=== PATIENT | female | born 1955 | race Caucasian/White ===

== ENCOUNTER 2023-02-28 11:50 | Outpatient (OUT) | payer BC, SELFPAY ==
--- NOTE | 2023-02-28 12:42 | MM_ITS ---
Patient Name: RADHA ERNANDEZ MR#: [id number] : 1955 Exam Date: 02/28/2023 Ordering Doctor: DR Jignesh Serna . RADIOLOGY REPORT PROCEDURE: MM TOMOSYNTHESIS SCREENING BI COMPARISON: MG MAMM SCREEN DANIELLE W CAD, 07/10/2017. MG MAMM SCREEN DANIELLE W CAD, 05/02/2015. INDICATIONS: screening Calculator Name NCI Breast Cancer Risk Assessment Tool 5 Year Breast Cancer Risk 1.70% Lifetime Breast Cancer Risk 5.60% Personal Breast Cancer No Personal Ovarian Cancer No Treatments None Family Cancers Father with prostate cancer at age 73. LOCATION: [facility] BREAST COMPOSITION: Scattered areas fibroglandular density. FINDINGS: DIAGNOSTIC CATEGORY 1--NEGATIVE. RIGHT BREAST: No significant suspicious finding. No significant change has occurred. LEFT BREAST: No significant suspicious finding. No significant change has occurred. RECOMMENDATIONS: ROUTINE MAMMOGRAM AND CLINICAL EVALUATION IN 12 MONTHS. PLEASE NOTE: A NORMAL MAMMOGRAM DOES NOT EXCLUDE THE POSSIBILITY OF BREAST CANCER. A CLINICALLY SUSPICIOUS PALPABLE LUMP SHOULD BE BIOPSIED. Dictated by: Javier Boyd M.D. on 02/28/2023 at 14:03 Approved by: Javier Boyd M.D. on 02/28/2023 at 14:06
== END 2023-02-28 11:51 | disposition home or self-care (01) ==
LOC: MAMMO 11:53
PROVIDERS: PCP Family Medicine; Visit Provider Family Medicine
DX: Z12.31 Encounter for screening mammogram for malignant neoplasm of breast (principal); Z80.42 Family history of malignant neoplasm of prostate
CPT/HCPCS: 77063; 77067

== ENCOUNTER 2023-11-14 18:36 | Emergency (ER) | payer OTHER, BC, SELFPAY ==
[2023-11-14 18:52] VITALS: BP 141/86; PULSE 86; TEMP 36.8; O2SAT 96; BMI 26.6
--- NOTE | 2023-11-14 18:56 | XR_ITS ---
The [address] [address] Patient Name: RADHA ERNANDEZ MRN: [id number] date: 1955 Sex: F Assigned Patient Location: ER Current Patient Location: ED.MAIN Accession/Order Number: [id number] Exam Date: 11/14/2023 19:08 Report Date: 11/14/2023 19:36 At the request of: FOUZIA CINTRON Procedure: XR wrist LT min 3V EXAM: XR wrist LT min 3V, XR forearm LT 2V HISTORY: The patient is a 68-year-old female, fall COMPARISON FINDINGS: There is a transverse fracture of the distal radial metaphysis. The lateral view demonstrates 12 degrees of dorsal angulation of the distal radial fracture fragment. The fracture is otherwise nondisplaced. There is also a minimally displaced fracture of the base of the ulnar styloid. No fractures or dislocations are seen of any of the carpal bones. No other fractures or cortical discontinuities are seen throughout the more proximal lengths of the radius and ulna. XR/XR wrist LT min 3V IMPRESSION: Dorsally angulated Colles' fracture. Electronically authenticated by: CATALINA LUCAS Date: 11/14/2023 19:36
--- NOTE | 2023-11-14 18:57 | XR_ITS ---
The [address] [address] Patient Name: RADHA ERNANDEZ MRN: [id number] date: 1955 Sex: F Assigned Patient Location: ER Current Patient Location: ED.MAIN Accession/Order Number: [id number] Exam Date: 11/14/2023 19:08 Report Date: 11/14/2023 19:36 At the request of: FOUZIA CINTRON Procedure: XR forearm LT 2V EXAM: XR wrist LT min 3V, XR forearm LT 2V HISTORY: The patient is a 68-year-old female, fall COMPARISON FINDINGS: There is a transverse fracture of the distal radial metaphysis. The lateral view demonstrates 12 degrees of dorsal angulation of the distal radial fracture fragment. The fracture is otherwise nondisplaced. There is also a minimally displaced fracture of the base of the ulnar styloid. No fractures or dislocations are seen of any of the carpal bones. No other fractures or cortical discontinuities are seen throughout the more proximal lengths of the radius and ulna. XR/XR forearm LT 2V IMPRESSION: Dorsally angulated Colles' fracture. Electronically authenticated by: CATALINA LUCAS Date: 11/14/2023 19:36
--- OUTSIDE RECORDS SUMMARY | 2023-11-14 19:09 | XMS_ITS | CCD ---
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 Engineer Name Role Phone PHYSICIAN, DEFAULT Unavailable Unavailable PHYSICIAN, DEFAULT Unavailable Unavailable PROVIDER, UNKNOWN Attending Unavailable PROVIDER, UNKNOWN Admitting Unavailable Rivka Reyez Unavailable DR JIGNESH SAEZ Primary Care Unavailable SAMSA ., TYRON Admitting Unavailable SAMSA ., TYRON Attending Unavailable NADJA, DR JIGNESH Zhou Consulting Unavailable NADJA, DR JIGNESH Zhou Attending Unavailable NADJA, DR JIGNESH Zhou Admitting Unavailable NADJA, DR JIGNESH Zhuo Primary Care Unavailable Jignesh Saez MD Primary Care Provider [phone] JIGNESH SAEZ Attending Unavailable NADJA, JIGNESH Attending Unavailable NADJA, JIGNESH Attending Unavailable NADJA, JIGNESH Attending Unavailable Jignehs Saez Primary Care Provider BRIEN WESTBROOK Referring Unavailab le JIGNESH SAEZ Primary Care Unavailable GIDEON RUELAS Attending Unavailable Medications Current Medications Medication Drug Class(es) Dates Sig (Normalized) Sig (Original) [id number] 200 actuat albuterol 0.09 mg/actuat metered dose inhaler (8 sources) beta2-Adrenergic Agonist Start: 02-18-2023 take 2 puff(s) by inhalation every four hours as needed albuterol HFA (PROVENTIL HFA, VENTOLIN HFA) 90 mcg/actuation inhaler Inhale 2 Puffs as instructed every 4 hours as needed. 0 02/18/2023 Active Start: 02-18-2023 take 2 puff(s) by in halation every four hours as needed albuterol HFA 90 mcg/act inhaler Indications: Chronic obstructive pulmonary disease with (acute) exacerbation (CMS/HCC) , Obstructive chronic bronchitis with exacerbation (CMS/HCC) INHALE 2 PUFFS EVERY 4 HOURS NEEDED 18 g 2 02/18/2023 Active albuterol (2.5 M G/3ML) 0.083% nebulizer solution Take 2.5 mg by nebulization every 4 (four) hours if needed for wheezing 0 Active Albuterol Sulfat e (2.5 MG/ 3 ML) Active amLODIPine (5 sources) Dihydropyridine Calcium Channel Bree amlodipine besylate (AMLODIPINE ORAL) Take by mouth. 0 Active take 1 tablet by mouth in the mo rning amLODIPine (Norvasc) 10 MG tablet Take 10 mg by mouth in the morning. 0 Active amLODIPine Besyl ate Active Arnuity Ellipta (1 source) Arnuity Ellipta Active cholecalciferol 0.05 mg oral tablet (4 sources) Vitamin D Start: 021 take 1 tablet by mouth once daily cholecalciferol (Vitamin D-3) 50 MCG (1999) tablet Indications: Vitamin D deficiency, unspecified , Vitamin D deficiency TAKE 1 TABLET BY MOUTH EVERY DAY 30 tablet 5 02/11/2023 Active doxycycline monohydrate 100 mg oral capsule (1 source) Tetracycline-class Drug Start: 023 take 1 capsule by mouth every twelve hours Doxycycline Monohydrate 100 MG 1 capsule Orally every 12 hrs for 7 days May, Active fluticasone/umeclidin/ vilanter (TRELEGY ELLIPTA INHALATION) (1 source) fluticasone/umec lidin /vilanter (TRELEGY ELLIPTA INHALATION) Inhale as instructed. 0 Active mupirocin 0.02 mg/mg topical ointment (1 source) RNA Synthetase Inhibitor Antibacterial Start: 023 Mupirocin 2 % 1 application to affected area Externally 2 times a day for 7 days May, Active omeprazole 40 mg delayed release oral capsule (4 sources) Proton Pump Inhibitor take 1 capsule by mouth before mealtime omeprazole (PriLOSEC) [address] capsule Take 40 mg by mouth in the morning. Take before meals. Do not crush or chew.. 0 Active Omeprazole Activ e phentermine hydrochloride 37.5 mg oral tablet (2 sources) Sympathomimetic Amine Anorectic Start: 04-11-2023 End: 05-11-2023 take 1 tablet by mouth before mealtime phentermine (Adipex-P) 37.5 MG tablet Indications: Obesity (BMI 30-39.9) Take 1 tablet (37.5 mg) by mouth in the morning. Take before meals. 30 tablet 0 04/11/2023 05/11/2023 Active Trelegy Ellipta 200-62.5-25 MCG/ACT aerosol powder (3 sources) Start: 02-19-2023 take 1 puff(s) by inhalation in the morning Trelegy Ellipta 200-62.5-25 MCG/ACT aerosol powder Inhale 1 puff in the morning. 0 02/19/2023 Active varenicline 1 mg oral tablet (8 sources) Partial Cholinergic Nicotinic Agonist Start: 04-11-2023 take 1 tablet by mouth in the morning varenicline (Chantix) 1 MG tablet Indications: Tobacco user Take 1 tablet (1 mg) by mouth in the morning and 1 tablet (1 mg) before bedtime. Take with full glass of water.. 60 tablet 1 04/11/2023 Active Start: 04-11-2023 take 1 tablet by angela th in the morning varenicline (Chantix) 1 MG tablet Indications: Tobacco user Take 1 tablet (1 mg) by mouth in the morning and 1 tablet (1 mg) before bedtime. Take with full glass of water.. 60 tablet 1 04/11/2023 Active Start: 02-19-2023 End: 04-11-2023 Varenicline Tartrate, Alonzo chicas, (Chantix Starting Month ) 0.5 MG X 11 & 1 MG X 42 tablet therapy pack Indications: Tobacco user Take 1 Dose by mouth See administration instructions 1 each 0 02/19/2023 04/11/2023 Discontinued vitamin B12 (1 source) Vitamin B12 Vitamin B 12 Act karine Completed/Discontinued Medications Medication Drug Class(es) Dates Sig (Normalized) Sig (Original) albuterol 0.833 mg/ml / ipratropium bromide 0.167 mg/ml inhalation solution (1 source) Anticholinergic, beta2-Adrenergic Agonist Start: 03-31-2017 take 3 mL by inhalation every six hours Ipratropium-Alb uterol 0.5-2.5 (3) MG/3ML 3 ml Inhalation every 6 hrs Mar, Not-Taking cefuroxime 500 mg oral tablet (1 source) Cephalosporin Antibacterial Start: 10-03-2016 take 1 tablet by mouth every twelve hours Cefuroxime Axetil 500 MG 1 tablet Orally Twice a day for 10 day(s) Oct, Not-Taking clarithromycin 500 mg oral tablet (1 source) Macrolide Antimicrobial Start: 02-22-2017 take 2 tablets by mouth once daily at mealtime Biaxin XL 500 MG 2 tablets with food Orally Once a day for 7 day(s) Feb, Not-Taking dexamethasone 1 mg/ml / neomycin 3.5 mg/ml / polymyxin b 11975 unt/ml ophthalmic suspension (1 source) Aminoglycoside Antibacterial, Polymyxin-class Antibacterial, Corticosteroid Start: 10-03-2016 take 2 drop(s) into the eye(s) three times daily Maxitrol 3.5-09222-4.1 2 drops into affected eye Ophthalmic Three times a day for 7 days Oct, Not-Taking methylPREDNISolone (1 source) Corticosteroid Start: 03-31-2017 Depo-Medrol 80 mg Mar, 80 mg predniSONE 20 mg oral tablet (1 source) Start: 02-22-2017 take 1 tablet by mouth once daily, then take 1 tablet by mouth once daily at mealtime predniSONE 20 MG 60 mg daily for 3 days then 40mg daily for 3 days then 1 tablet daily for 3 days then 20mg daily fo Orally take with food for 9 days Feb, Not-Taking ProAir HFA 108 (90 Base) MCG/ACT (1 source) Start: 02-22-2017 take 2 puff(s) by inhalation every four to six hours as needed ProAir HFA 108 (90 Base) MCG/ACT 2 puffs as needed Inhalation every 4-6 hrs Feb, Not-Taking Problems Problem Classification Problem Date Documented Date Episodic/Chronic Chronic obstructive pulmonary disease and bronchiectasis (6 sources) Acute exacerbation of chronic obstructive airways disease; Translations: [Chronic obstructive pulmonary disease with (acute) exacerbation] Onset: 02-19-2023 02-19-2023 Chronic Diabetes mellitus without complication (4 sources) Prediabetes; Translations: [Prediabetes] Onset: 04-27-2022 02-19-2023 Episodic Diseases of white blood cells (3 sources) 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; Translations: [Other eosinophilia] Onset: 02-19-2023 02-19-2023 Chronic Disorders of lipid metabolism (4 sources) Hyperlipidemia, unspecified; Translations: [Dyslipidemia] Onset: 04-27-2022 02-19-2023 Chronic E Codes: Natural/environment (1 source) Bitten or stung by nonvenomous insect and other nonvenomous arthropods, initial encounter Episodic Esophageal disorders (3 sources) Gastroesophageal reflux disease; Translations: [Gastro-esophageal reflux disease without esophagitis] Onset: 02-19-2023 02-19-2023 Chronic Essential hypertension (6 sources) Essential (primary) hypertension; Translations: [Benign essential hypertension] Onset: 04-27-2022 02-19-2023 Chronic Nutritional deficiencies (7 sources) Vitamin D deficiency, unspecified; Translations: [Vitamin D deficiency] Onset: 04-24-2022 Chronic Other aftercare (1 source) Other residential (current) drug therapy; Translations: [OTH .NET DEVELOPER CURRENT DRUG THERAPY] Onset: 04-27-2022 Episodic Other eye disorders (1 source) Ptosis of eyelid; Translations: [Unspecified ptosis of bilateral eyelids] 10-09-2023 Episodic Other nutritional; endocrine; and metabolic disorders (1 source) Obesity, unspecified; Translations: [OBESITY UNSPECIFIED] Onset: 04-27-2022 Chronic Other nutritional; endocrine; and metabolic disorders (1 source) Body mass index (BMI) 30.0-30.9, adult; Translations: [BODY MASS INDEX BMI 30.0-30.9 ADULT] Onset: 04-27-2022 Chronic Other nutritional; endocrine; and metabolic disorders (4 sources) Body mass index 30+ - obesity; Translations: [Obesity, unspecified] Onset: 04-11-2023 04-11-2023 Chronic Residual codes; unclassified (3 sources) Hypersomnia; Translations: [Hypersomnia, unspecified] Onset: 02-19-2023 02-19-2023 Chronic Residual codes; unclassified (5 sources) Edema of lower extremity; Translations: [Localized edema] Onset: 02-19-2023 02-19-2023 Episodic Residual codes; unclassified (5 sources) Tobacco user; Translations: [Tobacco use] Onset: 02-19-2023 02-19-2023 Episodic Results Test Name Value Interpretation Reference Range Facility EXTERNAL PHOTOS OU (BOTH EYE S)on 10-09-2023 [facility] Radiology Study observation (narrative) [facility] PTOSIS VISUAL FIELD OU (BOTH EYES)on 10-09-2023 [facility] Radiology Study observation (narrative) [facility] CBC AUTO DIFFon 04-24-2022 BASO # 0.1 103/ul Normal 0.0-0.1 [facility] Comment on above: Performed By: #### C BC #### [facility] [address] [address] [address] Brigette Peñaloza Basophils/100 WBC (Bld) 0.7 % Normal 0.2-2.0 [facility] Comment on above: Performed By: #### C BC #### [facility] [address] [address] [address] Brigette Peñaloza EO # 0.3 103/ul Normal 0.0-0.7 [facility] Comment on above: Performed By: #### C BC #### [facility] [address] [place] [address] Dr. Brigette Peñaloza Eosinophils/100 WBC (Bld) 4.9 % Normal 0.9-7.0 [facility] Comment on above: Performed By: #### C BC #### [facility] [address] [place] [address] Dr. Brigette Peñaloza Erythrocyte distribution width (RBC) [Ratio] 12.7 % Normal 11.0-15.0 [facility] Comment on above: Performed By: #### C BC #### [facility] [address] [place] [address] Dr. Brigette Peñaloza Hematocrit (Bld) [Volume fraction] 48.0 % Normal 36.0-48.0 [facility] Comment on above: Performed By: #### C BC #### [facility] [address] [place] [address] Dr. Brigette Peñaloza Hemoglobin (Bld) [Mass/Vol] 16.1 g/dL Critically high 12.0-16.0 [facility] Comment on above: Performed By: #### C BC #### [facility] [address] [place] [address] Dr. Brigette Peñaloza IG # 0.02 10e3/ul Normal 0.00-0.03 [facility] Comment on above: Performed By: #### C BC #### [facility] [address] [address] [address] Brigette Peñaloza IG % 0.3 % Normal 0.0-0.5 [facility] Comment on above: Performed By: #### C BC #### [facility] [address] [place] [address] Dr. Brigette Peñaloza LYMPH # 2.7 103/ul Normal 1.2-3.8 [facility] Comment on above: Performed By: #### C BC #### [facility] [address] [place] [address] Dr. Brigette Peñaloza Lymphocytes/100 WBC (Bld) 39.2 % Normal 20.5-60.0 [facility] Comment on above: Performed By: #### C BC #### [facility] [address] [place] [address] Dr. Brigette Peñaloza MANUAL DIFF REQ NO Normal [facility] Comment on above: Performed By: #### C BC #### [facility] [address] [place] [address] Dr. Brigette Peñaloza MCH (RBC) [Entitic mass] 30.3 pg Normal 26.7-34.0 [facility] Comment on above: Performed By: #### C BC #### [facility] [address] [place] [address] Dr. Brigette Peñaloza MCHC (RBC) [Mass/Vol] 33.5 g/dL Normal 29.9-35.2 [facility] Comment on above: Performed By: #### C BC #### [facility] [address] [place] [address] Dr. Brigette Peñaloza MCV (RBC) [Entitic vol] 90.4 fL Normal 81.0-99.0 [facility] Comment on above: Performed By: #### C BC #### [facility] [address] [place] [address] Dr. Brigette Peñaloza MONO # 0.7 103/ul Normal 0.3-0.8 [facility] Comment on above: Performed By: #### C BC #### [facility] [address] [place] [address] Dr. Brigette Peñaloza Monocytes/100 WBC (Bld) 9.9 % Normal 1.7-12.0 [facility] Comment on above: Performed By: #### C BC #### [facility] [address] [place] [address] Dr. Brigette Peñaloza NEUT # 3.1 103/ul Normal 1.4-6.5 [facility] Comment on above: Performed By: #### C BC #### [facility] [address] [place] [address] Dr. Brigette Peñaloza Neutrophils/100 WBC (Bld) 45.0 % Normal 43.0-75.0 [facility] Comment on above: Performed By: #### C BC #### [facility] [address] [place] [address] Dr. Brigette Peñaloza Platelet mean volume (Bld) [Entitic vol] 10.2 fL Normal 9.5-13.5 [facility] Comment on above: Performed By: #### C BC #### [facility] [address] [place] [address] Dr. Brigette Peñaloza PLT 283 103/ul Normal 150-450 [facility] Comment on above: Performed By: #### C BC #### [facility] [address] [place] [address] Dr. Brigette Peñaloza RBC 5.31 106/ul Normal 4.20-5.40 [facility] Comment on above: Performed By: #### C BC #### [facility] [address] [place] [address] Dr. Brigette Peñaloza WBC 7.0 103/ul Normal 4.0-11.0 [facility] Comment on above: Performed By: #### C BC #### [facility] [address] [place] [address] Dr. Brigette Peñaloza GLYCOHEMOGLOBIN A1Con 2022 ADA RECOMMENDATION SEE BELOW Normal [facility] Comment on above: Result Comment: ADA RECOMMENDED LIMIT 4.0 - 6.0 ADA THERAPEUTIC TARGET < 7.0 ACTION SUGGESTED > 7.0 Performed By: #### A 1C #### [facility] [address] [address] [address] Brigette Peñaloza Glucose [Mass/Vol] 117 mg/dL Normal [facility] Comment on above: Performed By: #### A 1C #### [facility] [address] [address] [address] Brigette Peñaloza HbA1c (Bld) [Mass fraction] 5.7 % Normal 4.5-6.2 [facility] Comment on above: Performed By: #### A 1C #### [facility] [address] [address] [address] Brigette Peñaloza LIPID PROFILEon 04-24-2022 CHOL-HDL RATIO NORM SEE BELOW Normal [facility] Comment on above: Result Comment: 3.3 - 4.4 LOW RISK 4.4 - 7.1 AVERAGE RISK 7.1 - 11.0 MODERATE RISK >11.0 HIGH RISK Performed By: #### L IPID, TSH, LIVER, BMP #### [facility] [address] [address] [address] Brigette Peñaloza Cholesterol [Mass/Vol] 187 mg/dL Normal <=200 [facility] Comment on above: Performed By: #### L IPID, TSH, LIVER, BMP #### [facility] [address] [address] [address] Brigette Peñaloza Cholesterol in HDL [Mass/Vol] 54 mg/dL Normal 40-60 [facility] Comment on above: Performed By: #### L IPID, TSH, LIVER, BMP #### [facility] [address] [address] [address] Brigette Peñaloza Cholesterol in LDL [Mass/Vol] 105.6 mg/dL Normal [facility] Comment on above: Performed By: #### L IPID, TSH, LIVER, BMP #### [facility] [address] [address] [address] Brigette Peñaloza Cholesterol.total/Cho lesterol in HDL [Mass ratio] 3.5 {ratio} Normal [facility] Comment on above: Performed By: #### L IPID, TSH, LIVER, BMP #### [facility] [address] [address] [address] Brigette Peñaloza HDL NORMAL > or = 60 mg/dl - LOW CARDIOVASCULAR RISK <40 mg/dl - HIGH CARDIOVASCULAR RISK Normal [facility] Comment on above: Performed By: #### L IPID, TSH, LIVER, BMP #### [facility] [address] [address] [address] Brigette Peñaloza LDL CALC NORMAL SEE BELOW Normal [facility] Comment on above: Result Comment: <100 mg/dl OPTIMAL 100 - 129 mg/dl NEAR OR ABOVE OPTIMAL 130 - 159 mg/dl BORDERLINE HIGH 160 - 189 mg/dl HIGH >190 mg/dl VERY HIGH Performed By: #### L IPID, TSH, LIVER, BMP #### [facility] [address] [place] [address] Dr. Brigette Peñaloza Triglyceride [Mass/Vol] 137 mg/dL Normal <=150 [facility] Comment on above: Performed By: #### L IPID, TSH, LIVER, BMP #### [facility] [address] [address] [address] Brigette Peñaloza VLDL CALC 27.4 mg/dL Normal [facility] Comment on above: Performed By: #### L IPID, TSH, LIVER, BMP #### [facility] [address] [place] [address] Dr. Brigette Peñaloza LIVER PROFILEon 04-24-2022 Albumin [Mass/Vol] 3.6 g/dL Normal 3.4-5.0 [facility] Comment on above: Performed By: #### L IPID, TSH, LIVER, BMP #### [facility] [address] [place] [address] Dr. Brigette Peñaloza Albumin/Globulin [Mass ratio] 1.0 {ratio} Normal [facility] Comment on above: Performed By: #### L IPID, TSH, LIVER, BMP #### [facility] [address] [place] [address] Dr. Brigette Peñaloza ALP [Catalytic activity/Vol] 97 U/L Normal 46-116 [facility] Comment on above: Performed By: #### L IPID, TSH, LIVER, BMP #### [facility] [address] [address] [address] Brigette Peñaloza ALT [Catalytic activity/Vol] 41 U/L Normal 14-59 [facility] Comment on above: Performed By: #### L IPID, TSH, LIVER, BMP #### [facility] [address] [address] [address] Brigette Peñaloza AST [Catalytic activity/Vol] 24 U/L Normal 15-37 [facility] Comment on above: Performed By: #### L IPID, TSH, LIVER, BMP #### [facility] [address] [address] [address] Brigette Peñaloza BILI, CONJUGATED 0.1 mg/dL Normal 0.0-0.2 [facility] Comment on above: Performed By: #### L IPID, TSH, LIVER, BMP #### [facility] [address] [place] [address] Dr. Brigette Peñaloza Bilirubin [Mass/Vol] 0.3 mg/dL Normal 0.2-1.0 [facility] Comment on above: Performed By: #### L IPID, TSH, LIVER, BMP #### [facility] [address] [address] [address] Brigette Peñaloza Globulin (S) [Mass/Vol] 3.5 g/dL Normal [facility] Comment on above: Performed By: #### L IPID, TSH, LIVER, BMP #### [facility] [address] [place] [address] Dr. Brigette Peñaloza Protein [Mass/Vol] 7.1 g/dL Normal 6.4-8.2 [facility] Comment on above: Performed By: #### L IPID, TSH, LIVER, BMP #### [facility] [address] [address] [address] Brigette Peñaloza PROF CHEM 8 (BAS METB)on Anion gap [Moles/Vol] 8.7 mmol/L Normal [facility] Comment on above: Performed By: #### L IPID, TSH, LIVER, BMP #### [facility] [address] [place] [address] Dr. Brigette Peñaloza Calcium [Mass/Vol] 9.1 mg/dL Normal 8.5-10.1 [facility] Comment on above: Performed By: #### L IPID, TSH, LIVER, BMP #### [facility] [address] [address] [address] Brigette Peñaloza Chloride [Moles/Vol] 106 mmol/L Normal 98-107 [facility] Comment on above: Performed By: #### L IPID, TSH, LIVER, BMP #### [facility] [address] [address] [address] Brigette Peñaloza CO2 [Moles/Vol] 29.7 mmol/L Normal 21.0-32.0 [facility] Comment on above: Performed By: #### L IPID, TSH, LIVER, BMP #### [facility] [address] [place] [address] Dr. Brigette Peñaloza Creatinine [Mass/Vol] 0.81 mg/dL Normal 0.55-1.02 [facility] Comment on above: Performed By: #### L IPID, TSH, LIVER, BMP #### [facility] [address] [place] [address] Dr. Brigette Pñealoza EGFR-AF SAMOAN >60 Normal >=60 [facility] Comment on above: Performed By: #### L IPID, TSH, LIVER, BMP #### [facility] [address] [place] [address] Dr. Brigette Peñaloza EGFR-NON AF SAMOAN >60 Normal >=60 [facility] Comment on above: Performed By: #### L IPID, TSH, LIVER, BMP #### [facility] [address] [address] [address] Brigette Peñaloza Glucose [Mass/Vol] 114 mg/dL Critically high 74-106 [facility] Comment on above: Performed By: #### L IPID, TSH, LIVER, BMP #### [facility] [address] [address] [address] Brigette Peñaloza Potassium [Moles/Vol] 4.4 mmol/L Normal 3.5-5.1 [facility] Comment on above: Performed By: #### L IPID, TSH, LIVER, BMP #### [facility] [address] [place] [address] Dr. Brigette Peñaloza Sodium [Moles/Vol] 140 mmol/L Normal 136-145 [facility] Comment on above: Performed By: #### L IPID, TSH, LIVER, BMP #### [facility] [address] [place] [address] Dr. Brigette Peñaloza Urea nitrogen [Mass/Vol] 9.0 mg/dL Normal 7.0-18.0 [facility] Comment on above: Performed By: #### L IPID, TSH, LIVER, BMP #### [facility] [address] [place] [address] Dr. Brigette Peñaloza Urea nitrogen/Creatinine [Mass ratio] 11.1 mg/mg Normal [facility] Comment on above: Performed By: #### L IPID, TSH, LIVER, BMP #### [facility] [address] [place] [address] Dr. Brigette Peñaloza TSHon 04-24-2022 TSH 1.598 uIU/mL Normal 0.358-3.740 [facility] Comment on above: Performed By: #### L IPID, TSH, LIVER, BMP #### [facility] [address] [place] [address] Dr. Brigette Peñaloza VITAMIN D 25 OHon 04-24-2022 VIT D 25-OH 50.4 ng/mL Normal [facility] Comment on above: Performed By: #### V ITAD #### [facility] [address] [place] [address] Dr. Brigette Peñaloza VIT D RANGES SEE BELOW Normal [facility] Comment on above: Result Comment: <20 ng/mL Vit D deficient 20 - <30 ng/mL Vit D insufficient 30 - 100 ng/mL Vit D sufficient >100 ng/mL Potential Toxicity Performed By: #### V ITAD #### [facility] [address] [place] [address] Dr. Brigette Peñaloza Vital Signs Date Time Vital Sign Value Performing Clinician Facility 04-11-2023 13:13-0500 Body height 167.6 cm Jignesh Saez MD Work Phone: [facility] 04-11-2023 13:13-0500 Body mass index (BMI) [Ratio] 29.7 kg/m2 Jignesh Saez MD Work Phone: [facility] 04-11-2023 13:13-0500 Body temperature 97.3 [degF] Jignesh Saez MD Work Phone: [facility] 04-11-2023 13:13-0500 Body weight 83.46 kg Jignesh Saez MD Work Phone: [facility] 04-11-2023 13:13-0500 Diastolic blood pressure 70 mm[Hg] Jignesh Saez MD Work Phone: [facility] 04-11-2023 13:13-0500 Heart rate 80 /min Jignesh Saez MD Work Phone: [facility] 04-11-2023 13:13-0500 SaO2% (BldA) [Mass fraction] 95 % Jignesh Saez MD Work Phone: [facility] 04-11-2023 13:13-0500 Systolic blood pressure 130 mm[Hg] Jignesh Saez MD Work Phone: [facility] 05-13-2022 15:30-0400 Body height 165.74 cm Rivka Reyez Other [employer] Other 05-13-2022 15:30-0400 Body mass index (BMI) [Ratio] 30.45 kg/m2 Rivka Reyez Other [employer] Other 05-13-2022 15:30-0400 Body temperature 98.9 [degF] Rivka Reyez Other [employer] Other 05-13-2022 15:30-0400 Body weight 83.64 kg Rivka Reyez Other [employer] Other 05-13-2022 15:30-0400 Diastolic blood pressure 69 mm[Hg] Rivka Reyez Other [employer] Other 05-13-2022 15:30-0400 SaO2% (BldA) [Mass fraction] 93 % Rivka Reyez Other [employer] Other 05-13-2022 15:30-0400 Systolic blood pressure 116 mm[Hg] Rivka Reyez Other [employer] Other Encounters Encounter Date Encounter Type Care Provider Facility Start: 10-09-2023 End: 10-09-2023 ambulatory BRIEN WESTBROOK Facility:[facility] Start: 10-09-2023 End: 10-09-2023 Office outpatient new 45 minutes Gideon Ruelas MD Work Phone: Ophthalmology Comment on above: Ptosis of both eyeli ds (Primary Dx) Start: 07-11-2023 End: 07-11-2023 ambulatory JIGNESH SAEZ Not Available Start: 05-07-2023 End: 05-07-2023 ambulatory JIGNESH SAEZ Not Available Start: 04-11-2023 End: 04-11-2023 ambulatory JIGNESH SAEZ Not Available Start: 04-11-2023 Bamboo flowsheet Jignesh Saez MD Work Phone: [facility] Start: 04-11-2023 Bamboo flowsheet Jignesh Saez MD Work Phone: [facility] Start: 04-11-2023 End: 04-11-2023 Office outpatient visit 25 minutes Jignesh Saez MD Work Phone: [facility] Comment on above: Essential hypertensi on, benign (CMS/HCC) (Primary Dx); Chronic obstructive pulmonary disease, unspecified COPD type (CMS/HCC); Tobacco user; Obesity (BMI 30-39.9); Lower extremity edema Start: 02-19-2023 End: 02-19-2023 ambulatory JIGNESH SAEZ Not Available Start: 05-13-2022 End: 05-13-2022 ambulatory Rivka Dereje Other [employer] Other Start: 05-13-2022 Office outpatient ne w 20 minutes Rikva Reyez [facility] Start: 04-24-2022 End: 04-25-[address] JIGNESH SAEZ Facility:[facility] Start: 09-27-2021 End: 09-27-[address] JIGNESH SAEZ Facility:[facility] Start: 07-17-2020 End: 07-18-2020 ambulatory UNKNOWN PROVIDER Facility:[facility] Start: 04-19-2017 End: 04-20-2017 Ambulatory DEFAULT PHYSICIAN Facility:[facility] Procedures Date Procedure Procedure Detail Performing Clinician Start: 10-09-2023 End: 10-09-2023 Xtrnl ocular photog w/i&r docmt medical progre Gideon Ruelas MD Work Phone: Start: 02-28-2023 Mammography Jignesh nowak MD Work Phone: Start: 10-09-2018 Colonoscopy Jignesh nowak MD Work Phone: Plan of Treatment Date Care Activity Detail Author Start: 10-09-2028 Screening for malign ant neoplasm of colon [facility] Start: 02-29-2024 Screening for malign ant neoplasm of breast Mammogram [facility] Start: 11-03-2023 Influenza vaccination Influenza Vacc ine (#1) [facility] Start: 05-07-2023 End: 05-07-2023 Patient encounter procedure 05/07/2023 9:15 AM EST Office Visit [facility] [address] [place] [id number] Jignesh Saez MD [address] [place] [id number] [facility] Start: 03-04-2023 Advance Directive Discussion Advance Directive Discussion [facility] Start: 11-02-2022 Covid-19 Vaccine ( season) Covid-19 Vaccine ( season) [facility] Start: 11-02-2022 Influenza vaccination Influenza Vacc ine (#1) [facility] Start: 05-05-2019 Pneumococcal Vaccine : 65+ (1 of 1 - PCV) Pneumococcal Vaccine: 65+ (1 of 1 - PCV) [facility] Start: 05-05-2019 Screening for osteoporosis Bone Density Screening [facility] Start: 2014 RSV Vaccine (1 - 1-d ose 60+ series) RSV Vaccine (1 - 1-dose 60+ series) [facility] Start: 2004 Shingrix Vaccine (1 of 2) Shingrix V accine (1 of 2) [facility] Start: 05-05-1999 Diabetes Screening Diabetes Screenin g [facility] Start: 05-05-1999 Lipid panel Lipid Screening [facility] Start: 05-05-1999 Screening for malign ant neoplasm of colon [facility] Start: 1994 Screening for malign ant neoplasm of breast Mammogram Screening [facility] Start: 1973 Urine microalbumin profile DTaP,Tdap,Td Vaccine (1 - Tdap) [facility] Start: 1972 Anxiety Screening Anxiety Screening [facility] Start: 1972 Depression Screening Depression Scre ening [facility] Start: 1972 Hepatitis C screening Hepatitis C Sc miladisning [facility] Start: 1960 Pneumococcal Vaccine : 65+ Years (1 - PCV) Pneumococcal Vaccine: 65+ Years (1 - PCV) [facility] Start: 1954 Screening for malign ant neoplasm of colon [facility] Payers Date Payer Category Payer Medicare [id number] 2019 Unknown 1959 [facility] [id number] 1960 Medicare [id number] 1954 Unknown 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 Other Start: 02-19-2023 End: 10-09-2023 Tobacco smoking status [facility] Ex-smoker [facility] End: 06-09-2017 History of tobacco use Current smoker [facility] End: 06-09-2017 History of tobacco use Cigarette Smoker [facility] Start: 02-19-2023 End: 10-09-2023 Cigarettes smoked current (pack per day) - Reported 0.3 [facility] Start: 02-19-2023 End: 10-09-2023 Tobacco use and exposure Smokeless tobacco non-user [facility] Start: 1955 Sex Assigned At Not on file [facility] Start: 10-09-2023 Alcohol intake Current drinke r of alcohol (finding) [facility] National Score (1-100), lower number is lower risk 80 [facility] Start: 10-09-2023 Alcohol Comment occasional [facility] Clinical Note 10-09-2023 Note Date & Type Note Facility 10-09-2023 Note Date of Procedure 10/09/2023. Notes Bilateral upper eyelid ptosis with brow ptosis, dermatochalasis, skin on lashes temporally. [facility] Clinical Note 10-09-2023 Note Date & Type Note Facility 10-09-2023 Note Date of Procedure 10/09/2023. 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 Left Eye Difference between Bishop visual field results of lids tapped and untaped 15. Interpretation Right Eye Decreased superior visual field. Left Eye Decreased superior visual field. [facility] Instructions 10-09-2023 Patient Instructions Note Date & Type Note Facility 10-09-2023 Instructions Gideon Ruelas MD - 10/09/2023 11:44 AM EDT Blepharoptosis, bilateral upper eyelids -Levator dehiscence and dermatochalasis in setting of mild brow ptosis Patient has brow ptosis lower than orbital rims, especially laterally -Without brow lift there will be suboptimal improvement of heavy upper lids. Consider bilateral upper lid blepharoplasty, will still have some heaviness 2/2 brow ptosis, but hopefully improved. Need certain amt of skin to close eyes. Discussed ptosis surgery. Usually ptosis surgery is done either via an anterior or posterior approach. The anterior approach is more powerful but less predictable and the posterior approach is more predictable but less powerful. Contact lens will be placed in eye(s) to protect eye from stitch, risk of corneal abrasion discussed Ptosis surgery sometimes is unpredictable; may need multiple surgeries Risk yoel of dryness of eye/asymmetry Xavier's phenomenon can also occur (other side drops because less drive to raise eyelids as well as brows drop from less forehead use to raise eyelids) *bloody tears after surgery expected, maybe bleeding episode, if occurs hold pressure 10-15 min documented in this encounter [facility] Progress note 10-09-2023 Note Date & Type Note Facility 10-09-2023 Note HNO ID: [id number] Author: GIDEON RUELAS MD Service: ? Author Type: Fellow Type: Progress Notes Filed: 11/06/2023 15:39 Note Text: History: Pepper Lacy is a 68 year old woman with history of droopy eyelids, now bothersome for the past year. She was referred by her customer service engineer Dr. Westbrook for dermatochalasis. She is most bothered when she looks to the right. Otherwise she also has some trouble looking to the left. Also notes tearing and dryness. No problems with eyelids in the past. No diplopia. No trouble breathing or holding her head up. No recent changes to her medications. Notes previously took drops for dryness, stopped taking them because they did not help. Visual field review: Right: 15 degree improvement with taping, within 20 degrees of fixation nasally Left: 15 degree improvement with taping, within 20 degrees of fixation nasally Photos obtained. Exam: Mild brow ptosis bilateral Deep superior sulcus Skin on lashes laterally MRD1: 1.0/1.5 Post-Joe MRD1: 3.0/3.5 AL: LF: EOMs full both eyes Blepharoptosis, bilateral upper eyelids -Levator dehiscence in setting of mild brow ptosis Patient has brow ptosis lower than orbital rims, especially laterally -Without brow lift there will be suboptimal improvement of heavy upper lids. Consider bilateral upper lid blepharoplasty, will still have some heaviness 2/2 brow ptosis, but hopefully improved. Need certain amt of skin to close eyes. Discussed ptosis surgery. Usually ptosis surgery is done either via an anterior or posterior approach. The anterior approach is more powerful but less predictable and the posterior approach is more predictable but less powerful. Contact lens will be placed in eye(s) to protect eye from stitch, risk of corneal abrasion discussed Ptosis surgery sometimes is unpredictable; may need multiple surgeries Risk yoel of dryness of eye/asymmetry Xavier's phenomenon can also occur (other side drops because less drive to raise eyelids as well as brows drop from less forehead use to raise eyelids) *bloody tears after surgery expected, maybe bleeding episode, if occurs hold pressure 10-15 min Patient elects to observe. States she just wanted to make sure there was nothing that absolutely needed correction. Will return in 1 year prn. I have confirmed and edited as necessary the relevant ophthalmic history, ROS, and the neuro exam findings as obtained by others. I have seen and examined Pepper Lacy. I also have reviewed and agree with the assessment and plan as stated above and agree with all of its relevant components. I, Gideon Ruelas MD, personally performed the services described in this documentation. I have reviewed the chart and discharge instructions (if applicable) and agree that the record reflects my personal performance and is accurate and complete. If clarification is needed regarding any of the above, please contact me directly at [phone]. Gideon Ruelas MD [facility] History of Present illness Narrative 10-09-2023 Gideon Ruelas MD - 10/09/2023 11:17 AM EDT Note Date & Type Note Facility 10-09-2023 History of Presen t illness Narrative History: Pepper Lacy is a 68 year old woman with history of droopy eyelids, now bothersome for the past year. She was referred by her customer service engineer Dr. Westbrook for dermatochalasis. She is most bothered when she looks to the right. Otherwise she also has some trouble looking to the left. Also notes tearing and dryness. No problems with eyelids in the past. No diplopia. No trouble breathing or holding her head up. No recent changes to her medications. Notes previously took drops for dryness, stopped taking them because they did not help. Visual field review: Right: 15 degree improvement with taping, within 20 degrees of fixation nasally Left: 15 degree improvement with taping, within 20 degrees of fixation nasally Photos obtained. Exam: Mild brow ptosis bilateral Deep superior sulcus Skin on lashes laterally MRD1: 1.0/1.5 Post-Joe MRD1: 3.0/3.5 AL: LF: EOMs full both eyes Blepharoptosis, bilateral upper eyelids -Levator dehiscence in setting of mild brow ptosis Patient has brow ptosis lower than orbital rims, especially laterally -Without brow lift there will be suboptimal improvement of heavy upper lids. Consider bilateral upper lid blepharoplasty, will still have some heaviness 2/2 brow ptosis, but hopefully improved. Need certain amt of skin to close eyes. Discussed ptosis surgery. Usually ptosis surgery is done either via an anterior or posterior approach. The anterior approach is more powerful but less predictable and the posterior approach is more predictable but less powerful. Contact lens will be placed in eye(s) to protect eye from stitch, risk of corneal abrasion discussed Ptosis surgery sometimes is unpredictable; may need multiple surgeries Risk yoel of dryness of eye/asymmetry Xavier's phenomenon can also occur (other side drops because less drive to raise eyelids as well as brows drop from less forehead use to raise eyelids) *bloody tears after surgery expected, maybe bleeding episode, if occurs hold pressure 10-15 min Patient elects to observe. States she just wanted to make sure there was nothing that absolutely needed correction. Will return in 1 year prn. documented in this encounter [facility] History of Present illness Narrative 04-11-2023 Jignesh Saez MD - 04/11/2023 1:27 PM Araceli Saez MD - 04/11/2023 1:27 PM Araceli Saez MD - 04/11/2023 1:27 PM Araceli Saez MD - 04/11/2023 1:27 PM EST Note Date & Type Note Facility 04-11-2023 History of Presen t illness Narrative Associated Problem(s): Obesity (BMI 30-39.9) Patient overweight and difficult time losing weight. Discussed proper diet and regular aerobic exercise. Recommend Weight Watchers and need to limit calories and smaller portions. Need to increase activity and regular aerobic exercise several days a week for 30 minutes at a time. Interested in adipex and warned of potential cardiac side effects. Script written for first month and will need to recheck weight in 1 month. OARRS reviewed. Continue medications as prescribed. Associated Problem(s): Lower extremity edema No edema and elevate legs PRN. Associated Problem(s): Tobacco user Doing well with chantix and stopped smoking. Continue medication for additional 8 weeks. Associated Problem(s): Essential hypertension, benign (CMS/HCC) BP controlled and monitor PRN. Associated Problem(s): COPD (chronic obstructive pulmonary disease) ([facility]) Breathing improved after stopping smoking and continue trelegy. Use albuterol PRN. Subjective Patient ID: Pepper Lacy is a 67 y.o. female who presents for Follow-up (1 m). Follow up HTN, COPD, smoking, and edema. Patient doing well today. Checking BP PRN and typically controlled. BP normal today. Taking medication daily and tolerating without side effects. Stopped smoking and doing well with chantix. Still occasional cravings and will continue medication. COPD improved. Mild SOB with exertion. No cough or sputum. Using trelegy PRN but not needed as often. Using albuterol PRN and helps when needed. Edema controlled with medication. Mild swelling at end of day and if on feet a lot. Edema improved in am and with elevation. Wants adipex for weight loss. Gained 2 pounds since last visit. Plan on increasing activity and walking more. Plan on watching diet and eating healthier. Review of Systems Respiratory: Negative for cough, shortness of breath and wheezing. Cardiovascular: Negative for chest pain and palpitations. Gastrointestinal: Negative for abdominal pain, diarrhea, nausea and vomiting. Genitourinary: Negative for dysuria. Objective Physical Exam Constitutional: General: She is not in acute distress. Appearance: Normal appearance. HENT: Head: Normocephalic. Right Ear: Tympanic membrane normal. Left Ear: Tympanic membrane normal. Eyes: Extraocular Movements: Extraocular movements intact. Pupils: Pupils are equal, round, and reactive to light. Cardiovascular: Rate and Rhythm: Normal rate and regular rhythm. Heart sounds: No murmur heard. No friction rub. No gallop. Pulmonary: Effort: Pulmonary effort is normal. Breath sounds: Normal breath sounds. No wheezing, rhonchi or rales. Abdominal: General: Bowel sounds are normal. There is no distension. Palpations: Abdomen is soft. Tenderness: There is no abdominal tenderness. There is no guarding or rebound. Musculoskeletal: Cervical back: Neck supple. Right lower leg: No edema. Left lower leg: No edema. Neurological: Mental Status: She is alert. Assessment/Plan Problem List Items Addressed This Visit Essential hypertension, benign (CMS/HCC) - Primary BP controlled and monitor PRN. Lower extremity edema No edema and elevate legs PRN. COPD (chronic obstructive pulmonary disease) (CMS/HCC) Breathing improved after stopping smoking and continue trelegy. Use albuterol PRN. Tobacco user Doing well with chantix and stopped smoking. Continue medication for additional 8 weeks. Relevant Medications varenicline (Chantix) 1 MG tablet Obesity (BMI 30-39.9) Patient overweight and difficult time losing weight. Discussed proper diet and regular aerobic exercise. Recommend Weight Watchers and need to limit calories and smaller portions. Need to increase activity and regular aerobic exercise several days a week for 30 minutes at a time. Interested in adipex and warned of potential cardiac side effects. Script written for first month and will need to recheck weight in 1 month. OARRS reviewed. Continue medications as prescribed. Relevant Medications phentermine (Adipex-P) 37.5 MG tablet documented in this encounter [facility] Evaluation note 05-13-2022 Note Date & Type Note Facility 05-13-2022 Evaluation note Encounter Date Diagnosis Assessment Notes May, Bug bite, initial encounter (ICD-10 - W57.XXXA) Take medications as directed. Complete all doses. Unable to determine what type of insect cause bites. . Follow up with primary care provider if no improvement of symptoms with treatment plan [employer] Other Evaluation note Note Date & Type Note Facility Evaluation note Diagnosis Essential hypertension, benign (CMS/HCC)- Primary Essential hypertension, benign Chronic obstructive pulmonary disease, unspecified COPD type ([facility]) Tobacco user Tobacco use disorder Obesity (BMI 30-39.9) Lower extremity edema Edema documented in this encounter [facility] Evaluation note Note Date & Type Note Facility Evaluation note Diagnosis Ptosis of both eyelids- Primary Unspecified ptosis of eyelid documented in this encounter [facility] History general Narrative - Reported Note Date & Type Note Facility History general Narrative - Reported Type Medical History Esophageal reflux Medical History Hypertension Medical History Chronic bronchitis Surgical History tubal Surgical History appendectomy Hospitalization History see above Hospitalization History sob, low 02 levels 06/21 18 07/2017 [employer] Other Summary Purpose Family History No Family History Records FoundNo Family History Records FoundNo Family History Records FoundNo Family History Records FoundNo Family History Records Found Advance Directives No Advanced Directives Records FoundNo Advanced Directives Records FoundNo Advanced Directives Records FoundNo Advanced Directives Records FoundNo Advanced Directives Records Found Reason for Referral Specialty Diagnoses / Procedures Referred By Contac t Referred To Contact Diagnoses Obesity (BMI 30-39.9) Jignesh Saez MD [address] [place] [address] Referral ID Status Reason Start Date Expiration Date V isits Requested Visits Authorized [id number] Pending Review 1 1 Additional Source Comments INFORMATION SOURCE (unrecogn ized section and content) DATE CREATED AUTHOR 08/23/2017 [facility] DATE CREATED AUTHOR AUTHOR'S ORGANIZ ATION 07/18/2020 [facility] DATE CREATED AUTHOR AUTHOR'S ORGANIZ ATION 07/11/2022 [facility] pital DATE CREATED AUTHOR AUTHOR'S ORGANIZ ATION 07/13/2023 [facility] EPIC DATE CREATED AUTHOR AUTHOR'S ORGANIZ ATION 11/08/2023 [facility] REASON FOR VISIT (unrecogniz ed section and content) Reason Comments Follow-up 1 m Reason Comments Dermatochalasis Evaluation Care Teams (unrecognized sec tion and content) Barge Engineer Relationship Specialty Start Date End Date Jignesh Saez MD [address] [place] [phone] PCP - General Family Medicine 04/11/23 Barge Engineer Relationship Specialty Start Date End Date Jignesh Saez MD [address] [place] [phone] PCP - General Family Medicine 04/11/23 Barge Engineer Relationship Specialty Start Date End Date Jignesh Saez [address] [place] [phone] PCP - General Family Medicine 09/26/23 Source Comments (unrecognize d section and content) In the event this informatio n is protected by the Federal Confidentiality of Alcohol and Drug Abuse Patient Records regulations: The Federal rules restrict any use of the information to criminally investigate or prosecute any alcohol or drug abuse patient.[facility] FOR RECORDS PERTAINING TO PATIENTS WHO ARE OR HAVE BEEN ENROLLED IN A CHEMICAL DEPENDENCY/SUBSTANCEABUSE PROGRAM, SOME INFORMATION MAY BE OMITTED. This clinical summary was aggregated from multiple sources. Caution should be exercised in using it in the provision of clinical care. This summary normalizes information from multiple sources, and as a consequence, information in this document may materially change the coding, format and clinical context of patient data. In addition, data may be omitted in some cases. CLINICAL DECISIONS SHOULD BE BASED ON THE PRIMARY CLINICAL RECORDS. [employer] provides no warranty or guarantee of the accuracy or completeness of information in this document.
--- NOTE | 2023-11-14 19:33 | ED.UPPEXIN1 ---
HPI HPI - Extremity Injury (Upper) General Chief Complaint: Extremity Injury, Upper Stated Complaint: UE INJURY Time Seen by Provider: 11/14/23 18:52 Source: patient and family Mode of arrival: walk-in History of Present Illness HPI narrative: 68-year-old female presents for chief complaint of left wrist injury. Patient states she thought she was on the bottom step while carrying laundry down in her basement missed a step and landed on her left wrist. Obvious deformity is noted. Extremities neurovascularly intact. The injury occurred just prior to arrival. She denies any head or neck injury. Related Data Allergies Allergy/AdvReac Type Severity Reaction Status Date / Time No Known Drug Allergies Allergy Verified 11/14/23 18:56 Opioid HPI Opioid Management Most Recent Pain and Opioid Data: Last Pain Scale 5 11/14/23 19:58 Review of Systems ROS Narrative All Systems are negative except as noted/marked.All systems reviewed and otherwise negative Exam Narrative Exam Narrative: Nurses note and vital signs reviewed and patient is not hypoxic. General: The patient appears well and in no apparent distress. Patient is resting comfortably on cart. Skin: Warm, dry, no pallor noted. There is no rash noted. Head: Normocephalic, atraumatic Eye: Normal conjunctiva, no drainage, EOMI. PERRL Ears, Nose, Mouth, and Throat: oral mucosa is moist. Nares patent. Mouth without vesicles. Ear canals patent. Tm's without Erythema Musculoskeletal: Swelling left wrist, neurovascularly intact, good capillary fill distally, decreased range of motion due to left wrist,remainder of extremities are within normal limits Neurological: A&O x4, normal speech Psychiatric: Cooperative Constitutional Vital Signs, click to edit/add: Last Vital Signs Temp 98.3 F 11/14/23 18:52 Pulse 78 11/14/23 20:05 Resp 14 11/14/23 20:05 BP 141/86 11/14/23 18:52 Pulse Ox 95 11/14/23 20:05 O2 Del Method Room Air 11/14/23 20:05 Course Vital Signs Vital signs: Vital Signs Temperature 98.3 F 11/14/23 18:52 Pulse Rate 86 11/14/23 18:52 Respiratory Rate 18 11/14/23 18:52 Blood Pressure 141/86 11/14/23 18:52 Pulse Oximetry 96 11/14/23 18:52 Oxygen Delivery Method Room Air 11/14/23 18:52 Temperature 98.3 F 11/14/23 18:52 Pulse Rate 78 11/14/23 20:05 Respiratory Rate 14 11/14/23 20:05 Blood Pressure 141/86 11/14/23 18:52 Pulse Oximetry 95 11/14/23 20:05 Oxygen Delivery Method Room Air 11/14/23 20:05 MDM - Extremity Injury (Upper) MDM Narrative Medical decision making narrative: 68-year-old female presents for chief complaint of left wrist injury. Patient states she thought she was on the bottom step while carrying laundry down in her basement missed a step and landed on her left wrist. Obvious deformity is noted. Extremities neurovascularly intact. The injury occurred just prior to arrival. She denies any head or neck injury. Differential Diagnosis Differential diagnosis: Likely fracture of wrist Medical Records Attestation: I reviewed the patient's medical records. Medical records narrative: 68-year-old female presents for chief complaint of left wrist injury. Patient states she thought she was on the bottom step while carrying laundry down in her basement missed a step and landed on her left wrist. Obvious deformity is noted. Extremities neurovascularly intact. The injury occurred just prior to arrival. She denies any head or neck injury. X-ray shows a distal fracture of the wrist on the left. Volar splint was applied by myself. Extremities neurovascular intact before and after application. I did find the patient use rest ice elevation discharged home with 2 Percocet medicated here with Percocet. Sling was also provided by nursing staff. Patient will follow-up with Dr. Muller's office she will call in the morning for an appointment. Imaging Data wrist: Attestation: I have reviewed the pertinent imaging results. My impression: distal radius and ulnar fracture Radiologist's impression: ITS Impressions Wrist X-Ray 11/14/23 18:56 IMPRESSION: Dorsally angulated Colles' fracture. Electronically authenticated by: CATALINA LUCAS Date: 11/14/2023 19:36 Forearm X-Ray 11/14/23 18:57 IMPRESSION: Dorsally angulated Colles' fracture. Electronically authenticated by: CATALINA LUCAS Date: 11/14/2023 19:36 Discharge Plan Discharge Chief Complaint: Extremity Injury, Upper Clinical Impression: Fracture of wrist Patient Disposition: Home, Self-Care Time of Disposition Decision: 19:37 Condition: Good Print Language: Mongolian Instructions: Wrist Fracture in Adults (ED), P.R.I.C.E. Treatment (ED) Referrals: Jignesh Serna MD [Primary Care Provider] - 1 week Discharge Date/Time: 11/14/23 20:06
[2023-11-14] MEDS: OXYCODONE HCL/ACETAMINOPHEN 5MG/325MG 1 TAB PO (19:58)
[2023-11-14] MEDS: OXYCODONE HCL/ACETAMINOPHEN 5MG/325MG 2 TAB PO (20:00)
[2023-11-14 20:05] VITALS: PULSE 78; O2SAT 95
== END 2023-11-14 20:06 | disposition home or self-care (01) ==
PROVIDERS: Emergency Provider Internal Medicine; PCP Family Medicine
DX: S52.532A Colles' fracture of left radius, initial encounter for closed fracture (principal); W10.9XXA Fall (on) (from) unspecified stairs and steps, initial encounter
CPT/HCPCS: 29125; 73090; 73110; 99284

== ENCOUNTER 2023-11-20 13:23 | Outpatient (OUT) | payer OTHER, BC, SELFPAY ==
--- NOTE | 2023-11-20 13:28 | ECG_ITS ---
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
--- NOTE | 2023-11-20 14:03 | PM.PRESUREVA ---
History of Present Illness History of Present Illness Chief complaint: left distal radius fracture Narrative: Patient presents for preadmission testing. The patient states she sustained an arm injury on November 13 when she fell after missing a step into her basement and landed on her left wrist. She was evaluated in the emergency department and splinted for a radius fracture. The patient states she has much less pain now that she is splinted and she is taking Percocet to help with any additional discomfort. She denies numbness, tingling, or any other complaints. Review of Systems ROS Narrative REVIEW OF SYSTEMS: Negative except as stated in HPI, ten or more systems reviewed. Constitutional: No fever, chills, weakness ENT: No sore throat or epistaxis Cardiovascular: No edema, chest pain, palpitations, or activity intolerance Respiratory: Chronic dyspnea on exertion Gastrointestinal: No abdominal pain, constipation, diarrhea, or vomiting Genitourinary: No dysuria or hematuria Neurological: No numbness, tingling, weakness, or headache Psychiatric: No mood changes PFSH PFS Medical History (Updated 11/20/23 @ 13:47 by Gifty Uribe NP) Closed left radial fracture ?S52.92XA - Unspecified fracture of left forearm, initial encounter for closed fracture (ICD-10) Asthma ?J45.909 - Unspecified asthma, uncomplicated (ICD-10) GERD (gastroesophageal reflux disease) ?K21.9 - Gastro-esophageal reflux disease without esophagitis (ICD-10) Hypertension ?I10 - Essential (primary) hypertension (ICD-10) Retinal detachment ?H33.20 - Serous retinal detachment, unspecified eye (ICD-10) Surgical History (Updated 11/20/23 @ 13:47 by Gifty Uribe NP) S/P cataract extraction and insertion of intraocular lens ?Z98.49 - Cataract extraction status, unspecified eye (ICD-10) ?Z96.1 - Presence of intraocular lens (ICD-10) H/O eye surgery ?Z98.890 - Other specified postprocedural states (ICD-10) History of colonoscopy ?Z98.890 - Other specified postprocedural states (ICD-10) H/O unilateral salpingectomy ?Z90.79 - Acquired absence of other genital organ(s) (ICD-10) Family History (Updated 11/20/23 @ 13:43 by Gifty Uribe NP) Other Cancer Family history of diabetes mellitus Social History (Updated 11/20/23 @ 13:41 by Gifty Uribe NP) Within the past year, how often did you have a drink containing alcohol: 2-3 times a week Smoking status: Former smoker Non-prescribed substance use: denies use Highest level of school completed/degree received: high school graduate Meds Home Medications and Allergies Home Medications ?Medication ?Instructions ?Recorded ?Confirmed ?Type albuterol sulfate 90 mcg/actuation 2 inh inhalation Q6H PRN shortness 11/20/23 11/20/23 History aerosol inhaler of breath or wheezing amlodipine 10 mg tablet 10 mg PO DAILY 11/20/23 11/20/23 History cholecalciferol (vitamin D3) 50 50 mcg PO DAILY 11/20/23 11/20/23 History mcg (2,000 unit) tablet (Vitamin D3) fluticasone fur. 200 mcg-umeclid 1 inh inhalation Q24H 11/20/23 11/20/23 History 62.5 mcg-vilant 25 mcg inhalat.powder (Trelegy Ellipta) omeprazole 40 mg capsule,delayed 40 mg PO DAILY 11/20/23 11/20/23 History release oxycodone-acetaminophen 5 mg-325 1 tab PO Q6H PRN pain 11/20/23 11/20/23 History mg tablet Allergies Allergy/AdvReac Type Severity Reaction Status Date / Time No Known Drug Allergies Allergy Verified 11/20/23 13:37 Exam Narrative Exam Narrative: Constitutional: Awake, alert, comfortable, well-appearing, nontoxic, interactive, vital signs as charted Head: Normocephalic, atraumatic Neck: Supple, normal appearance, normal range of motion, no meningeal signs, no lymphadenopathy Respiratory: No respiratory distress, breath sounds clear Cardiovascular: Regular rate and rhythm, strong and regular heart tones Musculoskeletal: Splint intact to left forearm, good capillary refill, sensation intact, patient able to wiggle fingers Skin: No rashes or induration, no lesions, only visible skin inspected Neuro: No neurological deficits, normal sensation Psychiatric: Oriented ?3, normal affect Assessment and Plan Assessment and Plan (1) Closed left radial fracture: Plan ORIF left distal radius scheduled with Dr. Callaway November 25, 2023.
[2023-11-20 14:16] LABS: Basophils Percent Auto 0.5 % (0.2-2.0); Eosinophils Absolute Auto 0.3 10^3/uL (0.0-0.7); Eosinophils Percent Auto 3.5 % (0.9-7.0); Hematocrit 41.9 % (36.0-48.0); Immature Granulocytes Abs Auto 0.02 10^3/uL (0.00-0.03); Immature Granulocytes Pct Auto 0.2 % (0.0-0.5); Lymphocytes Percent Auto 36.2 % (20.5-60.0); Mean Corpuscular HGB Conc 33.4 g/dL (29.9-35.2); Mean Corpuscular Hemoglobin 31.8 pg (26.7-34.0); Mean Corpuscular Volume 95.2 fL (81.0-99.0); Mean Platelet Volume 10.2 fL (9.5-13.5); Monocytes Absolute Auto 0.7 10^3/uL (0.3-0.8); Monocytes Percent Auto 8.7 % (1.7-12.0); Neutrophils Absolute Auto 4.2 10^3/uL (1.4-6.5); Neutrophils Percent Auto 50.9 % (43.0-75.0); Platelet Count 311 10^3/uL (150-450); Red Cell Distribution Width 12.1 % (11.0-15.0); White Blood Count 8.2 10^3/uL (4.0-11.0)
[2023-11-20 14:22] LABS: Anion Gap 11.6; BUN Creatinine Ratio 20.8; Calcium 8.7 mg/dL (8.5-10.1); Carbon Dioxide 27.6 mmol/L (21.0-32.0); Chloride 108 mmol/L (98-107); Estimated GFR (African America >60 (>=60); Estimated GFR (Non-African Ame >60 (>=60); Glucose 114 mg/dL (74-106); Potassium 4.2 mmol/L (3.5-5.1); Sodium 143 mmol/L (136-145)
== END 2023-11-20 13:24 | disposition home or self-care (01) ==
LOC: PST 13:23
PROVIDERS: PCP Family Medicine; Visit Provider Orthopaedic Surgery
DX: Z01.810 Encounter for preprocedural cardiovascular examination (principal); Z01.812 Encounter for preprocedural laboratory examination; S52.532A Colles' fracture of left radius, initial encounter for closed fracture
CPT/HCPCS: 80048; 85025; 93005; G0463

== ENCOUNTER 2023-11-25 13:14 | Day surgery (SDC) | payer OTHER, BC, SELFPAY ==
[2023-11-20 13:59] VITALS: BP 121/78; PULSE 67; TEMP 36.4; O2SAT 96; BMI 29.0
[2023-11-25] VITALS (9 sets, daily range): BP systolic 123–161; BP diastolic 84–97; PULSE 57–78; TEMP 36.1–36.2; O2SAT 92–97; BMI 28.3
--- NOTE | 2023-11-25 | FL_ITS ---
[address] [address] Patient Name: RADHA ERNANDEZ MRN: [id number] date: 1955 Sex: F Assigned Patient Location: [facility] Current Patient Location: Accession/Order Number: [id number] Exam Date: 11/25/2023 14:45 Report Date: 11/27/2023 10:12 At the request of: ANUM BARRIENTOS Procedure: FL fluoroscopy <1hr NON-READ EXAM: FL fluoroscopy <1hr NON-READ HISTORY: TECHNIQUE: FINDINGS: Please see Operative Report. Electronically authenticated by: RADIOLOGIST NO Date: 11/27/2023 10:12
[2023-11-25] MEDS: LACTATED RINGER'S SOLUTION 1,000 ML 50 ML IV (13:51)
[2023-11-25 13:53] LABS: Basophils Percent Auto 0.3 % (0.2-2.0); Eosinophils Absolute Auto 0.3 10^3/uL (0.0-0.7); Eosinophils Percent Auto 3.2 % (0.9-7.0); Hematocrit 47.2 % (36.0-48.0); Hemoglobin 16.1 g/dL (12.0-16.0); Immature Granulocytes Abs Auto 0.02 10^3/uL (0.00-0.03); Immature Granulocytes Pct Auto 0.2 % (0.0-0.5); Lymphocytes Absolute Auto 3.9 10^3/uL (1.2-3.8); Lymphocytes Percent Auto 39.7 % (20.5-60.0); Mean Corpuscular HGB Conc 34.1 g/dL (29.9-35.2); Mean Corpuscular Hemoglobin 32.1 pg (26.7-34.0); Mean Corpuscular Volume 94.2 fL (81.0-99.0); Mean Platelet Volume 10.4 fL (9.5-13.5); Monocytes Absolute Auto 0.8 10^3/uL (0.3-0.8); Monocytes Percent Auto 8.2 % (1.7-12.0); Neutrophils Absolute Auto 4.7 10^3/uL (1.4-6.5); Neutrophils Percent Auto 48.4 % (43.0-75.0); Platelet Count 310 10^3/uL (150-450); Red Blood Count 5.01 10^6/uL (4.20-5.40); Red Cell Distribution Width 12.6 % (11.0-15.0); White Blood Count 9.7 10^3/uL (4.0-11.0)
[2023-11-25] MEDS: CEFAZOLIN SODIUM 2 GM/50 ML D5W PREMIX IV (14:17)
--- NOTE | 2023-11-25 14:27 | P.ORPRC_ITS ---
Procedure Note Date of procedure: 11/25/23 Pre-op diagnosis: Left distal radius fracture Post-op diagnosis: same as pre-op Procedure: Procedure: Open reduction internal fixation left distal radius fracture, 3 part extra- articular Consent: The risks, benefits, potential complications and outcomes of the proposed treatment(s) were discussed at length with the patient and family members present. They understood and have had all of their questions answered to their satisfaction and have elected to proceed. Findings: Reduced distal radius fracture with appropriate implant placement and lengths Detailed Description of Procedure: After informed consent was obtained the patient brought to the operating room where general anesthetic was administered. Preoperatively regional block was placed. A well-padded proximal arm tourniquet was placed on the right arm was prepped and draped in usual sterile fashion. The arm was elevated, exsanguinated, and the tourniquet was inflated to 250 mmHg. A 6 cm incision made overlying the flexor carpi radialis tendon overlying the distal radius. Blunt dissection was carried down through soft tissue. The flexor carpi radialis tendon was retracted ulnarly along with the flexor pollicis longus muscle and tendon. Pronator quadratus was incised in an L- shaped fashion off of the bone. Distal radius fracture was identified at this point and found to be extra-articular and comminuted. Using a combination of tr action and manipulation and reduction was performed and appropriate reduction was confirmed under x-ray. A Synthes by column distal radius plate was then placed and provisionally held into place with K wires. This was adjusted until the appropriate position was achieved under multiple fluoroscopy views. The plate was then first fixed with a 2.7 bicortical nonlocking screw in the oblong hole in the shaft. Holding the distal fragments reduced a total of 5 unicortical 2.4 mm locking screws were placed at the distal fragments followed by an additional 2 screws placed in the shaft in a bicortical locking fashion. Final x-rays in multiple planes revealed a reduced distal radius fracture with appropriate implant placement and lengths. Wound was irrigated. Pronator quadratus was repaired with an 0 Vicryl suture. Skin was closed with observable suture in layers. Well-padded dressing was placed followed by a fiberglass volar splint. Turning was deflated. Patient was awakened and brought to the recovery room in stable condition. There are no intraoperative or immediate postoperative complications. Anesthesia: regional and General-LMA Surgeon: Javier Callaway Estimated blood loss (mL): 5 Pathology: none sent Condition: stable Disposition: PACU
--- NOTE | 2023-11-25 15:48 | PC.NURSE ---
1401 Time out was performed after patient was consented for nerve block. Patient positioned and monitors and O2 applied. Bedside ultrasound used to locate nerves. Patient medicated per Sridhar MONTAÑO. Block started 1407 and ended at 1410. Patient tolerated well and remained on monitor and O2 until taken to OR.
== END 2023-11-25 16:44 | disposition home or self-care (01) ==
PROVIDERS: Anesthesiology; PCP Family Medicine; Visit Provider Orthopaedic Surgery
PROC: (CPT 1830; principal; 2023-11-25 14:40)
DX: S52.532A Colles' fracture of left radius, initial encounter for closed fracture (principal); W10.8XXA Fall (on) (from) other stairs and steps, initial encounter; Z87.891 Personal history of nicotine dependence; I10 Essential (primary) hypertension; K21.9 Gastro-esophageal reflux disease without esophagitis
CPT/HCPCS: 25607; 36415; 64417; 76000; 85025; C1713; J0690; J1885; J2250; J2405; J2704; J3010

== ENCOUNTER 2023-12-09 07:59 | Outpatient (OUT) | payer OTHER, BC, SELFPAY ==
--- NOTE | 2023-12-09 | XR_ITS ---
The [address] [address] Patient Name: RADHA ERNANDEZ MRN: [id number] date: 1955 Sex: F Assigned Patient Location: Current Patient Location: OT Accession/Order Number: [id number] Exam Date: 12/09/2023 08:14 Report Date: 12/09/2023 14:27 At the request of: ANUM BARRIENTOS Procedure: XR wrist LT min 3V PROCEDURE: XR wrist LT min 3V COMPARISON: 11/14/2023 HISTORY: LEFT WRIST PAIN FINDINGS: BONES:Interval open reduction internal fixation of the distal radius fracture utilizing a plate and screws. Stable ulnar styloid process fracture with partial bony bridging. SOFT TISSUES:Negative. No visible soft tissue swelling. EFFUSION:None visible. OTHER: Negative. XR/XR wrist LT min 3V IMPRESSION: Healing distal radius and ulna fractures with internal fixation of the radius Electronically authenticated by: AZAR STUART Date: 12/09/2023 14:27
--- OUTSIDE RECORDS SUMMARY | 2023-12-09 08:05 | XMS_ITS | CCD ---
Author Organization [facility] Care Team Providers Care Drafter Chief Design Name Role Phone PHYSICIAN, DEFAULT Unavailable Unavailable PHYSICIAN, DEFAULT Unavailable Unavailable PROVIDER, UNKNOWN Attending Unavailable PROVIDER, UNKNOWN Admitting Unavailable Rivka Reyez Unavailable DR JIGNESH SAEZ Primary Care Unavailable SAMSA ., TYRON Admitting Unavailable SAMSA ., TYRON Attending Unavailable NADJA, DR JIGNESH Zhou Consulting Unavailable NADJA, DR JIGNESH Zhou Attending Unavailable NADJA, DR JIGNESH Zhou Admitting Unavailable NADJA, DR JIGNESH Zhou Primary Care Unavailable Jignesh Saez MD Primary Care Provider JIGNESH SAEZ Attending Unavailable NADJA, JIGNESH Attending Unavailable NADJA, JIGNESH Attending Unavailable NADJA, JIGNESH Attending Unavailable Jignesh Saez Primary Care Provider [phone] BRIEN WESTBROOK Referring Unavailab le JIGNESH SAEZ Primary Care Unavailable GIDEON RUELAS Attending Unavailable Medications Current Medications Medication Drug Class(es) Dates Sig (Normalized) Sig (Original) [id number] 200 actuat albuterol 0.09 mg/actuat metered dose [...] / neomycin 3.5 mg/ml / polymyxin b [id number] unt/ml ophthalmic suspension (1 source) Aminoglycoside Antibacterial, Polymyxin-class Antibacterial, Corticosteroid Start: 10-03-2016 take 2 drop(s) into the eye(s) three times daily Maxitrol [id number] 2 drops into affected eye Ophthalmic Three [...] 04-24-2022 Chronic Other aftercare (1 source) Other usp (current) drug therapy; Translations: [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 Brigette Peñaloza Basophils/100 WBC (Bld) 0.7 % Normal 0.2-2.0 [facility] Comment on above: Performed By: #### C BC #### [facility] [address] [address] [address] Brigette Peñaloza EO # 0.3 103/ul Normal 0.0-0.7 [facility] Comment on above: Performed By: #### C BC #### [facility] [address] [place] [address] Dr. Brigette Peñaloza Eosinophils/100 WBC (Bld) 4.9 % Normal 0.9-7.0 [facility] Comment on above: Performed By: #### C BC #### [facility] [address] [place] [address] Dr. Brigette ePñaloza Erythrocyte distribution width (RBC) [Ratio] 12.7 % Normal 11.0-15.0 [facility] Comment on above: Performed By: #### C BC #### [facility] [address] [place] [address] Dr. Brigette Peñaloza Hematocrit (Bld) [Volume fraction] 48.0 % Normal 36.0-48.0 [facility] Comment on above: Performed By: #### C BC #### [facility] [address] [place] [address] Dr. Brigette Peñaloza Hemoglobin (Bld) [Mass/Vol] 16.1 g/dL Critically high 12.0-16.0 [facility] Comment on above: Performed By: #### C BC #### [facility] [address] [place] [address] Dr. Brigette Peñaloza IG # 0.02 10e3/ul Normal 0.00-0.03 [facility] Comment on above: Performed By: #### C BC #### [facility] [address] [address] [address] Brigette Peñaloza IG % 0.3 % Normal 0.0-0.5 [facility] Comment on above: Performed By: #### C BC #### [facility] [address] [place] [address] Dr. Brigette Peñaloza LYMPH # 2.7 103/ul Normal 1.2-3.8 [facility] Comment on above: Performed By: #### C BC #### [facility] [address] [place] [address] Dr. Brigette Peñaloza Lymphocytes/100 WBC (Bld) 39.2 % Normal 20.5-60.0 [facility] Comment on above: Performed By: #### C BC #### [facility] [address] [place] [address] Dr. Brigette Peñaloza MANUAL DIFF REQ NO Normal [facility] Comment on above: Performed By: #### C BC #### [facility] [address] [place] [address] Dr. Brigette Peñaloza MCH (RBC) [Entitic mass] 30.3 pg Normal 26.7-34.0 [facility] Comment on above: Performed By: #### C BC #### [facility] [address] [place] [address] Dr. Brigette Peñaloza MCHC (RBC) [Mass/Vol] 33.5 g/dL Normal 29.9-35.2 [facility] Comment on above: Performed By: #### C BC #### [facility] [address] [place] [address] Dr. Brigette Peñaloza MCV (RBC) [Entitic vol] 90.4 fL Normal 81.0-99.0 [facility] Comment on above: Performed By: #### C BC #### [facility] [address] [place] [address] Dr. Brigette Peñaloza MONO # 0.7 103/ul Normal 0.3-0.8 [facility] Comment on above: Performed By: #### C BC #### [facility] [address] [place] [address] Dr. Brigette Peñaloza Monocytes/100 WBC (Bld) 9.9 % Normal 1.7-12.0 [facility] Comment on above: Performed By: #### C BC #### [facility] [address] [place] [address] Dr. Brigette Peñaloza NEUT # 3.1 103/ul Normal 1.4-6.5 [facility] Comment on above: Performed By: #### C BC #### [facility] [address] [place] [address] Dr. Brigette Peñaloza Neutrophils/100 WBC (Bld) 45.0 % Normal 43.0-75.0 [facility] Comment on above: Performed By: #### C BC #### [facility] [address] [place] [address] Dr. Brigette Peñaloza Platelet mean volume (Bld) [Entitic vol] 10.2 fL Normal 9.5-13.5 [facility] Comment on above: Performed By: #### C BC #### [facility] [address] [place] [address] Dr. Brigette Peñaloza PLT 283 103/ul Normal 150-450 [facility] Comment on above: Performed By: #### C BC #### [facility] [address] [place] [address] Dr. Brigette Peñaloza RBC 5.31 106/ul Normal 4.20-5.40 [facility] Comment on above: Performed By: #### C BC #### [facility] [address] [place] [address] Dr. Brigette Peñaloza WBC 7.0 103/ul Normal 4.0-11.0 [facility] Comment on above: Performed By: #### C BC #### [facility] [address] [place] [address] Dr. Brigette Peñaloza GLYCOHEMOGLOBIN A1Con 2022 ADA RECOMMENDATION SEE BELOW Normal [facility] Comment on above: Result Comment: ADA RECOMMENDED LIMIT 4.0 - 6.0 ADA THERAPEUTIC TARGET < 7.0 ACTION SUGGESTED > 7.0 Performed By: #### A 1C #### [facility] [address] [address] [address] Brigette Peñaloza Glucose [Mass/Vol] 117 mg/dL Normal [facility] Comment on above: Performed By: #### A 1C #### [facility] [address] [address] [address] Brigette Peñaloza HbA1c (Bld) [Mass fraction] 5.7 % Normal 4.5-6.2 [facility] Comment on above: Performed By: #### A 1C #### [facility] [address] [address] [address] Brigette Peñaloza LIPID PROFILEon 04-24-2022 CHOL-HDL RATIO NORM SEE BELOW Normal [facility] Comment on above: Result Comment: 3.3 - 4.4 LOW RISK 4.4 - 7.1 AVERAGE RISK 7.1 - 11.0 MODERATE RISK >11.0 HIGH RISK Performed By: #### L IPID, TSH, LIVER, BMP #### [facility] [address] [address] [address] Brigette Peñaloza Cholesterol [Mass/Vol] 187 mg/dL Normal <=200 [facility] Comment on above: Performed By: #### L IPID, TSH, LIVER, BMP #### [facility] [address] [address] [address] Brigette Peñaloza Cholesterol in HDL [Mass/Vol] 54 mg/dL Normal 40-60 [facility] Comment on above: Performed By: #### L IPID, TSH, LIVER, BMP #### [facility] [address] [address] [address] Brigette Peñaloza Cholesterol in LDL [Mass/Vol] 105.6 mg/dL Normal [facility] Comment on above: Performed By: #### L IPID, TSH, LIVER, BMP #### [facility] [address] [address] [address] Brigette Peñaloza Cholesterol.total/Cho lesterol in HDL [Mass ratio] 3.5 {ratio} Normal [facility] Comment on above: Performed By: #### L IPID, TSH, LIVER, BMP #### [facility] [address] [address] [address] Brigette Peñaloza HDL NORMAL > or = 60 mg/dl - LOW CARDIOVASCULAR RISK <40 mg/dl - HIGH CARDIOVASCULAR RISK Normal [facility] Comment on above: Performed By: #### L IPID, TSH, LIVER, BMP #### [facility] [address] [address] [address] Brigette Peñaloza LDL CALC NORMAL SEE BELOW Normal [facility] Comment on above: Result Comment: <100 mg/dl OPTIMAL 100 - 129 mg/dl NEAR OR ABOVE OPTIMAL 130 - 159 mg/dl BORDERLINE HIGH 160 - 189 mg/dl HIGH >190 mg/dl VERY HIGH Performed By: #### L IPID, TSH, LIVER, BMP #### [facility] [address] [place] [address] Dr. Brigette Peñaloza Triglyceride [Mass/Vol] 137 mg/dL Normal <=150 [facility] Comment on above: Performed By: #### L IPID, TSH, LIVER, BMP #### [facility] [address] [address] [address] Brigette Peñaloza VLDL CALC 27.4 mg/dL Normal [facility] Comment on above: Performed By: #### L IPID, TSH, LIVER, BMP #### [facility] [address] [place] [address] Dr. Brigette Peñaloza LIVER PROFILEon 04-24-2022 Albumin [Mass/Vol] 3.6 g/dL Normal 3.4-5.0 [facility] Comment on above: Performed By: #### L IPID, TSH, LIVER, BMP #### [facility] [address] [place] [address] Dr. Brigette Peñaloza Albumin/Globulin [Mass ratio] 1.0 {ratio} Normal [facility] Comment on above: Performed By: #### L IPID, TSH, LIVER, BMP #### [facility] [address] [place] [address] Dr. Brigette Peñaloza ALP [Catalytic activity/Vol] 97 U/L Normal 46-116 [facility] Comment on above: Performed By: #### L IPID, TSH, LIVER, BMP #### [facility] [address] [address] [address] Brigette Peñaloza ALT [Catalytic activity/Vol] 41 U/L Normal 14-59 [facility] Comment on above: Performed By: #### L IPID, TSH, LIVER, BMP #### [facility] [address] [address] [address] Brigette Peñaloza AST [Catalytic activity/Vol] 24 U/L Normal 15-37 [facility] Comment on above: Performed By: #### L IPID, TSH, LIVER, BMP #### [facility] [address] [address] [address] Brigette Peñaloza BILI, CONJUGATED 0.1 mg/dL Normal 0.0-0.2 [facility] Comment on above: Performed By: #### L IPID, TSH, LIVER, BMP #### [facility] [address] [place] [address] Dr. Brigette Peñaloza Bilirubin [Mass/Vol] 0.3 mg/dL Normal 0.2-1.0 [facility] Comment on above: Performed By: #### L IPID, TSH, LIVER, BMP #### [facility] [address] [address] [address] Brigette Peñaloza Globulin (S) [Mass/Vol] 3.5 g/dL Normal [facility] Comment on above: Performed By: #### L IPID, TSH, LIVER, BMP #### [facility] [address] [place] [address] Dr. Brigette Peñaloza Protein [Mass/Vol] 7.1 g/dL Normal 6.4-8.2 [facility] Comment on above: Performed By: #### L IPID, TSH, LIVER, BMP #### [facility] [address] [address] [address] Brigette Peñaloza PROF CHEM 8 (BAS METB)on Anion gap [Moles/Vol] 8.7 mmol/L Normal [facility] Comment on above: Performed By: #### L IPID, TSH, LIVER, BMP #### [facility] [address] [place] [address] Dr. Brigette Peñaloza Calcium [Mass/Vol] 9.1 mg/dL Normal 8.5-10.1 [facility] Comment on above: Performed By: #### L IPID, TSH, LIVER, BMP #### [facility] [address] [address] [address] Brigette Peñaloza Chloride [Moles/Vol] 106 mmol/L Normal 98-107 [facility] Comment on above: Performed By: #### L IPID, TSH, LIVER, BMP #### [facility] [address] [address] [address] Brigette Peñaloza CO2 [Moles/Vol] 29.7 mmol/L Normal 21.0-32.0 [facility] Comment on above: Performed By: #### L IPID, TSH, LIVER, BMP #### [facility] [address] [place] [address] Dr. Brigette Peñaloza Creatinine [Mass/Vol] 0.81 mg/dL Normal 0.55-1.02 [facility] Comment on above: Performed By: #### L IPID, TSH, LIVER, BMP #### [facility] [address] [place] [address] Dr. Brigette Peñaloza EGFR-AF MONEGASQUE >60 Normal >=60 [facility] Comment on above: Performed By: #### L IPID, TSH, LIVER, BMP #### [facility] [address] [place] [address] Dr. Brigette Peñaloza EGFR-NON AF MONEGASQUE >60 Normal >=60 [facility] Comment on above: Performed By: #### L IPID, TSH, LIVER, BMP #### [facility] [address] [address] [address] Brigette Peñaloza Glucose [Mass/Vol] 114 mg/dL Critically high 74-106 [facility] Comment on above: Performed By: #### L IPID, TSH, LIVER, BMP #### [facility] [address] [address] [address] Brigette Peñaloza Potassium [Moles/Vol] 4.4 mmol/L Normal 3.5-5.1 [facility] Comment on above: Performed By: #### L IPID, TSH, LIVER, BMP #### [facility] [address] [place] [address] Dr. Brigette Peñaloza Sodium [Moles/Vol] 140 mmol/L Normal 136-145 [facility] Comment on above: Performed By: #### L IPID, TSH, LIVER, BMP #### [facility] [address] [place] [address] Dr. Brigette Peñaloza Urea nitrogen [Mass/Vol] 9.0 mg/dL Normal 7.0-18.0 [facility] Comment on above: Performed By: #### L IPID, TSH, LIVER, BMP #### [facility] [address] [place] [address] Dr. Brigette Peñaloza Urea nitrogen/Creatinine [Mass ratio] 11.1 mg/mg Normal [facility] Comment on above: Performed By: #### L IPID, TSH, LIVER, BMP #### [facility] [address] [place] [address] Dr. Brigette Peñaloza TSHon 04-24-2022 TSH 1.598 uIU/mL Normal 0.358-3.740 [facility] Comment on above: Performed By: #### L IPID, TSH, LIVER, BMP #### [facility] [address] [place] [address] Dr. Brigette Peñaloza VITAMIN D 25 OHon 04-24-2022 VIT D 25-OH 50.4 ng/mL Normal [facility] Comment on above: Performed By: #### V ITAD #### [facility] [address] [place] [address] Dr. Brigette Peñaloza VIT D RANGES SEE BELOW Normal [facility] Comment on above: Result Comment: <20 ng/mL Vit D deficient 20 - <30 ng/mL Vit D insufficient 30 - 100 ng/mL Vit D sufficient >100 ng/mL Potential Toxicity Performed By: #### V ITAD #### [facility] [address] [place] [address] Dr. Brigette Peñaloza Vital Signs Date Time Vital Sign Value Performing Clinician Facility 04-11-2023 13:13-0500 Body height 167.6 cm Jignesh Saez MD Work Phone: [facility] 04-11-2023 13:13-0500 Body mass index (BMI) [Ratio] 29.7 kg/m2 Jignesh Saez MD Work Phone: [facility] 04-11-2023 13:13-0500 Body temperature 97.3 [degF] Jignesh Saez MD Work Phone: [facility] 04-11-2023 13:13-0500 Body weight 83.46 kg Jignesh Saez MD Work Phone: [facility] 04-11-2023 13:13-0500 Diastolic blood pressure 70 mm[Hg] Jignesh Saez MD Work Phone: [facility] 04-11-2023 13:13-0500 Heart rate 80 /min Jignesh Saez MD Work Phone: [facility] 04-11-2023 13:13-0500 SaO2% (BldA) [Mass fraction] 95 % Jignesh Saez MD Work Phone: [facility] 04-11-2023 13:13-0500 Systolic blood pressure 130 mm[Hg] Jignesh Saez MD Work Phone: [facility] 05-13-2022 15:30-0400 Body height 165.74 cm Rivka Reyez Other [employer] Other 05-13-2022 15:30-0400 Body mass index (BMI) [Ratio] 30.45 kg/m2 Rivka Reyez Other [employer] Other 05-13-2022 15:30-0400 Body temperature 98.9 [degF] Rivka Reyez Other [employer] Other 05-13-2022 15:30-0400 Body weight 83.64 kg Rivka Reyez Other [employer] Other 05-13-2022 15:30-0400 Diastolic blood pressure 69 mm[Hg] Rivka Reyez Other [employer] Other 05-13-2022 15:30-0400 SaO2% (BldA) [Mass fraction] 93 % Rivka Reyez Other [employer] Other 05-13-2022 15:30-0400 Systolic blood pressure 116 mm[Hg] Rivka Reyez Other [employer] Other Encounters Encounter Date Encounter Type Care Provider Facility Start: 10-09-2023 End: 10-09-2023 ambulatory BRIEN WESTBROOK Facility:[facility] Start: 10-09-2023 End: 10-09-2023 Office outpatient [...] 05-13-2022 End: 05-13-2022 ambulatory Rivka Dereje Other [employer] Other Start: 05-13-2022 Office outpatient ne w 20 minutes Rivka Reyez [facility] Start: 04-24-2022 End: 04-25-[address] JIGNESH SAEZ Facility:[facility] Start: 09-27-2021 End: 09-27-[address] JIGNESH SAEZ Facility:[facility] Start: 07-17-2020 End: 07-18-2020 ambulatory UNKNOWN PROVIDER Facility:[facility] Start: 04-19-2017 End: 04-20-2017 Ambulatory DEFAULT PHYSICIAN Facility:[facility] Procedures Date Procedure Procedure Detail Performing Clinician Start: 10-09-2023 End: 10-09-2023 Xtrnl ocular photog w/i&r docmt medical progre Gideon Ruelas MD Work Phone: Start: 02-28-2023 Mammography Jignesh nowak MD Work Phone: Start: 10-09-2018 Colonoscopy Jignesh nowak MD Work Phone: Plan of Treatment Date Care Activity Detail Author Start: 10-09-2028 Screening for malign ant neoplasm of colon [facility] Start: 02-29-2024 Screening for malign ant neoplasm of breast Mammogram [facility] Start: 11-03-2023 Influenza vaccination Influenza Vacc ine (#1) [facility] Start: 05-07-2023 End: 05-07-2023 Patient encounter procedure 05/07/2023 9:15 AM EST Office Visit [facility] [address] [place] [id number] Jignesh Saez MD [address] [place] [id number] [facility] Start: 03-04-2023 Advance Directive Discussion Advance Directive Discussion [facility] Start: 11-02-2022 Covid-19 Vaccine ( season) Covid-19 Vaccine ( season) [facility] Start: 11-02-2022 Influenza vaccination Influenza Vacc ine (#1) [facility] Start: 05-05-2019 Pneumococcal Vaccine : 65+ (1 of 1 - PCV) Pneumococcal Vaccine: 65+ (1 of 1 - PCV) [facility] Start: 05-05-2019 Screening for osteoporosis Bone Density Screening [facility] Start: 2014 RSV Vaccine (1 - 1-d ose 60+ series) RSV Vaccine (1 - 1-dose 60+ series) [facility] Start: 2004 Shingrix Vaccine (1 of 2) Shingrix V accine (1 of 2) [facility] Start: 05-05-1999 Diabetes Screening Diabetes Screenin g [facility] Start: 05-05-1999 Lipid panel Lipid Screening [facility] Start: 05-05-1999 Screening for malign ant neoplasm of colon [facility] Start: 1994 Screening for malign ant neoplasm of breast Mammogram Screening [facility] Start: 1973 Urine microalbumin profile DTaP,Tdap,Td Vaccine (1 - Tdap) [facility] Start: 1972 Anxiety Screening Anxiety Screening [facility] Start: 1972 Depression Screening Depression Scre ening [facility] Start: 1972 Hepatitis C screening Hepatitis C Sc miladisning [facility] Start: 1960 Pneumococcal Vaccine : 65+ Years (1 - PCV) Pneumococcal Vaccine: 65+ Years (1 - PCV) [facility] Start: 1954 Screening for malign ant neoplasm of colon [facility] Payers Date Payer Category Payer Medicare [id number] 2019 Unknown 1959 [facility] [id number] 1960 Medicare [id number] 1955 Unknown [id number] 1954 Unknown [id number] 2.16.84 [id number] 1954 Unknown [id number] 2.16.84 [id number] 1954 Unknown [id number] [id number] [id number] 1954 Unknown [id number] 2.16.84 [id number] 1954 Unknown [id number] 2.16.84 [id number] 1954 Unknown [id number] Social History Date Type Detail Facility Unknown if ever smoked [employer] Other Start: 02-19-2023 End: 10-09-2023 Sex Assigned At [employer] Other Start: 02-19-2023 End: 10-09-2023 Tobacco smoking status [facility] Ex-smoker [facility] End: 06-09-2017 History of tobacco use Current smoker [facility] End: 06-09-2017 History of tobacco use Cigarette Smoker [facility] Start: 02-19-2023 End: 10-09-2023 Cigarettes smoked current (pack per day) - Reported 0.3 [facility] Start: 02-19-2023 End: 10-09-2023 Tobacco use and exposure Smokeless tobacco non-user [facility] Start: 1955 Sex Assigned At Not on file [facility] Start: 10-09-2023 Alcohol intake Current drinke r of alcohol (finding) [facility] National Score (1-100), lower number is lower risk 80 [facility] Start: 10-09-2023 Alcohol Comment occasional [facility] Clinical Note 10-09-2023 Note Date & Type Note Facility 10-09-2023 Note Date of Procedure 10/09/2023. Notes Bilateral upper eyelid ptosis with brow ptosis, dermatochalasis, skin on lashes temporally. [facility] Clinical Note 10-09-2023 Note Date & Type Note Facility 10-09-2023 Note Date of Procedure 10/09/2023. [employer] Right Eye Difference between Bishop visual [...] pressure 10-15 min documented in this encounter [facility] Progress note 10-09-2023 Note Date & Type Note Facility 10-09-2023 Note HNO ID: [id number] Author: GIDEON RUELAS MD Service: ? Author Type: Fellow Type: Progress Notes Filed: 11/06/2023 15:39 Note Text: History: Pepper Lacy is a 68 year old woman with history of droopy eyelids, now bothersome for the past year. She was referred by her senior quality methods specialist Dr. Westbrook for dermatochalasis. She is most [...] the above, please contact me directly at [phone]. Gideon Ruelas MD [facility] History of Present illness Narrative 10-09-2023 Gideon Ruelas MD - 10/09/2023 11:17 AM EDT Note Date & Type Note Facility 10-09-2023 History of Presen t illness Narrative History: Pepper Lacy is a 68 year old woman with history of droopy eyelids, now bothersome for the past year. She was referred by her senior quality methods specialist Dr. Westbrook for dermatochalasis. She is most [...] is unpredictable; may need multiple surgeries Risk oyel of dryness of eye/asymmetry Xavier's phenomenon can [...] 1 year prn. documented in this encounter [facility] History of Present illness Narrative 04-11-2023 Jignesh [...] Associated Problem(s): COPD (chronic obstructive pulmonary disease) ([facility]) Breathing improved after stopping smoking and continue [...] 37.5 MG tablet documented in this encounter [facility] Evaluation note 05-13-2022 Note Date & Type Note Facility 05-13-2022 Evaluation note Encounter Date Diagnosis Assessment Notes May, Bug bite, initial encounter (ICD-10 - W57.XXXA) Take medications as directed. Complete all doses. Unable to determine what type of insect cause bites. . Follow up with primary care provider if no improvement of symptoms with treatment plan [employer] Other Evaluation note Note Date & Type Note Facility Evaluation note Diagnosis Essential hypertension, benign (CMS/HCC)- Primary Essential hypertension, benign Chronic obstructive pulmonary disease, unspecified COPD type (CMS/[facility]) Tobacco user Tobacco use disorder Obesity (BMI 30-39.9) Lower extremity edema Edema documented in this encounter [facility] Evaluation note Note Date [...] sob, low 02 levels 06/21 18 07/2017 [employer] Other Summary Purpose Family History No Family [...] 30-39.9) Jignesh Saez MD [address] [place] [address] Referral ID Status Reason Start Date Expiration Date V isits Requested Visits Authorized [id number] Pending Review 1 1 Additional Source Comments INFORMATION SOURCE (unrecogn ized section and content) DATE CREATED AUTHOR 08/23/2017 [facility] DATE CREATED AUTHOR AUTHOR'S ORGANIZ ATION 07/18/2020 [email or web address] [facility] DATE CREATED AUTHOR AUTHOR'S ORGANIZ ATION 07/11/2022 [facility] DATE CREATED AUTHOR AUTHOR'S ORGANIZ ATION 07/13/[address] [facility] EPIC DATE CREATED AUTHOR AUTHOR'S ORGANIZ ATION 11/08/2023 [facility] REASON FOR VISIT (unrecogniz ed section and content) Reason Comments Follow-up 1 m Reason Comments Dermatochalasis Evaluation Care Teams (unrecognized sec tion and content) Drafter Chief Design Relationship Specialty Start Date End Date Jignesh Saez MD [address] [place] [address] PCP - General Family Medicine 04/11/23 Dra[employer] Chief [employer] Relationship Specialty Start Date End Date Jignesh Saez MD [address] [place] [address] PCP - General Family Medicine 04/11/23 Drafter Chief Design Relationship Specialty Start Date End Date Jignesh Saez [address] [place] [address] PCP - General Family Medicine 09/26/23 Source Comments (unrecognize d section and content) In the event this informatio n is protected by the Federal Confidentiality of Alcohol and Drug Abuse Patient Records regulations: The Federal rules restrict any use of the information to criminally investigate or prosecute any alcohol or drug abuse patient.[facility] FOR RECORDS PERTAINING TO PATIENTS WHO ARE [...] BE BASED ON THE PRIMARY CLINICAL RECORDS. [employer] provides no warranty or guarantee of the accuracy or completeness of information in this document.
== END 2023-12-09 08:00 | disposition home or self-care (01) ==
LOC: EC 07:59
PROVIDERS: PCP Family Medicine; Visit Provider Orthopaedic Surgery
DX: S52.532D Colles' fracture of left radius, subsequent encounter for closed fracture with routine healing (principal); S52.572D Other intraarticular fracture of lower end of left radius, subsequent encounter for closed fracture with routine healing
CPT/HCPCS: 73110

== ENCOUNTER 2023-12-16 07:58 | Outpatient (RCR) | payer OTHER, BC, SELFPAY | END 2023-12-17 16:53 | disposition home or self-care (01) | LOC: OT 07:58 | PROVIDERS: PCP Family Medicine; Visit Provider Orthopaedic Surgery | DX: S52.532D Colles' fracture of left radius, subsequent encounter for closed fracture with routine healing (principal); S52.572D Other intraarticular fracture of lower end of left radius, subsequent encounter for closed fracture with routine healing | CPT/HCPCS: 97110; 97165 ==

== ENCOUNTER 2024-01-06 07:52 | Outpatient (OUT) | payer OTHER, BC, SELFPAY ==
--- NOTE | 2024-01-06 07:55 | XR_ITS ---
The [address] [address] Patient Name: RADHA ERNANDEZ MRN: [id number] date: 1955 Sex: F Assigned Patient Location: [facility] Current Patient Location: Accession/Order Number: [id number] Exam Date: 01/06/2024 08:05 Report Date: 01/07/2024 11:11 At the request of: MANUELITO SAEZ Procedure: XR DEXA axial skeleton EXAMINATION: XR DEXA axial skeleton, 01/06/2024 8:05 AM EST HISTORY: Post menopausal COMPARISON: None. TECHNIQUE: Dual-energy X-ray absorptiometry (DEXA) bone density study performed for the axial skeleton. FINDINGS: Bone mineral density AP spine L1-L4 measures 0.884 g/sq cm for T score -2.5. Osteoporosis. Bone mineral density of the femurs measures 0.879 g/sq cm. T score -1.0. Normal XR/XR DEXA axial skeleton IMPRESSION: Osteoporosis, high fracture risk 10 year fracture is not reported because T score at or below -2.5 Pharmacologic treatment recommendations * No uniform recommendation applies to all patients. Management plans must be individualized. * Consider initiating pharmacologic treatment in postmenopausal women and men >= 50 years of age who have the following: Primary fracture prevention: * T-score <= - 2.5 at the femoral neck, total hip, lumbar spine, 33% radius (some uncertainty with existing data) by DXA. * Low bone mass (osteopenia: T-score between - 1.0 and - 2.5) at the femoral neck or total hip by DXA with a 10-year hip fracture risk >= 3% or a 10-year major osteoporosis-related fracture risk >= 20% (i.e., clinical vertebral, hip, forearm, or proximal humerus) based on the [place]-adapted FRAXregistered model. Secondary fracture prevention: * Fracture of the hip or vertebra regardless of BMD [4, 5]. * Fracture of proximal humerus, pelvis, or distal forearm in persons with low bone mass (osteopenia: T-score between - 1.0 and - 2.5). The decision to treat should be individualized in persons with a fracture of the proximal humerus, pelvis, or distal forearm who do not have osteopenia or low BMD [12, 13]. Kady MS, Mckenna SL, Jean Marie KL, Deshawn EM, Alisa KG, Taylor AJ, Zoran ES. The clinician's guide to prevention and treatment of osteoporosis. Osteoporos Int. 2021;33(10):3572-2051. doi: 10.1007/n03670-364-64576-r. Epub 2021Jun 29. Erratum in: Osteoporos Int. 2021Sep 28;: PMID: [id number]; PMCID: [id number]. Electronically authenticated by: AZAR STUART Date: 01/07/2024 11:11
--- OUTSIDE RECORDS SUMMARY | 2024-01-06 07:56 | XMS_ITS | CCD ---
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 Name Role Phone PHYSICIAN, DEFAULT Unavailable Unavailable PHYSICIAN, DEFAULT Unavailable Unavailable PROVIDER, UNKNOWN Attending Unavailable PROVIDER, UNKNOWN Admitting Unavailable Rivka Reyez Unavailable NADJA, DR JIGNESH Zhou Primary Care Unavailable SAMSA ., TYRON Admitting Unavailable SAMSA ., TYRON Attending Unavailable NADJA, DR JIGNESH Zhou Consulting Unavailable NADJA, DR JIGNESH Zhou Attending Unavailable NADJA, DR JIGNESH Zhou Admitting Unavailable NADJA, DR JIGNESH Zhou Primary Care Unavailable Jignesh Saez MD Primary Care Provider [phone] Jignesh Saez Primary Care Provider BRIEN WESTBROOK Referring Unavailab le NADJA, JIGNESH Zhou Primary Care Unavailable GIDEON RUELAS Attending Unavailable NADEREKai, JIGNESH Attending Unavailable NADERER, JIGNESH Attending Unavailable NADEREKai, JIGNESH Attending Unavailable NADEREKai, JIGNESH Attending Unavailable NADEREKai, JIGNESH Attending Unavailable Medications Current Medications Medication Drug Class(es) Dates Sig (Normalized) Sig (Original) [id number] 200 actuat albuterol 0.09 mg/actuat metered dose inhaler (14 sources) beta2-Adrenergic Agonist Start: 02-18-2023 take 2 puff(s) by inhalation every four hours as needed albuterol HFA 90 mcg/act inhaler Indications: Chronic obstructive pulmonary disease with (acute) exacerbation (CMS/HCC) , Obstructive chronic bronchitis with exacerbation (CMS/HCC) INHALE 2 PUFFS EVERY 4 HOURS NEEDED 18 g 2 02/18/2023 Active Start: 02-18-2023 take 2 puff(s) by in halation every four hours as needed albuterol HFA (PROVENTIL HFA, VENTOLIN HFA) 90 mcg/actuation inhaler Inhale 2 Puffs as instructed every 4 hours as needed. 0 02/18/2023 Active albuterol (2.5 M G/3ML) 0.083% nebulizer solution Take 2.5 mg by nebulization every 4 (four) hours if needed for wheezing Active Albuterol Sulfat e (2.5 MG/ 3 ML) Active amLODIPine 10 mg oral tablet (8 sources) Dihydropyridine Calcium Channel Bree Start: 10-07-2023 take 1 tablet by mouth once daily amLODIPine (Norvasc) 10 MG tablet Indications: Essential (primary) hypertension (CMS/HCC) , Benign essential hypertension (CMS/HCC) TAKE 1 TABLET BY MOUTH EVERY DAY 90 tablet 3 10/07/2023 Active amlodipine besyl ate (AMLODIPINE ORAL) Take by mouth. 0 Active take 1 tablet by mouth in the mo rning amLODIPine (Norvasc) 10 MG tablet Take 10 mg by mouth in the morning. 0 Active amLODIPine Besyl ate Active Arnuity Ellipta (1 source) Arnuity Ellipta Active cholecalciferol 0.05 mg oral tablet (7 sources) Vitamin D Start: 021 take 1 tablet by mouth once daily cholecalciferol (Vitamin D-3) 50 MCG (1999) tablet Indications: Vitamin D deficiency, unspecified , Vitamin D deficiency TAKE 1 TABLET BY MOUTH EVERY DAY 30 tablet 5 09/12/2023 Active doxycycline monohydrate 100 mg oral capsule (1 source) Tetracycline-class Drug Start: 023 take 1 capsule by mouth every twelve hours Doxycycline Monohydrate 100 MG 1 capsule Orally every 12 hrs for 7 days May, Active fluticasone/umeclidin/ vilanter (TRELEGY ELLIPTA INHALATION) (1 source) fluticasone/umec lidin/ vilanter (TRELEGY ELLIPTA INHALATION) Inhale as instructed. 0 Active mupirocin 0.02 mg/mg topical ointment (1 source) RNA Synthetase Inhibitor Antibacterial Start: 023 Mupirocin 2 % 1 application to affected area Externally 2 times a day for 7 days May, Active omeprazole 40 mg delayed release oral capsule (7 sources) Proton Pump Inhibitor Start: 024 take 1 capsule by mouth once daily omeprazole (PriLOSEC) [address] capsule Indications: Gastro-esophageal reflux disease without esophagitis , Esophageal reflux TAKE 1 CAPSULE BY MOUTH EVERY DAY 90 capsule 3 11/25/2023 Active take 1 capsule by mouth before m ealtime omeprazole (PriLOSEC) [address] capsule Take [...] Active Trelegy Ellipta 200-62.5-25 MCG/ACT aerosol powder (6 sources) Start: 02-19-2023 take 1 puff(s) by inhalation in the morning Trelegy Ellipta 200-62.5-25 MCG/ACT aerosol powder Inhale 1 puff in the morning. 02/19/2023 Active Start: 02-19-2023 take 1 puff(s) by in halation in the morning Trelegy Ellipta 200-62.5-25 MCG/ACT aerosol powder Inhale 1 puff in the morning. 0 02/19/2023 Active varenicline 1 mg oral tablet (11 sources) Partial Cholinergic Nicotinic Agonist Start: 10-22-2023 take 1 tablet by mouth in the morning varenicline (Chantix) 1 MG tablet Indications: Tobacco user Take 1 tablet (1 mg) by mouth in the morning and 1 tablet (1 mg) before bedtime. Take with full glass of water.. 60 tablet 1 10/22/2023 Active Start: 04-11-2023 take 1 tablet by [...] Active Start: 02-19-2023 End: 04-11-2023 Varenicline Tartrate, Osbaldoe r, (Chantix Starting Month ) 0.5 MG X [...] / neomycin 3.5 mg/ml / polymyxin b [id number] unt/ml ophthalmic suspension (1 source) Aminoglycoside Antibacterial, Polymyxin-class Antibacterial, Corticosteroid Start: 10-03-2016 take 2 drop(s) into the eye(s) three times daily Maxitrol 3.5-84476-9.1 2 drops into affected eye Ophthalmic Three [...] Inhalation every 4-6 hrs Feb, Not-Taking Problems Active Problems Problem Classification Problem Date Documented Date Episodic/Chronic Chronic obstructive pulmonary disease and bronchiectasis (9 sources) Acute exacerbation of chronic obstructive airways disease; Translations: [Chronic obstructive pulmonary disease with (acute) exacerbation] Onset: 02-19-2023 02-19-2023 Chronic Diseases of white blood cells (6 sources) 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; Translations: [Other eosinophilia] Onset: 02-19-2023 02-19-2023 Chronic Disorders of lipid metabolism (7 sources) Hyperlipidemia, unspecified; Translations: [Dyslipidemia] Onset: 04-27-2022 02-19-2023 Chronic E Codes: Natural/environment (1 source) Bitten or stung by nonvenomous insect and other nonvenomous arthropods, initial encounter Episodic Esophageal disorders (6 sources) Gastroesophageal reflux disease; Translations: [Gastro-esophageal reflux disease without esophagitis] Onset: 02-19-2023 02-19-2023 Chronic Essential hypertension (11 sources) Essential (primary) hypertension; Translations: [Benign essential hypertension] Onset: 04-27-2022 02-19-2023 Chronic Fracture of upper limb (4 sources) Closed Colles' fracture; Translations: [Colles' fracture of left radius, subsequent encounter for closed fracture with routine healing] Onset: 12-10-2023 12-10-2023 Episodic Nutritional deficiencies (10 sources) Vitamin D deficiency, unspecified; Translations: [Vitamin D deficiency] Onset: 04-24-2022 Chronic Other aftercare (1 source) 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; Translations: [OTH MANAGER PATIENT CURRENT DRUG THERAPY] Onset: 04-27-2022 Episodic Other [...] Onset: 04-11-2023 04-11-2023 Chronic Residual codes; unclassified (6 sources) Hypersomnia; Translations: [Hypersomnia, unspecified] Onset: 02-19-2023 02-19-2023 Chronic Residual codes; unclassified (4 sources) Postmenopausal state; Translations: [Asymptomatic menopausal state] Onset: 12-10-2023 12-10-2023 Episodic Past or Other Problems Problem Classification Problem Date Documented Da te Episodic/Chronic Diabetes mellitus without complication (7 sources) Prediabetes; Translations: [Prediabetes] Onset: 04-27-2022 02-19-2023 Episodic Other nutritional; endocrine; and metabolic disorders (3 sources) Body mass index 25-29 - overweight; Translations: [Overweight] Onset: 04-11-2023 07-11-2023 Episodic Residual codes; unclassified (8 sources) Edema of lower extremity; Translations: [Localized edema] Onset: 02-19-2023 02-19-2023 Episodic Residual codes; unclassified (8 sources) Tobacco user; Translations: [Tobacco use] Onset: 02-19-2023 02-19-2023 Episodic Results Test Name Value Interpretation Reference Range Facility EXTERNAL PHOTOS OU (BOTH EYE S)on 10-09-2023 [facility] Radiology Study observation (narrative) [facility] PTOSIS VISUAL FIELD OU (BOTH EYES)on 10-09-2023 [facility] Radiology Study observation (narrative) [facility] CBC AUTO DIFFon 04-24-2022 BASO # 0.1 103/ul Normal 0.0-0.1 [facility] Comment on above: Performed By: #### C BC #### [facility] Laboratory [address] [place] [address] Dr. Brigette Peñaloza Basophils/100 WBC (Bld) 0.7 % Normal 0.2-2.0 [facility] Comment on above: Performed By: #### C BC #### [facility] Laboratory [address] [place] [address] Dr. Brigette Peñaloza EO # 0.3 103/ul Normal 0.0-0.7 [facility] Comment on above: Performed By: #### C BC #### [facility] Laboratory [address] [place] [address] Dr. Brigette Peñaloza Eosinophils/100 WBC (Bld) 4.9 % Normal 0.9-7.0 [facility] Comment on above: Performed By: #### C BC #### [facility] Laboratory [address] [place] [address] Dr. Brigette Peñaloza Erythrocyte distribution width (RBC) [Ratio] 12.7 % Normal 11.0-15.0 [facility] Comment on above: Performed By: #### C BC #### [facility] Laboratory [address] [place] [address] Dr. Brigette Peñaloza Hematocrit (Bld) [Volume fraction] 48.0 % Normal 36.0-48.0 [facility] Comment on above: Performed By: #### C BC #### [facility] [address] [place] [address] Dr. Brigette Peñaloza Hemoglobin (Bld) [Mass/Vol] 16.1 g/dL Critically high 12.0-16.0 [facility] Comment on above: Performed By: #### C BC #### [facility] [address] [place] [address] Dr. Brigette Peñaloza IG # 0.02 10e3/ul Normal 0.00-0.03 [facility] Comment on above: Performed By: #### C BC #### [facility] Laboratory [address] [place] [address] Dr. Brigette Peñaloza IG % 0.3 % Normal 0.0-0.5 [facility] Comment on above: Performed By: #### C BC #### [facility] [address] [place] [address] Dr. Brigette Peñaloza LYMPH # 2.7 103/ul Normal 1.2-3.8 [facility] Comment on above: Performed By: #### C BC #### [facility] [address] [place] [address] Dr. Brigette Peñaloza Lymphocytes/100 WBC (Bld) 39.2 % Normal 20.5-60.0 [facility] Comment on above: Performed By: #### C BC #### [facility] [address] [place] [address] Dr. Brigette Peñaloza MANUAL DIFF REQ NO Normal [facility] Comment on above: Performed By: #### C BC #### [facility] [address] [place] [address] Dr. Brigette Peñaloza MCH (RBC) [Entitic mass] 30.3 pg Normal 26.7-34.0 [facility] Comment on above: Performed By: #### C BC #### [facility] [address] [place] [address] Dr. Brigette Peñaloza MCHC (RBC) [Mass/Vol] 33.5 g/dL Normal 29.9-35.2 [facility] Comment on above: Performed By: #### C BC #### [facility] [address] [place] [address] Dr. Brigette Peñaloza MCV (RBC) [Entitic vol] 90.4 fL Normal 81.0-99.0 [facility] Comment on above: Performed By: #### C BC #### [facility] [address] [place] [address] Dr. Brigette Peñaloza MONO # 0.7 103/ul Normal 0.3-0.8 [facility] Comment on above: Performed By: #### C BC #### [facility] Laboratory [address] [place] [address] Dr. Brigette Peñaloza Monocytes/100 WBC (Bld) 9.9 % Normal 1.7-12.0 [facility] Comment on above: Performed By: #### C BC #### [facility] [address] [place] [address] Dr. Brigette Peñaloza NEUT # 3.1 103/ul Normal 1.4-6.5 [facility] Comment on above: Performed By: #### C BC #### [facility] [address] [place] [address] Dr. Brigette Peñaloza Neutrophils/100 WBC (Bld) 45.0 % Normal 43.0-75.0 [facility] Comment on above: Performed By: #### C BC #### [facility] [address] [place] [address] Dr. Brigette Peñaloza Platelet mean volume (Bld) [Entitic vol] 10.2 fL Normal 9.5-13.5 [facility] Comment on above: Performed By: #### C BC #### [facility] [address] [place] [address] Dr. Brigette Peñaloza PLT 283 103/ul Normal 150-450 [facility] Comment on above: Performed By: #### C BC #### [facility] [address] [place] [address] Dr. Brigette Peñaloza RBC 5.31 106/ul Normal 4.20-5.40 [facility] Comment on above: Performed By: #### C BC #### [facility] [address] [place] [address] Dr. Brigette Peñaloza WBC 7.0 103/ul Normal 4.0-11.0 [facility] Comment on above: Performed By: #### C BC #### [facility] [address] [place] [address] Dr. Brigette Peñaloza GLYCOHEMOGLOBIN A1Con 2022 ADA RECOMMENDATION SEE BELOW Normal [facility] Comment on above: Result Comment: ADA RECOMMENDED LIMIT 4.0 - 6.0 ADA THERAPEUTIC TARGET < 7.0 ACTION SUGGESTED > 7.0 Performed By: #### A 1C #### [facility] [address] [place] [address] Dr. Brigette Peñaloza Glucose [Mass/Vol] 117 mg/dL Normal [facility] Comment on above: Performed By: #### A 1C #### [facility] [address] [place] [address] Dr. Brigette Peñaloza HbA1c (Bld) [Mass fraction] 5.7 % Normal 4.5-6.2 [facility] Comment on above: Performed By: #### A 1C #### [facility] [address] [address] [address] Brigette Peñaloza LIPID PROFILEon 04-24-2022 CHOL-HDL RATIO NORM SEE BELOW Normal [facility] Comment on above: Result Comment: 3.3 - 4.4 LOW RISK 4.4 - 7.1 AVERAGE RISK 7.1 - 11.0 MODERATE RISK >11.0 HIGH RISK Performed By: #### L IPID, TSH, LIVER, BMP #### [facility] [address] [address] [address] Brigette Peñaloza Cholesterol [Mass/Vol] 187 mg/dL Normal <=200 [facility] Comment on above: Performed By: #### L IPID, TSH, LIVER, BMP #### [facility] [address] [address] [address] Brigette Peñaloza Cholesterol in HDL [Mass/Vol] 54 mg/dL Normal 40-60 [facility] Comment on above: Performed By: #### L IPID, TSH, LIVER, BMP #### [facility] [address] [address] [address] Brigette Peñaloza Cholesterol in LDL [Mass/Vol] 105.6 mg/dL Normal [facility] Comment on above: Performed By: #### L IPID, TSH, LIVER, BMP #### [facility] [address] [address] [address] Brigette Peñaloza Cholesterol.total/Cho lesterol in HDL [Mass ratio] 3.5 {ratio} Normal [facility] Comment on above: Performed By: #### L IPID, TSH, LIVER, BMP #### [facility] [address] [address] [address] Brigette Peñaloza HDL NORMAL > or = 60 mg/dl - LOW CARDIOVASCULAR RISK <40 mg/dl - HIGH CARDIOVASCULAR RISK Normal [facility] Comment on above: Performed By: #### L IPID, TSH, LIVER, BMP #### [facility] [address] [address] [address] Brigette Peñaloza LDL CALC NORMAL SEE BELOW Normal [facility] Comment on above: Result Comment: <100 mg/dl OPTIMAL 100 - 129 mg/dl NEAR OR ABOVE OPTIMAL 130 - 159 mg/dl BORDERLINE HIGH 160 - 189 mg/dl HIGH >190 mg/dl VERY HIGH Performed By: #### L IPID, TSH, LIVER, BMP #### [facility] [address] [address] [address] Brigette Peñaloza Triglyceride [Mass/Vol] 137 mg/dL Normal <=150 [facility] Comment on above: Performed By: #### L IPID, TSH, LIVER, BMP #### [facility] [address] [address] [address] Brigette Peñaloza VLDL CALC 27.4 mg/dL Normal [facility] Comment on above: Performed By: #### L IPID, TSH, LIVER, BMP #### [facility] [address] [place] [address] Dr. Brigette Peñaloza LIVER PROFILEon 04-24-2022 Albumin [Mass/Vol] 3.6 g/dL Normal 3.4-5.0 [facility] Comment on above: Performed By: #### L IPID, TSH, LIVER, BMP #### [facility] [address] [address] [address] Brigette Peñaloza Albumin/Globulin [Mass ratio] 1.0 {ratio} Normal [facility] Comment on above: Performed By: #### L IPID, TSH, LIVER, BMP #### [facility] [address] [address] [address] Brigette Peñaloza ALP [Catalytic activity/Vol] 97 U/L Normal 46-116 [facility] Comment on above: Performed By: #### L IPID, TSH, LIVER, BMP #### [facility] [address] [address] [address] Brigette Peñaloza ALT [Catalytic activity/Vol] 41 U/L Normal 14-59 [facility] Comment on above: Performed By: #### L IPID, TSH, LIVER, BMP #### [facility] [address] [address] [address] Brigette Peñaloza AST [Catalytic activity/Vol] 24 U/L Normal 15-37 [facility] Comment on above: Performed By: #### L IPID, TSH, LIVER, BMP #### [facility] [address] [place] [address] Dr. Brigette Peñaloza BILI, CONJUGATED 0.1 mg/dL Normal 0.0-0.2 [facility] Comment on above: Performed By: #### L IPID, TSH, LIVER, BMP #### [facility] [address] [place] [address] Dr. Brigette Peñaloza Bilirubin [Mass/Vol] 0.3 mg/dL Normal 0.2-1.0 [facility] Comment on above: Performed By: #### L IPID, TSH, LIVER, BMP #### [facility] [address] [place] [address] Dr. Brigette Peñaloza Globulin (S) [Mass/Vol] 3.5 g/dL Normal [facility] Comment on above: Performed By: #### L IPID, TSH, LIVER, BMP #### [facility] [address] [place] [address] Dr. Brigette Peañloza Protein [Mass/Vol] 7.1 g/dL Normal 6.4-8.2 [facility] Comment on above: Performed By: #### L IPID, TSH, LIVER, BMP #### [facility] [address] [place] [address] Dr. Brigette Peñaloza PROF CHEM 8 (BAS METB)on Anion gap [Moles/Vol] 8.7 mmol/L Normal [facility] Comment on above: Performed By: #### L IPID, TSH, LIVER, BMP #### [facility] [address] [place] [address] Dr. Brigette Peñaloza Calcium [Mass/Vol] 9.1 mg/dL Normal 8.5-10.1 [facility] Comment on above: Performed By: #### L IPID, TSH, LIVER, BMP #### [facility] [address] [place] [address] Dr. Brigette Peñaloza Chloride [Moles/Vol] 106 mmol/L Normal 98-107 [facility] Comment on above: Performed By: #### L IPID, TSH, LIVER, BMP #### [facility] [address] [address] [address] Brigette Peñaloza CO2 [Moles/Vol] 29.7 mmol/L Normal 21.0-32.0 [facility] Comment on above: Performed By: #### L IPID, TSH, LIVER, BMP #### [facility] [address] [address] [address] Brigette Peñaloza Creatinine [Mass/Vol] 0.81 mg/dL Normal 0.55-1.02 [facility] Comment on above: Performed By: #### L IPID, TSH, LIVER, BMP #### [facility] [address] [address] [address] Brigette Peñaloza EGFR-AF ARGENTINE >60 Normal >=60 [facility] Comment on above: Performed By: #### L IPID, TSH, LIVER, BMP #### [facility] [address] [address] [address] Brigette Peñaloza EGFR-NON AF ARGENTINE >60 Normal >=60 [facility] Comment on above: Performed By: #### L IPID, TSH, LIVER, BMP #### [facility] [address] [address] [address] Brigette Peñaloza Glucose [Mass/Vol] 114 mg/dL Critically high 74-106 [facility] Comment on above: Performed By: #### L IPID, TSH, LIVER, BMP #### [facility] [address] [address] [address] Brigette Peñaloza Potassium [Moles/Vol] 4.4 mmol/L Normal 3.5-5.1 [facility] Comment on above: Performed By: #### L IPID, TSH, LIVER, BMP #### [facility] [address] [address] [address] Brigette Peñaloza Sodium [Moles/Vol] 140 mmol/L Normal 136-145 [facility] Comment on above: Performed By: #### L IPID, TSH, LIVER, BMP #### [facility] [address] [address] [address] Brigette Peñaloza Urea nitrogen [Mass/Vol] 9.0 mg/dL Normal 7.0-18.0 [facility] Comment on above: Performed By: #### L IPID, TSH, LIVER, BMP #### [facility] [address] [place] [address] Dr. Brigette Peñaloza Urea nitrogen/Creatinine [Mass ratio] 11.1 mg/mg Normal [facility] Comment on above: Performed By: #### L IPID, TSH, LIVER, BMP #### [facility] [address] [place] [address] Dr. Brigette Peñaloza TSHon 04-24-2022 TSH 1.598 uIU/mL Normal 0.358-3.740 [facility] Comment on above: Performed By: #### L IPID, TSH, LIVER, BMP #### [facility] [facility] [address] [place] [address] Dr. Brigette Peñaloza VITAMIN D 25 OHon 04-24-2022 VIT D 25-OH 50.4 ng/mL Normal [facility] Comment on above: Performed By: #### V ITAD #### [facility] [address] [place] [address] Dr. Brigette Peñaloza VIT D RANGES SEE BELOW Normal [facility] Comment on above: Result Comment: <20 ng/mL Vit D deficient 20 - <30 ng/mL Vit D insufficient 30 - 100 ng/mL Vit D sufficient >100 ng/mL Potential Toxicity Performed By: #### V ITAD #### [facility] [address] [place] [address] Dr. Brigette Peñaloza Vital Signs Date Time Vital Sign Value Performing Clinician Facility 12-10-2023 14:040 Body height 167.6 cm Jignesh Saez MD Work Phone: [facility] 12-10-2023 14:06-0400 Body mass index (BMI) [Ratio] 28.08 kg/m2 Jignesh Saez MD Work Phone: [facility] 12-10-2023 14:06040 Body temperature 95.7 [degF] Jignesh Saez MD Work Phone: [facility] 12-10-2023 14:06-0400 Body weight 78.93 kg Jignesh Saez MD Work Phone: [facility] 12-10-2023 14:06-0400 Diastolic blood pressure 66 mm[Hg] Jignesh Saez MD Work Phone: [facility] 12-10-2023 14:06-0400 Heart rate 31 /min Jignesh Saez MD Work Phone: [facility] 12-10-2023 14:06-0400 Respiratory rate 22 /min Jignesh Saez MD Work Phone: [facility] 12-10-2023 14:06-0400 SaO2% (BldA) [Mass fraction] 93 % Jignesh Saez MD Work Phone: [facility] 12-10-2023 14:06-0400 Systolic blood pressure 110 mm[Hg] Jignesh Saez MD Work Phone: [facility] 04-11-2023 13:13-0500 Body height 167.6 cm Jignesh Saez MD Work Phone: [facility] 04-11-2023 13:13-0500 Body mass index (BMI) [Ratio] 29.7 kg/m2 Jignesh Saez MD Work Phone: [facility] 04-11-2023 13:13-0500 Body temperature 97.3 [degF] Jignesh Saez MD Work Phone: [facility] 04-11-2023 13:13-0500 Body weight 83.46 kg Jignesh Saez MD Work Phone: [facility] 04-11-2023 13:13-0500 Diastolic blood pressure 70 mm[Hg] Jignesh Saez MD Work Phone: [facility] 04-11-2023 13:13-0500 Heart rate 80 /min Jignesh Saez MD Work Phone: [facility] 04-11-2023 13:13-0500 SaO2% (BldA) [Mass fraction] 95 % Jignesh Saez MD Work Phone: [facility] 04-11-2023 13:13-0500 Systolic blood pressure 130 mm[Hg] Jignesh Saez MD Work Phone: [facility] 05-13-2022 15:30-0400 Body height 165.74 cm Rivka Reyez Other [employer] Other 05-13-2022 15:30-0400 Body mass index (BMI) [Ratio] 30.45 kg/m2 Rivka Reyez Other [employer] Other 05-13-2022 15:30-0400 Body temperature 98.9 [degF] Rivka Reyez Other [employer] Other 05-13-2022 15:30-0400 Body weight 83.64 kg Rivka Reyez Other [employer] Other 05-13-2022 15:30-0400 Diastolic blood pressure 69 mm[Hg] Rivka Reyez Other [employer] Other 05-13-2022 15:30-0400 SaO2% (BldA) [Mass fraction] 93 % Rivka Reyez Other [employer] Other 05-13-2022 15:30-0400 Systolic blood pressure 116 mm[Hg] Rivka Reyez Other [employer] Other Encounters Encounter Date Encounter Type Care Provider Facility Start: 12-10-2023 End: 12-10-2023 Bamboo flowsheet Jignesh Saez MD Work Phone: [facility] Start: 12-10-2023 End: 12-10-2023 Bamboo flowsheet Jignesh Saez MD Work Phone: [facility] Start: 12-10-2023 End: 12-10-2023 Office outpatient visit 15 minutes Jignesh Saez MD Work Phone: [facility] Comment on above: Closed 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); Essential hypertension, benign (CMS/HCC); Postmenopausal Start: 12-10-2023 End: 12-10-2023 ambulatory JIGNESH SAEZ Not Available Start: 10-09-2023 End: 10-09-2023 ambulatory BRIEN WESTBROOK Facility:[facility] Start: 10-09-2023 End: 10-09-2023 Office outpatient new 45 minutes Gideon Ruelas MD Work Phone: Ophthalmology Comment on above: Ptosis of both eyeli ds (Primary Dx) Start: 07-11-2023 End: 07-11-2023 ambulatory JIGNESH AMOSR Not Available Start: 05-07-2023 End: 05-07-2023 ambulatory JIGNESH ARCEOERER Not Available Start: 04-11-2023 Bamboo flowsheet Jignesh Saez MD Work Phone: [facility] Start: 04-11-2023 Bamboo flowsheet Jignesh Saez MD Work Phone: [facility] Start: 04-11-2023 End: 04-11-2023 ambulatory JIGNESH SAEZ Not Available Start: 04-11-2023 End: 04-11-2023 Office outpatient visit 25 minutes Jignesh Saez MD Work Phone: [facility] Comment on above: Essential hypertensi on, benign (CMS/HCC) (Primary Dx); Chronic obstructive pulmonary disease, unspecified COPD type (CMS/HCC); Tobacco user; Obesity (BMI 30-39.9); Lower extremity edema Start: 02-19-2023 End: 02-19-2023 ambulatory JIGNESH SAEZ Not Available Start: 05-13-2022 End: 05-13-2022 ambulatory Rivka Reyez Other [employer] Other Start: 05-13-2022 Office outpatient ne w 20 minutes Rivka Reyez [facility] Start: 04-24-2022 End: 04-25-[address] JIGNESH SAEZ Facility:[facility] Start: 09-27-2021 End: 09-27-[address] JIGNESH SAEZ Facility:[facility] Start: 07-17-2020 End: 07-18-2020 ambulatory UNKNOWN PROVIDER Facility:[facility] Start: 04-19-2017 End: 04-20-2017 Ambulatory DEFAULT PHYSICIAN Facility:[facility] Procedures Date Procedure Procedure Detail Performing Clinician Start: 10-09-2023 End: 10-09-2023 Xtrnl ocular photog w/i&r docmt medical progre Gideon Ruelas MD Work Phone: Start: 02-28-2023 Mammography Jignesh nowak MD Work Phone: Start: 10-09-2018 Colonoscopy Jignesh nowak MD Work Phone: Plan of Treatment Date Care Activity Detail Author Start: 10-09-2028 Screening for malign ant neoplasm of colon [facility] Start: 02-29-2024 Screening for malign ant neoplasm of breast Mammogram [facility] Start: 01-08-2024 End: 01-08-2024 Patient encounter procedure [facility] Start: 12-10-2023 End: 12-09-2024 DXA Skeletal system Views for bone density DEXA bone density Imaging Routine Postmenopausal Expected: 12/10/2023, Expires: 12/09/2024 [facility] Work Phone: Comment on above: Expected: 12/10/2023 , Expires: 12/09/2024 Start: 12-10-2023 End: 12-10-2023 Patient encounter procedure 12/10/2023 2:00 PM EDT Office Visit [facility] [address] [place] [phone] Jignesh Saez MD [address] [place] [phone] Arrived [facility] Comment on above: Arrived Start: 11-03-2023 Influenza vaccination Influenza Vacc ine (#1) [facility] Start: 05-07-2023 End: 05-07-2023 Patient encounter procedure 05/07/2023 9:15 AM EST Office Visit [facility] [address] [place] [phone] Jignesh Saez MD [address] [place] [phone] [facility] Start: 03-04-2023 Advance Directive Discussion Advance Directive Discussion [facility] Start: 11-02-2022 Covid-19 Vaccine ( season) Covid-19 Vaccine ( season) [facility] Start: 11-02-2022 Influenza vaccination Influenza Vacc ine (#1) [facility] Start: 05-05-2019 Pneumococcal Vaccine : 65+ (1 of 1 - PCV) Pneumococcal Vaccine: 65+ (1 of 1 - PCV) [facility] Start: 05-05-2019 Screening for osteoporosis Bone Density Screening [facility] Start: 2014 RSV Vaccine (1 - 1-d ose 60+ series) RSV Vaccine (1 - 1-dose 60+ series) [facility] Start: 2004 Shingrix Vaccine (1 of 2) Shingrix Vaccine (1 of 2) [facility] Start: 05-05-1999 Diabetes Screening Diabetes Screenin g [facility] Start: 05-05-1999 Lipid panel Lipid Screening [facility] Start: 05-05-1999 Screening for malign ant neoplasm of colon [facility] Start: 1994 Screening for malign ant neoplasm of breast Mammogram Screening [facility] Start: 1973 Urine microalbumin profile DTaP,Tdap,Td Vaccine (1 - Tdap) [facility] Start: 1972 Anxiety Screening Anxiety Screening [facility] Start: 1972 Depression Screening Depression Scre ening [facility] Start: 1972 Hepatitis C screening Hepatitis C Sc reening [facility] Start: 1960 Pneumococcal Vaccine : 65+ Years (1 - PCV) Pneumococcal Vaccine: 65+ Years (1 - PCV) [facility] Start: 1960 Pneumococcal Vaccine : 65+ Years (1 of 2 - PCV) Pneumococcal Vaccine: 65+ Years (1 of 2 - PCV) [facility] Start: 1954 Medicare Annual Wellness (AWV) Medicare Annual Wellness (AWV) [facility] Start: 1954 Screening for malign ant neoplasm of colon [facility] Payers Date Payer Category Payer Medicare [employer] MEDIC[employer] E WELL[employer] BY JO [id number] 2023-Present [address] [place] [address] [id number] 2023 Medicare [id number] 2019 Unknown 1959 [facility] [id number] 1959 Medicare [id number] 1954 Unknown [id number] 1954 Unknown [id number] 1954 Unknown [id number] 1954 Unknown [id number] 1259 1954 Unknown [id number] 1259 1954 Unknown [id number] 1259 1954 Unknown [id number] 1259 1954 Unknown [id number] [id number] Social History Date Type Detail Facility Unknown if ever smoked [employer] Other Start: 02-19-2023 End: 07-11-2023 Sex Assigned At [employer] [facility] [employer] Other Start: 02-19-2023 End: 10-09-2023 Tobacco smoking status NHIS Ex-smoker [facility] End: 06-09-2017 History of tobacco use Current smoker [facility] End: 06-09-2017 History of tobacco use Cigarette Smoker [facility] Start: 02-19-2023 End: 07-11-2023 Cigarettes smoked current (pack per day) - Reported 0.3 [facility] Start: 02-19-2023 End: 10-09-2023 Tobacco use and exposure Smokeless tobacco non-user [facility] Start: 1955 Sex Assigned At Not on file N [facility] Start: 10-09-2023 Alcohol intake Current drinke r of alcohol (finding) [facility] National Score (1-100), lower number is lower risk 80 [facility] Start: 10-09-2023 Alcohol Comment occasional [facility] Clinical Notes 05-13-2022 to 12-10-2023 Jignesh Saez MD - 12/10/2023 2:25 PM EDElina Saez MD - 12/10/2023 2:24 PM EDElina Saez MD - 12/10/2023 2:24 PM Lyndsey Saez MD - 12/10/2023 2:00 PM EDTPatient Instructions Note Date & Type Note Facility 12-10-2023 History of Present illness Narrative Associated Problem(s): Closed Colles' fracture of left radius with routine healing Doing well after surgery and follow with ortho. Associated Problem(s): Essential hypertension, benign (CMS/HCC) BP controlled and monitor PRN. Associated Problem(s): Postmenopausal Check dexa. Images from the original note were not included. Subjective Patient ID: Pepper Ernandez is a 68 y.o. female who presents for Follow-up (Broken wrist). ER follow up from 11/13 for left wrist fracture. Carrying basket down steps and missed last step. Fell to ground and caught self with left wrist. Severe pain in wrist and difficult to move. To ER and noted deformity. X-ray showed distal radial fracture and splinted. Followed with ortho and to OR for ORIF 11/24. Doing well after surgery. Mild pain and using tylenol. Seen yesterday and out of splint. Wearing brace and mild pain. Moving fingers and swelling improved. Never had DEXA scan. Checking BP PRN and typically controlled. BP normal today. Taking medication daily and tolerating without side effects. Review of Systems Respiratory: Negative for cough, [...] Addressed This Visit Essential hypertension, benign (CMS/HCC) BP controlled and monitor PRN. Closed Colles' fracture of left radius with routine healing - Primary Doing well after surgery and follow with ortho. Postmenopausal Check dexa. Relevant Orders DEXA bone density documented in this encounter [facility] 10-09-2023 Note Date of Procedure 10/09/2023. Notes Bilateral upper eyelid ptosis with brow ptosis, dermatochalasis, skin on lashes temporally. [facility] 10-09-2023 Note Date of Procedure 10/09/2023. Black Studies Professor Information Right Eye Difference between Bishop visual field results of lids tapped and untaped 15. Left Eye Difference between Bishop visual field results of lids tapped and untaped 15. Interpretation Right Eye Decreased superior visual field. Left Eye Decreased superior visual field. [facility] 10-09-2023 Instructions Gideon Ruelas MD - 10/09/2023 [...] pressure 10-15 min documented in this encounter [facility] 10-09-2023 Note HNO ID: [id number] Author: GIDEON RUELAS MD Service: ? Author Type: Fellow Type: Progress Notes Filed: 11/06/2023 15:39 Note Text: History: Pepper Ernandez is a 68 year old woman with history of droopy eyelids, now bothersome for the past year. She was referred by her skidder runner Dr. Westbrook for dermatochalasis. She is most [...] others. I have seen and examined Pepper Ernandez. I also have reviewed and agree with [...] the above, please contact me directly at [phone]. Gideon Ruelas MD [facility] 10-09-2023 History of Present illness Narrative History: Pepper Ernandez is a 68 year old woman with history of droopy eyelids, now bothersome for the past year. She was referred by her skidder runner Dr. Westbrook for dermatochalasis. She is most [...] 1 year prn. documented in this encounter [facility] 04-11-2023 History of Present illness Narrative Associated Problem(s): Obesity (BMI 30-39.9) [...] Associated Problem(s): COPD (chronic obstructive pulmonary disease) (CMS/HCC) Breathing improved after stopping smoking and continue trelegy. Use albuterol PRN. Subjective Patient ID: Pepper Ernandez is a 67 y.o. female who presents [...] 37.5 MG tablet documented in this encounter [facility] 05-13-2022 Evaluation note Encounter Date Diagnosis Assessment Notes May, Bug bite, initial encounter (ICD-10 - W57.XXXA) Take medications as directed. Complete all doses. Unable to determine what type of insect cause bites. . Follow up with primary care provider if no improvement of symptoms with treatment plan [facility] Other Evaluation note* Diagnosis Essential hypertension, benign (CMS/HCC)- Primary Essential hypertension, benign Chronic obstructive pulmonary disease, unspecified COPD type (CMS/HCC) Tobacco user Tobacco use disorder Obesity (BMI 30-39.9) Lower extremity edema Edema [facility] Ptosis of both eyelids- Primary Unspecified ptosis of eyelid [facility] Diagnosis Closed Colles' fracture of left radius with routine healing- Primary Essential hypertension, benign (CMS/HCC) Essential hypertension, benign Postmenopausal Asymptomatic postmenopausal status (age-related) (natural) [facility] - [facility]orted* Type Description Date Medical History Esophageal reflux Medical History Hypertension Medical History Chronic bronchitis Surgical History tubal Surgical History appendectomy Hospitalization History see above Hospitalization History sob, low 02 levels 06/21 18 07/2017 [facility] Other Summary Purpose Family History No Family History Records FoundNo Family History Records FoundNo Family History Records FoundNo Family History Records FoundNo Family History Records Found Advance Directives No Advanced Directives Records FoundNo Advanced Directives Records FoundNo Advanced Directives Records FoundNo Advanced Directives Records FoundNo Advanced Directives Records Found Reason for Referral Specialty Diagnoses / Procedures Referred By Renetta hackett Referred To Contact Diagnoses Obesity (BMI 30-39.9) Jignesh Saez MD [address] [place] [address] Referral ID Status Reason Start Date Expiration Date V isits Requested Visits Authorized [id number] Pending Review 1 1 Additional Source Comments INFORMATION SOURCE (unrecogn ized section and content) DATE CREATED AUTHOR 08/23/2017 [facility] DATE CREATED AUTHOR AUTHOR'S ORGANIZ ATION 07/18/2020 [employer] DATE CREATED AUTHOR AUTHOR'S ORGANIZ ATION 07/11/[address] [facility] DATE CREATED AUTHOR AUTHOR'S ORGANIZ ATION 11/08/2023 [facility] DATE CREATED AUTHOR AUTHOR'S ORGANIZ ATION 12/12/2023 [facility] EPIC REASON FOR VISIT (unrecogniz ed section and content) Reason Comments Follow-up 1 m Reason Comments Dermatochalasis Evaluation Reason Comments Follow-up Broken wrist Care Teams (unrecognized sec tion and content) Theatrical Dresser Relationship Specialty Start Date End Date Jignesh Saez MD [address] [place] [phone] PCP - General Family Medicine 04/11/23 Theatrical Dresser Relationship Specialty Start Date End Date Jignesh Saez MD [address] [place] [address] PCP - General Family Medicine 04/11/23 Theatrical Dresser Relationship Specialty Start Date End Date Jignesh Saez [address] [place] [phone] PCP - General Family Medicine 09/26/23 Theatrical Dresser Relationship Specialty Start Date End Date Jignesh Saez MD [address] [place] [address] PCP - General Family Medicine 04/11/23 Theatrical Dresser Relationship Specialty Start Date End Date Jignesh Saez MD [address] [place] [phone] PCP - General Family Medicine 04/11/23 Source Comments (unrecognize d section and content) In the event this informatio n is protected by the Federal Confidentiality of Alcohol and Drug Abuse Patient Records regulations: The Federal rules restrict any use of the information to criminally investigate or prosecute any alcohol or drug abuse patient.[facility] FOR RECORDS PERTAINING TO PATIENTS WHO ARE [...] BE BASED ON THE PRIMARY CLINICAL RECORDS. [facility]. provides no warranty or guarantee of the accuracy or completeness of information in this document.
== END 2024-01-06 07:53 | disposition home or self-care (01) ==
LOC: RAD 07:52
PROVIDERS: PCP Family Medicine; Visit Provider Family Medicine
DX: Z78.0 Asymptomatic menopausal state (principal); M81.0 Age-related osteoporosis without current pathological fracture
CPT/HCPCS: 77080

== ENCOUNTER 2024-01-06 08:25 | Outpatient (OUT) | payer OTHER, BC, SELFPAY ==
--- NOTE | 2024-01-06 | XR_ITS ---
The [address] [address] Patient Name: RADHA ERNANDEZ MRN: [id number] date: 1955 Sex: F Assigned Patient Location: Current Patient Location: Accession/Order Number: [id number] Exam Date: 01/06/2024 08:26 Report Date: 01/07/2024 10:18 At the request of: ANUM BARRIENTOS Procedure: XR wrist LT min 3V PROCEDURE: XR wrist LT min 3V COMPARISON: 12/09/2023 HISTORY: LEFT WRIST PAIN FINDINGS: BONES:Stable healing distal radius and ulna fractures with internal fixation of the radius. No new fracture or dislocation SOFT TISSUES:Negative. No visible soft tissue swelling. EFFUSION:None visible. OTHER: Negative. XR/XR wrist LT min 3V IMPRESSION: Stable healing distal radius and ulna fractures with internal fixation of the radius Electronically authenticated by: AZAR STUART Date: 01/07/2024 10:18
--- OUTSIDE RECORDS SUMMARY | 2024-01-06 08:44 | XMS_ITS | CCD ---
Author Organization [facility] Care Team Providers Care Alterations Expert Name Role Phone PHYSICIAN, DEFAULT Unavailable Unavailable [...] Unavailable Jignesh Saez MD Primary Care Provider Jignesh Saez Primary Care Provider BRIEN WESTBROOK Referring Unavailab le NADJA, JIGNESH Zhou Primary Care Unavailable GIDEON RUELAS Attending Unavailable NADEREKai, JIGNESH Attending Unavailable NADERER, JIGNESH Attending Unavailable NADEREKai, JIGNESH Attending Unavailable NADEREKai, JIGNESH Attending Unavailable NADEREKai, JIGNESH Attending Unavailable Medications Current Medications Medication Drug Class(es) Dates Sig (Normalized) Sig (Original) [id number] 200 actuat albuterol 0.09 mg/actuat metered dose [...] / neomycin 3.5 mg/ml / polymyxin b [id number] unt/ml ophthalmic suspension (1 source) Aminoglycoside Antibacterial, Polymyxin-class Antibacterial, Corticosteroid Start: 10-03-2016 take 2 drop(s) into the eye(s) three times daily Maxitrol [id number] 2 drops into affected eye Ophthalmic Three [...] 04-24-2022 Chronic Other aftercare (1 source) Other long term care administrator (current) drug therapy; Translations: [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 Brigette Peñaloza Basophils/100 WBC (Bld) 0.7 % Normal 0.2-2.0 [facility] Comment on above: Performed By: #### C BC #### [facility] [address] [place] [address] Dr. Brigette Peñaloza EO # 0.3 103/ul Normal 0.0-0.7 [facility] Comment on above: Performed By: #### C BC #### [facility] [address] [place] [address] Dr. Brigette Peñaloza Eosinophils/100 WBC (Bld) 4.9 % Normal 0.9-7.0 [facility] Comment on above: Performed By: #### C BC #### [facility] [address] [place] [address] Dr. Brigette Peñaloza Erythrocyte distribution width (RBC) [Ratio] 12.7 % Normal 11.0-15.0 [facility] Comment on above: Performed By: #### C BC #### [facility] [address] [place] [address] Dr. Brigette Peñaloza Hematocrit (Bld) [Volume fraction] 48.0 % Normal 36.0-48.0 [facility] Comment on above: Performed By: #### C BC #### [facility] [address] [place] [address] Dr. Brigette Peñaloza Hemoglobin (Bld) [Mass/Vol] 16.1 g/dL Critically high 12.0-16.0 [facility] Comment on above: Performed By: #### C BC #### [facility] [address] [place] [address] Dr. Brigette Peñaloza IG # 0.02 10e3/ul Normal 0.00-0.03 [facility] Comment on above: Performed By: #### C BC #### [facility] [address] [place] [address] Dr. Brigette Peñaloza IG % 0.3 % Normal 0.0-0.5 [facility] Comment on above: Performed By: #### C BC #### [facility] [address] [place] [address] Dr. Brigette Peñaloza LYMPH # 2.7 103/ul Normal 1.2-3.8 [facility] Comment on above: Performed By: #### C BC #### [facility] [address] [place] [address] Dr. Brigette Peñaloza Lymphocytes/100 WBC (Bld) 39.2 % Normal 20.5-60.0 [facility] Comment on above: Performed By: #### C BC #### [facility] [address] [place] [address] Dr. Brigette Peñaloza MANUAL DIFF REQ NO Normal [facility] Comment on above: Performed By: #### C BC #### [facility] [address] [place] [address] Dr. Brigette Peñaloza MCH (RBC) [Entitic mass] 30.3 pg Normal 26.7-34.0 [facility] Comment on above: Performed By: #### C BC #### [facility] [address] [place] [address] Dr. Brigette Peñaloza MCHC (RBC) [Mass/Vol] 33.5 g/dL Normal 29.9-35.2 [facility] Comment on above: Performed By: #### C BC #### [facility] [address] [place] [address] Dr. Brigette Peñaloza MCV (RBC) [Entitic vol] 90.4 fL Normal 81.0-99.0 [facility] Comment on above: Performed By: #### C BC #### [facility] [address] [place] [address] Dr. Brigette Peñaloza MONO # 0.7 103/ul Normal 0.3-0.8 [facility] Comment on above: Performed By: #### C BC #### [facility] [address] [place] [address] Dr. Brigette Peñaloza Monocytes/100 WBC (Bld) 9.9 % Normal 1.7-12.0 [facility] Comment on above: Performed By: #### C BC #### [facility] [address] [place] [address] Dr. Brigette Peñaloza NEUT # 3.1 103/ul Normal 1.4-6.5 [facility] Comment on above: Performed By: #### C BC #### [facility] [address] [place] [address] Dr. Brigette Peñaloza Neutrophils/100 WBC (Bld) 45.0 % Normal 43.0-75.0 [facility] Comment on above: Performed By: #### C BC #### [facility] [address] [place] [address] Dr. Brigette Peñaloza Platelet mean volume (Bld) [Entitic vol] 10.2 fL Normal 9.5-13.5 [facility] Comment on above: Performed By: #### C BC #### [facility] [address] [place] [address] Dr. Brigette Peñaloza PLT 283 103/ul Normal 150-450 [facility] Comment on above: Performed By: #### C BC #### [facility] [address] [place] [address] Dr. Brigette Peñaloza RBC 5.31 106/ul Normal 4.20-5.40 [facility] Comment on above: Performed By: #### C BC #### [facility] [address] [place] [address] Dr. Brigette Peñaloza WBC 7.0 103/ul Normal 4.0-11.0 [facility] Comment on above: Performed By: #### C BC #### [facility] [address] [place] [address] Dr. Brigette Peñaloza GLYCOHEMOGLOBIN A1Con 2022 ADA RECOMMENDATION SEE BELOW Normal [facility] Comment on above: Result Comment: ADA RECOMMENDED LIMIT 4.0 - 6.0 ADA THERAPEUTIC TARGET < 7.0 ACTION SUGGESTED > 7.0 Performed By: #### A 1C #### [facility] [address] [place] [address] Dr. Brigette Peñaloza Glucose [Mass/Vol] 117 mg/dL Normal [facility] Comment on above: Performed By: #### A 1C #### [facility] [address] [place] [address] Dr. Brigette Peñaloza HbA1c (Bld) [Mass fraction] 5.7 % Normal 4.5-6.2 [facility] Comment on above: Performed By: #### A 1C #### [facility] [address] [address] [address] Brigette Peñaloza LIPID PROFILEon 04-24-2022 CHOL-HDL RATIO NORM SEE BELOW Normal [facility] Comment on above: Result Comment: 3.3 - 4.4 LOW RISK 4.4 - 7.1 AVERAGE RISK 7.1 - 11.0 MODERATE RISK >11.0 HIGH RISK Performed By: #### L IPID, TSH, LIVER, BMP #### [facility] [address] [address] [address] Brigette Peñaloza Cholesterol [Mass/Vol] 187 mg/dL Normal <=200 [facility] Comment on above: Performed By: #### L IPID, TSH, LIVER, BMP #### [facility] [address] [address] [address] Brigette Peñaloza Cholesterol in HDL [Mass/Vol] 54 mg/dL Normal 40-60 [facility] Comment on above: Performed By: #### L IPID, TSH, LIVER, BMP #### [facility] [address] [address] [address] Brigette Peñaloza Cholesterol in LDL [Mass/Vol] 105.6 mg/dL Normal [facility] Comment on above: Performed By: #### L IPID, TSH, LIVER, BMP #### [facility] [address] [address] [address] Brigette ePñaloza Cholesterol.total/Cho lesterol in HDL [Mass ratio] 3.5 {ratio} Normal [facility] Comment on above: Performed By: #### L IPID, TSH, LIVER, BMP #### [facility] [address] [address] [address] Brigette Peñaloza HDL NORMAL > or = 60 mg/dl - LOW CARDIOVASCULAR RISK <40 mg/dl - HIGH CARDIOVASCULAR RISK Normal [facility] Comment on above: Performed By: #### L IPID, TSH, LIVER, BMP #### [facility] [address] [address] [address] Brigette Peñaloza LDL CALC NORMAL SEE BELOW Normal [facility] Comment on above: Result Comment: <100 mg/dl OPTIMAL 100 - 129 mg/dl NEAR OR ABOVE OPTIMAL 130 - 159 mg/dl BORDERLINE HIGH 160 - 189 mg/dl HIGH >190 mg/dl VERY HIGH Performed By: #### L IPID, TSH, LIVER, BMP #### [facility] [address] [address] [address] Brigette Peñaloza Triglyceride [Mass/Vol] 137 mg/dL Normal <=150 [facility] Comment on above: Performed By: #### L IPID, TSH, LIVER, BMP #### [facility] [address] [address] [address] Brigette Peñaloza VLDL CALC 27.4 mg/dL Normal [facility] Comment on above: Performed By: #### L IPID, TSH, LIVER, BMP #### [facility] [address] [place] [address] Dr. Brigette Peñaloza LIVER PROFILEon 04-24-2022 Albumin [Mass/Vol] 3.6 g/dL Normal 3.4-5.0 [facility] Comment on above: Performed By: #### L IPID, TSH, LIVER, BMP #### [facility] [address] [address] [address] Brigette Peñaloza Albumin/Globulin [Mass ratio] 1.0 {ratio} Normal [facility] Comment on above: Performed By: #### L IPID, TSH, LIVER, BMP #### [facility] [address] [address] [address] Brigette Peñaloza ALP [Catalytic activity/Vol] 97 U/L Normal 46-116 [facility] Comment on above: Performed By: #### L IPID, TSH, LIVER, BMP #### [facility] [address] [address] [address] Brigette Peñaloza ALT [Catalytic activity/Vol] 41 U/L Normal 14-59 [facility] Comment on above: Performed By: #### L IPID, TSH, LIVER, BMP #### [facility] [address] [address] [address] Brigette Peñaloza AST [Catalytic activity/Vol] 24 U/L Normal 15-37 [facility] Comment on above: Performed By: #### L IPID, TSH, LIVER, BMP #### [facility] [address] [place] [address] Dr. Brigette Peñaloza BILI, CONJUGATED 0.1 mg/dL Normal 0.0-0.2 [facility] Comment on above: Performed By: #### L IPID, TSH, LIVER, BMP #### [facility] [address] [place] [address] Dr. Brigette Peñaloza Bilirubin [Mass/Vol] 0.3 mg/dL Normal 0.2-1.0 [facility] Comment on above: Performed By: #### L IPID, TSH, LIVER, BMP #### [facility] [address] [place] [address] Dr. Brigette Peñaloza Globulin (S) [Mass/Vol] 3.5 g/dL Normal [facility] Comment on above: Performed By: #### L IPID, TSH, LIVER, BMP #### [facility] [address] [place] [address] Dr. Brigette Peñaloza Protein [Mass/Vol] 7.1 g/dL Normal 6.4-8.2 [facility] Comment on above: Performed By: #### L IPID, TSH, LIVER, BMP #### [facility] [address] [place] [address] Dr. Brigette Peñaloza PROF CHEM 8 (BAS METB)on Anion gap [Moles/Vol] 8.7 mmol/L Normal [facility] Comment on above: Performed By: #### L IPID, TSH, LIVER, BMP #### [facility] [address] [place] [address] Dr. Brigette Peñaloza Calcium [Mass/Vol] 9.1 mg/dL Normal 8.5-10.1 [facility] Comment on above: Performed By: #### L IPID, TSH, LIVER, BMP #### [facility] [address] [place] [address] Dr. Brigette Peñaloza Chloride [Moles/Vol] 106 mmol/L Normal 98-107 [facility] Comment on above: Performed By: #### L IPID, TSH, LIVER, BMP #### [facility] [address] [address] [address] Brigette Peñaloza CO2 [Moles/Vol] 29.7 mmol/L Normal 21.0-32.0 [facility] Comment on above: Performed By: #### L IPID, TSH, LIVER, BMP #### [facility] [address] [address] [address] Brigette Peñaloza Creatinine [Mass/Vol] 0.81 mg/dL Normal 0.55-1.02 [facility] Comment on above: Performed By: #### L IPID, TSH, LIVER, BMP #### [facility] [address] [address] [address] Brigette Peñaloza EGFR-AF COMORAN >60 Normal >=60 [facility] Comment on above: Performed By: #### L IPID, TSH, LIVER, BMP #### [facility] [address] [address] [address] Brigette Peñaloza EGFR-NON AF COMORAN >60 Normal >=60 [facility] Comment on above: Performed By: #### L IPID, TSH, LIVER, BMP #### [facility] [address] [address] [address] Brigette Peñaloza Glucose [Mass/Vol] 114 mg/dL Critically high 74-106 [facility] Comment on above: Performed By: #### L IPID, TSH, LIVER, BMP #### [facility] [address] [address] [address] Brigette Peñaloza Potassium [Moles/Vol] 4.4 mmol/L Normal 3.5-5.1 [facility] Comment on above: Performed By: #### L IPID, TSH, LIVER, BMP #### [facility] [address] [address] [address] Brigette Peñaloza Sodium [Moles/Vol] 140 mmol/L Normal 136-145 [facility] Comment on above: Performed By: #### L IPID, TSH, LIVER, BMP #### [facility] [address] [address] [address] Brigette Peñaloza Urea nitrogen [Mass/Vol] 9.0 mg/dL Normal 7.0-18.0 [facility] Comment on above: Performed By: #### L IPID, TSH, LIVER, BMP #### [facility] [address] [place] [address] Dr. Brigette Peñaloza Urea nitrogen/Creatinine [Mass ratio] 11.1 mg/mg Normal [facility] Comment on above: Performed By: #### L IPID, TSH, LIVER, BMP #### [facility] [address] [place] [address] Dr. Brigette Peñaloza TSHon 04-24-2022 TSH 1.598 uIU/mL Normal 0.358-3.740 [facility] Comment on above: Performed By: #### L IPID, TSH, LIVER, BMP #### [facility] [address] [place] [address] Dr. Brigette Peñaloza VITAMIN D 25 OHon 04-24-2022 VIT D 25-OH 50.4 ng/mL Normal [facility] Comment on above: Performed By: #### V ITAD #### [facility] [address] [place] [address] Dr. Brigette Peñaloza VIT D RANGES SEE BELOW Normal [facility] Comment on above: Result Comment: <20 ng/mL Vit D deficient 20 - <30 ng/mL Vit D insufficient 30 - 100 ng/mL Vit D sufficient >100 ng/mL Potential Toxicity Performed By: #### V ITAD #### [facility] [address] [place] [address] Dr. Brigette Peñaloza Vital Signs Date Time Vital Sign Value Performing Clinician Facility 12-10-2023 14:040 Body height 167.6 cm Jignesh Saez MD Work Phone: [facility] 12-10-2023 14:06-0400 Body mass index (BMI) [Ratio] 28.08 kg/m2 Jignesh Saez MD Work Phone: [facility] 12-10-2023 14:06040 Body temperature 95.7 [degF] Jignesh Saez MD Work Phone: [facility] 12-10-2023 14:06-0400 Body weight 78.93 kg Jignesh Saez MD Work Phone: [facility] 12-10-2023 14:06-0400 Diastolic blood pressure 66 mm[Hg] Jignesh Saez MD Work Phone: [facility] 12-10-2023 14:06-0400 Heart rate 31 /min Jignesh Saez MD Work Phone: [facility] 12-10-2023 14:06-0400 Respiratory rate 22 /min Jignesh Saez MD Work Phone: [facility] 12-10-2023 14:06-0400 SaO2% (BldA) [Mass fraction] 93 % Jignesh Saez MD Work Phone: [facility] 12-10-2023 14:06-0400 Systolic blood pressure 110 mm[Hg] Jignesh Saez MD Work Phone: [facility] 04-11-2023 13:13-0500 Body height 167.6 cm Jignesh Saez MD Work Phone: [facility] 04-11-2023 13:13-0500 Body mass index (BMI) [Ratio] 29.7 kg/m2 Jignesh Saez MD Work Phone: [facility] 04-11-2023 13:13-0500 Body temperature 97.3 [degF] Jignesh Saez MD Work Phone: [facility] 04-11-2023 13:13-0500 Body weight 83.46 kg Jignesh Saez MD Work Phone: [facility] 04-11-2023 13:13-0500 Diastolic blood pressure 70 mm[Hg] Jignesh Saez MD Work Phone: [facility] 04-11-2023 13:13-0500 Heart rate 80 /min Jignesh Saez MD Work Phone: [facility] 04-11-2023 13:13-0500 SaO2% (BldA) [Mass fraction] 95 % Jignesh Saez MD Work Phone: [facility] 04-11-2023 13:13-0500 Systolic blood pressure 130 mm[Hg] Jignesh Saez MD Work Phone: [facility] 05-13-2022 15:30-0400 Body height 165.74 cm Rivka Reyez Other [employer] Other 05-13-2022 15:30-0400 Body mass index (BMI) [Ratio] 30.45 kg/m2 Rivka eRyez Other [employer] Other 05-13-2022 15:30-0400 Body temperature 98.9 [degF] Rivka Reyez Other [employer] Other 05-13-2022 15:30-0400 Body weight 83.64 kg Rivka Reyez Other [employer] Other 05-13-2022 15:30-0400 Diastolic blood pressure 69 mm[Hg] Rivka Reyez Other [employer] Other 05-13-2022 15:30-0400 SaO2% (BldA) [Mass fraction] 93 % Rivka Reyez Other [employer] Other 05-13-2022 15:30-0400 Systolic blood pressure 116 mm[Hg] Rivka Reyez Other [employer] Other Encounters Encounter Date Encounter Type Care Provider Facility Start: 12-10-2023 End: 12-10-2023 Bamboo flowsheet Jignesh Saez MD Work Phone: [facility] Start: 12-10-2023 End: 12-10-2023 Bamboo flowsheet [...] Start: 10-09-2023 End: 10-09-2023 ambulatory BRIEN WESTBROOK Facility:[facility] Start: 10-09-2023 End: 10-09-2023 Office outpatient new [...] 05-13-2022 End: 05-13-2022 ambulatory Rivka Reyez Other [employer] Other Start: 05-13-2022 Office outpatient ne w 20 minutes Rivka Reyez [facility] [place] Start: 04-24-2022 End: 04-25-[address] JIGNESH SAEZ Facility:[facility] Start: 09-27-2021 End: 09-27-[address] JIGNESH SAEZ Facility:[facility] Start: 07-17-2020 End: 07-18-2020 ambulatory UNKNOWN PROVIDER Facility:[facility] Start: 04-19-2017 End: 04-20-2017 Ambulatory DEFAULT PHYSICIAN Facility:[facility] Procedures Date Procedure Procedure Detail Performing Clinician Start: 10-09-2023 End: 10-09-2023 Xtrnl ocular photog w/i&r docmt medical progre Gdieon Ruelas MD Work Phone: Start: 02-28-2023 Mammography Jignesh nowak MD Work Phone: Start: 10-09-2018 Colonoscopy Jignesh nowak MD Work Phone: Plan of Treatment Date Care Activity Detail Author Start: 10-09-2028 Screening for malign ant neoplasm of colon [facility] Start: 02-29-2024 Screening for malign ant neoplasm of breast Mammogram [facility] Start: 01-08-2024 End: 01-08-2024 Patient encounter [...] [facility] [address] [place] [phone] Jignesh Saez MD [address] [place] [id number] Arrived [facility] Comment on above: Arrived Start: 11-03-2023 Influenza vaccination Influenza Vacc ine (#1) [facility] Start: 05-07-2023 End: 05-07-2023 Patient encounter procedure 05/07/2023 9:15 AM EST Office Visit [facility] [address] [place] [phone] Jignesh Saez MD [address] [place] [id number] [facility] Start: 03-04-2023 Advance Directive Discussion Advance Directive Discussion [facility] Start: 11-02-2022 Covid-19 Vaccine ( season) Covid-19 Vaccine ( season) [facility] Start: 11-02-2022 Influenza vaccination Influenza Vacc ine (#1) [facility] Start: 05-05-2019 Pneumococcal Vaccine : 65+ (1 of 1 - PCV) Pneumococcal Vaccine: 65+ (1 of 1 - PCV) [facility] Start: 05-05-2019 Screening for osteoporosis Bone Density Screening [facility] Start: 2014 RSV Vaccine (1 - 1-d ose 60+ series) RSV Vaccine (1 - 1-dose 60+ series) [facility] Start: 2004 Shingrix Vaccine (1 of 2) Shingrix Vaccine (1 of 2) [facility] Start: 05-05-1999 Diabetes Screening Diabetes Screenin g [facility] Start: 05-05-1999 Lipid panel Lipid Screening [facility] Start: 05-05-1999 Screening for malign ant neoplasm of colon [facility] Start: 1994 Screening for malign ant neoplasm of breast Mammogram Screening [facility] Start: 1973 Urine microalbumin profile DTaP,Tdap,Td Vaccine (1 - Tdap) [facility] Start: 1972 Anxiety Screening Anxiety Screening [facility] Start: 1972 Depression Screening Depression Scre ening [facility] Start: 1972 Hepatitis C screening Hepatitis C Sc reening [facility] Start: 1960 Pneumococcal Vaccine : 65+ Years (1 - PCV) Pneumococcal Vaccine: 65+ Years (1 - PCV) [facility] Start: 1960 Pneumococcal Vaccine : 65+ Years (1 of 2 - PCV) Pneumococcal Vaccine: 65+ Years (1 of 2 - PCV) [facility] Start: 1954 Medicare Annual Wellness (AWV) Medicare Annual Wellness (AWV) [facility] Start: 1954 Screening for malign ant neoplasm of colon [facility] Payers Date Payer Category Payer Medicare [employer] MEDIC[employer] E [employer] BY JO [id number] 2023-Present [address] [place] [address] [id number] 2023 Medicare [id number] [address] [facility] [id number] 1959 Medicare [id number] 1954 Unknown [id number] 1954 Unknown [id number] 1954 Unknown [id number] 1954 Unknown [id number] 1259 1954 Unknown [id number] 1259 1954 Unknown [id number] 1259 1954 Unknown [id number] 1259 1954 Unknown [id number] [id number] Social History Date Type Detail Facility Unknown if ever smoked [employer] Other Start: 02-19-2023 End: 07-11-2023 Sex Assigned At [employer] Other Start: 02-19-2023 End: 10-09-2023 Tobacco smoking status NHIS Ex-smoker [facility] End: 06-09-2017 History of tobacco use Current smoker [facility] End: 06-09-2017 History of tobacco use Cigarette Smoker [facility] Start: 02-19-2023 End: 07-11-2023 Cigarettes smoked current (pack per day) - Reported 0.3 [facility] Start: 02-19-2023 End: 10-09-2023 Tobacco use and exposure Smokeless tobacco non-user [facility] Start: 1955 Sex Assigned At Not on file N [facility] Start: 10-09-2023 Alcohol intake Current drinke r of alcohol (finding) [facility] National Score (1-100), lower number is lower risk 80 [facility] Start: 10-09-2023 Alcohol Comment occasional [facility] Clinical Notes 05-13-2022 to 12-10-2023 [...] DEXA bone density documented in this encounter [facility] 10-09-2023 Note Date of Procedure 10/09/2023. Notes Bilateral upper eyelid ptosis with brow ptosis, dermatochalasis, skin on lashes temporally. ZEISS 10-09-2023 Note Date of Procedure 10/09/2023. Labor Representative Information Right Eye Difference between Bishop visual field results of lids tapped and untaped 15. Left Eye Difference between Bishop visual field results of lids tapped and untaped 15. Interpretation Right Eye Decreased superior visual field. Left Eye Decreased superior visual field. [facility] 10-09-2023 Instructions Gideon Ruelas MD - 10/09/2023 [...] pressure 10-15 min documented in this encounter [facility] 10-09-2023 Note HNO ID: [id number] Author: GIDEON RUELAS MD Service: ? Author Type: Fellow Type: Progress Notes Filed: 11/06/2023 15:39 Note Text: History: Pepper Ernandez is a 68 year old woman with history of droopy eyelids, now bothersome for the past year. She was referred by her umbrella supervisor Dr. Westbrook for dermatochalasis. She is most [...] the above, please contact me directly at [phone]. Gideon Ruelas MD [facility] 10-09-2023 History of Present illness Narrative History: Pepper Ernandez is a 68 year old woman with history of droopy eyelids, now bothersome for the past year. She was referred by her umbrella supervisor Dr. Westbrook for dermatochalasis. She is most [...] 1 year prn. documented in this encounter [facility] 04-11-2023 History of Present illness Narrative Associated [...] 37.5 MG tablet documented in this encounter [facility] 05-13-2022 Evaluation note Encounter Date Diagnosis Assessment Notes May, Bug bite, initial encounter (ICD-10 - W57.XXXA) Take medications as directed. Complete all doses. Unable to determine what type of insect cause bites. . Follow up with primary care provider if no improvement of symptoms with treatment plan [employer] Other Evaluation note* Diagnosis Essential hypertension, benign (CMS/HCC)- Primary Essential hypertension, benign Chronic obstructive pulmonary disease, unspecified COPD type (CMS/HCC) Tobacco user Tobacco use disorder Obesity (BMI 30-39.9) Lower extremity edema Edema [facility] Ptosis of both eyelids- Primary Unspecified ptosis of eyelid [facility] Diagnosis Closed Colles' fracture of left radius with routine healing- Primary Essential hypertension, benign (CMS/HCC) Essential hypertension, benign Postmenopausal Asymptomatic postmenopausal status (age-related) (natural) [facility] - Reported* Type Description Date Medical History Esophageal reflux Medical History Hypertension Medical History Chronic bronchitis Surgical History tubal Surgical History appendectomy Hospitalization History see above Hospitalization History sob, low 02 levels 06/21 18 07/2017 [employer] Other Summary Purpose Family History No Family [...] 30-39.9) Jignesh Saez MD [address] [place] [address] Referral ID Status Reason Start Date Expiration Date V isits Requested Visits Authorized [id number] Pending Review 1 1 Additional Source Comments INFORMATION SOURCE (unrecogn ized section and content) DATE CREATED AUTHOR 08/23/2017 [facility] DATE CREATED AUTHOR AUTHOR'S ORGANIZ ATION 07/18/2020 [facility] [facility] DATE CREATED AUTHOR AUTHOR'S ORGANIZ ATION 07/11/2022 [facility] DATE CREATED AUTHOR AUTHOR'S ORGANIZ ATION 11/08/[address] [facility] DATE CREATED AUTHOR AUTHOR'S ORGANIZ ATION 12/12/2023 [facility] EPIC REASON FOR VISIT (unrecogniz ed section and content) Reason Comments Follow-up 1 m Reason Comments Dermatochalasis Evaluation Reason Comments Follow-up Broken wrist Care Teams (unrecognized sec tion and content) Alterations Expert Relationship Specialty Start Date End Date Jignesh Saez MD [address] [place] [phone] PCP - General Family Medicine 04/11/23 Alterations Expert Relationship Specialty Start Date End Date Jignesh Saez MD [address] [place] [address] PCP - General Family Medicine 04/11/23 Alterations Expert Relationship Specialty Start Date End Date Jignesh Saez [address] [place] [phone] PCP - General Family Medicine 09/26/23 Alterations Expert Relationship Specialty Start Date End Date Jignesh Saez MD [address] [place] [address] PCP - General Family Medicine 04/11/23 Alterations Expert Relationship Specialty Start Date End Date Jignesh Saez MD [address] [place] [place] [phone] PCP - General Family Medicine 04/11/23 Source Comments (unrecognize d section and content) In the event this informatio n is protected by the Federal Confidentiality of Alcohol and Drug Abuse Patient Records regulations: The Federal rules restrict any use of the information to criminally investigate or prosecute any alcohol or drug abuse patient.[facility] FOR RECORDS PERTAINING TO PATIENTS WHO ARE [...] BE BASED ON THE PRIMARY CLINICAL RECORDS. [facility]. provides no warranty or guarantee of the accuracy or completeness of information in this document.
== END 2024-01-06 08:26 | disposition home or self-care (01) ==
LOC: EC 08:25
PROVIDERS: PCP Family Medicine; Visit Provider Orthopaedic Surgery
DX: Z78.0 Asymptomatic menopausal state (principal); M81.0 Age-related osteoporosis without current pathological fracture; S52.612A Displaced fracture of left ulna styloid process, initial encounter for closed fracture; S52.572A Other intraarticular fracture of lower end of left radius, initial encounter for closed fracture
CPT/HCPCS: 73110; 77080

== ENCOUNTER 2024-02-03 08:22 | Outpatient (OUT) | payer OTHER, BC, SELFPAY ==
--- NOTE | 2024-02-03 | XR_ITS ---
The [address] [address] Patient Name: RADHA ERNANDEZ MRN: [id number] date: 1955 Sex: F Assigned Patient Location: Current Patient Location: Accession/Order Number: [id number] Exam Date: 02/03/2024 08:24 Report Date: 02/04/2024 06:26 At the request of: ANUM BARRIENTOS Procedure: XR wrist LT min 3V PROCEDURE: XR wrist LT min 3V HISTORY: LEFT WRIST PAIN COMPARISON: XR wrist left 01/06/2024 FINDINGS: BONES:Prior mechanical repair of distal radius via anterior plate and screws; no appreciable hardware fracture or loosening. No visible residual fracture line of the radius. Remote ulnar styloid process fracture with partial fusion. SOFT TISSUES:Soft tissue swelling surrounding the wrist. EFFUSION:None visible. OTHER: Negative. XR/XR wrist LT min 3V IMPRESSION: 1. Stable surgical changes without evidence of hardware failure or change in alignment. 2. Ongoing bone healing. Electronically authenticated by: ANUM NAGEL Date: 02/04/2024 06:26
--- OUTSIDE RECORDS SUMMARY | 2024-02-03 08:44 | XMS_ITS | CCD ---
Author Organization [facility] Care Team Providers Care Orchard Pruner Name Role Phone PHYSICIAN, DEFAULT Unavailable Unavailable PHYSICIAN, DEFAULT Unavailable Unavailable PROVIDER, UNKNOWN Attending Unavailable PROVIDER, UNKNOWN Admitting Unavailable Rivka Reyez Unavailable NADJA, DR JIGNESH Zhou Primary Care Unavailable SAMSA ., TYRON Admitting Unavailable SAMSA ., TYRON Attending Unavailable NADERER, DR JIGNESH Zhou Consulting Unavailable MARIELOSERER, DR JIGNESH Zhou Attending Unavailable NADJA, DR JIGNESH Zhou Admitting Unavailable NADJA, DR JIGNESH Zhou Primary Care Unavailable Jignesh Saez MD Primary Care Provider Jignesh Saez Primary Care Provider BRIEN WESTBROOK Referring Unavailab le JIGNESH SAEZ Primary Care Unavailable GIDEON RUELAS Attending Unavailable NADERER, JIGNESH Attending Unavailable NADERER, JIGNESH Attending Unavailable NADERER, JIGNESH Attending Unavailable NADERER, JIGNESH Attending Unavailable NADERER, JIGNESH Attending Unavailable NADEREKai, JIGNESH Attending Unavailable Medications Current Medications Medication Drug Class(es) Dates Sig (Normalized) Sig (Original) [id number] 200 actuat albuterol 0.09 mg/actuat metered dose inhaler (20 sources) beta2-Adrenergic Agonist Start: 02-18-2023 take 2 [...] Sulfat e (2.5 MG/ 3 ML) Active alendronic acid 70 mg oral tablet (4 sources) Bisphosphonate Start: 01-07-2024 take 1 tablet by mouth in the morning alendronate (Fosamax) 70 MG tablet Indications: Age-related osteoporosis without current pathological fracture (CMS/HCC) Take 1 tablet (70 mg) by mouth every 7 (seven) days Take in the morning with a full glass of water, on an empty stomach, and do not take anything else by mouth or lie down for the next 30 min. 12 tablet 3 01/07/2024 Active amLODIPine 10 mg oral tablet (12 sources) Dihydropyridine Calcium Channel Bree Start: 10-07-2023 [...] Ellipta Active cholecalciferol 0.05 mg oral tablet (11 sources) Vitamin D Start: 021 take 1 [...] omeprazole 40 mg delayed release oral capsule (11 sources) Proton Pump Inhibitor Start: 024 take [...] Active Trelegy Ellipta 200-62.5-25 MCG/ACT aerosol powder (10 sources) Start: 02-19-2023 take 1 puff(s) by inhalation in the morning Trelegy Ellipta 200-62.5-25 MCG/ACT aerosol powder Inhale 1 puff in the morning. 02/19/2023 Active Start: 02-19-2023 take 1 puff(s) by in halation in the morning Trelegy Ellipta 200-62.5-25 MCG/ACT aerosol powder Inhale 1 puff in the morning. 0 02/19/2023 Active varenicline 1 mg oral tablet (15 sources) Partial Cholinergic Nicotinic Agonist Start: 10-22-2023 End: 01-08-2024 take 1 tablet by mouth in the morning varenicline (Chantix) 1 MG tablet Indications: Tobacco user Take 1 tablet (1 mg) by mouth in the morning and 1 tablet (1 mg) before bedtime. Take with full glass of water.. 60 tablet 1 10/22/2023 01/08/2024 Discontinued Start: 04-11-2023 take 1 tablet by angela [...] Active Start: 02-19-2023 End: 04-11-2023 Varenicline Tartrate, Starte r, (Chantix Starting Month ) 0.5 MG [...] / neomycin 3.5 mg/ml / polymyxin b [id number] unt/ml ophthalmic suspension (1 source) Aminoglycoside Antibacterial, Polymyxin-class Antibacterial, Corticosteroid Start: 10-03-2016 take 2 drop(s) into the eye(s) three times daily Maxitrol [id number] 2 drops into affected eye Ophthalmic Three [...] Episodic/Chronic Chronic obstructive pulmonary disease and bronchiectasis (15 sources) Acute exacerbation of chronic obstructive airways disease; Translations: [Chronic obstructive pulmonary disease with (acute) exacerbation] Onset: 02-19-2023 02-19-2023 Chronic Diabetes mellitus without complication (13 sources) Prediabetes; Translations: [Prediabetes] Onset: 04-27-2022 02-19-2023 Episodic Diseases of white blood cells (10 sources) 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; Translations: [Other eosinophilia] Onset: 02-19-2023 02-19-2023 Chronic Disorders of lipid metabolism (13 sources) Hyperlipidemia, unspecified; Translations: [Dyslipidemia] Onset: 04-27-2022 02-19-2023 Chronic E Codes: Natural/environment (1 source) Bitten or stung by nonvenomous insect and other nonvenomous arthropods, initial encounter Episodic Esophageal disorders (10 sources) Gastroesophageal reflux disease; Translations: [Gastro-esophageal reflux disease without esophagitis] Onset: 02-19-2023 02-19-2023 Chronic Essential hypertension (17 sources) Essential (primary) hypertension; Translations: [Benign essential hypertension] Onset: 04-27-2022 02-19-2023 Chronic Fracture of upper limb (8 sources) Closed Colles' fracture; Translations: [Colles' fracture of left radius, subsequent encounter for closed fracture with routine healing] Onset: 12-10-2023 Resolved: 01-08-2024 12-10-2023 Episodic Nutritional deficiencies (14 sources) Vitamin D deficiency, unspecified; Translations: [Vitamin D deficiency] Onset: 04-24-2022 Chronic Osteoporosis (5 sources) Senile osteoporosis; Translations: [Age-related osteoporosis without current pathological fracture] Onset: 12-10-2023 01-07-2024 Chronic Other aftercare (1 source) Other detention (current) drug therapy; Translations: [OTH ON SITE MANAGER CURRENT DRUG THERAPY] Onset: 04-27-2022 Episodic Other aftercare (4 sources) Long-term current use of drug therapy; Translations: [Other detention (current) drug therapy] Onset: 01-08-2024 01-08-2024 Episodic Other eye disorders (1 source) Ptosis [...] Translations: [Obesity, unspecified] Onset: 04-11-2023 04-11-2023 Chronic Other nutritional; endocrine; and metabolic disorders (9 sources) Body mass index 25-29 - overweight; Translations: [Overweight] Onset: 04-11-2023 07-11-2023 Episodic Residual codes; unclassified (10 sources) Hypersomnia; Translations: [Hypersomnia, unspecified] Onset: 02-19-2023 02-19-2023 Chronic Residual codes; unclassified (4 sources) Postmenopausal state; Translations: [Asymptomatic menopausal state] Onset: 10-08-2024 10-08-2024 Episodic Past or Other Problems Problem Classification Problem Date Documented Da te Episodic/Chronic Mood disorders (2 sources) Mood disorders Onset: 01-08-2024 01-08-2024 Residual codes; unclassified (12 sources) Edema of lower extremity; Translations: [Localized edema] Onset: 02-19-2023 02-19-2023 Episodic Residual codes; unclassified (12 sources) Tobacco user; Translations: [Tobacco use] Onset: 02-19-2023 02-19-2023 Episodic Results Test Name Value Interpretation Reference Range Facility EXTERNAL PHOTOS OU (BOTH EYE S)on 10-09-2023 [facility] Radiology Study observation (narrative) [facility] PTOSIS VISUAL FIELD OU (BOTH EYES)on 10-09-2023 [facility] Radiology Study observation (narrative) [facility] CBC AUTO DIFFon 04-24-2022 BASO # 0.1 103/ul Normal 0.0-0.1 [facility] Comment on above: Performed By: #### C BC #### [facility] [address] [place] [address] Dr. Brigette Peñaloza Basophils/100 WBC (Bld) 0.7 % Normal 0.2-2.0 [facility] Comment on above: Performed By: #### C BC #### [facility] [address] [place] [address] Dr. Brigette Peñaloza EO # 0.3 103/ul Normal 0.0-0.7 [facility] Comment on above: Performed By: #### C BC #### [facility] [address] [place] [address] Dr. Brigette Peñaloza Eosinophils/100 WBC (Bld) 4.9 % Normal 0.9-7.0 [facility] Comment on above: Performed By: #### C BC #### [facility] [address] [place] [address] Dr. Brigette Peñaloza Erythrocyte distribution width (RBC) [Ratio] 12.7 % Normal 11.0-15.0 [facility] Comment on above: Performed By: #### C BC #### [facility] [address] [place] [address] Dr. Brigette Peñaloza Hematocrit (Bld) [Volume fraction] 48.0 % Normal 36.0-48.0 [facility] Comment on above: Performed By: #### C BC #### [facility] [address] [place] [address] Dr. Brigette Peñaloza Hemoglobin (Bld) [Mass/Vol] 16.1 g/dL Critically high 12.0-16.0 [facility] Comment on above: Performed By: #### C BC #### [facility] [address] [place] [address] Dr. Brigette Peñaloza IG # 0.02 10e3/ul Normal 0.00-0.03 [facility] Comment on above: Performed By: #### C BC #### [facility] [address] [place] [address] Dr. Brigette Peñaloza IG % 0.3 % Normal 0.0-0.5 [facility] Comment on above: Performed By: #### C BC #### [facility] [address] [place] [address] Dr. Brigette Peñaloza LYMPH # 2.7 103/ul Normal 1.2-3.8 [facility] Comment on above: Performed By: #### C BC #### [facility] [address] [place] [address] Dr. Brigette Peñaloza Lymphocytes/100 WBC (Bld) 39.2 % Normal 20.5-60.0 [facility] Comment on above: Performed By: #### C BC #### [facility] [address] [place] [address] Dr. Brigette Peñaloza MANUAL DIFF REQ NO Normal [facility] Comment on above: Performed By: #### C BC #### [facility] [address] [place] [address] Dr. Brigette Peñaloza MCH (RBC) [Entitic mass] 30.3 pg Normal 26.7-34.0 [facility] Comment on above: Performed By: #### C BC #### [facility] [address] [place] [address] Dr. Brigette Peñaloza MCHC (RBC) [Mass/Vol] 33.5 g/dL Normal 29.9-35.2 [facility] Comment on above: Performed By: #### C BC #### [facility] [address] [address] [address] Brigette Peñaloza MCV (RBC) [Entitic vol] 90.4 fL Normal 81.0-99.0 [facility] Comment on above: Performed By: #### C BC #### [facility] [address] [address] [address] Brigette Peñaloza MONO # 0.7 103/ul Normal 0.3-0.8 [facility] Comment on above: Performed By: #### C BC #### [facility] [address] [place] [address] Dr. Brigette Peñaloza Monocytes/100 WBC (Bld) 9.9 % Normal 1.7-12.0 [facility] Comment on above: Performed By: #### C BC #### [facility] [address] [place] [address] Dr. Brigette Peñaloza NEUT # 3.1 103/ul Normal 1.4-6.5 [facility] Comment on above: Performed By: #### C BC #### [facility] [address] [place] [address] Dr. Brigette Peñaloaz Neutrophils/100 WBC (Bld) 45.0 % Normal 43.0-75.0 [facility] Comment on above: Performed By: #### C BC #### [facility] [address] [place] [address] Dr. Brigette Peñaloza Platelet mean volume (Bld) [Entitic vol] 10.2 fL Normal 9.5-13.5 [facility] Comment on above: Performed By: #### C BC #### [facility] [address] [place] [address] Dr. Brigette Peñaloza PLT 283 103/ul Normal 150-450 [facility] Comment on above: Performed By: #### C BC #### [facility] [address] [place] [address] Dr. Brigette Peñaloza RBC 5.31 106/ul Normal 4.20-5.40 [facility] Comment on above: Performed By: #### C BC #### [facility] [address] [address] [address] Brigette Peñaloza WBC 7.0 103/ul Normal 4.0-11.0 [facility] Comment on above: Performed By: #### C BC #### [facility] [address] [address] [address] Brigette Peñaloza GLYCOHEMOGLOBIN A1Con 2022 ADA RECOMMENDATION SEE BELOW Normal [facility] Comment on above: Result Comment: ADA RECOMMENDED LIMIT 4.0 - 6.0 ADA THERAPEUTIC TARGET < 7.0 ACTION SUGGESTED > 7.0 Performed By: #### A 1C #### [facility] [address] [address] [address] Brigette Peñaloza Glucose [Mass/Vol] 117 mg/dL Normal [facility] Comment on above: Performed By: #### A 1C #### [facility] [address] [address] [address] Brigette Peñaloza HbA1c (Bld) [Mass fraction] 5.7 % Normal 4.5-6.2 [facility] Comment on above: Performed By: #### A 1C #### [facility] [address] [address] [address] Brigette Peñaloza LIPID PROFILEon 04-24-2022 CHOL-HDL RATIO NORM SEE BELOW Normal [facility] Comment on above: Result Comment: 3.3 - 4.4 LOW RISK 4.4 - 7.1 AVERAGE RISK 7.1 - 11.0 MODERATE RISK >11.0 HIGH RISK Performed By: #### L IPID, TSH, LIVER, BMP #### [facility] [address] [address] [address] Brigette Peñaloza Cholesterol [Mass/Vol] 187 mg/dL Normal <=200 [facility] Comment on above: Performed By: #### L IPID, TSH, LIVER, BMP #### [facility] [address] [address] [address] Brigette Peñaloaz Cholesterol in HDL [Mass/Vol] 54 mg/dL Normal 40-60 [facility] Comment on above: Performed By: #### L IPID, TSH, LIVER, BMP #### [facility] [address] [address] [address] Brigette Peñaloza Cholesterol in LDL [Mass/Vol] 105.6 mg/dL Normal [facility] Comment on above: Performed By: #### L IPID, TSH, LIVER, BMP #### [facility] [address] [address] [address] Brigette Peñaloza Cholesterol.total/Cho lesterol in HDL [Mass ratio] 3.5 {ratio} Normal [facility] Comment on above: Performed By: #### L IPID, TSH, LIVER, BMP #### [facility] [address] [address] [address] Brigette Peñaloza HDL NORMAL > or = 60 mg/dl - LOW CARDIOVASCULAR RISK <40 mg/dl - HIGH CARDIOVASCULAR RISK Normal [facility] Comment on above: Performed By: #### L IPID, TSH, LIVER, BMP #### [facility] [address] [address] [address] Brigette Peñaloza LDL CALC NORMAL SEE BELOW Normal [facility] Comment on above: Result Comment: <100 mg/dl OPTIMAL 100 - 129 mg/dl NEAR OR ABOVE OPTIMAL 130 - 159 mg/dl BORDERLINE HIGH 160 - 189 mg/dl HIGH >190 mg/dl VERY HIGH Performed By: #### L IPID, TSH, LIVER, BMP #### [facility] [address] [address] [address] Brigette Peñaloza Triglyceride [Mass/Vol] 137 mg/dL Normal <=150 [facility] Comment on above: Performed By: #### L IPID, TSH, LIVER, BMP #### [facility] [address] [address] [address] Brigette Peñaloza VLDL CALC 27.4 mg/dL Normal [facility] Comment on above: Performed By: #### L IPID, TSH, LIVER, BMP #### [facility] [address] [address] [address] Brigette Peñaloza LIVER PROFILEon 04-24-2022 Albumin [Mass/Vol] 3.6 g/dL Normal 3.4-5.0 [facility] Comment on above: Performed By: #### L IPID, TSH, LIVER, BMP #### [facility] [address] [address] [address] Brigette Peñaloza Albumin/Globulin [Mass ratio] 1.0 {ratio} Normal [facility] Comment on above: Performed By: #### L IPID, TSH, LIVER, BMP #### [facility] [address] [address] [address] rBigette Peñaloza ALP [Catalytic activity/Vol] 97 U/L Normal 46-116 [facility] Comment on above: Performed By: #### L IPID, TSH, LIVER, BMP #### [facility] [address] [address] [address] Brigette Peñaloza ALT [Catalytic activity/Vol] 41 U/L Normal 14-59 [facility] Comment on above: Performed By: #### L IPID, TSH, LIVER, BMP #### [facility] [address] [place] [address] Dr. Brigette Peñaloza AST [Catalytic activity/Vol] 24 U/L Normal 15-37 [facility] Comment on above: Performed By: #### L IPID, TSH, LIVER, BMP #### [facility] [address] [address] [address] Brigette Peñaloza BILI, CONJUGATED 0.1 mg/dL Normal 0.0-0.2 [facility] Comment on above: Performed By: #### L IPID, TSH, LIVER, BMP #### [facility] [address] [address] [address] Brigette Peñaloza Bilirubin [Mass/Vol] 0.3 mg/dL Normal 0.2-1.0 [facility] Comment on above: Performed By: #### L IPID, TSH, LIVER, BMP #### [facility] [address] [address] [address] Brigette Peñaloza Globulin (S) [Mass/Vol] 3.5 g/dL Normal [facility] Comment on above: Performed By: #### L IPID, TSH, LIVER, BMP #### [facility] [address] [address] [address] Brigette Peñaloza Protein [Mass/Vol] 7.1 g/dL Normal 6.4-8.2 [facility] Comment on above: Performed By: #### L IPID, TSH, LIVER, BMP #### [facility] [address] [place] [address] Dr. Brigette Peñaloza PROF CHEM 8 (BAS METB)on Anion gap [Moles/Vol] 8.7 mmol/L Normal [facility] Comment on above: Performed By: #### L IPID, TSH, LIVER, BMP #### [facility] [address] [place] [address] Dr. Brigette Peñaloza Calcium [Mass/Vol] 9.1 mg/dL Normal 8.5-10.1 [facility] Comment on above: Performed By: #### L IPID, TSH, LIVER, BMP #### [facility] [address] [place] [address] Dr. Brigette Peñaloza Chloride [Moles/Vol] 106 mmol/L Normal 98-107 [facility] Comment on above: Performed By: #### L IPID, TSH, LIVER, BMP #### [facility] [address] [place] [address] Dr. Brigette Peñaloza CO2 [Moles/Vol] 29.7 mmol/L Normal 21.0-32.0 [facility] Comment on above: Performed By: #### L IPID, TSH, LIVER, BMP #### [facility] [address] [place] [address] Dr. Brigette Peñaloza Creatinine [Mass/Vol] 0.81 mg/dL Normal 0.55-1.02 [facility] Comment on above: Performed By: #### L IPID, TSH, LIVER, BMP #### [facility] [address] [address] [address] Brigette Peñaloza EGFR-AF CITIZEN [place] >60 Normal >=60 [facility] Comment on above: Performed By: #### L IPID, TSH, LIVER, BMP #### [facility] [address] [place] [address] Dr. Brigette Peñaloza EGFR-NON AF CITIZEN OF [place] >60 Normal >=60 [facility] Comment on above: Performed By: #### L IPID, TSH, LIVER, BMP #### [facility] [address] [address] [address] Brigette Peñaloza Glucose [Mass/Vol] 114 mg/dL Critically high 74-106 [facility] Comment on above: Performed By: #### L IPID, TSH, LIVER, BMP #### [facility] [address] [address] [address] Brigette Peñaloza Potassium [Moles/Vol] 4.4 mmol/L Normal 3.5-5.1 [facility] Comment on above: Performed By: #### L IPID, TSH, LIVER, BMP #### [facility] [address] [place] [address] Dr. Brigette Peñaloza Sodium [Moles/Vol] 140 mmol/L Normal 136-145 [facility] Comment on above: Performed By: #### L IPID, TSH, LIVER, BMP #### [facility] [address] [place] [address] Dr. Brigette Peñaloza Urea nitrogen [Mass/Vol] 9.0 mg/dL Normal 7.0-18.0 [facility] Comment on above: Performed By: #### L IPID, TSH, LIVER, BMP #### [facility] [address] [place] [address] Dr. Brigette Peñaloza Urea nitrogen/Creatinine [Mass ratio] 11.1 mg/mg Normal [facility] Comment on above: Performed By: #### L IPID, TSH, LIVER, BMP #### [facility] [address] [place] [address] Dr. Brigette Peñaloza TSHon 04-24-2022 TSH 1.598 uIU/mL Normal 0.358-3.740 [facility] Comment on above: Performed By: #### L IPID, TSH, LIVER, BMP #### [facility] [address] [place] [address] Dr. Brigette Peñaloza VITAMIN D 25 OHon 04-24-2022 VIT D 25-OH 50.4 ng/mL Normal [facility] Comment on above: Performed By: #### V ITAD #### [facility] [address] [address] [address] Brigette Peñaloza VIT D RANGES SEE BELOW Normal [facility] Comment on above: Result Comment: <20 ng/mL Vit D deficient 20 - <30 ng/mL Vit D insufficient 30 - 100 ng/mL Vit D sufficient >100 ng/mL Potential Toxicity Performed By: #### V ITAD #### [facility] [address] [address] [address] Brigette Peñaloza Vital Signs Date Time Vital Sign Value Performing Clinician Facility 01-08-2024 11:05-0500 Body height 167.6 cm Jignesh Saez MD Work Phone: [facility] 01-08-2024 11:05-0500 Body mass index (BMI) [Ratio] 29.05 kg/m2 Jignesh Saez MD Work Phone: [facility] 01-08-2024 11:05-0500 Body temperature 96.01 [degF] Jignesh Saez MD Work Phone: [facility] 01-08-2024 11:05-0500 Body weight 81.65 kg Jignesh Saez MD Work Phone: [facility] 01-08-2024 11:05-0500 Diastolic blood pressure 74 mm[Hg] Jignesh Saez MD Work Phone: [facility] 01-08-2024 11:05-0500 Heart rate 82 /min Jignesh Saez MD Work Phone: [facility] 01-08-2024 11:05-0500 Respiratory rate 22 /min Jignesh Saez MD Work Phone: [facility] 01-08-2024 11:05-0500 SaO2% (BldA) [Mass fraction] 92 % Jignesh Saez MD Work Phone: [facility] 01-08-2024 11:05-0500 Systolic blood pressure 126 mm[Hg] Jignesh Saez MD Work Phone: [facility] 12-10-2023 14:06-0400 Body height 167.6 cm Jignesh Saez MD Work Phone: [facility] 12-10-2023 14:06-0400 Body mass index (BMI) [Ratio] 28.08 kg/m2 Jignesh Saez MD Work Phone: [facility] 12-10-2023 14:06-0400 Body temperature 95.7 [degF] Jignesh Saez MD Work Phone: [facility] 12-10-2023 14:06-0400 Body weight 78.93 kg Jignesh Saez MD Work Phone: [facility] 12-10-2023 14:06-0400 Diastolic blood pressure 66 mm[Hg] Jignesh Saez MD Work Phone: [facility] 12-10-2023 14:06-0400 Heart rate 31 /min Jignesh Saez MD Work Phone: [facility] 12-10-2023 14:06-0400 Respiratory rate 22 /min Jignesh Saez MD Work Phone: [facility] 12-10-2023 14:06-0400 SaO2% (BldA) [Mass fraction] 93 % Jignesh Saez MD Work Phone: [facility] 12-10-2023 14:06-0400 Systolic blood pressure 110 mm[Hg] Jignesh Saez MD Work Phone: [facility] 04-11-2023 13:13-0500 Body height 167.6 cm Jignesh Saez MD Work Phone: [facility] 04-11-2023 13:13-0500 Body mass index (BMI) [Ratio] 29.7 kg/m2 Jignesh Saez MD Work Phone: [facility] 04-11-2023 13:13-0500 Body temperature 97.3 [degF] Jignesh Saez MD Work Phone: [facility] 04-11-2023 13:13-0500 Body weight 83.46 kg Jignesh Saez MD Work Phone: [facility] 04-11-2023 13:13-0500 Diastolic blood pressure 70 mm[Hg] Jignesh Saez MD Work Phone: [facility] 04-11-2023 13:13-0500 Heart rate 80 /min Jignesh Saez MD Work Phone: [facility] 04-11-2023 13:13-0500 SaO2% (BldA) [Mass fraction] 95 % Jignesh Saez MD Work Phone: [facility] 04-11-2023 13:13-0500 Systolic blood pressure 130 mm[Hg] Jignesh Saez MD Work Phone: [facility] 05-13-2022 15:30-0400 Body height 165.74 cm Rivka Murilloault Other [employer] Other 05-13-2022 15:30-0400 Body mass index (BMI) [Ratio] 30.45 kg/m2 Rivka Murilloault Other [employer] Other 05-13-2022 15:30-0400 Body temperature 98.9 [degF] Rivka Murilloault Other [employer] Other 05-13-2022 15:30-0400 Body weight 83.64 kg Rivka Dereje Other [employer] Other 05-13-2022 15:30-0400 Diastolic blood pressure 69 mm[Hg] Rivka Dereje Other [employer] Other 05-13-2022 15:30-0400 SaO2% (BldA) [Mass fraction] 93 % Rivka Dereje Other [employer] Other 05-13-2022 15:30-0400 Systolic blood pressure 116 mm[Hg] Rivka Reyez Other [employer] Other Encounters Encounter Date Encounter Type Care Provider Facility Start: 01-08-2024 End: 01-08-2024 Bamboo flowsheet Jignesh Saez MD Work Phone: [facility] Start: 01-08-2024 End: 01-08-2024 Bamboo flowsheet Jignesh Saez MD Work Phone: [facility] Start: 01-08-2024 End: 01-08-2024 Patient encounter procedure Jignesh Saez MD Work Phone: [facility] Work Phone: Start: 01-08-2024 End: 01-08-2024 Postop follow up visit related to original px Jignesh Saez MD Work Phone: [facility] Comment on above: Medicare annual well ness visit, subsequent (Primary Dx); Essential hypertension, benign (CMS/HCC); Chronic obstructive pulmonary disease, unspecified COPD type (CMS/HCC); Dyslipidemia (CMS/HCC); Encounter for long-term (current) use of medications; Prediabetes; Overweight (BMI 25.0-29.9) Start: 01-08-2024 End: 01-08-2024 ambulatory JIGNSEH SAEZ Not Available Start: 01-07-2024 End: 01-07-2024 Orders Only Jignesh Saez MD Work Phone: [facility] Comment on above: Age-related osteopor osis without current pathological fracture (CMS/HCC) (Primary Dx) Start: 12-10-2023 End: 12-10-2023 Bamboo flowsheet Jignesh Saez MD Work Phone: [facility] Start: 12-10-2023 End: 12-10-2023 Bamboo flowsheet Jignesh [...] Start: 10-09-2023 End: 10-09-2023 ambulatory BRIEN WESTBROOK Facility:[facility] Start: 10-09-2023 End: 10-09-2023 Office outpatient new [...] 05-13-2022 End: 05-13-2022 ambulatory Rivka Reyez Other [employer] Other Start: 05-13-2022 Office outpatient ne w 20 minutes Rivka Reyez [facility] [place] Start: 04-24-2022 End: 04-25-[address] JIGNESH SAEZ Facility:[facility] Start: 09-27-2021 End: 09-27-[address] JIGNESH SAEZ Facility:[facility] Start: 07-17-2020 End: 07-18-2020 ambulatory UNKNOWN PROVIDER Facility:[facility] Start: 04-19-2017 End: 04-20-2017 Ambulatory DEFAULT PHYSICIAN [...] malign ant neoplasm of colon [facility] Start: 02-29-2024 Screening for malign ant neoplasm of breast Mammogram [facility] Start: 02-20-2024 End: 02-20-2024 Patient encounter procedure 02/20/2024 10:00 AM EST Office Visit [facility] [address] [place] [phone] Jignesh Saez MD [address] [place] [phone] [facility] Start: 01-08-2024 End: 01-07-2025 Basic metabolic 1998 panel - Serum or Plasma Basic metabolic panel Lab Routine Essential hypertension, benign (CMS/HCC) Expected: 01/08/2024 (Approximate), Expires: 01/07/2025 [facility] Comment on above: Expected: 01/08/2024 (Approximate), Expires: 01/07/2025 Start: 01-08-2024 End: 01-07-2025 CBC W Auto Differential panel - Blood CBC and differential Lab Routine Encounter for long-term (current) use of medications Expected: 01/08/2024 (Approximate), Expires: 01/07/2025 [facility] Comment on above: Expected: 01/08/2024 (Approximate), Expires: 01/07/2025 Start: 01-08-2024 End: 01-07-2025 Hemoglobin A1c/Hemoglobin.total in Blood Hemoglobin A1c Lab Routine Prediabetes Expected: 01/08/2024 (Approximate), Expires: 01/07/2025 [facility] Work Phone: Comment on above: Expected: 01/08/2024 (Approximate), Expires: 01/07/2025 Start: 01-08-2024 End: 01-07-2025 Hepatic function 2000 panel - Serum or Plasma Hepatic function panel Lab Routine Encounter for long-term (current) use of medications Expected: 01/08/2024 (Approximate), Expires: 01/07/2025 [facility] Comment on above: Expected: 01/08/2024 (Approximate), Expires: 01/07/2025 Start: 01-08-2024 End: 01-07-2025 Lipid 1996 panel - Serum or Plasma Lipid panel Lab Routine Dyslipidemia (CMS/HCC) Expected: 01/08/2024 (Approximate), Expires: 01/07/2025 [facility] Comment on above: Expected: 01/08/2024 (Approximate), Expires: 01/07/2025 Start: 01-08-2024 End: 01-07-2025 Thyrotropin [Units/volume] in Serum or Plasma TSH Lab Routine Prediabetes Overweight (BMI 25.0-29.9) Expected: 01/08/2024 (Approximate), Expires: 01/07/2025 [facility] Comment on above: Expected: 01/08/2024 (Approximate), Expires: 01/07/2025 Start: 01-08-2024 End: 01-08-2024 Patient encounter procedure [facility] Comment on above: Arrived Start: 12-10-2023 End: 12-09-2024 DXA Skeletal system Views for bone density DEXA bone density Imaging Routine Postmenopausal Expected: 12/10/2023, Expires: 12/09/2024 [facility] Work Phone: Comment on above: Expected: 12/10/2023 , Expires: 12/09/2024 Start: 12-10-2023 End: 12-10-2023 Patient encounter procedure 12/10/2023 2:00 PM EDT Office Visit [facility] [address] [place] [phone] Jignesh Saez MD [address] [place] [phone] Arrived [facility] Comment on above: Arrived Start: 11-03-2023 Influenza vaccination Influenza Vacc ine (#1) [facility] Start: 05-07-2023 End: 05-07-2023 Patient encounter procedure 05/07/2023 9:15 AM EST [facility] [address] [place] [phone] Jignesh Saez MD [address] [place] [address] [facility] Start: 03-04-2023 Advance Directive Discussion Advance Directive Discussion [facility] Start: 11-02-2022 Covid-19 Vaccine ( season) Covid-19 Vaccine ( season) [facility] Start: 11-02-2022 Influenza vaccination Influenza Vacc ine (#1) [facility] Start: 05-05-2019 Pneumococcal Vaccine : 65+ (1 of 1 - PCV) Pneumococcal Vaccine: 65+ (1 of 1 - PCV) [facility] Start: 05-05-2019 Screening for osteoporosis Bone Density Screening [facility] Start: 2014 RSV Vaccine (1 - 1-d ose 60+ series) RSV Vaccine (1 - 1-dose 60+ series) [facility] Start: 2004 Shingrix Vaccine (1 of 2) Shingrix Vaccine (1 of 2) [facility] Start: 05-05-1999 Diabetes Screening Diabetes Screenin g [facility] Start: 05-05-1999 Lipid panel Lipid Screening [facility] Start: 05-05-1999 Screening for malign ant neoplasm of colon [facility] Start: 1994 Screening for malign ant neoplasm of breast Mammogram Screening [facility] Start: 1973 Urine microalbumin profile DTaP,Tdap,Td Vaccine (1 - Tdap) [facility] Start: 1972 Anxiety Screening Anxiety Screening [facility] Start: 1972 Depression Screening Depression Scre ening [facility] Start: 1972 Hepatitis C screening Hepatitis C Sc francy [facility] Start: 1960 Pneumococcal Vaccine : 65+ Years (1 - PCV) Pneumococcal Vaccine: 65+ Years (1 - PCV) [facility] Start: 1960 Pneumococcal Vaccine : 65+ Years (1 of 2 - PCV) Pneumococcal Vaccine: 65+ Years (1 of 2 - PCV) [facility] Start: 1954 Medicare Annual Wellness (AWV) Medicare Annual Wellness (AWV) [facility] Start: 1954 Screening for malign ant neoplasm of colon [facility] Payers Date Payer Category Payer Medicare [employer] MEDICAR E WELLCARE BY JO [id number] 2023-Present [address] [place] [id number] 2023 Medicare (Managed Care) [employer] MEDICARE [id number] 2023 Medicare [id number] 2019 [facility] er [id number] 2019 Unknown 1959 Blue Cross Blue Shield [id number] 1959 Medicare [id number] 1954 Unknown [id number] 1954 Unknown [id number] [id number] 1954 Unknown [id number] [id number] 1954 Unknown [id number] [id number] 1954 Unknown [id number] [id number] 1954 Unknown [id number] [id number] 1954 Unknown [id number] 2.1259 1954 Unknown [id number] 2.1259 1954 Unknown [id number] [id number] Social History Date Type Detail Facility Unknown if ever smoked [employer] Other Start: 02-19-2023 End: 01-08-2024 Sex Assigned At [employer] Other Start: 02-19-2023 End: 10-09-2023 Tobacco smoking status NHIS Ex-smoker [facility] End: 06-09-2017 History of tobacco use Current smoker [facility] End: 06-09-2017 History of tobacco use Cigarette Smoker [facility] Start: 02-19-2023 End: 01-08-2024 Cigarettes smoked current (pack per day) - Reported 0.3 [facility] Start: 02-19-2023 End: 10-09-2023 Tobacco use and exposure Smokeless tobacco non-user [facility] Start: 1955 Sex Assigned At Not on file N [facility] Start: 10-09-2023 Alcohol intake Current drinke r of alcohol (finding) [facility] National Score (1-100), lower number is lower risk 80 [facility] Start: 10-09-2023 Alcohol Comment occasional [facility] Clinical Notes 05-13-2022 to 01-08-2024 Jignesh Saez MD - 01/08/2024 11:42 AM Araceli Saez MD - 01/08/2024 11:42 AM Araceli Saez MD - 01/08/2024 11:00 AM Araceli Saez MD - 12/10/2023 2:25 PM EDTPatient Instructions Note Date & Type Note Facility 01-08-2024 History of Present illness Narrative Associated Problem(s): Medicare annual wellness visit, subsequent Due for labs. Discussed proper diet and regular aerobic exercise. Need aerobic exercise 5-6 days a week for 30 minutes at a time. Smaller portions and limit total calories. Colonoscopy every 10 years. Tetanus every 10 years. Advised not to smoke. Discussed daily Aspirin therapy. Associated Problem(s): COPD (chronic obstructive pulmonary disease) ([facility]) Breathing stable and continue trelegy. Use albuterol PRN. Images from the original note were not included. Subjective Patient ID: Pepper Lacy is a 68 y.o. female who presents for Medicare Annual Wellness Visit Subsequent (Wellness/). Presents for medicare annual wellness visit. Patient feels well today. Weight unchanged over the past year. Trying to increase activity and walk more. Tries to watch diet and eat healthy. Increased fruits and vegetables. Smaller portions and limits snacking. Tries to limit total daily calories. Due for labs. Requests medication for weight loss. COPD stable and mild SOB with exertion. Review of Systems Respiratory: Negative for cough, [...] There is no guarding or rebound. Musculoskeletal: General: No swelling or tenderness. Cervical back: Neck supple. Right lower leg: No edema. Left lower leg: No edema. Skin: Findings: No erythema or rash. Neurological: General: No focal deficit present. Mental Status: She is alert and oriented to person, place, and time. Cranial Nerves: No cranial nerve deficit. Motor: No weakness. Gait: Gait normal. Assessment/Plan Problem List Items Addressed This Visit Essential hypertension, benign (CMS/HCC) Relevant Orders Basic metabolic panel COPD (chronic obstructive pulmonary disease) (CMS/HCC) Breathing stable and continue trelegy. Use albuterol PRN. Dyslipidemia (CMS/HCC) Relevant Orders Lipid panel Prediabetes Relevant Orders Hemoglobin A1c TSH Overweight (BMI 25.0-29.9) Relevant Orders TSH Medicare annual wellness visit, subsequent - Primary Due for labs. Discussed proper diet and regular aerobic exercise. Need aerobic exercise 5-6 days a week for 30 minutes at a time. Smaller portions and limit total calories. Colonoscopy every 10 years. Tetanus every 10 years. Advised not to smoke. Discussed daily Aspirin therapy. Encounter for long-term (current) use of medications Relevant Orders CBC and differential Hepatic function panel documented in this encounter [facility] 12-10-2023 History of Present illness Narrative Associated Problem(s): Closed Colles' fracture of left radius with routine healing Doing well after surgery and follow with ortho. Associated Problem(s): Essential hypertension, benign (CMS/HCC) BP controlled and monitor PRN. Associated Problem(s): Postmenopausal Check dexa. Images from the original note were not included. Subjective Patient ID: Pepper Lacy is a 68 y.o. female who presents [...] bone density documented in this encounter [facility] 10-09-2023 Note Date of Procedure 10/09/2023. Notes Bilateral upper eyelid ptosis with brow ptosis, dermatochalasis, skin on lashes temporally. [facility] 10-09-2023 Note Date of Procedure 10/09/2023. City Solicitor Information Right Eye Difference between Bishop visual field results of lids tapped and untaped 15. Left Eye Difference between Bishop visual field results of lids tapped and untaped 15. Interpretation Right Eye Decreased superior visual field. Left Eye Decreased superior visual field. [facility] 10-09-2023 Instructions Gideon Ruelas MD - [...] pressure 10-15 min documented in this encounter [facility] 10-09-2023 Note HNO ID: [id number] Author: GIDEON RUELAS MD Service: ? Author Type: Fellow Type: Progress Notes Filed: 11/06/2023 15:39 Note Text: History: Pepper Lacy is a 68 year old woman with history of droopy eyelids, now bothersome for the past year. She was referred by her clothes drier repairer Dr. Westbrook for dermatochalasis. She is most [...] the above, please contact me directly at [phone]. Gideon Ruelas MD [facility] 10-09-2023 History of Present illness Narrative History: Pepper Lacy is a 68 year old woman with history of droopy eyelids, now bothersome for the past year. She was referred by her clothes drier repairer Dr. Westbrook for dermatochalasis. She is most [...] 1 year prn. documented in this encounter [facility] 04-11-2023 History of Present illness Narrative Associated [...] MG tablet documented in this encounter [facility] 05-13-2022 Evaluation note Encounter Date Diagnosis Assessment Notes May, Bug bite, initial encounter (ICD-10 - W57.XXXA) Take medications as directed. Complete all doses. Unable to determine what type of insect cause bites. . Follow up with primary care provider if no improvement of symptoms with treatment plan [employer] Other Evaluation note* Diagnosis Essential hypertension, benign (CMS/HCC)- Primary Essential hypertension, benign Chronic obstructive pulmonary disease, unspecified COPD type (CMS/HCC) Tobacco user Tobacco use disorder Obesity (BMI 30-39.9) Lower extremity edema Edema documented in this encounter [facility]* Diagnosis Ptosis of both eyelids- Primary Unspecified ptosis of eyelid [facility] Diagnosis Closed Colles' fracture of left radius with routine healing- Primary Essential hypertension, benign (CMS/HCC) Essential hypertension, benign Postmenopausal Asymptomatic postmenopausal status (age-related) (natural) documented in this encounter [facility]* Diagnosis Essential hypertension, benign (CMS/HCC)- Primary Essential hypertension, benign Chronic obstructive pulmonary disease, unspecified COPD type (CMS/HCC) Tobacco user Tobacco use disorder Lower extremity edema Edema Gastroesophageal reflux disease without esophagitis Esophageal reflux Screening mammogram for breast cancer Essential hypertension, benign (CMS/HCC)- Primary Essential hypertension, benign Chronic obstructive pulmonary disease, unspecified COPD type (CMS/HCC) Tobacco user Tobacco use disorder Obesity (BMI 30-39.9) Lower extremity edema Edema Essential hypertension, benign (CMS/HCC)- Primary Essential hypertension, benign Chronic obstructive pulmonary disease, unspecified COPD type (CMS/HCC) Obesity (BMI 30-39.9) Lower extremity edema Edema Essential hypertension, benign (CMS/HCC)- Primary Essential hypertension, benign Chronic obstructive pulmonary disease, unspecified COPD type (CMS/HCC) Lower extremity edema Edema Gastroesophageal reflux disease without esophagitis Esophageal reflux Overweight (BMI 25.0-29.9) Overweight Closed Colles' fracture of left radius with routine healing- Primary Essential hypertension, benign (CMS/HCC) Essential hypertension, benign Postmenopausal Asymptomatic postmenopausal status (age-related) (natural) Age-related osteoporosis without current pathological fracture (CMS/HCC)- Primary documented in this encounter [facility]* Diagnosis Essential hypertension, benign (CMS/HCC)- Primary Essential hypertension, benign Chronic obstructive pulmonary disease, unspecified COPD type (CMS/HCC) Tobacco user Tobacco use disorder Lower extremity edema Edema Gastroesophageal reflux disease without esophagitis Esophageal reflux Screening mammogram for breast cancer Essential hypertension, benign (CMS/HCC)- Primary Essential hypertension, benign Chronic obstructive pulmonary disease, unspecified COPD type (CMS/HCC) Tobacco user Tobacco use disorder Obesity (BMI 30-39.9) Lower extremity edema Edema Essential hypertension, benign (CMS/HCC)- Primary Essential hypertension, benign Chronic obstructive pulmonary disease, unspecified COPD type (CMS/HCC) Obesity (BMI 30-39.9) Lower extremity edema Edema Essential hypertension, benign (CMS/HCC)- Primary Essential hypertension, benign Chronic obstructive pulmonary disease, unspecified COPD type (CMS/HCC) Lower extremity edema Edema Gastroesophageal reflux disease without esophagitis Esophageal reflux Overweight (BMI 25.0-29.9) Overweight Closed Colles' fracture of left radius with routine healing- Primary Essential hypertension, benign (CMS/HCC) Essential hypertension, benign Postmenopausal Asymptomatic postmenopausal status (age-related) (natural) Medicare annual wellness visit, subsequent- Primary Essential hypertension, benign (CMS/HCC) Essential hypertension, benign Chronic obstructive pulmonary disease, unspecified COPD type (CMS/HCC) Dyslipidemia (CMS/HCC) Other and unspecified hyperlipidemia Encounter for long-term (current) use of medications Encounter for long-term (current) use of other medications Prediabetes Other abnormal glucose Overweight (BMI 25.0-29.9) Overweight documented in this [facility] N[facility]ative - Reported* Type Description Date Medical History Esophageal reflux Medical History Hypertension Medical History Chronic bronchitis Surgical History tubal Surgical History appendectomy Hospitalization History see above Hospitalization History sob, low 02 levels 06/21 18 07/2017 [employer] Other Summary Purpose Family History No Family [...] (BMI 30-39.9) Jignesh Saez MD [address] [place] [address] Referral ID Status Reason Start Date Expiration Date V isits Requested Visits Authorized [id number] Pending Review 1 1 Additional Source Comments INFORMATION SOURCE (unrecogn ized section and content) DATE CREATED AUTHOR 08/23/2017 [facility] DATE CREATED AUTHOR AUTHOR'S ORGANIZ ATION 07/18/2020 [facility] DATE CREATED AUTHOR AUTHOR'S ORGANIZ ATION 07/11/2022 [facility] DATE CREATED AUTHOR AUTHOR'S ORGANIZ ATION 11/08/2023 [facility] DATE CREATED AUTHOR AUTHOR'S ORGANIZ ATION 01/10/2024 [facility] Specialists EPIC REASON FOR VISIT (unrecogniz ed section and content) Reason Comments Follow-up 1 m Reason Comments Dermatochalasis Evaluation Reason Comments Follow-up Broken wrist Reason Comments Medicare Annual Wellness Visit Subsequen t Wellness Care Teams (unrecognized sec tion and content) [employer] Relationship Specialty Start Date End Date Jignesh Saez MD [address] [place] [phone] PCP - General Family Medicine 04/11/23 [employer] Specialty Start Date End Date Jignesh Saez MD [address] [place] [phone] PCP - General Family Medicine 04/11/23 [employer] Relationship Specialty Start Date End Date Jignesh Saez [address] [place] [phone] PCP - General Family Medicine 09/26/23 [employer] Relationship Specialty Start Date End Date Jignesh Saez MD [address] [place] [phone] PCP - General Family Medicine 04/11/23 [employer] Relationship Specialty Start Date End Date Jignesh Saez MD [address] [place] [phone] PCP - General Family Medicine 04/11/23 [employer] Relationship Specialty Start Date End Date Jignesh Saez MD [address] [place] [phone] PCP - General Family Medicine 04/11/23 [employer] Relationship Specialty Start Date End Date Jignesh Saez MD [address] [place] [phone] PCP - General Family Medicine 04/11/23 [employer] Relationship Specialty Start Date End Date Jignesh Saez MD [address] [place] [phone] PCP - General Family Medicine 04/11/23 Source Comments (unrecognize d section and content) In the event this informatio n is protected by the Federal Confidentiality of Alcohol and Drug Abuse Patient Records regulations: The Federal rules restrict any use of the information to criminally investigate or prosecute any alcohol or drug abuse patient.[facility] FOR RECORDS PERTAINING TO PATIENTS [...] BE BASED ON THE PRIMARY CLINICAL RECORDS. [employer] [facility]. provides no warranty or guarantee of the accuracy or completeness of information in this document.
== END 2024-02-03 08:23 | disposition home or self-care (01) ==
LOC: EC 08:23
PROVIDERS: PCP Family Medicine; Visit Provider Orthopaedic Surgery
DX: S52.612D Displaced fracture of left ulna styloid process, subsequent encounter for closed fracture with routine healing (principal); S52.572D Other intraarticular fracture of lower end of left radius, subsequent encounter for closed fracture with routine healing
CPT/HCPCS: 73110

== ENCOUNTER 2024-03-16 08:25 | Outpatient (OUT) | payer OTHER, BC, SELFPAY ==
--- NOTE | 2024-03-16 | XR_ITS ---
The [address] [address] Patient Name: RADHA ERNANDEZ MRN: [id number] date: 1955 Sex: F Assigned Patient Location: Current Patient Location: Accession/Order Number: [id number] Exam Date: 03/16/2024 08:26 Report Date: 03/16/2024 08:47 At the request of: ANUM BARRIENTOS Procedure: XR wrist LT min 3V PROCEDURE: XR wrist LT min 3V COMPARISON: 02/03/2024 HISTORY: LEFT WRIST PAIN FINDINGS: BONES:No acute fracture or dislocation. Remote healed distal radius fracture with internal fixation utilizing a plate plate and screws. Moderate degenerative changes with joint space narrowing SOFT TISSUES:Negative. No visible soft tissue swelling. EFFUSION:None visible. OTHER: Negative. XR/XR wrist LT min 3V IMPRESSION: Stable degenerative and postsurgical change Electronically authenticated by: AZAR STUART Date: 03/16/2024 08:47
--- OUTSIDE RECORDS SUMMARY | 2024-03-16 08:40 | XMS_ITS | CCD ---
Author Organization [facility] Providers Care Zinc Miner Name Role Phone PHYSICIAN, DEFAULT Unavailable Unavailable [...] Unavailable Jignesh Saez MD Primary Care Provider [phone] Jignesh Saez Primary Care Provider BRIEN WESTBROOK Referring Unavailab le JIGNESH SAEZ Primary Care Unavailable GIDEON RUELAS Attending Unavailable NADERER, JIGNESH Attending Unavailable NADERER, JIGNESH Attending Unavailable NADERER, JIGNESH Attending Unavailable NADERER, JIGNESH Attending Unavailable NADERER, JIGNESH Attending Unavailable NADEREKai, JIGNESH Attending Unavailable Medications Current Medications Medication Drug Class(es) Dates Sig (Normalized) Sig (Original) [id number] 200 actuat albuterol 0.09 mg/actuat metered dose [...] 01/07/2024 Active amLODIPine 10 mg oral tablet (14 sources) Dihydropyridine Calcium Channel Bree Start: 10-07-2023 [...] Ellipta Active cholecalciferol 0.05 mg oral tablet (13 sources) Vitamin D Start: 021 take 1 [...] omeprazole 40 mg delayed release oral capsule (13 sources) Proton Pump Inhibitor Start: 024 take [...] before meals. Do not crush or chew.. Active Omeprazole Activ e phentermine hydrochloride 37.5 mg oral tablet (2 sources) Sympathomimetic Amine Anorectic Start: 04-11-2023 End: 05-11-2023 take 1 tablet by mouth before mealtime phentermine (Adipex-P) 37.5 MG tablet Indications: Obesity (BMI 30-39.9) Take 1 tablet (37.5 mg) by mouth in the morning. Take before meals. 30 tablet 0 04/11/2023 05/11/2023 Active Trelegy Ellipta 200-62.5-25 MCG/ACT aerosol powder (12 sources) Start: 02-19-2023 take 1 puff(s) by inhalation in the morning Trelegy Ellipta 200-62.5-25 MCG/ACT aerosol powder Inhale 1 puff in the morning. 02/19/2023 Active Start: 02-19-2023 take 1 puff(s) by in halation in the morning Trelegy Ellipta 200-62.5-25 MCG/ACT aerosol powder Inhale 1 puff in the morning. 0 02/19/2023 Active varenicline 1 mg oral tablet (17 sources) Partial Cholinergic Nicotinic Agonist Start: 10-22-2023 [...] / neomycin 3.5 mg/ml / polymyxin b [id number] unt/ml ophthalmic suspension (1 source) Aminoglycoside Antibacterial, Polymyxin-class Antibacterial, Corticosteroid Start: 10-03-2016 take 2 drop(s) into the eye(s) three times daily Maxitrol [id number] 2 drops into affected eye Ophthalmic Three [...] Episodic/Chronic Chronic obstructive pulmonary disease and bronchiectasis (17 sources) Acute exacerbation of chronic obstructive airways disease; Translations: [Chronic obstructive pulmonary disease with (acute) exacerbation] Onset: 02-19-2023 02-19-2023 Chronic Diabetes mellitus without complication (15 sources) Prediabetes; Translations: [Prediabetes] Onset: 04-27-2022 02-19-2023 Episodic Diseases of white blood cells (12 sources) 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; Translations: [Other eosinophilia] Onset: 02-19-2023 02-19-2023 Chronic Disorders of lipid metabolism (15 sources) Hyperlipidemia, unspecified; Translations: [Dyslipidemia] Onset: 04-27-2022 02-19-2023 Chronic E Codes: Natural/environment (1 source) Bitten or stung by nonvenomous insect and other nonvenomous arthropods, initial encounter Episodic Esophageal disorders (12 sources) Gastroesophageal reflux disease; Translations: [Gastro-esophageal reflux disease without esophagitis] Onset: 02-19-2023 02-19-2023 Chronic Essential hypertension (19 sources) Essential (primary) hypertension; Translations: [Benign essential hypertension] Onset: 04-27-2022 02-19-2023 Chronic Fracture of upper limb (8 sources) Closed Colles' fracture; Translations: [Colles' fracture of left radius, subsequent encounter for closed fracture with routine healing] Onset: 12-10-2023 Resolved: 01-08-2024 12-10-2023 Episodic Nutritional deficiencies (16 sources) Vitamin D deficiency, unspecified; Translations: [Vitamin D deficiency] Onset: 04-24-2022 Chronic Osteoporosis (5 sources) Senile osteoporosis; Translations: [Age-related osteoporosis without current pathological fracture] Onset: 12-10-2023 01-07-2024 Chronic Other aftercare (1 source) Other parts counterman (current) drug therapy; Translations: [OTH FDC CURRENT DRUG THERAPY] Onset: 04-27-2022 Episodic Other aftercare (4 sources) Long-term current use of drug therapy; Translations: [Other parts counterman (current) drug therapy] Onset: 01-08-2024 01-08-2024 Episodic [...] Chronic Other nutritional; endocrine; and metabolic disorders (11 sources) Body mass index 25-29 - overweight; Translations: [Overweight] Onset: 04-11-2023 07-11-2023 Episodic Residual codes; unclassified (12 sources) Hypersomnia; Translations: [Hypersomnia, unspecified] Onset: 02-19-2023 02-19-2023 Chronic Residual codes; unclassified (4 sources) Postmenopausal state; Translations: [Asymptomatic menopausal state] Onset: 12-10-2023 12-10-2023 Episodic Past or Other Problems Problem Classification Problem Date Documented Da te Episodic/Chronic Mood disorders (2 sources) Mood disorders Onset: 01-08-2024 01-08-2024 Residual codes; unclassified (14 sources) Edema of lower extremity; Translations: [Localized edema] Onset: 02-19-2023 02-19-2023 Episodic Residual codes; unclassified (14 sources) Tobacco user; Translations: [Tobacco use] Onset: 02-19-2023 02-19-2023 Episodic Results Test Name Value Interpretation Reference Range Facility ALL CBC WITH AUTO DIFFon BASOPHILS ABSOLUTE AUTO 0.0 [facility] Basophils/100 WBC (Bld) 0.3 % 0.2 - 2.0 % [facility] Eosinophils/100 WBC (Bld) 3.2 % 0.9 - 7.0 % [facility] Erythrocyte distribution width (RBC) [Ratio] 12.6 % 11.0 - 15.0 % [facility] Hematocrit (Bld) [Volume fraction] 47.2 % 36.0 - 48.0 % [facility] Hem[facility] (Bld) [Mass/Vol] 16.1 g/dL High 12.0 - 16.0 g/dL [facility] IMMATURE GRANULOCYTES ABS AUTO 0.02 [facility] Immature granulocytes/100 WBC (Bld) 0.2 % 0.0 - 0.5 % [facility] Interpretation and review of laboratory results Abnormal [facility] LYMPHOCYTES ABSOLUTE AUTO 3.9 High [facility] Lymphocytes/100 WBC (Bld) 39.7 % 20.5 - 60.0 % [facility] MCH (RBC) [Entitic mass] 32.1 pg 26.7 - 34.0 pg [facility] MCHC (RBC) [Mass/Vol] 34.1 g/dL 29.9 - 35.2 g/dL [facility] MCV (RBC) [Entitic vol] 94.2 fL 81.0 - 99.0 fL [facility] MONOCYTES ABSOLUTE AUTO 0.8 [facility] Monocytes/100 WBC (Bld) 8.2 % 1.7 - 12.0 % [facility] NEUTROPHILS ABSOLUTE AUTO 4.7 [facility] Neutrophils/100 WBC (Bld) 48.4 % 43.0 - 75.0 % [facility] Platelet mean volume (Bld) [Entitic vol] 10.4 fL 9.5 - 13.5 fL [facility] are [facility] EO # 0.3 [facility] RBC 5.01 [facility] WBC 9.7 [facility] e ALL BASIC METABOLIC PANELon 11-20-2023 Anion gap [Moles/Vol] 11.6 mmol/L NO [facility] Calcium [Mass/Vol] 8.7 mg/dL 8.5 - 10. 1 mg/dL [facility] Chloride [Moles/Vol] 108 mmol/L High 98 - 10 7 mmol/L [facility] CO2 [Moles/Vol] 27.6 mmol/L 21.0 - 32.0 mmol/L [facility] Creatinine [Mass/Vol] 0.72 mg/dL 0.55 - 1.02 mg/dL [facility] GFR/1.73 sq M.predicted CKD-EPI (S/P/Bld) [Vol rate/Area] >60 60 - PINF [facility] Glucose [Mass/Vol] 114 mg/dL High 74 - 106 mg/dL NO [facility] Interpretation and review of laboratory results Abnormal [facility] Potassium [Moles/Vol] 4.2 mmol/L 3.5 - 5.1 mmol/L [facility] Sodium [Moles/Vol] 143 mmol/L 136 - 145 mmol/L [facility] EGFR-NON AF MALDIVIAN >60 60 - PINF [facility] Urea nitrogen [Mass/Vol] 15.0 mg/dL 7.0 - 18.0 mg/dL [facility] Urea nitrogen/Creatinine [Mass ratio] 20.8 mg/mg [facility] e ALL CBC WITH AUTO DIFFon BASOPHILS ABSOLUTE AUTO 0.0 [facility] Basophils/100 WBC (Bld) 0.5 % 0.2 - 2.0 % [facility] Eosinophils/100 WBC (Bld) 3.5 % 0.9 - 7.0 % [facility] Erythrocyte distribution width (RBC) [Ratio] 12.1 % 11.0 - 15.0 % [facility] Hematocrit (Bld) [Volume fraction] 41.9 % 36.0 - 48.0 % [facility] e Hemoglobin (Bld) [Mass/Vol] 14.0 g/dL 12.0 - 16.0 g/dL [facility] IMMATURE GRANULOCYTES ABS AUTO 0.02 [facility] Immature granulocytes/100 WBC (Bld) 0.2 % 0.0 - 0.5 % [facility] LYMPHOCYTES ABSOLUTE AUTO 3.0 [facility] Lymphocytes/100 WBC (Bld) 36.2 % 20.5 - 60.0 % [facility] MCH (RBC) [Entitic mass] 31.8 pg 26.7 - 34.0 pg [facility] MCHC (RBC) [Mass/Vol] 33.4 g/dL 29.9 - 35.2 g/dL [facility] MCV (RBC) [Entitic vol] 95.2 fL 81.0 - 99.0 fL [facility] MONOCYTES ABSOLUTE AUTO 0.7 [facility] Monocytes/100 WBC (Bld) 8.7 % 1.7 - 12.0 % [facility] NEUTROPHILS ABSOLUTE AUTO 4.2 [facility] Neutrophils/100 WBC (Bld) 50.9 % 43.0 - 75.0 % [facility] Platelet mean volume (Bld) [Entitic vol] 10.2 fL 9.5 - 13.5 fL [facility] are [facility] EO # 0.3 [facility] PLT 311 [facility] RBC 4.40 [facility] WBC 8.2 [facility] EXTERNAL PHOTOS OU (BOTH EYE S)on 10-09-2023 [facility] Radiology Study observation (narrative) [facility] PTOSIS VISUAL FIELD OU (BOTH EYES)on 10-09-2023 [facility] Radiology Study observation (narrative) [facility] CBC AUTO DIFFon 04-24-2022 BASO # 0.1 103/ul Normal 0.0-0.1 [facility] Comment on above: Performed By: #### C BC #### [facility] [address] [place], [place] [address] Dr. Brigette Peñaloza Basophils/100 WBC (Bld) 0.7 % Normal 0.2-2.0 [facility] Comment on above: Performed By: #### C BC #### [facility] [address] [place], [place] [address] Dr. Brigette Peñaloza EO # 0.3 103/ul Normal 0.0-0.7 [facility] Comment on above: Performed By: #### C BC #### [facility] [address] [place] [address] Dr. Brigette Peñaloza Eosinophils/100 WBC (Bld) 4.9 % Normal 0.9-7.0 [facility] Comment on above: Performed By: #### C BC #### [facility] [address] [place] [address] Dr. Brigette Peñaloza Erythrocyte distribution width (RBC) [Ratio] 12.7 % Normal 11.0-15.0 [facility] Comment on above: Performed By: #### C BC #### [facility] [address] [place] [address] Dr. Brigette Peñaloza Hematocrit (Bld) [Volume fraction] 48.0 % Normal 36.0-48.0 [facility] Comment on above: Performed By: #### C BC #### [facility] [address] [place] [address] Dr. Brigette Peñaloza Hemoglobin (Bld) [Mass/Vol] 16.1 g/dL Critically high 12.0-16.0 [facility] Comment on above: Performed By: #### C BC #### [facility] [address] [place] [address] Dr. Brigette Peñaloza IG # 0.02 10e3/ul Normal 0.00-0.03 [facility] Comment on above: Performed By: #### C BC #### [facility] [address] [place] [address] Dr. Birgette Peñaloza IG % 0.3 % Normal 0.0-0.5 [facility] Comment on above: Performed By: #### C BC #### [facility] [address] [place] [address] Dr. Brigette Peñaloza LYMPH # 2.7 103/ul Normal 1.2-3.8 [facility] Comment on above: Performed By: #### C BC #### [facility] [address] [place] [address] Dr. Brigette Peñaloza Lymphocytes/100 WBC (Bld) 39.2 % Normal 20.5-60.0 [facility] Comment on above: Performed By: #### C BC #### [facility] [address] [place] [address] Dr. Brigette Peñaloza MANUAL DIFF REQ NO Normal [facility] Comment on above: Performed By: #### C BC #### [facility] [address] [place] [address] Dr. Brigette Peñaloza MCH (RBC) [Entitic mass] 30.3 pg Normal 26.7-34.0 [facility] Comment on above: Performed By: #### C BC #### [facility] [address] [place] [address] Dr. Brigette Peñaloza MCHC (RBC) [Mass/Vol] 33.5 g/dL Normal 29.9-35.2 [facility] Comment on above: Performed By: #### C BC #### [facility] [address] [place] [address] Dr. Brigette Peñaloza MCV (RBC) [Entitic vol] 90.4 fL Normal 81.0-99.0 [facility] Comment on above: Performed By: #### C BC #### [facility] [address] [place] [address] Dr. Brigetet Peñaloza MONO # 0.7 103/ul Normal 0.3-0.8 [facility] Comment on above: Performed By: #### C BC #### [facility] [address] [place] [address] Dr. Brigette Peñaloza Monocytes/100 WBC (Bld) 9.9 % Normal 1.7-12.0 [facility] Comment on above: Performed By: #### C BC #### [facility] [address] [place] [address] Dr. Brigette Peñaloza NEUT # 3.1 103/ul Normal 1.4-6.5 [facility] Comment on above: Performed By: #### C BC #### [facility] [address] [place] [address] Dr. Brigette Peñaloza Neutrophils/100 WBC (Bld) 45.0 % Normal 43.0-75.0 [facility] Comment on above: Performed By: #### C BC #### [facility] [address] [place] [address] [address] Brigette Peñaloza Platelet mean volume (Bld) [Entitic vol] 10.2 fL Normal 9.5-13.5 [facility] Comment on above: Performed By: #### C BC #### [facility] [address] [place] [address] Dr. Brigette Peñaloza PLT 283 103/ul Normal 150-450 [facility] Comment on above: Performed By: #### C BC #### [facility] [address] [place] [address] [address] Brigette Peñaloza RBC 5.31 106/ul Normal 4.20-5.40 [facility] Comment on above: Performed By: #### C BC #### [facility] [address] [place] [address] Dr. Brigette Peñaloza WBC 7.0 103/ul Normal 4.0-11.0 [facility] Comment on above: Performed By: #### C BC #### [facility] [address] [place] [address] Dr. Brigette Peñaloza GLYCOHEMOGLOBIN A1Con 2022 ADA RECOMMENDATION SEE BELOW Normal [facility] Comment on above: Result Comment: ADA RECOMMENDED LIMIT 4.0 - 6.0 ADA THERAPEUTIC TARGET < 7.0 ACTION SUGGESTED > 7.0 Performed By: #### A 1C #### [facility] [address] [place] [address] Dr. Brigette Peñaloza Glucose [Mass/Vol] 117 mg/dL Normal [facility] Comment on above: Performed By: #### A 1C #### [facility] [address] [place] [address] Dr. Brigette Peñaloza HbA1c (Bld) [Mass fraction] 5.7 % Normal 4.5-6.2 [facility] Comment on above: Performed By: #### A 1C #### [facility] [address] [place] [address] Dr. Brigette Peñaloza LIPID PROFILEon 04-24-2022 CHOL-HDL RATIO NORM SEE BELOW Normal [facility] Comment on above: Result Comment: 3.3 - 4.4 LOW RISK 4.4 - 7.1 AVERAGE RISK 7.1 - 11.0 MODERATE RISK >11.0 HIGH RISK Performed By: #### L IPID, TSH, LIVER, BMP #### [facility] [address] [place] [address] [address] Brigette Peñaloza Cholesterol [Mass/Vol] 187 mg/dL Normal <=200 [facility] Comment on above: Performed By: #### L IPID, TSH, LIVER, BMP #### [facility] [address] [place] [address] [address] Brigette Peñaloza Cholesterol in HDL [Mass/Vol] 54 mg/dL Normal 40-60 [facility] Comment on above: Performed By: #### L IPID, TSH, LIVER, BMP #### [facility] [address] [place] [address] Dr. Brigette Peñaloza Cholesterol in LDL [Mass/Vol] 105.6 mg/dL Normal [facility] Comment on above: Performed By: #### L IPID, TSH, LIVER, BMP #### [facility] [address] [place] [address] Dr. Brigette Peñaloza Cholesterol.total/Cho lesterol in HDL [Mass ratio] 3.5 {ratio} Normal [facility] Comment on above: Performed By: #### L IPID, TSH, LIVER, BMP #### [facility] [address] [place] [address] Dr. Brigette Peñaloza HDL NORMAL > or = 60 mg/dl - LOW CARDIOVASCULAR RISK <40 mg/dl - HIGH CARDIOVASCULAR RISK Normal [facility] Comment on above: Performed By: #### L IPID, TSH, LIVER, BMP #### [facility] [address] [place] [address] Dr. Brigette Peñaloza LDL CALC NORMAL SEE BELOW Normal [facility] Comment on above: Result Comment: <100 mg/dl OPTIMAL 100 - 129 mg/dl NEAR OR ABOVE OPTIMAL 130 - 159 mg/dl BORDERLINE HIGH 160 - 189 mg/dl HIGH >190 mg/dl VERY HIGH Performed By: #### L IPID, TSH, LIVER, BMP #### [facility] [address] [place] [address] Dr. Brigette Peñaloza Triglyceride [Mass/Vol] 137 mg/dL Normal <=150 [facility] Comment on above: Performed By: #### L IPID, TSH, LIVER, BMP #### [facility] [address] [place] [address] [address] Brigette Peñaloza VLDL CALC 27.4 mg/dL Normal [facility] Comment on above: Performed By: #### L IPID, TSH, LIVER, BMP #### [facility] [address] [place] [address] [address] Brigette Peñaloza LIVER PROFILEon 04-24-2022 Albumin [Mass/Vol] 3.6 g/dL Normal 3.4-5.0 [facility] Comment on above: Performed By: #### L IPID, TSH, LIVER, BMP #### [facility] [address] [place] [address] [address] Brigette Peñaloza Albumin/Globulin [Mass ratio] 1.0 {ratio} Normal [facility] Comment on above: Performed By: #### L IPID, TSH, LIVER, BMP #### [facility] [address] [place] [address] [address] Brigette Peñaloza ALP [Catalytic activity/Vol] 97 U/L Normal 46-116 [facility] Comment on above: Performed By: #### L IPID, TSH, LIVER, BMP #### [facility] [address] [place] [address] Dr. Brigette Peñaloza ALT [Catalytic activity/Vol] 41 U/L Normal 14-59 [facility] Comment on above: Performed By: #### L IPID, TSH, LIVER, BMP #### [facility] [address] [place] [address] [address] Brigette Peñaloza AST [Catalytic activity/Vol] 24 U/L Normal 15-37 [facility] Comment on above: Performed By: #### L IPID, TSH, LIVER, BMP #### [facility] [address] [place] [address] [address] Brigette Peñaloza BILI, CONJUGATED 0.1 mg/dL Normal 0.0-0.2 [facility] Comment on above: Performed By: #### L IPID, TSH, LIVER, BMP #### [facility] [address] [place] [address] Dr. Brigette Peñaloza Bilirubin [Mass/Vol] 0.3 mg/dL Normal 0.2-1.0 [facility] Comment on above: Performed By: #### L IPID, TSH, LIVER, BMP #### [facility] [address] [place] [address] Dr. Brigette Peñaloza Globulin (S) [Mass/Vol] 3.5 g/dL Normal [facility] Comment on above: Performed By: #### L IPID, TSH, LIVER, BMP #### [facility] [address] [place] [address] Dr. Brigette Peñaloaz Protein [Mass/Vol] 7.1 g/dL Normal 6.4-8.2 [facility] Comment on above: Performed By: #### L IPID, TSH, LIVER, BMP #### [facility] [address] [place] [address] Dr. Brigette Peñaloza PROF CHEM 8 (BAS METB)on Anion gap [Moles/Vol] 8.7 mmol/L Normal [facility] Comment on above: Performed By: #### L IPID, TSH, LIVER, BMP #### [facility] [address] [place] [address] Dr. Brigette Peñaloza Calcium [Mass/Vol] 9.1 mg/dL Normal 8.5-10.1 [facility] Comment on above: Performed By: #### L IPID, TSH, LIVER, BMP #### [facility] [address] [place] [address] Dr. Brigette Peñaloza Chloride [Moles/Vol] 106 mmol/L Normal 98-107 [facility] Comment on above: Performed By: #### L IPID, TSH, LIVER, BMP #### [facility] [address] [place] [address] Dr. Brigette Peñaloza CO2 [Moles/Vol] 29.7 mmol/L Normal 21.0-32.0 [facility] Comment on above: Performed By: #### L IPID, TSH, LIVER, BMP #### [facility] [address] [place] [address] [address] Brigette Peñaloza Creatinine [Mass/Vol] 0.81 mg/dL Normal 0.55-1.02 [facility] Comment on above: Performed By: #### L IPID, TSH, LIVER, BMP #### [facility] [address] [place] [address] [address] Brigette Peñaloza EGFR-AF MALDIVIAN >60 Normal >=60 [facility] Comment on above: Performed By: #### L IPID, TSH, LIVER, BMP #### [facility] [address] [place] [address] [address] Brigette Peñaloza EGFR-NON AF MALDIVIAN >60 Normal >=60 [facility] Comment on above: Performed By: #### L IPID, TSH, LIVER, BMP #### [facility] [address] [place] [address] [address] Brigette Peñaloza Glucose [Mass/Vol] 114 mg/dL Critically high 74-106 [facility] Comment on above: Performed By: #### L IPID, TSH, LIVER, BMP #### [facility] [address] [place] [address] [address] Brigette Peñaloza Potassium [Moles/Vol] 4.4 mmol/L Normal 3.5-5.1 [facility] Comment on above: Performed By: #### L IPID, TSH, LIVER, BMP #### [facility] [address] [address] [address] Brigette Peñaloza Sodium [Moles/Vol] 140 mmol/L Normal 136-145 [facility] Comment on above: Performed By: #### L IPID, TSH, LIVER, BMP #### [facility] [address] [place] [address] [address] Brigette Peñaloza Urea nitrogen [Mass/Vol] 9.0 mg/dL Normal 7.0-18.0 [facility] Comment on above: Performed By: #### L IPID, TSH, LIVER, BMP #### [facility] [address] [place] [address] [address] Brigette Peñaloza Urea nitrogen/Creatinine [Mass ratio] 11.1 mg/mg Normal [facility] Comment on above: Performed By: #### L IPID, TSH, LIVER, BMP #### [facility] [address] [place] [address] Dr. Brigette Peñaloza TSHon 04-24-2022 TSH 1.598 uIU/mL Normal 0.358-3.740 [facility] Comment on above: Performed By: #### L IPID, TSH, LIVER, BMP #### [facility] [address] [place] [address] Dr. Brigette Peñaloza VITAMIN D 25 OHon 04-24-2022 VIT D 25-OH 50.4 ng/mL Normal [facility] Comment on above: Performed By: #### V ITAD #### [facility] [address] [place] [address] Dr. Brigette Peñaloza VIT D RANGES SEE BELOW Normal [facility] Comment on above: Result Comment: <20 ng/mL Vit D deficient 20 - <30 ng/mL Vit D insufficient 30 - 100 ng/mL Vit D sufficient >100 ng/mL Potential Toxicity Performed By: #### V ITAD #### [facility] [address] [place] [address] Dr. Brigette Peñaloza Vital Signs Date Time Vital Sign Value Performing Clinician Facility 01-08-2024 11:05-0500 Body height 167.6 cm Jignesh Saez MD Work Phone: [facility] 01-08-2024 11:05-0500 Body mass index (BMI) [Ratio] 29.05 kg/m2 Jignesh Saez MD Work Phone: [facility] 01-08-2024 11:05-0500 Body temperature 96.01 [degF] Jignesh Saez MD Work Phone: [facility] 01-08-2024 11:05-0500 Body weight 81.65 kg Jignesh Saez MD Work Phone: [facility] 01-08-2024 11:05-0500 Diastolic blood pressure 74 mm[Hg] Jignesh Saez MD Work Phone: [facility] 01-08-2024 11:05-0500 Heart rate 82 /min Jignesh Saez MD Work Phone: [facility] 01-08-2024 11:05-0500 Respiratory rate 22 /min Jignesh Saez MD Work Phone: [facility] 01-08-2024 11:05-0500 SaO2% (BldA) [Mass fraction] 92 % Jignesh Saez MD Work Phone: [facility] 01-08-2024 11:05-0500 Systolic blood pressure 126 mm[Hg] Jignesh Saez MD Work Phone: [facility] 12-10-2023 14:06-0400 Body height 167.6 cm Jignesh Saez MD Work Phone: [facility] 12-10-2023 14:06-0400 Body mass index (BMI) [Ratio] 28.08 kg/m2 Jignesh Saez MD Work Phone: [facility] 12-10-2023 14:06-0400 Body temperature 95.7 [degF] Jignesh Saez MD Work Phone: [facility] 12-10-2023 14:06-0400 Body weight 78.93 kg Jignesh Saez MD Work Phone: [facility] 12-10-2023 14:06-0400 Diastolic blood pressure 66 mm[Hg] Jignesh Saez MD Work Phone: [facility] 12-10-2023 14:06-0400 Heart rate 31 /min Jignesh Saez MD Work Phone: [facility] 12-10-2023 14:06-0400 Respiratory rate 22 /min Jignesh Saez MD Work Phone: [facility] 12-10-2023 14:06-0400 SaO2% (BldA) [Mass fraction] 93 % Jignesh Saez MD Work Phone: [facility] 12-10-2023 14:06-0400 Systolic blood pressure 110 mm[Hg] Jignesh Saez MD Work Phone: [facility] 04-11-2023 13:13-0500 Body height 167.6 cm Jignesh Saez MD Work Phone: [facility] 04-11-2023 13:13-0500 Body mass index (BMI) [Ratio] 29.7 kg/m2 Jignesh Saez MD Work Phone: [facility] 04-11-2023 13:13-0500 Body temperature 97.3 [degF] Jignesh Saez MD Work Phone: [facility] 04-11-2023 13:13-0500 Body weight 83.46 kg Jignesh Saez MD Work Phone: [facility] 04-11-2023 13:13-0500 Diastolic blood pressure 70 mm[Hg] Jignesh Saez MD Work Phone: [facility] 04-11-2023 13:13-0500 Heart rate 80 /min Jignesh Saez MD Work Phone: [facility] 04-11-2023 13:13-0500 SaO2% (BldA) [Mass fraction] 95 % Jignesh Saez MD Work Phone: [facility] 04-11-2023 13:13-0500 Systolic blood pressure 130 mm[Hg] Jignesh Saez MD Work Phone: [facility] 05-13-2022 15:30-0400 Body height 165.74 cm Rivka Reyez Other [employer] Other 05-13-2022 15:30-0400 Body mass index (BMI) [Ratio] 30.45 kg/m2 Rivka Reyez Other [employer] Other 05-13-2022 15:30-0400 Body temperature 98.9 [degF] Rivka Reyez Other [employer] Other 05-13-2022 15:30-0400 Body weight 83.64 kg Rivka Reyez Other [employer] Other 05-13-2022 15:30-0400 Diastolic blood pressure 69 mm[Hg] Rivka Reyez Other [employer] Other 05-13-2022 15:30-0400 SaO2% (BldA) [Mass fraction] 93 % Rivka Reyez Other [employer] Other 05-13-2022 15:30-0400 Systolic blood pressure 116 mm[Hg] Rivka Reyez Other [employer] Other Encounters Encounter Date Encounter Type Care Provider Facility Start: 01-08-2024 End: 01-08-2024 [facility] Jignesh Saez MD Work Phone: [facility] Start: 01-08-2024 End: 01-08-2024 [facility] Saez MD Work Phone: [facility] Start: 01-08-2024 End: 01-08-2024 Patient encounter procedure Jignesh Saez MD Work Phone: [facility] Work Phone: Start: 01-08-2024 End: 01-08-2024 [...] (BMI 25.0-29.9) Start: 01-08-2024 End: 01-08-2024 ambulatory JIGNESH ASEZ Not Available Start: 01-07-2024 End: 01-07-2024 Orders [...] End: 12-10-2023 Office outpatient visit 15 minutes Jigensh Saez MD Work Phone: [facility] Comment on above: Closed 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); Essential hypertension, benign (CMS/HCC); Postmenopausal Start: 12-10-2023 End: 12-10-2023 ambulatory JIGNESH SAEZ Not Available Start: 11-25-2023 End: 11-25-2023 Clinisync Result Encounter Generic External Data Provider [facility] External Department Unsolicited Start: 11-25-2023 End: 11-25-2023 Clinisync Result Encounter Generic External Data Provider [facility] External Department Unsolicited Start: 11-20-2023 End: 11-20-2023 Clinisync Result Encounter Generic External Data Provider [facility] External Department Unsolicited Start: 11-20-2023 End: 11-20-2023 Clinisync Result Encounter Generic External Data Provider [facility] External Department Unsolicited Start: 10-09-2023 End: 10-09-2023 ambulatory BRIEN WESTBROOK Facility:[facility] Start: 10-09-2023 End: 10-09-2023 Office outpatient new 45 minutes Gideon Ruelas MD Work Phone: Ophthalmology Comment on above: Ptosis of both eyeli ds (Primary Dx) Start: 07-11-2023 End: 07-11-2023 ambulatory JIGNESH SAEZ Not Available Start: 05-07-2023 End: 05-07-2023 ambulatory JIGNESH SAEZ Not Available Start: 04-11-2023 [employer]sheet Jignesh Saez MD Work Phone: [facility] Start: 04-11-2023 [employer]ulk[employer] flowsheet Jignesh Saez MD Work Phone: [facility] [...] 05-13-2022 End: 05-13-2022 ambulatory Rivka Reyez Other [employer] Other Start: 05-13-2022 Office outpatient ne w 20 minutes Rivka Reyez [facility] Start: 04-24-2022 End: 04-25-[address] JIGNESH SAEZ Facility:[facility] Start: 09-27-2021 End: 09-27-[address] JIGNESH SAEZ Facility:[facility] Start: 07-17-2020 End: 07-18-2020 ambulatory UNKNOWN PROVIDER Facility:[facility] Start: 04-19-2017 End: 04-20-2017 Ambulatory DEFAULT PHYSICIAN Facility:[facility] Procedures Date Procedure Procedure Detail Performing Clinician Start: 11-25-2023 ALL CBC WITH AUTO DIFF Generic External Data Provider Start: 11-20-2023 ALL BASIC METABOLIC PANEL Generic External Data Provider Start: 11-20-2023 ALL CBC WITH AUTO DIFF Generic External Data Provider Start: 10-09-2023 End: 10-09-2023 Xtrnl ocular photog w/i&r docmt medical progre Gideon Ruelas MD Work Phone: Start: 02-28-2023 Mammography Jignesh nowak MD Work Phone: Start: 10-09-2018 Colonoscopy Jignesh nowak MD Work Phone: Plan of Treatment Date Care Activity Detail Author Start: 10-09-2028 Screening for malign ant neoplasm of colon [facility] Start: 02-29-2024 Screening for malign ant neoplasm of breast Mammogram [facility] Start: 02-20-2024 End: 02-20-2024 Patient encounter procedure 02/20/2024 10:00 AM EST Office Visit [facility] [address] [place] [address] Jignesh Saez MD [address] [place] [phone] [facility] Start: 01-08-2024 End: 01-07-2025 Basic metabolic 1998 panel - Serum or Plasma Basic metabolic panel Lab Routine Essential hypertension, benign (CMS/HCC) Expected: 01/08/2024 (Approximate), Expires: 01/07/2025 [facility] Comment on above: Expected: 01/08/2024 (Approximate), Expires: 01/07/2025 Start: 01-08-2024 End: 01-07-2025 CBC W Auto Differential panel - Blood CBC and differential Lab Routine Encounter for long-term (current) use of medications Expected: 01/08/2024 (Approximate), Expires: 01/07/2025 [facility] Comment on above: Expected: 01/08/2024 (Approximate), Expires: 01/07/2025 Start: 01-08-2024 End: 01-07-2025 Hemoglobin A1c/Hemoglobin.total in Blood Hemoglobin A1c Lab Routine Prediabetes Expected: 01/08/2024 (Approximate), Expires: 01/07/2025 [facility] Work Phone: Comment on above: Expected: 01/08/2024 (Approximate), Expires: 01/07/2025 Start: 01-08-2024 End: 01-07-2025 Hepatic function 2000 panel - Serum or Plasma Hepatic function panel Lab Routine Encounter for long-term (current) use of medications Expected: 01/08/2024 (Approximate), Expires: 01/07/2025 [facility] Comment on above: Expected: 01/08/2024 (Approximate), Expires: 01/07/2025 Start: 01-08-2024 End: 01-07-2025 Lipid 1996 panel - Serum or Plasma Lipid panel Lab Routine Dyslipidemia (CMS/HCC) Expected: 01/08/2024 (Approximate), Expires: 01/07/2025 [facility] Comment on above: Expected: 01/08/2024 (Approximate), Expires: 01/07/2025 Start: 01-08-2024 End: 01-07-2025 Thyrotropin [Units/volume] in Serum or Plasma TSH Lab Routine Prediabetes Overweight (BMI 25.0-29.9) Expected: 01/08/2024 (Approximate), Expires: 01/07/2025 [facility] Comment on above: Expected: 01/08/2024 (Approximate), Expires: 01/07/2025 Start: 01-08-2024 End: 01-08-2024 Patient encounter procedure [facility] Comment on above: Arrived Start: 12-10-2023 End: 12-09-2024 DXA Skeletal system Views for bone density DEXA bone density Imaging Routine Postmenopausal Expected: 12/10/2023, Expires: 12/09/2024 [facility] Work Phone: Comment on above: Expected: 12/10/2023 , Expires: 12/09/2024 Start: 12-10-2023 End: 12-10-2023 Patient encounter procedure [facility] Comment on above: Arrived Start: 11-03-2023 Influenza vaccination Influenza Vacc ine (#1) [facility] Start: 05-07-2023 End: 05-07-2023 Patient encounter procedure 05/07/2023 9:15 AM EST Office Visit [facility] [address] [place] [id number] Jignesh Saez MD [address] [place] [phone] [facility] Start: 03-04-2023 Advance Directive Discussion Advance Directive Discussion [facility] Start: 11-02-2022 Covid-19 Vaccine ( season) Covid-19 Vaccine ( season) [facility] Start: 11-02-2022 Influenza vaccination Influenza Vacc ine (#1) [facility] Start: 05-05-2019 Pneumococcal Vaccine : 65+ (1 of 1 - PCV) Pneumococcal Vaccine: 65+ (1 of 1 - PCV) [facility] Start: 05-05-2019 Screening for osteoporosis Bone Density Screening [facility] Start: 2014 RSV Vaccine (1 - 1-d ose 60+ series) RSV Vaccine (1 - 1-dose 60+ series) [facility] Start: 2004 Shingrix Vaccine (1 of 2) Shingrix Vaccine (1 of 2) [facility] Start: 05-05-1999 Diabetes Screening Diabetes Screenin g [facility] Start: 05-05-1999 Lipid panel Lipid Screening [facility] Start: 05-05-1999 Screening for malign ant neoplasm of colon [facility] Start: 1994 Screening for malign ant neoplasm of breast Mammogram Screening [facility] Start: 1973 Urine microalbumin profile DTaP,Tdap,Td Vaccine (1 - Tdap) [facility] Start: 1972 Anxiety Screening Anxiety Screening [facility] Start: 1972 Depression Screening Depression Scre ening [facility] Start: 1972 Hepatitis C screening Hepatitis C Sc francy [facility] Start: 1960 Pneumococcal Vaccine : 65+ Years (1 - PCV) Pneumococcal Vaccine: 65+ Years (1 - PCV) [facility] Start: 1960 Pneumococcal Vaccine : 65+ Years (1 of 2 - PCV) Pneumococcal Vaccine: 65+ Years (1 of 2 - PCV) [facility] Start: 1954 Medicare Annual Wellness (AWV) Medicare Annual Wellness (AWV) [facility] Start: 1954 Screening for malign ant neoplasm of colon [facility] Payers Date Payer Category Payer Medicare [employer] MEDIC[employer] E [employer] BY JO [id number] 2023-Present [address] [place] [address] [id number] 2023 Medicare (Managed Care) [facility] MEDICARE [id number] 2023 Medicare [id number] 2019 [facility] Blue [facility] BCBS [id number] 2019 Unknown 1959 [employer] [place] [employer] [id number] 1959 Medicare [id number] 1954 Unknown [id number] [id number] 1954 Unknown [id number] [id number] 1954 Unknown [id number] [id number] 1954 Unknown [id number] [id number] 1954 Unknown [id number] 2.9 1954 Unknown [id number]. 2.9 1954 Unknown [id number] [id number]. 2.9 1954 Unknown [id number]. 2.9 1954 Unknown [id number] Social History Date Type Detail Facility Unknown if ever smoked [employer] Other Start: 02-19-2023 End: 07-11-2023 Sex Assigned At [employer] Other Start: 02-19-2023 End: 10-09-2023 Tobacco smoking status [facility] Ex-smoker [facility] End: 06-09-2017 History of tobacco use Current smoker [facility] End: 06-09-2017 History of tobacco use Cigarette Smoker [facility] Start: 02-19-2023 End: 07-11-2023 Cigarettes smoked current (pack per day) - Reported 0.3 [facility] Start: 02-19-2023 End: 10-09-2023 Tobacco use and exposure Smokeless tobacco non-user [facility] Start: 1955 Sex Assigned At Not on file N [facility] Start: 10-09-2023 Alcohol intake Current drinke r of alcohol (finding) [facility] National Score (1-100), lower number is lower risk 80 [facility] Start: 10-09-2023 Alcohol Comment occasional [facility] Clinical Notes 05-13-2022 to 01-08-2024 Jignesh Saez [...] Associated Problem(s): COPD (chronic obstructive pulmonary disease) ([facility]) Breathing stable and continue trelegy. Use albuterol [...] Hepatic function panel documented in this encounter [facility] 12-10-2023 History of Present illness Narrative [...] DEXA bone density documented in this encounter [facility] 10-09-2023 Note Date of Procedure 10/09/2023. Notes Bilateral upper eyelid ptosis with brow ptosis, dermatochalasis, skin on lashes temporally. [facility] 10-09-2023 Note Date of Procedure 10/09/2023. [employer] Information Right Eye Difference between Bishop visual field results of lids tapped and untaped 15. Left Eye Difference between Bishop visual field results of lids tapped and untaped 15. Interpretation Right Eye Decreased superior visual field. Left Eye Decreased superior visual field. [facility] 10-09-2023 Instructions Gideon Ruelas MD - 10/09/2023 [...] pressure 10-15 min documented in this encounter [facility] 10-09-2023 Note HNO ID: [id number] Author: GIDEON RUELAS MD Service: ? Author Type: Fellow Type: Progress Notes Filed: 11/06/2023 15:39 Note Text: History: Pepper Lacy is a 68 year old woman with history of droopy eyelids, now bothersome for the past year. She was referred by her flooring machine feeder Dr. Westbrook for dermatochalasis. She is most [...] others. I have seen and examined Pepper Regino. I also have reviewed and agree with [...] the above, please contact me directly at [phone]. Gideon Ruelas MD [facility] 10-09-2023 History of Present illness Narrative History: Pepper Lacy is a 68 year old woman with history of droopy eyelids, now bothersome for the past year. She was referred by her flooring machine feeder Dr. Westbrook for dermatochalasis. She is most [...] 1 year prn. documented in this encounter [facility] 04-11-2023 History of Present illness Narrative Associated [...] 37.5 MG tablet documented in this encounter [facility] 05-13-2022 Evaluation note Encounter Date Diagnosis Assessment Notes May, Bug bite, initial encounter (ICD-10 - W57.XXXA) Take medications as directed. Complete all doses. Unable to determine what type of insect cause bites. . Follow up with primary care provider if no improvement of symptoms with treatment plan [employer] Other Evaluation note* Diagnosis Essential hypertension, benign (CMS/HCC)- Primary Essential hypertension, benign Chronic obstructive pulmonary disease, unspecified COPD type (CMS/HCC) Tobacco user Tobacco use disorder Obesity (BMI 30-39.9) Lower extremity edema Edema [facility] Diagnosis Ptosis of both eyelids- Primary Unspecified ptosis of eyelid [facility] Closed Colles' fracture of left radius with routine healing- Primary Essential hypertension, benign (CMS/HCC) Essential hypertension, benign Postmenopausal Asymptomatic postmenopausal status (age-related) (natural) [facility] Diagnosis Essential hypertension, benign (CMS/HCC)- Primary [...] fracture (CMS/HCC)- Primary documented in this encounter [facility]* Diagnosis Essential hypertension, benign (CMS/HCC)- [...] (BMI 25.0-29.9) Overweight documented in this encounter [facility] HealthcareHistory general Narrative - Reported* Type Description Date Medical History Esophageal reflux Medical History Hypertension Medical History Chronic bronchitis Surgical History tubal Surgical History appendectomy Hospitalization History see above Hospitalization History sob, low 02 levels 06/21 18 07/2017 [employer] Other Summary Purpose Family History No Family [...] 30-39.9) Jignesh Saez MD [address] [place] [address] Referral ID Status Reason Start Date Expiration Date V isits Requested Visits Authorized [id number] Pending Review 1 1 Additional Source Comments INFORMATION SOURCE (unrecogn ized section and content) DATE CREATED AUTHOR 08/23/2017 [facility] DATE CREATED AUTHOR AUTHOR'S ORGANIZ ATION 07/18/2020 [facility] [employer] DATE CREATED AUTHOR AUTHOR'S ORGANIZ ATION 07/11/2022 [facility]ital DATE CREATED AUTHOR AUTHOR'S ORGANIZ ATION 11/08/2023 [facility] DATE CREATED AUTHOR AUTHOR'S ORGANIZ ATION 01/10/2024 [facility] dical Specialists EPIC REASON FOR VISIT (unrecogniz ed section and content) Reason Comments Follow-up 1 m Reason Comments Dermatochalasis Evaluation Reason Comments Follow-up Broken wrist Reason Comments Medicare Annual Wellness Visit Subsequen t Wellness Care Teams (unrecognized sec tion and content) [employer] Relationship Specialty Start Date End Date Jignesh Saez MD [address] [place] [address] PCP - General Family Medicine 04/11/23 [employer] Relationship Specialty Start Date End Date Jignesh Saez MD [address] [place] [address] PCP - General Family Medicine 04/11/23 [employer] Relationship Specialty Start Date End Date Jignesh Saez [address] [place] [phone] PCP - General Family Medicine 09/26/23 [employer] Relationship Specialty Start Date End Date Jignesh Saez MD [address] [place] [phone] PCP - General Family Medicine 04/11/23 [employer]er Relationship Specialty Start Date End Date Jignesh Saez MD [address] [place] [phone] PCP - General Family Medicine 04/11/23 [employer] Relationship Specialty Start Date End Date Jignesh Saez MD [address] [place] [phone] PCP - General Family Medicine 04/11/23 [employer] Relationship Specialty Start Date End Date Jignesh Saez MD [address] [place] [phone] PCP - General Family Medicine 04/11/23 [employer]er Relationship Specialty Start Date End Date Jignesh Saez MD [address] [place] [phone] PCP - General Family Medicine 04/11/23 [employer]er Relationship Specialty Start Date End Date Jignesh Saez MD [address] [place] [phone] PCP - General Family Medicine 04/11/23 Source Comments (unrecognize d section and content) In the event this informatio n is protected by the Federal Confidentiality of Alcohol and Drug Abuse Patient Records regulations: The Federal rules restrict any use of the information to criminally investigate or prosecute any alcohol or drug abuse patient.[facility] FOR RECORDS PERTAINING TO PATIENTS WHO [...] BE BASED ON THE PRIMARY CLINICAL RECORDS. [facility] [employer] [facility]. provides no warranty or guarantee of the accuracy or completeness of information in this document.
== END 2024-03-16 08:26 | disposition home or self-care (01) ==
LOC: EC 08:26
PROVIDERS: PCP Family Medicine; Visit Provider Orthopaedic Surgery
DX: S52.572D Other intraarticular fracture of lower end of left radius, subsequent encounter for closed fracture with routine healing (principal); S52.612D Displaced fracture of left ulna styloid process, subsequent encounter for closed fracture with routine healing
CPT/HCPCS: 73110

== ENCOUNTER 2024-07-28 08:37 | Outpatient (OUT) | payer OTHER, BC, SELFPAY ==
--- OUTSIDE RECORDS SUMMARY | 2024-07-15 10:49 | XMS_ITS ---
Author Name Auto Generated Organization [facility] Care Team Providers Care Geotechnicial Properties Technician Name Role Phone Genie Man Admitting Unavailable Jose Raul Barbosa Attending Unavailable Jignesh Saez Primary Care Unavailable GIDEON RUELAS Attending Unavailable BRIEN WESTBROOK Referring Unavailab JIGNESH Schaffer Primary Care Unavailable JIGNESH SAEZ Attending Unavailable JIGNESH SAEZ Attending Unavailable JIGNESH SAEZ Attending Unavailable JIGNESH SAEZ Attending Unavailable PROBLEMS DATE TYPE CONDITION / CODE ATTENDING STATUS [facility] 07/05/2024 Unknown Chronic obstruct karine pulmonary disease with (acute) exacerbation / J44.1(ICD-10) [facility] 07/05/2024 Unknown Essential (prima ry) hypertension / I10(ICD-10) [facility] 07/05/2024 Unknown Gastro-esophagea l reflux disease without esophagitis / K21.9(ICD-10) [facility] PROCEDURES No Procedure Records Found RESULTS COMPLETE BLOOD COUNT AUTO DIFF Collected: 07/08/2024 6:38 AM Status: F Source: [facility] TYPE CODE TESTS RESULT OUT OF RANGE REFERENCE UNITS LAB WBC White Blood Count 13.8 High 3.8-11.6 10*3/uL LAB UNWBC Uncorrected WBC 13.8 High 3.8-11.6 10*3/uL LAB RBC Red Blood Count 4.56 Normal 3.60-5.00 10*6/u L LAB HGB Hemoglobin 14.6 Normal 11.8-15.4 g/dL LAB HCT Hematocrit 44.1 Normal 34.0-46.4 % LAB MCV Mean Corpuscular Volume 96.7 Normal 80-100 fL LAB MCH Mean Corpuscular Hemoglobin 31.9 Normal 24.7-34.3 pg LAB MCHC Mean Corpuscular HGB Conc 33.0 Normal 32.0-35.0 g/dL LAB RDW Red Cell Distribution Width 13.0 Normal 11.9-15.3 % LAB PLT Platelet Count 249 Normal 150-450 10*3/uL LAB MPV Mean Platelet Volume 8.6 Normal 6.3-10.7 fL LAB NE% Neutrophils % (Auto) 61.3 . % LAB LY% Lymphocytes % (Auto) 28.2 . % LAB MO% Monocytes % (Auto) 9.6 . % LAB EO% Eosinophils % (Auto) 0.2 . % LAB BA% Basophils % (Auto) 0.7 . % LAB NRBC% NRBC% 0.1 Normal 0-0.5 /100{WBC} LAB NE# Neutrophils # (Auto) 8.4 High 1.8-7.7 10*3/uL LAB LY# Lymphocytes # (Auto) 3.9 Normal 1.00-4.8 10*3/uL LAB MO# Monocytes # (Auto) 1.3 High 0.0-0.8 10*3/uL LAB EO# Eosinophils # (Auto) 0.0 Normal 0.0-0.45 10*3/uL LAB BA# Basophils # (Auto) 0.1 Normal 0.0-0.2 10*3/uL Result Comment: PERFORMED BY : [place] [address] PATHOLOGIST AN/SYQ 13 NAV/C2 OPERATOR ELLA CLAY M.D. Performed By: #### BMP, CBC #### [address] BASIC METABOLIC PANEL Collected: 07/08/2024 6:38 AM Status: F Source: [facility] TYPE CODE TESTS RESULT OUT OF RANGE REFERENCE UNITS LAB GLU Glucose 102 High 70-100 mg/dL Result Comment: Random Gluco se Reference Range is dependent on time and content of last meal. Glucose of more than 200 mg/dL in a nonstressed, ambulatory subject supports the diagnosis of Diabetes Mellitus. ADA recommended reference range LAB BUN Blood Urea Nitrogen 16 Normal 7-25 mg/dL LAB CREATT Creatinine 0.59 Low 0.60-1.20 mg/dL LAB GFReNR Estimated GFR >60.0 mL/Min LAB NA Sodium 140 Normal 136-145 mmol/L LAB K Potassium 4.3 Normal 3.5-5.1 mmol/L Result Comment: Hemolysis is present at a level that could interfere with the result. Contact lab if redraw is required LAB CL Chloride 104 Normal 98-107 mmol/L LAB CO2 Carbon Dioxide 29.9 Normal 21.0-31.0 mmol/L LAB GAP Anion Gap 10.4 Normal 6.0-15.0 meq/L LAB CA Calcium 8.3 Low 8.6-10.3 mg/dL LAB CRCLPHA Creatinine Clr Calc Pharmacy 73.90 Result Comment: PERFORMED BY : [place] [address] PATHOLOGIST AN/SYQ 13 NAV/C2 OPERATOR ELLA CLAY M.D. Performed By: #### BMP, CBC #### [address] RESPIRATORY (UPPER) PANEL, PCR Observed: 07/07/2024 3:40 PM Status: F Source: [facility] Adenovirus Not detected Bordetella parapertussis Not detected Chlamydia pneumoniae Not detected Coronavirus 229E Not detected Coronavirus HKU1 Not detected Coronavirus NL63 Not detected Coronavirus OC43 Not detected Influenza A Not detected Influenza B Not detected Human Metapneumovirus Not detected Mycoplasma pneumoniae Not detected Parainfluenza Virus 1 Not detected Parainfluenza Virus 2 Not detected Parainfluenza Virus 3 Not detected Parainfluenza Virus 4 Not detected Bordetella pertussis-ptxP Not detected Human Rhino/Enterovirus Detected Resp. Syncytial Virus Not detected COVID-19 Detected/Not Detected Not detected Blank Space FLUA TEST INCLUDES Influenza A tests for the following clinically FLUA TEST INCLUDES significant subtypes: FLUA TEST INCLUDES - Influenza A FLUA TEST INCLUDES - Influenza A H1 FLUA TEST INCLUDES - Influenza A H1 2009 FLUA TEST INCLUDES - Influenza A H3 Blank Space PERFORMED BY: [place] [address] PATHOLOGIST AN/SYQ 13 NAV/C2 OPERATOR ELLA CLAY M.D. Performed By: #### BIOFIRECO VNOTDE, RESP PANEL UPP. #### [place] [id number] [facility] BIOFIRE NOT DETECTED Collected: 07/07/2024 3:40 PM S tatus: F Source: [facility] TYPE CODE TESTS RESULT OUT OF RANGE REFERENCE UNITS LAB BIOFIRECOVNOTDE BioFire Not Detected Not Detected Not Detecte Result Comment: This is a du plicate RP2.1 COVID (PCR) result to be used for statistical tracking purpose only. PERFORMED BY: [place] [address] PATHOLOGIST AN/SYQ 13 NAV/C2 OPERATOR ELLA CLAY M.D. Performed By: #### BIOFIRECO VNOTDE, RESP PANEL UPP. #### [place] [id number] [facility] COMPLETE BLOOD COUNT AUTO DIFF Collected: 07/06/2024 5:23 AM Status: F Source: [facility] TYPE CODE TESTS RESULT OUT OF RANGE REFERENCE UNITS LAB WBC White Blood Count 13.8 High 3.8-11.6 10*3/uL LAB UNWBC Uncorrected WBC 13.8 High 3.8-11.6 10*3/uL LAB RBC Red Blood Count 4.90 Normal 3.60-5.00 10*6/u L LAB HGB Hemoglobin 15.6 High 11.8-15.4 g/dL LAB HCT Hematocrit 46.9 High 34.0-46.4 % LAB MCV Mean Corpuscular Volume 95.9 Normal 80-100 fL LAB MCH Mean Corpuscular Hemoglobin 31.8 Normal 24.7-34.3 pg LAB MCHC Mean Corpuscular HGB Conc 33.2 Normal 32.0-35.0 g/dL LAB RDW Red Cell Distribution Width 13.0 Normal 11.9-15.3 % LAB PLT Platelet Count 270 Normal 150-450 10*3/uL LAB MPV Mean Platelet Volume 8.8 Normal 6.3-10.7 fL LAB NE% Neutrophils % (Auto) 83.4 . % LAB LY% Lymphocytes % (Auto) 12.1 . % LAB MO% Monocytes % (Auto) 4.0 . % LAB EO% Eosinophils % (Auto) 0.0 . % LAB BA% Basophils % (Auto) 0.5 . % LAB NRBC% NRBC% 0.0 Normal 0-0.5 /100{WBC} LAB NE# Neutrophils # (Auto) 11.5 High 1.8-7.7 10*3/uL LAB LY# Lymphocytes # (Auto) 1.7 Normal 1.00-4.8 10*3/uL LAB MO# Monocytes # (Auto) 0.5 Normal 0.0-0.8 10*3/uL LAB EO# Eosinophils # (Auto) 0.0 Normal 0.0-0.45 10*3/uL LAB BA# Basophils # (Auto) 0.1 Normal 0.0-0.2 10*3/uL Result Comment: PERFORMED BY : [place] [address] PATHOLOGIST AN/SYQ 13 NAV/C2 OPERATOR ELLA CLAY M.D. Performed By: #### CBC, BMP #### [address] BASIC METABOLIC PANEL Collected: 07/06/2024 5:23 AM Status: F Source: [facility] TYPE CODE TESTS RESULT OUT OF RANGE REFERENCE UNITS LAB GLU Glucose 155 High 70-100 mg/dL Result Comment: Random Gluco se Reference Range is dependent on time and content of last meal. Glucose of more than 200 mg/dL in a nonstressed, ambulatory subject supports the diagnosis of Diabetes Mellitus. ADA recommended reference range LAB BUN Blood Urea Nitrogen 13 Normal 7-25 mg/dL LAB CREATT Creatinine 0.62 Normal 0.60-1.20 mg/dL LAB GFReNR Estimated GFR >60.0 mL/Min LAB NA Sodium 140 Normal 136-145 mmol/L LAB K Potassium 4.3 Normal 3.5-5.1 mmol/L LAB CL Chloride 105 Normal 98-107 mmol/L LAB CO2 Carbon Dioxide 28.0 Normal 21.0-31.0 mmol/L LAB GAP Anion Gap 11.3 Normal 6.0-15.0 meq/L LAB CA Calcium 8.7 Normal 8.6-10.3 mg/dL LAB CRCLPHA Creatinine Clr Calc Pharmacy 72.00 Result Comment: PERFORMED BY : [place] [address] PATHOLOGIST AN/SYQ 13 NAV/C2 OPERATOR ELLA CLAY M.D. Performed By: #### CBC, BMP #### [facility] [address] [place] [address] [place] GRAM STAIN Observed: 07/05/2024 11:25 AM Status: F Source: [facility] Gram Stain Result 4+ Gram Positive Cocci 3+ Gram Positive Bacilli 2+ White Blood Cells 2+ Epithelial Cells PERFORMED BY: [address] [address] PATHOLOGIST AN/SYQ 13 NAV/C2 OPERATOR ELLA CLAY M.D. Performed By: #### GS, AERC #### [facility] [address] [place] [address] [facility] AEROBIC CULTURE Observed: 07/05/2024 11:25 AM Status: F Source: [facility] Result Tab Codes Moderate Normal Respiratory Lilia 2 Days Gram Stain Result 4+ Gram Positive Cocci 3+ Gram Positive Bacilli 2+ White Blood Cells 2+ Epithelial Cells PERFORMED BY: [address] [address] PATHOLOGIST AN/SYQ 13 NAV/C2 OPERATOR ELLA CLAY M.D. Performed By: #### GS, AERC #### [facility] [address] [place] [address] [facility] XR CHEST 1V PORTABLE Observed: 10:41 AM Status: COMPLETED Source: [facility] Main [place] [address] [place] [id number] XRay Report Signed Patient: Pepper Ernandez MR#: [id number] 0 : 1955 Acct:[id number] Age/Sex: 69 / F ADM Date: 07/05/24 Loc: 3T Room: [address] [place] [address] Type: ADM IN Attending Dr: Eliu Schmitz MD Copies to: MD Trevin Jeronimo Jr, MD Ordering Provider: Trevin Sepulveda Jr, MD Date of Service: 07/05/24 XR/XR chest 1V portable: Shortness of Breath/Dyspnea SINGLE VIEW CHEST CLINICAL HISTORY: Shortness breath, recent URI COMPARISON: 03/31/2017 FINDINGS: Large cardiomediastinal silhouette. Retrocardiac hiatal hernia. Hilar prominence may be related to slight patient rotation. Otherwise no focal airspace opacity effusion. XR/XR chest 1V portable IMPRESSION: RETROCARDIAC HIATAL HERNIA. RIGHT HILAR PROMINENCE COULD BE RELATED TO POSITIONING. NEGATIVE ACUTE PLEURAL-PARENCHYMAL DISEASE Impression dictated by: Phillip West M.D. 07/05/2024 10:42 AM Dictation Location: [place] [address] Transcribed By: [facility] 07/05/24 1042 Dictated By: Phillip West MD 07/05/24 1041 Signed By: <Electronically signed by Phillip West MD in OV> 07/05/[address] CHEST W CON Observed: 07/05/2024 9:14 AM Status: COMPLETED Source: [place] [id number] CT Scan Report Signed Patient: Pepper Ernandez MR#: [id number] 0 : 1955 Acct:[id number] Age/Sex: 69 / F ADM Date: 07/05/24 Loc: 3T Room: [address] [place] [address] Type: ADM IN Attending Dr: Eliu Schmitz MD Copies to: MD Trevin Jeronimo Jr, MD Ordering Provider: Trevin Sepulveda Jr, MD Date of Service: 07/05/24 CT/CT chest w con: wheezing, hypoxic, R hilar density/mass on CXR CT CHEST WITH INTRAVENOUS CONTRAST: CLINICAL HISTORY: Shortness breath, hypoxia, wheezing abnormal chest x-ray COMPARISON: Chest x-ray 07/05/2024 TECHNIQUE: Spiral images were obtained through the chest following intravenous administration of IV contrast. This CT exam was performed using one or more following dose reduction techniques: Automated exposure control, adjustment of the mA and/or kV according to patient size, or use of iterative reconstruction technique. FINDINGS: Mediastinum:Moderate to large paraesophageal hernia. Heart is borderline size with coronary artery calculations involving RCA. There are no pericardial effusion. No suspicious adenopathy. Lungs:Minimal bibasilar atelectasis and or scarring related to the hiatal hernia. Otherwise no focal opacity, effusion or pneumothorax. Abd:Bilateral adenomatous changes involving the left. Hypoattenuation of the liver suggestive of fatty infiltration... Soft tissues/Bones: No suspicious osseous lesion. CT/CT chest w con IMPRESSION: Moderate to large paraesophageal hiatal hernia Minimal bibasilar atelectasis or scarring adjacent the hernia Negative acute pleural-parenchymal disease. Impression dictated by: Phillip West M.D. 07/05/2024 9:18 AM Dictation Location: [place] [address] Transcribed By: [facility] 07/05/24917 Dictated By: Phillip West MD 07/05/24913 Signed By: <Electronically signed by Phillip West MD in OV> 07/05/249[address] COMPLETE BLOOD COUNT AUTO DIFF Collected: 07/05/2024 6:58 AM Status: F Source: F [facility] TYPE CODE TESTS RESULT OUT OF RANGE REFERENCE UNITS LAB WBC White Blood Count 9.2 Normal 3.8-11.6 10*3/uL LAB UNWBC Uncorrected WBC 9.2 Normal 3.8-11.6 10*3/uL LAB RBC Red Blood Count 4.94 Normal 3.60-5.00 10*6/u L LAB HGB Hemoglobin 15.8 High 11.8-15.4 g/dL LAB HCT Hematocrit 46.6 High 34.0-46.4 % LAB MCV Mean Corpuscular Volume 94.3 Normal 80-100 fL LAB MCH Mean Corpuscular Hemoglobin 32.1 Normal 24.7-34.3 pg LAB MCHC Mean Corpuscular HGB Conc 34.0 Normal 32.0-35.0 g/dL LAB RDW Red Cell Distribution Width 13.1 Normal 11.9-15.3 % LAB PLT Platelet Count 268 Normal 150-450 10*3/uL LAB MPV Mean Platelet Volume 8.4 Normal 6.3-10.7 fL LAB MDW Monocyte Distribution Width 19.66 Normal 0.00-20.00 % LAB NE% Neutrophils % (Auto) 82.6 . % LAB LY% Lymphocytes % (Auto) 15.4 . % LAB MO% Monocytes % (Auto) 1.4 . % LAB EO% Eosinophils % (Auto) 0.1 . % LAB BA% Basophils % (Auto) 0.5 . % LAB NRBC% NRBC% 0.0 Normal 0-0.5 /100{WBC } LAB NE# Neutrophils # (Auto) 7.6 Normal 1.8-7.7 10*3/uL LAB LY# Lymphocytes # (Auto) 1.4 Normal 1.00-4.8 10*3/uL LAB MO# Monocytes # (Auto) 0.1 Normal 0.0-0.8 10*3/uL LAB EO# Eosinophils # (Auto) 0.0 Normal 0.0-0.45 10*3/uL LAB BA# Basophils # (Auto) 0.0 Normal 0.0-0.2 10*3/uL Result Comment: PERFORMED BY : [place] [address] PATHOLOGIST AN/SYQ 13 NAV/C2 OPERATOR ELLA CLAY M.D. Performed By: #### CBC, CMP, HS TROP #### [address] TROPONIN I HIGH SENSITIVITY Collected: 07/05/2024 6:5 8 AM Status: F Source: [facility] TYPE CODE TESTS RESULT OUT OF RANGE REFERENCE UNITS LAB HS TROP Troponin I High Sensitivity 18 High 0-15 Result Comment: The Troponin units of report have been changed to meet the Chest Pain Accreditation requirement, element EC5.M1l2. Troponin units are changed from pg/ml to ng/L. Also, the decimal is removed and results are in whole numbers. PERFORMED BY: [place] [address] PATHOLOGIST AN/SYQ 13 NAV/C2 OPERATOR ELLA CLAY M.D. Performed By: #### CBC, CMP, HS TROP #### [address] [address] [facility] COMPREHENSIVE METABOLIC PANEL Collected: 07/05/2024 6 :58 AM Status: F Source: [facility] TYPE CODE TESTS RESULT OUT OF RANGE REFERENCE UNITS LAB GLU Glucose 171 High 70-100 mg/dL Result Comment: Random Gluco se Reference Range is dependent on time and content of last meal. Glucose of more than 200 mg/dL in a nonstressed, ambulatory subject supports the diagnosis of Diabetes Mellitus. ADA recommended reference range LAB BUN Blood Urea Nitrogen 13 Normal 7-25 mg/d L LAB CREATT Creatinine 0.66 Normal 0.60-1.20 mg/dL LAB GFReNR Estimated GFR >60.0 mL/Min LAB NA Sodium 138 Normal 136-145 mmol/L LAB K Potassium 4.6 Normal 3.5-5.1 mmol/L LAB CL Chloride 105 Normal 98-107 mmol/L LAB CO2 Carbon Dioxide 26.1 Normal 21.0-31.0 mmol/L LAB GAP Anion Gap 11.5 Normal 6.0-15.0 meq/L LAB CA Calcium 8.7 Normal 8.6-10.3 mg/dL LAB TP Total Protein 6.3 Low 6.4-8.9 g/dL LAB ALB Albumin Level 3.8 Normal 3.5-5.7 g/dL LAB GLOB Globulin 2.5 g/dL LAB AGRATIO Albumin/Globulin Ratio 1.5 LAB BILIT Bilirubin,Total 0.3 Normal 0.3-1.0 mg/dL LAB AST Aspartate Amino Transferase 27 Normal 13-39 U/L LAB ALT Alanine Aminotransferase 40 Normal 7-52 U/L LAB ALP Alkaline Phosphatase 61 Normal 34-104 U/L LAB CRCLPHA Creatinine Clr C alc Pharmacy 72.12 Result Comment: PERFORMED BY : [place] [address] PATHOLOGIST AN/SYQ 13 NAV/C2 OPERATOR ELLA CLAY M.D. Performed By: #### CBC, CMP, HS TROP #### [address] [address] [facility] COMPLETE BLOOD COUNT AUTO DIFF Collected: 07/05/2024 12:00 AM Status: F Source: [facility] TYPE CODE TESTS RESULT OUT OF RANGE REFERENCE UNITS LAB WBC White Blood Count 11.4 Normal 3.8-11.6 10*3/uL LAB UNWBC Uncorrected WBC 11.4 Normal 3.8-11.6 10*3/uL LAB RBC Red Blood Count 5.13 High 3.60-5.00 10*6/u L LAB HGB Hemoglobin 16.3 High 11.8-15.4 g/dL LAB HCT Hematocrit 48.6 High 34.0-46.4 % LAB MCV Mean Corpuscular Volume 94.6 Normal 80-100 fL LAB MCH Mean Corpuscular Hemoglobin 31.8 Normal 24.7-34.3 pg LAB MCHC Mean Corpuscular HGB Conc 33.7 Normal 32.0-35.0 g/dL LAB RDW Red Cell Distribution Width 12.9 Normal 11.9-15.3 % LAB PLT Platelet Count 281 Normal 150-450 10*3/uL LAB MPV Mean Platelet Volume 8.5 Normal 6.3-10.7 fL LAB MDW Monocyte Distribution Width 18.77 Normal 0.00-20.00 % LAB NE% Neutrophils % (Auto) 59.1 . % LAB LY% Lymphocytes % (Auto) 29.7 . % LAB MO% Monocytes % (Auto) 9.0 . % LAB EO% Eosinophils % (Auto) 1.5 . % LAB BA% Basophils % (Auto) 0.7 . % LAB NRBC% NRBC% 0.1 Normal 0-0.5 /100{WBC } LAB NE# Neutrophils # (Auto) 6.7 Normal 1.8-7.7 10*3/uL LAB LY# Lymphocytes # (Auto) 3.4 Normal 1.00-4.8 10*3/uL LAB MO# Monocytes # (Auto) 1.0 High 0.0-0.8 10*3/uL LAB EO# Eosinophils # (Auto) 0.2 Normal 0.0-0.45 10*3/uL LAB BA# Basophils # (Auto) 0.1 Normal 0.0-0.2 10*3/uL Result Comment: PERFORMED BY : [facility] [place] [address] PATHOLOGIST AN/SYQ 13 NAV/C2 OPERATOR ELLA CLAY M.D. Performed By: #### BNP, HS T ROP, CBC, CK, CMP #### [address] COMPREHENSIVE METABOLIC PANEL Collected: 07/05/2024 1 2:00 AM Status: F Source: [facility] TYPE CODE TESTS RESULT OUT OF RANGE REFERENCE UNITS LAB GLU Glucose 117 High 70-100 mg/dL Result Comment: Random Gluco se Reference Range is dependent on time and content of last meal. Glucose of more than 200 mg/dL in a nonstressed, ambulatory subject supports the diagnosis of Diabetes Mellitus. ADA recommended reference range LAB BUN Blood Urea Nitrogen 16 Normal 7-25 mg/d L LAB CREATT Creatinine 0.87 Normal 0.60-1.20 mg/dL LAB GFReNR Estimated GFR >60.0 mL/Min LAB NA Sodium 139 Normal 136-145 mmol/L LAB K Potassium 4.1 Normal 3.5-5.1 mmol/L Result Comment: Hemolysis is present at a level that could interfere with the result. Contact lab if redraw is required LAB CL Chloride 103 Normal 98-107 mmol/L LAB CO2 Carbon Dioxide 28.2 Normal 21.0-31.0 mmol/L LAB GAP Anion Gap 11.9 Normal 6.0-15.0 meq/L LAB CA Calcium 9.2 Normal 8.6-10.3 mg/dL LAB TP Total Protein 6.8 Normal 6.4-8.9 g/dL LAB ALB Albumin Level 4.1 Normal 3.5-5.7 g/dL LAB GLOB Globulin 2.7 g/dL LAB AGRATIO Albumin/Globulin Ratio 1.5 LAB BILIT Bilirubin,Total 0.2 Low 0.3-1.0 mg/dL LAB AST Aspartate Amino Transferase 57 High 13-39 U/L LAB ALT Alanine Aminotransferase 50 Normal 7-52 U/L LAB ALP Alkaline Phosphatase 70 Normal 34-104 U/L LAB CRCLPHA Creatinine Clr C alc Pharmacy 65.71 Result Comment: PERFORMED BY : [place] [address] PATHOLOGIST AN/SYQ 13 NAV/C2 OPERATOR ELLA CLAY M.D. Performed By: #### BNP, HS T ROP, CBC, CK, CMP #### [place] [id number] [facility] B-TYPE NATRIURETIC PEPTIDE Collected: 07/05/2024 12:0 0 AM Status: F Source: [facility] TYPE CODE TESTS RESULT OUT OF RANGE REFERENCE UNITS LAB BNP B-Type Natriuretic Peptide 42.0 Normal 5-100 pg/mL Result Comment: PERFORMED BY : [place] [id number] PATHOLOGIST AN/SYQ 13 NAV/C2 OPERATOR ELLA CLAY M.D. Performed By: #### BNP, HS T ROP, CBC, CK, CMP #### [place] [id number] [facility] CREATINE KINASE Collected: 12:00 AM Status: F Source: [facility] TYPE CODE TESTS RESULT OUT OF RANGE REFERENCE UNITS LAB CK Creatine Kinase 113 Normal 30-223 U/L Performed By: #### BNP, HS T ROP, CBC, CK, CMP #### [place] [id number] [facility] TROPONIN I HIGH SENSITIVITY Collected: 07/05/2024 12:00 AM Status: F Source: [facility] TYPE CODE TESTS RESULT OUT OF RANGE REFERENCE UNITS LAB HS TROP Troponin I High Sensitivity 27 High 0-15 Result Comment: The Troponin units of report have been changed to meet the Chest Pain Accreditation requirement, element EC5.M1l2. Troponin units are changed from pg/ml to ng/L. Also, the decimal is removed and results are in whole numbers. PERFORMED BY: [place] [address] PATHOLOGIST AN/SYQ 13 NAV/C2 OPERATOR ELLA CLAY M.D. Performed By: #### BNP, HS T ROP, CBC, CK, CMP #### [place] [id number] [facility] ECG 12 LEAD ECG Observed: 07/04/2024 10:15 PM Status: COMPLETED Source: [facility] Main [place] [id number] Electrocardiograph Report Signed Patient: Pepper Ernandez MR#: [id number] 0 : 1955 Acct:[id number] Age/Sex: 69 / F ADM Date: 07/05/24 Loc: Room: [address] [place] [address] Type: ADM IN Attending Dr: Eliu Schmitz MD Ordering Provider: Tervin Sepulveda Jr, MD Date of Service: 07/04/2405/26/2210 ECG/ECG 12 lead ECG: Shortness of Breath/Dyspnea Copies to: Test Reason : Blood Pressure : 131/84 mmHG Vent. Rate : 85 BPM Atrial Rate : 85 BPM P-R Int : 148 ms QRS Dur : 88 ms QT Int : 366 ms P-R-T Axes : 79 70 64 degrees QTcB Int : 435 ms Normal sinus rhythm Normal ECG No previous ECGs available Confirmed by TREVIN SEPULVEDA MD ([id number]) on 07/05/2024 10:03:37 PM Referred By: Electronically Signed By: TREVIN SEPULVEDA MD Transcribed By: MUS Signed By Trevin Sepulveda Jr, MD 2202 COVID-19 / FLU A/B / RSV PCR Observed: 0 07/04/2024 12:00 AM Status: F Source: [facility] COVID-19 Cepheid Result Negative for SARS-CoV-2 RNA by RT-PCR Flu A Cepheid Result Negative for Flu A RNA by RT-PCR Flu B Cepheid Result Negative for Flu B RNA by RT-PCR RSV Cepheid Result Negative for RSV RNA by RT-PCR COVID19 Blank Space Reference: Negative COVID19 Blank Space Cepheid Disclaimer The Cepheid Xpert Xpress CoV-2/Flu/RSV Plus has Cepheid Disclaimer not been FDA cleared or approved; this test has Cepheid Disclaimer been authorized by FDA under an EUA for use by Cepheid Disclaimer authorized laboratories; this test has been Cepheid Disclaimer authorized only for the simultaneous qualitative Cepheid Disclaimer detection and differentiation of nucleic acids from Cepheid Disclaimer SARS-CoV-2, influenza A, influenza B, and Cepheid Disclaimer respiratory syncytial virus (RSV), and not for any Cepheid Disclaimer other viruses or pathogens; and this test is only Cepheid Disclaimer authorized for the duration of the declaration that Cepheid Disclaimer circumstances exist justifying the authorization of Cepheid Disclaimer emergency use of in vitro diagnostic tests for Cepheid Disclaimer detection and/or diagnosis of COVID-19 under Cepheid Disclaimer Section 564(b)(1) of the Act, 21 U.S.C. 360bbb- Cepheid Disclaimer 3(b)(1), unless the authorization is terminated or Cepheid Disclaimer revoked sooner. PERFORMED BY: [address] [address] PATHOLOGIST AN/SYQ 13 NAV/C2 OPERATOR ELLA CLAY M.D. Performed By: #### CEPHEID N EG, COVID19 FLU RSV #### [address] [address] [facility] CEPHEID COVID PCR NEGATIVE Collected: 0 07/04/2024 12:00 AM Status: F Source: [facility] TYPE CODE TESTS RESULT OUT OF RANGE REFERENCE UNITS LAB CEPHEID NEG Cepheid COVID PCR Negative Negative Negative Result Comment: This is a du plicate Cepheid Xpert Xpress CoV-2/Flu/RSV Plus RNA by RT-PCR result to be used for statistical tracking purpose only. PERFORMED BY: [address] [address] PATHOLOGIST AN/SYQ 13 NAV/C2 OPERATOR ELLA CLAY M.D. Performed By: #### CEPHEID N EG, COVID19 FLU RSV #### [address] [address] [facility] PROGRESS Observed: 10/09/2023 11:17 AM Status: COMPLETED Source: [facility] HNO ID: [id number] Author: GIDEON REULAS MD Service: ? Author Type: Fellow Type: Progress Notes Filed: 11/06/2023 15:39 Note Text: History: Pepper Ernandez is a 68 year old woman with history of droopy eyelids, now bothersome for the past year. She was referred by her powerbuilder Dr. Westbrook for dermatochalasis. She is most [...] the above, please contact me directly at [phone]. Gideon Ruelas MD ALLERGIES DATE TYPE / CODE NAME / CODE REACTION SEVERITY SOURCE 07/04/2024 Drug Allergy/[id number] (SNOMED CT) No Known Allergies/[id number](RXNORM) Unknown [facility] ENCOUNTERS ADMIT/DISCHARGE ACCOUNT NUMBER ADMITTING ENCOUNTER CLASS LOCATION SOURCE 07/15/2024/07/16/19 [id number] Ambulatory Building:[facility] 07/05/2024/07/09/19 [id number] [facility] Inpatient [facility] n[facility]oom: [id number]: 2 [facility] 06/29/2024/06/30/19 [id number] Ambulatory Building:[facility] 01/08/2024/01/08/20 24 [id number] Ambulatory Building:[facility] 12/10/2023/12/10/19 24 [id number] Ambulatory Building:[facility] 10/09/2023/10/09/19 24 [id number] [facility] PAYERS ENCOUNTER GUARANTOR PAYER SUBSCRIBER SOURCE 07/15/2024 PEPPER BOOTH: [place], [place] [address]Qfv: () Primary Insurance:BCBSPolicy Number: [id number] ve Date:2019-05-03 PEPPER GANNONB: [id number] [place] [address] [facility] 07/15/2024 Secondary Insurance:[facility] MEDICAREPolicy Number: [id number] Date:2023-07-11 PEPPER GANNONB: [id number] [place] [address] [facility] Medical [facility] 07/05/2024 [place] [address]Qfr: (HP) Primary Insurance:Bhakti Ware MCRPolicy Number: [id number] Date:[id number] [address]NM: Pepper GannonB: [id number] [place] [address]Tak: (HP) [facility] 07/05/2024 Secondary Insurance:Charu CHAN/BSPolicy Number: [id number] Date:2024-07-04 Pepper Booth: [id number] [place] [address]Zpx: (HP) [facility] 07/05/2024 Tertiary Insurance:MedicarePoli cy Number: [id number] Date:2024-07-04 Pepper Booth: [id number] [place] [address]Irn: () [facility] 07/05/2024 Tertiary Insurance:Self PayPolicy Number: Effective Date:2024-07-04 [facility] PEPPER BOOTH: [place], [place] [address]Joj: (HP) Primary Insurance:BCBSPolicy Number: [id number] Date:2019-05-03 PEPPER GANNONB: [id number] [place] [address] [facility] 06/29/2024 Secondary Insurance:[employer] MEDICAREPolicy Number: [id number] Date:2023-07-11 PEPPER BOOTH: [id number] [place] [address] [facility] 01/08/2024 PEPPER BOOTH: [place], [place] [address]Qxv: (HP) Primary Insurance:[facility] MEDICAREPolicy Number: [id number] Date:2023-07-11 PEPPER BOOTH: [id number] [place] [address] [facility] 12/10/2023 PEPPER BOOTH: [place], [place] [address]Obc: (HP) Primary Insurance:BCBSPolicy Number: [id number] ve Date:2019-05-03 PEPPER BOOTH: [id number] [place] [address] [facility] 12/10/2023 Secondary Insurance:[facility] MEDICAREPolicy Number: [id number] Date:2023-07-11 PEPPER BOOTH: [id number] [place] [address] [facility] 10/09/2023 Primary Insuranc e:BLUE CARD TRADITIONAL OOSPolicy Number: [id number] Date:[id number] Name:Nick BOOTH: [id number] [place] [address] [facility]
--- OUTSIDE RECORDS SUMMARY | 2024-07-15 11:00 | XMS_ITS | Encounter Summary ---
Author Organization [facility] Address [address] [place] [address] Care Team Providers Care Netbackup Admin Name Role Phone Jignesh Serna MD Primary Care Provider [phone] Reason for Visit * Reason Comments Follow-up [facility] f /up copd Encounter Details Date Type Department Care Team (Late st Contact Info) Description 07/15/2024 11:00 AM EDT Office Visit [facility] [address] [place] [address] Jignesh Serna MD [address] [place] [address] Chronic obstructive pulmonary disease, unspecified COPD type (CMS/HCC) (Primary Dx); Acute hypoxic respiratory failure (CMS/HCC) Social History Tobacco Use Types Packs/Day Years Used Date Smoking Tobacco: Former Cigarettes Q uit: 06/09/2017 Smokeless Tobacco: Never PHQ-2 Answer Date Recorded Patient Health Questionnaire-2 Score 0 01/08/2024 Comments Unknown Sex and Gender Information Value Date Recorded Sex Assigned at Not on file Legal Sex Female 11:20 PM EDT Gender Identity Not on file Sexual Orientation Not on file documented as of this encounter Last Filed Vital Signs Vital Sign Reading Time Taken Comments Blood Pressure 124/82 07/15/2024 11:00 AM EDT Pulse 81 07/15/2024 11:00 AM EDT Temperature 36.3 C (97.3 F) 07/15/2024 11:00 AM EDT Respiratory Rate 22 07/15/2024 11:00 AM EDT Oxygen Saturation 93% 07/15/2024 11:00 AM EDT Inhaled Oxygen Concentration - - Weight 86.2 kg (190 lb) 07/15/2024 11:00 AM EDT Height 167.6 cm (5' 6 ) 07/15/2024 11:00 AM EDT Body Mass Index 30.67 07/15/2024 11:00 AM EDT documented in this encounter Progress Notes * Jignesh Serna MD - 07/15/2024 11:19 AM EDTAssociated Problem(s): Acute hypoxic respiratory failure (CMS/HCC) Recent hypoxia and on oxygen but able to wean to room air. Monitor SpO2. * Jignesh Serna MD - 07/15/2024 11:19 AM EDTAssociated Problem(s): COPD (chronic obstructive pulmonary disease) (CMS/HCC) Recent exacerbation and hypoxia but improved. Continue advair and use albuterol PRN. * Jignesh Serna MD - 07/15/2024 11:00 AM EDT Images from the original note were not included. Subjective Patient ID: Pepper Lacy is a 69 y.o. female who presents for Follow-up ([facility] f/up copd). Hospital follow up from 07/05-07/08 for COPD exacerbation. Seen in office 06/29 and given levaquin and prednisone. Symptoms worsened and severe SOB. To ER and found hypoxia but chest x-ray normal. Admitted and started antibiotics, steroids, and breathing treatments. Improved in hospital and discharged with prednisone and zithromax. Given advair but not using. Discharged with oxygen but has been able to wean off. Able to ambulate without hypoxia and currently 93% on room air. Overall improved and less SOB. Chest not as tight. No wheezing. Using albuterol PRN and helps. Review of Systems Respiratory: Negative for cough, [...] Assessment/Plan Problem List Items Addressed This Visit COPD (chronic obstructive pulmonary disease) (CMS/HCC) - Primary Recent exacerbation and hypoxia but improved. Continue advair and use albuterol PRN. Acute hypoxic respiratory failure (CMS/HCC) Recent hypoxia and on oxygen but able to wean to room air. Monitor SpO2. documented in this encounter Plan of Treatment Upcoming Encounters Date Type Department Care Team (Late st Contact Info) Description 09/29/2024 1:30 PM EDT [facility] [address] [place] [address] Jignesh Serna MD [address] [place] [address] documented as of this encounter Visit Diagnoses Diagnosis Chronic obstructive pulmonary disease, unspecified COPD type (CMS/HCC)- Primary Acute hypoxic respiratory failure (CMS/HCC) documented in this encounter Additional Health Concerns Assessment Noted Time PHQ-9 Depression Total Score: 0 01/08/20 24 11:00 AM EST documented as of this encounter Care Teams Netbackup Admin Relationship Specialty Start Date End Date Jignesh Serna MD [address] [place] [address] PCP - General Family Medicine 04/11/23 documented as of this encounter
--- OUTSIDE RECORDS SUMMARY | 2024-07-28 08:41 | XMS_ITS | Encounter Summary ---
Author Organization [facility] Address [address] [place] [address] Care Team Providers Care Litigation Support Analyst Name Role Phone Jignesh Serna MD Primary Care Provider [phone] Encounter Details Date Type Department Care Team (Late st Contact Info) Description 11/20/2023 Clinisync Result Encounter [facility] External Department Unsolicited Provider, Generic External Data Social History Tobacco Use Types Packs/Day Years Used Date Smoking Tobacco: Former Cigarettes Q uit: 06/09/2017 Smokeless Tobacco: Never Comments Unknown Sex and Gender Information Value Date Recorded Sex Assigned at Not on file Legal Sex Female 11:20 PM EDT Gender Identity Not on file Sexual Orientation Not on file documented as of this encounter Plan of Treatment Upcoming Encounters Date Type Department Care Team (Late Contact Info) Description 09/29/2024 1:30 PM EDT [facility] [address] [place] [address] Jignesh Serna MD [address] [place] [address] documented as of this encounter Procedures Procedure Name Priority Date/Time Associated Diagnosis Comments ECG 12-LEAD 11/20/2023 1:57 PM EDT documented in this encounter Results * ECG 12-LEAD (11/20/2023 1:57 PM EDT) Anatomical Region Laterality Modality Other 11/20/2023 1:57 PM EDT Narrative 11/20/2023 11:13 PM EDT The [address] [address] Electrocardiograph Report Signed Patient: PEPPER LACY MR#: [id number] : 1955 Acct:[id number] Age/Sex: 68 / F ADM Date: 11/20/23 Loc: PST Attending Dr: Javier Callaway M.D. Ordering Physician: Javier Callaway M.D. Date of Service: 11/20/23 Procedure(s): ECG 12 lead Accession Number(s): [id number] cc: [facility] Test Date: 2023-11-20 Pat Name: PEPPER LACY Department: Room: - Gender: Female Straightedge Man: : 1955 Requested By: Javier Callaway Order Number: [id number] Reading MD: CHARLES MCELROY Measurements Intervals [place] Rate: 57 P: 61 [place]: 175 QRS: 20 QRSD: 94 T: 44 QT: 407 QTc: 398 Interpretive Statements SINUS BRADYCARDIA Compared to ECG 09/01/2020 13:10:26 Sinus rhythm no longer present Ventricular premature complex(es) no longer present Electronically Signed On 11-20-2023 23:12:41 EDT by CHARLES MCELROY Dictated By: Charles Mcelroy D.O. Signed By: 11/20/23 2313 DD/ 1357 TD/TT: Photo Mask Inspector: Procedure Note Radiology, Radiologist, MD - 11/21/2023 The [place] [id number] Electrocardiograph Report Signed Patient: PEPPER LACY DMR#: [id number] : 5Acct:[id number] Age/Sex: 68 / FADM Date: 11/20/23 Loc: PST Attending Dr: Javier Callaway M.D. Ordering Physician: Javier Callaway M.D. Date of Service: 11/20/23 Procedure(s): ECG 12 lead Accession Number(s): [id number] cc: [facility] Test Date: 2023-11-20 Pat Name: PEPPER LACY Department: Room: - Gender: Female Straightedge Man: : 1955 Requested By: Javier Callaway Order Number: [id number] Reading MD: CHARLES MCELROY Measurements Intervals [place] Rate: 57 P: 61 [place]: 175 QRS: 20 QRSD: 94 T: 44 QT: 407 QTc: 398 Interpretive Statements SINUS BRADYCARDIA Compared to ECG 09/01/2020 13:10:26 Sinus rhythm no longer present Ventricular premature complex(es) no longer present Electronically Signed On 11-20-2023 23:12:41 EDT by CHARLES MCELROY Dictated By: Charles Mcelroy D.O. Signed By:11/20/23 1824 DD/ 1357 TD/TT: Photo Mask Inspector: us Generic External Data Provider [facility] Final Result documented in this encounter Visit Diagnoses Not on filedocumented in this encounter Care Teams Litigation Support Analyst Relationship Specialty Start Date End Date Jignesh Serna MD [address] [place] [address] PCP - General Family Medicine 04/11/23 documented as of this encounter
--- OUTSIDE RECORDS SUMMARY | 2024-07-28 08:41 | XMS_ITS | Encounter Summary ---
Author Organization [facility] Address [address] [place] [address] Care Team Providers Care Record Searcher Name Role Phone Jignesh Serna MD Primary Care Provider [phone] Encounter Details Date Type Department Care Team (Late Contact Info) Description 12/09/2023 Clinisync Result Encounter [facility] External Department Unsolicited [...] 09/29/2024 1:30 PM EDT [facility] [address] [place] [address] Jignesh Serna MD [address] [place] [address] documented as of this encounter Procedures Procedure Name Priority Date/Time Associated Diagnosis Comments XR WRIST LT MIN 3 V 12/09/2023 2 :27 PM EDT documented in this encounter Results * XR WRIST LT MIN 3 V (12/09/2023 2:27 PM EDT) Anatomical Region Laterality Modality Radiographic Jada ging 12/09/2023 2:27 PM EDT Narrative 12/09/2023 2:30 PM EDT The [place] [id number] XRay Report Signed Patient: PEPPER LACY MR#: [id number] : 1955 Acct:[id number] Age/Sex: 68 / F ADM Date: 12/09/23 Loc: EC Attending Dr: Anum Barrientos M.D. Ordering Physician: Anum Barrientos M.D. Date of Service: 12/09/23 Procedure(s): XR wrist LT min 3V Accession Number(s): [id number] cc: Anum Barrientos M.D.; Jignesh Serna M.D. The [place] [id number] Patient Name: PEPPER LACY MRN: [id number] date: 1955 Sex: F Assigned Patient Location: Current Patient Location: OT Accession/Order Number: [id number] Exam Date: 12/09/2023 08:14 Report Date: 12/09/2023 14:27 At the request of: ANUM BARRIENTOS Procedure: XR wrist LT min 3V PROCEDURE: XR wrist LT min 3V COMPARISON: 11/14/2023 HISTORY: LEFT WRIST PAIN FINDINGS: BONES:Interval open reduction internal fixation of the distal radius fracture utilizing a plate and screws. Stable ulnar styloid process fracture with partial bony bridging. SOFT TISSUES:Negative. No visible soft tissue swelling. EFFUSION:None visible. OTHER: Negative. XR/XR wrist LT min 3V IMPRESSION: Healing distal radius and ulna fractures with internal fixation of the radius Electronically authenticated by: AZAR STUART Date: 12/09/2023 14:27 Dictated By: Azar Stuart M.D. Signed By: 12/09/23 1430 DD/ 1427 TD/TT: Sales Office Coordinator: Procedure Note Radiology, Radiologist, MD - 12/09/2023 The [place] [id number] XRay Report Signed Patient: PEPPER LACY DMR#: [id number] : 5Acct:[id number] Age/Sex: 68 / FADM Date: 12/09/23 Loc: EC Attending Dr: Anum Barrientos M.D. Ordering Physician: Anum Barrientos M.D. Date of Service: 12/09/23 Procedure(s): XR wrist LT min 3V Accession Number(s): [id number] cc: Anum Barrientos M.D.; Jignesh Serna M.D. [place] [address] Patient Name: PEPPER LACY MRN: [id number] date: 1955 Sex: F Assigned Patient Location: EC Current Patient Location: OT Accession/Order Number: [id number] Exam Date: 12/09/2023 08:14 Report Date: 12/09/2023 14:27 At the request of: ANUM BARRIENTOS Procedure: XR wrist LT min 3V PROCEDURE: XR wrist LT min 3V COMPARISON: 11/14/2023 HISTORY: LEFT WRIST PAIN FINDINGS: BONES:Interval open reduction internal fixation of the distal radiusfracture utilizing a plate and screws. Stable ulnar styloid process fracture with partial bony bridging. SOFT TISSUES:Negative. No visible soft tissue swelling. EFFUSION:None visible. OTHER: Negative. XR/XR wrist LT min 3V IMPRESSION: Healing distal radius and ulna fractures with internal fixation of theradius Electronically authenticated by: AZAR STUART Date: 12/09/2023 14:27 Dictated By: Azar Stuart M.D. Signed By:12/09/23 1430 DD/ 1427 TD/TT: Sales Office Coordinator: us Generic External Data Provider IMG XR PROCEDURES Final Result documented in this encounter Visit Diagnoses Not on filedocumented in this encounter Care Teams Record Searcher Relationship Specialty Start Date End Date Jignesh Serna MD [address] [place] [address] PCP - General Family Medicine 04/11/23 documented as of this encounter
--- OUTSIDE RECORDS SUMMARY | 2024-07-28 08:41 | XMS_ITS | Encounter Summary ---
Author Organization [facility] Address [address] [place] [address] Care Team Providers Care Janitor Name Role Phone Jignesh Serna MD Primary Care Provider [phone] Encounter Details Date Type Department Care Team (Late st Contact Info) Description 11/27/2023 Clinisync Result Encounter [facility] External Department Unsolicited [...] 09/29/2024 1:30 PM EDT [facility] [address] [place] [address] Jignesh Serna MD [address] [place] [address] documented as of this encounter Procedures Procedure Name Priority Date/Time Associated Diagnosis Comments FLUOROSCOPY UP TO 1 HOUR 11/27/2023 10:12 AM EDT documented in this encounter Results * FLUOROSCOPY UP TO 1 HOUR (11/27/2023 10:12 AM EDT) Anatomical Region Laterality Modality Radiographic Jada ging 11/27/2023 10:1 2 AM EDT Narrative 11/27/2023 10:14 AM EDT [place] [id number] Fluoroscopy Report Signed Patient: PEPPER LACY MR#: [id number] : 1955 Acct:[id number] Age/Sex: 68 / F ADM Date: 11/25/23 Loc: SURGOUT Attending Dr: Anum Barrientos M.D. Ordering Physician: Anum Barrientos M.D. Date of Service: 11/25/23 Procedure(s): FL fluoroscopy <1hr NON-READ Accession Number(s): [id number] cc: Anum Barrientos M.D.; Jignesh Serna M.D. The [place] [id number] Patient Name: PEPPER LACY MRN: [id number] date: 1955 Sex: F Assigned Patient Location: [facility] Current Patient Location: Accession/Order Number: [id number] Exam Date: 11/25/2023 14:45 Report Date: 11/27/2023 10:12 At the request of: ANUM BARRIENTOS Procedure: FL fluoroscopy <1hr NON-READ EXAM: FL fluoroscopy <1hr NON-READ HISTORY: TECHNIQUE: FINDINGS: Please see Operative Report. Electronically authenticated by: LOBO TRAVIS Date: 11/27/2023 10:12 Dictated By: Lobo Travis Signed By: 11/27/23 1014 DD/ 1012 TD/TT: Blow Pit Operator: Procedure Note Radiology, Radiologist, MD - 11/27/2023 The [place] [id number] Fluoroscopy Report Signed Patient: PEPPER LACY DMR#: [id number] : 5Acct:[id number] Age/Sex: 68 / FADM Date: 11/25/23 Loc: SURGOUT Attending Dr: Anum Barrientos M.D. Ordering Physician: Anum Barrientos M.D. Date of Service: 11/25/23 Procedure(s): FL fluoroscopy <1hr NON-READ Accession Number(s): [id number] cc: Anum Barrientos M.D.; Jignesh Serna M.D. The [place] [id number] Patient Name: PEPPER LACY MRN: [id number] date: 1955 Sex: F Assigned Patient Location: SURGOUT Current Patient Location: Accession/Order Number: [id number] Exam Date: 11/25/2023 14:45 Report Date: 11/27/2023 10:12 At the request of: ANUM BARRIENTOS Procedure: FL fluoroscopy <1hr NON-READ EXAM: FL fluoroscopy <1hr NON-READ HISTORY: TECHNIQUE: FINDINGS: Please see Operative Report. Electronically authenticated by: LOBO TRAVIS Date: 11/27/2023 10:12 Dictated By: AngyRadiologist Signed By:11/27/23 1014 DD/ 1012 TD/TT: Blow Pit Operator: Generic External Data Provider IMG XR PROCEDURES Final Result documented in this encounter Visit Diagnoses Not on filedocumented in this encounter Care Teams Janitor Relationship Specialty Start Date End Date Jignesh Serna MD [address] [place] [address] PCP - General Family Medicine 04/11/23 documented as of this encounter
--- OUTSIDE RECORDS SUMMARY | 2024-07-28 08:41 | XMS_ITS | Encounter Summary ---
Author Organization [facility] Address [address] [facility] [place] [address] Care Team Providers Care Diazo Technician Name Role Phone Jignesh Serna MD Primary Care Provider [phone] Encounter Details Date Type Department Care Team (Late Contact Info) Description 11/15/2023 Orders Only [facility] [address] [place] [address] Lewis Osei MD [address] [place] [address] Social History Tobacco Use Types Packs/Day Years [...] 09/29/2024 1:30 PM EDT Office Visit [facility] [address] [place] [address] Jignesh Serna MD [address] [place] [address] documented as of this encounter Procedures Procedure Name Priority Date/Time Associated Diagnosis Comments XR WRIST LT MIN 3V Routine 11/14/2023 8:57 AM EDT documented in this encounter Results * XR WRIST LT MIN 3V (11/14/2023 8:57 AM EDT) Anatomical Region Laterality Modality Radiographic Jada ging us Lewis Osei MD IMG XR PROCEDURES Final Resul t documented in this encounter Visit Diagnoses Not on filedocumented in this encounter Care Teams Diazo Technician Relationship Specialty Start Date End Date Jignesh Serna MD [address] [place] [address] PCP - General Family Medicine 04/11/23 documented as of this encounter
--- OUTSIDE RECORDS SUMMARY | 2024-07-28 08:41 | XMS_ITS | Encounter Summary ---
Author Organization [facility] Address [address] [place] [address] Care Team Providers Care Commercial Loan Analyst Name Role Phone Jignesh Serna MD Primary Care Provider [phone] Jignesh Serna MD Primary Care Provider [phone] Encounter Details Date Type Department Care Team (Late st Contact Info) Description 02/28/2023 Clinisync Result Encounter [facility] External Department Unsolicited Jignesh Serna MD [address] [place] [address] Social History Tobacco Use Types Packs/Day Years [...] 09/29/2024 1:30 PM EDT [facility] [address] [place] [address] Jignesh Serna MD [address] [place] [address] documented as of this encounter Procedures Procedure Name Priority Date/Time Associated Diagnosis Comments MM TOMOSYNTHESIS SCREENING BI 02/28/2023 2:06 PM EST documented in this encounter Results * MM TOMOSYNTHESIS SCREENING BI (02/28/2023 2:06 PM EST) Anatomical Region Laterality Modality Other 02/28/2023 2:06 PM EST Narrative 02/28/2023 2:07 [place] [address] Mammography Report Signed Patient: PEPPER LACY MR#: [id number] : 1955 Acct:[id number] Age/Sex: 67 / F ADM Date: 02/28/23 Loc: MAMMO Attending Dr: Jignesh Serna M.D. Ordering Physician: Jignesh Serna M.D. Results: Date of Service: 02/28/23 Follow Up: Procedure(s): MM tomosynthesis screening BI Accession Number(s): [id number] cc: Jignesh Serna M.D. Patient Name: PEPPER LACY MR#: [id number] : 1955 Exam Date: 02/28/2023 Ordering Doctor: DR Jignesh Serna . RADIOLOGY REPORT PROCEDURE: MM TOMOSYNTHESIS SCREENING BI COMPARISON: MG MAMM SCREEN DANIELLE W CAD, 07/10/2017. MG MAMM SCREEN DANIELLE W CAD, 05/02/2015. INDICATIONS: screening Calculator Name NCI Breast Cancer Risk Assessment Tool 5 Year Breast Cancer Risk 1.70% Lifetime Breast Cancer Risk 5.60% Personal Breast Cancer No Personal Ovarian Cancer No Treatments None Family Cancers Father with prostate cancer at age 73. LOCATION: The [facility] BREAST COMPOSITION: Scattered areas fibroglandular density. FINDINGS: DIAGNOSTIC CATEGORY 1--NEGATIVE. RIGHT BREAST: No significant suspicious finding. No significant change has occurred. LEFT BREAST: No significant suspicious finding. No significant change has occurred. RECOMMENDATIONS: ROUTINE MAMMOGRAM AND CLINICAL EVALUATION IN 12 MONTHS. PLEASE NOTE: A NORMAL MAMMOGRAM DOES NOT EXCLUDE THE POSSIBILITY OF BREAST CANCER. A CLINICALLY SUSPICIOUS PALPABLE LUMP SHOULD BE BIOPSIED. Dictated by: Javier Boyd M.D. on 02/28/2023 at 14:03 Approved by: Javier Boyd M.D. on 02/28/2023 at 14:06 Dictated By: Javier Boyd M.D. Signed By: 02/28/23 1407 DD/ 1406 TD/TT: Fire Control Officer: Procedure Note Radiology, Radiologist, MD - 02/28/2023 [place] [address] Mammography Report Signed Patient: PEPPER LACY DMR#: [id number] : 5Acct:[id number] Age/Sex: 67 / FADM Date: 02/28/23 Loc: MAMMO Attending Dr: Jignesh Serna M.D. Ordering Physician: Jignesh Serna M.D.Results: Date of Service: 02/28/23Follow Up: Procedure(s): MM tomosynthesis screening BI Accession Number(s): [id number] cc: Jignesh Serna M.D. Patient Name: PEPPER LACY MR#: [id number] : 1955 Exam Date: 02/28/2023 Ordering Doctor: DR Jignesh Srena . RADIOLOGY REPORT PROCEDURE: MM TOMOSYNTHESIS SCREENING BI COMPARISON: MG MAMM SCREEN DANIELLE W CAD, 07/10/2017. MG MAMM SCREEN DANIELLE W CAD, 05/02/2015. INDICATIONS: screening Calculator Name NCI Breast Cancer Risk Assessment Tool 5 Year Breast Cancer Risk 1.70% Lifetime Breast Cancer Risk 5.60% Personal Breast Cancer No Personal Ovarian Cancer No Treatments None Family Cancers Father with prostate cancer at age 73. LOCATION: The [facility] BREAST COMPOSITION: Scattered areas fibroglandular density. FINDINGS: DIAGNOSTIC CATEGORY 1--NEGATIVE. RIGHT BREAST: No significant suspicious finding. No significant changehas occurred. LEFT BREAST: No significant suspicious finding. No significant changehas occurred. RECOMMENDATIONS: ROUTINE MAMMOGRAM AND CLINICAL EVALUATION IN 12 MONTHS. PLEASE NOTE: A NORMAL MAMMOGRAM DOES NOT EXCLUDE THE POSSIBILITY OFBREAST CANCER. A CLINICALLY SUSPICIOUS PALPABLE LUMP SHOULD BE BIOPSIED. Dictated by: Javier Boyd M.D. on 02/28/2023 at 14:03 Approved by: Javier Boyd M.D. on 02/28/2023 at 14:06 Dictated By: Javier Boyd M.D. Signed By:02/28/23 1407 DD/ 1406 TD/TT: Fire Control Officer: Jignesh Serna MD [facility] Final Result documented in this encounter Visit Diagnoses Not on filedocumented in this encounter Care Teams Commercial Loan Analyst Relationship Specialty Start Date End Date Jignesh Serna MD PCP - General Family Medicine 02/19/23 04/10/23 Jignesh Serna MD [address] [place] [address] PCP - General Family Medicine 04/11/23 documented as of this encounter
--- OUTSIDE RECORDS SUMMARY | 2024-07-28 08:42 | XMS_ITS | Encounter Summary ---
Author Organization [facility] Address [address] [place] [address] Care Team Providers Care Commis Chef Name Role Phone Jignesh Serna MD Primary Care Provider [phone] Encounter Details Date Type Department Care Team (Late Contact Info) Description 02/04/2024 Clinisync Result Encounter [facility] External Department Unsolicited [...] 09/29/2024 1:30 PM EDT [facility] [address] [place] [address] Jignesh Serna MD [address] [place] [address] documented as of this encounter Procedures Procedure Name Priority Date/Time Associated Diagnosis Comments XR WRIST LT MIN 3 V 02/04/2024 6 :26 AM EST documented in this encounter Results * XR WRIST LT MIN 3 V (02/04/2024 6:26 AM EST) Anatomical Region Laterality Modality Radiographic Jada ging 02/04/2024 6:26 AM EST Narrative 02/04/2024 6:29 [place] [address] XRay Report Signed Patient: PEPPER LACY MR#: [id number] : 1955 Acct:[id number] Age/Sex: 68 / F ADM Date: 02/03/24 Loc: EC Attending Dr: Anum Barrientos M.D. Ordering Physician: Anum Barrientos M.D. Date of Service: 02/03/24 Procedure(s): XR wrist LT min 3V Accession Number(s): [id number] cc: Anum Barrientos M.D.; Jignesh Serna M.D. [place] [id number] Patient Name: PEPPER LACY MRN: [id number] date: 1955 Sex: F Assigned Patient Location: Current Patient Location: Accession/Order Number: [id number] Exam Date: 02/03/2024 08:24 Report Date: 02/04/2024 06:26 At the request of: ANUM BARRIENTOS Procedure: XR wrist LT min 3V PROCEDURE: XR wrist LT min 3V HISTORY: LEFT WRIST PAIN COMPARISON: XR wrist left 01/06/2024 FINDINGS: BONES:Prior mechanical repair of distal radius via anterior plate and screws; no appreciable hardware fracture or loosening. No visible residual fracture line of the radius. Remote ulnar styloid process fracture with partial fusion. SOFT TISSUES:Soft tissue swelling surrounding the wrist. EFFUSION:None visible. OTHER: Negative. XR/XR wrist LT min 3V IMPRESSION: 1. Stable surgical changes without evidence of hardware failure or change in alignment. 2. Ongoing bone healing. Electronically authenticated by: ANUM BOYD Date: 02/04/2024 06:26 Dictated By: Anum Boyd M.D. Signed By: 02/04/24628 DD/ 5 TD/TT: Foreign Diplomat: Procedure Note Radiology, Radiologist, MD - 02/04/2024 The [place] [id number] XRay Report Signed Patient: PEPPER LACY DMR#: [id number] : 5Acct:[id number] Age/Sex: 68 / FADM Date: 02/03/24 Loc: EC Attending Dr: Anum Barrientos M.D. Ordering Physician: Anum Barrientos M.D. Date of Service: 02/03/24 Procedure(s): XR wrist LT min 3V Accession Number(s): [id number] cc: Anum Barrientos M.D.; Jignesh Serna M.D. The [place] [address] Patient Name: PEPPER LACY MRN: [id number] date: 1955 Sex: F Assigned Patient Location: Current Patient Location: Accession/Order Number: [id number] Exam Date: 02/03/2024 08:24 Report Date: 02/04/2024 06:26 At the request of: ANUM BARRIENTOS Procedure: XR wrist LT min 3V PROCEDURE: XR wrist LT min 3V HISTORY: LEFT WRIST PAIN COMPARISON: XR wrist left 01/06/2024 FINDINGS: BONES:Prior mechanical repair of distal radius via anterior plate andscrews; no appreciable hardware fracture or loosening. No visible residualfracture line of the radius. Remote ulnar styloid process fracture with partialfusion. SOFT TISSUES:Soft tissue swelling surrounding the wrist. EFFUSION:None visible. OTHER: Negative. XR/XR wrist LT min 3V IMPRESSION: 1. Stable surgical changes without evidence of hardware failure or changein alignment. 2. Ongoing bone healing. Electronically authenticated by: ANUM BOYD Date: 02/04/2024 06:26 Dictated By: Anum Boyd M.D. Signed By:02/04/24628 DD/ 5 TD/TT: Foreign Diplomat: us Generic External Data Provider IMG XR PROCEDURES Final Result documented in this encounter Visit Diagnoses Not on filedocumented in this encounter Additional Health Concerns Assessment Noted Time PHQ-9 Depression Total Score: 0 01/08/20 11:00 AM EST documented as of this encounter Care Teams Commis Chef Relationship Specialty Start Date End Date Jignesh Serna MD [address] [place] [address] PCP - General Family Medicine 04/11/23 documented as of this encounter
--- OUTSIDE RECORDS SUMMARY | 2024-07-28 08:42 | XMS_ITS | Encounter Summary ---
Author Organization [facility] Address [address] [place] [address] Care Team Providers Care Professional Shopper Name Role Phone Jignesh Serna MD Primary Care Provider [phone] Encounter Details Date Type Department Care Team (Late Contact Info) Description 03/16/2024 Clinisync Result Encounter [facility] External Department Unsolicited [...] 09/29/2024 1:30 PM EDT [facility] [address] [place] [address] Jignesh Serna MD [address] [place] [address] documented as of this encounter Procedures Procedure Name Priority Date/Time Associated Diagnosis Comments XR WRIST LT MIN 3 V 03/16/2024 8 :47 AM EST documented in this encounter Results * XR WRIST LT MIN 3 V (03/16/2024 8:47 AM EST) Anatomical Region Laterality Modality Radiographic Jada ging 03/16/2024 8:47 AM EST Narrative 03/16/2024 8:50 AM EST The [place] [id number] XRay Report Signed Patient: PEPPER LACY MR#: [id number] : 1955 Acct:[id number] Age/Sex: 68 / F ADM Date: 03/16/24 Loc: EC Attending Dr: Anum Barrientos M.D. Ordering Physician: Anum Barrientos M.D. Date of Service: 03/16/24 Procedure(s): XR wrist LT min 3V Accession Number(s): [id number] cc: Anum Barrientos M.D.; Jignesh Serna M.D. The [address] [address] Patient Name: PEPPER LACY MRN: [id number] date: 1955 Sex: F Assigned Patient Location: Current Patient Location: Accession/Order Number: [id number] Exam Date: 03/16/2024 08:26 Report Date: 03/16/2024 08:47 At the request of: ANUM BARRIENTOS Procedure: XR wrist LT min 3V PROCEDURE: XR wrist LT min 3V COMPARISON: 02/03/2024 HISTORY: LEFT WRIST PAIN FINDINGS: BONES:No acute fracture or dislocation. Remote healed distal radius fracture with internal fixation utilizing a plate plate and screws. Moderate degenerative changes with joint space narrowing SOFT TISSUES:Negative. No visible soft tissue swelling. EFFUSION:None visible. OTHER: Negative. XR/XR wrist LT min 3V IMPRESSION: Stable degenerative and postsurgical change Electronically authenticated by: AZAR STUART Date: 03/16/2024 08:47 Dictated By: Azar Stuart M.D. Signed By: 03/16/24 0850 DD/ 0847 TD/TT: Potato Picker: Procedure Note Radiology, Radiologist, MD - 03/16/2024 The [place] [id number] XRay Report Signed Patient: PEPPER LACY DMR#: [id number] : 5Acct:[id number] Age/Sex: 68 / FADM Date: 03/16/24 Loc: EC Attending Dr: Anum Barrientos M.D. Ordering Physician: Anum Barrientos M.D. Date of Service: 03/16/24 Procedure(s): XR wrist LT min 3V Accession Number(s): [id number] cc: Anum Barrientos M.D.; Jignesh Serna M.D. [place] [address] Patient Name: PEPPER LACY MRN: [id number] date: 1955 Sex: F Assigned Patient Location: Current Patient Location: Accession/Order Number: [id number] Exam Date: 03/16/2024 08:26 Report Date: 03/16/2024 08:47 At the request of: ANUM BARRIENTOS Procedure: XR wrist LT min 3V PROCEDURE: XR wrist LT min 3V COMPARISON: 02/03/2024 HISTORY: LEFT WRIST PAIN FINDINGS: BONES:No acute fracture or dislocation. Remote healed distal radiusfracture with internal fixation utilizing a plate plate and screws. Moderate degenerative changes with joint space narrowing SOFT TISSUES:Negative. No visible soft tissue swelling. EFFUSION:None visible. OTHER: Negative. XR/XR wrist LT min 3V IMPRESSION: Stable degenerative and postsurgical change Electronically authenticated by: AZAR STAURT Date: 03/16/2024 08:47 Dictated By: Azar Stuart M.D. Signed By:03/16/24 0850 DD/ 0847 TD/TT: Potato Picker: us Generic External Data Provider IMG XR PROCEDURES Final Result documented in this encounter Visit Diagnoses Not on filedocumented in this encounter Additional Health Concerns Assessment Noted Time PHQ-9 Depression Total Score: 0 01/08/20 24 11:00 AM EST documented as of this encounter Care Teams Professional Shopper Relationship Specialty Start Date End Date Jignesh Serna MD [address] [place] [address] PCP - General Family Medicine 04/11/23 documented as of this encounter
--- OUTSIDE RECORDS SUMMARY | 2024-07-28 08:42 | XMS_ITS | Encounter Summary ---
Author Organization [facility] Address [address] [place] [address] Care Team Providers Care Rotary Peel Oven Tender Name Role Phone Jignesh Saez MD Primary Care Provider [phone] Encounter Details Date Type Department Care Team (Late st Contact Info) Description 01/07/2024 Clinisync Result Encounter [facility] External Department Unsolicited Jignesh Saez MD [address] [place] [address] Social History Tobacco Use Types Packs/Day Years [...] on file documented as of this encounter Functional Status * Over the past 2 weeks, how often have you been bothered by any of the following problems? Question Answer Date of Assessment Author Little interest or pleasure in doing things Not at all 01/08/2024 11:00 AM [place] Feeling down, depressed, or hopeless Not at all 08/2023 11:00 AM [place] Patient Health Questionnaire-2 Score 0 08/2023 11:00 AM [place] * Question Answer Date of Assessment Author Trouble falling or staying a sleep, or sleeping too much Not at all 01/08/2024 11:00 AM [place] Feeling tired or having ifeanyi le energy Not at all 01/08/2024 11:00 AM [place] Poor appetite or overeating Not at all 01/08/2024 11 :00 AM [place] Feeling bad about yourself - or that you are a failure or have let yourself or your family down Not at all 01/08/2024 11:00 AM [place] Trouble concentrating on thi ngs, such as reading the newspaper or watching television Not at all 01/08/2024 11:00 AM [place] Moving or speaking so slowly that other people could have noticed? Or the opposite - being so fidgety or restless that you have been moving around a lot more than usual. Not at all 01/08/2024 11:00 AM [place] Thoughts that you would be b carmelo off or hurting yourself in some way Not at all 01/08/2024 11:00 AM [place] Patient Health Questionnaire-9 Score 0 08/2023 11:00 AM [place] documented as of this encounter Plan of Treatment Upcoming Encounters Date Type Department Care Team (Late st Contact Info) Description 09/29/2024 1:30 PM EDT Office Visit [facility] [address] [place] [address] Jignesh Saez MD [address] [place] [address] documented as of this encounter Procedures Procedure Name Priority Date/Time Associated Diagnosis Comments XR DEXA AXIAL SKELETON 01/07/2024 11:11 AM EST documented in this encounter Results * XR DEXA AXIAL SKELETON (01/07/2024 11:11 AM EST) Anatomical Region Laterality Modality Other 01/07/2024 11:1 1 AM EST Narrative 01/07/2024 11:13 AM EST The [address] [address] XRay Report Signed Patient: PEPPER LACY MR#: [id number] : 1955 Acct:[id number] Age/Sex: 68 / F ADM Date: 01/06/24 Loc: [facility] Attending Dr: Jignesh Saez M.D. Ordering Physician: Jignesh Saez M.D. Date of Service: 01/06/24 Procedure(s): XR DEXA axial skeleton Accession Number(s): [id number] cc: Jignesh Saez M.D. [place] [address] Patient Name: PEPPER LACY MRN: [id number] date: 1955 Sex: F Assigned Patient Location: [facility] Current Patient Location: Accession/Order Number: [id number] Exam Date: 01/06/2024 08:05 Report Date: 01/07/2024 11:11 At the request of: JIGNESH SAEZ Procedure: XR DEXA axial skeleton EXAMINATION: XR DEXA axial skeleton, 01/06/2024 8:05 AM EST HISTORY: Post menopausal COMPARISON: None. TECHNIQUE: Dual-energy X-ray absorptiometry (DEXA) bone density study performed for the axial skeleton. FINDINGS: Bone mineral density AP spine L1-L4 measures 0.884 g/sq cm for T score -2.5. Osteoporosis. Bone mineral density of the femurs measures 0.879 g/sq cm. T score -1.0. Normal XR/XR DEXA axial skeleton IMPRESSION: Osteoporosis, high fracture risk 10 year fracture is not reported because T score at or below -2.5 Pharmacologic treatment recommendations * No uniform recommendation applies to all patients. Management plans must be individualized. * Consider initiating pharmacologic treatment in postmenopausal women and men >= 50 years of age who have the following: Primary fracture prevention: * T-score <= - 2.5 at the femoral neck, total hip, lumbar spine, 33% radius (some uncertainty with existing data) by DXA. * Low bone mass (osteopenia: T-score between - 1.0 and - 2.5) at the femoral neck or total hip by DXA with a 10-year hip fracture risk >= 3% or a 10-year major osteoporosis-related fracture risk >= 20% (i.e., clinical vertebral, hip, forearm, or proximal humerus) based on the US-adapted FRAXregistered model. Secondary fracture prevention: * Fracture of the hip or vertebra regardless of BMD [4, 5]. * Fracture of proximal humerus, pelvis, or distal forearm in persons with low bone mass (osteopenia: T-score between - 1.0 and - 2.5). The decision to treat should be individualized in persons with a fracture of the proximal humerus, pelvis, or distal forearm who do not have osteopenia or low BMD [12, 13]. Kady MS, Mckenna SL, Jean Marie KL, Deshawn EM, Alisa KG, AJ, Zoran ES. The clinician's guide to prevention and treatment of osteoporosis. Osteoporos Int. 2021;3310):2684-0849. doi: 10.1007/c56344-614-03121-i. Epub 2021Jun 29. Erratum in: Osteoporos Int. 2021Sep 28;: PMID: 11932577; PMCID: [id number]. Electronically authenticated by: AZAR STUART Date: 01/07/2024 11:11 Dictated By: Azar Stuart M.D. Signed By: 01/07/24 1113 DD/ 1111 TD/TT: Manager Civil: Procedure Note Radiology, Radiologist, - 01/07/[address] [address] XRay Report Signed Patient: PEPPER LACY [facility]#: [id number] : 5Acct:[id number] Age/Sex: 68 / FADM Date: 01/06/24 Loc: RAD Attending Dr: Jignesh Saez M.D. Ordering Physician: Jignesh Saez M.D. Date of Service: 01/06/24 Procedure(s): XR DEXA axial skeleton Accession Number(s): [id number] cc: Jignesh Saez M.D. The [address] [address] Patient Name: PEPPER LACY MRN: [facility]:[id number] date: 1955 Sex: F Assigned Patient Location: [facility] Current Patient Location: Accession/Order Number: [id number] Exam Date: 01/06/2024 08:05 Report Date: 01/07/2024 11:11 At the request of: JIGNESH SAEZ Procedure: XR DEXA axial skeleton EXAMINATION: XR DEXA axial skeleton, 01/06/2024 8:05 AM EST HISTORY: Post menopausal COMPARISON: None. TECHNIQUE: Dual-energy X-ray absorptiometry (DEXA) bone density study performed for the axial skeleton. FINDINGS: Bone mineral density AP spine L1-L4 measures 0.884 g/sq cm for T score-2.5. Osteoporosis. Bone mineral density of the femurs measures 0.879 g/sq cm. T score -1.0. Normal XR/XR DEXA axial skeleton IMPRESSION: Osteoporosis, high fracture risk 10 year fracture is not reported because T score at or below -2.5 Pharmacologic treatment recommendations * No uniform recommendation applies to all patients. Management plans mustbe individualized. * Consider initiating pharmacologic treatment in postmenopausal women andmen >= 50 years of age who have the following: Primary fracture prevention: * T-score <= - 2.5 at the femoral neck, total hip, lumbar spine, 33%radius (some uncertainty with existing data) by DXA. * Low bone mass (osteopenia: T-score between - 1.0 and - 2.5) at thefemoral neck or total hip by DXA with a 10-year hip fracture risk >= 3% or l36-layl major osteoporosis-related fracture risk >= 20% (i.e., clinical vertebral, hip, forearm, or proximal humerus) based on the US-adapted FRAXregisteredmodel. Secondary fracture prevention: * Fracture of the hip or vertebra regardless of BMD [4, 5]. * Fracture of proximal humerus, pelvis, or distal forearm in persons withlow bone mass (osteopenia: T-score between - 1.0 and - 2.5). The decision totreat should be individualized in persons with a fracture of the proximalhumerus, pelvis, or distal forearm who do not have osteopenia or low BMD [12, 13]. Kady MS, Mckenna SL, Jean Marie KL, Deshawn EM, Alisa KG, AJ,Zoran ES. The clinician's guide to prevention and treatment of osteoporosis.Osteoporos Int. 2021;33(10):3319-7800. doi: 10.1007/x69390-345-87590-g. Epub . Erratum in: Osteoporos Int. 2021Sep 28;: PMID: 97480763; PMCID: [id number]. Electronically authenticated by: AZAR STUART Date: 01/07/2024 11:11 Dictated By: Azar Stuart M.D. Signed By:01/07/24 1113 DD/ 1111 TD/TT: Manager Civil: Jignesh Saez MD [facility] Final Result documented in this encounter Visit Diagnoses Not on filedocumented in this encounter Care Teams Rotary Peel Oven Tender Relationship Specialty Start Date End Date Jignesh Saez MD [address] [place] [address] PCP - General Family Medicine 04/11/23 documented as of this encounter
--- OUTSIDE RECORDS SUMMARY | 2024-07-28 08:42 | XMS_ITS | Clinical Summary ---
Author Organization [facility] Healthcare Address [address] [place] [address] Care Team Providers Care Bisque Brusher Name Role Phone Jignesh eSrna MD Primary Care Provider [phone] Allergies No known active allergies Medications albuterol HFA 90 mcg/act inhalerIndicati ons:Chronic obstructive pulmonary disease with (acute) exacerbation (CMS/HCC),Obstr uctive chronic bronchitis with exacerbation (CMS/HCC) INHALE 2 PUFFS EVERY 4 HOURS NEEDED 18 g 2 023 Active cholecalciferol (Vitamin D-3) 50 MCG (1999 UT) tabletIndicatio ns:Vitamin D deficiency, unspecified,Vit lynn D deficiency TAKE 1 TABLET BY MOUTH EVERY DAY 30 tablet 5 024 Active amLODIPine (Norvasc) 10 MG tabletIndicatio ns:Essential (primary) hypertension (CMS/HCC),Benig n essential hypertension (CMS/HCC) TAKE 1 TABLET BY MOUTH EVERY DAY 90 tablet 3 024 Active omeprazole (PriLOSEC) [address] capsuleIndicati ons:Gastro-esop hageal reflux disease without esophagitis,Eso phageal reflux TAKE 1 CAPSULE BY MOUTH EVERY DAY 90 capsule 3 024 Active alendronate (Fosamax) 70 MG tabletIndicatio ns:Age-related osteoporosis without current pathological fracture (CMS/HCC) Take 1 tablet (70 mg) by mouth every 7 (seven) days Take in the morning with a full glass of water, on an empty stomach, and do not take anything else by mouth or lie down for the next 30 min. 12 tablet 3 024 Active predniSONE (Deltasone) 10 MG tabletIndicatio ns:Chronic obstructive pulmonary disease with acute exacerbation (CMS/HCC) 6 PO daily x 3 days, 4 PO daily x 3 days, 2 PO daily x 3 days, 1 PO daily x 3 days 39 tablet 025 Active albuterol (2.5 MG/3ML) 0.083% nebulizer solutionIndicat ions:Chronic obstructive pulmonary disease with acute exacerbation (CMS/HCC) Take 3 mL (2.5 mg) by nebulization every 4 (four) hours if needed for wheezing or shortness of breath 150 mL 2 025 Active Fluticasone-Alejo meterol 250-50 MCG/ACT aerosol powder Inhale 1 Inhalation Daily 025 Active albuterol (2.5 MG/3ML) 0.083% nebulizer solution Take 2.5 mg by nebulization every 4 (four) hours if needed for wheezing 2024 Discontinued(R eorder) Trelegy Ellipta 200-62.5-25 MCG/ACT aerosol powder Inhale 1 puff in the morning. 023 2024 Discontinued phentermine (Adipex-P) 37.5 MG tabletIndicatio ns:Overweight (BMI 25.0-29.9) Take 1 tablet (37.5 mg) by mouth in the morning. Take before meals. 30 tablet 024 2024 Discontinued azithromycin (Zithromax) 250 MG tabletIndicatio ns:Upper respiratory tract infection, unspecified type 2 PO once a day on day #1, then 1 PO daily on days 2-5 6 tablet 025 2024 Discontinued cefdinir (Omnicef) 300 MG capsuleIndicati ons:Upper respiratory tract infection, unspecified type Take 1 capsule (300 mg) by mouth in the morning and 1 capsule (300 mg) before bedtime. Do all this for 10 days. 20 capsule 025 2024 Discontinued levoFLOXacin (Levaquin) 750 MG tabletIndicatio ns:Chronic obstructive pulmonary disease with acute exacerbation (CMS/HCC) Take 1 tablet (750 mg) by mouth Daily for 7 days 7 tablet 025 2024 azithromycin (Zithromax) 500 MG tablet Take 500 mg by mouth Daily 025 2024 benzonatate (Tessalon) 100 MG capsule Take 100 mg by mouth 3 (three) times a day as needed for cough 025 2024 Active Problems Problem Noted Date Diagnosed Date Acute hypoxic respiratory failure 07/15/2024 Assessment & Plan (07/15/2024 11:19 AM EDT): Recent hypoxia and on oxygen but able to wean to room air. Monitor SpO2. Medicare annual wellness visit, subsequent 01/07 Assessment & Plan (01/08/2024 11:42 AM EST): Due for labs. Discussed proper diet and regular aerobic exercise. Need aerobic exercise 5-6 days a week for 30 minutes at a time. Smaller portions and limit total calories. Colonoscopy every 10 years. Tetanus every 10 years. Advised not to smoke. Discussed daily Aspirin therapy. Encounter for long-term (current) use of medicat ions 01/08/2024 Osteoporosis 12/10/2023 Assessment & Plan (12/10/2023 2:24 PM EDT): Check dexa. Overweight (BMI 25.0-29.9) 04/11/2023 Assessment & Plan (01/08/2024 11:43 AM EST): Patient overweight and difficult time losing weight. [...] month. OARRS reviewed. Continue medications as prescribed. Assessment & Plan (07/11/2023 9:28 AM EDT): Weight down 5 pounds since last visit. Discussed proper diet and regular aerobic exercise. Recommend Weight Watchers and need to limit calories and smaller portions. Need to increase activity and regular aerobic exercise several days a week for 30 minutes at a time. Assessment & Plan (05/07/2023 9:48 AM EST): Patient doing well with adipex and lost 8 pounds in first month. Tolerating well with only mild dry mouth. Continue with dietary changes and less calories. Need to limit snacking and smaller portions. Continue healthier choices. Need regular aerobic exercise 30 minutes at a time 5-6 days a week. Refill for second month. OARRS reviewed. Continue meds as prescribed. If develop new or worsening symptoms contact office. Assessment & Plan (04/11/2023 1:27 PM EST): Patient overweight and difficult time losing weight. [...] month. OARRS reviewed. Continue medications as prescribed. Essential hypertension, benign 02/19/2023 Assessment & Plan (12/10/2023 2:24 PM EDT): BP controlled and monitor PRN. Assessment & Plan (07/11/2023 9:27 AM EDT): BP controlled and monitor PRN. Assessment & Plan (05/07/2023 9:48 AM EST): BP controlled and monitor PRN. Assessment & Plan (04/11/2023 1:27 PM EST): BP controlled and monitor PRN. Assessment & Plan (02/19/2023 2:56 PM EST): BP controlled and monitor PRN. Lower extremity edema 02/19/2023 Assessment & Plan (07/11/2023 9:27 AM EDT): No edema and elevate legs PRN. Assessment & Plan (05/07/2023 9:48 AM EST): No edema and elevate legs PRN. Assessment & Plan (04/11/2023 1:27 PM EST): No edema and elevate legs PRN. Assessment & Plan (02/19/2023 2:57 PM EST): No edema and elevate legs PRN. COPD (chronic obstructive pulmonary disease) Assessment & Plan (07/15/2024 11:19 AM EDT): Recent exacerbation and hypoxia but improved. Continue advair and use albuterol PRN. Assessment & Plan (06/29/2024 3:15 PM EDT): Currently having an exacerbation of COPD. Treat with prednisone and add levaquin. Use albuterol PRN. Assessment & Plan (01/08/2024 11:42 AM EST): Breathing stable and continue trelegy. Use albuterol PRN. Assessment & Plan (07/11/2023 9:27 AM EDT): Breathing stable and continue trelegy. Use albuterol PRN. Assessment & Plan (05/07/2023 9:47 AM EST): Breathing improved after stopping smoking and continue trelegy. Use albuterol PRN. Assessment & Plan (04/11/2023 1:27 PM EST): Breathing improved after stopping smoking and continue trelegy. Use albuterol PRN. Assessment & Plan (02/19/2023 2:56 PM EST): SOB stable and continue trelegy. Use albuterol PRN. 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 Assessment & Plan (02/19/2023 2:57 PM EST): Symptoms controlled with omeprazole and continue. Hypersomnolence 02/19/2023 Prediabetes 02/19/2023 Vitamin D deficiency 02/19/2023 Tobacco user 02/19/2023 Assessment & Plan (04/11/2023 1:27 PM EST): Doing well with chantix and stopped smoking. Continue medication for additional 8 weeks. Assessment & Plan (02/19/2023 2:57 PM EST): Interested in smoking cessation and start chantix. Resolved Problems Problem Noted Date Diagnosed Date Resolved Date Closed Colles' fracture of l eft radius with routine healing 12/10/2023 01/08/2024 Assessment & Plan (12/10/2023 2:25 PM EDT): Doing well after surgery and follow with ortho. Encounters Date Type Department Care Team Description 07/20/2024 Patient Outreach [facility] [address] [place] [address] Danae Hardy MA 07/15/2024 11:00 AM EDT Office Visit [facility] [address] [place] [address] Jignesh Serna MD Chronic obstructive pulmonary disease, unspecified COPD type (CMS/HCC) (Primary Dx); Acute hypoxic respiratory failure (CMS/HCC) 07/15/2024 Bamboo flowsheet [facility] [address] [place] [address] Jignesh Serna MD 07/10/2024 [facility] [address] [place] [address] Sammi Giles LPN 06/29/2024 2:15 PM EDT Office Visit [facility] [address] [place] [address] Jignesh Serna MD Chronic obstructive pulmonary disease with acute exacerbation (CMS/HCC) (Primary Dx) 06/29/2024 Bamboo flowsheet [facility] [address] [place] [phone] Jignesh Serna MD 06/24/2024 Telephone [facility] [address] [place] [address] Jignesh Serna MD from Last 3 Months Family History Medical History Relation Name Comments Diabetes Brother Kidney failure Brother Cancer Father Prostate cancer Father No Known Problems Mother Relation Name Status Comments Brother Father Mother Social History Tobacco Use Types Packs/Day Years Used Date Smoking Tobacco: Former Cigarettes Q uit: 06/09/2017 Smokeless Tobacco: Never PHQ-2 Answer Date Recorded Patient Health Questionnaire-2 Score 0 01/08/2024 Comments Unknown Sex and Gender Information Value Date Recorded Sex Assigned at Not on file Legal Sex Female 11:20 PM EDT Gender Identity Not on file Sexual Orientation Not on file Last Filed Vital Signs Vital Sign Reading [...] Mass Index 30.67 07/15/2024 11:00 AM EDT Plan of Treatment Upcoming Encounters Date Type Department Care Team (Late st Contact Info) Description 09/29/2024 1:30 PM EDT Office Visit [facility] [address] [place] [address] Jignesh Serna MD [address] [place] [address] Health Maintenance Due Date Last Done Comments CT Colonography 1955 FIT-DNA 1955 FIT 1955 FOBT 1955 Sigmoidoscopy 1955 Pneumococcal Vaccine: 65+ Ye ars (1 of 2 - PCV) 1973 Mammogram 02/29/2024 02/28/2023, 02/28/2023 Influenza Vaccine (Season Ended) 2024 Medicare Annual Wellness (AWV) 01/07/2025 01/08/2024 Colonoscopy 10/09/2028 10/09/2018, 10/09/2018 Colorectal Cancer Screening 10/09/2028 Procedures Procedure Name Priority Date/Time Associated Diagnosis Comments MM TOMOSYNTHESIS SCREENING BI 02/28/2023 2:06 PM EST from Last 3 Months or Most Recently Relevant to Health Maintenance Results * MM TOMOSYNTHESIS SCREENING BI (02/28/2023 2:06 PM EST) Anatomical Region Laterality Modality Other 02/28/2023 2:06 PM EST Narrative 02/28/2023 2:07 [place] [address] Mammography Report Signed Patient: PEPPER LACY MR#: [id number] : 1955 Acct:[id number] Age/Sex: 67 / F ADM Date: 02/28/23 Loc: MAMMO Attending Dr: Jignesh Serna M.D. Ordering Physician: Jignesh Serna M.D. Results: Date of Service: 02/28/23 Follow Up: Procedure(s): MM tomosynthesis screening BI Accession Number(s): [id number] cc: Jignesh Serna M.D. Patient Name: PEPPER LACY MR#: [id number] : 1955 Exam Date: 02/28/2023 Ordering Doctor: [...] prostate cancer at age 72. LOCATION: [facility] BREAST COMPOSITION: Scattered areas fibroglandular density. FINDINGS: [...] Signed By: 02/28/23 1407 DD/ 1406 TD/TT: Program Advocate: Procedure Note Radiology, Radiologist, MD - 02/28/2023 [place] [address] Mammography Report Signed Patient: PEPPER LACY DMR#: [id number] : 1955ct:[id number] Age/Sex: 67 / FADM Date: 02/28/23 Loc: MAMMO Attending Dr: Jignesh Serna M.D. Ordering Physician: Jignesh Serna M.D.Results: Date of Service: 02/28/23Follow Up: Procedure(s): MM tomosynthesis screening BI Accession Number(s): [id number] cc: Jignesh Serna M.D. Patient Name: PEPPER LACY MR#: [id number] : 1955 Exam Date: 02/28/2023 Ordering Doctor: [...] prostate cancer at age 72. LOCATION: [facility] BREAST COMPOSITION: Scattered areas fibroglandular density. FINDINGS: [...] M.D. Signed By:02/28/23 1407 DD/ 1406 TD/TT: Program Advocate: Jignesh Serna MD [facility] Final Result from Last 3 Months or Most Recently Relevant to Health Maintenance Insurance [employer] Care Teams Bisque Brusher Relationship Specialty Start Date End Date Jignesh Serna MD [address] [place] [phone] PCP - General Family Medicine 04/11/23
--- OUTSIDE RECORDS SUMMARY | 2024-07-28 08:42 | XMS_ITS ---
Author Organization [facility] Healthcare Address [address] [place] [address] Care Team Providers Care Tagman Name Role Phone Jignesh Serna MD Primary Care Provider [phone] 30 Day Monitoring Program Status:Closed (Closed) Start date:07/10/2024 Enrollment date:07/10/2024 Enrollment reason:Identified using hospital discharge data End date:07/20/2024 Close reason:Unable to reach patient Continued Care and Services Coordination
--- OUTSIDE RECORDS SUMMARY | 2024-07-28 08:42 | XMS_ITS | Encounter Summary ---
Author Organization [facility] Address [address] [place] [address] Care Team Providers Care Shellfish Dredge Operator Name Role Phone Jignesh Serna MD Primary Care Provider [phone] Encounter Details Date Type Department Care Team (Late Contact Info) Description 07/20/2024 Patient Outreach [facility] [address] [place] [phone] Danae Hardy MA Social History Tobacco Use Types Packs/Day Years [...] on file documented as of this encounter Progress Notes * Danae Hardy MA - 07/20/2024 1:08 PM EDT Unable to contact pt and have not received a call back.will close Monitor at this time. documented in this encounter Plan of Treatment Upcoming Encounters Date Type Department Care Team (Late st Contact Info) Description 09/29/2024 1:30 PM EDT Office Visit [facility] [address] [place] [address] Jignesh Serna MD [address] [place] [address] documented as of this encounter Visit Diagnoses Diagnosis Acute hypoxic respiratory failure ([facility]/HCC)- Primary COPD exacerbation ([facility]) Obstructive chronic bronchitis with exacerbation documented in this encounter Additional Health Concerns Assessment Noted Time PHQ-9 Depression Total Score: 0 01/08/20 24 11:00 AM EST documented as of this encounter Care Teams Shellfish Dredge Operator Relationship Specialty Start Date End Date Jignesh Serna MD [address] [place] [address] PCP - General Family Medicine 04/11/23 documented as of this encounter
--- OUTSIDE RECORDS SUMMARY | 2024-07-28 08:42 | XMS_ITS | Encounter Summary ---
Author Organization [facility] Address [address] [place] [address] Care Team Providers Care Shipping/Receiving Manager Name Role Phone Jignesh Serna MD Primary Care Provider [phone] Encounter Details Date Type Department Care Team [...] 1:30 PM EDT Office Visit [facility] [address] [place] [address] Jignesh Serna MD [address] [place] [address] documented as of this encounter Procedures Procedure Name Priority Date/Time Associated Diagnosis Comments XR WRIST LT MIN 3 V 01/07/2024 1 0:18 AM EST documented in this encounter Results * XR WRIST LT MIN 3 V (01/07/2024 10:18 AM EST) Anatomical Region Laterality Modality Radiographic Jada ging 01/07/2024 10:1 8 AM EST Narrative 01/07/2024 10:21 AM EST [address] [address] XRay Report Signed Patient: PEPPER LACY MR#: [id number] : 1955 Acct:[id number] Age/Sex: 68 / F ADM Date: 01/06/24 Loc: EC Attending Dr: Anum Barrientos M.D. Ordering Physician: Anum Barrientos M.D. Date of Service: 01/06/24 Procedure(s): XR wrist LT min 3V Accession Number(s): [id number] cc: Anum Barrientos M.D.; Jignesh Serna M.D. [facility] [place] [address] Patient Name: PEPPER LACY MRN: [facility]:[id number] date: 1955 Sex: F Assigned Patient Location: Current Patient Location: Accession/Order Number: [id number] Exam Date: 01/06/2024 08:26 Report Date: 01/07/2024 10:18 At the request of: ANUM BARRIENTOS Procedure: XR wrist LT min 3V PROCEDURE: XR wrist LT min 3V COMPARISON: 12/09/2023 HISTORY: LEFT WRIST PAIN FINDINGS: BONES:Stable healing distal radius and ulna fractures with internal fixation of the radius. No new fracture or dislocation SOFT TISSUES:Negative. No visible soft tissue swelling. EFFUSION:None visible. OTHER: Negative. XR/XR wrist LT min 3V IMPRESSION: Stable healing distal radius and ulna fractures with internal fixation of the radius Electronically authenticated by: AZAR STUART Date: 01/07/2024 10:18 Dictated By: Azar Stuart M.D. Signed By: 01/07/24 1021 DD/ 1018 TD/TT: Posting Specialist: Procedure Note Radiology, Radiologist, MD - 01/07/2024 [place] [address] XRay Report Signed Patient: PEPPER LACY DMR#: [id number] : 5Acct:[id number] Age/Sex: 68 / FADM Date: 01/06/24 Loc: EC Attending Dr: Anum Barrientos M.D. Ordering Physician: Anum Barrientos M.D. Date of Service: 01/06/24 Procedure(s): XR wrist LT min 3V Accession Number(s): [id number] cc: Anum Barrientos M.D.; Jignesh Serna M.D. [facility] [place] [address] Patient Name: PEPPER LACY MRN: [id number] date: 1955 Sex: F Assigned Patient Location: Current Patient Location: Accession/Order Number: [id number] Exam Date: 01/06/2024 08:26 Report Date: 01/07/2024 10:18 At the request of: ANUM BARRIENTOS Procedure: XR wrist LT min 3V PROCEDURE: XR wrist LT min 3V COMPARISON: 12/09/2023 HISTORY: LEFT WRIST PAIN FINDINGS: BONES:Stable healing distal radius and ulna fractures with internalfixation of the radius. No new fracture or dislocation SOFT TISSUES:Negative. No visible soft tissue swelling. EFFUSION:None visible. OTHER: Negative. XR/XR wrist LT min 3V IMPRESSION: Stable healing distal radius and ulna fractures with internal fixation ofthe radius Electronically authenticated by: AZAR STUART Date: 01/07/2024 10:18 Dictated By: Azar Stuart M.D. Signed By:01/07/24 1021 DD/ 1018 TD/TT: Posting Specialist: us Generic External Data Provider IMG XR PROCEDURES Final Result documented in this encounter Visit Diagnoses Not on filedocumented in this encounter Care Teams Shipping/Receiving Manager Relationship Specialty Start Date End Date Jignesh Serna MD [address] [place] [address] PCP - General Family Medicine 04/11/23 documented as of this encounter
--- OUTSIDE RECORDS SUMMARY | 2024-07-28 08:42 | XMS_ITS | Encounter Summary ---
Author Organization [facility] Address [address] [place] [address] Care Team Providers Care Coroner Name Role Phone Jignesh Serna MD Primary Care Provider [phone] Encounter Details Date Type Department Care Team (Late Contact Info) Description 07/15/2024 Bamboo flowsheet [facility] [address] [place] [address] Jignesh Serna MD [address] [place] [address] Social History Tobacco Use Types Packs/Day Years [...] Office Visit [facility] [address] [place] [address] Jignesh Serna MD [address] [place] [address] documented as of this encounter Visit Diagnoses Not on filedocumented in this encounter Additional Health Concerns Assessment Noted Time PHQ-9 Depression Total Score: 0 01/08/20 24 11:00 AM EST documented as of this encounter Care Teams Coroner Relationship Specialty Start Date End Date Jignesh Serna MD [address] [place] [address] PCP - General Family Medicine 04/11/23 documented as of this encounter
--- OUTSIDE RECORDS SUMMARY | 2024-07-28 08:42 | XMS_ITS | Encounter Summary ---
Author Organization [facility] Address [address] [place] [place] [address] Care Team Providers Care Yard Spotter Name Role Phone Jignesh Serna MD Primary Care Provider [phone] Encounter Details Date Type Department Care Team ([facility] Contact Info) Description 02/04/2024 Orders Only [facility] [address] [place] [address] Javier Callaway MD [address] [place] [address] [place] [address] Social History Tobacco Use Types Packs/Day Years [...] Upcoming Encounters Date Type Department Care Team ([facility] Contact Info) Description 09/29/2024 1:30 PM EDT Office Visit [facility] [address] [place] [address] Jignesh Serna MD [address] [place] [address] documented as of this encounter Procedures Procedure Name Priority Date/Time Associated Diagnosis Comments XR WRIST LT MIN 3V Routine 02/03/2024 8:36 AM EST documented in this encounter Results * XR WRIST LT MIN 3V (02/03/2024 8:36 AM EST) Anatomical Region Laterality Modality Radiographic Jada ging us Javier Callaway MD IMG XR PROCEDURES Final Res ult documented in this encounter Visit Diagnoses Not on filedocumented in this encounter Additional Health Concerns Assessment Noted Time PHQ-9 Depression Total Score: 0 01/08/20 24 11:00 AM EST documented as of this encounter Care Teams Yard Spotter Relationship Specialty Start Date End Date Jignesh Serna MD [address] [place] [address] PCP - General Family Medicine 04/11/23 documented as of this encounter
--- OUTSIDE RECORDS SUMMARY | 2024-07-28 08:42 | XMS_ITS | Encounter Summary ---
Author Organization [facility] Address [address] [place] [address] Care Team Providers Care Cork Insulation Setter Name Role Phone Jignesh Serna MD Primary Care Provider [phone] Encounter Details Date Type Department Care Team ([facility] Contact Info) Description 01/09/2024 Orders Only [facility] [address] [place] [address] Jignesh Serna MD [address] [place] [address] Social History Tobacco Use Types Packs/Day Years [...] 09/29/2024 1:30 PM EDT Office Visit [facility] [address] [place] [address] Jignesh Serna MD [address] [place] [address] documented as of this encounter Procedures Procedure Name Priority Date/Time Associated Diagnosis Comments DEXA BONE DENSITY Routine 01/09/2024 10:02 AM EST documented in this encounter Results * DEXA bone density (01/09/2024 10:02 AM EST) Anatomical Region Laterality Modality Body Radiographic Jada ging Jignesh Serna MD IMG DXA PROCEDURES Final Result documented in this encounter Visit Diagnoses Not on filedocumented in this encounter Additional Health Concerns Assessment Noted Time PHQ-9 Depression Total Score: 0 01/08/20 24 11:00 AM EST documented as of this encounter Care Teams Cork Insulation Setter Relationship Specialty Start Date End Date Jignesh Serna MD [address] [place] [address] PCP - General Family Medicine 04/11/23 documented as of this encounter
[2024-07-28 08:50] LABS: Basophils Percent Auto 0.3 % (0.2-2.0); Eosinophils Absolute Auto 0.3 10^3/uL (0.0-0.7); Eosinophils Percent Auto 5.6 % (0.9-7.0); Hematocrit 45.2 % (36.0-48.0); Hemoglobin 15.3 g/dL (12.0-16.0); Immature Granulocytes Abs Auto 0.02 10^3/uL (0.00-0.03); Immature Granulocytes Pct Auto 0.3 % (0.0-0.5); Lymphocytes Absolute Auto 2.6 10^3/uL (1.2-3.8); Lymphocytes Percent Auto 42.9 % (20.5-60.0); Mean Corpuscular HGB Conc 33.8 g/dL (29.9-35.2); Mean Corpuscular Hemoglobin 32.4 pg (26.7-34.0); Mean Corpuscular Volume 95.8 fL (81.0-99.0); Mean Platelet Volume 9.9 fL (9.5-13.5); Monocytes Absolute Auto 0.5 10^3/uL (0.3-0.8); Monocytes Percent Auto 8.6 % (1.7-12.0); Neutrophils Absolute Auto 2.5 10^3/uL (1.4-6.5); Neutrophils Percent Auto 42.3 % (43.0-75.0); Platelet Count 243 10^3/uL (150-450); Red Blood Count 4.72 10^6/uL (4.20-5.40); White Blood Count 5.9 10^3/uL (4.0-11.0)
[2024-07-28 09:19] LABS: Alanine Aminotransferase 37 U/L (14-59); Albumin Globulin Ratio 0.9; Albumin Level 3.2 g/dL (3.4-5.0); Alkaline Phosphatase 62 U/L (46-116); Anion Gap 12.5; Aspartate Amino Transferase 21 U/L (15-37); BUN Creatinine Ratio 16.2; Bilirubin Direct 0.1 mg/dL (0.0-0.2); Bilirubin Total 0.5 mg/dL (0.2-1.0); Calcium 8.8 mg/dL (8.5-10.1); Carbon Dioxide 31.9 mmol/L (21.0-32.0); Chloride 106 mmol/L (98-107); Chol HDL Ratio 3.3; Cholesterol 218 mg/dL (<=200); Estimated GFR (African America >60 (>=60 mL/min/1.73m^2); Estimated GFR (Non-African Ame >60 (>=60 mL/min/1.73m^2); Globulin 3.4 g/dL; Glucose 122 mg/dL (74-106); HDL Cholesterol 67 mg/dL (40-60); Potassium 4.4 mmol/L (3.5-5.1); Sodium 146 mmol/L (136-145); Total Protein 6.6 g/dL (6.4-8.2); Triglycerides 207 mg/dL (<=150); VLDL CHOLESTEROL 41.4 mg/dL
[2024-07-28 11:20] LABS: Estimated Average Glucose 131 mg/dL; Glycohemoglobin A1C 6.2 % (4.5-6.2)
== END 2024-07-28 08:38 | disposition home or self-care (01) ==
LOC: LAB 08:37
PROVIDERS: PCP Family Medicine; Visit Provider Family Medicine
DX: E78.5 Hyperlipidemia, unspecified (principal); R73.03 Prediabetes; I10 Essential (primary) hypertension; Z79.899 Other long term (current) drug therapy; E66.3 Overweight
CPT/HCPCS: 36415; 80048; 80061; 80076; 83036; 84443; 85025

== ENCOUNTER 2024-09-21 10:19 | Outpatient (OUT) | payer OTHER, BC, SELFPAY ==
--- OUTSIDE RECORDS SUMMARY | 2024-09-10 11:45 | XMS_ITS | Encounter Summary ---
Author Organization [facility] Address [address] [place] [address] Care Team Providers Care Clinical Ob Name Role Phone Jignesh Serna MD Primary Care Provider [phone] Reason for Referral * Imaging (Routine) - Authorized Specialty Diagnoses / Procedures Referred By Contac t Referred To Contact Cardiology Diagnoses Lower extremity edema SOB (shortness of breath) Procedures Echocardiogram 2D complete Jignesh Serna MD [address] [place] [address] Phone: tel: fax: [facility] Schedule fax: Referral ID Status Reason Start Date Expiration Date Visits Requested Visits Authorized [id number] Authorized Perform Procedure 09/10/2024 03/09/2025 1 1 Reason for Visit * Reason Comments Follow-up Pain/swelling in leg s, feet and stomach Encounter Details Date Type Department Care Team (Late st Contact Info) Description 09/10/2024 11:45 AM EDT [facility] [address] [place] [address] Jignesh Serna MD [address] [place] [address] Lower extremity edema (Primary Dx); SOB (shortness of breath); Abdominal pain, generalized; Essential hypertension, benign ; Encounter for long-term (current) use of medications Social History Tobacco Use Types Packs/Day Years [...] Sign Reading Time Taken Comments Blood Pressure 114/66 09/10/2024 11:47 AM EDT Pulse 82 09/10/2024 11:47 AM EDT Temperature 35.9 C (96.6 F) 09/10/2024 11:47 AM EDT Respiratory Rate 22 09/10/2024 11:47 AM EDT Oxygen Saturation 98% 09/10/2024 11:47 AM EDT Inhaled Oxygen Concentration - - Weight 86.6 kg (191 lb) 09/10/2024 11:47 AM EDT Height 167.6 cm (5' 6 ) 09/10/2024 11:47 AM EDT Body Mass Index 30.83 09/10/2024 11:47 AM EDT documented in this encounter Progress Notes * Jignesh Serna MD - 09/10/2024 12:12 PM EDTAssociated Problem(s): Lower extremity edema Worsening edema and likely related to venous insufficiency. Add aldactone and continue lasix. Checkecho and US RUQ. Check labs. If no improvement may need venous reflux studies and possible vascular. * Jignesh Serna MD - 09/10/2024 12:11 PM EDTAssociated Problem(s): Essential hypertension, benign BP controlled and monitor PRN. * Jignesh Serna MD - 09/10/2024 12:11 PM EDTAssociated Problem(s): Abdominal pain, generalized Check US RUQ * Jignesh Serna MD - 09/10/2024 11:45 AM EDT Images from the original note were not included. Subjective Patient ID: Pepper Lacy is a 69 y.o. female who presents for Follow-up (Pain/swelling in legs, feet and stomach). C/o increased swelling in both legs and feet for several months. Swelling from top foot to mid calf. Edema worse at end of day and if sit with feet down. Swelling improved with elevation and in am. C/o abdomen feels tight and distended. C/o pain in upper abdomen and feet when swollen. Denies worsening SOB or cough. No worse if lay flat. Minimal swelling when first wake up and develops as day progresses. Review of Systems Respiratory: Negative for cough, [...] Items Addressed This Visit Essential hypertension, benign BP controlled and monitor PRN. Relevant Orders Basic metabolic panel Lower extremity edema - Primary Worsening edema and likely related to venous insufficiency. Add aldactone and continue lasix. Checkecho and US RUQ. Check labs. If no improvement may need venous reflux studies and possible vascular. Relevant Medications spironolactone (Aldactone) 25 MG tablet Other Relevant Orders Echocardiogram 2D complete Encounter for long-term (current) use of medications Relevant Orders CBC and differential Hepatic function panel SOB (shortness of breath) Relevant Orders Echocardiogram 2D complete Abdominal pain, generalized Check US RUQ Relevant Orders US RUQ documented in this encounter Plan of Treatment Upcoming Encounters Date Type Department Care Team (Late st Contact Info) Description 01/12/2025 10:00 AM EST Office Visit [facility] [address] [place] [address] Jignesh Serna MD [address] [place] [place] [address] Scheduled Orders Name Type Priority Associated Diagnoses Orde r Schedule Echocardiogram 2D complete Echocardiography Routine Lower extremity edema SOB (shortness of breath) Expected: 09/10/2024 (Approximate), Expires: 09/10/2026 US RUQ Imaging Routine Abdominal pain, generalized Expected: 09/10/2024, Expires: 09/10/2025 Basic metabolic panel Lab Routine Essential hypertension, benign Expected: 09/10/2024 (Approximate), Expires: 09/10/2025 CBC and differential Lab Routine Encounter for long-term (current) use of medications Expected: 09/10/2024 (Approximate), Expires: 09/10/2025 Hepatic function panel Lab Routine Encounter for long-term (current) use of medications Expected: 09/10/2024 (Approximate), Expires: 09/10/2025 documented as of this encounter Visit Diagnoses Diagnosis Lower extremity edema- Primary Edema SOB (shortness of breath) Shortness of breath Abdominal pain, generalized Essential hypertension, benign Essential hypertension, benign Encounter for long-term (current) use of medications Encounter for long-term (current) use of other medications documented in this encounter Additional Health Concerns Assessment Noted Time PHQ-9 Depression Total Score: 0 01/08/20 24 11:00 AM EST documented as of this encounter Care Teams Clinical Ob Relationship Specialty Start Date End Date Jignesh Serna MD [address] [place] [address] PCP - General Family Medicine 04/11/23 documented as of this encounter
--- OUTSIDE RECORDS SUMMARY | 2024-09-21 10:22 | XMS_ITS | Encounter Summary ---
Author Organization [facility] Address [address] [place] [address] Care Team Providers Care Wet Char Conveyor Tender Name Role Phone Jignesh Serna MD Primary Care Provider [phone] Encounter Details Date Type Department Care Team (Late st Contact Info) Description 09/08/2024 Telephone [facility] [address] [place] [address] Jignesh Serna MD [address] [place] [address] Social History Tobacco Use Types Packs/Day Years [...] on file documented as of this encounter Miscellaneous Notes * Telephone Encounter - [place] [facility] - 09/08/2024 2:48 PM EDT Hi, this is Pepper Lacy. I was just wondering if there is any way I can get in to see Dr. Rodriguez this week. I have an appointment at the end of the month, but I really do not want to wait that long. Corbin not doing that great. I am just retaining water, not feeling good, just give me a call if you need any information and let me know. Thank you so much. Bydejuan. documented in this encounter Plan of Treatment Upcoming Encounters Date Type Department Care Team (Late st Contact Info) Description 01/12/2025 10:00 AM EST Office Visit [facility] [address] [place] [address] Jignesh Serna MD [address] [place] [address] documented as of this encounter Visit Diagnoses Not on filedocumented in this encounter Additional Health Concerns Assessment Noted Time PHQ-9 Depression Total Score: 0 01/08/20 11:00 AM EST documented as of this encounter Care Teams Wet Char Conveyor Tender Relationship Specialty Start Date End Date Jignesh Serna MD [address] [place] [address] PCP - General Family Medicine 04/11/23 documented as of this encounter
--- OUTSIDE RECORDS SUMMARY | 2024-09-21 10:22 | XMS_ITS | Encounter Summary ---
Author Organization [facility] Address [address] [place] [address] Care Team Providers Care Hand Bander Name Role Phone Jignesh Saez MD Primary Care Provider [phone] Encounter Details Date Type Department Care Team (Late st Contact Info) Description 01/07/2024 Clinisync Result Encounter [facility] External Department Unsolicited Jignesh Saez MD [address] [place] [address] Social History Tobacco Use Types Packs/Day Years [...] energy Not at all 01/08/2024 11:00 AM EST [place] [facility] Poor appetite or overeating Not at all [...] EST Office Visit [facility] [address] [place] [address] Jignesh Saez MD [address] [place] [address] documented as of this encounter Procedures Procedure Name Priority Date/Time Associated Diagnosis Comments XR DEXA AXIAL SKELETON 01/07/2024 11:11 AM EST documented in this encounter Results * XR DEXA AXIAL SKELETON (01/07/2024 11:11 AM EST) Anatomical Region Laterality Modality Other 01/07/2024 11:1 1 AM EST Narrative 01/07/2024 11:13 AM EST The [address] [address] XRay Report Signed Patient: PEPPER LACY MR#: [id number] : 1955 Acct:[id number] Age/Sex: 68 / F ADM Date: 01/06/24 Loc: DORI Attending Dr: Jignesh Saez M.D. Ordering Physician: Jignesh Saez M.D. Date of Service: 01/06/24 Procedure(s): XR DEXA axial skeleton Accession Number(s): [id number] cc: Jignesh Saez M.D. [place] [address] Patient Name: PEPPER LACY MRN: [id number] date: 1955 Sex: F Assigned Patient Location: [facility] Current Patient Location: Accession/Order Number: [id number] Exam Date: 01/06/2024 08:05 Report Date: 01/07/2024 [...] prevention and treatment of osteoporosis. Osteoporos Int. 2021;3310):5989-4577. doi: 10.1007/l58183-656-02691-f. Epub 2021Jun 29. Erratum in: Osteoporos Int. 2021Sep 28;: PMID: 15750188; PMCID: [id number]. Electronically authenticated by: AZAR STUART Date: 01/07/2024 11:11 Dictated By: Azar Stuart M.D. Signed By: 01/07/24 1113 DD/ 1111 TD/TT: Recording Studio Set Up Worker: Procedure Note Radiology, Radiologist, - 01/07/2024 [place] [address] XRay Report Signed Patient: PEPPER LACY [facility]#: [id number] : 5Acct:[id number] Age/Sex: 68 / FADM Date: 01/06/24 Loc: RAD Attending Dr: Jignesh Saez M.D. Ordering Physician: Jignesh Saez M.D. Date of Service: 01/06/24 Procedure(s): XR DEXA axial skeleton Accession Number(s): [id number] cc: Jignesh Saez M.D. The [address] [address] Patient Name: PEPPER LACY MRN: [id number]:[id number] date: 1955 Sex: F Assigned Patient Location: [facility] Current Patient Location: Accession/Order Number: [id number] Exam Date: 01/06/2024 08:05 Report Date: 01/07/2024 [...] 10-year hip fracture risk >= 3% or [id number] major osteoporosis-related fracture risk >= 20% (i.e., [...] to prevention and treatment of osteoporosis.Osteoporos Int. 2021;33(10):3525-7811. doi: 10.1007/t72281-877-07436-u. Epub . Erratum in: Osteoporos Int. 2021Sep 28;: PMID: 77110464; PMCID: [id number]. Electronically authenticated by: AZAR STUART Date: 01/07/2024 11:11 Dictated By: Azar Stuart M.D. Signed By:01/07/24 1113 DD/ 1111 TD/TT: Recording Studio Set Up Worker: Jignesh Saez MD [facility] Final Result documented in this encounter Visit Diagnoses Not on filedocumented in this encounter Care Teams Hand Bander Relationship Specialty Start Date End Date Jignesh Saez MD [address] [place] [address] PCP - General Family Medicine 04/11/23 documented as of this encounter
--- OUTSIDE RECORDS SUMMARY | 2024-09-21 10:22 | XMS_ITS | Encounter Summary ---
Author Organization [facility] Address [address] [place] [address] Care Team Providers Care Ethnographic Materials Conservator Name Role Phone Jignesh Serna MD Primary Care Provider [phone] Encounter Details Date Type Department Care Team (Late Contact Info) Description 11/20/2023 Clinisync Result Encounter [...] Department Care Team (Late Contact Info) Description 01/12/2025 10:00 AM EST [facility] [address] [place] [address] Jignesh Serna MD [address] [place] [address] documented as of this encounter Procedures Procedure Name Priority Date/Time Associated Diagnosis Comments ECG 12-LEAD 11/20/2023 1:57 PM EDT documented in this encounter Results * ECG 12-LEAD (11/20/2023 1:57 PM EDT) Anatomical Region Laterality Modality Other 11/20/2023 1:57 PM EDT Narrative 11/20/2023 11:13 PM EDT The [address] [address] Electrocardiograph Report Signed Patient: PEPPER LACY MR#: [id number] : 1955 Acct:[id number] Age/Sex: 68 / F ADM Date: 11/20/23 Loc: PST Attending Dr: Javier Callaway M.D. Ordering Physician: Javier Callaway M.D. Date of Service: 11/20/23 Procedure(s): ECG 12 lead Accession Number(s): [id number] cc: The [facility] Test Date: 2023-11-20 Pat Name: PEPPER LACY Department: Room: - Gender: Female Shade Classifier: : 1955 Requested By: Javier Callaway Order Number: [id number] Reading MD: CHARLES MCELROY Measurements Intervals Howe Rate: 57 P: 61 ND: 175 QRS: 20 QRSD: 94 T: 44 QT: 407 QTc: 398 Interpretive Statements SINUS BRADYCARDIA Compared to ECG 09/01/2020 13:10:26 Sinus rhythm no longer present Ventricular premature complex(es) no longer present Electronically Signed On 11-20-2023 23:12:41 EDT by CHARLES MCELROY Dictated By: Charles Mcelroy D.O. Signed By: 11/20/23 2313 DD/ 1357 TD/TT: Warp Splitter: Procedure Note Radiology, Radiologist, MD - 11/21/2023 The [place] [id number] Electrocardiograph Report Signed Patient: PEPPER LACY DMR#: [id number] : 5Acct:[id number] Age/Sex: 68 / FADM Date: 11/20/23 Loc: PST Attending Dr: Javier Callaway M.D. Ordering Physician: Javier Callaway M.D. Date of Service: 11/20/23 Procedure(s): ECG 12 lead Accession Number(s): [id number] cc: The [facility] Test Date: 2023-11-20 Pat Name: PEPPER LACY Department: Room: - Gender: Female Shade Classifier: : 1955 Requested By: Javier Callaway Order Number: [id number] Reading MD: CHARLES MCELROY Measurements Intervals Howe Rate: 57 P: 61 ND: 175 QRS: 20 QRSD: 94 T: 44 QT: 407 QTc: 398 Interpretive Statements SINUS BRADYCARDIA Compared to ECG 09/01/2020 13:10:26 Sinus rhythm no longer present Ventricular premature complex(es) no longer present Electronically Signed On 11-20-2023 23:12:41 EDT by CHARLES MCELROY Dictated By: Charles McelroyODora Signed By:11/20/23 8913 DD/ 1357 TD/TT: Warp Splitter: Generic External Data Provider [facility] Final Result documented in this encounter Visit Diagnoses Not on filedocumented in this encounter Care Teams Ethnographic Materials Conservator Relationship Specialty Start Date End Date Jignesh Serna MD [address] [place] [address] PCP - General Family Medicine 04/11/23 documented as of this encounter
--- OUTSIDE RECORDS SUMMARY | 2024-09-21 10:22 | XMS_ITS | Encounter Summary ---
Author Organization [facility] Address [address] [place] [address] Care Team Providers Care Parquetry Floor Layer Name Role Phone Jignesh Serna MD Primary Care Provider Encounter Details Date Type Department Care Team ([facility] Contact Info) Description 01/09/2024 Orders Only [facility] [address] [place] [address] Jignesh Serna MD [address] [place] [address] Social History Tobacco Use Types Packs/Day Years [...] 01/12/2025 10:00 AM EST Office Visit [facility] [address] [place] [address] Jignesh Serna MD [address] [place] [address] documented as of this encounter Procedures Procedure [...] documented as of this encounter Care Teams Parquetry Floor Layer Relationship Specialty Start Date End Date Jignesh Serna MD [address] [place] [address] PCP - General Family Medicine 04/11/23 documented as of this encounter
--- OUTSIDE RECORDS SUMMARY | 2024-09-21 10:22 | XMS_ITS | Encounter Summary ---
Author Organization [facility] Address [address] [place] [address] Care Team Providers Care Planer Stone Name Role Phone Jignesh Serna MD Primary [...] 01/12/2025 10:00 AM EST [facility] [address] [place] [address] Jignesh Serna MD [address] [place] [address] documented as of this encounter Procedures Procedure Name Priority Date/Time Associated Diagnosis Comments XR WRIST LT MIN 3 V 12/09/2023 2 :27 PM EDT documented in this encounter Results * XR WRIST LT MIN 3 V (12/09/2023 2:27 PM EDT) Anatomical Region Laterality Modality Radiographic Jada ging 12/09/2023 2:27 PM EDT Narrative 12/09/2023 2:30 PM EDT The [place] [id number] XRay Report Signed Patient: PEPPER LACY MR#: [id number] : 1955 Acct:[id number] Age/Sex: 68 / F ADM Date: 12/09/23 Loc: EC Attending Dr: Anum Barrientos M.D. Ordering Physician: Anum Barrientos M.D. Date of Service: 12/09/23 Procedure(s): XR wrist LT min 3V Accession Number(s): [id number] cc: Anum Barrientos M.D.; Jignesh Serna M.D. The [place] [id number] Patient Name: PEPPER LACY MRN: [id number] date: 1955 Sex: F Assigned Patient Location: Current Patient Location: OT Accession/Order Number: [id number] Exam Date: 12/09/2023 08:14 Report Date: 12/09/2023 [...] By: 12/09/23 1430 DD/ 1427 TD/TT: Sales Professional Bilingual: Procedure Note Radiology, Radiologist, MD - 12/09/2023 The [place] [id number] XRay Report Signed Patient: PEPPER LACY DMR#: [id number] : 5Acct:[id number] Age/Sex: 68 / FADM Date: 12/09/23 Loc: EC Attending Dr: Anum Barrientos M.D. Ordering Physician: Anum Barrientos M.D. Date of Service: 12/09/23 Procedure(s): XR wrist LT min 3V Accession Number(s): [id number] cc: Anum Barrientos M.D.; Jignesh Serna M.D. [place] [address] Patient Name: PEPPER LACY MRN: [id number] date: 1955 Sex: F Assigned Patient Location: EC Current Patient Location: OT Accession/Order Number: [id number] Exam Date: 12/09/2023 08:14 Report Date: 12/09/2023 [...] Signed By:12/09/23 1430 DD/ 1427 TD/TT: Sales Professional Bilingual: us Generic External Data Provider IMG XR PROCEDURES Final Result documented in this encounter Visit Diagnoses Not on filedocumented in this encounter Care Teams Planer Stone Relationship Specialty Start Date End Date Jignesh Serna MD [address] [place] [address] PCP - General Family Medicine 04/11/23 documented as of this encounter
--- OUTSIDE RECORDS SUMMARY | 2024-09-21 10:22 | XMS_ITS | Clinical Summary ---
Author Organization [facility] Address [address] [place], [place] [address] Care Team Providers Care Grades 7 And 8 Teacher Name Role Phone Jignesh Serna MD Primary Care Provider [phone] Allergies No known active allergies Medications albuterol HFA (PROVENTIL HFA, VENTOLIN HFA) 90 mcg/actuation inhaler Inhale 2 Puffs as instructed every 4 hours as needed. 3 Active cholecalciferol (VITAMIN D3) 50 mcg (2,000 unit) tablet Take 1 tablet by mouth once daily. 1 Active fluticasone/ume clidin/vilanter (TRELEGY ELLIPTA INHALATION) Inhale as instructed. Active amlodipine besylate (AMLODIPINE ORAL) Take by mouth. Activ e Family History Medical History Relation Comments Diabetes Brother Cancer Father Relation Status Comments Brother Father Social History Tobacco Use Types Packs/Day Years Used Date Smoking Tobacco: Former Cigarettes Smokeless Tobacco: Never Tobacco Cessation:Counseling Given: Not Answered Alcohol Use Standard Drinks/Week Comments Yes 0 (1 standard drink = 0.6 oz pur e alcohol) occasional Area Deprivation Index Answer Date Ranjan rded National Score (1-100), lower number is lower ri sk 80 10/09/2023 State Score (1-10), lower number is lower risk 7 10/09/2023 Data from: https://www.neighborhoodatlas.medicine.[facility].edu/. Last address used for calculation [address] [place] [address] 10/09/2023 Comments Unknown Sex and Gender Information Value Date Recorded Sex Assigned at Not on file Legal Sex Female 1:35 PM EDT Gender Identity Not on file Sexual Orientation Not on file Plan of Treatment Health Maintenance Due Date Last Done Comments Anxiety Screening 1972 Depression Screening 1972 Hepatitis C Screening 1972 DTaP,Tdap,Td Vaccine (1 - Tdap) [address] Colonography 05/05/1999 Cologuard (FIT-DNA) 05/05/1999 Colonoscopy 05/05/1999 Colorectal Cancer Screening 05/05/1999 Diabetes Screening 05/05/1999 Fecal Occult Blood 05/05/1999 Lipid Screening 05/05/1999 Sigmoidoscopy 05/05/1999 Pneumococcal Vaccine: 50+ (1 of 1 - PCV) 2004 Shingrix Vaccine (1 of 2) 2004 Bone Density Screening 05/05/2019 Covid-19 Vaccine ( season) 2023, 07/07/2020 Advance Directive Discussion 03/04/2024 Influenza Vaccine (#1) 2024 RSV Vaccine (1 - 1-dose 75+ series) [address] [place] [address] [facility] Care Teams Grades 7 And 8 Teacher Relationship Specialty Start Date End Date Jignesh Serna MD PCP - General Family Medicine 09/26/23
--- OUTSIDE RECORDS SUMMARY | 2024-09-21 10:22 | XMS_ITS | Encounter Summary ---
Author Organization [facility] Address [address] [place] [address] Care Team Providers Care Maintenance Assistant Name Role Phone Jignesh Serna MD Primary Care Provider [phone] Encounter Details Date Type Department Care Team ([facility] Contact Info) Description 02/04/2024 Orders Only [facility] [address] [place] [address] Javier Callaway MD [address] [place] [address] [place] [address] Social History Tobacco Use Types Packs/Day Years [...] Office Visit [facility] [address] [place] [address] Jignesh Serna MD [address] [place] [address] documented as of this encounter Procedures Procedure [...] documented as of this encounter Care Teams Maintenance Assistant Relationship Specialty Start Date End Date Jignesh Serna MD [address] [place] [address] PCP - General Family Medicine 04/11/23 documented as of this encounter
--- OUTSIDE RECORDS SUMMARY | 2024-09-21 10:22 | XMS_ITS | Clinical Summary ---
Author Organization [facility] Healthcare Address [address] [address] Care Team Providers Care Shaping Machine Operator Name Role Phone Jignesh Serna MD Primary Care Provider [phone] Allergies No known active allergies Medications albuterol HFA 90 mcg/act inhalerIndicatio ns:Chronic obstructive pulmonary disease with (acute) exacerbation (HCC),Obstructiv e chronic bronchitis with exacerbation (HCC) INHALE 2 PUFFS EVERY 4 HOURS NEEDED 18 g 2 3 Active amLODIPine (Norvasc) 10 MG tabletIndication s:Essential (primary) hypertension,Priyank ign essential hypertension TAKE 1 TABLET BY MOUTH EVERY DAY 90 tablet 3 4 Active omeprazole (PriLOSEC) [address] capsuleIndicatio ns:Gastro-esopha geal reflux disease without esophagitis,Esop hageal reflux TAKE 1 CAPSULE BY MOUTH EVERY DAY 90 capsule 3 4 Active alendronate (Fosamax) 70 MG tabletIndication s:Age-related osteoporosis without current pathological fracture Take 1 tablet (70 mg) by mouth every 7 (seven) days Take in the morning with a full glass of water, on an empty stomach, and do not take anything else by mouth or lie down for the next 30 min. 12 tablet 3 4 Active predniSONE (Deltasone) 10 MG tabletIndication s:Chronic obstructive pulmonary disease with acute exacerbation (HCC) 6 PO daily x 3 days, 4 PO daily x 3 days, 2 PO daily x 3 days, 1 PO daily x 3 days 39 tablet 5 Active albuterol (2.5 MG/3ML) 0.083% nebulizer solutionIndicati ons:Chronic obstructive pulmonary disease with acute exacerbation (HCC) Take 3 mL (2.5 mg) by nebulization every 4 (four) hours if needed for wheezing or shortness of breath 150 mL 2 5 Active Fluticasone-Salm eterol 250-50 MCG/ACT aerosol powder Inhale 1 Inhalation Daily 5 Active cholecalciferol (Vitamin D-3) 50 MCG (2000 UT) tabletIndication s:Vitamin D deficiency, unspecified,Karla min D deficiency TAKE 1 TABLET BY MOUTH EVERY DAY 30 tablet 5 5 Active furosemide (Lasix) 40 MG tabletIndication s:Lower extremity edema Take 1 tablet (40 mg) by mouth Daily as needed (Edema) 30 tablet 2 5 Active spironolactone (Aldactone) 25 MG tabletIndication s:Lower extremity edema Take 1 tablet (25 mg) by mouth Daily 30 tablet 5 5 Active Active Problems Problem Noted Date Diagnosed Date SOB (shortness of breath) 09/10/2024 Abdominal pain, generalized 09/10/2024 Assessment & Plan (09/10/2024 12:11 PM EDT): Check US RUQ Acute hypoxic respiratory failure 07/15/2024 Assessment & [...] Essential hypertension, benign 02/19/2023 Assessment & Plan (09/10/2024 12:11 PM EDT): BP controlled and monitor PRN. Assessment & Plan (12/10/2023 2:24 PM EDT): [...] Lower extremity edema 02/19/2023 Assessment & Plan (09/10/2024 12:12 PM EDT): Worsening edema and likely related to venous insufficiency. Add aldactone and continue lasix. Check echo and US RUQ. Check labs. If no improvement may need venous reflux studies and possible vascular. Assessment & Plan (07/11/2023 9:27 AM EDT): [...] Encounters Date Type Department Care Team Description 09/10/2024 11:45 AM EDT Office Visit [facility] [address] [place] [address] Jignesh Serna MD Lower extremity edema (Primary Dx); SOB (shortness of breath); Abdominal pain, generalized; Essential hypertension, benign ; Encounter for long-term (current) use of medications 09/10/2024 Bamboo flowsheet [facility] [address] [place] [phone] Jignesh Serna MD 09/08/2024 Telephone [facility] [address] [place] [address] Jignesh Serna MD 08/19/2024 Telephone [facility] [address] [place] [address] Jignesh Serna MD 08/08/2024 Refill [facility] [address] [place] [address] Jignesh Serna MD Vitamin D deficiency, unspecified; Vitamin D deficiency 07/28/2024 Results Follow-Up [facility] [address] [place] [address] Jignesh Serna MD 07/28/2024 Clinisync Result Encounter [facility] External Department Unsolicited Jignesh Serna MD 07/20/2024 Patient Outreach [facility] [address] [place] [address] Danae Hardy MA 07/15/2024 11:00 AM EDT Office Visit [facility] [address] [place] [address] Jignesh Serna MD Chronic obstructive pulmonary disease, unspecified COPD type (HCC) (Primary Dx); Acute hypoxic respiratory failure (HCC) 07/15/2024 Bamboo flowsheet [facility] [address] [place] [address] Jignesh Serna MD 07/10/2024 Patient Outreach [facility] [place] [address] Sammi GilesJOHN PAUL 06/29/2024 2:15 PM EDT Office Visit [facility] [address] [place] [address] Jignesh Serna MD Chronic obstructive pulmonary disease with acute exacerbation (HCC) (Primary Dx) 06/29/2024 Bamboo flowsheet [facility] [address] [place] [address] Jignesh Serna MD 06/24/2024 Telephone [facility] [address] [place] [address] Jignesh Serna MD from Last 3 Months [...] Mass Index 30.83 09/10/2024 11:47 AM EDT Plan of Treatment Upcoming Encounters Date Type Department Care Team (Late st Contact Info) Description 01/12/2025 10:00 AM EST Office Visit [facility] [address] [place] [address] Jignesh Serna MD [address] [place] [address] Health Maintenance Due Date Last Done Comments CT Colonography 1955 FIT-DNA 1955 FIT 1955 FOBT 1955 Sigmoidoscopy 1955 Pneumococcal Vaccine: 65+ Ye ars (1 of 2 - PCV) 1973 Mammogram 02/29/2024 02/28/2023, 02/28/2023 Influenza Vaccine (#1) 2024 Medicare Annual Wellness (AWV) 01/07/2025 01/08/2024 Colonoscopy 10/09/2028 10/09/2018, 10/09/2018 Colorectal Cancer Screening 10/09/2028 Procedures Procedure Name Priority Date/Time Associated Diagnosis Comments MLR HEMOGLOBIN A1C Routine 07/28/2024 8: 42 AM EDT ALL THYROID STIM HORMONE Routine 07/28/2024 8:42 AM EDT ALL LIPID PROFILE (FASTING) Routine 07/28/2024 8:42 AM EDT ALL BASIC METABOLIC PANEL Routine 07/28/2024 8:42 AM EDT HP LIVER PANEL Routine 07/28/2024 8:42 AM EDT ALL CBC WITH AUTO DIFF Routine 8:42 AM EDT MM TOMOSYNTHESIS SCREENING BI 02/28/2023 2:06 PM EST from Last 3 Months or Most Recently Relevant to Health Maintenance Results * MLR HEMOGLOBIN A1C (07/28/2024 8:42 AM EDT) GLYCOHEMOGLOBIN A1C 6.2 4.5 - 6.2 % [facility] Comment: ADA RECOMMENDED LIMIT 4.0 - 6.0 ADA THERAPEUTIC TARGET < 7.0 ACTION SUGGESTED > 7.0 ESTIMATED AVERAGE GLUCOSE 131 mg/dL TB 07/28/2024 8:42 AM EDT 07/28/2024 8:44 AM EDT Narrative CLINISYNC - 07/28/2024 11:23 AM EDT Jignesh WINTERS Final Result Performing Organization Address [facility] Co de Phone Number [facility] * (ABNORMAL) [facility] LIVER PANEL (07/28/2024 8:42 AM EDT) BILIRUBIN TOTAL 0.5 0.2 - 1.0 mg/dL TB BILIRUBIN DIRECT 0.1 0.0 - 0.2 mg/dL TB ASPARTATE AMINO TRANSFERASE 21 15 - 37 U/L TBH ALANINE AMINOTRANSFERASE 37 14 - 59 U/L TBH ALKALINE PHOSPHATASE 62 46 - 116 U/L TB TOTAL PROTEIN 6.6 6.4 - 8.2 g/dL TBH ALBUMIN LEVEL 3.2(L) 3.4 - 5.0 g/dL TBH GLOBULIN 3.4 g/dL TBH ALBUMIN GLOBULIN RATIO 0.9 TB 07/28/2024 8:42 AM EDT 07/28/2024 8:44 AM EDT Narrative CLINISYNC - 07/28/2024 9:19 AM EDT Jignesh WINTERS Final Result Performing Organization Address [facility] Co de Phone Number [facility] * ALL THYROID STIM HORMONE (07/28/2024 8:42 AM EDT) THYROID STIMULATING HORMONE 1.990 0.358 - 3.740 uIU/mL TB 07/28/2024 8:42 AM EDT 07/28/2024 8:44 AM EDT Narrative CLINISYNC - 07/28/2024 9:19 AM EDT Jignesh WINTERS Final Result Performing Organization Address [facility] de Phone Number [facility] * (ABNORMAL) ALL LIPID PROFILE (FASTING) (07/28/2024 8:42 AM EDT) TRIGLYCERIDES 207(H) <=150 mg/dL TBH CHOLESTEROL 218(H) <=200 mg/dL TB HDL CHOLESTEROL 67(H) 40 - 60 mg/dL TB Comment: > or =60 mg/dl - LOW CARDIOVASCULAR RISK <40 mg/dl - HIGH CARDIOVASCULAR RISK LDL CHOLESTEROL CALCULATED 110.0 mg/dL TB Comment: <100 mg/dl OPTIMAL 100-129 mg/dl NEAR OR ABOVE OPTIMAL 130-159 mg/dl BORDERLINE HIGH 160-189 mg/dl HIGH >190 mg/dl VERY HIGH VLDL CHOLESTEROL 41.4 mg/dL TB CHOL HDL RATIO 3.3 TB Comment: 3.3 - 4.4 LOW RISK 4.4 - 7.1 AVERAGE RISK 7.1 - 11.0 MODERATE RISK >11.0 HIGH RISK 07/28/2024 8:42 AM EDT 07/28/2024 8:44 AM EDT Narrative CLINISYNC - 07/28/2024 9:19 AM EDT Jignesh WINTERS Final Result Performing Organization Address [facility] Phone Number [facility] * (ABNORMAL) ALL CBC WITH AUTO DIFF (07/28/2024 8:42 AM EDT) TBH WBC 5.9 4.0 - 11.0 10 3/uL TBH TBH RBC 4.72 4.20 - 5.40 10 6/uL TBH TBH HGB 15.3 12.0 - 16.0 g/dL TBH TBH HCT 45.2 36.0 - 48.0 % TBH TBH MCV 95.8 81.0 - 99.0 fL TBH TBH MCH 32.4 26.7 - 34.0 pg TBH TBH MCHC 33.8 29.9 - 35.2 g/dL TBH TBH RDW 12.0 11.0 - 15.0 % TBH TBH PLT 243 150 - 450 10 3/uL TBH TBH MPV 9.9 9.5 - 13.5 fL TBH NEUTROPHILS PERCENT AUTO 42.3(L) 43.0 - 75.0 % TBH LYMPHOCYTES PERCENT AUTO 42.9 20.5 - 60.0 % TBH MONOCYTES PERCENT AUTO 8.6 1.7 - 12.0 % TBH TBH EO % 5.6 0.9 - 7.0 % TBH BASOPHILS PERCENT AUTO 0.3 0.2 - 2.0 % TBH IMMATURE GRANULOCYTES PCT AUTO 0.3 0.0 - 0.5 % TBH NEUTROPHILS ABSOLUTE AUTO 2.5 1.4 - 6.5 10 3/uL TBH LYMPHOCYTES ABSOLUTE AUTO 2.6 1.2 - 3.8 10 3/uL TBH MONOCYTES ABSOLUTE AUTO 0.5 0.3 - 0.8 10 3/uL TBH TBH EO # 0.3 0.0 - 0.7 10 3/uL TBH BASOPHILS ABSOLUTE AUTO 0.0 0.0 - 0.1 10 3/uL TBH IMMATURE GRANULOCYTES ABS AUTO 0.02 0.00 - 0.03 10 3/uL TBH 07/28/2024 8:42 AM EDT 07/28/2024 8:44 AM EDT Narrative CLINISYNC - 07/28/2024 8:56 AM EDT Jignesh Serna MD CLINISYNC Final Result [facility] * (ABNORMAL) ALL BASIC METABOLIC PANEL (07/28/2024 8:42 AM EDT) SODIUM 146(H) 136 - 145 mmol/L TBH POTASSIUM 4.4 3.5 - 5.1 mmol/L TBH CHLORIDE 106 98 - 107 mmol/L TBH CARBON DIOXIDE 31.9 21.0 - 32.0 mmol/L TBH ANION GAP 12.5 TBH GLUCOSE 122(H) 74 - 106 mg/dL TBH BLOOD UREA NITROGEN 11.0 7.0 - 18.0 mg/dL TBH CREATININE 0.68 0.55 - 1.02 mg/dL TBH TBH EGFR-AF CROATIAN >60 >=60 mL/min/1.7 3m 2 TBH TBH EGFR-NON AF CROATIAN >60 >=60 mL/min/1.7 3m 2 TBH BUN CREATININE RATIO 16.2 TBH CALCIUM 8.8 8.5 - 10.1 mg/dL TBH 07/28/2024 8:42 AM EDT 07/28/2024 8:44 AM EDT Narrative CLINISYNC - 07/28/2024 9:19 AM EDT Jignesh Serna MD CLINISYNC Final Result Performing Organization Address City/State/[facility] Co de Phone Number [facility] * MM TOMOSYNTHESIS SCREENING BI (02/28/2023 2:06 PM EST) Anatomical Region Laterality Modality Other 02/28/2023 2:06 PM EST Narrative 02/28/2023 2:07 [place] [address] Mammography Report Signed Patient: PEPPER LACY MR#: [id number] : 1955 Acct:[id number] Age/Sex: 67 / F ADM Date: 02/28/23 Loc: MAMMO Attending Dr: Jignesh Serna M.D. Ordering Physician: Jignesh Serna M.D. Results: Date of Service: 02/28/23 Follow Up: Procedure(s): MM tomosynthesis screening BI Accession Number(s): [id number] cc: Jignesh Serna M.D. Patient Name: PEPPER LACY MR#: [id number] : 1955 Exam Date: 02/28/2023 Ordering Doctor: DR Jignesh John RADIOLOGY REPORT PROCEDURE: MM TOMOSYNTHESIS SCREENING BI [...] prostate cancer at age 72. LOCATION: [facility] BREAST COMPOSITION: Scattered areas fibroglandular density. [...] Signed By: 02/28/23 1407 DD/ 1406 TD/TT: Film And Video Graphics Designer: Procedure Note Radiology, Radiologist, MD - 02/28/2023 [place] [address] Mammography Report Signed Patient: PEPPER LACY DMR#: [id number] : 1955ct:[id number] Age/Sex: 67 / FADM Date: 02/28/23 Loc: MAMMO Attending Dr: Jignesh Serna M.D. Ordering Physician: Jignesh Serna M.D.Results: Date of Service: 02/28/23Follow Up: Procedure(s): MM tomosynthesis screening BI Accession Number(s): [id number] cc: Jignesh Serna M.D. Patient Name: PEPPER LACY MR#: [id number] : 1955 Exam Date: 02/28/2023 Ordering Doctor: [...] prostate cancer at age 72. LOCATION: [facility] BREAST COMPOSITION: Scattered areas fibroglandular density. [...] M.D. Signed By:02/28/23 1407 DD/ 1406 TD/TT: Film And Video Graphics Designer: Jignesh Serna MD [facility] Final Result from Last 3 Months or Most Recently Relevant to Health Maintenance Insurance [employer] Care Teams Shaping Machine Operator Relationship Specialty Start Date End Date Jignesh Serna MD [address] [place] [address] PCP - General Family Medicine 04/11/23
--- OUTSIDE RECORDS SUMMARY | 2024-09-21 10:22 | XMS_ITS | Encounter Summary ---
Author Organization [facility] Address [address] [place] [address] Care Team Providers Care Supervisor Cell Efficiency Name Role Phone Jignesh Serna MD Primary Care Provider [phone] Encounter Details Date Type Department Care Team (Late Contact Info) Description 09/10/2024 Bamboo flowsheet [facility] [address] [place] [address] Jignesh Serna MD [address] [place] [address] Social History Tobacco Use Types Packs/Day Years [...] Office Visit [facility] [address] [place] [address] Jignesh Serna MD [address] [place] [address] documented as of this encounter Visit Diagnoses Not on filedocumented in this encounter Additional Health Concerns Assessment Noted Time PHQ-9 Depression Total Score: 0 11/06/20 24 11:00 AM EST documented as of this encounter Care Teams Supervisor Cell Efficiency Relationship Specialty Start Date End Date Jignesh Serna MD [address] [place] [address] PCP - General Family Medicine 04/11/23 documented as of this encounter
--- OUTSIDE RECORDS SUMMARY | 2024-09-21 10:22 | XMS_ITS | Encounter Summary ---
Author Organization [facility] Address [address] [place] [address] Care Team Providers Care Supervisor Microbiology Technologists Name Role Phone Jignesh Serna MD Primary Care Provider [phone] Encounter Details Date Type Department Care Team [...] Office Visit [facility] [address] [place] [address] Jignesh Serna MD [address] [place] [address] documented as of this encounter Procedures Procedure Name Priority Date/Time Associated Diagnosis Comments XR WRIST LT MIN 3 V 01/07/2024 1 0:18 AM EST documented in this encounter Results * XR WRIST LT MIN 3 V (01/07/2024 10:18 AM EST) Anatomical Region Laterality Modality Radiographic Jada ging 01/07/2024 10:1 8 AM EST Narrative 01/07/2024 10:21 AM EST [address] [address] XRay Report Signed Patient: PEPPER LACY MR#: [id number] : 1955 Acct:[id number] Age/Sex: 68 / F ADM Date: 01/06/24 Loc: EC Attending Dr: Anum Barrientos M.D. Ordering Physician: Anum Barrientos M.D. Date of Service: 01/06/24 Procedure(s): XR wrist LT min 3V Accession Number(s): [id number] cc: Anum Barrientos M.D.; Jignesh Serna M.D. The [address] [address] Patient Name: PEPPER LACY MRN: [facility]:[id number] date: 1955 Sex: F Assigned Patient Location: Current Patient Location: Accession/Order Number: [id number] Exam Date: 01/06/2024 08:26 Report Date: 01/07/2024 [...] Signed By: 01/07/24 1021 DD/ 1018 TD/TT: Department Coordinator: Procedure Note Radiology, Radiologist, MD - 01/07/2024 [place] [address] XRay Report Signed Patient: PEPPER LACY DMR#: [id number] : 5Acct:[id number] Age/Sex: 68 / FADM Date: 01/06/24 Loc: EC Attending Dr: Anum Barrientos M.D. Ordering Physician: Anum Barrientos M.D. Date of Service: 01/06/24 Procedure(s): XR wrist LT min 3V Accession Number(s): [id number] cc: Anum Barrientos M.D.; Jignesh Serna M.D. The [place] [address] Patient Name: PEPPER LACY MRN: [id number] date: 1955 Sex: F Assigned Patient Location: Current Patient Location: Accession/Order Number: [id number] Exam Date: 01/06/2024 08:26 Report Date: 01/07/2024 [...] AZAR STUART Date: 01/07/2024 10:18 Dictated By: zAar Stuart M.D. Signed By:01/07/24 1021 DD/ 1018 TD/TT: Department Coordinator: Generic External Data Provider IMG XR PROCEDURES Final Result documented in this encounter Visit Diagnoses Not on filedocumented in this encounter Care Teams Supervisor Microbiology Technologists Relationship Specialty Start Date End Date Jignesh Serna MD [address] [place] [address] PCP - General Family Medicine 04/11/23 documented as of this encounter
--- OUTSIDE RECORDS SUMMARY | 2024-09-21 10:22 | XMS_ITS | Encounter Summary ---
Author Organization [facility] Address [address] [place] [address] Care Team Providers Care Customer Solutions Teammate Name Role Phone Jignesh Serna MD Primary Care Provider Encounter Details Date Type Department Care Team (Late Contact Info) Description 07/28/2024 Results Follow-Up [facility] [address] [place] [address] Jignesh Serna MD [address] [place] [place] [address] Social History Tobacco Use Types Packs/Day Years [...] 01/12/2025 10:00 AM EST Office Visit [facility] [address] [place] [address] Jignesh Serna MD [address] [place] [address] documented as of this encounter Visit Diagnoses Not on filedocumented in this encounter Additional Health Concerns Assessment Noted Time PHQ-9 Depression Total Score: 0 01/08/20 24 11:00 AM EST documented as of this encounter Care Teams Customer Solutions Teammate Relationship Specialty Start Date End Date Jignesh Serna MD [address] [place] [address] PCP - General Family Medicine 04/11/23 documented as of this encounter
--- OUTSIDE RECORDS SUMMARY | 2024-09-21 10:22 | XMS_ITS | Encounter Summary ---
Author Organization [facility] Address [address] [place] [address] Care Team Providers Care Grocery Clerk Checking Name Role Phone Jignesh Serna MD Primary Care Provider [phone] Encounter Details Date Type Department Care Team [...] 01/12/2025 10:00 AM EST [facility] [address] [place] [address] Jingesh Serna MD [address] [place] [address] documented as of this encounter Procedures Procedure Name Priority Date/Time Associated Diagnosis Comments XR WRIST LT MIN 3 V 03/16/2024 8 :47 AM EST documented in this encounter Results * XR WRIST LT MIN 3 V (03/16/2024 8:47 AM EST) Anatomical Region Laterality Modality Radiographic Jada ging 03/16/2024 8:47 AM EST Narrative 03/16/2024 8:50 AM EST The [place] [id number] XRay Report Signed Patient: EPPPER LACY MR#: [id number] : 1955 Acct:[id number] Age/Sex: 68 / F ADM Date: 03/16/24 Loc: EC Attending Dr: Anum Barrientos M.D. Ordering Physician: Anum Barrientos M.D. Date of Service: 03/16/24 Procedure(s): XR wrist LT min 3V Accession Number(s): [id number] cc: Anum Barrientos M.D.; Jignesh Serna M.D. The [address] [address] Patient Name: PEPPER LACY MRN: [id number] date: 1955 Sex: F Assigned Patient Location: Current Patient Location: Accession/Order Number: [id number] Exam Date: 03/16/2024 08:26 Report Date: 03/16/2024 [...] Signed By: 03/16/24 0850 DD/ 0847 TD/TT: Studio Musician: Procedure Note Radiology, Radiologist, MD - 03/16/2024 The [place] [id number] XRay Report Signed Patient: PEPPER LACY DMR#: [id number] : 5Acct:[id number] Age/Sex: 68 / FADM Date: 03/16/24 Loc: EC Attending Dr: Anum Barrientos M.D. Ordering Physician: Anum Barrientos M.D. Date of Service: 03/16/24 Procedure(s): XR wrist LT min 3V Accession Number(s): [id number] cc: Anum Barrientos M.D.; Jignesh Serna M.D. [place] [address] Patient Name: PEPPER LACY MRN: [id number] date: 1955 Sex: F Assigned Patient Location: Current Patient Location: Accession/Order Number: [id number] Exam Date: 03/16/2024 08:26 Report Date: 03/16/2024 [...] M.D. Signed By:03/16/24 0850 DD/ 0847 TD/TT: Studio Musician: us Generic External Data Provider IMG XR PROCEDURES Final Result documented in this encounter Visit Diagnoses Not on filedocumented in this encounter Additional Health Concerns Assessment Noted Time PHQ-9 Depression Total Score: 0 01/08/20 24 11:00 AM EST documented as of this encounter Care Teams Grocery Clerk Checking Relationship Specialty Start Date End Date Jignesh Serna MD [address] [place] [address] PCP - General Family Medicine 04/11/23 documented as of this encounter
--- OUTSIDE RECORDS SUMMARY | 2024-09-21 10:22 | XMS_ITS | Encounter Summary ---
Author Organization [facility] Address [address] [place] [address] Care Team Providers Care Continuing Education Specialist Name Role Phone Jignesh Serna MD Primary Care Provider [phone] Encounter Details Date Type Department Care Team (Late Contact Info) Description 11/27/2023 Clinisync Result Encounter [...] 01/12/2025 10:00 AM EST [facility] [address] [place] [address] Jignesh Serna MD [address] [place] [address] documented as of this encounter Procedures Procedure Name Priority Date/Time Associated Diagnosis Comments FLUOROSCOPY UP TO 1 HOUR 11/27/2023 10:12 AM EDT documented in this encounter Results * FLUOROSCOPY UP TO 1 HOUR (11/27/2023 10:12 AM EDT) Anatomical Region Laterality Modality Radiographic Jada ging 11/27/2023 10:1 2 AM EDT Narrative 11/27/2023 10:14 AM EDT [place] [id number] Fluoroscopy Report Signed Patient: PEPPER LACY MR#: [id number] : 1955 Acct:[id number] Age/Sex: 68 / F ADM Date: 11/25/23 Loc: SURGOUT Attending Dr: Anum Barrientos M.D. Ordering Physician: Anum Barrientos M.D. Date of Service: 11/25/23 Procedure(s): FL fluoroscopy <1hr NON-READ Accession Number(s): [id number] cc: Anum Barrientos M.D.; Jignesh Serna M.D. The [place] [id number] Patient Name: PEPPER LACY MRN: [id number] date: 1955 Sex: F Assigned Patient Location: [facility] Current Patient Location: Accession/Order Number: [id number] Exam Date: 11/25/2023 14:45 Report Date: 11/27/2023 10:12 At the request of: ANUM BARRIENTOS Procedure: FL fluoroscopy <1hr NON-READ EXAM: FL fluoroscopy <1hr NON-READ HISTORY: TECHNIQUE: FINDINGS: Please see Operative Report. Electronically authenticated by: LOBO TRAVIS Date: 11/27/2023 10:12 Dictated By: Lobo Travis Signed By: 11/27/23 1014 DD/ 1012 TD/TT: Circulation Director: Procedure Note Radiology, Radiologist, MD - 11/27/2023 The [place] [id number] Fluoroscopy Report Signed Patient: PEPPER LACY DMR#: [id number] : 5Acct:[id number] Age/Sex: 68 / FADM Date: 11/25/23 Loc: SURGOUT Attending Dr: Anum Barrientos M.D. Ordering Physician: Anum Barrientos M.D. Date of Service: 11/25/23 Procedure(s): FL fluoroscopy <1hr NON-READ Accession Number(s): [id number] cc: Anum Barrientos M.D.; Jignesh Serna M.D. The [place] [id number] Patient Name: PEPPER LACY MRN: [id number] date: 1955 Sex: F Assigned Patient Location: SURGOUT Current Patient Location: Accession/Order Number: [id number] Exam Date: 11/25/2023 14:45 Report Date: 11/27/2023 10:12 At the request of: ANUM BARRIENTOS Procedure: FL fluoroscopy <1hr NON-READ EXAM: FL fluoroscopy <1hr NON-READ HISTORY: TECHNIQUE: FINDINGS: Please see Operative Report. Electronically authenticated by: LOBO TRAVIS Date: 11/27/2023 10:12 Dictated By: AngyRadiologist Signed By:11/27/23 1014 DD/ 1012 TD/TT: Circulation Director: Generic External Data Provider IMG XR PROCEDURES Final Result documented in this encounter Visit Diagnoses Not on filedocumented in this encounter Care Teams Continuing Education Specialist Relationship Specialty Start Date End Date Jignesh Serna MD [address] [place] [address] PCP - General Family Medicine 04/11/23 documented as of this encounter
--- OUTSIDE RECORDS SUMMARY | 2024-09-21 10:22 | XMS_ITS | Encounter Summary ---
Author Organization [facility] Address [address] [place] [address] Care Team Providers Care Imagery Intelligence Name Role Phone Jignesh Serna MD Primary Care Provider [phone] Encounter Details Date Type Department Care Team [...] 01/12/2025 10:00 AM EST [facility] [address] [place] [address] Jignesh Serna MD [address] [place] [address] documented as of this encounter Procedures Procedure Name Priority Date/Time Associated Diagnosis Comments XR WRIST LT MIN 3 V 02/04/2024 6 :26 AM EST documented in this encounter Results * XR WRIST LT MIN 3 V (02/04/2024 6:26 AM EST) Anatomical Region Laterality Modality Radiographic Jada ging 02/04/2024 6:26 AM EST Narrative 02/04/2024 6:29 AM EST [place] [id number] XRay Report Signed Patient: PEPPER LACY MR#: [id number] : 1955 Acct:[id number] Age/Sex: 68 / F ADM Date: 02/03/24 Loc: EC Attending Dr: Anum Barrientos M.D. Ordering Physician: Anum Barrientos M.D. Date of Service: 02/03/24 Procedure(s): XR wrist LT min 3V Accession Number(s): [id number] cc: Anum Barrientos M.D.; Jignesh Serna M.D. [place] [id number] Patient Name: PEPPER LACY MRN: [id number] date: 1955 Sex: F Assigned Patient Location: Current Patient Location: Accession/Order Number: [id number] Exam Date: 02/03/2024 08:24 Report Date: 02/04/2024 [...] M.D. Signed By: 02/04/24628 DD/ 5 TD/TT: Program Director/Air Personality: Procedure Note Radiology, Radiologist, MD - 02/04/[address] [address] XRay Report Signed Patient: PEPPER LACY DMR#: [id number] : 1955ct:[id number] Age/Sex: 68 / FADM Date: 02/03/24 Loc: EC Attending Dr: Anum Barrientos M.D. Ordering Physician: Anum Barrientos M.D. Date of Service: 02/03/24 Procedure(s): XR wrist LT min 3V Accession Number(s): [id number] cc: Anum Barrientos M.D.; Jignesh Serna M.D. The [place] [address] Patient Name: PEPPER LACY MRN: [id number] date: 1955 Sex: F Assigned Patient Location: Current Patient Location: Accession/Order Number: [id number] Exam Date: 02/03/2024 08:24 Report Date: 02/04/2024 [...] Boyd M.D. Signed By:02/04/24628 DD/ 5 TD/TT: Program Director/Air Personality: us Generic External Data Provider IMG XR PROCEDURES Final Result documented in this encounter Visit Diagnoses Not on filedocumented in this encounter Additional Health Concerns Assessment Noted Time PHQ-9 Depression Total Score: 0 01/08/20 24 11:00 AM EST documented as of this encounter Care Teams Imagery Intelligence Relationship Specialty Start Date End Date Jignesh Serna MD [address] [place] [address] PCP - General Family Medicine 04/11/23 documented as of this encounter
--- OUTSIDE RECORDS SUMMARY | 2024-09-21 10:22 | XMS_ITS | Encounter Summary ---
Author Organization [facility] Address [address] [place] [address] Care Team Providers Care Bathroom Tiling Professional Name Role Phone Jignesh Serna MD Primary Care Provider [phone] Jignesh Serna MD Primary Care Provider [phone] Encounter Details Date Type Department Care Team (Late st Contact Info) Description 02/28/2023 Clinisync Result Encounter [facility] External Department Unsolicited Jignesh Serna MD [address] [place] [address] Social History Tobacco Use Types Packs/Day Years [...] 01/12/2025 10:00 AM EST [facility] [address] [place] [address] Jignesh Serna MD [address] [place] [address] documented as of this encounter Procedures Procedure Name Priority Date/Time Associated Diagnosis Comments MM TOMOSYNTHESIS SCREENING BI 02/28/2023 2:06 PM EST documented in this encounter Results * MM TOMOSYNTHESIS SCREENING BI (02/28/2023 2:06 PM EST) Anatomical Region Laterality Modality Other 02/28/2023 2:06 PM EST Narrative 02/28/2023 2:07 [place] [address] Mammography Report Signed Patient: PEPPER LACY MR#: [id number] : 1955 Acct:[id number] Age/Sex: 67 / F ADM Date: 02/28/23 Loc: MAMMO Attending Dr: Jignesh Serna M.D. Ordering Physician: Jignesh Serna M.D. Results: Date of Service: 02/28/23 Follow Up: Procedure(s): MM tomosynthesis screening BI Accession Number(s): [id number] cc: Jignesh Serna M.D. Patient Name: PEPPER LACY MR#: [id number] : 1955 Exam Date: 02/28/2023 Ordering Doctor: [...] prostate cancer at age 72. LOCATION: The [facility] BREAST COMPOSITION: Scattered areas fibroglandular density. FINDINGS: [...] Boyd M.D. Signed By: 02/28/23 1407 DD/ 140 TD/TT: Supervisor Reactor Fueling: Procedure Note Radiology, Radiologist, MD - 02/28/2023 [place] [address] Mammography Report Signed Patient: PEPPER LACY DMR#: [id number] : 5Acct:[id number] Age/Sex: 67 / FADM Date: 02/28/23 Loc: MAMMO Attending Dr: Jignesh Serna M.D. Ordering Physician: Jignesh Serna M.D.Results: Date of Service: 02/28/23Follow Up: Procedure(s): MM tomosynthesis screening BI Accession Number(s): [id number] cc: Jignesh Serna M.D. Patient Name: PEPPER LACY MR#: [id number] : 1955 Exam Date: 02/28/2023 Ordering Doctor: [...] prostate cancer at age 72. LOCATION: The [facility] BREAST COMPOSITION: Scattered areas fibroglandular density. FINDINGS: [...] M.D. Signed By:02/28/23 1407 DD/ 1406 TD/TT: Supervisor Reactor Fueling: Jignesh Serna MD [facility] Final Result documented in this encounter Visit Diagnoses Not on filedocumented in this encounter Care Teams Bathroom Tiling Professional Relationship Specialty Start Date End Date Jignesh Serna MD PCP - General Family Medicine 02/19/23 04/10/23 Jignesh Serna MD [address] [place] [address] PCP - General Family Medicine 04/11/23 documented as of this encounter
--- OUTSIDE RECORDS SUMMARY | 2024-09-21 10:22 | XMS_ITS | Encounter Summary ---
Author Organization [facility] Address [address] [facility] [place] [address] Care Team Providers Care Sas Programmer Analyst Name Role Phone Jignesh Serna MD Primary Care Provider [phone] Encounter Details Date Type Department Care Team (Late Contact Info) Description 11/15/2023 Orders Only [facility] [address] [place] [address] Lewis Osei MD [address] [place] [address] Social History Tobacco Use Types Packs/Day Years [...] 10:00 AM EST Office Visit [facility] [address] [place] [address] Jignesh Serna MD [address] [place] [address] documented as of this encounter Procedures Procedure [...] on filedocumented in this encounter Care Teams Sas Programmer Analyst Relationship Specialty Start Date End Date Jignesh Serna MD [address] [place] [address] PCP - General Family Medicine 04/11/23 documented as of this encounter
--- OUTSIDE RECORDS SUMMARY | 2024-09-21 10:22 | XMS_ITS | Patient Health Record ---
Author Organization [facility] Address [address] [place] [address] Care Team Providers Care Aircraft Body Repairer Name Role Phone Jignesh Serna Primary Care Provider Javier Cheung Unavailable [phone] Marcia Maryellen Unavailable [phone] Allergies No Known Allergies Results Component Value Reference Range Notes SCC- WRIST 3 VIEW LEFT 80056 Reviewed date:03/17/2024 03:44:51 PM Interpretation: Performing Lab: Notes/Report: SCC- WRIST 3 VIEW LEFT 41490 Reviewed date:03/10/2024 04:05:14 PM Interpretation: Performing Lab: Notes/Report: SCC- WRIST 3 VIEW LEFT 89220 Reviewed date:01/16/2024 10:59:08 AM Interpretation: Performing Lab: Notes/Report: Surgery Scheduling Reviewed date:12/26/2023 08:44:42 AM Interpretation: Performing Lab: Notes/Report: Social Sec number: [id number] Primary Insurance Company: MEDICARE Surgeon/Assist: BARRIENTOS Surgery Location: [facility] Surgery Date & Time: 11/25/23 Surgery End Time: ONE HOUR Procedure: LEFT DISTAL RADIUS O PEN REDUCTION INTERNAL FIXATION, [address] Special Equipment: SYNTHES C-Arm: YES Diagnosis: S52.532A Admission Type: OUTPATIENT Anesthesia Type/CPNB: GENERAL Post-op Appointment Date: 2 WEEKS Latex Allergy NO Lab Location: [facility] Bow Machine Operator: [facility] Reason For Referral Reason MELISSA................. PLEASE OBTAIN AUTHORIZATION FOR LEFT DISTAL RADIUS OPEN REDUCTION INTERNAL FIXATION [place] 11/18/2023 01:21:38 PM >Cpt code 96618 Diagnosis 1 Closed Colles' fract ure of left radius, initial encounter (S52.532A) Referral Organization [facility] Referring Provider First Name Javier Referring Provider Last Name Cesia Referring Provider Speciality Orthopedic Surgery Referred Organization [facility] Outpatient Referred Address [address] [facility] [place],[address],[place] General Notes Sarah Raygoza 024 12:09:55 PM >NEED SX CODE VIANNEY Idalia Sweeneyd 11/18/2023 01:21:38 PM >Cpt code 12239, Sarah Raygoza 11/18/2023 01:36:07 PM >PER CODE BRUISE TRIMMER NO AUTH REQUIRED MA NOTIFIED REF FAXED TO [facility] Referral Priority Urgent Social History Tobacco Use: Social History Observation Description Date Details (start date - stop date) Never Smoker NA - NA AUDIT-C (Standard) Question Answer Notes Did you have a drink contain ing alcohol in the past year? Yes How often did you have six o r more drinks on one occasion in the past year? Never (0 point) How many drinks did you have on a typical day when you were drinking in the past year? 1 or 2 drinks (0 point) How often did you have a dri nk containing alcohol in the past year? 2 to 4 times a month (2 points) Points 2 Interpretation Negative Tobacco Control (Standard) Question Answer Notes Tobacco use: Nonsmoker Problems Problem Type SNOMED Code ICD Code Onset Dates Problem Status W/U Status Risk Notes Problem 00238222 Other intraarticular fracture of lower end of left radius, initial encounter for closed fracture (S52.572A) Active confirmed Problem 63417318 Other intraarticular fracture of lower end of left radius, subsequent encounter for closed fracture with routine healing (S52.572D) Active confirmed Problem 37403634 Displaced fractu re of left ulna styloid process, subsequent encounter for closed fracture with routine healing (S52.612D) Active confirmed Problem 91900937 Closed displaced fracture of styloid process of left ulna, initial encounter (S52.612A) Active confirmed Vital Signs Height 5'6 in 02/03/2024 Weight 160 lbs 02/03/2024 BMI 25.82 02/03/2024 Encounters Encounter Location Date Provider Diagnosis [facility] Office [address] [place] [address] [place] [address] 11/18/2023 Javier Barrientos Other intraarticular fracture of lower end of left radius, initial encounter for closed fracture S52.572A and Closed displaced fracture of styloid process of left ulna, initial encounter S52.612A [facility] [address] [facility] [place] [place] [address] 11/25/2023 Javier Barrientos Other intraarticular fracture of lower end of left radius, initial encounter for closed fracture S52.572A [address] [place] [address] [place] [address] 12/09/[address] [facility] Closed Colles' fracture of left radius, initial encounter S52.532A and Other intraarticular fracture of lower end of left radius, initial encounter for closed fracture S52.572A [address] [place] [address] [place] [address] 01/06/2024 Javier Barrientos Displaced fracture o f left ulna styloid process, subsequent encounter for closed fracture with routine healing S52.612D and Other intraarticular fracture of lower end of left radius, subsequent encounter for closed fracture with routine healing S52.572D [address] [place] [address] [place] [address] 02/03/2024 Javier Barrientos Displaced fracture o f left ulna styloid process, subsequent encounter for closed fracture with routine healing S52.612D and Other intraarticular fracture of lower end of left radius, subsequent encounter for closed fracture with routine healing S52.572D [address] [place] [address] 03/16/[address] [facility] Other intraarticular fracture of lower end of left radius, subsequent encounter for closed fracture with routine healing S52.572D and Displaced fracture of left ulna styloid process, subsequent encounter for closed fracture with routine healing S52.612D Assessments Encounter Date Diagnosis (ICD Code) Assessment Notes Treatment Notes Treatment Clinical Notes Section Notes 11/18/2023 Other intraarticular fracture of lower end of left radius, initial encounter for closed fracture (ICD-10 - S52.572A) 11/18/2023 Closed displaced fracture of styloid process of left ulna, initial encounter (ICD-10 - S52.612A) 11/25/2023 Other intraarticular fracture of lower end of left radius, initial encounter for closed fracture (ICD-10 - S52.572A) 12/09/2023 Other intraarticular fracture of lower end of left radius, initial encounter for closed fracture (ICD-10 - S52.572A) 12/09/2023 Closed Colles' fracture of left radius, initial encounter (ICD-10 - S52.532A) 01/06/2024 Other intraarticular fracture of lower end of left radius, subsequent encounter for closed fracture with routine healing (ICD-10 - S52.572D) 01/06/2024 Displaced fracture of left ulna styloid process, subsequent encounter for closed fracture with routine healing (ICD-10 - S52.612D) 02/03/2024 Other intraarticular fracture of lower end of left radius, subsequent encounter for closed fracture with routine healing (ICD-10 - S52.572D) 02/03/2024 Displaced fracture of left ulna styloid process, subsequent encounter for closed fracture with routine healing (ICD-10 - S52.612D) 03/16/2024 Other intraarticular fracture of lower end of left radius, subsequent encounter for closed fracture with routine healing (ICD-10 - S52.572D) 03/16/2024 Displaced fracture of left ulna styloid process, subsequent encounter for closed fracture with routine healing (ICD-10 - S52.612D) 11/18/2023 Other For her left distal radius fracture I have discussed both surgical and nonsurgical treatment options. She reports her mother had a distal radius fracture treated nonoperatively and she did not do well with nonoperative treatment. Her preference is surgical intervention invention which is also my recommendation. I discussed risks of surgery including but not limited to risk of infection, loss of motion and persistent postoperative pain. We have gone through additional risks and the informed consent process which she understands and has elected to proceed with. This will serve as the H & P. Import medication 12/09/2023 Other Patient doing w ell overall postoperatively from her left wrist ORIF of distal radius fracture. I have reapplied Steri-Strips to her incision as there is a small area of dehiscence that is superficial. Patient educated on wound care. I have ordered a cock up wrist brace for her to wear and I have also ordered physical therapy that she can start. We will see her back in 4 weeks for x-rays out of the splint. 01/06/2024 Other Patient is doing well after distal radius ORIF. She will continue with therapy. She will avoid any lifting more than 10 to 15 pounds. She will follow-up in 4 weeks to repeat x-rays and reassess her progress. Import medication 02/03/2024 Other Patient is doing well after distal radius ORIF. She will continue to progress activities as tolerated. She will follow-up in 6 weeks to repeat x-rays and reassess her progress. Import medication 03/16/2024 Other Patient is doin g well after a left distal radius ORIF in November. She is now almost 4 months out from surgery with return of full ROM. We will see her back on an as-needed basis. Plan Of Treatment Pending Test Test Name Order Date CBC with diff, BMP, EKG 11/18/2023 SCC- PT/OT EVAL AND TREAT 3X/WEEK FOR 4 WEEKS 12/09/2023 SCC- WRIST 3 VIEW LEFT [address] 12/09/2023 Insurance Providers Payer Name Payer Address Payer Phone Subscriber Number Group Number Insured Name Patient Relationship to Insured Coverage Start Date Coverage End Date Medicare [facility] Jeanie [employer] [address] [place] [address] [id number] RADHA ERNANDEZ Self - patient is the insured Medical (General) History Medical History History ICD Code Asthma/COPD: yes Respiratory problems: Surgical History Surgery Date(Month/Year) ORIF of a left distal radius fracture
--- NOTE | 2024-09-21 10:24 | US_ITS ---
[address] [address] Patient Name: RADHA ERNANDEZ MRN: [id number] date: 1955 Sex: F Assigned Patient Location: US Current Patient Location: US Accession/Order Number: [id number] Exam Date: 09/21/2024 11:01 Report Date: 09/21/2024 11:03 At the request of: MANUELITO SAEZ MD Procedure: US right upper quadrant LIMITED ABDOMINAL ULTRASOUND: CLINICAL HISTORY: Abdominal Distention, Generalized Abdominal Pain COMPARISON: None TECHNIQUE: Grayscale and color Doppler images of the right upper quadrant organs were obtained. FINDINGS: Pancreas: Visualized portions appear unremarkable. Liver: Fatty infiltration. No focal mass or intrahepatic bile duct dilatation. Hepatopedal flow seen within the portal vein. Gallbladder: Cholelithiasis. No wall thickening. Negative Hooper sign. CBD: 9 mm RT KIDNEY: No Hydronephrosis US/US right upper quadrant IMPRESSION: FATTY INFILTRATION OF THE LIVER WITH CHOLELITHIASIS. MILD DILATATION OF THE CBD. IF CHOLEDOCHOLITHIASIS IS OF CLINICAL CONCERN, MRCP IS SUGGESTED.. Impression dictated by: Quetnin Foley Jr., D.O. 09/21/2024 11:03 AM Dictation Location: [place] [address] Electronically authenticated by: [id number] Y Date: 09/21/2024 11:03
[2024-09-21 11:06] LABS: Hematocrit 47.4 % (36.0-48.0); Hemoglobin 16.2 g/dL (12.0-16.0); Immature Granulocytes Abs Auto 0.01 10^3/uL (0.00-0.03); Immature Granulocytes Pct Auto 0.1 % (0.0-0.5); Lymphocytes Absolute Auto 2.5 10^3/uL (1.2-3.8); Mean Corpuscular HGB Conc 34.2 g/dL (29.9-35.2); Mean Corpuscular Hemoglobin 31.9 pg (26.7-34.0); Mean Corpuscular Volume 93.3 fL (81.0-99.0); Platelet Count 282 10^3/uL (150-450); Red Blood Count 5.08 10^6/uL (4.20-5.40); White Blood Count 6.7 10^3/uL (4.0-11.0)
[2024-09-21 11:48] LABS: Alanine Aminotransferase 48 U/L (14-59); Albumin Globulin Ratio 1.0; Albumin Level 3.5 g/dL (3.4-5.0); Alkaline Phosphatase 77 U/L (46-116); Anion Gap 12.9; Aspartate Amino Transferase 28 U/L (15-37); Blood Urea Nitrogen 12.0 mg/dL (7.0-18.0); Calcium 8.8 mg/dL (8.5-10.1); Carbon Dioxide 30.5 mmol/L (21.0-32.0); Chloride 107 mmol/L (98-107); Estimated GFR (African America >60 (>=60 mL/min/1.73m^2); Estimated GFR (Non-African Ame >60 (>=60 mL/min/1.73m^2); Globulin 3.4 g/dL; Glucose 122 mg/dL (74-106); Potassium 4.4 mmol/L (3.5-5.1); Sodium 146 mmol/L (136-145); Total Protein 6.9 g/dL (6.4-8.2)
== END 2024-09-21 10:20 | disposition home or self-care (01) ==
LOC: US 10:20
PROVIDERS: PCP Family Medicine; Visit Provider Family Medicine
DX: R10.84 Generalized abdominal pain (principal); I10 Essential (primary) hypertension; Z79.899 Other long term (current) drug therapy; K76.0 Fatty (change of) liver, not elsewhere classified; K80.20 Calculus of gallbladder without cholecystitis without obstruction
CPT/HCPCS: 36415; 76705; 80048; 80076; 85025

== ENCOUNTER 2024-10-22 07:48 | Outpatient (OUT) | payer OTHER, BC, SELFPAY ==
--- OUTSIDE RECORDS SUMMARY | 2024-10-13 10:00 | XMS_ITS | Encounter Summary ---
Author Organization [facility] Address [address] [place] [address] Care Team Providers Care Animal Cop Name Role Phone Jignesh Serna MD Primary Care Provider [phone] Reason for Referral * Consultation (Routine) - Closed Specialty Diagnoses / Procedures Referred By Contac t Referred To Contact General Surgery Diagnoses Calculus of gallbladder without cholecystitis without obstruction Abdominal pain, generalized Procedures MT OFFICE/OUTPATIENT NEW HIGH MDM 60 MINUTES Jignesh Serna MD [address] [place] [address] Phone: tel: fax: Jose Raul Beatty DO [address] [place] [address] Phone: tel: fax: Referral ID Status Reason Start Date Expiration Date V isits Requested Visits Authorized [id number] Closed Specialty Services Required 10/13/2024 04/11/2025 1 1 * (Routine) - Authorized Specialty Diagnoses / Procedures Referred By Contac t Referred To Contact Radiology Diagnoses Lower extremity edema Procedures Vascular US lower extremity venous insufficiency left Jignesh Serna MD [address] [place] [address] Phone: tel: fax: Referral ID Status Reason Start Date Expiration Date V isits Requested Visits Authorized [id number] Authorized 10/13/2024 04/11/2025 1 1 Reason for Visit * Reason Comments Follow-up Discuss test results Encounter Details Date Type Department Care Team (Late st Contact Info) Description 10/13/2024 10:00 AM EDT Office Visit [facility] [address] [place] [address] Jignesh Serna MD [address] [place] [address] Lower extremity edema (Primary Dx); Calculus of gallbladder without cholecystitis without obstruction; Abdominal pain, generalized; Essential hypertension, benign ; Nonalcoholic fatty liver Social History Tobacco Use Types Packs/Day Years [...] Sign Reading Time Taken Comments Blood Pressure 138/78 10/13/2024 10:09 AM EDT Pulse 71 10/13/2024 10:09 AM EDT Temperature 35.8 C (96.4 F) 10/13/2024 10:09 AM EDT Respiratory Rate 22 10/13/2024 10:09 AM EDT Oxygen Saturation 94% 10/13/2024 10:09 AM EDT Inhaled Oxygen Concentration - - Weight 85.7 kg (189 lb) 10/13/2024 10:09 AM EDT Height 167.6 cm (5' 6 ) 10/13/2024 10:09 AM EDT Body Mass Index 30.51 10/13/2024 10:09 AM EDT documented in this encounter Progress Notes * Jignesh Serna MD - 10/13/2024 10:45 AM EDTAssociated Problem(s): Nonalcoholic fatty liver Need to limit alcohol intake. Need to control cholesterol and BS. * Jignesh Serna MD - 10/13/2024 10:45 AM EDTAssociated Problem(s): Lower extremity edema Edema slightly improved with aldactone but remains and stop norvasc. Check US leg. * Jignesh Serna MD - 10/13/2024 10:45 AM EDTAssociated Problem(s): Essential hypertension, benign BP controlled but potential edema due to norvasc and stop. Monitor BP PRN. Discussed DASH diet. * Jignesh Serna MD - 10/13/2024 10:44 AM EDTAssociated Problem(s): Calculus of gallbladder without cholecystitis without obstruction Occasional pain and stones in gallbladder. Refer to surgeon for evaluation. * Jignesh Serna MD - 10/13/2024 10:44 AM EDTAssociated Problem(s): Abdominal pain, generalized Occasional pain and stones in gallbladder. Refer to surgeon for evaluation. * Jignesh Serna MD - 10/13/2024 10:00 AM EDT Images from the original note were not included. Subjective Patient ID: Pepper Lacy is a 69 y.o. female who presents for Follow-up (Discuss test results). Follow up abdominal pain and edema. Last visit had labs and US RUQ due to pain. US showed fatty liver and gallstones. Continues to have abdominal discomfort. Pain and bloating in upper abdomen and worse after eating. Often pain in right scapula. Edema unchanged. Continued swelling in left calf and lower leg. Skin tight and tender with palpation. Added aldactone and normal. Labs normal. Echo scheduled 10/15. Taking norvasc for HTN and BP normal. Review of Systems Respiratory: Negative for cough, [...] This Visit Essential hypertension, benign BP controlled but potential edema due to norvasc and stop. Monitor BP PRN. Discussed DASH diet. Lower extremity edema - Primary Edema slightly improved with aldactone but remains and stop norvasc. Check US leg. Relevant Orders Vascular US lower extremity venous duplex left Vascular US lower extremity venous insufficiency left Abdominal pain, generalized Occasional pain and stones in gallbladder. Refer to surgeon for evaluation. Relevant Orders Ambulatory referral to General Surgery Calculus of gallbladder without cholecystitis without obstruction Occasional pain and stones in gallbladder. Refer to surgeon for evaluation. Relevant Orders Ambulatory referral to General Surgery Nonalcoholic fatty liver Need to limit alcohol intake. Need to control cholesterol and BS. documented in this encounter Plan of Treatment Upcoming Encounters Date Type Department Care Team (Late st Contact Info) Description 01/12/2025 10:00 AM EST Office Visit [facility] [address] [place] [address] Jignesh Serna MD [address] [place] [address] Scheduled Orders Name Type Priority Associated Diagnoses Orde r Schedule Vascular US lower extremity venous duplex left Imaging Routine Lower extremity edema Expected: 10/13/2024, Expires: 10/13/2025 Vascular US lower extremity venous insufficiency left Imaging Routine Lower extremity edema Expected: 10/13/2024, Expires: 10/13/2025 Scheduled Referrals Name Type Priority Associated Diagnoses Orde r Schedule Ambulatory referral to General Surgery Outpatient Referral Routine Calculus of gallbladder without cholecystitis without obstruction Abdominal pain, generalized Expected: 10/13/2024 (Approximate), Expires: 04/15/2025 documented as of this encounter Visit Diagnoses Diagnosis Lower extremity edema- Primary Edema Calculus of gallbladder without cholecystitis without obstruction Abdominal pain, generalized Essential hypertension, benign Essential hypertension, benign Nonalcoholic fatty liver documented in this encounter Additional Health Concerns Assessment Noted Time PHQ-9 Depression Total Score: 0 01/08/20 24 11:00 AM EST documented as of this encounter Care Teams Animal Cop Relationship Specialty Start Date End Date Jignesh Serna MD [address] [place] [address] PCP - General Family Medicine 04/11/23 documented as of this encounter
--- OUTSIDE RECORDS SUMMARY | 2024-10-21 10:00 | XMS_ITS | Encounter Summary ---
Author Organization [employer] tem Address [id number] [address] [place] [address] Care Team Providers Care Natural Foods Clerk Name Role Phone Jignesh Serna MD Primary Care Provider [phone] Reason for Referral * Diagnostic Imaging (Routine) - Pending Review Specialty Diagnoses / Procedures Referred By Contac t Referred To Contact Radiology Diagnoses Asymptomatic cholelithiasis Procedures NM hepatobiliary system imaging with pharmacologic agent Jose Raul Beatty DO [address] [place] [address] Phone: tel: fax: Referral ID Status Reason Start Date Expiration Date V isits Requested Visits Authorized [id number] Pending Review 10/21/2024 10/21/2025 5 5 * Diagnostic Imaging (Routine) - Pending Review Specialty Diagnoses / Procedures Referred By Contac t Referred To Contact Radiology Diagnoses Bilateral upper abdominal pain Left lower quadrant abdominal pain Procedures CT abdomen and pelvis with contrast Jose Raul Beatty DO [address] [place] [address] Phone: tel: fax: Referral ID Status Reason Start Date Expiration Date V isits Requested Visits Authorized [id number] Pending Review 10/21/2024 10/21/2025 1 1 * Diagnostic Imaging (Routine) - Pending Review Specialty Diagnoses / Procedures Referred By Contac t Referred To Contact Radiology Diagnoses Chest pain, unspecified type Procedures CT chest with contrast Jose Raul Beatty DO [address] [place] [address] Phone: tel: fax: Referral ID Status Reason Start Date Expiration Date V isits Requested Visits Authorized [id number] Pending Review 10/21/2024 10/21/2025 1 1 Reason for Visit * Reason Comments Cholelithiasis Calculus of gallblad jordon, abdominal pain, referred by Dr. Serna * Consultation (Routine) - Closed Specialty Diagnoses / Procedures Referred By Contac t Referred To Contact General Surgery Diagnoses Calculus of gallbladder without cholecystitis without obstruction Generalized abdominal pain Procedures DC OFFICE OUTPATIENT VISIT 60-74 MINS HIGH MDM [id number] (SNOMED CT) - AMB REFERRAL TO GENERAL SURGERY Jignesh Serna MD [address] [place] [address] Phone: tel: fax: Jose Raul Beatty DO [address] [place] [address] Phone: tel: fax: Referral ID Status Reason Start Date Expiration Date Visits Re quested Visits Authorized [id number] Closed 10/13/2024 04/11/2025 1 1 Encounter Details Date Type Department Care Team (Latest Contact Info) Description 10/21/2024 10:00 AM EDT Office Visit [facility] [address] [place] [phone] [place] [address] [place], [place] [id number] Chest pain, unspecified type (Primary Dx); Bilateral upper abdominal pain; Left lower quadrant abdominal pain; Asymptomatic cholelithiasis Social History Tobacco Use Types Packs/Day Years Used Date Smoking Tobacco: Former Cigarettes Q uit: 06/05/2017 Smokeless Tobacco: Never Tobacco Cessation:Counseling Given: Not Answered Alcohol Use Standard Drinks/Week Comments Yes 0 (1 standard drink = 0.6 oz pur e alcohol) socailly Childcare Answer Date Recorded Childcare Unknown 08/13/2018 Employment Answer Date Recorded Employment Unknown 08/13/2018 Hunger Screening Answer Date Recorded Within the past 12 months we worried whether our food would run out before we got money to buy more. Never True 10/21/2024 Within the past 12 months th e food we bought just didn't last and we didn't have money to get more. Never True 10/21/2024 Purpose - Life Answer Date Recorded Purpose and direction in life Unknown Comments No Sex and Gender Information Value Date Recorded Sex Assigned at Not on file Legal Sex Female 11:50 AM EDT Gender Identity Not on file Sexual Orientation Not on file documented as of this encounter Last Filed Vital Signs Vital Sign Reading Time Taken Comments Blood Pressure 132/85 10/21/2024 10:05 AM EDT Pulse 70 10/21/2024 10:05 AM EDT Temperature - - Respiratory Rate - - Oxygen Saturation - - Inhaled Oxygen Concentration - - Weight 85.1 kg (187 lb 9.6 oz) 10/21/2024 10:05 AM EDT Height 167.6 cm (5' 6 ) 10/21/2024 10:05 AM EDT Body Mass Index 30.28 10/21/2024 10:05 AM EDT documented in this encounter Progress Notes * Jose Raul Beatty, DO - 10/21/2024 10:00 AM EDT Images from the original note were not included. [facility] [address] [facility] [id number] CONSULT NOTE CHIEF COMPLAINT Chief Complaint Patient presents with Cholelithiasis Calculus of gallbladder, abdominal pain, referred by Dr. Kareem Pabon Yeimy Lacy is a 69 y.o. female accompanied by her mother with complaints of bilateral upper abdominal/lower chest pain which feels like ???grabbing?? for the last few months. She states that she has been coughing a lot lately iand her lungs fill up with fluid and when coughing it feels likeshe could throw up at times but most of the time it is phlegm. She stated that her primary care physician was to prescribe medication but she has not heard from them. I recommended that she follow upwith her PCP. She describes the pain as sharp 7-10 at times. Denies any fevers alex-colored stools or jaundice. She had an ultrasound of the gallbladder performed at the [facility] on September 21, 2024 which showed fatty infiltration of the liver with cholelithiasis with mild dilatation of the common bile duct and no wall thickening of the gallbladder and negative Hooper sign. She can not remember when she last had a colonoscopy but it was done at [facility]. She has a historyof polyps in the past but the most recent colonoscopy which he can not remember the date of did [facility] any polyps. She denies any mouth melena or hematochezia. She quit smoking earlier this year but has a 50 pack-year history of tobacco use. She admits to shortness of breath at times. She is retired. She has a history of having had right tubal many years ago for which he has a lower midline incision. MEDICATION Current Outpatient Medications: albuterol (PROVENTIL HFA;VENTOLIN HFA) 90 mcg/actuation inhaler, Inhale 2 puffs every 6 (six) hoursas needed for wheezing., Disp: , Rfl: albuterol (PROVENTIL,VENTOLIN) 2.5 mg /3 mL (0.083 %) nebulizer solution, , Disp: , Rfl: amLODIPine (NORVASC) 5 mg tablet, Take 1 tablet (5 mg total) by mouth in the morning., Disp: , Rfl: cholecalciferol, vitamin D3, 2,000 units capsule, Take by mouth in the morning., Disp: , Rfl: omeprazole (PriLOSEC) 40 mg capsule, Take 1 capsule (40 mg total) by mouth in the morning., Disp: ,Rfl: spironolactone (ALDACTONE) 25 mg tablet, Take 1 tablet (25 mg total) by mouth in the morning., Disp: , Rfl: BREO ELLIPTA 200-25 mcg/dose blister with device, INHALE 1 PUFF BY MOUTH EVERY DAY (Patient not taking: Reported on 10/21/2024), Disp: , Rfl: 11 cholecalciferol, vitamin D3, 2,000 units tablet, Take 1 tablet by mouth daily. (Patient not taking:Reported on 10/21/2024), Disp: , Rfl: ALLERGY No Known Allergies MEDICAL HISTORY Past Medical History: Diagnosis Date Asthma COPD (chronic obstructive pulmonary disease) ([facility]) GERD (gastroesophageal reflux disease) Hypertension SURGICAL HISTORY Past Surgical History: Procedure Laterality Date COLONOSCOPY COLONOSCOPY N/A 10/09/2018 Performed by Jose Raul Beatty DO at [facility] LOCAL EXCISION SKIN TAG Right 10/09/2018 Performed by Jose Raul Beatty DO at [facility] TUBAL LIGATION WRIST FRACTURE SURGERY Left 02/2024 SOCIAL HISTORY Social History Socioeconomic History Marital status: Spouse name: Not on file Number of children: Not on file Years of education: Not on file Highest education level: Not on file Occupational History Not on file Tobacco Use Smoking status: Former Current packs/day: 0.00 Types: Cigarettes Quit date: 06/05/2017 Years since quittin.3 Smokeless tobacco: Never Vaping Use Vaping status: Never Used Substance and Sexual Activity Alcohol use: Yes Comment: socailly Drug use: No Sexual activity: Defer Other Topics Concern Not on file Social History Narrative Not on file Social Drivers of Health Financial Resource Strain: Not on file Food Insecurity: No Food Insecurity (10/21/2024) Hunger Screening Food Insecurity - Worry: Never True Food Insecurity - Inability: Never True Transportation Needs: Not on file Physical Activity: Not on file Stress: Not on file Social Connections: Not on file Interpersonal Safety: Not on file Housing Instability: Not on file FAMILY HISTORY Family History Problem Relation Age of Onset Cancer Father REVIEW OF SYSTEMS: Constitutional: Denies fevers, denies recent illnesses. Eyes: Denies any vision changes. ENT: Denies any throat pain. Neck: Denies any neck pain. Cardiovascular : Positive lower chest pain; Denies palpitations. Respiratory: Positive shortness of breath, positive cough, positive COPD Gastrointestinal: Negativefor abdominal pain, nausea, melena, hematochezia, weight loss, change in bowel habits or weight loss or emesis. Genitourinary negative for dysuria hematuria urinary frequency or urgency. Musculoskeletal: Negative for extremity pains or joint discomfort. Neurologic: No change in sensation or paresthesias or history of seizure disorder skin: No rashes. Hematologic: No anemia. No purpura. No petechiae and no prolonged or excessive bleeding Allergic and immunologic: No pruritus. No swelling. Endocrine: No unexplained weight loss. No polydipsia. No polyuria. No polyphagia. PHYSICAL EXAM Constitutional: She is oriented to person, place, and time. Vital signs are normal. She appears well-developed and well-nourished. HEENT: Head: Normocephalic and atraumatic. Eyes: Conjunctivae, EOM and lids are normal. Neck: Trachea normal. Neck supple. No thyroid mass present. Cardiovascular: Normal rate and regular rhythm. Pulmonary/Chest: Effort normal and breath sounds normal. Positive end-expiratory wheezing throughout upper le Abdominal: Soft. Obese with a healed lower midline scar no hernia noted. Tenderness in the left lower quadrant with palpation and fullness present Musculoskeletal: Normal range of motion. Lymphadenopathy: She has no cervical adenopathy. Neurological: She is alert and oriented to person, place, and time. Skin: Skin is warm, dry and intact. Psychiatric: She has a normal mood and affect. Her speech is normal and behavior is normal. Cognition and memory are normal. IMPRESSION 1. Cholelithiasis asymptomatic rule out cholecystitis 2. Bilateral lower chest pain 3. Bilateral upper abdominal pain 4. Left lower quadrant pain rule out abdominal mass or diverticulitis 5. History of COPD ASSESSMENT & PLAN 1. [facility] HIDA scan to assess gallbladder function 2. CT chest due to tobacco use and lower chest pain to rule out cancer or other etiology 3. CT abdomen and pelvis 4. Return to the office afterwards for further recommendations. I believe her last colonoscopy by me was in 2019 Evaluation included: Preparing to see the patient (e.g., review of tests) Obtaining and/or reviewing separately obtained history Performing a medically appropriate examination and/or evaluation Counseling and educating the patient/family/caregiver Referring and communicating with other health attending ambulatory care - Jose Raul Beatty DO 10/21/24 10:15 AM This note was created with the assistance of a speech recognition program. While intending to generate a timely document that accurately reflects the content of the visit, no guarantee can be provided that every grammatical or spelling mistake has been or will be identified or corrected. Thank you for your understanding. documented in this encounter Plan of Treatment Scheduled Orders Name Type Priority Associated Diagnoses Orde r Schedule CT chest with contrast Imaging Routine Chest pain, unspecified type Expected: 10/21/2024, Expires: 10/21/2025 CT abdomen and pelvis with contrast Imaging Routine Bilateral upper abdominal pain Left lower quadrant abdominal pain Expected: 10/21/2024, Expires: 10/21/2025 NM hepatobiliary system imaging with pharmacologic agent Imaging Routine Asymptomatic cholelithiasis Expected: 10/21/2024, Expires: 10/21/2025 Creatinine includes GFR, serum Lab Routine Chest pain, unspecified type Bilateral upper abdominal pain Left lower quadrant abdominal pain 1 Occurrences starting 10/21/2024 until 10/21/2025 documented as of this encounter Visit Diagnoses Diagnosis Chest pain, unspecified type- Primary Bilateral upper abdominal pain Left lower quadrant abdominal pain Asymptomatic cholelithiasis documented in this encounter Care Teams Natural Foods Clerk Relationship Specialty Start Date End Date Jignesh Serna MD PCP - General Family Medicine 10/01/18 documented as of this encounter
--- OUTSIDE RECORDS SUMMARY | 2024-10-22 07:50 | XMS_ITS | Patient Health Record ---
Author Organization [facility] Address [address] [place] [address] Care Team Providers Care Dean Of Student Services Name Role Phone Jignesh Serna Primary Care Provider Javier Cheung Unavailable [phone] Marcia Maryellen Unavailable Allergies No Known Allergies Results Component Value Reference Range Notes SCC- WRIST 3 VIEW LEFT 05266 Reviewed date:01/16/2024 10:59:08 AM Interpretation: Performing Lab: Notes/Report: Surgery Scheduling Reviewed date:12/26/2023 08:44:42 AM Interpretation: Performing Lab: Notes/Report: Social Sec number: [id number] Primary Insurance Company: MEDICARE Surgeon/Assist: ILIANA Surgery Location: [facility] Surgery Date & Time: 11/25/23 Surgery End Time: ONE HOUR Procedure: LEFT DISTAL RADIUS O PEN REDUCTION INTERNAL FIXATION, 63156 Special Equipment: SYNTHES C-Arm: YES Diagnosis: S52.532A Admission Type: OUTPATIENT Anesthesia Type/CPNB: GENERAL Post-op Appointment Date: 2 WEEKS Latex Allergy NO Lab Location: [facility] Office Assistance: [facility]ACC SCC- WRIST 3 VIEW LEFT 44218 Reviewed date:03/17/2024 03:44:51 PM Interpretation: Performing Lab: Notes/Report: SCC- WRIST 3 VIEW LEFT 20715 Reviewed date:03/10/2024 04:05:14 PM Interpretation: Performing Lab: Notes/Report: Reason For Referral Reason MELISSA................. PLEASE OBTAIN AUTHORIZATION FOR LEFT DISTAL RADIUS OPEN REDUCTION INTERNAL FIXATION [place] 11/18/2023 01:21:38 PM >Cpt code 32687 Diagnosis 1 Closed Colles' fract ure of left radius, initial encounter (S52.532A) Referral Organization [facility] Referring Provider First Name Javier Referring Provider Last Name Iliana Referring Provider Speciality Orthopedic Surgery Referred Organization [facility] Referred Address [address] [place],[address],[place] General Notes Sarah Raygoza 024 12:09:55 PM >NEED SX CODE VIANNEY Idalia Sweeneyd 11/18/2023 01:21:38 PM >Cpt code 83569, Sarah Raygoza 11/18/2023 01:36:07 PM >PER CODE GENERAL INTERNIST NO AUTH REQUIRED MA NOTIFIED REF FAXED TO [facility] Referral Priority Urgent Social History Tobacco Use: [...] Problem Status W/U Status Risk Notes Problem 27755155 Other intraarticular fracture of lower end of left radius, initial encounter for closed fracture (S52.572A) Active confirmed Problem 60647589 Other intraarticular fracture of lower end of left radius, subsequent encounter for closed fracture with routine healing (S52.572D) Active confirmed Problem 43695158 Displaced fractu re of left ulna styloid process, subsequent encounter for closed fracture with routine healing (S52.612D) Active confirmed Problem 41566576 Closed displaced fracture of styloid process of left ulna, initial encounter (S52.612A) Active confirmed Vital Signs Height 5'6 in 02/03/2024 Weight 160 lbs 02/03/2024 BMI 25.82 02/03/2024 Encounters Encounter Location Date Provider Diagnosis [facility] [address] [place] [address] [place] [address] 11/18/2023 Javier Callaway Other intraarticular fracture of lower end of left radius, initial encounter for closed fracture S52.572A and Closed displaced fracture of styloid process of left ulna, initial encounter S52.612A [facility] [address] [place] [address] 11/25/2023 Javier Callaway Other intraarticular fracture of lower end of left radius, initial encounter for closed fracture S52.572A [address] [place] [address] 12/09/2023 [facility] [place] Closed Colles' fracture of left radius, initial encounter S52.532A and Other intraarticular fracture of lower end of left radius, initial encounter for closed fracture S52.572A [address] [place] [address] 01/06/2024 Javier Callaway Displaced fracture o f left ulna styloid process, subsequent encounter for closed fracture with routine healing S52.612D and Other intraarticular fracture of lower end of left radius, subsequent encounter for closed fracture with routine healing S52.572D [address] [place] [address] 02/03/2024 Javier Callaway Displaced fracture o f left ulna styloid process, subsequent encounter for closed fracture with routine healing S52.612D and Other intraarticular fracture of lower end of left radius, subsequent encounter for closed fracture with routine healing S52.572D [address] [place] [address] 03/16/2024 [facility] [place] Other intraarticular fracture of lower end of [...] WEEKS 12/09/2023 SCC- WRIST 3 VIEW LEFT [address] 12/09/2023 Insurance Providers Payer Name Payer Address Payer Phone Subscriber Number Group Number Insured Name Patient Relationship to Insured Coverage Start Date Coverage End Date Medicare [facility] Jeanie PARRA [address] [place] [address] [id number] RADHA ERNANDEZ Self - patient is the insured Medical (General) History Medical History History ICD Code Asthma/COPD: yes Respiratory problems: Surgical History Surgery Date(Month/Year) ORIF of a left distal radius fracture
--- OUTSIDE RECORDS SUMMARY | 2024-10-22 07:50 | XMS_ITS | Encounter Summary ---
Author Organization [facility] Address [address] [facility] [place] [address] Care Team Providers Care Butt Sawyer Name Role Phone Jignesh Serna MD Primary Care Provider [phone] Encounter Details Date Type Department Care Team (Late Contact Info) Description 11/15/2023 Orders Only [facility] [address] [place] [id number] Lewis Osei MD [address] [place] [address] Social History Tobacco Use Types Packs/Day Years [...] Visit [facility] [address] [place] [address] Jignesh Serna MD [address] [place] [address] documented as of this encounter Procedures Procedure [...] on filedocumented in this encounter Care Teams Butt Sawyer Relationship Specialty Start Date End Date Jignesh Serna MD [address] [place] [address] PCP - General Family Medicine 04/11/23 documented as of this encounter
--- OUTSIDE RECORDS SUMMARY | 2024-10-22 07:50 | XMS_ITS | Encounter Summary ---
Author Organization [facility] Address [address] [place] [address] Care Team Providers Care Chicle Grinder Feeder Name Role Phone Jignesh Serna MD Primary Care Provider [phone] Encounter Details Date Type Department Care Team (Special Care Hospital Contact Info) Description 09/21/2024 Results Follow-Up [facility] [address] [place] [address] Jignesh Serna MD [address] [place] [address] ALL CBC WITH AUTO DIFF, [facility] LIVER PANEL, ALL BASIC METABOLIC PANEL, US RIGHT UPPER QUADRANT Social History Tobacco Use Types Packs/Day Years [...] 01/12/2025 10:00 AM EST Office Visit [facility] [address] [place] [address] Jignesh Serna MD [address] [place] [address] documented as of this encounter Visit Diagnoses Not on filedocumented in this encounter Additional Health Concerns Assessment Noted Time PHQ-9 Depression Total Score: 0 01/08/20 24 11:00 AM EST documented as of this encounter Care Teams Chicle Grinder Feeder Relationship Specialty Start Date End Date Jignesh Serna MD [address] [place] [address] PCP - General Family Medicine 04/11/23 documented as of this encounter
--- OUTSIDE RECORDS SUMMARY | 2024-10-22 07:50 | XMS_ITS | Encounter Summary ---
Author Organization [facility] Address [address] [place] [address] Care Team Providers Care Recreation Technician Name Role Phone Jignesh Serna MD Primary Care Provider [phone] Encounter Details Date Type Department Care Team [...] 01/12/2025 10:00 AM EST [facility] [address] [place] [address] Jignesh Serna MD [address] [place] [address] documented as of this encounter Procedures Procedure Name Priority Date/Time Associated Diagnosis Comments XR WRIST LT MIN 3 V 03/16/2024 8 :47 AM EST documented in this encounter Results * XR WRIST LT MIN 3 V (03/16/2024 8:47 AM EST) Anatomical Region Laterality Modality Radiographic Jada ging 03/16/2024 8:47 AM EST Narrative 03/16/2024 8:50 AM EST [facility] [place] [id number] XRay Report Signed Patient: PEPPER LACY MR#: [id number] : 1955 Acct:[id number] Age/Sex: 68 / F ADM Date: 03/16/24 Loc: [facility] Attending Dr: Anum Barrientos M.D. Ordering Physician: Anum Barrientos M.D. Date of Service: 03/16/24 Procedure(s): XR wrist LT min 3V Accession Number(s): [id number] cc: Anum Barrientos M.D.; Jignesh Serna M.D. The [address] [address] Patient Name: PEPPER LACY MRN: [id number] date: 1955 Sex: F Assigned Patient Location: Current Patient Location: Accession/Order Number: [id number] Exam Date: 03/16/2024 08:26 Report Date: 03/16/2024 [...] Signed By: 03/16/24 0850 DD/ 0847 TD/TT: Visual Basic .Net Developer: Procedure Note Radiology, Radiologist, MD - 03/16/2024 [facility] [place] [id number] XRay Report Signed Patient: PEPPER LACY DMR#: [id number] : 5Acct:[id number] Age/Sex: 68 / FADM Date: 03/16/24 Loc: EC Attending Dr: Anum Barrientos M.D. Ordering Physician: Anum Barrientos M.D. Date of Service: 03/16/24 Procedure(s): XR wrist LT min 3V Accession Number(s): [id number] cc: Anum Barrientos M.D.; Jignesh Serna M.D. [place] [address] Patient Name: PEPPER LACY MRN: [id number] date: 1955 Sex: F Assigned Patient Location: Current Patient Location: Accession/Order Number: [id number] Exam Date: 03/16/2024 08:26 Report Date: 03/16/2024 [...] M.D. Signed By:03/16/24 0850 DD/ 0847 TD/TT: Visual Basic .Net Developer: us Generic External Data Provider IMG XR PROCEDURES Final Result documented in this encounter Visit Diagnoses Not on filedocumented in this encounter Additional Health Concerns Assessment Noted Time PHQ-9 Depression Total Score: 0 01/08/20 24 11:00 AM EST documented as of this encounter Care Teams Recreation Technician Relationship Specialty Start Date End Date Jignesh Serna MD [address] [place] [address] PCP - General Family Medicine 04/11/23 documented as of this encounter
--- OUTSIDE RECORDS SUMMARY | 2024-10-22 07:50 | XMS_ITS | Clinical Summary ---
Author Organization [facility] Healthcare Address [address] [place] [address] Care Team Providers Care Quality Assurance Nurse Name Role Phone Jignesh Saez MD Primary Care Provider [phone] Allergies No known active allergies Medications albuterol HFA 90 mcg/act inhalerIndicati ons:Chronic obstructive pulmonary disease with (acute) exacerbation (HCC),Obstructi ve chronic bronchitis with exacerbation (HCC) INHALE 2 PUFFS EVERY 4 HOURS NEEDED 18 g 2 023 Active omeprazole (PriLOSEC) [address] capsuleIndicati ons:Gastro-esop hageal reflux disease without esophagitis,Eso phageal reflux TAKE 1 CAPSULE BY MOUTH EVERY DAY 90 capsule 3 024 Active alendronate (Fosamax) 70 MG tabletIndicatio ns:Age-related osteoporosis without current pathological fracture Take 1 tablet (70 mg) by mouth every 7 (seven) days Take in the morning with a full glass of water, on an empty stomach, and do not take anything else by mouth or lie down for the next 30 min. 12 tablet 3 024 Active Fluticasone-Alejo meterol 250-50 MCG/ACT aerosol powder Inhale 1 Inhalation Daily 025 Active cholecalciferol (Vitamin D-3) 50 MCG (1999 UT) tabletIndicatio ns:Vitamin D deficiency, unspecified,Vit lynn D deficiency TAKE 1 TABLET BY MOUTH EVERY DAY 30 tablet 5 025 Active spironolactone (Aldactone) 25 MG tabletIndicatio ns:Lower extremity edema Take 1 tablet (25 mg) by mouth Daily 30 tablet 5 025 Active albuterol (2.5 MG/3ML) 0.083% nebulizer solutionIndicat ions:Chronic obstructive pulmonary disease with acute exacerbation (HCC) Take 3 mL (2.5 mg) by nebulization every 4 (four) hours if needed for wheezing or shortness of breath 150 mL 2 025 Active amLODIPine (Norvasc) 10 MG tabletIndicatio ns:Essential (primary) hypertension,Be nign essential hypertension TAKE 1 TABLET BY MOUTH EVERY DAY 90 tablet 3 024 2024 Discontinued predniSONE (Deltasone) 10 MG tabletIndicatio ns:Chronic obstructive pulmonary disease with acute exacerbation (HCC) 6 PO daily x 3 days, 4 PO daily x 3 days, 2 PO daily x 3 days, 1 PO daily x 3 days 39 tablet 025 2024 Discontinued albuterol (2.5 MG/3ML) 0.083% nebulizer solutionIndicat ions:Chronic obstructive pulmonary disease with acute exacerbation (HCC) Take 3 mL (2.5 mg) by nebulization every 4 (four) hours if needed for wheezing or shortness of breath 150 mL 2 025 2024 Discontinued(R eorder) furosemide (Lasix) 40 MG tabletIndicatio ns:Lower extremity edema Take 1 tablet (40 mg) by mouth Daily as needed (Edema) 30 tablet 2 025 2024 Discontinued Active Problems Problem Noted Date Diagnosed Date Calculus of gallbladder with out cholecystitis without obstruction 10/13/2024 Assessment & Plan (10/13/2024 10:44 AM EDT): Occasional pain and stones in gallbladder. Refer to surgeon for evaluation. Nonalcoholic fatty liver 10/13/2024 Assessment & Plan (10/13/2024 10:45 AM EDT): Need to limit alcohol intake. Need to control cholesterol and BS. SOB (shortness of breath) 09/10/2024 Abdominal pain, generalized 09/10/2024 Assessment & Plan (10/13/2024 10:44 AM EDT): Occasional pain and stones in gallbladder. Refer to surgeon for evaluation. Assessment & Plan (09/10/2024 12:11 PM EDT): [...] Essential hypertension, benign 02/19/2023 Assessment & Plan (10/13/2024 10:45 AM EDT): BP controlled but potential edema due to norvasc and stop. Monitor BP PRN. Discussed DASH diet. Assessment & Plan (09/10/2024 12:11 PM EDT): [...] Lower extremity edema 02/19/2023 Assessment & Plan (10/13/2024 10:45 AM EDT): Edema slightly improved with aldactone but remains and stop norvasc. Check US leg. Assessment & Plan (09/10/2024 12:12 PM EDT): [...] Encounters Date Type Department Care Team Description 10/21/2024 Telephone [facility] [place] [address] [place] [phone] Jignesh Saez MD 10/21/2024 Telephone [facility] [address] [place] [phone] Jignesh Saez MD 10/13/2024 10:00 AM EDT Office Visit [facility] [address] [place] [address] Jignesh Saez MD Lower extremity edema (Primary Dx); Calculus of gallbladder without cholecystitis without obstruction; Abdominal pain, generalized; Essential hypertension, benign ; Nonalcoholic fatty liver 10/13/2024 Bamboo flowsheet [facility] [address] [place] [address] Jignesh Saez MD 09/21/2024 Results Follow-Up [facility] [address] [place] [address] Jignesh Saez MD ALL CBC WITH AUTO DIFF, HP LIVER PANEL, ALL BASIC METABOLIC PANEL, US RIGHT UPPER QUADRANT 09/21/2024 Clinisync Result Encounter [facility] External Department Unsolicited Jignesh Saez MD 09/10/2024 11:45 AM EDT Office Visit [facility] [address] [place] [address] Jignesh Saez MD Lower extremity edema (Primary Dx); SOB (shortness of breath); Abdominal pain, generalized; Essential hypertension, benign ; Encounter for long-term (current) use of medications 09/10/2024 Bamboo flowsheet [facility] [address] [place] [phone] Jignesh Saez MD 09/08/2024 Telephone [facility] [address] [place] [address] Jignesh Saez MD 08/19/2024 Telephone [facility] [address] [place] [address] Jignesh Saez MD 08/08/2024 Refill [facility] [address] [place] [address] Jignesh Saez MD Vitamin D deficiency, unspecified; Vitamin D deficiency 07/28/2024 Results Follow-Up [facility] [address] [place] [address] Jignesh Saez MD ALL CBC WITH AUTO DIFF, HMHP LIVER PANEL, ALL BASIC METABOLIC PANEL, Additional followed-up results: 3 07/28/2024 Clinisync Result Encounter [facility] External Department Unsolicited Jignesh Saez MD from Last 3 Months Family History [...] Mass Index 30.51 10/13/2024 10:09 AM EDT Plan of Treatment Upcoming Encounters Date Type Department Care Team (Late st Contact Info) Description 01/12/2025 10:00 AM EST Office Visit [facility] [address] [place] [phone] Jignesh Saez MD [address] [place] [address] Health Maintenance Due Date Last Done Comments CT Colonography 1955 FIT-DNA 1955 FIT 1955 FOBT 1955 Sigmoidoscopy 1955 Pneumococcal Vaccine: 65+ Ye ars (1 of 2 - PCV) 1973 Mammogram 02/29/2024 02/28/2023, 02/28/2023 Influenza Vaccine (#1) 2024 Medicare Annual Wellness (AWV) 01/07/2025 01/08/2024 Colonoscopy 10/09/2028 10/09/2018, 10/09/2018 Colorectal Cancer Screening 10/09/2028 Procedures Procedure Name Priority Date/Time Associated Diagnosis Comments US RIGHT UPPER QUADRANT 09/21/2024 11:03 AM EDT ALL BASIC METABOLIC PANEL Routine 09/21/2024 10:51 AM EDT HMHP LIVER PANEL Routine 09/21/2024 10:5 1 AM EDT ALL CBC WITH AUTO DIFF Routine 10:51 AM EDT MLR HEMOGLOBIN A1C Routine 07/28/2024 8: 42 AM EDT ALL THYROID STIM HORMONE Routine 07/28/2024 8:42 AM EDT ALL LIPID PROFILE (FASTING) Routine 07/28/2024 8:42 AM EDT ALL BASIC METABOLIC PANEL Routine 07/28/2024 8:42 AM EDT HMHP LIVER PANEL Routine 07/28/2024 8:42 AM EDT ALL CBC WITH AUTO DIFF Routine 8:42 AM EDT MM TOMOSYNTHESIS SCREENING BI 02/28/2023 2:06 PM EST from Last 3 Months or Most Recently Relevant to Health Maintenance Results * US RIGHT UPPER QUADRANT (09/21/2024 11:03 AM EDT) Anatomical Region Laterality Modality Other 09/21/2024 11:0 3 AM EDT Narrative 09/21/2024 11:06 AM EDT [address] [address] Ultrasound Report Signed Patient: PEPPER LACY MR#: [id number] : 1955 Acct:[id number] Age/Sex: 69 / F ADM Date: 09/21/24 Loc: US Attending Dr: Jignesh Saez M.D. Ordering Physician: Jignesh Saez M.D. Date of Service: 09/21/24 Procedure(s): US right upper quadrant Accession Number(s): [id number] cc: Jignesh Saez M.D. [place] [id number] Patient Name: PEPPER LACY MRN: [id number] date: 1955 Sex: F Assigned Patient Location: US Current Patient Location: US Accession/Order Number: [id number] Exam Date: 09/21/2024 11:01 Report Date: 09/21/2024 11:03 At the request of: JIGNESH SAEZ MD Procedure: US right upper quadrant LIMITED ABDOMINAL ULTRASOUND: CLINICAL HISTORY: Abdominal Distention, Generalized Abdominal Pain COMPARISON: None TECHNIQUE: Grayscale and color Doppler images of the right upper quadrant organs were obtained. FINDINGS: Pancreas: Visualized portions appear unremarkable. Liver: Fatty infiltration. No focal mass or intrahepatic bile duct dilatation. Hepatopedal flow seen within the portal vein. Gallbladder: Cholelithiasis. No wall thickening. Negative Hooper sign. CBD: 9 mm RT KIDNEY: No Hydronephrosis US/US right upper quadrant IMPRESSION: FATTY INFILTRATION OF THE LIVER WITH CHOLELITHIASIS. MILD DILATATION OF THE CBD. IF CHOLEDOCHOLITHIASIS IS OF CLINICAL CONCERN, MRCP IS SUGGESTED.. Impression dictated by: Sandra Stokes Jr.ODora 09/21/2024 11:03 AM Dictation Location: [place] [address] Electronically authenticated by: [id number] Y Date: 09/21/2024 11:03 Dictated By: Quentin Foley M.D. Signed By: 09/21/24 1106 DD/ 1103 TD/TT: Manager Cancer: Procedure Note Radiology, Radiologist, MD - 09/21/2024 [place] [address] Ultrasound Report Signed Patient: PEPPER LACY DMR#: [id number] : 5Acct:[id number] Age/Sex: 69 / FADM Date: 09/21/24 Loc: US Attending Dr: Jignesh Saez M.D. Ordering Physician: Jignesh Saez M.D. Date of Service: 09/21/24 Procedure(s): US right upper quadrant Accession Number(s): [id number] cc: Jignesh Saez M.D. The [place] [address] Patient Name: PEPPER LACY MRN: [id number] date: 1955 Sex: F Assigned Patient Location: US Current Patient Location: US Accession/Order Number: [id number] Exam Date: 09/21/2024 11:01 Report Date: 09/21/2024 11:03 At the request of: JIGNESH SAEZ MD Procedure: US right upper quadrant LIMITED ABDOMINAL ULTRASOUND: CLINICAL HISTORY: Abdominal Distention, Generalized Abdominal Pain COMPARISON: None TECHNIQUE: Grayscale and color Doppler images of the right upper quadrant organs were obtained. FINDINGS: Pancreas: Visualized portions appear unremarkable. Liver: Fatty infiltration. No focal mass or intrahepatic bile duct dilatation. Hepatopedal flow seen within the portal vein. Gallbladder: Cholelithiasis. No wall thickening. Negative Hooper sign. CBD: 9 mm RT KIDNEY: No Hydronephrosis US/US right upper quadrant IMPRESSION: FATTY INFILTRATION OF THE LIVER WITH CHOLELITHIASIS. MILD DILATATION OF THE CBD. IF CHOLEDOCHOLITHIASIS IS OF CLINICALCONCERN, MRCP IS SUGGESTED.. Impression dictated by: Quentin Foley Jr., D.ODora 09/21/2024 11:03 AM Dictation Location: [place] [address] Electronically authenticated by: [id number] Y Date: 1:03 Dictated By: Quentin Foley M.D. Signed By:09/21/24 1106 DD/ 1103 TD/TT: Manager Cancer: Jignesh Saez MD [facility] Final Result * [facility] LIVER PANEL (09/21/2024 10:51 AM EDT) Only the most recent of2 resultswithin the time period is included. BILIRUBIN TOTAL 0.4 0.2 - 1.0 mg/dL TB BILIRUBIN DIRECT 0.1 0.0 - 0.2 mg/dL TBH ASPARTATE AMINO TRANSFERASE 28 15 - 37 U/L TBH ALANINE AMINOTRANSFERASE 48 14 - 59 U/L TBH ALKALINE PHOSPHATASE 77 46 - 116 U/L TB TOTAL PROTEIN 6.9 6.4 - 8.2 g/dL TBH ALBUMIN LEVEL 3.5 3.4 - 5.0 g/dL TBH GLOBULIN 3.4 g/dL TBH ALBUMIN GLOBULIN RATIO 1.0 TBH 09/21/2024 10:5 1 AM EDT 09/21/2024 10:52 AM EDT Narrative [facility] - 09/21/2024 11:50 AM EDT Jignesh Saez MD [facility] Final Result [facility] * (ABNORMAL) ALL CBC WITH AUTO DIFF (09/21/2024 10:51 AM EDT) Only the most recent of2 resultswithin the time period is included. TBH WBC 6.7 4.0 - 11.0 10 3/uL TBH TBH RBC 5.08 4.20 - 5.40 10 6/uL TBH TBH HGB 16.2(H) 12.0 - 16.0 g/dL TBH TBH HCT 47.4 36.0 - 48.0 % TBH TBH MCV 93.3 81.0 - 99.0 fL TBH TBH MCH 31.9 26.7 - 34.0 pg TBH TBH MCHC 34.2 29.9 - 35.2 g/dL TBH TBH RDW 12.5 11.0 - 15.0 % TBH TBH PLT 282 150 - 450 10 3/uL TBH TBH MPV 10.4 9.5 - 13.5 fL TBH NEUTROPHILS PERCENT AUTO 48.6 43.0 - 75.0 % TBH LYMPHOCYTES PERCENT AUTO 37.7 20.5 - 60.0 % TBH MONOCYTES PERCENT AUTO 8.7 1.7 - 12.0 % TBH TBH EO % 4.3 0.9 - 7.0 % TBH BASOPHILS PERCENT AUTO 0.6 0.2 - 2.0 % TBH IMMATURE GRANULOCYTES PCT AUTO 0.1 0.0 - 0.5 % TBH NEUTROPHILS ABSOLUTE AUTO 3.3 1.4 - 6.5 10 3/uL TBH LYMPHOCYTES ABSOLUTE AUTO 2.5 1.2 - 3.8 10 3/uL TBH MONOCYTES ABSOLUTE AUTO 0.6 0.3 - 0.8 10 3/uL TBH TBH EO # 0.3 0.0 - 0.7 10 3/uL TBH BASOPHILS ABSOLUTE AUTO 0.0 0.0 - 0.1 10 3/uL TBH IMMATURE GRANULOCYTES ABS AUTO 0.01 0.00 - 0.03 10 3/uL TBH 09/21/2024 10:5 1 AM EDT 09/21/2024 10:52 AM EDT Narrative [facility] - 09/21/2024 11:09 AM EDT us Jignesh Saez MD CL[facility] Final Result [facility] * (ABNORMAL) ALL BASIC METABOLIC PANEL (09/21/2024 10:51 AM EDT) Only the most recent of2 resultswithin the time period is included. SODIUM 146(H) 136 - 145 mmol/L TBH POTASSIUM 4.4 3.5 - 5.1 mmol/L TBH CHLORIDE 107 98 - 107 mmol/L TBH CARBON DIOXIDE 30.5 21.0 - 32.0 mmol/L TBH ANION GAP 12.9 TBH GLUCOSE 122(H) 74 - 106 mg/dL TBH BLOOD UREA NITROGEN 12.0 7.0 - 18.0 mg/dL TBH CREATININE 0.70 0.55 - 1.02 mg/dL TBH TBH EGFR-AF COMORAN >60 >=60 mL/min/1.7 3m 2 TBH TBH EGFR-NON AF COMORAN >60 >=60 mL/min/1.7 3m 2 TBH BUN CREATININE RATIO 17.1 TBH CALCIUM 8.8 8.5 - 10.1 mg/dL TBH 09/21/2024 10:5 1 AM EDT 09/21/2024 10:52 AM EDT Narrative [facility] - 09/21/2024 11:50 AM EDT us Jignesh GILLETTEISYZULEYKA Final Result [facility] MLR HEMOGLOBIN A1C (07/28/2024 8:42 AM EDT) GLYCOHEMOGLOBIN A1C 6.2 4.5 - 6.2 % [facility] Comment: ADA RECOMMENDED LIMIT 4.0 - 6.0 ADA THERAPEUTIC TARGET < 7.0 ACTION SUGGESTED > 7.0 ESTIMATED AVERAGE GLUCOSE 131 mg/dL TB 07/28/2024 8:42 AM EDT 07/28/2024 8:44 AM EDT Narrative [facility] - 07/28/2024 11:23 AM EDT Jignesh WINTERS Final Result Performing Organization Address City/[facility]/ZIP Co de Phone Number [facility] * ALL THYROID STIM HORMONE (07/28/2024 8:42 AM EDT) THYROID STIMULATING HORMONE 1.990 0.358 - 3.740 uIU/mL TB 07/28/2024 8:42 AM EDT 07/28/2024 8:44 AM EDT Narrative [facility]IN[facility] - 07/28/2024 9:19 AM EDT Jignesh WINTERS Final Result [facility] * (ABNORMAL) ALL LIPID PROFILE (FASTING) (07/28/2024 8:42 AM EDT) TRIGLYCERIDES 207(H) <=150 mg/dL TBH CHOLESTEROL 218(H) <=200 mg/dL TBH HDL CHOLESTEROL 67(H) 40 - 60 mg/dL TBH Comment: > or =60 mg/dl - LOW CARDIOVASCULAR RISK <40 mg/dl - HIGH CARDIOVASCULAR RISK LDL CHOLESTEROL CALCULATED 110.0 mg/dL TB Comment: <100 mg/dl OPTIMAL 100-129 mg/dl NEAR OR ABOVE OPTIMAL 130-159 mg/dl BORDERLINE HIGH 160-189 mg/dl HIGH >190 mg/dl VERY HIGH VLDL CHOLESTEROL 41.4 mg/dL TBH CHOL HDL RATIO 3.3 TB Comment: 3.3 - 4.4 LOW RISK 4.4 - 7.1 AVERAGE RISK 7.1 - 11.0 MODERATE RISK >11.0 HIGH RISK 07/28/2024 8:42 AM EDT 07/28/2024 8:44 AM EDT Narrative [facility]IN[facility]YNC - 07/28/2024 9:19 AM EDT Jignesh Saez MD [facility] Final Result [facility] * MM TOMOSYNTHESIS SCREENING BI (02/28/2023 2:06 PM EST) Anatomical Region Laterality Modality Other 02/28/2023 2:06 PM EST Narrative 02/28/2023 2:07 [place] [address] Mammography Report Signed Patient: PEPPER LACY MR#: [id number] : 1955 Acct:[id number] Age/Sex: 67 / F ADM Date: 02/28/23 Loc: MAMMO Attending Dr: Jignesh Saez M.D. Ordering Physician: Jignesh Saez M.D. Results: Date of Service: 02/28/23 Follow Up: Procedure(s): MM tomosynthesis screening BI Accession Number(s): [id number] cc: Jignesh Saez M.D. Patient Name: PEPPER LACY MR#: [id number] : 1955 Exam Date: 02/28/2023 Ordering Doctor: DR Jignesh Saez . RADIOLOGY REPORT PROCEDURE: MM TOMOSYNTHESIS SCREENING [...] prostate cancer at age 72. LOCATION: [facility] BREAST COMPOSITION: Scattered areas fibroglandular [...] Signed By: 02/28/23 1407 DD/ 1406 TD/TT: Manager Cancer: Procedure Note Radiology, Radiologist, MD - 02/28/2023 [place] [address] Mammography Report Signed Patient: PEPPER LACY DMR#: [id number] : 5Acct:[id number] Age/Sex: 67 / FADM Date: 02/28/23 Loc: MAMMO Attending Dr: Jignesh Saez M.D. Ordering Physician: Jignesh Saez M.D.Results: Date of Service: 02/28/23Follow Up: Procedure(s): MM tomosynthesis screening BI Accession Number(s): [id number] cc: Jignesh Saez M.D. Patient Name: PEPPER LACY MR#: [id number] : 1955 Exam Date: 02/28/2023 Ordering Doctor: DR Jignesh Saez . RADIOLOGY REPORT PROCEDURE: MM TOMOSYNTHESIS SCREENING [...] prostate cancer at age 72. LOCATION: [facility] BREAST COMPOSITION: Scattered areas fibroglandular [...] M.D. Signed By:02/28/23 1407 DD/ 1406 TD/TT: Manager Cancer: Jignesh Saez MD [facility] Final Result from Last 3 Months or Most Recently Relevant to Health Maintenance Insurance [employer] Care Teams Quality Assurance Nurse Relationship Specialty Start Date End Date Jignesh Saez MD [address] [place] [address] PCP - General Family Medicine 04/11/23
--- OUTSIDE RECORDS SUMMARY | 2024-10-22 07:50 | XMS_ITS | Encounter Summary ---
Author Organization [facility] Address [address] [place] [address] Care Team Providers Care Hand Method Lasting Machine Operator Name Role Phone Jignesh Serna MD Primary Care Provider [phone] Encounter Details Date Type Department Care Team [...] 01/12/2025 10:00 AM EST [facility] [address] [place] [address] Jignesh Serna MD [address] [place] [address] documented as of this encounter Procedures Procedure Name Priority Date/Time Associated Diagnosis Comments FLUOROSCOPY UP TO 1 HOUR 11/27/2023 10:12 AM EDT documented in this encounter Results * FLUOROSCOPY UP TO 1 HOUR (11/27/2023 10:12 AM EDT) Anatomical Region Laterality Modality Radiographic Jada ging 11/27/2023 10:1 2 AM EDT Narrative 11/27/2023 10:14 AM EDT [place] [id number] Fluoroscopy Report Signed Patient: PEPPER LACY MR#: [id number] : 1955 Acct:[id number] Age/Sex: 68 / F ADM Date: 11/25/23 Loc: SURGOUT Attending Dr: Anum Barrientos M.D. Ordering Physician: Anum Barrientos M.D. Date of Service: 11/25/23 Procedure(s): FL fluoroscopy <1hr NON-READ Accession Number(s): [id number] cc: Anum Barrientos M.D.; Jignesh Serna M.D. The [place] [id number] Patient Name: PEPPER LACY MRN: [id number] date: 1955 Sex: F Assigned Patient Location: [facility] Current Patient Location: Accession/Order Number: [id number] Exam Date: 11/25/2023 14:45 Report Date: 11/27/2023 10:12 At the request of: ANUM BARRINETOS Procedure: FL fluoroscopy <1hr NON-READ EXAM: FL fluoroscopy <1hr NON-READ HISTORY: TECHNIQUE: FINDINGS: Please see Operative Report. Electronically authenticated by: LOBO TRAVIS Date: 11/27/2023 10:12 Dictated By: Lobo Travis Signed By: 11/27/23 1014 DD/ 1012 TD/TT: Buckle And Button Maker: Procedure Note Radiology, Radiologist, MD - 11/27/2023 The [place] [id number] Fluoroscopy Report Signed Patient: PEPPER LACY DMR#: [id number] : 5Acct:[id number] Age/Sex: 68 / FADM Date: 11/25/23 Loc: SURGOUT Attending Dr: Anum Barrientos M.D. Ordering Physician: Anum Barrientos M.D. Date of Service: 11/25/23 Procedure(s): FL fluoroscopy <1hr NON-READ Accession Number(s): [id number] cc: Anum Barrientos M.D.; Jignesh Serna M.D. The [place] [id number] Patient Name: PEPPER LACY MRN: [id number] date: 1955 Sex: F Assigned Patient Location: SURGOUT Current Patient Location: Accession/Order Number: [id number] Exam Date: 11/25/2023 14:45 Report Date: 11/27/2023 10:12 At the request of: ANUM BARRIENTOS Procedure: FL fluoroscopy <1hr NON-READ EXAM: FL fluoroscopy <1hr NON-READ HISTORY: TECHNIQUE: FINDINGS: Please see Operative Report. Electronically authenticated by: LOBO TRAVIS Date: 11/27/2023 10:12 Dictated By: AngyRadiologist Signed By:11/27/23 1014 DD/ 1012 TD/TT: Buckle And Button Maker: Generic External Data Provider IMG XR PROCEDURES Final Result documented in this encounter Visit Diagnoses Not on filedocumented in this encounter Care Teams Hand Method Lasting Machine Operator Relationship Specialty Start Date End Date Jignesh Serna MD [address] [place] [address] PCP - General Family Medicine 04/11/23 documented as of this encounter
--- OUTSIDE RECORDS SUMMARY | 2024-10-22 07:50 | XMS_ITS | Encounter Summary ---
Author Organization [facility] Address [address] [place] [address] Care Team Providers Care Buyer Agent Name Role Phone Jignesh Serna MD Primary Care Provider [phone] Encounter Details Date Type Department Care Team [...] 01/12/2025 10:00 AM EST [facility] [address] [place] [address] Jignesh Serna MD [address] [place] [address] documented as of this encounter Procedures Procedure Name Priority Date/Time Associated Diagnosis Comments ECG 12-LEAD 11/20/2023 1:57 PM EDT documented in this encounter Results * ECG 12-LEAD (11/20/2023 1:57 PM EDT) Anatomical Region Laterality Modality Other 11/20/2023 1:57 PM EDT Narrative 11/20/2023 11:13 PM EDT The [address] [address] Electrocardiograph Report Signed Patient: PEPPER LACY MR#: [id number] : 1955 Acct:[id number] Age/Sex: 68 / F ADM Date: 11/20/23 Loc: PST Attending Dr: Javier Callaway M.D. Ordering Physician: Javier Callaway M.D. Date of Service: 11/20/23 Procedure(s): ECG 12 lead Accession Number(s): [id number] cc: [facility] Test Date: 2023-11-20 Pat Name: PEPPER LACY Department: Room: - Gender: Female Title I Teacher: : 1955 Requested By: Javier Callaway Order Number: [id number] Reading MD: CHARLES MCELROY Measurements Intervals Logan Rate: 57 P: 61 IN: 175 QRS: 20 QRSD: 94 T: 44 QT: 407 QTc: 398 Interpretive Statements SINUS BRADYCARDIA Compared to ECG 09/01/2020 13:10:26 Sinus rhythm no longer present Ventricular premature complex(es) no longer present Electronically Signed On 11-20-2023 23:12:41 EDT by CHARLES MCELROY Dictated By: Charles Mcelroy D.O. Signed By: 11/20/23 2313 DD/ 1357 TD/TT: Wrapper Hands Sprayer: Procedure Note Radiology, Radiologist, MD - 11/21/2023 The [place] [id number] Electrocardiograph Report Signed Patient: PEPPER LACY DMR#: [id number] : 5Acct:[id number] Age/Sex: 68 / FADM Date: 11/20/23 Loc: PST Attending Dr: Javier Callaway M.D. Ordering Physician: Javier Callaway M.D. Date of Service: 11/20/23 Procedure(s): ECG 12 lead Accession Number(s): [id number] cc: [facility] Test Date: 2023-11-20 Pat Name: PEPPER LACY Department: Room: - Gender: Female Title I Teacher: : 1955 Requested By: Javier Callaway Order Number: [id number] Reading MD: CHARLES MCELROY Measurements Intervals Logan Rate: 57 P: 61 IN: 175 QRS: 20 QRSD: 94 T: 44 QT: 407 QTc: 398 Interpretive Statements SINUS BRADYCARDIA Compared to ECG 09/01/2020 13:10:26 Sinus rhythm no longer present Ventricular premature complex(es) no longer present Electronically Signed On 11-20-2023 23:12:41 EDT by CHARLES MCELROY Dictated By: Charles McelroyODora Signed By:11/20/23 0815 DD/ 1357 TD/TT: Wrapper Hands Sprayer: Generic External Data Provider [facility] Final Result documented in this encounter Visit Diagnoses Not on filedocumented in this encounter Care Teams Buyer Agent Relationship Specialty Start Date End Date Jignesh Serna MD [address] [place] [address] PCP - General Family Medicine 04/11/23 documented as of this encounter
--- OUTSIDE RECORDS SUMMARY | 2024-10-22 07:50 | XMS_ITS | Encounter Summary ---
Author Organization [facility] Address [address] [place] [address] Care Team Providers Care Field Mechanical Meter Tester Name Role Phone Jignesh Serna MD Primary Care Provider [phone] Encounter Details Date Type Department Care Team [...] Office Visit [facility] [address] [place] [address] Jignesh Serna MD [address] [place] [address] documented as of this encounter Procedures Procedure Name Priority Date/Time Associated Diagnosis Comments XR WRIST LT MIN 3 V 01/07/2024 1 0:18 AM EST documented in this encounter Results * XR WRIST LT MIN 3 V (01/07/2024 10:18 AM EST) Anatomical Region Laterality Modality Radiographic Jada ging 01/07/2024 10:1 8 AM EST Narrative 01/07/2024 10:21 AM EST [address] [address] XRay Report Signed Patient: PEPPER LACY MR#: [id number] : 1955 Acct:[id number] Age/Sex: 68 / F ADM Date: 01/06/24 Loc: EC Attending Dr: Anum Barrientos M.D. Ordering Physician: Anum Barrientos M.D. Date of Service: 01/06/24 Procedure(s): XR wrist LT min 3V Accession Number(s): [id number] cc: Anum Barrientos M.D.; Jignesh Serna M.D. The [address] [address] Patient Name: PEPPER LACY MRN: [facility]:[id number] date: 1955 Sex: F Assigned Patient Location: Current Patient Location: Accession/Order Number: [id number] Exam Date: 01/06/2024 08:26 Report Date: 01/07/2024 [...] Signed By: 01/07/24 1021 DD/ 1018 TD/TT: Lift Manager: Procedure Note Radiology, Radiologist, MD - 01/07/2024 [place] [address] XRay Report Signed Patient: PEPPER LACY DMR#: [id number] : 5Acct:[id number] Age/Sex: 68 / FADM Date: 01/06/24 Loc: EC Attending Dr: Anum Barrientos M.D. Ordering Physician: Anum Barrientos M.D. Date of Service: 01/06/24 Procedure(s): XR wrist LT min 3V Accession Number(s): [id number] cc: Anum Barrientos M.D.; Jignesh Serna M.D. The [place] [address] Patient Name: PEPPER LACY MRN: [id number] date: 1955 Sex: F Assigned Patient Location: Current Patient Location: Accession/Order Number: [id number] Exam Date: 01/06/2024 08:26 Report Date: 01/07/2024 [...] M.D. Signed By:01/07/24 1021 DD/ 1018 TD/TT: Lift Manager: Generic External Data Provider IMG XR PROCEDURES Final Result documented in this encounter Visit Diagnoses Not on filedocumented in this encounter Care Teams Field Mechanical Meter Tester Relationship Specialty Start Date End Date Jignesh Senra MD [address] [place] [address] PCP - General Family Medicine 04/11/23 documented as of this encounter
--- OUTSIDE RECORDS SUMMARY | 2024-10-22 07:50 | XMS_ITS | Encounter Summary ---
Author Organization [facility] Address [address] [place] [address] Care Team Providers Care Insurance And Benefits Clerk Name Role Phone Jignesh Saez MD Primary Care Provider [phone] Encounter Details Date Type Department Care Team (Late st Contact Info) Description 01/07/2024 Clinisync Result Encounter [facility] External Department Unsolicited Jignesh Saez MD [address] [place] [address] Social History Tobacco Use Types Packs/Day Years [...] Office Visit [facility] [address] [place] [address] Jignesh Saez MD [address] [place] [address] documented as of this encounter Procedures Procedure Name Priority Date/Time Associated Diagnosis Comments XR DEXA AXIAL SKELETON 01/07/2024 11:11 AM EST documented in this encounter Results * XR DEXA AXIAL SKELETON (01/07/2024 11:11 AM EST) Anatomical Region Laterality Modality Other 01/07/2024 11:1 1 AM EST Narrative 01/07/2024 11:13 AM EST The [address] [address] XRay Report Signed Patient: PEPPER LACY MR#: [id number] : 1955 Acct:[id number] Age/Sex: 68 / F ADM Date: 01/06/24 Loc: DORI Attending Dr: Jignesh Saez M.D. Ordering Physician: Jignesh Saez M.D. Date of Service: 01/06/24 Procedure(s): XR DEXA axial skeleton Accession Number(s): [id number] cc: Jignesh Saez M.D. [place] [address] Patient Name: PEPPER LACY MRN: [id number] date: 1955 Sex: F Assigned Patient Location: [facility] Current Patient Location: Accession/Order Number: [id number] Exam Date: 01/06/2024 08:05 Report Date: 01/07/2024 [...] Mckenna SL, Jean Marie KL, Deshawn EM, Ailsa KG, AJ, Zoran ES. The clinician's guide to prevention and treatment of osteoporosis. Osteoporos Int. 2021;3310):9523-7035. doi: 10.1007/b80479-218-86993-e. Epub 2021Jun 29. Erratum in: Osteoporos Int. 2021Sep 28;: PMID: 28212687; PMCID: [id number]. Electronically authenticated by: AZAR STUART Date: 01/07/2024 11:11 Dictated By: Azar Stuart M.D. Signed By: 01/07/24 1113 DD/ 1111 TD/TT: Energy Infrastructure Engineer: Procedure Note Radiology, Radiologist, - 01/07/2024 [place] [address] XRay Report Signed Patient: PEPPER LACY [facility]#: [id number] : 5Acct:[id number] Age/Sex: 68 / FADM Date: 01/06/24 Loc: RAD Attending Dr: Jignesh Saez M.D. Ordering Physician: Jignesh Saez M.D. Date of Service: 01/06/24 Procedure(s): XR DEXA axial skeleton Accession Number(s): [id number] cc: Jignesh Saez M.D. The [address] [address] Patient Name: PEPPER LACY MRN: [facility]:[id number] date: 1955 Sex: F Assigned Patient Location: [facility] Current Patient Location: Accession/Order Number: [id number] Exam Date: 01/06/2024 08:05 Report Date: 01/07/2024 [...] 10-year hip fracture risk >= 3% or [id number] major osteoporosis-related fracture risk >= 20% (i.e., [...] to prevention and treatment of osteoporosis.Osteoporos Int. 2021;33(10):1261-8196. doi: 10.1007/e91748-628-30312-i. Epub . Erratum in: Osteoporos Int. 2021Sep 28;: PMID: 60563972; PMCID: [id number]. Electronically authenticated by: AZAR STUART Date: 01/07/2024 11:11 Dictated By: Azar Stuart M.D. Signed By:01/07/24 1113 DD/ 1111 TD/TT: Energy Infrastructure Engineer: Jignesh Saez MD [facility] Final Result documented in this encounter Visit Diagnoses Not on filedocumented in this encounter Care Teams Insurance And Benefits Clerk Relationship Specialty Start Date End Date Jignesh Saez MD [address] [place] [address] PCP - General Family Medicine 04/11/23 documented as of this encounter
--- OUTSIDE RECORDS SUMMARY | 2024-10-22 07:50 | XMS_ITS | Encounter Summary ---
Author Organization [employer] Address [id number] [address] [place] [address] Care Team Providers Care Doctor Of Naprapathic Medicine Name Role Phone Jignesh Serna MD Primary Care Provider [phone] Encounter Details Date Type Department Care Team (Late st Contact Info) Description 10/17/2018 Telephone [facility] [address] [place] [address] Anitra Tan CMA Social History Tobacco Use Types Packs/Day Years Used Date Smoking Tobacco: Former Cigarettes Q uit: 06/05/2017 Smokeless Tobacco: Never Alcohol Use Standard Drinks/Week Comments No 0 (1 standard drink = 0.6 oz pur e alcohol) Childcare Answer Date Recorded Childcare Unknown 08/13/2018 Employment Answer Date Recorded Employment Unknown 08/13/2018 Comments No Sex and Gender Information Value Date Recorded Sex Assigned at Not on file Legal Sex Female 11:50 AM EDT Gender Identity Not on file Sexual Orientation Not on file documented as of this encounter Plan of Treatment Not on file documented as of this encounter Visit Diagnoses Not on filedocumented in this encounter Care Teams Doctor Of Naprapathic Medicine Relationship Specialty Start Date End Date Jignesh Serna MD PCP - General Family Medicine 10/01/18 documented as of this encounter
--- OUTSIDE RECORDS SUMMARY | 2024-10-22 07:50 | XMS_ITS | Encounter Summary ---
Author Organization [facility] Address [address] [place] [address] Care Team Providers Care Manager Trainee Name Role Phone Jignesh Serna MD Primary Care Provider [phone] Encounter Details Date Type Department Care Team (Late Contact Info) Description 07/28/2024 Results Follow-Up [facility] [address] [place] [address] Jignesh Serna MD [address] [place] [address] ALL CBC WITH AUTO DIFF, HMHP LIVER PANEL, ALL BASIC METABOLIC PANEL, Additional followed-up results: 3 Social History Tobacco Use Types Packs/Day Years [...] 01/12/2025 10:00 AM EST [facility] [address] [place] [address] Jignesh Serna MD [address] [place] [address] documented as of this encounter Visit Diagnoses Not on filedocumented in this encounter Additional Health Concerns Assessment Noted Time PHQ-9 Depression Total Score: 0 01/08/20 24 11:00 AM EST documented as of this encounter Care Teams Manager Trainee Relationship Specialty Start Date End Date Jignesh Serna MD [address] [place] [address] PCP - General Family Medicine 04/11/23 documented as of this encounter
--- OUTSIDE RECORDS SUMMARY | 2024-10-22 07:50 | XMS_ITS | Encounter Summary ---
Author Organization [facility] Address [address] [place] [address] Care Team Providers Care Color Expert Name Role Phone Jignesh Serna MD Primary Care Provider [phone] Encounter Details Date Type Department Care Team ([facility] Contact Info) Description 01/09/2024 Orders Only [facility] [address] [place] [address] Jignesh Serna MD [address] [place] [address] Social History Tobacco Use Types Packs/Day Years [...] Office Visit [facility] [address] [place] [address] Jignesh Serna MD [address] [place] [address] documented as of this encounter Procedures Procedure [...] documented as of this encounter Care Teams Color Expert Relationship Specialty Start Date End Date Jignesh Serna MD [address] [place] [address] PCP - General Family Medicine 04/11/23 documented as of this encounter
--- OUTSIDE RECORDS SUMMARY | 2024-10-22 07:50 | XMS_ITS | Encounter Summary ---
Author Organization [facility] Address [address] [place] [address] Care Team Providers Care Data Collection Associate Name Role Phone Jignesh Serna MD Primary Care Provider [phone] Encounter Details Date Type Department Care Team (Late Contact Info) Description 10/13/2024 Bamboo flowsheet [facility] [address] [place] [address] Jignesh Serna MD [address] [place] [address] Social History Tobacco Use Types Packs/Day Years [...] Office Visit [facility] [address] [place] [address] Jignesh Serna MD [address] [place] [address] documented as of this encounter Visit Diagnoses Not on filedocumented in this encounter Additional Health Concerns Assessment Noted Time PHQ-9 Depression Total Score: 0 11/06/20 24 11:00 AM EST documented as of this encounter Care Teams Data Collection Associate Relationship Specialty Start Date End Date Jignesh Serna MD [address] [place] [address] PCP - General Family Medicine 04/11/23 documented as of this encounter
--- OUTSIDE RECORDS SUMMARY | 2024-10-22 07:50 | XMS_ITS | Encounter Summary ---
Author Organization [facility] Address [address] [facility] [place] [address] Care Team Providers Care Paraffin Plant Operator Name Role Phone Jignesh Serna MD Primary Care Provider [phone] Encounter Details Date Type Department Care Team ([facility] Contact Info) Description 02/04/2024 Orders Only [facility] [address] [place] [address] Javier Callaway MD [address] [place] [address] [place] [address] Social History Tobacco Use Types Packs/Day Years [...] Office Visit [facility] [address] [place] [address] Jignesh Serna MD [address] [place] [address] documented as of this encounter Procedures Procedure [...] documented as of this encounter Care Teams Paraffin Plant Operator Relationship Specialty Start Date End Date Jignesh Serna MD [address] [place] [address] PCP - General Family Medicine 04/11/23 documented as of this encounter
--- OUTSIDE RECORDS SUMMARY | 2024-10-22 07:50 | XMS_ITS | Encounter Summary ---
Author Organization [facility] Address [address] [place] [address] Care Team Providers Care Pinked Edge Sewing Machine Operator Name Role Phone Jignesh Serna MD Primary Care Provider [phone] Encounter Details Date Type Department Care Team [...] 01/12/2025 10:00 AM EST [facility] [address] [place] [address] Jignesh Serna MD [address] [place] [address] documented as of this encounter Procedures Procedure Name Priority Date/Time Associated Diagnosis Comments XR WRIST LT MIN 3 V 02/04/2024 6 :26 AM EST documented in this encounter Results * XR WRIST LT MIN 3 V (02/04/2024 6:26 AM EST) Anatomical Region Laterality Modality Radiographic Jada ging 02/04/2024 6:26 AM EST Narrative 02/04/2024 6:29 AM EST [place] [id number] XRay Report Signed Patient: PEPPER LACY MR#: [id number] : 1955 Acct:[id number] Age/Sex: 68 / F ADM Date: 02/03/24 Loc: EC Attending Dr: Anum Barrientos M.D. Ordering Physician: Anum Barrientos M.D. Date of Service: 02/03/24 Procedure(s): XR wrist LT min 3V Accession Number(s): [id number] cc: Anum Barrientos M.D.; Jignesh Serna M.D. [place] [id number] Patient Name: PEPPER LACY MRN: [id number] date: 1955 Sex: F Assigned Patient Location: Current Patient Location: Accession/Order Number: [id number] Exam Date: 02/03/2024 08:24 Report Date: 02/04/2024 [...] M.D. Signed By: 02/04/24628 DD/ 5 TD/TT: Frankfurter Inspector: Procedure Note Radiology, Radiologist, MD - 02/04/[address] [address] XRay Report Signed Patient: PEPPER LACY DMR#: [id number] : 1955ct:[id number] Age/Sex: 68 / FADM Date: 02/03/24 Loc: EC Attending Dr: Anum Barrientos M.D. Ordering Physician: Anum Barrientos M.D. Date of Service: 02/03/24 Procedure(s): XR wrist LT min 3V Accession Number(s): [id number] cc: Anum Barrientos M.D.; Jignesh Serna M.D. The [place] [address] Patient Name: PEPPER LACY MRN: [id number] date: 1955 Sex: F Assigned Patient Location: Current Patient Location: Accession/Order Number: [id number] Exam Date: 02/03/2024 08:24 Report Date: 02/04/2024 [...] Boyd M.D. Signed By:02/04/24628 DD/ 5 TD/TT: Frankfurter Inspector: us Generic External Data Provider IMG XR PROCEDURES Final Result documented in this encounter Visit Diagnoses Not on filedocumented in this encounter Additional Health Concerns Assessment Noted Time PHQ-9 Depression Total Score: 0 01/08/20 24 11:00 AM EST documented as of this encounter Care Teams Pinked Edge Sewing Machine Operator Relationship Specialty Start Date End Date Jignseh Serna MD [address] [place] [address] PCP - General Family Medicine 04/11/23 documented as of this encounter
--- OUTSIDE RECORDS SUMMARY | 2024-10-22 07:50 | XMS_ITS | Encounter Summary ---
Author Organization [facility] Address [address] [place] [address] Care Team Providers Care Dental Equipment Installer And Servicer Name Role Phone Jignesh Serna MD Primary Care Provider [phone] Encounter Details Date Type Department Care Team ([facility] Contact Info) Description 10/21/2024 Telephone [facility] [address] [place] [address] Jignesh Serna MD [address] [place] [address] Social History Tobacco Use Types Packs/Day Years [...] Upcoming Encounters Date Type Department Care Team ([facility] Contact Info) Description 01/12/2025 10:00 AM EST Office Visit [facility] [address] [place] [address] Jignesh Serna MD [address] [place] [address] documented as of this encounter Visit Diagnoses Diagnosis Chronic obstructive pulmonary disease with acute exacerbation (HCC) documented in this encounter Additional Health Concerns Assessment Noted Time PHQ-9 Depression Total Score: 0 01/08/20 11:00 AM EST documented as of this encounter Care Teams Dental Equipment Installer And Servicer Relationship Specialty Start Date End Date Jignesh Serna MD [address] [place] [address] PCP - General Family Medicine 04/11/23 documented as of this encounter
--- OUTSIDE RECORDS SUMMARY | 2024-10-22 07:50 | XMS_ITS | Encounter Summary ---
Author Organization [facility] Address [address] [place] [address] Care Team Providers Care Cyber Defense Forensics Analyst Name Role Phone Jignesh Serna MD Primary Care Provider [phone] Encounter Details Date Type Department Care Team (Late Contact Info) Description 10/21/2024 Telephone [facility] [address] [place] [address] Jignesh Serna MD [address] [place] [address] Social History Tobacco Use Types Packs/Day Years [...] * Telephone Encounter - [facility] - 10/21/2024 12:02 PM EDT Patient called is requesting an inhaler for COPD, states she is struggling to breath and her albuterol inhaler is not really helping. wilbur documented in this encounter Plan of Treatment Upcoming Encounters Date Type Department Care Team (Late Contact Info) Description 01/12/2025 10:00 AM EST Office Visit [facility] [address] [place] [address] Jignesh Serna MD [address] [place] [address] documented as of this encounter Visit Diagnoses Not on filedocumented in this encounter Additional Health Concerns Assessment Noted Time PHQ-9 Depression Total Score: 0 01/08/20 24 11:00 AM EST documented as of this encounter Care Teams Cyber Defense Forensics Analyst Relationship Specialty Start Date End Date Jignesh Serna MD [address] [place] [address] PCP - General Family Medicine 04/11/23 documented as of this encounter
--- OUTSIDE RECORDS SUMMARY | 2024-10-22 07:51 | XMS_ITS | Encounter Summary ---
Author Organization [employer] Address [id number] [address] [place] [address] Care Team Providers Care Dramatic Reader Name Role Phone Jignesh Serna MD Primary Care Provider [phone] Encounter Details Date Type Department Care Team (Latest Contact Info) Description 10/21/2024 Travel Social History Tobacco Use Types Packs/Day Years Used Date Smoking Tobacco: Former Cigarettes Q uit: 06/05/2017 Smokeless Tobacco: Never Alcohol Use Standard Drinks/Week Comments Yes 0 [...] on filedocumented in this encounter Care Teams Dramatic Reader Relationship Specialty Start Date End Date Jignesh Serna MD PCP - General Family Medicine 10/01/18 documented as of this encounter
--- OUTSIDE RECORDS SUMMARY | 2024-10-22 07:51 | XMS_ITS | Encounter Summary ---
Author Organization [facility] Address [address] [place] [address] Care Team Providers Care Maritime Pilot Name Role Phone Jignesh Serna MD Primary Care Provider [phone] Jignesh Serna MD Primary Care Provider [phone] Encounter Details Date Type Department Care Team (Late st Contact Info) Description 02/28/2023 Clinisync Result Encounter [facility] External Department Unsolicited Jignesh Serna MD [address] [place] [address] Social History Tobacco Use Types Packs/Day Years [...] 01/12/2025 10:00 AM EST [facility] [address] [place] [address] Jignesh Serna MD [address] [place] [address] documented as of this encounter Procedures Procedure Name Priority Date/Time Associated Diagnosis Comments MM TOMOSYNTHESIS SCREENING BI 02/28/2023 2:06 PM EST documented in this encounter Results * MM TOMOSYNTHESIS SCREENING BI (02/28/2023 2:06 PM EST) Anatomical Region Laterality Modality Other 02/28/2023 2:06 PM EST Narrative 02/28/2023 2:07 [place] [address] Mammography Report Signed Patient: PEPPER LACY MR#: [id number] : 1955 Acct:[id number] Age/Sex: 67 / F ADM Date: 02/28/23 Loc: MAMMO Attending Dr: Jignesh Serna M.D. Ordering Physician: Jignesh Serna M.D. Results: Date of Service: 02/28/23 Follow Up: Procedure(s): MM tomosynthesis screening BI Accession Number(s): [id number] cc: Jignesh Serna M.D. Patient Name: PEPPER LACY MR#: [id number] : 1955 Exam Date: 02/28/2023 Ordering Doctor: [...] prostate cancer at age 72. LOCATION: [facility] BREAST COMPOSITION: Scattered areas fibroglandular density. [...] Signed By: 02/28/23 1407 DD/ 140 TD/TT: Cessation Systems Outreach Specialist: Procedure Note Radiology, Radiologist, MD - 02/28/2023 [place] [address] Mammography Report Signed Patient: PEPPER LACY DMR#: [id number] : 5Acct:[id number] Age/Sex: 67 / FADM Date: 02/28/23 Loc: MAMMO Attending Dr: Jignesh Serna M.D. Ordering Physician: Jignesh Serna M.D.Results: Date of Service: 02/28/23Follow Up: Procedure(s): MM tomosynthesis screening BI Accession Number(s): [id number] cc: Jignesh Serna M.D. Patient Name: PEPPER LACY MR#: [id number] : 1955 Exam Date: 02/28/2023 Ordering Doctor: [...] prostate cancer at age 72. LOCATION: [facility] BREAST COMPOSITION: Scattered areas fibroglandular density. [...] M.D. Signed By:02/28/23 1407 DD/ 1406 TD/TT: Cessation Systems Outreach Specialist: Jignesh Serna MD [facility] Final Result documented in this encounter Visit Diagnoses Not on filedocumented in this encounter Care Teams Maritime Pilot Relationship Specialty Start Date End Date Jignehs Serna MD PCP - General Family Medicine 02/19/23 04/10/23 Jignesh Serna MD [address] [place] [address] PCP - General Family Medicine 04/11/23 documented as of this encounter
--- OUTSIDE RECORDS SUMMARY | 2024-10-22 07:51 | XMS_ITS | Encounter Summary ---
Author Organization [employer] Address [id number] [address] [place] [address] Care Team Providers Care Electrical Systems Drafter Name Role Phone Jignesh Serna MD Primary Care Provider [phone] Encounter Details Date Type Department Care Team (Late st Contact Info) Description 10/20/2024 Orders Only [facility] [address] [place] [address] Ref Prov, [place] [address] Social History Tobacco Use Types Packs/Day Years [...] on file documented as of this encounter Procedures Procedure Name Priority Date/Time Associated Diagnosis Comments MULTIPLE LABS Routine 09/21/2024 documented in this encounter Results * Multiple labs (09/21/2024) us Not In System Ref Prov MO IMAGING Edited Re sult - Final MANUALLY TRANSCRIBED RESULTS documented in this encounter Visit Diagnoses Not on filedocumented in this encounter Care Teams Electrical Systems Drafter Relationship Specialty Start Date End Date Jignesh Serna MD PCP - General Family Medicine 10/01/18 documented as of this encounter
--- OUTSIDE RECORDS SUMMARY | 2024-10-22 07:51 | XMS_ITS | Clinical Summary ---
Author Organization [facility] [employer] [facility] tem Address [id number] [address] [place] [address] Care Team Providers Care Nude Model Name Role Phone Jignesh Serna MD Primary Care Provider [phone] Allergies No known active allergies Medications amLODIPine (NORVASC) 5 mg tablet Take 1 tablet (5 mg total) by mouth in the morning. Active omeprazole (PriLOSEC) 40 mg capsule Take 1 capsule (40 mg total) by mouth in the morning. Active albuterol (PROVENTIL HFA;VENTOLIN HFA) 90 mcg/actuation inhaler Inhale 2 puffs every 6 (six) hours as needed for wheezing. Active cholecalcifero l, vitamin D3, 2,000 units capsule Take by mouth in the morning. 1 Active albuterol (PROVENTIL,LUDIVINA TOLIN) 2.5 mg /3 mL (0.083 %) nebulizer solution 1 Active spironolactone (ALDACTONE) 25 mg tablet Take 1 tablet (25 mg total) by mouth in the morning. Active BREO ELLIPTA 200-25 mcg/dose blister with device INHALE 1 PUFF BY MOUTH EVERY DAY 11 9 10/22/19 25 Discontinued cholecalcifero l, vitamin D3, 2,000 units tablet Take 1 tablet by mouth daily. 1 10/22/19 25 Discontinued Active Problems No known active problems Encounters Date Type Department Care Team Description 10/21/2024 10:00 AM EDT Office Visit [facility] [address] [place] [address] Jose Raul Beatty, Chest pain, unspecified type (Primary Dx); Bilateral upper abdominal pain; Left lower quadrant abdominal pain; Asymptomatic cholelithiasis 10/21/2024 Travel 10/20/2024 Orders Only [facility] [address] [place] [id number] Ref Prov, Not In System 09/21/2024 10:35 AM EDT Ancillary Procedure [facility] External [facility] Storage [facility] [place] [address] Pain from Last 3 Months Family History Medical History Relation Name Comments Cancer Father Relation Name Status Comments Brother Father Mother Alive Social History Tobacco Use Types Packs/Day Years [...] Pulse 70 10/21/2024 10:05 AM EDT Temperature 36.8 C (98.2 F) 09/16/2020 9:24 AM EDT Respiratory Rate 15 10/09/2018 8:32 AM EDT Oxygen Saturation 96% 10/09/2018 10:18 AM EDT Inhaled Oxygen Concentration - - Weight 85.1 kg (187 lb 9.6 oz) 10/21/2024 10:05 AM EDT Height 167.6 cm (5' 6 ) 10/21/2024 10:05 AM EDT Body Mass Index 30.28 10/21/2024 10:05 AM EDT Plan of Treatment Health Maintenance Due Date Last Done Comments Depression Screening 1966 Adult BMI Follow Up Plan 1972 DTaP,Tdap and Td Vaccines (1 - Tdap) 1973 Zoster (Shingles) Vaccine (1 of 2) 2004 Fall Risk Screening 05/05/2019 Colonoscopy 09/08/2023 09/07/2020, 08/0 10/2018, 10/09/2018, Additional history exists COVID-19 Vaccine (2023-2 5 season) 2023 03/20/2021, 07/07/2020 Influenza Vaccine 11/02/2024 Adult BMI Screening 10/21/2025 10/21/2024 Tobacco Screening 10/21/2025 10/21/2024 Medical Devices Not on file Procedures Procedure Name Priority Date/Time Associated Diagnosis Comments US ABDOMEN LMTD Routine 09/21/2024 10:35 AM EDT Pain MULTIPLE LABS Routine 09/21/2024 COLONOSCOPY Routine 09/07/2020 Tubular adenoma of colon from Last 3 Months or Most Recently Relevant to Health Maintenance Results * Ultrasound abdomen limited (09/21/2024 10:35 AM EDT) us Scanning Provider External IMG US ORDERABLES Fin al Result Performing Organization Address [facility] Co de Phone Number MANUALLY TRANSCRIBED RESULTS * Multiple labs (09/21/2024) us Not In System Ref Prov ID IMAGING Edited Re sult - Final Performing Organization Address [facility]/State/ZIP Co de Phone Number MANUALLY TRANSCRIBED RESULTS * Colonoscopy (09/07/2020) us Jose Raul Beatty DO GI PROCEDURE ORDERABLES Fin al Result Performing Organization Address [facility] Co de Phone Number MANUALLY TRANSCRIBED RESULTS from Last 3 Months or Most Recently Relevant to Health Maintenance Insurance [employer] Care Teams Nude Model Relationship Specialty Start Date End Date Jignesh Serna MD PCP - General Family Medicine 10/01/18
--- OUTSIDE RECORDS SUMMARY | 2024-10-22 07:51 | XMS_ITS | Encounter Summary ---
Author Organization [facility] Address [address] [place] [address] Care Team Providers Care Inspector Casing Name Role Phone Jignesh Serna MD Primary Care Provider [phone] Encounter Details Date Type Department Care Team [...] 01/12/2025 10:00 AM EST [facility] [address] [place] [address] Jignesh Serna MD [address] [place] [address] documented as of this encounter Procedures Procedure Name Priority Date/Time Associated Diagnosis Comments XR WRIST LT MIN 3 V 12/09/2023 2 :27 PM EDT documented in this encounter Results * XR WRIST LT MIN 3 V (12/09/2023 2:27 PM EDT) Anatomical Region Laterality Modality Radiographic Jada ging 12/09/2023 2:27 PM EDT Narrative 12/09/2023 2:30 PM EDT [facility] [place] [id number] XRay Report Signed Patient: PEPPER LACY MR#: [id number] : 1955 Acct:[id number] Age/Sex: 68 / F ADM Date: 12/09/23 Loc: EC Attending Dr: Anum Barrientos M.D. Ordering Physician: Anum Barrientos M.D. Date of Service: 12/09/23 Procedure(s): XR wrist LT min 3V Accession Number(s): [id number] cc: Anum Barrientos M.D.; Jignesh Serna M.D. [facility] [place] [id number] Patient Name: PEPPER LACY MRN: [id number] date: 1955 Sex: F Assigned Patient Location: Current Patient Location: OT Accession/Order Number: [id number] Exam Date: 12/09/2023 08:14 Report Date: 12/09/2023 [...] Signed By: 12/09/23 1430 DD/ 1427 TD/TT: Payment Rep: Procedure Note Radiology, Radiologist, MD - 12/09/2023 [facility] [place] [id number] XRay Report Signed Patient: PEPPER LACY DMR#: [id number] : 5Acct:[id number] Age/Sex: 68 / FADM Date: 12/09/23 Loc: EC Attending Dr: Anum Barrientos M.D. Ordering Physician: Anum Barrientos M.D. Date of Service: 12/09/23 Procedure(s): XR wrist LT min 3V Accession Number(s): [id number] cc: Anum Barrientos M.D.; Jignesh Serna M.D. [place] [id number] Patient Name: PEPPER LACY MRN: [id number] date: 1955 Sex: F Assigned Patient Location: EC Current Patient Location: OT Accession/Order Number: [id number] Exam Date: 12/09/2023 08:14 Report Date: 12/09/2023 [...] M.D. Signed By:12/09/23 1430 DD/ 1427 TD/TT: Payment Rep: us Generic External Data Provider IMG XR PROCEDURES Final Result documented in this encounter Visit Diagnoses Not on filedocumented in this encounter Care Teams Inspector Casing Relationship Specialty Start Date End Date Jignesh Serna MD [address] [place] [address] PCP - General Family Medicine 04/11/23 documented as of this encounter
--- OUTSIDE RECORDS SUMMARY | 2024-10-22 07:52 | XMS_ITS | CCD ---
Author Organization [facility] [employer]ini[employer] Care Team Providers Care Inspector Canvas Products Name Role Phone PHYSICIAN, DEFAULT Unavailable Unavailable PHYSICIAN, DEFAULT Unavailable Unavailable PROVIDER, UNKNOWN Attending Unavailable PROVIDER, UNKNOWN Admitting Unavailable Rivka Reyez Unavailable DR JIGNESH SAEZ Primary Care Unavailable SAMSA ., TYRON Admitting Unavailable SAMSA TYRON John Attending Unavailable NADJA, DR JIGNESH Zhou Consulting Unavailable NADJA, DR JIGNESH Zhou Attending Unavailable NADJA, DR JIGNESH Zhou Admitting Unavailable NADJA, DR JIGNESH Zhou Primary Care Unavailable Jignesh Saez MD Primary Care Provider Jignesh Seaz Primary Care Provider BRIEN WESTBROOK Referring Unavailab JIGNESH Schaffer Primary Care Unavailable GIDEON RUELAS Attending Unavailable Trevin Sepulveda MD Emergency Provider Jignesh Saez MD Primary Care Provider Genie Man MD Admit Provider Genie Man MD Attending Provider Francesca Barbosa DO Attending Provider Genie Man Admitting Unavailable Francesca Barbosa Attending Unavailable Jignesh Saez Primary Care Unavailable JIGNESH SAEZ Attending Unavailable JIGNESH SAEZ Attending Unavailable JIGNESH SAEZ Attending Unavailable JIGNESH SAEZ Attending Unavailable JIGNESH SAEZ Attending Unavailable JIGNESH SAEZ Attending Unavailable Jignesh Saez MD Primary Care Provider JIGNESH SAEZ Referring Unavailable JIGNESH SAEZ Primary Care Unavailable JIGNESH SAEZ Referring Unavailable JIGNESH SAEZ Primary Care Unavailable FRANCESCA MUNSON Attending Unavailable Medications Current Medications Medication Drug Class(es) Dates Sig (Normalized) Sig (Original) albuterol 0.83 mg/ml inhalation solution (20 sources) beta2-Adrenergic Agonist Start: 02-18-2023 take 2 puff(s) by inhalation every four hours as needed albuterol HFA 90 mcg/act inhaler Indications: Chronic obstructive pulmonary disease with (acute) exacerbation (HCC) , Obstructive chronic bronchitis with exacerbation (HCC) INHALE 2 PUFFS EVERY 4 HOURS NEEDED 18 g 2 02/18/2023 Active Start: 02-18-2023 take 2 puff(s) by in halation every four hours as needed albuterol HFA (PROVENTIL HFA, VENTOLIN HFA) 90 mcg/actuation inhaler Inhale 2 Puffs as instructed every 4 hours as needed. 0 02/18/2023 Active Start: 07-07-2020 take 2.5 mg by inhal ation every hour as needed Albuterol Sulfate 2.5 mg /3 mL (0.083 %) solution for nebulization Active 2.5 MG INHALATION Every hour as needed for shortness of breath July 05, 2024 12:00am Medication Name: Albuterol Sulfate (2.5 MG/ 3 ML); Note: Source Status: Taking; Provider: Dereje Tineo ( ) Start: 07-07-2020 End: 06-29-2024 albuterol (2.5 MG/3ML) 0.083 % nebulizer solution Indications: Chronic obstructive pulmonary disease with acute exacerbation (HCC) Take 3 mL (2.5 mg) by nebulization every 4 (four) hours if needed for wheezing or shortness of breath 150 mL 2 06/29/2024 Active take 2 puff(s) by in halation every six hours as needed for wheezing albuterol (PROVENTIL HFA;VENTOLIN HFA) 90 mcg/actuation inhaler Inhale 2 puffs every 6 (six) hours as needed for wheezing. Active Albuterol Sulfat e (2.5 MG/ 3 ML) Active alendronic acid 70 mg oral tablet (18 sources) Bisphosphonate Start: 01-07-2024 take 1 tablet by mouth in the morning alendronate (Fosamax) 70 MG tablet Indications: Age-related osteoporosis without current pathological fracture Take 1 tablet (70 mg) by mouth every 7 (seven) days Take in the morning with a full glass of water, on an empty stomach, and do not take anything else by mouth or lie down for the next 30 min. 12 tablet 3 01/07/2024 Active amLODIPine 10 mg oral tablet (20 sources) Dihydropyridine Calcium Channel Bree Start: 07-05-2024 End: 07-05-2024 take 1 tablet by mouth once daily Amlodipine 5 mg tablet Discontinued 5 MG PO Daily July 05, 2024 12:00am July 05, 2024 1:52pm Start: 10-07-2023 End: 10-13-2024 take 1 tablet by mouth once daily amLODIPine (Norvasc) 10 MG tablet Indications: Essential (primary) hypertension , Benign essential hypertension TAKE 1 TABLET BY MOUTH EVERY DAY 90 tablet 3 10/07/2023 10/13/2024 Discontinued amlodipine besyl ate (AMLODIPINE ORAL) Take by mouth. 0 Active take 1 tablet by angela th in the morning amLODIPine (Norvasc) 10 MG tablet Take 10 mg by mouth in the morning. 0 Active amLODIPine Besyl ate Active Arnuity Ellipta (1 source) Arnuity Ellipta Active azithromycin 500 mg oral tablet (4 sources) Macrolide Antimicrobial Start: 07-08-2024 Azithromycin 500 mg tablet Active 500 MG PO Daily 3 3 July 08, 2024 12:00am next dose due 07/09 Start: 03-09-2024 End: 06-29-2024 take 2 tablets by mouth once daily azithromycin (Zithromax) 250 MG tablet Indications: Upper respiratory tract infection, unspecified type 2 PO once a day on day #1, then 1 PO daily on days 2-5 6 tablet 03/09/2024 06/29/2024 Discontinued benzonatate 100 mg oral capsule (4 sources) Non-narcotic Antitussive Start: 07-08-2024 End: 07-15-2024 take 1 capsule by mouth three times daily as needed for cough benzonatate (Tessalon) 100 MG capsule Take 100 mg by mouth 3 (three) times a day as needed for cough 07/08/2024 07/15/2024 Active cholecalciferol 0.05 mg oral tablet (20 sources) Vitamin D Start: 07-05-2024 take 1 capsule by mouth once daily Cholecalciferol (Vitamin D3) (Vitamin D3) 50 mcg (2,000 unit) capsule Active 50 MCG PO Daily July 05, 2024 12:00am Start: 07-22-2020 End: 10-21-2024 take 1 tablet by mouth once daily cholecalciferol, vitamin D3, 2,000 units tablet Take 1 tablet by mouth daily. 07/22/2020 10/21/2024 Discontinued Start: 06-24-2020 cholecalcifero l, vitamin D3, 2,000 units capsule Take by mouth in the morning. 06/24/2020 Active Start: 06-24-2020 cholecalcifero l, vitamin D3, 2,000 units capsule Take by mouth daily. 06/24/2020 Active doxycycline monohydrate 100 mg oral capsule (1 source) Tetracycline-class Drug Start: 05-13-2022 take 1 capsule by mouth every twelve hours Doxycycline Monohydrate 100 MG 1 capsule Orally every 12 hrs for 7 days May, Active 60 actuat fluticasone propionate 0.25 mg/actuat / salmeterol 0.05 mg/actuat dry powder inhaler (12 sources) Corticosteroid, beta2-Adrenergic Agonist Start: 07-08-2024 Fluticasone-Salm eterol 250-50 MCG/ACT aerosol powder Inhale 1 Inhalation Daily 07/08/2024 Active Start: 07-08-2024 Fluticasone Pr opion-Salmeterol (Advair Diskus) 250-50 mcg/dose blister with device Active 1 INH INHALATION Twice daily 60 July 08, 2024 12:00am fluticasone/umeclidin/vilant er (TRELEGY ELLIPTA INHALATION) (1 source) fluticasone/umec lidin/vilanter (TRELEGY ELLIPTA INHALATION) Inhale as instructed. 0 Active furosemide 40 mg oral tablet (7 sources) Loop Diuretic S t a r t : 0 6 - 1 8 - 2 0 2 5 E n d : 0 8 - 1 2 - 2 0 2 5 take 1 tablet by mouth once daily as needed for edema furosemide (Lasix) 40 MG tablet Indications: Lower extremity edema Take 1 tablet (40 mg) by mouth Daily as needed (Edema) 30 tablet 2 08/19/2024 10/13/2024 Discontinued 12 hr guaiFENesin 600 mg extended release oral tablet (1 source) S t a r t : 0 5 - 0 7 - 2 0 2 5 take 1 tablet by mouth twice daily as needed for congestion Guaifenesin 600 mg Tablet Extended Release 12hr Active 1200 MG PO Twice daily as needed for congestion July 08, 2024 12:00am available over the counter ipratropium bromide 0.042 mg/actuat metered dose nasal spray (1 source) Anticholine rgic S t a r t : 0 5 - 0 7 - 2 0 2 5 Ipratropium Brea 42 mcg (0.06 %) [place],Non-Aerosol Active 2 SPRAY NASAL Three times daily July 08, 2024 12:00am for duration of nasal symptoms levoFLOXacin 750 mg oral tab let (2 sources) Quinolone Antimicrobi al S t a r t : 0 4 - 2 8 - 2 0 2 5 E n d : 0 5 - 0 5 - 2 0 2 5 take 1 tablet by mouth once daily levoFLOXacin (Levaquin) 750 MG tablet Indications: Chronic obstructive pulmonary disease with acute exacerbation (CMS/HCC) Take 1 tablet (750 mg) by mouth Daily for 7 days 7 tablet 06/29/2024 07/06/2024 Active mupirocin 0.02 mg/mg topical ointment (1 source) RNA Synthetase Inhibitor Antibacteri al S t a r t : 0 3 - 1 2 - 2 0 2 3 Mupirocin 2 % 1 application to affected area Externally 2 times a day for 7 days May, Active omeprazole 40 mg delayed release oral capsule (20 sources) Proton Pump Inhibitor S t a r t : 0 9 - 2 3 - 2 0 2 4 take 1 capsule by mouth once daily omeprazole (PriLOSEC) [address] capsule Indications: Gastro-esophageal reflux disease without esophagitis , Esophageal reflux TAKE 1 CAPSULE BY MOUTH EVERY DAY 90 capsule 3 11/25/2023 Active Omeprazole Activ e predniSONE 10 mg oral tablet (15 sources) Start: 07-08-2024 Prednisone 10 mg tablet Active 10 MG PO As Directed July 08, 2024 12:00am starting 5/8- 4tabs x3days, then 3tabs x3days, then 2tabs x3days, then 1tab x3days Start: 06-29-2024 End: 10-13-2024 take 6 tablets by mouth once daily, then take 4 tablets by mouth once daily, then take 2 tablets by mouth once daily, then take 1 tablet by mouth once daily predniSONE (Deltasone) 10 MG tablet Indications: Chronic obstructive pulmonary disease with acute exacerbation (HCC) 6 PO daily x 3 days, 4 PO daily x 3 days, 2 PO daily x 3 days, 1 PO daily x 3 days 39 tablet 06/29/2024 10/13/2024 Discontinued Start: 02-22-2017 take 1 tablet by angela th once daily, then take 1 tablet by mouth once daily at mealtime predniSONE 20 MG 60 mg daily for 3 days then 40mg daily for 3 days then 1 tablet daily for 3 days then 20mg daily fo Orally take with food for 9 days Feb, Not-Taking spironolactone 25 mg oral tablet (7 sources) Aldosterone Antagonist Start: 09-10-2024 take 1 tablet by mouth once daily spironolactone (Aldactone) 25 MG tablet Indications: Lower extremity edema Take 1 tablet (25 mg) by mouth Daily 30 tablet 5 09/10/2024 Active varenicline 1 mg oral tablet (17 [...] Start: 02-19-2023 End: 04-11-2023 Varenicline Tartrate, Alonzo r, (Chantix Starting Month ) 0.5 MG [...] 3 mL by inhalation every six hours Ipratropium-Albu terol 0.5-2.5 (3) MG/3ML 3 ml Inhalation every 6 hrs Mar, Not-Taking cefdinir 300 mg oral capsule (3 sources) Cephalosporin Antibacterial Start: 06-24-2024 End: 07-04-2024 take 1 capsule by mouth in the morning cefdinir (Omnicef) 300 MG capsule Indications: Upper respiratory tract infection, unspecified type Take 1 capsule (300 mg) by mouth in the morning and 1 capsule (300 mg) before bedtime. Do all this for 10 days. 20 capsule 06/24/2024 06/29/2024 Discontinued cefuroxime 500 mg oral tablet (1 source) [...] / neomycin 3.5 mg/ml / polymyxin b 49158 unt/ml ophthalmic suspension (1 source) Aminoglycoside Antibacterial, Polymyxin-class Antibacterial, Corticosteroid Start: 10-03-2016 take 2 drop(s) into the eye(s) three times daily Maxitrol 3.5-27920-0.1 2 drops into affected eye Ophthalmic Three times a day for 7 days Oct, Not-Taking 30 actuat fluticasone furoate 0.2 mg/actuat / vilanterol 0.025 mg/actuat dry powder inhaler (2 sources) Corticosteroid, beta2-Adrenergic Agonist Start: 07-18-2018 End: 10-21-2024 take 1 puff(s) by mouth once daily BREO ELLIPTA 200-25 mcg/dose blister with device INHALE 1 PUFF BY MOUTH EVERY DAY 07/18/2018 10/21/2024 Discontinued methylPREDNISolone (1 source) Corticosteroid Start: 03-31-2017 Depo-Medrol 80 mg Mar, 80 mg phentermine hydrochloride 37.5 mg oral tablet (5 sources) Sympathomimetic Amine Anorectic Start: 01-08-2024 End: 06-29-2024 take 1 tablet by mouth before mealtime phentermine (Adipex-P) 37.5 MG tablet Indications: Overweight (BMI 25.0-29.9) Take 1 tablet (37.5 mg) by mouth in the morning. Take before meals. 30 tablet 01/08/2024 06/29/2024 Discontinued Start: 04-11-2023 End: 05-11-2023 take 1 tablet by mouth before mealtime phentermine (Adipex-P) 37.5 MG tablet Indications: Obesity (BMI 30-39.9) Take 1 tablet (37.5 mg) by mouth in the morning. Take before meals. 30 tablet 0 04/11/2023 05/11/2023 Active ProAir HFA 108 (90 Base) MCG/ACT (1 source) Start: 02-22-2017 take 2 puff(s) by inhalation every four to six hours as needed ProAir HFA 108 (90 Base) MCG/ACT 2 puffs as needed Inhalation every 4-6 hrs Feb, Not-Taking Trelegy Ellipta 200-62.5-25 MCG/ACT aerosol powder (15 sources) Start: 02-19-2023 End: 06-29-2024 take 1 puff(s) by inhalation in the morning Trelegy Ellipta 200-62.5-25 MCG/ACT aerosol powder Inhale 1 puff in the morning. 02/19/2023 06/29/2024 Discontinued Start: 02-19-2023 take 1 puff(s) by in halation in the morning Trelegy Ellipta 200-62.5-25 MCG/ACT aerosol powder Inhale 1 puff in the morning. 02/19/2023 Active Start: 02-19-2023 take 1 puff(s) by in halation in the morning Edwardo Doan 200-62.5-25 MCG/ACT aerosol powder Inhale 1 puff in the morning. 0 02/19/2023 Active Problems Active Problems Problem Classification Problem Date Documented Date Episodic/Chronic Abdominal pain (19 sources) Generalized abdominal pain; Translations: [Generalized abdominal pain] Onset: 09-10-2024 09-10-2024 Episodic Biliary tract disease (9 sources) Cholelithiasis without obstruction; Translations: [Calculus of gallbladder without cholecystitis without obstruction] Onset: 10-13-2024 10-13-2024 Episodic Chronic obstructive pulmonary disease and bronchiectasis (20 sources) Acute exacerbation of chronic obstructive airways disease; Translations: [Chronic obstructive pulmonary disease with (acute) exacerbation] Onset: 02-19-2023 02-19-2023 Chronic Diseases of white blood cells (20 sources) 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; Translations: [Other eosinophilia] Onset: 02-19-2023 02-19-2023 Chronic Disorders of lipid metabolism (20 sources) Hyperlipidemia, unspecified; Translations: [Dyslipidemia] Onset: 04-27-2022 02-19-2023 Chronic E Codes: Natural/environment (1 source) Bitten or stung by nonvenomous insect and other nonvenomous arthropods, initial encounter Episodic Esophageal disorders (20 sources) Gastroesophageal reflux disease; Translations: [Gastro-esophageal reflux disease without esophagitis] Onset: 02-19-2023 02-19-2023 Chronic Essential hypertension (20 sources) Essential (primary) hypertension; Translations: [Benign essential hypertension] Onset: 04-27-2022 02-19-2023 Chronic Nonspecific chest pain (3 sources) Chest pain; Translations: [Chest pain, unspecified] Onset: 10-21-2024 10-21-2024 Episodic Nutritional deficiencies (20 sources) Vitamin D deficiency, unspecified; Translations: [Vitamin D deficiency] Onset: 04-24-2022 Chronic Osteoporosis (19 sources) Senile osteoporosis; Translations: [Age-related osteoporosis without current pathological fracture] Onset: 12-10-2023 01-07-2024 Chronic Other aftercare (1 source) Other custodial (current) drug therapy; Translations: [OTH SHELTER CURRENT DRUG THERAPY] Onset: 04-27-2022 Episodic Other eye disorders (1 source) Ptosis of eyelid; Translations: [Unspecified ptosis of bilateral eyelids] 10-09-2023 Episodic Other liver diseases (4 sources) Non-alcoholic fatty liver disease without non-alcoholic steatohepatitis; Translations: [Fatty (change of) liver, not elsewhere classified] Onset: 10-13-2024 10-13-2024 Chronic Other lower respiratory disease (10 sources) Dyspnea; Translations: [Shortness of breath] Onset: 09-10-2024 09-10-2024 Episodic Other nutritional; endocrine; and metabolic disorders [...] Onset: 04-11-2023 04-11-2023 Chronic Residual codes; unclassified (20 sources) Hypersomnia; Translations: [Hypersomnia, unspecified] Onset: 02-19-2023 02-19-2023 Chronic Residual codes; unclassified (20 sources) Edema of lower extremity; Translations: [Localized edema] Onset: 02-19-2023 02-19-2023 Episodic Residual codes; unclassified (4 sources) Postmenopausal state; Translations: [Asymptomatic menopausal state] Onset: 12-10-2023 12-10-2023 Episodic Residual codes; unclassified (1 source) Pain, unspecified; Translations: [Pain, unspecified] Onset: 10-20-2024 Episodic Respiratory failure; insufficiency; arrest (adult) (16 sources) Acute respiratory failure; Translations: [Acute respiratory failure with hypoxia] Onset: 07-15-2024 07-05-2024 Episodic Unclassified (1 source) A [facility] screening has identified you as FRAIL or AT RISK FOR FRAILTY. This puts you at a higher risk for infection, illness, falls, and other injuries. Here are four ways to help you reduce your risk of frailty: 1. IDENTIFY EARLY SIGNS OF FRAILTY Discuss contributing factors and concerns with your doctor 2. BE ACTIVE Walking and light strengthening exercises will help reduce weakness 3. EAT WELL Aim for three healthy meals a day that are high in protein 4. THINK POSITIVE Keep your mind active by being sociable and continuing to learn References: Stay Strong: Four Ways to Beat the Frailty Risk [email or web address].[email or web address]/health/community healthn tsy-ssm-xlrvlpvszv/sta f-sperhv-twwh-ways-to- nhgn-rou-zeq ilty-risk 07-08-2024 Unclassified (1 source) Cholelithiasis Onset: 10-21-2024 Past or Other Problems Problem Classification Problem Date Documented Da te Episodic/Chronic Diabetes mellitus without complication (20 sources) Prediabetes; Translations: [Prediabetes] Onset: 04-27-2022 02-19-2023 Episodic Fracture of upper limb (20 sources) Closed Colles' fracture; Translations: [Colles' fracture of left radius, subsequent encounter for closed fracture with routine healing] Onset: 12-10-2023 Resolved: 01-08-2024 12-10-2023 Episodic Mood disorders (16 sources) Mood disorders Onset: 01-08-2024 01-08-2024 Other aftercare (20 sources) Long-term current use of drug therapy; Translations: [Other custodial (current) drug therapy] Onset: 01-08-2024 01-08-2024 Episodic Other nutritional; endocrine; and metabolic disorders (20 sources) Body mass index 25-29 - overweight; Translations: [Overweight] Onset: 04-11-2023 07-11-2023 Episodic Residual codes; unclassified (20 sources) Tobacco user; Translations: [Tobacco use] Onset: 02-19-2023 02-19-2023 Episodic Results Test Name Value Interpretation Reference Range Facility Multiple labsOrdered By: Klarissa Whalen on 09-21-2024 [facility] [address] [address] Ultrasound Report Signed Patient: PEPPER ERNANDEZ MR#: [id number] : 1955 Acct:[id number] Age/Sex: 69 / F ADM Date: 09/21/24 Loc: US Attending Dr: Jignesh Saez M.D. Ordering Physician: Jignesh Saez M.D. Date of Service: 09/21/24 Procedure(s): US right upper quadrant Accession Number(s): [id number] cc: Jignesh Saez M.D. The [place] [address] Patient Name: PEPPER ERNANDEZ MRN: [facility]:[id number] date: 1955 Sex: F Assigned Patient Location: US Current Patient Location: US Accession/Order Number: [id number] Exam Date: 09/21/2024 11:01 Report Date: 09/21/2024 [...] Stokes Jr.ODora 09/21/2024 11:03 AM Dictation Location: [place] [address] Electronically authenticated by: [id number] Y Date: 09/21/2024 11:03 Dictated By: Quentin Foley M.D. Signed By: 09/21/24 1106 DD/ 1103 TD/TT: Necktie Centralizing Machine Operator: [facility] Radiology, Radiologist, MD - 09/21/[address] [address] Ultrasound Report Signed Patient: PEPPER ERNANDEZ MR#: [id number] : 1955 Acct:[id number] Age/Sex: 69 / F ADM Date: 09/21/24 Loc: US Attending Dr: Jignesh Saez M.D. Ordering Physician: Jignesh Saze M.D. Date of Service: 09/21/24 Procedure(s): US right upper quadrant Accession Number(s): [id number] cc: Jignesh Saez M.D. [place] [id number] Patient Name: PEPPER ERNANDEZ MRN: [id number] date: 1955 Sex: F Assigned Patient Location: US Current Patient Location: US Accession/Order Number: [id number] Exam Date: 09/21/2024 11:01 Report Date: 09/21/2024 [...] Stokes Jr.ODora 09/21/2024 11:03 AM Dictation Location: [place] [address] Electronically authenticated by: [id number] Y Date: 09/21/2024 11:03 Dictated By: Quentin Foley M.D. Signed By: 09/21/24 1106 DD/ 1103 TD/TT: Necktie Centralizing Machine Operator: [facility] Radiology Study observation (narrative) [facility] US RIGHT UPPER QUADRANTOrder ed By: Radiologist Radiology on 09-21-2024 [facility] Work Phone: ALL BASIC METABOLIC PANELon 07-28-2024 Anion gap [Moles/Vol] 12.5 mmol/L [facility] Calcium [Mass/Vol] 8.8 mg/dL 8.5 - 10. 1 mg/dL [facility] Chloride [Moles/Vol] 106 mmol/L 98 - 10 7 mmol/L [facility] CO2 [Moles/Vol] 31.9 mmol/L 21.0 - 32.0 mmol/L [facility] Creatinine [Mass/Vol] 0.68 mg/dL 0.55 - 1.02 mg/dL [facility] GFR/1.73 sq M.predicted CKD-EPI (S/P/Bld) [Vol rate/Area] >60 >=60 mL/min/1.73m 2 [facility] Glucose [Mass/Vol] 122 mg/dL High 74 - 106 mg/dL [facility] Potassium [Moles/Vol] 4.4 mmol/L 3.5 - 5.1 mmol/L [facility] Sodium [Moles/Vol] 146 mmol/L High 136 - 145 mmol/L [facility] EGFR-NON AF IRISH >60 >=60 mL/min/1.73m 2 [facility] Urea nitrogen [Mass/Vol] 11 mg/dL 7.0 - 18.0 mg/dL [facility] Urea nitrogen/Creatinine [Mass ratio] 16.2 mg/mg [facility] ALL CBC WITH AUTO DIFFon BASOPHILS ABSOLUTE AUTO 0 N [facility] Basophils/100 WBC (Bld) 0.3 % 0.2 - 2.0 % [facility] Eosinophils/100 WBC (Bld) 5.6 % 0.9 - 7.0 % [facility] Erythrocyte distribution width (RBC) [Ratio] 12 % 11.0 - 15.0 % [facility] Hematocrit (Bld) [Volume fraction] 45.2 % 36.0 - 48.0 % [facility] Hemoglobin (Bld) [Mass/Vol] 15.3 g/dL 12.0 - 16.0 g/dL [facility] IMMATURE GRANULOCYTES ABS AUTO 0.02 [facility] Immature granulocytes/100 WBC (Bld) 0.3 % 0.0 - 0.5 % [facility] Interpretation and review of laboratory results Abnormal [facility] LYMPHOCYTES ABSOLUTE AUTO 2.6 [facility] Lymphocytes/100 WBC (Bld) 42.9 % 20.5 - 60.0 % [facility] MCH (RBC) [Entitic mass] 32.4 pg 26.7 - 34.0 pg [facility] MCHC (RBC) [Mass/Vol] 33.8 g/dL 29.9 - 35.2 g/dL [facility] MCV (RBC) [Entitic vol] 95.8 fL 81.0 - 99.0 fL [facility] MONOCYTES ABSOLUTE AUTO 0.5 N [facility] Monocytes/100 WBC (Bld) 8.6 % 1.7 - 12.0 % [facility] NEUTROPHILS ABSOLUTE AUTO 2.5 [facility] Neutrophils/100 WBC (Bld) 42.3 % Low 43.0 - 75.0 % [facility] Platelet mean volume (Bld) [Entitic vol] 9.9 fL 9.5 - 13.5 fL [facility] EO # 0.3 [facility] PLT [address] [facility] RBC 4.72 [facility] TB WBC 5.9 [facility] CLINISYNC [facility] ALL LIPID PROFILE (FASTING)o n 07-28-2024 CHOL HDL RATIO 3.3 [facility] Comment on above: 3.3 - 4.4 LOW RISK 4.4 - 7.1 AVERAGE RISK 7.1 - 11.0 MODERATE RISK >11.0 HIGH RISK Cholesterol [Mass/Vol] 218 mg/dL High NINF - 200 mg/dL [facility] Cholesterol in HDL [Mass/Vol] 67 mg/dL High 40 - 60 mg/dL [facility] Comment on above: > or =60 mg/dl - LOW CARDIOVASCULAR RISK <40 mg/dl - HIGH CARDIOVASCULAR RISK Magnesium [Mass/Vol] 110 mg/dL [facility] Comment on above: <100 mg/dl OPTIMAL 100-129 mg/dl NEAR OR ABOVE OPTIMAL 130-159 mg/dl BORDERLINE HIGH 160-189 mg/dl HIGH >190 mg/dl VERY HIGH Magnesium [Mass/Vol] 41.4 mg/dL [facility] Triglyceride [Mass/Vol] 207 mg/dL High NINF - 150 mg/dL [facility] ALL THYROID STIM HORMONEon 0 07-28-2024 TSH Qn 1.99 m[IU]/L [facility] HMHP LIVER PANELon Albumin [Mass/Vol] 3.2 g/dL Low 3.4 - 5.0 g/dL [facility] ALBUMIN GLOBULIN RATIO 0.9 [facility] ALP [Catalytic activity/Vol] 62 U/L 46 - 116 U/L [facility] ALT [Catalytic activity/Vol] 37 U/L 14 - 59 U/L [facility] AST [Catalytic activity/Vol] 21 U/L 15 - 37 U/L [facility] Bilirubin [Mass/Vol] 0.5 mg/dL 0.2 - 1 .0 mg/dL [facility] Bilirubin.indirect [Mass/Vol] 0.1 mg/dL 0.0 - 0.2 mg/dL [facility] Globulin (S) [Mass/Vol] 3.4 g/dL N [facility] Protein [Mass/Vol] 6.6 g/dL 6.4 - 8.2 g/dL [facility] No Panel Informationon 07-28 Interpretation and review of laboratory results Abnormal [facility] Basic Metabolic Panelon Anion gap [Moles/Vol] 10.4 mmol/L Normal 6.0-15.[address] [facility] Comment on above: Performed By: #### B MP, CBC #### [address] Calcium [Mass/Vol] 8.3 mg/dL Low 8.6-10.[address] [facility] Comment on above: Performed By: #### B MP, CBC #### [address] Chloride [Moles/Vol] 104 mmol/L Normal 98-[address] [facility] Comment on above: Performed By: #### B MP, CBC #### [facility] [address] [place] [id number] [facility] CO2 [Moles/Vol] 29.9 mmol/L Normal 21.0-31.[address] [facility] Comment on above: Performed By: #### B MP, CBC #### [facility] [address] Creatinine [Mass/Vol] 0.59 mg/dL Low 0.60-1.[address] [facility] Comment on above: Performed By: #### B MP, CBC #### [facility] [address] [place] [address] [place] Creatinine Clr Calc Pharmacy 73.[address] [facility] Comment on above: Result Comment: PERF ORMED BY: [place] [address] PATHOLOGIST [employer] ENGINEER ELLA CLAY M.D. Performed By: #### B MP, CBC #### [place] [address] [place] GFR/1.73 sq M.predicted MDRD (S/P/Bld) [Vol rate/Area] mL/min/{1.73_m2} Normal [facility] Comment on above: Performed By: #### B MP, CBC #### [address] Glucose [Mass/Vol] 102 mg/dL High 70-[address] [facility] Comment on above: Result Comment: [facility] Glucose Reference Range is dependent on time and content of last meal. Glucose of more than 200 mg/dL in a nonstressed, ambulatory subject supports the diagnosis of Diabetes Mellitus. ADA recommended reference range Performed By: #### B MP, CBC #### [address] Potassium [Moles/Vol] 4.3 mmol/L Normal 3.5-5.[address] [facility] Comment on above: Result Comment: Hemo lysis is present at a level that could interfere with the result. Contact lab if redraw is required Performed By: #### B MP, CBC #### [place] [address] [place] Sodium [Moles/Vol] 140 mmol/L Normal 136-[address] [facility] Comment on above: Performed By: #### B MP, CBC #### [place] [address] [place] Urea nitrogen [Mass/Vol] 16 mg/dL Normal 7-[address] [facility] Comment on above: Performed By: #### B MP, CBC #### [place] [address] [place] Basophils Auto (Bld) [#/Vol] Ordered By: Linda Antonio on 07-08-2024 Basophils (Bld) [#/Vol] Automated basoph il count 0.0-0.2 [facility] Basophils/100 WBC Auto (Bld) Ordered By: Linda Antonio on 07-08-2024 Basophils/100 WBC (Bld) Automated basophil % . [facility] Calcium [Mass/volume] in Ser um or PlasmaOrdered By: Linda Antonio on 07-08-2024 Calcium [Mass/Vol] Calcium [Mass/volume ] in Serum or Plasma Low 8.6-10.3 [facility] Carbon dioxide, total [Moles /volume] in Serum or PlasmaOrdered By: Linda Antonio on 07-08-2024 CO2 [Moles/Vol] Carbon dioxide, tota l [Moles/volume] in Serum or Plasma 21.0-31.0 [facility] Chloride [Moles/volume] in S shana or PlasmaOrdered By: Linda Antonio on 07-08-2024 Chloride [Moles/Vol] Chloride [Moles/volume] in Serum or Plasma 98-107 [facility] Complete Blood Count Auto Di ffon 07-08-2024 Basophils (Bld) [#/Vol] 0.1 10*3/uL Normal 0.0-0.[address] [facility] Comment on above: Result Comment: PERF ORMED BY: [place] [address] PATHOLOGIST [employer] ENGINEER ELLA CLAY M.D. Performed By: #### B MP, CBC #### [facility] [address] [place] [address] Basophils/100 WBC (Bld) 0.7 % Normal . T [facility] Comment on above: Performed By: #### B MP, CBC #### [facility] [address] [place] [address] [place] Eosinophils (Bld) [#/Vol] 0.0 10*3/uL Normal 0.0-0.[address] [facility] Comment on above: Performed By: #### B MP, CBC #### [address] Eosinophils/100 WBC (Bld) 0.2 % Normal . [facility] Comment on above: Performed By: #### B MP, CBC #### [address] Erythrocyte distribution width (RBC) [Ratio] 13.0 % Normal 11.9-15.[address] [facility] Comment on above: Performed By: #### B MP, CBC #### [address] Hematocrit (Bld) [Volume fraction] 44.1 % Normal 34.0-46.[address] [facility] Comment on above: Performed By: #### B MP, CBC #### [address] Hemoglobin (Bld) [Mass/Vol] 14.6 g/dL Normal 11.8-15.[address] [facility] Comment on above: Performed By: #### B MP, CBC #### [address] Lymphocytes (Bld) [#/Vol] 3.9 10*3/uL Normal 1.00-4.[address] [facility] Comment on above: Performed By: #### B MP, CBC #### [address] Lymphocytes/100 WBC (Bld) 28.2 % Normal . [facility] Comment on above: Performed By: #### B MP, CBC #### [address] MCH (RBC) [Entitic mass] 31.9 pg Normal 24.7-34.[address] [facility] Comment on above: Performed By: #### B MP, CBC #### [address] MCV (RBC) [Entitic vol] 96.7 fL Normal 80-[address] [facility] Comment on above: Performed By: #### B MP, CBC #### [address] Mean Corpuscular HGB Conc 33.0 g/dL Normal 32.0-35.[address] [facility] Comment on above: Performed By: #### B MP, CBC #### [address] Monocytes (Bld) [#/Vol] 1.3 10*3/uL High 0.0-0.[address] [facility] Comment on above: Performed By: #### B MP, CBC #### [address] Monocytes/100 WBC (Bld) 9.6 % Normal . [facility] Comment on above: Performed By: #### B MP, CBC #### [address] Neutrophils (Bld) [#/Vol] 8.4 10*3/uL High 1.8-7.[address] [facility] Comment on above: Performed By: #### B MP, CBC #### [address] Neutrophils/100 WBC (Bld) 61.3 % Normal . [facility] Comment on above: Performed By: #### B MP, CBC #### [address] NRBC% 0.1 /100{WBC} Normal 0-0.[address] [facility] Comment on above: Performed By: #### B MP, CBC #### [address] Platelet mean volume (Bld) [Entitic vol] 8.6 fL Normal 6.3-10.[address] [facility] Comment on above: Performed By: #### B MP, CBC #### [address] Platelets (Bld) [#/Vol] 249 10*3/uL Normal 150-[address] [facility] Comment on above: Performed By: #### B MP, CBC #### [address] RBC (Bld) [#/Vol] 4.56 10*6/uL Normal 3.60-5.[address] [facility] Comment on above: Performed By: #### B MP, CBC #### [facility] [address] WBC (Bld) [#/Vol] 13.8 10*3/uL High 3.8-11.[address] [facility] Comment on above: Performed By: #### B MP, CBC #### [facility] [address] Creatinine [Mass/volume] in Serum or PlasmaOrdered By: Linda Antonio on 07-08-2024 Creatinine [Mass/Vol] Creatinine [Mass/volume] in Serum or Plasma Low 0.60-1.20 [facility] Eosinophils Auto (Bld) [#/Vo l]Ordered By: Linda Antonio on 07-08-2024 Eosinophils (Bld) [#/Vol] Automated eosinophil count 0.0-0.45 [facility] Eosinophils/100 WBC Auto (Bl d)Ordered By: Linda Antonio on 07-08-2024 Eosinophils/100 WBC (Bld) Automated eosinophil % . [facility] Erythrocyte distribution wid th Auto (RBC) [Ratio]Ordered By: Linda Bentley on 07-08-2024 Erythrocyte distribution width (RBC) [Ratio] Erythrocyte distribution width [Ratio] by Automated count 11.9-15.3 [facility] Glucose [Mass/volume] in Ser um or PlasmaOrdered By: Linda Antonio on 07-08-2024 Glucose [Mass/Vol] Glucose [Mass/volume ] in Serum or Plasma High 70-100 [facility] Comment on above: ADA recommended refe rence rangeRandom Glucose Reference Range is dependent on time and content of last meal. Glucose of more than 200 mg/dL in a nonstressed, ambulatory subject supports the diagnosis of Diabetes Mellitus. Hematocrit Auto (Bld) [Volum e fraction]Ordered By: Linda Antonio on 07-08-2024 Hematocrit (Bld) [Volume fraction] Hematocrit [Volume Fraction] of Blood by Automated count 34.0-46.4 [facility] Hemoglobin [Mass/volume] in BloodOrdered By: Linda Antonio on 07-08-2024 Hemoglobin (Bld) [Mass/Vol] Hemoglobin [Mass/volume] in Blood 11.8-15.4 [facility] Leukocytes [#/volume] correc bozena for nucleated erythrocytes in Blood by Automated counOrdered By: Linda Antonio on 07-08-2024 WBC corrected for nucl RBC Auto (Bld) [#/Vol] Leukocytes [#/volume] corrected for nucleated erythrocytes in Blood by Automated coun High 3.8-11.6 [facility] Lymphocytes Auto (Bld) [#/Vo l]Ordered By: Linda Antonio on 07-08-2024 Lymphocytes (Bld) [#/Vol] Lymphocytes [#/volume] in Blood by Automated count 1.00-4.8 [facility] Lymphocytes/100 WBC Auto (Bl d)Ordered By: Linda Antonio on 07-08-2024 Lymphocytes/100 WBC (Bld) Lymphocytes/100 leukocytes in Blood by Automated count . [facility] MCH Auto (RBC) [Entitic mass ]Ordered By: Linad Antonio on 07-08-2024 MCH (RBC) [Entitic mass] MCH [Entitic mass] by Automated count 24.7-34.3 [facility] MCHC Auto (RBC) [Mass/Vol]Or dered By: Linda Antonio on 07-08-2024 MCHC (RBC) [Mass/Vol] MCHC [Mass/volume] by Automated count 32.0-35.0 [facility] MCV Auto (RBC) [Entitic vol] Ordered By: Linda Antonio on 07-08-2024 MCV (RBC) [Entitic vol] MCV [Entitic vol ume] by Automated count 80-100 [facility] Monocytes Auto (Bld) [#/Vol] Ordered By: Linda Antonio on 07-08-2024 Monocytes (Bld) [#/Vol] Automated blood monocyte count High 0.0-0.8 [facility] Monocytes/100 WBC Auto (Bld) Ordered By: Linda Antonio on 07-08-2024 Monocytes/100 WBC (Bld) Automated monocyte % . [facility] Neutrophils Auto (Bld) [#/Vo l]Ordered By: Linda Antonio on 07-08-2024 Neutrophils (Bld) [#/Vol] Neutrophils [#/volume] in Blood by Automated count High 1.8-7.7 [facility] Neutrophils/100 WBC Auto (Bl d)Ordered By: Linda Antonio on 07-08-2024 Neutrophils/100 WBC (Bld) Automated neutrophil % . [facility] No Panel InformationOrdered By: Linda Antonio on 07-08-2024 Estimated GFR (CKD-EPI) > 60.0 mL/Min [facility] Creatinine Clearance (Chem 73.90 [facility] Nucleated erythrocytes [Pres ence] in Blood by Automated countOrdered By: Linda Antonio on 07-08-2024 Nucleated RBC Auto Ql (Bld) Nucleated erythrocytes [Presence] in Blood by Automated count 0-0.5 [facility] Platelet mean volume Auto (B ld) [Entitic vol]Ordered By: Linda Antonio on 07-08-2024 Platelet mean volume (Bld) [Entitic vol] Platelet mean volume [Entitic volume] in Blood by Automated count 6.3-10.7 [facility] Platelets Auto (Bld) [#/Vol] Ordered By: Linda Antonio on 07-08-2024 Platelets (Bld) [#/Vol] Platelets [#/vol ume] in Blood by Automated count 150-450 [facility] Potassium [Moles/volume] in Serum or PlasmaOrdered By: Linda Antonio on 07-08-2024 Potassium [Moles/Vol] Potassium [Moles/volume] in Serum or Plasma 3.5-5.1 [facility] Comment on above: Hemolysis is present at a level that could interfere with the result.Contact lab if redraw is required RBC Auto (Bld) [#/Vol]Ordere d By: Linda Antonio on 07-08-2024 RBC (Bld) [#/Vol] Erythrocytes [#/volume] in Blood by Automated count 3.60-5.00 [facility] Serum or plasma anion gap de terminationOrdered By: Linda Antonio on 07-08-2024 Anion gap [Moles/Vol] Serum or plasma an ion gap determination 6.0-15.0 [facility] Sodium [Moles/volume] in Ser um or PlasmaOrdered By: Linda Antonio on 07-08-2024 Sodium [Moles/Vol] Sodium [Moles/volume ] in Serum or Plasma 136-145 [facility] Urea nitrogen [Mass/volume] in Serum or PlasmaOrdered By: Linda Antonio on 07-08-2024 Urea nitrogen [Mass/Vol] Urea nitrogen [Mass/volume] in Serum or Plasma 7-25 [facility] WBC Auto (Bld) [#/Vol]Ordere d By: Linda Antonio on 07-08-2024 WBC (Bld) [#/Vol] Leukocytes [#/volume ] in Blood by Automated count High 3.8-11.6 [facility] BioFire Not Detectedon 07-07 BioFire Not Detected Not detected Normal Not Detecte T he [facility] Comment on above: Result Comment: This is a duplicate RP2.1 COVID (PCR) result to be used for statistical tracking purpose only. PERFORMED BY: [facility] [address] [place] [address] PATHOLOGIST [employer] ENGINEER ELLA CLAY M.D. Performed By: #### B IOFIRECOVNOTDE, RESP PANEL UPP. ####[facility] COVID-19 Detected/Not Detect edOrdered By: Linda Antonio on 07-07-2024 SARS-CoV-2 (COVID-19) RNA CHRISTY+non-probe Ql (Nph) Not detected Not Detecte [facility] Comment on above: This is a duplicate RP2.1 COVID (PCR) result to be used for statistical tracking purpose only. Respiratory (Upper) Panel, P CRon 07-07-2024 Respiratory (Upper) Panel, PCR Adenovirus Not detected Bordetella parapertussis Not detected [...] Influenza A H3 Blank Space PERFORMED BY: [place] [address] PATHOLOGIST [employer] ENGINEER ELLA CLAY M.D. Normal [facility] Comment on above: Performed By: #### C EPHEID NEG, COVID19 FLU RSV #### [address] Respiratory pathogens DNA an d RNA panel - Nasopharynx by CHRISTY with non-probe detectionOrdered By: Linda Antonio on 07-07-2024 Respiratory pathogens DNA and RNA panel CHRISTY+non-probe (Nph) Respiratory pathogens DNA and RNA panel - Nasopharynx by CHRISTY with non-probe detection [facility] Basic Metabolic Panelon Anion gap [Moles/Vol] 11.3 mmol/L Normal 6.0-15.[address] [facility] Comment on above: Performed By: #### C BC, BMP #### [address] Calcium [Mass/Vol] 8.7 mg/dL Normal 8.6-10.[address] [facility] Comment on above: Performed By: #### C BC, BMP #### [address] Chloride [Moles/Vol] 105 mmol/L Normal 98-[address] [facility] Comment on above: Performed By: #### C BC, BMP #### [address] CO2 [Moles/Vol] 28.0 mmol/L Normal 21.0-31.[address] [facility] Comment on above: Performed By: #### C BC, BMP #### [address] Creatinine [Mass/Vol] 0.62 mg/dL Normal 0.60-1.[address] [facility] Comment on above: Performed By: #### C BC, BMP #### [place] [address] [place] Creatinine Clr Calc Pharmacy 72.[address] [facility] Comment on above: Result Comment: PERF ORMED BY: [place] [address] PATHOLOGIST [employer] ENGINEER ELLA CLAY M.D. Performed By: #### C BC, BMP #### [address] GFR/1.73 sq M.predicted MDRD (S/P/Bld) [Vol rate/Area] mL/min/{1.73_m2} Normal [facility] Comment on above: Performed By: #### C BC, BMP #### [address] Glucose [Mass/Vol] 155 mg/dL High 70-[address] [facility] Comment on above: Result Comment: [place] om Glucose Reference Range is dependent on time and content of last meal. Glucose of more than 200 mg/dL in a nonstressed, ambulatory subject supports the diagnosis of Diabetes Mellitus. ADA recommended reference range Performed By: #### C BC, BMP #### [address] Potassium [Moles/Vol] 4.3 mmol/L Normal 3.5-5.[address] [facility] Comment on above: Performed By: #### C BC, BMP #### [address] Sodium [Moles/Vol] 140 mmol/L Normal 136-[address] [facility] Comment on above: Performed By: #### C BC, BMP #### [address] Urea nitrogen [Mass/Vol] 13 mg/dL Normal 7-[address] [facility] Comment on above: Performed By: #### C BC, BMP #### [address] Complete Blood Count Auto Di ffon 07-06-2024 Basophils (Bld) [#/Vol] 0.1 10*3/uL Normal 0.0-0.[address] [facility] Comment on above: Result Comment: PERF ORMED BY: [place] [address] PATHOLOGIST [employer] ENGINEER ELLA CLAY M.D. Performed By: #### C BC, BMP #### [address] Basophils/100 WBC (Bld) 0.5 % Normal . T himanshu [facility] Comment on above: Performed By: #### C BC, BMP #### [address] Eosinophils (Bld) [#/Vol] 0.0 10*3/uL Normal 0.0-0.[address] [facility] Comment on above: Performed By: #### C BC, BMP #### [address] Eosinophils/100 WBC (Bld) 0.0 % Normal . [facility] Comment on above: Performed By: #### C BC, BMP #### [address] Erythrocyte distribution width (RBC) [Ratio] 13.0 % Normal 11.9-15.[address] [facility] Comment on above: Performed By: #### C BC, BMP #### [address] Hematocrit (Bld) [Volume fraction] 46.9 % High 34.0-46.[address] [facility] Comment on above: Performed By: #### C BC, BMP #### [address] Hemoglobin (Bld) [Mass/Vol] 15.6 g/dL High 11.8-15.[address] [facility] Comment on above: Performed By: #### C BC, BMP #### [address] Lymphocytes (Bld) [#/Vol] 1.7 10*3/uL Normal 1.00-4.[address] [facility] Comment on above: Performed By: #### C BC, BMP #### [address] Lymphocytes/100 WBC (Bld) 12.1 % Normal . [facility] Comment on above: Performed By: #### C BC, BMP #### [address] MCH (RBC) [Entitic mass] 31.8 pg Normal 24.7-34.[address] [facility] Comment on above: Performed By: #### C BC, BMP #### [address] MCV (RBC) [Entitic vol] 95.9 fL Normal 80-[address] [facility] Comment on above: Performed By: #### C BC, BMP #### [address] Mean Corpuscular HGB Conc 33.2 g/dL Normal 32.0-35.[address] [facility] Comment on above: Performed By: #### C BC, BMP #### [address] [address] [place] Monocytes (Bld) [#/Vol] 0.5 10*3/uL Normal 0.0-0.[address] [facility] Comment on above: Performed By: #### C BC, BMP #### [address] Monocytes/100 WBC (Bld) 4.0 % Normal . [facility] Comment on above: Performed By: #### C BC, BMP #### [address] Neutrophils (Bld) [#/Vol] 11.5 10*3/uL High 1.8-7.[address] [facility] Comment on above: Performed By: #### C BC, BMP #### [address] Neutrophils/100 WBC (Bld) 83.4 % Normal . [facility] Comment on above: Performed By: #### C BC, BMP #### [address] NRBC% 0.0 /100{WBC} Normal 0-0.[address] [facility] Comment on above: Performed By: #### C BC, BMP #### [address] Platelet mean volume (Bld) [Entitic vol] 8.8 fL Normal 6.3-10.[address] [facility] Comment on above: Performed By: #### C BC, BMP #### [address] Platelets (Bld) [#/Vol] 270 10*3/uL Normal 150-[address] [facility] Comment on above: Performed By: #### C BC, BMP #### [address] RBC (Bld) [#/Vol] 4.90 10*6/uL Normal 3.60-5.[address] [facility] Comment on above: Performed By: #### C BC, BMP #### [address] WBC (Bld) [#/Vol] 13.8 10*3/uL High 3.8-11.[address] [facility] Comment on above: Performed By: #### C BC, BMP #### [facility] [address] [place] [address] Aerobic Cultureon 07-05-2024 Aerobic Culture Result Tab Codes Moderate Normal Respiratory Lilia 2 Days Gram Stain Result 4+ Gram Positive Cocci 3+ Gram Positive Bacilli 2+ White Blood Cells 2+ Epithelial Cells PERFORMED BY: [place] [address] PATHOLOGIST [employer] ENGINEER ELLA CLAY M.D. Normal [facility] Comment on above: Performed By: #### C EPHEID NEG, COVID19 FLU RSV #### [address] Aerobic cultureOrdered By: Jazz Man on 07-05-2024 Bacteria identified Aer cx Nom (Unsp spec) Aerobic culture [facility] Alanine aminotransferase [En zymatic activity/volume] in Serum or PlasmaOrdered By: Genie Man on 07-05-2024 ALT [Catalytic activity/Vol] Alanine aminotransferase [Enzymatic activity/volume] in Serum or Plasma [facility] Alanine aminotransferase [En zymatic activity/volume] in Serum or PlasmaOrdered By: Trevin Sepulveda on 07-05-2024 ALT [Catalytic activity/Vol] Alanine aminotransferase [Enzymatic activity/volume] in Serum or Plasma [facility] Albumin [Mass/volume] in Ser um or Plasma by Bromocresol green (BCG) dye binding methoOrdered By: Genie Man on 07-05-2024 Albumin BCG dye [Mass/Vol] Albumin [Mass/volume] in Serum or Plasma by Bromocresol green (BCG) dye binding metho 3.5-5.7 [facility] Albumin [Mass/volume] in Ser um or Plasma by Bromocresol green (BCG) dye binding methoOrdered By: Trevin Sepulveda on 07-05-2024 Albumin BCG dye [Mass/Vol] Albumin [Mass/volume] in Serum or Plasma by Bromocresol green (BCG) dye binding metho 3.5-5.7 [facility] Alkaline phosphatase [Enzyma tic activity/volume] in Serum or PlasmaOrdered By: Genie Man on 07-05-2024 ALP [Catalytic activity/Vol] Alkaline phosphatase [Enzymatic activity/volume] in Serum or Plasma 34-104 [facility] Alkaline phosphatase [Enzyma tic activity/volume] in Serum or PlasmaOrdered By: Trevin Sepulveda on 07-05-2024 ALP [Catalytic activity/Vol] Alkaline phosphatase [Enzymatic activity/volume] in Serum or Plasma 34-104 [facility] Aspartate aminotransferase [ Enzymatic activity/volume] in Serum or PlasmaOrdered By: Genie Man on 07-05-2024 AST [Catalytic activity/Vol] Aspartate aminotransferase [Enzymatic activity/volume] in Serum or Plasma 13-39 [facility] Aspartate aminotransferase [ Enzymatic activity/volume] in Serum or PlasmaOrdered By: Trevin Sepulveda on 07-05-2024 AST [Catalytic activity/Vol] Aspartate aminotransferase [Enzymatic activity/volume] in Serum or Plasma High 13-39 [facility] B-Type Natriuretic Peptideon 07-05-2024 Natriuretic peptide B (Bld) [Mass/Vol] 42.0 pg/mL Normal 5-[address] [facility] Comment on above: Result Comment: PERF ORMED BY: [place] [address] PATHOLOGIST [employer] ENGINEER ELLA CLAY M.D. Performed By: #### C EPHEID NEG, COVID19 FLU RSV #### [facility] [address] Basophils Auto (Bld) [#/Vol] Ordered By: Trevin Sepulveda on 07-05-2024 Basophils (Bld) [#/Vol] Automated basoph il count 0.0-0.2 [facility] Basophils/100 WBC Auto (Bld) Ordered By: Trevin Sepulveda on 07-05-2024 Basophils/100 WBC (Bld) Automated basophil % . [facility] Bilirubin.total [Mass/volume ] in Serum or PlasmaOrdered By: Genie Man on 07-05-2024 Bilirubin [Mass/Vol] Bilirubin.total [Mass/volume] in Serum or Plasma 0.3-1.0 [facility] Bilirubin.total [Mass/volume ] in Serum or PlasmaOrdered By: Trevin Sepulveda on 07-05-2024 Bilirubin [Mass/Vol] Bilirubin.total [Mass/volume] in Serum or Plasma Low 0.3-1.0 [facility] CT chest w conon 07-05-2024 CT chest w con [place] [address] CT Scan Report Signed Patient: Pepper Ernandez MR#: [id number] 0 : 1955 Acct:[id number] Age/Sex: 69 / F ADM Date: 07/05/24 Loc: Room: [address] [place] [address] Type: ADM IN Attending Dr: Eliu Schmitz [...] [place] M.D. 07/05/2024 9:18 AM Dictation Location: [place] [address] Transcribed By: JUNIOR 07/05/24917 Dictated By: Phillip West MD 07/05/24913 Signed By: 07/05/[address] [facility] Calcium [Mass/volume] in Ser um or PlasmaOrdered By: Trevin Sepulveda on 07-05-2024 Calcium [Mass/Vol] Calcium [Mass/volume ] in Serum or Plasma 8.6-10.3 [facility] Carbon dioxide, total [Moles /volume] in Serum or PlasmaOrdered By: Trevin Sepulveda on 07-05-2024 CO2 [Moles/Vol] Carbon dioxide, tota l [Moles/volume] in Serum or Plasma 21.0-31.0 [facility] Chloride [Moles/volume] in S shana or PlasmaOrdered By: Trevin Sepulveda on 07-05-2024 Chloride [Moles/Vol] Chloride [Moles/volume] in Serum or Plasma 98-107 [facility] Complete Blood Count Auto Di ffon 07-05-2024 Basophils (Bld) [#/Vol] 0.0 10*3/uL Normal 0.0-0.[address] [facility] Comment on above: Result Comment: PERF ORMED BY: [place] [address] PATHOLOGIST ASPHALT ENGINEER ELLA CLAY M.D. Performed By: #### C EPHEID NEG, COVID19 FLU RSV #### [place] [address] [place] Basophils/100 WBC (Bld) 0.5 % Normal . T [facility] Comment on above: Performed By: #### C EPHEID NEG, COVID19 FLU RSV #### [facility] [address] [place] [address] [place] Eosinophils (Bld) [#/Vol] 0.0 10*3/uL Normal 0.0-0.[address] [facility] Comment on above: Performed By: #### C EPHEID NEG, COVID19 FLU RSV #### [facility] [address] [place] [address] [place] Eosinophils/100 WBC (Bld) 0.1 % Normal . [facility] Comment on above: Performed By: #### C EPHEID NEG, COVID19 FLU RSV #### [address] Erythrocyte distribution width (RBC) [Ratio] 13.1 % Normal 11.9-15.[address] [facility] Comment on above: Performed By: #### C EPHEID NEG, COVID19 FLU RSV #### [address] Hematocrit (Bld) [Volume fraction] 46.6 % High 34.0-46.[address] [facility] Comment on above: Performed By: #### C EPHEID NEG, COVID19 FLU RSV #### [address] Hemoglobin (Bld) [Mass/Vol] 15.8 g/dL High 11.8-15.[address] [facility] Comment on above: Performed By: #### C EPHEID NEG, COVID19 FLU RSV #### [address] Lymphocytes (Bld) [#/Vol] 1.4 10*3/uL Normal 1.00-4.[address] [facility] Comment on above: Performed By: #### C EPHEID NEG, COVID19 FLU RSV #### [address] Lymphocytes/100 WBC (Bld) 15.4 % Normal . [facility] Comment on above: Performed By: #### C EPHEID NEG, COVID19 FLU RSV #### [address] MCH (RBC) [Entitic mass] 32.1 pg Normal 24.7-34.[address] [facility] Comment on above: Performed By: #### C EPHEID NEG, COVID19 FLU RSV #### [address] MCV (RBC) [Entitic vol] 94.3 fL Normal 80-[address] [facility] Comment on above: Performed By: #### C EPHEID NEG, COVID19 FLU RSV #### [address] Mean Corpuscular HGB Conc 34.0 g/dL Normal 32.0-35.[address] [facility] Comment on above: Performed By: #### C EPHEID NEG, COVID19 FLU RSV #### [place] [address] [place] Monocytes (Bld) [#/Vol] 0.1 10*3/uL Normal 0.0-0.[address] [facility] Comment on above: Performed By: #### C EPHEID NEG, COVID19 FLU RSV #### [place] [address] [place] Monocytes/100 WBC (Bld) 19.66 % Normal 0.00-20.00 [facility] Comment on above: Performed By: #### C EPHEID NEG, COVID19 FLU RSV #### [address] Monocytes/100 WBC (Bld) 1.4 % Normal . [facility] Comment on above: Performed By: #### C EPHEID NEG, COVID19 FLU RSV #### [place] [address] [place] Neutrophils (Bld) [#/Vol] 7.6 10*3/uL Normal 1.8-7.[address] [facility] Comment on above: Performed By: #### C EPHEID NEG, COVID19 FLU RSV #### [place] [address] [place] Neutrophils/100 WBC (Bld) 82.6 % Normal . [facility] Comment on above: Performed By: #### C EPHEID NEG, COVID19 FLU RSV #### [address] NRBC% 0.0 /100{WBC} Normal 0-0.[address] [facility] Comment on above: Performed By: #### C EPHEID NEG, COVID19 FLU RSV #### [address] Platelet mean volume (Bld) [Entitic vol] 8.4 fL Normal 6.3-10.[address] [facility] Comment on above: Performed By: #### C EPHEID NEG, COVID19 FLU RSV #### [address] Platelets (Bld) [#/Vol] 268 10*3/uL Normal 150-[address] [facility] Comment on above: Performed By: #### C EPHEID NEG, COVID19 FLU RSV #### [place] [address] [place] RBC (Bld) [#/Vol] 4.94 10*6/uL Normal 3.60-5.[address] [facility] Comment on above: Performed By: #### C EPHEID NEG, COVID19 FLU RSV #### [address] WBC (Bld) [#/Vol] 9.2 10*3/uL Normal 3.8-11.[address] [facility] Comment on above: Performed By: #### C EPHEID NEG, COVID19 FLU RSV #### [place] [address] [place] Basophils (Bld) [#/Vol] 0.1 10*3/uL Normal 0.0-0.[address] [facility] Comment on above: Result Comment: PERF ORMED BY: [place] [address] PATHOLOGIST ASPHALT ENGINEER ELLA CLAY M.D. Performed By: #### B SOIL BIOLOGY TEACHER, HS TROP, CBC, CK, CMP #### [address] Basophils/100 WBC (Bld) 0.7 % Normal . [facility] Comment on above: Performed By: #### B SOIL BIOLOGY TEACHER, HS TROP, CBC, CK, CMP #### [place] [address] [place] Eosinophils (Bld) [#/Vol] 0.2 10*3/uL Normal 0.0-0.[address] [facility] Comment on above: Performed By: #### B SOIL BIOLOGY TEACHER, HS TROP, CBC, CK, CMP #### [address] Eosinophils/100 WBC (Bld) 1.5 % Normal . [facility] Comment on above: Performed By: #### B SOIL BIOLOGY TEACHER, HS TROP, CBC, CK, CMP #### [address] Erythrocyte distribution width (RBC) [Ratio] 12.9 % Normal 11.9-15.[address] [facility] Comment on above: Performed By: #### B SOIL BIOLOGY TEACHER, HS TROP, CBC, CK, CMP #### [address] Hematocrit (Bld) [Volume fraction] 48.6 % High 34.0-46.[address] [facility] Comment on above: Performed By: #### B SOIL BIOLOGY TEACHER, HS TROP, CBC, CK, CMP #### [address] Hemoglobin (Bld) [Mass/Vol] 16.3 g/dL High 11.8-15.[address] [facility] Comment on above: Performed By: #### B SOIL BIOLOGY TEACHER, HS TROP, CBC, CK, CMP #### [address] Lymphocytes (Bld) [#/Vol] 3.4 10*3/uL Normal 1.00-4.[address] [facility] Comment on above: Performed By: #### B SOIL BIOLOGY TEACHER, HS TROP, CBC, CK, CMP #### [address] Lymphocytes/100 WBC (Bld) 29.7 % Normal . [facility] Comment on above: Performed By: #### B SOIL BIOLOGY TEACHER, HS TROP, CBC, CK, CMP #### [address] MCH (RBC) [Entitic mass] 31.8 pg Normal 24.7-34.[address] [facility] Comment on above: Performed By: #### B SOIL BIOLOGY TEACHER, HS TROP, CBC, CK, CMP #### [address] MCV (RBC) [Entitic vol] 94.6 fL Normal 80-100 [facility] Comment on above: Performed By: #### B SOIL BIOLOGY TEACHER, HS TROP, CBC, CK, CMP #### [address] Mean Corpuscular HGB Conc 33.7 g/dL Normal 32.0-35.[address] [facility] Comment on above: Performed By: #### B SOIL BIOLOGY TEACHER, HS TROP, CBC, CK, CMP #### [address] Monocytes (Bld) [#/Vol] 1.0 10*3/uL High 0.0-0.[address] [facility] Comment on above: Performed By: #### B SOIL BIOLOGY TEACHER, HS TROP, CBC, CK, CMP #### [address] Monocytes/100 WBC (Bld) 18.77 % Normal 0.00-20.00 [facility] Comment on above: Performed By: #### B SOIL BIOLOGY TEACHER, HS TROP, CBC, CK, CMP #### [address] Monocytes/100 WBC (Bld) 9.0 % Normal . [facility] Comment on above: Performed By: #### B SOIL BIOLOGY TEACHER, HS TROP, CBC, CK, CMP #### [address] Neutrophils (Bld) [#/Vol] 6.7 10*3/uL Normal 1.8-7.[address] [facility] Comment on above: Performed By: #### B SOIL BIOLOGY TEACHER, HS TROP, CBC, CK, CMP #### [address] Neutrophils/100 WBC (Bld) 59.1 % Normal . [facility] Comment on above: Performed By: #### B SOIL BIOLOGY TEACHER, HS TROP, CBC, CK, CMP #### [address] NRBC% 0.1 /100{WBC} Normal 0-0.[address] [facility] Comment on above: Performed By: #### B SOIL BIOLOGY TEACHER, HS TROP, CBC, CK, CMP #### [address] Platelet mean volume (Bld) [Entitic vol] 8.5 fL Normal 6.3-10.[address] [facility] Comment on above: Performed By: #### B SOIL BIOLOGY TEACHER, HS TROP, CBC, CK, CMP #### [address] Platelets (Bld) [#/Vol] 281 10*3/uL Normal 150-[address] [facility] Comment on above: Performed By: #### B SOIL BIOLOGY TEACHER, HS TROP, CBC, CK, CMP #### [address] RBC (Bld) [#/Vol] 5.13 10*6/uL High 3.60-5.[address] [facility] Comment on above: Performed By: #### B SOIL BIOLOGY TEACHER, HS TROP, CBC, CK, CMP #### [address] WBC (Bld) [#/Vol] 11.4 10*3/uL Normal 3.8-11.[address] [facility] Comment on above: Performed By: #### B SOIL BIOLOGY TEACHER, HS TROP, CBC, CK, CMP #### [address] Comprehensive Metabolic Pane reinaldo 07-05-2024 Albumin [Mass/Vol] 3.8 g/dL Normal 3.5-5.[address] [facility] Comment on above: Performed By: #### C EPHEID NEG, COVID19 FLU RSV #### [address] Albumin/Globulin [Mass ratio] 1.5 {ratio} Normal [facility] Comment on above: Performed By: #### C EPHEID NEG, COVID19 FLU RSV #### [address] ALP [Catalytic activity/Vol] 61 U/L Normal 34-[address] [facility] Comment on above: Performed By: #### C EPHEID NEG, COVID19 FLU RSV #### [address] ALT [Catalytic activity/Vol] 40 U/L Normal 7-[address] [facility] Comment on above: Performed By: #### C EPHEID NEG, COVID19 FLU RSV #### [address] Anion gap [Moles/Vol] 11.5 mmol/L Normal 6.0-15.[address] [facility] Comment on above: Performed By: #### C EPHEID NEG, COVID19 FLU RSV #### [address] AST [Catalytic activity/Vol] 27 U/L Normal 13-[address] [facility] Comment on above: Performed By: #### C EPHEID NEG, COVID19 FLU RSV #### [address] Bilirubin [Mass/Vol] 0.3 mg/dL Normal 0.3-1.[address] [facility] Comment on above: Performed By: #### C EPHEID NEG, COVID19 FLU RSV #### [place] [address] [place] Calcium [Mass/Vol] 8.7 mg/dL Normal 8.6-10.[address] [facility] Comment on above: Performed By: #### C EPHEID NEG, COVID19 FLU RSV #### [place] [address] [place] Chloride [Moles/Vol] 105 mmol/L Normal 98-[address] [facility] Comment on above: Performed By: #### C EPHEID NEG, COVID19 FLU RSV #### [address] CO2 [Moles/Vol] 26.1 mmol/L Normal 21.0-31.[address] [facility] Comment on above: Performed By: #### C EPHEID NEG, COVID19 FLU RSV #### [address] Creatinine [Mass/Vol] 0.66 mg/dL Normal 0.60-1.[address] [facility] Comment on above: Performed By: #### C EPHEID NEG, COVID19 FLU RSV #### [address] Creatinine Clr Calc Pharmacy 72.[address] [facility] Comment on above: Result Comment: PERF ORMED BY: [place] [address] PATHOLOGIST ASPHALT ENGINEER ELLA CLAY M.D. Performed By: #### C EPHEID NEG, COVID19 FLU RSV #### [address] GFR/1.73 sq M.predicted MDRD (S/P/Bld) [Vol rate/Area] mL/min/{1.73_m2} Normal [facility] Comment on above: Performed By: #### C EPHEID NEG, COVID19 FLU RSV #### [address] Globulin (S) [Mass/Vol] 2.5 g/dL Normal T [facility] Comment on above: Performed By: #### C EPHEID NEG, COVID19 FLU RSV #### [address] Glucose [Mass/Vol] 171 mg/dL High 70-[address] [facility] Comment on above: Result Comment: [place] om Glucose Reference Range is dependent on time and content of last meal. Glucose of more than 200 mg/dL in a nonstressed, ambulatory subject supports the diagnosis of Diabetes Mellitus. ADA recommended reference range Performed By: #### C EPHEID NEG, COVID19 FLU RSV #### [address] Potassium [Moles/Vol] 4.6 mmol/L Normal 3.5-5.[address] [facility] Comment on above: Performed By: #### C EPHEID NEG, COVID19 FLU RSV #### [address] Protein [Mass/Vol] 6.3 g/dL Low 6.4-8.[address] [facility] Comment on above: Performed By: #### C EPHEID NEG, COVID19 FLU RSV #### [address] Sodium [Moles/Vol] 138 mmol/L Normal 136-[address] [facility] Comment on above: Performed By: #### C EPHEID NEG, COVID19 FLU RSV #### [address] Urea nitrogen [Mass/Vol] 13 mg/dL Normal 7-[address] [facility] Comment on above: Performed By: #### C EPHEID NEG, COVID19 FLU RSV #### [address] Albumin [Mass/Vol] 4.1 g/dL Normal 3.5-5.[address] [facility] Comment on above: Performed By: #### C EPHEID NEG, COVID19 FLU RSV #### [address] Albumin/Globulin [Mass ratio] 1.5 {ratio} Normal [facility] Comment on above: Performed By: #### C EPHEID NEG, COVID19 FLU RSV #### [place] [address] [place] ALP [Catalytic activity/Vol] 70 U/L Normal 34-[address] [facility] Comment on above: Performed By: #### C EPHEID NEG, COVID19 FLU RSV #### [place] [address] [place] ALT [Catalytic activity/Vol] 50 U/L Normal 7-[address] [facility] Comment on above: Performed By: #### C EPHEID NEG, COVID19 FLU RSV #### [address] Anion gap [Moles/Vol] 11.9 mmol/L Normal 6.0-15.[address] [facility] Comment on above: Performed By: #### C EPHEID NEG, COVID19 FLU RSV #### [address] AST [Catalytic activity/Vol] 57 U/L High 13-[address] [facility] Comment on above: Performed By: #### C EPHEID NEG, COVID19 FLU RSV #### [address] Bilirubin [Mass/Vol] 0.2 mg/dL Low 0.3-1.[address] [facility] Comment on above: Performed By: #### C EPHEID NEG, COVID19 FLU RSV #### [address] Calcium [Mass/Vol] 9.2 mg/dL Normal 8.6-10.[address] [facility] Comment on above: Performed By: #### C EPHEID NEG, COVID19 FLU RSV #### [address] Chloride [Moles/Vol] 103 mmol/L Normal 98-[address] [facility] Comment on above: Performed By: #### C EPHEID NEG, COVID19 FLU RSV #### [address] CO2 [Moles/Vol] 28.2 mmol/L Normal 21.0-31.[address] [facility] Comment on above: Performed By: #### C EPHEID NEG, COVID19 FLU RSV #### [address] Creatinine [Mass/Vol] 0.87 mg/dL Normal 0.60-1.[address] [facility] Comment on above: Performed By: #### C EPHEID NEG, COVID19 FLU RSV #### [address] Creatinine Clr Calc Pharmacy 65.[address] [facility] Comment on above: Result Comment: PERF ORMED BY: [place] [address] PATHOLOGIST ASPHALT ENGINEER ELLA CLAY M.D. Performed By: #### C EPHEID NEG, COVID19 FLU RSV #### [place] [address] [place] GFR/1.73 sq M.predicted MDRD (S/P/Bld) [Vol rate/Area] mL/min/{1.73_m2} Normal [facility] Comment on above: Performed By: #### C EPHEID NEG, COVID19 FLU RSV #### [place] [address] [place] Globulin (S) [Mass/Vol] 2.7 g/dL Normal [facility] Comment on above: Performed By: #### C EPHEID NEG, COVID19 FLU RSV #### [address] Glucose [Mass/Vol] 117 mg/dL High 70-[address] [facility] Comment on above: Result Comment: [facility] Glucose Reference Range is dependent on time and content of last meal. Glucose of more than 200 mg/dL in a nonstressed, ambulatory subject supports the diagnosis of Diabetes Mellitus. ADA recommended reference range Performed By: #### C EPHEID NEG, COVID19 FLU RSV #### [address] Potassium [Moles/Vol] 4.1 mmol/L Normal 3.5-5.[address] [facility] Comment on above: Result Comment: Hemo lysis is present at a level that could interfere with the result. Contact lab if redraw is required Performed By: #### C EPHEID NEG, COVID19 FLU RSV #### [address] Protein [Mass/Vol] 6.8 g/dL Normal 6.4-8.[address] [facility] Comment on above: Performed By: #### C EPHEID NEG, COVID19 FLU RSV #### [place] [address] [place] Sodium [Moles/Vol] 139 mmol/L Normal 136-[address] [facility] Comment on above: Performed By: #### C EPHEID NEG, COVID19 FLU RSV #### [facility] [address] [place] [address] [place] Urea nitrogen [Mass/Vol] 16 mg/dL Normal 7-[address] [facility] Comment on above: Performed By: #### C EPHEID NEG, COVID19 FLU RSV #### [facility] [address] [place] [id number] [place] Creatine Kinaseon 07-05-2024 CK [Catalytic activity/Vol] 113 U/L Normal 30-[address] [facility] Comment on above: Performed By: #### C EPHEID NEG, COVID19 FLU RSV #### [facility] [address] [place] [address] [place] Creatine kinase [Enzymatic a ctivity/volume] in Serum or PlasmaOrdered By: Trevin Sepulveda on 07-05-2024 CK [Catalytic activity/Vol] Creatine kinase [Enzymatic activity/volume] in Serum or Plasma 30-223 [facility] Creatinine [Mass/volume] in Serum or PlasmaOrdered By: Trevin Sepulveda on 07-05-2024 Creatinine [Mass/Vol] Creatinine [Mass/volume] in Serum or Plasma 0.60-1.20 [facility] Eosinophils Auto (Bld) [#/Vo l]Ordered By: Trevin Sepulveda on 07-05-2024 Eosinophils (Bld) [#/Vol] Automated eosinophil count 0.0-0.45 [facility] Eosinophils/100 WBC Auto (Bl d)Ordered By: Trevin Sepulveda on 07-05-2024 Eosinophils/100 WBC (Bld) Automated eosinophil % . [facility] Erythrocyte distribution wid th Auto (RBC) [Ratio]Ordered By: Trevin Sepulveda on 07-05-2024 Erythrocyte distribution width (RBC) [Ratio] Erythrocyte distribution width [Ratio] by Automated count 11.9-15.3 [facility] Globulin Calc (S) [Mass/Vol] Ordered By: Genie Man on 07-05-2024 Globulin (S) [Mass/Vol] Serum globulin measurement by calculation (mass/volume) [facility] Globulin Calc (S) [Mass/Vol] Ordered By: Trevin Sepulveda on 07-05-2024 Globulin (S) [Mass/Vol] Serum globulin measurement by calculation (mass/volume) [facility] Glucose [Mass/volume] in Ser um or PlasmaOrdered By: Trevin Sepulveda on 07-05-2024 Glucose [Mass/Vol] Glucose [Mass/volume ] in Serum or Plasma High 70-100 [facility] Comment on above: ADA recommended refe rence rangeRandom Glucose Reference Range is dependent on time and content of last meal. Glucose of more than 200 mg/dL in a nonstressed, ambulatory subject supports the diagnosis of Diabetes Mellitus. Gram Stainon 07-05-2024 Microscopic observation Gram stain Nom (Unsp spec) Gram Stain Result 4+ Gram Positive Cocci 3+ Gram Positive Bacilli 2+ White Blood Cells 2+ Epithelial Cells PERFORMED BY: [place] [address] PATHOLOGIST ASPHALT ENGINEER ELLA CLAY M.D. Normal [facility] Comment on above: Performed By: #### C EPHEID NEG, COVID19 FLU RSV #### [address] Gram stain microscopyOrdered By: Genie Man on 07-05-2024 Microscopic observation Gram stain Nom (Unsp spec) Gram stain microscopy [facility] Hematocrit Auto (Bld) [Volum e fraction]Ordered By: Trevin Sepulveda on 07-05-2024 Hematocrit (Bld) [Volume fraction] Hematocrit [Volume Fraction] of Blood by Automated count High 34.0-46.4 [facility] Hemoglobin [Mass/volume] in BloodOrdered By: Trevin Sepulveda on 07-05-2024 Hemoglobin (Bld) [Mass/Vol] Hemoglobin [Mass/volume] in Blood High 11.8-15.4 [facility] Leukocytes [#/volume] correc bozena for nucleated erythrocytes in Blood by Automated counOrdered By: Trevin Sepulveda on 07-05-2024 WBC corrected for nucl RBC Auto (Bld) [#/Vol] Leukocytes [#/volume] corrected for nucleated erythrocytes in Blood by Automated coun 3.8-11.6 [facility] Lymphocytes Auto (Bld) [#/Vo l]Ordered By: Trevin Sepulveda on 07-05-2024 Lymphocytes (Bld) [#/Vol] Lymphocytes [#/volume] in Blood by Automated count 1.00-4.8 [facility] Lymphocytes/100 WBC Auto (Bl d)Ordered By: Trevin Sepulveda on 07-05-2024 Lymphocytes/100 WBC (Bld) Lymphocytes/100 leukocytes in Blood by Automated count . [facility] MCH Auto (RBC) [Entitic mass ]Ordered By: Trevin Sepulveda on 07-05-2024 MCH (RBC) [Entitic mass] MCH [Entitic mass] by Automated count 24.7-34.3 [facility] MCHC Auto (RBC) [Mass/Vol]Or dered By: Trevin Sepulveda on 07-05-2024 MCHC (RBC) [Mass/Vol] MCHC [Mass/volume] by Automated count 32.0-35.0 [facility] MCV Auto (RBC) [Entitic vol] Ordered By: Trevin Sepulveda on 07-05-2024 MCV (RBC) [Entitic vol] MCV [Entitic vol ume] by Automated count 80-100 [facility] Monocyte distribution width [Entitic volume] in Blood by AutomatedOrdered By: Genie Man on 07-05-2024 Monocyte distribution width Auto (Bld) [Entitic vol] Monocyte distribution width [Entitic volume] in Blood by Automated 0.00-20.00 [facility] Monocyte distribution width [Entitic volume] in Blood by AutomatedOrdered By: Trevin Sepulveda on 07-05-2024 Monocyte distribution width Auto (Bld) [Entitic vol] Monocyte distribution width [Entitic volume] in Blood by Automated 0.00-20.00 [facility] Monocytes Auto (Bld) [#/Vol] Ordered By: Trevin Sepulveda on 07-05-2024 Monocytes (Bld) [#/Vol] Automated blood monocyte count High 0.0-0.8 [facility] Monocytes/100 WBC Auto (Bld) Ordered By: Trevin Sepulveda on 07-05-2024 Monocytes/100 WBC (Bld) Automated monocyte % . [facility] Natriuretic peptide B [Mass/ Vol]Ordered By: Trevin Sepulveda on 07-05-2024 Natriuretic peptide B (Bld) [Mass/Vol] BNP ser/plas 5-100 [facility] Neutrophils Auto (Bld) [#/Vo l]Ordered By: Trevin Sepulveda on 07-05-2024 Neutrophils (Bld) [#/Vol] Neutrophils [#/volume] in Blood by Automated count 1.8-7.7 [facility] Neutrophils/100 WBC Auto (Bl d)Ordered By: Trevin Sepulveda on 07-05-2024 Neutrophils/100 WBC (Bld) Automated neutrophil % . [facility] No Panel InformationOrdered By: Trevin Sepulveda on 07-05-2024 Estimated GFR (CKD-EPI) > 60.0 mL/Min [facility] Creatinine Clearance (Chem 65.71 [facility] Nucleated erythrocytes [Pres ence] in Blood by Automated countOrdered By: Trevin Sepulveda on 07-05-2024 Nucleated RBC Auto Ql (Bld) Nucleated erythrocytes [Presence] in Blood by Automated count 0-0.5 [facility] Platelet mean volume Auto (B ld) [Entitic vol]Ordered By: Trevin Sepulveda on 07-05-2024 Platelet mean volume (Bld) [Entitic vol] Platelet mean volume [Entitic volume] in Blood by Automated count 6.3-10.7 [facility] Platelets Auto (Bld) [#/Vol] Ordered By: Trevin Sepulveda on 07-05-2024 Platelets (Bld) [#/Vol] Platelets [#/vol ume] in Blood by Automated count 150-450 [facility] Potassium [Moles/volume] in Serum or PlasmaOrdered By: Trevin Sepulveda on 07-05-2024 Potassium [Moles/Vol] Potassium [Moles/volume] in Serum or Plasma 3.5-5.1 [facility] Comment on above: Hemolysis is present at a level that could interfere with the result.Contact lab if redraw is required Protein [Mass/volume] in Ser um or PlasmaOrdered By: Genie Man on 07-05-2024 Protein [Mass/Vol] Protein [Mass/volume ] in Serum or Plasma Low 6.4-8.9 [facility] Protein [Mass/volume] in Ser um or PlasmaOrdered By: Trevin Sepulveda on 07-05-2024 Protein [Mass/Vol] Protein [Mass/volume ] in Serum or Plasma 6.4-8.9 [facility] RBC Auto (Bld) [#/Vol]Ordere d By: Trevin Sepulveda on 07-05-2024 RBC (Bld) [#/Vol] Erythrocytes [#/volume] in Blood by Automated count High 3.60-5.00 [facility] Serum or plasma albumin/glob ulin mass ratioOrdered By: Genie Man on 07-05-2024 Albumin/Globulin [Mass ratio] Serum or plasma albumin/globulin mass ratio [facility] Serum or plasma albumin/glob ulin mass ratioOrdered By: Trevin Sepulveda on 07-05-2024 Albumin/Globulin [Mass ratio] Serum or plasma albumin/globulin mass ratio [facility] Serum or plasma anion gap de terminationOrdered By: Trevin Sepulveda on 07-05-2024 Anion gap [Moles/Vol] Serum or plasma an ion gap determination 6.0-15.0 [facility] Sodium [Moles/volume] in Ser um or PlasmaOrdered By: Trevin Sepulveda on 07-05-2024 Sodium [Moles/Vol] Sodium [Moles/volume ] in Serum or Plasma 136-145 [facility] Troponin I High Sensitivityo n 07-05-2024 Troponin I High Sensitivity 18 High 0-[address] [facility] Comment on above: Result Comment: The Troponin units of report have been changed to meet the Chest Pain Accreditation requirement, element EC5.M1l2. Troponin units are changed from pg/ml to ng/L. Also, the decimal is removed and results are in whole numbers. PERFORMED BY: [place] [address] PATHOLOGIST [employer] ENGINEER ELLA CLAY M.D. Performed By: #### C EPHEID NEG, COVID19 FLU RSV #### [address] Troponin I High Sensitivity 27 High 0-[address] [facility] Comment on above: Result Comment: The Troponin units of report have been changed to meet the Chest Pain Accreditation requirement, element EC5.M1l2. Troponin units are changed from pg/ml to ng/L. Also, the decimal is removed and results are in whole numbers. PERFORMED BY: [place] [address] PATHOLOGIST [employer] ENGINEER ELLA CLAY M.D. Performed By: #### C EPHEID NEG, COVID19 FLU RSV #### [address] Troponin I.cardiac [Mass/vol ume] in Serum or Plasma by Detection limit <= 0.01 ng/Ordered By: Genie Man on 07-05-2024 Troponin I.cardiac DL <= 0.01 ng/mL [Mass/Vol] Troponin I.cardiac [Mass/volume] in Serum or Plasma by Detection limit <= 0.01 ng/ High 015 [facility] Comment on above: The Troponin units o f report have been changed to meet the Chest Pain Accreditation requirement, element EC5.M1l2. Troponin units are changed from pg/ml to ng/L. Also, the decimal is removed and results are in whole numbers. Troponin I.cardiac [Mass/vol ume] in Serum or Plasma by Detection limit <= 0.01 ng/Ordered By: Trevin Sepulveda on 07-05-2024 Troponin I.cardiac DL <= 0.01 ng/mL [Mass/Vol] Troponin I.cardiac [Mass/volume] in Serum or Plasma by Detection limit <= 0.01 ng/ High [address] Comment on above: The Troponin units o f report have been changed to meet the Chest Pain Accreditation requirement, element EC5.M1l2. Troponin units are changed from pg/ml to ng/L. Also, the decimal is removed and results are in whole numbers. Urea nitrogen [Mass/volume] in Serum or PlasmaOrdered By: Trevin Sepulveda on 07-05-2024 Urea nitrogen [Mass/Vol] Urea nitrogen [Mass/volume] in Serum or Plasma 725 [facility] WBC Auto (Bld) [#/Vol]Ordere d By: Trevin Sepulveda on 07-05-2024 WBC (Bld) [#/Vol] Leukocytes [#/volume ] in Blood by Automated count 3.8-11.6 [facility] X-ray reportOrdered By: Alexey West on 07-05-2024 Study report [facility] [place] [address] [place] [address] XRay Report Signed Patient: Pepper Ernandez MR#: [id number] : 1955 Acct:[id number] Age/Sex: 69 / F ADM Date: 5 Loc: 3T Room: [address] [place] [address] Type: ADM IN Attending Dr: Eliu Schmitz MD Copies to: MD Trevin Jeronimo Jr, MD~ Ordering Provider: Trevin Sepulveda Jr, MD Date [...] West M.D. 07/05/2024 10:42 AM Dictation Location: [facility]- Transcribed By: [facility] 07/05/24 1042 Dictated By: Phillip West MD 07/05/24 1041 Signed By: 07/05/24 1042 [facility] Work Phone: XR chest 1V portableon 07-05 XR chest 1V portable [facility] [place] [address] [place], [place] [id number] XRay Report Signed Patient: Pepper Ernandez MR#: [id number] 0 : 1955 Acct:[id number] Age/Sex: 69 / F ADM Date: 07/05/24 Loc: 3T Room: [address] [place] [address] Type: ADM IN Attending Dr: Eliu Schmitz [...] West M.D. 07/05/2024 10:42 AM Dictation Location: [place] [address] Transcribed By: [facility] 07/05/24 1042 Dictated By: Phillip West MD 07/05/24 1041 Signed By: 07/05/[address] [facility] COVID Cepheid NegativeOrdere d By: Trevin Sepulveda on 07-04-2024 SARS-CoV-2 (COVID-19) Ab IA Ql COVID Cepheid Negative [facility] Comment on above: This is a duplicate Cepheid Xpert Xpress CoV-2/Flu/RSV Plus RNA by RT-PCR result to be used for statistical tracking purpose only. COVID-19 / Flu A/B / RSV PCR on 07-04-2024 SARS-CoV-2 (COVID-19) RNA CHRISTY+probe Ql (Unsp spec) COVID-19 Cepheid Result Negative for SARS-CoV-2 RNA [...] or Cepheid Disclaimer revoked sooner. PERFORMED BY: [place] [address] PATHOLOGIST [employer] ENGINEER ELLA CLAY M.D. Normal [facility] Comment on above: Performed By: #### C EPHEID NEG, COVID19 FLU RSV #### [address] Cepheid COVID PCR Negativeon 07-04-2024 SARS-CoV-2 (COVID-19) RNA CHRISTY+probe Ql (Unsp spec) Negative Normal Negative [facility] Comment on above: Result Comment: This is a duplicate Cepheid Xpert Xpress CoV-2/Flu/RSV Plus RNA by RT-PCR result to be used for statistical tracking purpose only. PERFORMED BY: [place] [address] PATHOLOGIST [employer]HALT ENGINEER ELLA CLAY M.D. Performed By: #### C EPHEID NEG, COVID19 FLU RSV #### [place] [id number] [facility] ECG 12 lead ECGon 07-04-2024 ECG 12 lead ECG [facility] [place] [address] [place] [address] Electrocardiograph Report Signed Patient: Pepper Ernandez MR#: [id number] 0 : 1955 Acct:[id number] Age/Sex: 69 / F ADM Date: 07/05/24 Loc: Room: [address] [place] [address] Type: ADM IN Attending Dr: Eliu Schmitz [...] ECGs available Confirmed by TREVIN SEPULVEDA MD ([id number]) on 07/05/2024 10:03:37 PM Referred By: Electronically Signed By: TREVIN SEPULVEDA MD Transcribed By: MUS Signed By Trevin Sepulveda Jr, MD [address] [facility] Respiratory specimen influen za A virus, influenza B virus, respiratory syncytical virOrdered By: Trevin Sepulveda on 07-04-2024 SARS-CoV-2 (COVID-19) RNA CHRISTY+probe Ql (Unsp spec) Respiratory specimen influenza A virus, influenza B virus, respiratory syncytical vir [facility] ALL CBC WITH AUTO DIFFon BASOPHILS ABSOLUTE AUTO 0.0 N [facility] Basophils/100 WBC (Bld) 0.3 % 0.2 - 2.0 % [facility] Eosinophils/100 WBC (Bld) 3.2 % 0.9 - 7.0 % [facility] Erythrocyte distribution width (RBC) [Ratio] 12.6 % 11.0 - 15.0 % [facility] Hematocrit (Bld) [Volume fraction] 47.2 % 36.0 - 48.0 % [facility] Hemoglobin (Bld) [Mass/Vol] 16.1 g/dL High 12.0 - 16.0 g/dL [facility] IMMATURE GRANULOCYTES ABS AUTO 0.02 [facility] Immature granulocytes/100 WBC (Bld) 0.2 % 0.0 - 0.5 % [facility] Interpretation and review of laboratory results Abnormal [facility] LYMPHOCYTES ABSOLUTE AUTO 3.9 High [facility] Lymphocytes/100 WBC (Bld) 39.7 % 20.5 - 60.0 % [facility] MCH (RBC) [Entitic mass] 32.1 pg 26.7 - 34.0 pg [facility] MCHC (RBC) [Mass/Vol] 34.1 g/dL 29.9 - 35.2 g/dL [facility] MCV (RBC) [Entitic vol] 94.2 fL 81.0 - 99.0 fL [facility] MONOCYTES ABSOLUTE AUTO 0.8 N [facility] Monocytes/100 WBC (Bld) 8.2 % 1.7 - 12.0 % [facility] NEUTROPHILS ABSOLUTE AUTO 4.7 [facility] Neutrophils/100 WBC (Bld) 48.4 % 43.0 - 75.0 % [facility] Platelet mean volume (Bld) [Entitic vol] 10.4 fL 9.5 - 13.5 fL [facility] TBH EO # 0.3 [facility] TB PLT [address] [facility] RBC 5.[address] [facility] WBC 9.7 [facility] ALL BASIC METABOLIC PANELon 11-20-2023 Anion gap [Moles/Vol] 11.6 mmol/L [facility] Calcium [Mass/Vol] 8.7 mg/dL 8.5 - 10. 1 mg/dL [facility] Chloride [Moles/Vol] 108 mmol/L High 98 - 10 7 mmol/L [facility] CO2 [Moles/Vol] 27.6 mmol/L 21.0 - 32.0 mmol/L [facility] Creatinine [Mass/Vol] 0.72 mg/dL 0.55 - 1.02 mg/dL [facility] GFR/1.73 sq M.predicted CKD-EPI (S/P/Bld) [Vol rate/Area] >60 60 - PINF [facility] Glucose [Mass/Vol] 114 mg/dL High 74 - 106 mg/dL [facility] Interpretation and review of laboratory results Abnormal [facility] Potassium [Moles/Vol] 4.2 mmol/L 3.5 - 5.1 mmol/L [facility] Sodium [Moles/Vol] 143 mmol/L 136 - 145 mmol/L [facility] TBH EGFR-NON AF IRISH >60 60 - PINF [facility] Urea nitrogen [Mass/Vol] 15.0 mg/dL 7.0 - 18.0 mg/dL [facility] Urea nitrogen/Creatinine [Mass ratio] 20.8 mg/mg [facility] ALL CBC WITH AUTO DIFFon BASOPHILS ABSOLUTE AUTO 0.0 [facility] Basophils/100 WBC (Bld) 0.5 % 0.2 - 2.0 % [facility] Eosinophils/100 WBC (Bld) 3.5 % 0.9 - 7.0 % [facility] Erythrocyte distribution width (RBC) [Ratio] 12.1 % 11.0 - 15.0 % [facility] Hematocrit (Bld) [Volume fraction] 41.9 % 36.0 - 48.0 % [facility] Hemoglobin (Bld) [Mass/Vol] 14.0 g/dL 12.0 - 16.0 g/dL [facility] IMMATURE GRANULOCYTES ABS AUTO 0.02 [facility] Immature granulocytes/100 WBC (Bld) 0.2 % 0.0 - 0.5 % [facility] LYMPHOCYTES ABSOLUTE AUTO 3.0 [facility] Lymphocytes/100 WBC (Bld) 36.2 % 20.5 - 60.0 % [facility] MCH (RBC) [Entitic mass] 31.8 pg 26.7 - 34.0 pg [facility] MCHC (RBC) [Mass/Vol] 33.4 g/dL 29.9 - 35.2 g/dL [facility] MCV (RBC) [Entitic vol] 95.2 fL 81.0 - 99.0 fL [facility] MONOCYTES ABSOLUTE AUTO 0.7 N [facility] Monocytes/100 WBC (Bld) 8.7 % 1.7 - 12.0 % [facility] NEUTROPHILS ABSOLUTE AUTO 4.2 [facility] Neutrophils/100 WBC (Bld) 50.9 % 43.0 - 75.0 % [facility] Platelet mean volume (Bld) [Entitic vol] 10.2 fL 9.5 - 13.5 fL [facility] TBH EO # 0.3 [facility] TBH PLT 311 [facility] TB RBC 4.40 [facility] TB WBC 8.2 [facility] EXTERNAL PHOTOS OU (BOTH EYE S)on 10-09-2023 [facility] Radiology Study observation (narrative) [facility] PTOSIS VISUAL FIELD OU (BOTH EYES)on 10-09-2023 [facility] Radiology Study observation (narrative) [facility] CBC AUTO DIFFon 04-24-2022 BASO # 0.1 103/ul Normal 0.0-0.1 [facility] Comment on above: Performed By: #### C BC #### [facility] [address] [place] [address] [address] Brigette Peñaloza Basophils/100 WBC (Bld) 0.7 % Normal 0.2-2.0 [facility] Comment on above: Performed By: #### C BC #### [facility] [address] [place] [address] Dr. Brigette Peñaloza EO # 0.3 103/ul Normal 0.0-0.7 [facility] Comment on above: Performed By: #### C BC #### [facility] [address] [place] [address] Dr. Brigette Peñaloza Eosinophils/100 WBC (Bld) 4.9 % Normal 0.9-7.0 [facility] Comment on above: Performed By: #### C BC #### [facility] [address] [place] [address] Dr. Brigette Peñaloza Erythrocyte distribution width (RBC) [Ratio] 12.7 % Normal 11.0-15.0 [facility] Comment on above: Performed By: #### C BC #### [facility] [address] [place] [address] Dr. Brigette Peñaloza Hematocrit (Bld) [Volume fraction] 48.0 % Normal 36.0-48.0 [facility] Comment on above: Performed By: #### C BC #### [facility] [address] [place] [address] Dr. Brigette Peñaloza Hemoglobin (Bld) [Mass/Vol] 16.1 g/dL Critically high 12.0-16.0 [facility] Comment on above: Performed By: #### C BC #### [facility] [address] [place] [address] Dr. Brigette Peñaloza IG # 0.02 10e3/ul Normal 0.00-0.03 [facility] Comment on above: Performed By: #### C BC #### [facility] [address] [place] [address] Dr. Brigette Peñaloza IG % 0.3 % Normal 0.0-0.5 [facility] Comment on above: Performed By: #### C BC #### [facility] [address] [place] [address] Dr. Brigette Peñaloza LYMPH # 2.7 103/ul Normal 1.2-3.8 [facility] Comment on above: Performed By: #### C BC #### [facility] [address] [place] [address] Dr. Brigette Peñaloza Lymphocytes/100 WBC (Bld) 39.2 % Normal 20.5-60.0 [facility] Comment on above: Performed By: #### C BC #### [facility] [address] [place] [address] Dr. Brigette Peñaloza MANUAL DIFF REQ NO Normal [facility] Comment on above: Performed By: #### C BC #### [facility] [address] [place] [address] Dr. Brigette Peñaloza MCH (RBC) [Entitic mass] 30.3 pg Normal 26.7-34.0 [facility] Comment on above: Performed By: #### C BC #### [facility] [address] [place] [address] Dr. Brigette Peñaloza MCHC (RBC) [Mass/Vol] 33.5 g/dL Normal 29.9-35.2 [facility] Comment on above: Performed By: #### C BC #### [facility] [address] [place] [address] Dr. Brigette Peñaloza MCV (RBC) [Entitic vol] 90.4 fL Normal 81.0-99.0 [facility] Comment on above: Performed By: #### C BC #### [facility] [address] [place] [address] Dr. Brigette Peñaloza MONO # 0.7 103/ul Normal 0.3-0.8 [facility] Comment on above: Performed By: #### C BC #### [facility] [address] [place] [address] Dr. Brigette Peñaloza Monocytes/100 WBC (Bld) 9.9 % Normal 1.7-12.0 [facility] Comment on above: Performed By: #### C BC #### [facility] [address] [place] [address] Dr. Brigette Peñaloza NEUT # 3.1 103/ul Normal 1.4-6.5 [facility] Comment on above: Performed By: #### C BC #### [facility] [address] [place] [address] Dr. Brigette Peñaloza Neutrophils/100 WBC (Bld) 45.0 % Normal 43.0-75.0 [facility] Comment on above: Performed By: #### C BC #### [facility] [address] [place] [address] Dr. Brigette Peñaloza Platelet mean volume (Bld) [Entitic vol] 10.2 fL Normal 9.5-13.5 [facility] Comment on above: Performed By: #### C BC #### [facility] [address] [place] [address] Dr. Brigette Peñaloza PLT 283 103/ul Normal 150-450 [facility] Comment on above: Performed By: #### C BC #### [facility] [address] [place] [address] Dr. Brigette Peñaloza RBC 5.31 106/ul Normal 4.20-5.40 [facility] Comment on above: Performed By: #### C BC #### [facility] [address] [place] [address] Dr. Brigette Peñaloza WBC 7.0 103/ul Normal 4.0-11.0 [facility] Comment on above: Performed By: #### C BC #### [facility] [address] [place] [address] Dr. Brigette Peñaloza GLYCOHEMOGLOBIN A1Con 2022 ADA RECOMMENDATION SEE BELOW Normal [facility] Comment on above: Result Comment: ADA RECOMMENDED LIMIT 4.0 - 6.0 ADA THERAPEUTIC TARGET < 7.0 ACTION SUGGESTED > 7.0 Performed By: #### A 1C #### [facility] [address] [place] [address] [address] Brigette Peñaloza Glucose [Mass/Vol] 117 mg/dL Normal [facility] Comment on above: Performed By: #### A 1C #### [facility] [address] [address] [address] Brigette Peñaloza HbA1c (Bld) [Mass fraction] 5.7 % Normal 4.5-6.2 [facility] Comment on above: Performed By: #### A 1C #### [facility] [address] [place] [address] Dr. Brigette Peñaloza LIPID PROFILEon 04-24-2022 CHOL-HDL RATIO NORM SEE BELOW Normal [facility] Comment on above: Result Comment: 3.3 - 4.4 LOW RISK 4.4 - 7.1 AVERAGE RISK 7.1 - 11.0 MODERATE RISK >11.0 HIGH RISK Performed By: #### L IPID, TSH, LIVER, BMP #### [facility] [address] [address] [address] Brigette Peñaloza Cholesterol [Mass/Vol] 187 mg/dL Normal <=200 [facility] Comment on above: Performed By: #### L IPID, TSH, LIVER, BMP #### [facility] [address] [place] [address] Dr. Brigette Peñaloza Cholesterol in HDL [Mass/Vol] 54 mg/dL Normal 40-60 [facility] Comment on above: Performed By: #### L IPID, TSH, LIVER, BMP #### [facility] [address] [place] [address] [address] Brigette Peñaloza Cholesterol in LDL [Mass/Vol] 105.6 mg/dL Normal [facility] Comment on above: Performed By: #### L IPID, TSH, LIVER, BMP #### [facility] [address] [address] [address] Brigette Peñaloza Cholesterol.total/Mini sterol in HDL [Mass ratio] 3.5 {ratio} Normal [facility] Comment on above: Performed By: #### L IPID, TSH, LIVER, BMP #### [facility] [address] [address] [address] Brigette Peñaloza HDL NORMAL > or = 60 mg/dl - LO W CARDIOVASCULAR RISK <40 mg/dl - HIGH CARDIOVASCULAR RISK Normal [facility] Comment on above: Performed By: #### L IPID, TSH, LIVER, BMP #### [facility] [address] [address] [address] Brigette Peñaloza LDL CALC NORMAL SEE BELOW Normal [facility] Comment on above: Result Comment: <100 mg/dl OPTIMAL 100 - 129 mg/dl NEAR OR ABOVE OPTIMAL 130 - 159 mg/dl BORDERLINE HIGH 160 - 189 mg/dl HIGH >190 mg/dl VERY HIGH Performed By: #### L IPID, TSH, LIVER, BMP #### [facility] [address] [address] [address] Brigette Peñaloza Triglyceride [Mass/Vol] 137 mg/dL Normal <=150 [facility] Comment on above: Performed By: #### L IPID, TSH, LIVER, BMP #### [facility] [address] [address] [address] Brigette Peñaloza VLDL CALC 27.4 mg/dL Normal [facility] Comment on above: Performed By: #### L IPID, TSH, LIVER, BMP #### [facility] [address] [address] [address] Brigette Peñaloza LIVER PROFILEon 04-24-2022 Albumin [Mass/Vol] 3.6 g/dL Normal 3.4-5.0 [facility] Comment on above: Performed By: #### L IPID, TSH, LIVER, BMP #### [facility] [address] [address] [address] Brigette Peñaloza Albumin/Globulin [Mass ratio] 1.0 {ratio} Normal [facility] Comment on above: Performed By: #### L IPID, TSH, LIVER, BMP #### [facility] [address] [address] [address] Brigette Peñaloza ALP [Catalytic activity/Vol] 97 U/L Normal 46-116 [facility] Comment on above: Performed By: #### L IPID, TSH, LIVER, BMP #### [facility] [address] [place] [address] Dr. Brigette Peñaloza ALT [Catalytic activity/Vol] 41 U/L Normal 14-59 [facility] Comment on above: Performed By: #### L IPID, TSH, LIVER, BMP #### [facility] [address] [place] [address] Dr. Brigette Peñaloza AST [Catalytic activity/Vol] 24 U/L Normal 15-37 [facility] Comment on above: Performed By: #### L IPID, TSH, LIVER, BMP #### [facility] [address] [place] [address] Dr. Brigette Peñaloza BILI, CONJUGATED 0.1 mg/dL Normal 0.0-0.2 [facility] Comment on above: Performed By: #### L IPID, TSH, LIVER, BMP #### [facility] [address] [place] [address] Dr. Brigette Peñaloza Bilirubin [Mass/Vol] 0.3 mg/dL Normal 0.2-1.0 [facility] Comment on above: Performed By: #### L IPID, TSH, LIVER, BMP #### [facility] [address] [place] [address] Dr. Brigette Peñaloza Globulin (S) [Mass/Vol] 3.5 g/dL Normal [facility] Comment on above: Performed By: #### L IPID, TSH, LIVER, BMP #### [facility] [address] [place] [address] Dr. Brigette Peñaloza Protein [Mass/Vol] 7.1 g/dL Normal 6.4-8.2 [facility] Comment on above: Performed By: #### L IPID, TSH, LIVER, BMP #### [facility] [address] [place] [address] Dr. Brigette Peñaloza PROF CHEM 8 (BAS METB)on Anion gap [Moles/Vol] 8.7 mmol/L Normal [facility] Comment on above: Performed By: #### L IPID, TSH, LIVER, BMP #### [facility] [address] [address] [address] Brigette Peñaloza Calcium [Mass/Vol] 9.1 mg/dL Normal 8.5-10.1 [facility] Comment on above: Performed By: #### L IPID, TSH, LIVER, BMP #### [facility] [address] [address] [address] Brigette Peñaloza Chloride [Moles/Vol] 106 mmol/L Normal 98-107 [facility] Comment on above: Performed By: #### L IPID, TSH, LIVER, BMP #### [facility] [address] [place] [address] Dr. Brigette Peñaloza CO2 [Moles/Vol] 29.7 mmol/L Normal 21.0-32.0 [facility] Comment on above: Performed By: #### L IPID, TSH, LIVER, BMP #### [facility] [address] [place] [address] Dr. Brigette Peñaloza Creatinine [Mass/Vol] 0.81 mg/dL Normal 0.55-1.02 [facility] Comment on above: Performed By: #### L IPID, TSH, LIVER, BMP #### [facility] [address] [place] [address] Dr. Brigette Peñaloza EGFR-AF IRISH >60 Normal >=60 [facility] Comment on above: Performed By: #### L IPID, TSH, LIVER, BMP #### [facility] [address] [place] [address] Dr. Brigette Peñaloza EGFR-NON AF IRISH >60 Normal >=60 [facility] Comment on above: Performed By: #### L IPID, TSH, LIVER, BMP #### [facility] [address] [place] [address] Dr. Brigette Peñaloza Glucose [Mass/Vol] 114 mg/dL Critically high 74-106 [facility] Comment on above: Performed By: #### L IPID, TSH, LIVER, BMP #### [facility] [address] [place] [address] Dr. Brigette Peñaloza Potassium [Moles/Vol] 4.4 mmol/L Normal 3.5-5.1 [facility] Comment on above: Performed By: #### L IPID, TSH, LIVER, BMP #### [facility] [address] [place] [address] Dr. Brigette Peñaloza Sodium [Moles/Vol] 140 mmol/L Normal 136-145 [facility] Comment on above: Performed By: #### L IPID, TSH, LIVER, BMP #### [facility] [address] [place] [address] Dr. Brigette Peñaloza Urea nitrogen [Mass/Vol] 9.0 mg/dL Normal 7.0-18.0 [facility] Comment on above: Performed By: #### L IPID, TSH, LIVER, BMP #### [facility] [address] [place] [address] Dr. Brigette Peñaloza Urea nitrogen/Creatinine [Mass ratio] 11.1 mg/mg Normal [facility] Comment on above: Performed By: #### L IPID, TSH, LIVER, BMP #### [facility] [address] [place] [address] Dr. Brigette Peñaloza TSHon 04-24-2022 TSH 1.598 uIU/mL Normal 0.358-3.740 [facility] Comment on above: Performed By: #### L IPID, TSH, LIVER, BMP #### [facility] [address] [place] [address] Dr. Brigette Peñaloza VITAMIN D 25 OHon 04-24-2022 VIT D 25-OH 50.4 ng/mL Normal [facility] Comment on above: Performed By: #### V ITAD #### [facility] [address] [place] [address] Dr. Brigette Peñaloza VIT D RANGES SEE BELOW Normal [facility] Comment on above: Result Comment: <20 ng/mL Vit D deficient 20 - <30 ng/mL Vit D insufficient 30 - 100 ng/mL Vit D sufficient >100 ng/mL Potential Toxicity Performed By: #### V ITAD #### [facility] [address] [place] [address] Dr. Brigette Peñaloza Vital Signs Date Time Vital Sign Value Performing Clinician Facility 10-21-2024 10:05-0400 Body height 167.6 cm Francesca Munson DO Work Phone: [facility] 10-21-2024 10:05-0400 Body mass index (BMI) [Ratio] 30.28 kg/m2 Francesca Munson DO Work Phone: [facility] 10-21-2024 10:05-0400 Body weight 85.09 kg Francesca Munson DO Work Phone: [facility] 10-21-2024 10:05-0400 Diastolic blood pressure 85 mm[Hg] Francesca Munson DO Work Phone: [facility] 10-21-2024 10:05-0400 Heart rate 70 /min Francesca Munson DO Work Phone: [facility] 10-21-2024 10:05-0400 Systolic blood pressure 132 mm[Hg] Francesca Munson DO Work Phone: [facility] 10-13-2024 10:09-0400 Body height 167.6 cm Jignesh Saez MD Work Phone: [facility] 10-13-2024 10:09-0400 Body mass index (BMI) [Ratio] 30.51 kg/m2 Jignesh Saez MD Work Phone: [facility] 10-13-2024 10:09-0400 Body temperature 96.4 [degF] Jignesh Saez MD Work Phone: [facility] 10-13-2024 10:09-0400 Body weight 85.73 kg Jignesh Saez MD Work Phone: [facility] 10-13-2024 10:09-0400 Diastolic blood pressure 78 mm[Hg] Jignesh Saez MD Work Phone: [facility] 10-13-2024 10:09-0400 Heart rate 71 /min Jignesh Saez MD Work Phone: [facility] 10-13-2024 10:09-0400 Respiratory rate 22 /min Jignesh Saez MD Work Phone: [facility] 10-13-2024 10:09-0400 SaO2% (BldA) [Mass fraction] 94 % Jignesh Saez MD Work Phone: [facility] 10-13-2024 10:09-0400 Systolic blood pressure 138 mm[Hg] Jignesh Saez MD Work Phone: [facility] 09-10-2024 11:47-0400 Body height 167.6 cm Jignesh Saez MD Work Phone: [facility] 09-10-2024 11:47-0400 Body mass index (BMI) [Ratio] 30.83 kg/m2 Jignesh Saez MD Work Phone: [facility] 09-10-2024 11:47-0400 Body temperature 96.6 [degF] Jignesh Saez MD Work Phone: [facility] 09-10-2024 11:47-0400 Body weight 86.64 kg Jignesh Saez MD Work Phone: [facility] 09-10-2024 11:47-0400 Diastolic blood pressure 66 mm[Hg] Jignesh Saez MD Work Phone: [facility] 09-10-2024 11:47-0400 Heart rate 82 /min Jignesh Saez MD Work Phone: [facility] 09-10-2024 11:47-0400 Respiratory rate 22 /min Jignesh Saez MD Work Phone: [facility] 09-10-2024 11:47-0400 SaO2% (BldA) [Mass fraction] 98 % Jignesh Saez MD Work Phone: [facility] 09-10-2024 11:47-0400 Systolic blood pressure 114 mm[Hg] Jignesh Saez MD Work Phone: [facility] 07-15-2024 11:00-0400 Body height 167.6 cm Jignseh Saez MD Work Phone: [facility] 07-15-2024 11:00-0400 Body mass index (BMI) [Ratio] 30.67 kg/m2 Jignesh Saez MD Work Phone: [facility] 07-15-2024 11:00-0400 Body temperature 97.3 [degF] Jignesh Saez MD Work Phone: [facility] 07-15-2024 11:00-0400 Body weight 86.18 kg Jignesh Saez MD Work Phone: [facility] 07-15-2024 11:00-0400 Diastolic blood pressure 82 mm[Hg] Jignesh Saez MD Work Phone: [facility] 07-15-2024 11:00-0400 Heart rate 81 /min Jignesh Saez MD Work Phone: [facility] 07-15-2024 11:00-0400 Respiratory rate 22 /min Jignesh Saez MD Work Phone: [facility] 07-15-2024 11:00-0400 SaO2% (BldA) [Mass fraction] 93 % Jignesh Saez MD Work Phone: [facility] 07-15-2024 11:00-0400 Systolic blood pressure 124 mm[Hg] Jignesh Saez MD Work Phone: [facility] 07-08-2024 12:03-0400 Heart rate 86 /min Trevin Sepulveda MD Work Phone: [facility] 07-08-2024 12:03-0400 Respiratory rate 20 /min Trevin Sepulveda MD Work Phone: [facility] 07-08-2024 12:00-0400 Body temperature 98.1 [degF] Trevin Sepulveda MD Work Phone: [facility] 07-08-2024 12:00-0400 Diastolic blood pressure 76 mm[Hg] Trevin Sepulveda MD Work Phone: [facility] 07-08-2024 12:00-0400 Inhaled oxygen flow rate 3 L/min Trevin Sepulveda MD Work Phone: [facility] 07-08-2024 12:00-0400 SaO2% (BldA) [Mass fraction] 92 % Trevin Sepulveda MD Work Phone: [facility] 07-08-2024 12:00-0400 Systolic blood pressure 143 mm[Hg] Trevin Sepulveda MD Work Phone: [facility] 07-08-2024 05:46-0400 Body weight 89.9 kg Trevin Sepulveda MD Work Phone: [facility] 07-06-2024 16:50-0400 Body height 167.64 cm Trevin Sepulveda MD Work Phone: [facility] 07-05-2024 02:30-0400 Diastolic blood pressure 92 mm[Hg] Trevin Sepulveda MD Work Phone: [facility] 07-05-2024 02:30-0400 Heart rate 82 /min Trevin Sepulveda MD Work Phone: [facility] 07-05-2024 02:30-0400 Inhaled oxygen flow rate 2 L/min Trevin Sepulveda MD Work Phone: [facility] 07-05-2024 02:30-0400 Respiratory rate 20 /min Trevin Sepulveda MD Work Phone: [facility] 07-05-2024 02:30-0400 SaO2% (BldA) [Mass fraction] 98 % Trevin Sepulveda MD Work Phone: [facility] 07-05-2024 02:30-0400 Systolic blood pressure 135 mm[Hg] Trevin Sepulveda MD Work Phone: [facility] 07-04-2024 23:52-0400 Body temperature 98 [degF] Trevin Sepulveda MD Work Phone: [facility] 07-04-2024 23:48-0400 Body height 167.64 cm Trevin Sepulveda MD Work Phone: [facility] 07-04-2024 23:48-0400 Body weight 84 kg Trevin Sepulveda MD Work Phone: [facility] 06-29-2024 14:32-0400 Body height 167.6 cm Jignesh Saez MD Work Phone: [facility] 06-29-2024 14:32-0400 Body mass index (BMI) [Ratio] 29.86 kg/m2 Jignesh Saez MD Work Phone: [facility] 06-29-2024 14:32-0400 Body temperature 96.6 [degF] Jignesh Saez MD Work Phone: [facility] 06-29-2024 14:32-0400 Body weight 83.92 kg Jignesh Saez MD Work Phone: [facility] 06-29-2024 14:32-0400 Diastolic blood pressure 58 mm[Hg] Jignesh Saez MD Work Phone: [facility] 06-29-2024 14:32-0400 Heart rate 85 /min Jignesh Saez MD Work Phone: [facility] 06-29-2024 14:32-0400 Respiratory rate 24 /min Jignesh Saez MD Work Phone: [facility] 06-29-2024 14:32-0400 SaO2% (BldA) [Mass fraction] 91 % Jignesh Saez MD Work Phone: [facility] 06-29-2024 14:32-0400 Systolic blood pressure 106 mm[Hg] Jignesh Saez MD Work Phone: [facility] 01-08-2024 11:05-0500 Body height 167.6 cm Jignesh Saez MD Work Phone: [facility] 01-08-2024 11:05-0500 Body mass index (BMI) [Ratio] 29.05 kg/m2 Jignesh Saez MD Work Phone: [facility] 01-08-2024 11:05-0500 Body temperature 96.01 [degF] Jignesh Saez MD Work Phone: [facility] 01-08-2024 11:05-0500 Body weight 81.65 kg Jignesh Saez MD Work Phone: [facility] 01-08-2024 11:05-0500 Diastolic blood pressure 74 mm[Hg] Jignesh Saez MD Work Phone: [facility] 01-08-2024 11:05-0500 Heart rate 82 /min Jignesh Saez MD Work Phone: [facility] 01-08-2024 11:05-0500 Respiratory rate 22 /min Jignesh Saez MD Work Phone: [facility] 01-08-2024 11:05-0500 SaO2% (BldA) [Mass fraction] 92 % Jignesh Saez MD Work Phone: [facility] 01-08-2024 11:05-0500 Systolic blood pressure 126 mm[Hg] Jignesh Saez MD Work Phone: [facility] 12-10-2023 14:06-0400 Body height 167.6 cm Jignesh Saez MD Work Phone: [facility] 12-10-2023 14:06-0400 Body mass index (BMI) [Ratio] 28.08 kg/m2 Jignesh Saez MD Work Phone: [facility] 12-10-2023 14:06-0400 Body temperature 95.7 [degF] Jignesh Saez MD Work Phone: [facility] 12-10-2023 14:06-0400 Body weight 78.93 kg Jignesh Saez MD Work Phone: [facility] 12-10-2023 14:06-0400 Diastolic blood pressure 66 mm[Hg] Jignesh Saez MD Work Phone: [facility] 12-10-2023 14:06-0400 Heart rate 31 /min Jignesh Saez MD Work Phone: [facility] 12-10-2023 14:06-0400 Respiratory rate 22 /min Jignesh Saez MD Work Phone: [facility] 12-10-2023 14:06-0400 SaO2% (BldA) [Mass fraction] 93 % Jignesh Saez MD Work Phone: [facility] 12-10-2023 14:06-0400 Systolic blood pressure 110 mm[Hg] Jignesh Saez MD Work Phone: [facility] 04-11-2023 13:13-0500 Body height 167.6 cm Jignesh Saez MD Work Phone: [facility] 04-11-2023 13:13-0500 Body mass index (BMI) [Ratio] 29.7 kg/m2 Jignesh Saez MD Work Phone: [facility] 04-11-2023 13:13-0500 Body temperature 97.3 [degF] Jignesh Saez MD Work Phone: [facility] 04-11-2023 13:13-0500 Body weight 83.46 kg Jignesh Saez MD Work Phone: [facility] 04-11-2023 13:13-0500 Diastolic blood pressure 70 mm[Hg] Jignesh Saez MD Work Phone: [facility] 04-11-2023 13:13-0500 Heart rate 80 /min Jignesh Saez MD Work Phone: [facility] 04-11-2023 13:13-0500 SaO2% (BldA) [Mass fraction] 95 % Jignesh Saez MD Work Phone: [facility] 04-11-2023 13:13-0500 Systolic blood pressure 130 mm[Hg] Jignesh Saez MD Work Phone: [facility] 05-13-2022 15:30-0400 Body height 165.74 cm Rivka Reyez Other [facility] Other 05-13-2022 15:30-0400 Body mass index (BMI) [Ratio] 30.45 kg/m2 Rivka Reyez Other [facility] Other 05-13-2022 15:30-0400 Body temperature 98.9 [degF] Rivka Reyez Other [facility] Other 05-13-2022 15:30-0400 Body weight 83.64 kg Rivka Reyez Other [facility] Other 05-13-2022 15:30-0400 Diastolic blood pressure 69 mm[Hg] Rivka Reyez Other [facility] Other 05-13-2022 15:30-0400 SaO2% (BldA) [Mass fraction] 93 % Rivka Reyez Other [facility] Other 05-13-2022 15:30-0400 Systolic blood pressure 116 mm[Hg] Rivka Reyez Other [facility] Other Encounters Encounter Date Encounter Type Care Provider Facility Start: 10-21-2024 End: 10-21-2024 ambulatory [facility] Start: 10-21-2024 End: 10-21-2024 Office outpatient new 45 minutes Francesca Munson DO Work Phone: [facility] Comment on above: Chest pain, unspecif ied type (Primary Dx); Bilateral upper abdominal pain; Left lower quadrant abdominal pain; Asymptomatic cholelithiasis Start: 10-20-2024 End: 10-20-2024 Orders Only Not In System Ref Prov [facility] Start: 10-13-2024 End: 10-13-2024 Bamboo flowsheet Jignesh Saez MD Work Phone: [facility] Start: 10-13-2024 End: 10-13-2024 Bamboo flowsheet Jignesh Saez MD Work Phone: [facility] Start: 10-13-2024 End: 10-13-2024 Office outpatient visit 25 minutes Jignesh Saez MD Work Phone: [facility] Comment on above: Lower extremity osmin a (Primary Dx); Calculus of gallbladder without cholecystitis without obstruction; Abdominal pain, generalized; Essential hypertension, benign ; Nonalcoholic fatty liver Start: 10-13-2024 End: 10-13-2024 ambulatory JIGNESH SAEZ Not Available Start: 09-21-2024 End: 09-21-2024 Clinisync Result Encounter Jignesh Saez MD Work Phone: [facility] External Department Unsolicited Start: 09-21-2024 End: 09-21-2024 Clinisync Result Encounter Jignesh Saez MD Work Phone: [facility] Unsolicited Start: 09-10-2024 End: 09-10-2024 Bamboo flowsheet Jignesh Saez MD Work Phone: [facility] Start: 09-10-2024 End: 09-10-2024 Bamboo flowsheet Jignesh Saez MD Work Phone: [facility] Start: 09-10-2024 End: 09-10-2024 Office outpatient visit 25 minutes Jignesh Saez MD Work Phone: [facility] Comment on above: Lower extremity osmin a (Primary Dx); SOB (shortness of breath); Abdominal pain, generalized; Essential hypertension, benign ; Encounter for long-term (current) use of medications Start: 09-10-2024 End: 09-10-2024 ambulatory JINGESH SAEZ Not Available Start: 07-28-2024 End: 07-28-2024 Clinisync Result Encounter Jignesh Saez MD Work Phone: [facility] Unsolicited Start: 07-28-2024 End: 07-28-2024 Clinisync Result Encounter Jignesh Saez MD Work Phone: [facility] Unsolicited Start: 07-15-2024 End: 07-15-2024 Bamboo flowsheet Jignesh Seaz MD Work Phone: [facility] Start: 07-15-2024 End: 07-15-2024 Bamboo flowsheet Jignesh Saez MD Work Phone: [facility] Start: 07-15-2024 End: 07-15-2024 Transitional care manage srvc 7 day discharge Jignesh Saez MD Work Phone: [facility] Comment on above: Chronic obstructive pulmonary disease, unspecified COPD type (CMS/HCC) (Primary Dx); Acute hypoxic respiratory failure (CMS/HCC) Start: 07-15-2024 End: 07-15-2024 ambulatory JIGNESH SAEZ Not Available Start: 07-05-2024 End: 07-08-2024 Evaluation and management of inpatient Trevin Sepulveda MD Work Phone: [facility] [place] [facility] Work Phone: Start: 06-29-2024 End: 06-29-2024 Office outpatient visit 15 minutes Jignesh Saez MD Work Phone: [facility] Comment on above: Chronic obstructive pulmonary disease with acute exacerbation (CMS/HCC) (Primary Dx) Start: 06-29-2024 End: 06-29-2024 ambulatory JIGNESH SAEZ Not Available Start: 06-29-2024 End: 06-29-2024 Bamboo flowsheet Jignesh Saez MD Work Phone: [facility] Start: 06-29-2024 End: 06-29-2024 Bamboo flowsheet Jignesh Saez MD Work Phone: [...] 25.0-29.9) Start: 01-08-2024 End: 01-08-2024 ambulatory JIGNESH SAEZ Not Available Start: 01-07-2024 End: 01-07-2024 [...] Start: 10-09-2023 End: 10-09-2023 ambulatory BRIEN WESTBROOK Facility:[facility] Start: 10-09-2023 End: 10-09-2023 Office outpatient new 45 minutes Gideon Ruelas MD Work Phone: Ophthalmology Comment on above: Ptosis of both eyeli ds (Primary Dx) Start: 04-11-2023 Bamboo flowsheet Jignesh Saez MD [...] Obesity (BMI 30-39.9); Lower extremity edema Start: 05-13-2022 End: 05-13-2022 ambulatory Rivka Reyez Other [facility] Other Start: 05-13-2022 Office outpatient ne w 20 minutes Rivka Reyez [facility] Start: 04-24-2022 End: 04-25-[address] JIGNESH SAEZ Facility:[facility] Start: 09-27-2021 End: 09-27-[address] JIGNESH SAEZ Facility:[facility] Start: 07-17-2020 End: 07-18-2020 ambulatory UNKNOWN PROVIDER Facility:[facility] Start: 04-19-2017 End: 04-20-2017 Ambulatory DEFAULT PHYSICIAN Facility:[facility] Procedures Date Procedure Procedure Detail Performing Clinician Start: 09-21-2024 MULTIPLE LABS Not In Sy stem Ref Prov Start: 09-21-2024 US RIGHT UPPER QUADRANT Jignesh Saez MD Work Phone: Start: 07-28-2024 ALL BASIC METABOLIC PANEL Jignesh Saez MD Work Phone: Start: 07-28-2024 ALL CBC WITH AUTO DIFF Jignesh Saez MD Work Phone: Start: 07-28-2024 ALL LIPID PROFILE (FASTING) Jignesh Saez MD Work Phone: Start: 07-28-2024 ALL THYROID STIM HORMONE Jignesh Saez MD Work Phone: Start: 07-28-2024 [facility] LIVER PANEL Jignesh melendrez MD Work Phone: Start: 07-07-2024 Respiratory Panel (PCR) Trevin Sepulveda MD Work Phone: Start: 07-05-2024 Aerobic microbial culture Trevin Sepulveda MD Work Phone: Start: 07-05-2024 Gram stain microscopy Yue Sepulveda MD Work Phone: Start: 07-05-2024 CT of thorax with contrast Trevin Sepulveda MD Work Phone: Start: 07-05-2024 Plain chest X-ray Annette Sepulveda MD Work Phone: Start: 07-04-2024 Viral nucleic acid assay Trevin Sepulveda MD Work Phone: Start: 11-25-2023 ALL CBC WITH AUTO DIFF Generic External Data Provider Start: 11-20-2023 ALL BASIC METABOLIC PANEL Generic External Data Provider Start: 11-20-2023 ALL CBC WITH AUTO DIFF Generic External Data Provider Start: 10-09-2023 End: 10-09-2023 Xtrnl ocular photog w/i&r docct medical progre Gideon Ruelas MD Work Phone: Start: 02-28-2023 Mammography Jignesh nowak MD Work Phone: Start: 09-07-2020 Colonoscopy Not Ref Pr ov Start: 10-09-2018 Colonoscopy Jignesh nowak MD Work Phone: Plan of Treatment Date Care Activity Detail Author Start: 10-09-2028 Screening for malign ant neoplasm of colon [facility] Start: 10-21-2025 Adult BMI Screening Adult BMI Screen ing [facility] Start: 10-21-2025 Tobacco Screening Tobacco Screening [facility] Start: 01-12-2025 End: 01-12-2025 Patient encounter procedure 01/12/2025 10:00 AM EST Office Visit [facility] [address] [place] [phone] Jignesh Saez MD [address] [place] [phone] [facility] Start: 01-07-2025 Medicare Annual Well ness (AWV) Medicare Annual Wellness (AWV) [facility] Start: 11-02-2024 Influenza vaccination [facility] Start: 10-21-2024 End: 10-21-2025 CT Abdomen and Pelvis W contrast IV CT abdomen and pelvis with contrast Imaging Routine Bilateral upper abdominal pain Left lower quadrant abdominal pain Expected: 10/21/2024, Expires: 10/21/2025 [facility] Comment on above: Expected: 10/21/2024 , Expires: 10/21/2025 Start: 10-21-2024 End: 10-21-2025 CT Chest limited W contrast IV CT chest with contrast Imaging Routine Chest pain, unspecified type Expected: 10/21/2024, Expires: 10/21/2025 [employer] Work Phone: Comment on above: Expected: 10/21/2024 , Expires: 10/21/2025 Start: 10-21-2024 End: 10-21-2025 NM Biliary ducts and Gallbladder Views for patency of biliary structures and ejection fraction W sincalide and W radionuclide IV NM hepatobiliary system imaging with pharmacologic agent Imaging Routine Asymptomatic cholelithiasis Expected: 10/21/2024, Expires: 10/21/2025 [facility] Comment on above: Expected: 10/21/2024 , Expires: 10/21/2025 Start: 10-21-2024 End: 10-21-2024 Patient encounter procedure 10/21/2024 10:00 AM EDT Office Visit [facility] Surgery [address] [place] [phone] Francesca Munson DO [address] [place], [place] [id number] [facility] Start: 10-13-2024 End: 10-13-2025 US.doppler Lower extremity vein - left Vascular US lower extremity venous duplex left Imaging Routine Lower extremity edema Expected: 10/13/2024, Expires: 10/13/2025 [facility] Work Phone: Comment on above: Expected: 10/13/2024 , Expires: 10/13/2025 Start: 10-13-2024 End: 10-13-2025 Vascular US lower extremity venous insufficiency left Vascular US lower extremity venous insufficiency left Imaging Routine Lower extremity edema Expected: 10/13/2024, Expires: 10/13/2025 [facility] Comment on above: Expected: 10/13/2024 , Expires: 10/13/2025 Start: 10-13-2024 End: 10-13-2024 Patient encounter procedure 10/13/2024 10:00 AM EDT Office Visit [facility] [address] [place] [phone] Jignesh Saez MD [address] [place] [phone] Arrived [facility] Comment on above: Arrived Start: 09-29-2024 End: 09-29-2024 Patient encounter procedure 09/29/2024 1:30 PM EDT Office Visit [facility] [address] [place] [address] Jignesh Saez MD [address] [place] [phone] [facility] Start: 09-28-2024 End: 09-28-2024 Patient encounter procedure 09/28/2024 1:30 PM EDT [facility] [address] [place] [phone] Jignesh Saez MD [address] [place] [phone] [facility] Start: 09-10-2024 End: 09-10-2025 Basic metabolic 1998 panel - Serum or Plasma Basic metabolic panel Lab Routine Essential hypertension, benign Expected: 09/10/2024 (Approximate), Expires: 09/10/2025 [facility] Comment on above: Expected: 09/10/2024 (Approximate), Expires: 09/10/2025 Start: 09-10-2024 End: 09-10-2025 CBC W Auto Differential panel - Blood CBC and differential Lab Routine Encounter for long-term (current) use of medications Expected: 09/10/2024 (Approximate), Expires: 09/10/2025 [facility] Comment on above: Expected: 09/10/2024 (Approximate), Expires: 09/10/2025 Start: 09-10-2024 End: 09-10-2026 Echocardiogram 2D complete Echocardiogram 2D complete Echocardiography Routine Lower extremity edema SOB (shortness of breath) Expected: 09/10/2024 (Approximate), Expires: 09/10/2026 [facility] Work Phone: Comment on above: Expected: 09/10/2024 (Approximate), Expires: 09/10/2026 Start: 09-10-2024 End: 09-10-2025 Hepatic function 2000 panel - Serum or Plasma Hepatic function panel Lab Routine Encounter for long-term (current) use of medications Expected: 09/10/2024 (Approximate), Expires: 09/10/2025 [facility] Comment on above: Expected: 09/10/2024 (Approximate), Expires: 09/10/2025 Start: 09-10-2024 End: 09-10-2025 US Abdomen limited US RUQ Imaging Routine Abdominal pain, generalized Expected: 09/10/2024, Expires: 09/10/2025 [facility] Comment on above: Expected: 09/10/2024 , Expires: 09/10/2025 Start: 07-15-2024 End: 07-15-2024 Patient encounter procedure 07/15/2024 11:00 AM EDT Office Visit [facility] [address] [place] [id number] Jignesh Saez MD [address] [place] [address] Arrived [facility] Comment on above: Arrived Start: 07-08-2024 [facility] Start: 07-05-2024 End: 07-05-2024 [facility] Start: 07-05-2024 Hospital admission [facility] Start: 07-05-2024 Microbial culture of sputum [facility] Start: 07-05-2024 CT Chest W contrast IV [facility] Start: 07-05-2024 CT of thorax with contrast CT chest w con [facility] Start: 07-05-2024 Plain chest X-ray XR chest 1V portab le [facility] Start: 07-05-2024 XR Chest Single view [facility] Start: 06-29-2024 End: 06-29-2024 Patient encounter procedure 06/29/2024 2:15 PM EDT Office Visit [facility] [address] [place] [phone] Jignesh Saez MD [address] [place] [phone] Arrived [facility] Comment on above: Arrived Start: 02-29-2024 Screening for malign ant neoplasm of breast Mammogram [facility] Start: 02-20-2024 End: 02-20-2024 Patient encounter procedure 02/20/2024 10:00 AM EST Office Visit [facility] [address] [place] [address] Jignesh Saez MD [address] [place] [address] [facility] Start: 01-08-2024 End: 01-07-2025 Basic metabolic 1998 panel - Serum or Plasma Basic metabolic panel Lab Routine Essential hypertension, benign (CMS/HCC) Expected: 01/08/2024 (Approximate), Expires: 01/07/2025 [facility] Comment on above: Expected: 01/08/2024 (Approximate), Expires: 01/07/2025 Start: 01-08-2024 End: 01-07-2025 CBC W Auto Differential panel - Blood CBC and differential Lab Routine Encounter for long-term (current) use of medications Expected: 01/08/2024 (Approximate), Expires: 01/07/2025 [facility] Comment on above: Expected: 01/08/2024 (Approximate), Expires: 01/07/2025 Start: 01-08-2024 End: 01-07-2025 Hemoglobin A1c/Hemoglobin.total in Blood Hemoglobin A1c Lab Routine Prediabetes Expected: 01/08/2024 (Approximate), Expires: 01/07/2025 [facility] Work Phone: Comment on above: Expected: 01/08/2024 (Approximate), Expires: 01/07/2025 Start: 01-08-2024 End: 01-07-2025 Hepatic function 2000 panel - Serum or Plasma Hepatic function panel Lab Routine Encounter for long-term (current) use of medications Expected: 01/08/2024 (Approximate), Expires: 01/07/2025 [facility] Comment on above: Expected: 01/08/2024 (Approximate), Expires: 01/07/2025 Start: 01-08-2024 End: 01-07-2025 Lipid 1996 panel - Serum or Plasma Lipid panel Lab Routine Dyslipidemia (CMS/HCC) Expected: 01/08/2024 (Approximate), Expires: 01/07/2025 [facility] Comment on above: Expected: 01/08/2024 (Approximate), Expires: 01/07/2025 Start: 01-08-2024 End: 01-07-2025 Thyrotropin [Units/volume] in Serum or Plasma TSH Lab Routine Prediabetes Overweight (BMI 25.0-29.9) Expected: 01/08/2024 (Approximate), Expires: 01/07/2025 [facility] Comment on above: Expected: 01/08/2024 (Approximate), Expires: 01/07/2025 Start: 01-08-2024 End: 01-08-2024 Patient encounter procedure [facility] Comment on above: Arrived Start: 12-10-2023 End: 12-09-2024 DXA Skeletal system Views for bone density DEXA bone density Imaging Routine Postmenopausal Expected: 12/10/2023, Expires: 12/09/2024 [facility] Work Phone: Comment on above: Expected: 12/10/2023 , Expires: 12/09/2024 Start: 12-10-2023 End: 12-10-2023 Patient encounter procedure [facility] Comment on above: Arrived Start: 11-03-2023 COVID-19 Vaccine ( season) COVID-19 Vaccine ( season) [facility] Start: 11-03-2023 Influenza vaccination Influenza Vacc ine (#1) [facility] Start: 09-08-2023 Screening for malign ant neoplasm of colon Colonoscopy [facility] Start: 05-07-2023 End: 05-07-2023 Patient encounter procedure 05/07/2023 9:15 AM EST Office Visit [facility] [address] [place] [phone] Jignesh Saez MD [address] [place] [phone] [facility] Start: 03-04-2023 Advance Directive Discussion Advance Directive Discussion [facility] Start: 11-02-2022 Covid-19 Vaccine ( season) Covid-19 Vaccine ( season) [facility] Start: 11-02-2022 Influenza vaccination Influenza Vacc ine (#1) [facility] Start: 05-05-2019 Fall Risk Screening Fall Risk Screen ing [facility] Start: 05-05-2019 Pneumococcal Vaccine : 65+ (1 of 1 - PCV) Pneumococcal Vaccine: 65+ (1 of 1 - PCV) [facility] Start: 05-05-2019 Screening for osteoporosis Bone Density Screening [facility] Start: 2014 RSV Vaccine (1 - 1-d ose 60+ series) RSV Vaccine (1 - 1-dose 60+ series) [facility] Start: 2004 Administration of varicella zoster vaccine Zoster (Shingles) Vaccine (1 of 2) [facility] Start: 2004 Shingrix Vaccine (1 of 2) Shingrix Vaccine (1 of 2) [facility] Start: 05-05-1999 Diabetes Screening Diabetes Screenin g [facility] Start: 05-05-1999 Lipid panel Lipid Screening [facility] Start: 05-05-1999 Screening for malign ant neoplasm of colon [facility] Start: 1994 Screening for malign ant neoplasm of breast Mammogram Screening [facility] Start: 1973 DTaP,Tdap and Td Vaccines (1 - Tdap) DTaP,Tdap and Td Vaccines (1 - Tdap) [facility] Start: 1973 Pneumococcal Vaccine : 65+ Years (1 of 2 - PCV) Pneumococcal Vaccine: 65+ Years (1 of 2 - PCV) [facility] Start: 1973 Urine microalbumin profile DTaP,Tdap,Td Vaccine (1 - Tdap) [facility] Start: 1972 Adult BMI Follow Up Plan Adult BMI F ollow Up Plan [facility] Start: 1972 Adult BMI Screening Adult BMI Screen ing [facility] Start: 1972 Anxiety Screening Anxiety Screening [facility] Start: 1972 Depression Screening Depression Scre ing [facility] Start: 1972 Hepatitis C screening Hepatitis C Sc reening [facility] Start: 1966 Depression Screening Depression Scre [facility] Start: 1966 Tobacco Screening Tobacco Screening [facility] Start: 1960 Pneumococcal Vaccine : 65+ Years (1 - PCV) Pneumococcal Vaccine: 65+ Years (1 - PCV) [facility] Start: 1960 Pneumococcal Vaccine : 65+ Years (1 of 2 - PCV) Pneumococcal Vaccine: 65+ Years (1 of 2 - PCV) [facility] Start: 1954 Medicare Annual Well ness (AWV) Medicare Annual Wellness (AWV) [facility] Start: 1954 Screening for malign ant neoplasm of colon [facility] Albumin/Globulin ratio [facility] Anion gap measurement [facility] Basophils [#/volume] in Blood by Automated count [facility] Basophils/100 leukoc ytes in Blood by Automated count [facility] End: 10-21-2025 Creatinine includes GFR, serum Creatinine includes GFR, serum Lab Routine Chest pain, unspecified type Bilateral upper abdominal pain Left lower quadrant abdominal pain 1 Occurrences starting 10/21/2024 until 10/21/2025 [facility] Comment on above: 1 Occurrences starti ng 10/21/2024 until 10/21/2025 Eosinophils/100 leukocytes in Blood by Automated count [facility] Erythrocyte distribu tion width [Ratio] by Automated count [facility] Erythrocytes [#/volu me] in Blood [facility] Globulin [Mass/volum e] in Serum [facility] Hematocrit [Volume Fraction] of Blood [facility] Hemoglobin [Mass/vol ume] in Blood [facility] Leukocytes [#/volume ] corrected for nucleated erythrocytes in Blood by Automated coun [facility] Leukocytes [#/volume ] in Blood [facility] Lymphocytes [#/volum e] in Blood by Automated count [facility] Lymphocytes/100 leukocytes in Blood by Automated count [facility] MCH [Entitic mass] b y Automated count [facility] MCHC [Mass/volume] b y Automated count [facility] MCV [Entitic volume] by Automated count [facility] Monocytes [#/volume] in Blood by Automated count [facility] Monocytes/100 leukoc ytes in Blood by Automated count [facility] Neutrophils [#/volum e] in Blood by Automated count [facility] Neutrophils/100 leukocytes in Blood by Automated count [facility] Nucleated erythrocyt es [Presence] in Blood by Automated count [facility] Patient Education Azithromycin ( Systemic) Benzonatate Prednisone Know your Meds [facility] Work Phone: Patient referral [facility] Work Phone: Platelet mean volume [Entitic volume] in Blood by Automated count [facility] Platelets [#/volume] in Blood [facility] Payers Date Payer Category Payer Self-pay 2024 Medicare [place] [employer] [id number] 2024 Unknown [id number] 2023 Medicare [employer] MEDICAR E [employer] BY JO [id number] 2023-Present [address] [place] [id number] [id number] 2023 Medicare (Managed Care) [employer]ICARE [id number] 2023 Medicare [id number] 2019 Blue Cross Blue [facility] BCBS [id number] 2019 [facility] Managed Care - Other ANTHEM [id number] 2019 Unknown 2015 Unknown [id number] 1959 Blue Cross Blue [facility] [id number] 1959 Medicare [id number] 1954 Unknown [id number] [id number]. 2.732 1954 Unknown [id number] 2.16.840.1.273186.3.579. 2.593 1954 Unknown [id number] 2.16.840.1.379173.3.579. 2.593 1954 Unknown [id number] 2.16.840.1.181031.3.579. 2.1259 1954 Unknown [id number] 2.16.840.1.653146.3.579. 2.1259 1954 Unknown [id number] 2.16.840.1.428628.3.579. 2.1259 1954 Unknown [id number] 2.16.840.1.594935.3.579. 2.1259 1954 Unknown [id number] 2.16.840.1.976571.3.579. 2.1259 1954 Unknown [id number] 2.16.840.1.991659.3.579. 2.1259 1954 Unknown [id number] 2.16.840.1.680391.3.579. 2.1286 1954 Unknown [id number] 2.16.840.1.279270.3.579. 2.1286 Unknown [id number] [id number]. 2.531 Social History Date Type Detail Facility Unknown if ever smoked [facility] Other Start: 04-14-2020 End: 02-19-2023 Sex Assigned At [facility] Other Start: 02-19-2023 End: 10-21-2024 Tobacco smoking status DCIS Ex-smoker [facility] End: 06-09-2017 History of tobacco use Current smoker [facility] End: 06-09-2017 History of tobacco use Cigarette Smoker [facility] Start: 04-14-2020 End: 02-19-2023 Cigarettes smoked current (pack per day) - Reported 0.3 [facility] Start: 02-19-2023 End: 10-21-2024 Tobacco use and exposure Smokeless tobacco non-user [facility] Start: 1955 Sex Assigned At Not on file [facility] Start: 10-09-2023 End: 10-21-2024 Alcohol intake Current drinker of alcohol (finding) [facility] National Score (1-100), lower number is lower risk 80 [facility] Start: 10-09-2023 Alcohol Comment occasional [facility] Start: 10-07-2014 End: 07-05-2024 Sex Female (finding) [facility] Start: 1955 Sex Assigned At Female F [facility] Start: 07-07-2024 SDOH Follow up SDOH Follow up [facility] Work Phone: Start: 12-16-2020 Alcoholic beverage intake Current non-drinker of alcohol (finding) [facility] Start: 10-21-2024 Alcohol Comment [facility] Goals Date Patient Goal Desired Activity /State Functional Status Date Assessment Result Facility 07-08-2024 Functional status Patient at Baseline [facility] Work Phone: Mental Status Date Assessment Result Facility 07-08-2024 Cognitive function Cognitive Sta tus Patient at Baseline [facility] Work Phone: Clinical Notes 05-13-2022 to 10-21-2024 Francesca Munson DO - 10/21/2024 10:00 AM Lyndsey Saez MD - 10/13/2024 10:45 AM Lyndsey Saez MD - 10/13/2024 10:45 AM Lyndsey Saez MD - 10/13/2024 10:45 AM EDT Note Date & Type Note Facility 10-21-2024 History of Present illness Narrative Images from the original note were not included. [facility] [address] [facility] [phone] CONSULT NOTE CHIEF COMPLAINT Chief Complaint Patient presents with Cholelithiasis Calculus of gallbladder, abdominal pain, referred by Dr. Nadja Pabon Yeimy Ernandez is a 69 y.o. female accompanied by her mother with complaints of bilateral upper abdominal/lower chest pain which feels like grabbing for the last few months. She states that she has been coughing a lot lately iand her lungs fill up with fluid and when coughing it feels like she could throw up at times but most of the time it is phlegm. She stated that her primary care physician was to prescribe medication but she has not heard from them. I recommended that she follow up with her PCP. She describes the pain as sharp 7-10 at times. Denies any fevers alex-colored stools or jaundice. She had an ultrasound of the gallbladder performed at the [facility] on September 21, 2024 which showed fatty infiltration of the liver with cholelithiasis with mild dilatation of the common bile duct and no wall thickening of the gallbladder and negative Hooper sign. She can not remember when she last had a colonoscopy but it was done at [place]. She has a history of polyps in the past but the most recent colonoscopy which he can not remember the date of did not reveal any polyps. She denies any mouth melena [...] inhaler, Inhale 2 puffs every 6 (six) hours as needed for wheezing., Disp: , Rfl: albuterol [...] mouth in the morning., Disp: , Rfl: spironolactone (ALDACTONE) 25 mg tablet, Take 1 tablet (25 mg total) by mouth in the morning., Disp: , Rfl: BREO ELLIPTA 200-25 mcg/dose blister with device, INHALE 1 PUFF BY MOUTH EVERY DAY (Patient not taking: Reported on 10/21/2024), Disp: , Rfl: 11 cholecalciferol, vitamin D3, 2,000 units tablet, Take 1 tablet by mouth daily. (Patient not taking: Reported on 10/21/2024), Disp: , Rfl: ALLERGY No Known Allergies MEDICAL HISTORY Past Medical History: Diagnosis Date Asthma COPD (chronic obstructive pulmonary disease) ([facility]) GERD (gastroesophageal reflux disease) Hypertension SURGICAL HISTORY Past Surgical History: Procedure Laterality Date COLONOSCOPY COLONOSCOPY N/A 10/09/2018 Performed by Francesca Munson DO at [facility] LOCAL EXCISION SKIN TAG Right 10/09/2018 Performed by Francesca Munson DO at [facility] TUBAL LIGATION WRIST FRACTURE SURGERY Left 02/2024 [...] of breath, positive cough, positive COPD Gastrointestinal: Negative for abdominal pain, nausea, melena, hematochezia, weight loss, [...] patient/family/caregiver Referring and communicating with other health child care counselor - Francesca Munson DO 10/21/24 10:15 AM This note was created with the assistance of a speech recognition program. While intending to generate a timely document that accurately reflects the content of the visit, no guarantee can be provided that every grammatical or spelling mistake has been or will be identified or corrected. Thank you for your understanding. documented in this encounter [facility] 10-13-2024 History of Present illness Narrative Associated Problem(s): Nonalcoholic fatty liver Need to limit alcohol intake. Need to control cholesterol and BS. Associated Problem(s): Lower extremity edema Edema slightly improved with aldactone but remains and stop norvasc. Check US leg. Associated Problem(s): Essential hypertension, benign BP controlled but potential edema due to norvasc and stop. Monitor BP PRN. Discussed DASH diet. Associated Problem(s): Calculus of gallbladder without cholecystitis without obstruction Occasional pain and stones in gallbladder. Refer to surgeon for evaluation. Associated Problem(s): Abdominal pain, generalized Occasional pain and stones in gallbladder. Refer to surgeon for evaluation. Images from the original note were not included. Subjective Patient ID: Pepper Ernandez is a 69 y.o. female who presents [...] cholesterol and BS. documented in this encounter [facility] 09-10-2024 History of Present illness Narrative Associated Problem(s): Lower extremity edema Worsening edema and likely related to venous insufficiency. Add aldactone and continue lasix. Check echo and US RUQ. Check labs. If no improvement may need venous reflux studies and possible vascular. Associated Problem(s): Essential hypertension, benign BP controlled and monitor PRN. Associated Problem(s): Abdominal pain, generalized Check US RUQ Images from the original note were not included. Subjective Patient ID: Pepper Ernandez is a 69 y.o. female who presents [...] Orders US RUQ documented in this encounter [facility] 07-15-2024 History of Present illness Narrative Associated Problem(s): Acute hypoxic respiratory failure (CMS/HCC) Recent hypoxia and on oxygen but able to wean to room air. Monitor SpO2. Associated Problem(s): COPD (chronic obstructive pulmonary disease) (CMS/HCC) Recent exacerbation and hypoxia but improved. Continue advair and use albuterol PRN. Images from the original note were not included. Subjective Patient ID: Pepper Ernandez is a 69 y.o. female who presents for Follow-up ([facility] f/up copd). Hospital follow up from 07/05-07/08 [...] air. Monitor SpO2. documented in this encounter [facility] 07-08-2024 Progress note Note Date/Time July 07, 2024 10:04pm [facility] [address] [place] [address] Hospitalist Progress Note Signed Patient: Pepper Ernandez MR#: [id number] : 1955 Acct:[id number] Age/Sex: 69 / F Adm Date: 5 Loc: 3T Room: [address] [place] [address] Type: ADM IN Attending Dr: Eliu Schmitz MD Copies to: ~ Date of Service: 07/05/2024 Subjective Subjective Narrative: Patient seen and examined. Resting in bed, had removed O2 to go to bathroom anddid not replace, noted to have SpO2 88% on RA, O2 replaced and back up to 93% on2LNC. Had her demonstrate use of spirometry and flutter valve, encouraged frequent use. States she feels better than on admit, but still notable wheezing(not as bad) and less cough, did have small amount sputum will send to lab. Discussed smoking, she states does have some intermittently but it takes many days to go through a pack. Exam Physical Exam Vital Signs: Temp Pulse Resp BP Pulse Ox O2 Del Method O2 Flow Rate 98.0 F 86 20 126/77 93 L Nasal Cannula 2 07/05/24 11:22 07/05/24 11:22 07/05/24 11:22 07/05/24 11:22 07/05/24 11:22 07/05/24 11:22 07/05/24 11:22 Narrative: CONST- alert, in bed, elderly female CARD- RRR no abnormal heart tones PULM- dimin, wheeze end-exhalation, no rhonchi or cough, O2 2LNC ABD- S/NT, NABS, round/ obese EXTREM- no edema BLE, calves nontender Objective Lab Results 07/05/24 06:58 07/05/24 06:58 Microbiology Results Microbiology 07/04/24 00:00 Nasopharyngeal SARS-CoV-2, Influenza & RSV (PCR) - Final Meds Allergies and Active Meds Allergies No Known Allergies Allergy (Verified 07/04/24 22:11) Active Meds: Active Medications Generic Name Dose Route Start Last Admin Trade Name Freq PRN Reason Stop Dose Admin Acetaminophen 650 mg 07/05/24 02:05 Acetaminophen 325 Mg Tablet PO 07/05/25 02:04 Q6HR PRN Pain Scale 1 - 3 or fever Albuterol 2.5 mg 07/05/24 02:05 Albuterol Neb 2.5 Mg/3 Ml Vial.Neb INHALATION 07/05/25 02:04 Q3H PRN Cough/Wheeze Albuterol/Ipratropium 3 ml 07/05/24 08:00 07/05/24 09:12 Ipratropium/Albuterol 0.5-3 Mg 3 Ml Ampul.Neb INHALATION 07/05/25 07:59 3 ml QID.RESP JOSTIN Administration Amlodipine Besylate 5 mg 07/05/24 09:00 Amlodipine 5 Mg Tablet PO 07/05/25 08:59 DAILY JOSTIN Benzonatate 200 mg 07/05/24 02:07 07/05/24 04:02 Benzonatate 100 Mg Capsule PO 07/05/25 02:06 200 mg TID PRN Administration Cough Budesonide 0.5 mg 07/05/24 09:00 07/05/24 09:12 Budesonide 0.5 Mg/2 Ml Ampul.Neb INHALATION 07/05/25 08:59 0.5 mg BID JOSTIN Administration Enoxaparin Sodium 40 mg 07/05/24 10:00 07/05/24 10:40 Enoxaparin 40 Mg/0.4 Ml Syringe SUBCUT 07/05/25 09:59 Not Given DAILY@10 JOSTIN Guaifenesin 1,200 mg 07/05/24 09:00 07/05/24 08:06 Guaifenesin 600 Mg Tab.Er.12h PO 07/05/25 08:59 1,200 mg BID JOSTIN Administration Azithromycin 500 mg in 250 mls @ 250 mls/hr 07/05/24 04:00 07/05/24 03:53 Zithromax IV 250 mls/hr Q24H JOSTIN Administration Methylprednisolone Sodium Succinate 40 mg 07/05/24 09:00 07/05/24 08:06 Methylprednisolone Sod Succ/Pf 40 Mg/Ml (1ml) Vial IV-PUSH 07/05/25 08:59 40 mg Q12H JOSTIN Administration Morphine Sulfate 2 mg 07/05/24 02:05 Morphine Sulfate 2 Mg/Ml Vial IV-PUSH Q4H PRN Pain Scale 8 - 10 Pantoprazole Sodium 40 mg 07/05/24 09:00 07/05/24 08:06 Pantoprazole 40 Mg Tablet. PO 07/05/25 08:59 40 mg DAILY JOSTIN Administration Prochlorperazine Edisylate 5 mg 07/05/24 02:05 Prochlorperazine Edisylate 10 Mg/2 Ml Vial IV-PUSH 07/05/25 02:04 Q4H PRN Nausea And Vomiting Sodium Chloride 0 ml 07/04/24 22:11 07/05/24 01:22 Sodium Chloride 0.9 % 10 Ml Syringe IV-PUSH 07/04/25 22:10 10 ml PRN PRN Administration Flush A&P - Hospitalist Assessment/Plan (1) Acute hypoxic respiratory failure: (2) COPD exacerbation: (3) Hypertension: (4) GERD (gastroesophageal reflux disease): Plan Acute Exacerbation COPD Acute hypoxic respiratory failure d/t AECOPD Tobacco use - afebrile, no leukocytosis. Has been on Levaquin and PO steroid 5days prior toadmit - troponin leak likely demand ischemia d/t hypoxia - CXR - nonacute - CT chest-minimal bibasilar atelectasis or scarring adjacent to hernia, negative for acute pleuroparenchymal disease, moderate to large paraesophageal hiatal hernia - Respiratory panel negative - DuoNebs, azithromycin, IV methylprednisone 40 mg twice daily, inhaled budesonide, hypertonic saline nebs, Mucinex, spirometry and Pep therapy, benzonatate - Sputum culture pending - DVT prophylaxis enoxaparin - Smoking cessation education Chronic conditions Hypertension-amlodipine GERD/hiatal hernia-pantoprazole Documented By: Linda Antonio APRN 06/26 1128 Signed By: <Electronically signed by EM Antonio> 07/05/24 1437 <Electronically signed by Eliu Schmitz MD> 07/07/24 [address] [facility] Work Phone: 1(479) 833-505805-07-2025 Progress note Author Linda Antonio [facility] Note Date/Time July 07, 2024 10:04p m [facility] [address] [place] [address] Hospitalist Progress Note Signed Patient: Pepper Ernandez MR#: [id number] : 1955 Acct:[id number] Age/Sex: 69 / F Adm Date: 5 Loc: Room: [address] [place] [address] Type: ADM IN Attending Dr: Eliu Schmitz MD Copies to: ~ Date of Service: 07/06/2024 Subjective Subjective Narrative: Seen and examined. She is resting in bed. She states she got up to the bathroom without her oxygen, on return trip she stated she though she was goingto . Became very dyspneic and was placed on oxygen, saturation she reports 83% at that time. She does not wear oxygen at home. She states cough improved from admission but still present, still nonproductive and tight. Is using PAP therapy and spirometry. Good intake reported, no abdominal complaints. Exam Physical Exam Vital Signs: Temp Pulse Resp BP Pulse Ox O2 Del Method O2 Flow Rate 97.5 F L 86 17 136/82 93 L Nasal Cannula 2 07/06/24 09:54 07/06/24 09:54 07/06/24 09:54 07/06/24 09:54 07/06/24 09:54 07/06/24 09:54 07/06/24 09:54 Narrative: CONST- alert, in bed, elderly female CARD- RRR no abnormal heart tones PULM- dimin, wheeze end-exhalation, no rhonchi, O2 2LNC, tight cough ABD- S/NT, NABS, round/ obese EXTREM- no edema BLE, calves nontender Objective Lab Results 07/06/24 05:23 07/06/24 05:23 Microbiology Results Microbiology 07/05/24 11:25 Sputum - Expectorated Aerobic Culture - Preliminary Moderate Normal Respiratory Lilia 1 Day 07/05/24 11:25 Sputum - Expectorated Gram Stain - Final Meds Allergies and Active Meds Allergies No Known Allergies Allergy (Verified 07/04/24 22:11) Active Meds: Active Medications Generic Name Dose Route Start Last Admin Trade Name Freq PRN Reason Stop Dose Admin Acetaminophen 650 mg 07/05/24 02:05 07/05/24 20:56 Acetaminophen 325 Mg Tablet PO 07/05/25 02:04 650 mg Q6HR PRN Administration Pain Scale 1 - 3 or fever Albuterol 2.5 mg 07/05/24 02:05 Albuterol Neb 2.5 Mg/3 Ml Vial.Neb INHALATION 07/05/25 02:04 Q3H PRN Cough/Wheeze Albuterol/Ipratropium 3 ml 07/05/24 08:00 07/06/24 09:01 Ipratropium/Albuterol 0.5-3 Mg 3 Ml Ampul.Neb INHALATION 07/05/25 07:59 3 ml QID.RESP JOSTIN Administration Amlodipine Besylate 10 mg 07/05/24 14:00 07/06/24 09:56 Amlodipine 10 Mg Tablet PO 07/05/25 13:59 10 mg DAILY JOSTIN Administration Benzonatate 200 mg 07/05/24 02:07 07/05/24 04:02 Benzonatate 100 Mg Capsule PO 07/05/25 02:06 200 mg TID PRN Administration Cough Budesonide 0.5 mg 07/05/24 09:00 07/06/24 09:00 Budesonide 0.5 Mg/2 Ml Ampul.Neb INHALATION 07/05/25 08:59 0.5 mg BID JOSTIN Administration Enoxaparin Sodium 40 mg 07/05/24 10:00 07/06/24 09:56 Enoxaparin 40 Mg/0.4 Ml Syringe SUBCUT 07/05/25 09:59 Not Given DAILY@10 JOSTIN Guaifenesin 1,200 mg 07/05/24 09:00 07/06/24 09:56 Guaifenesin 600 Mg Tab.Er.12h PO 07/05/25 08:59 1,200 mg BID JOSTIN Administration Azithromycin 500 mg in 250 mls @ 250 mls/hr 07/05/24 04:00 07/06/24 04:10 Zithromax IV 250 mls/hr Q24H JOSTIN Administration Methylprednisolone Sodium Succinate 40 mg 07/05/24 09:00 07/06/24 09:56 Methylprednisolone Sod Succ/Pf 40 Mg/Ml (1ml) Vial IV-PUSH 07/05/25 08:59 40 mg Q12H JOSTIN Administration Morphine Sulfate 2 mg 07/05/24 02:05 Morphine Sulfate 2 Mg/Ml Vial IV-PUSH Q4H PRN Pain Scale 8 - 10 Pantoprazole Sodium 40 mg 07/05/24 09:00 07/06/24 09:56 Pantoprazole 40 Mg Tablet. PO 07/05/25 08:59 40 mg DAILY JOSTIN Administration Prochlorperazine Edisylate 5 mg 07/05/24 02:05 Prochlorperazine Edisylate 10 Mg/2 Ml Vial IV-PUSH 07/05/25 02:04 Q4H PRN Nausea And Vomiting Sodium Chloride 0 ml 07/04/24 22:11 07/05/24 01:22 Sodium Chloride 0.9 % 10 Ml Syringe IV-PUSH 07/04/25 22:10 10 ml PRN PRN Administration Flush A&P - Hospitalist Assessment/Plan (1) Acute hypoxic respiratory failure: (2) COPD exacerbation: (3) Hypertension: (4) GERD (gastroesophageal reflux disease): Plan Acute Exacerbation COPD Acute hypoxic respiratory failure d/t AECOPD Tobacco use - afebrile, no leukocytosis. Had been on Levaquin and PO steroid 5days prior toadmit - troponin leak likely demand ischemia d/t hypoxia - CXR - nonacute - CT chest-minimal bibasilar atelectasis or scarring adjacent to hernia, negative for acute pleuroparenchymal disease, moderate to large paraesophageal hiatal hernia - Respiratory panel negative - DuoNebs, azithromycin, IV methylprednisone 40 mg twice daily, inhaled budesonide, hypertonic saline nebs, Mucinex, spirometry and Pep therapy, benzonatate - Sputum culture pending - DVT prophylaxis enoxaparin - Smoking cessation education Chronic conditions Hypertension-amlodipine GERD/hiatal hernia-pantoprazole Documented By: Linda Antonio APRN 07/26 0945 Signed By: <Electronically signed by EM Antonio> 07/06/24 1404 <Electronically signed by Eliu Schmitz MD> 07/07/24 2633 [facility] Work Phone: 1(294) 103-643205-07-2025 Progress note Author Linda Antonio [facility] Note Date/Time July 07, 2024 10:03p m [facility] [address] [place] [address] Hospitalist Progress Note Signed Patient: Pepper Ernandez MR#: [id number] : 1955 Acct:[id number] Age/Sex: 69 / F Adm Date: 5 Loc: Room: [address] [place] [address] Type: ADM IN Attending Dr: Eliu Schmitz MD Copies to: ~ Date of Service: 07/07/2024 Subjective Subjective Narrative: Patient is seen and examined. She is up in the chair. States she was able to get up to the bathroom today much better than yesterday, asks about showering, is keeping her oxygen on now though she states overnight she must have inadvertently pulled it off and she woke up this morning in distress with low saturations. She continues with tight cough by her report that she feels is in the upper portion of her chest. Cough remains nonproductive. Since this may have component of bronchitis as well, will check full respiratory PCR Exam Physical Exam Vital Signs: Temp Pulse Resp BP Pulse Ox O2 Del Method O2 Flow Rate 98.1 F 94 20 131/82 95 Nasal Cannula 2 07/07/24 09:47 07/07/24 09:47 07/07/24 09:47 07/07/24 09:47 07/07/24 09:47 07/07/24 09:47 07/07/24 09:47 Narrative: CONST- alert, in chair, elderly female CARD- RRR no abnormal heart tones PULM- dimin, improved wheeze minimal but sounds tight today with anterior bronchovesicular sounds, no rhonchi, O2 2LNC, tight cough ABD- S/NT, NABS, round/ obese EXTREM- no edema BLE, calves nontender Objective Lab Results 07/06/24 05:23 07/06/24 05:23 Microbiology Results Microbiology 07/05/24 11:25 Sputum - Expectorated Aerobic Culture - Final 07/05/24 11:25 Sputum - Expectorated Gram Stain - Final Meds Allergies and Active Meds Allergies No Known Allergies Allergy (Verified 07/04/24 22:11) Active Meds: Active Medications Generic Name Dose Route Start Last Admin Trade Name Freq PRN Reason Stop Dose Admin Acetaminophen 650 mg 07/05/24 02:05 07/05/24 20:56 Acetaminophen 325 Mg Tablet PO 07/05/25 02:04 650 mg Q6HR PRN Administration Pain Scale 1 - 3 or fever Albuterol 2.5 mg 07/05/24 02:05 Albuterol Neb 2.5 Mg/3 Ml Vial.Neb INHALATION 07/05/25 02:04 Q3H PRN Cough/Wheeze Albuterol/Ipratropium 3 ml 07/05/24 08:00 07/07/24 08:40 Ipratropium/Albuterol 0.5-3 Mg 3 Ml Ampul.Neb INHALATION 07/05/25 07:59 3 ml QID.RESP JOSTIN Administration Amlodipine Besylate 10 mg 07/05/24 14:00 07/07/24 09:50 Amlodipine 10 Mg Tablet PO 07/05/25 13:59 10 mg DAILY JOSTIN Administration Benzonatate 200 mg 07/05/24 02:07 07/07/24 03:17 Benzonatate 100 Mg Capsule PO 07/05/25 02:06 200 mg TID PRN Administration Cough Budesonide 0.5 mg 07/05/24 09:00 07/07/24 08:40 Budesonide 0.5 Mg/2 Ml Ampul.Neb INHALATION 07/05/25 08:59 0.5 mg BID JOSTIN Administration Enoxaparin Sodium 40 mg 07/05/24 10:00 07/07/24 09:50 Enoxaparin 40 Mg/0.4 Ml Syringe SUBCUT 07/05/25 09:59 Not Given DAILY@10 JOSTIN Guaifenesin 1,200 mg 07/05/24 09:00 07/07/24 09:50 Guaifenesin 600 Mg Tab.Er.12h PO 07/05/25 08:59 1,200 mg BID JOSTIN Administration Azithromycin 500 mg in 250 mls @ 250 mls/hr 07/05/24 04:00 07/07/24 03:17 Zithromax IV 250 mls/hr Q24H JOSTIN Administration Methylprednisolone Sodium Succinate 40 mg 07/05/24 09:00 07/07/24 09:50 Methylprednisolone Sod Succ/Pf 40 Mg/Ml (1ml) Vial IV-PUSH 07/05/25 08:59 40 mg Q12H JOSTIN Administration Morphine Sulfate 2 mg 07/05/24 02:05 Morphine Sulfate 2 Mg/Ml Vial IV-PUSH Q4H PRN Pain Scale 8 - 10 Pantoprazole Sodium 40 mg 07/05/24 09:00 07/07/24 09:50 Pantoprazole 40 Mg Tablet. PO 07/05/25 08:59 40 mg DAILY JOSTIN Administration Prochlorperazine Edisylate 5 mg 07/05/24 02:05 Prochlorperazine Edisylate 10 Mg/2 Ml Vial IV-PUSH 07/05/25 02:04 Q4H PRN Nausea And Vomiting Sodium Chloride 0 ml 07/04/24 22:11 07/07/24 03:17 Sodium Chloride 0.9 % 10 Ml Syringe IV-PUSH 07/04/25 22:10 10 ml PRN PRN Administration Flush A&P - Hospitalist Assessment/Plan (1) Acute hypoxic respiratory failure: (2) COPD exacerbation: (3) Hypertension: (4) GERD (gastroesophageal reflux disease): Plan Acute Exacerbation COPD, Bronchitis Acute hypoxic respiratory failure d/t AECOPD Tobacco use - afebrile, no leukocytosis. Had been on Levaquin and PO steroid 5days prior toadmit - troponin leak likely demand ischemia d/t hypoxia - CXR - nonacute - CT chest-minimal bibasilar atelectasis or scarring adjacent to hernia, negative for acute pleuroparenchymal disease, moderate to large paraesophageal hiatal hernia - Triple Respiratory panel negative, will check full viral panel - DuoNebs, azithromycin, IV methylprednisone 40 mg decreased to daily, inhaled budesonide, hypertonic saline nebs, Mucinex, spirometry and Pep therapy, benzonatate. Plan oral steroid taper at discharge - Sputum culture negative - DVT prophylaxis enoxaparin - Smoking cessation education - will have therapy eval with ongoing hospitalization and weakness, anticipate discharge next 24-48hr, will need walk test at hi Chronic conditions Hypertension-amlodipine GERD/hiatal hernia-pantoprazole Documented By: Linda Antonio APRN 08/26 1030 Signed By: <Electronically signed by EM Antonio> 07/07/24 1430 <Electronically signed by Eliu Schmitz MD> 07/07/24 2203 [facility] Work Phone: 1(910) 196-666405-06-2025 [place] [address] Hospitalist Progress Note Signed Patient: Pepper Ernandez MR#: [id number] : 1955 Acct:[id number] Age/Sex: 69 / F Adm Date: 5 Loc: Room: [address] [place] [address] Type: ADM IN Attending Dr: Eliu Schmitz MD Copies to: ~ Date of Service: 07/05/2024 Subjective Subjective Narrative: Patient seen and examined. Resting in bed, had removed O2 to go to bathroom anddid not replace, noted to have SpO2 88% on RA, O2 replaced and back up to 93% on2LNC. Had her demonstrate use of spirometry and flutter valve, encouraged frequent use. States she feels better than on admit, but still notable wheezing(not as bad) and less cough, did have small amount sputum will send to lab. Discussed smoking, she states does have some intermittently but it takes many days to go through a pack. Exam Physical Exam Vital Signs: Temp Pulse Resp BP Pulse Ox O2 Del Method O2 Flow Rate 98.0 F 86 20 126/77 93 L Nasal Cannula 2 07/05/24 11:22 07/05/24 11:22 07/05/24 11:22 07/05/24 11:22 07/05/24 11:22 07/05/24 11:22 07/05/24 11:22 Narrative: CONST- alert, in bed, elderly female CARD- RRR no abnormal heart tones PULM- dimin, wheeze end-exhalation, no rhonchi or cough, O2 2LNC ABD- S/NT, NABS, round/ obese EXTREM- no edema BLE, calves nontender Objective Lab Results 07/05/24 06:58 07/05/24 06:58 Microbiology Results Microbiology 07/04/24 00:00 Nasopharyngeal SARS-CoV-2, Influenza & RSV (PCR) - Final Meds Allergies and Active Meds Allergies No Known Allergies Allergy (Verified 07/04/24 22:11) Active Meds: Active Medications Generic Name Dose Route Start Last Admin Trade Name Freq PRN Reason Stop Dose Admin Acetaminophen 650 mg 07/05/24 02:05 Acetaminophen 325 Mg Tablet PO 07/05/25 02:04 Q6HR PRN Pain Scale 1 - 3 or fever Albuterol 2.5 mg 07/05/24 02:05 Albuterol Neb 2.5 Mg/3 Ml Vial.Neb INHALATION 07/05/25 02:04 Q3H PRN Cough/Wheeze Albuterol/Ipratropium 3 ml 07/05/24 08:00 07/05/24 09:12 Ipratropium/Albuterol 0.5-3 Mg 3 Ml Ampul.Neb INHALATION 07/05/25 07:59 3 ml QID.RESP JOSTIN Administration Amlodipine Besylate 5 mg 07/05/24 09:00 Amlodipine 5 Mg Tablet PO 07/05/25 08:59 DAILY JOSTIN Benzonatate 200 mg 07/05/24 02:07 07/05/24 04:02 Benzonatate 100 Mg Capsule PO 07/05/25 02:06 200 mg TID PRN Administration Cough Budesonide 0.5 mg 07/05/24 09:00 07/05/24 09:12 Budesonide 0.5 Mg/2 Ml Ampul.Neb INHALATION 07/05/25 08:59 0.5 mg BID JOSTIN Administration Enoxaparin Sodium 40 mg 07/05/24 10:00 07/05/24 10:40 Enoxaparin 40 Mg/0.4 Ml Syringe SUBCUT 07/05/25 09:59 Not Given DAILY@10 JOSTIN Guaifenesin 1,200 mg 07/05/24 09:00 07/05/24 08:06 Guaifenesin 600 Mg Tab.Er.12h PO 07/05/25 08:59 1,200 mg BID JOSTIN Administration Azithromycin 500 mg in 250 mls @ 250 mls/hr 07/05/24 04:00 07/05/24 03:53 Zithromax IV 250 mls/hr Q24H JOSTIN Administration Methylprednisolone Sodium Succinate 40 mg 07/05/24 09:00 07/05/24 08:06 Methylprednisolone Sod Succ/Pf 40 Mg/Ml (1ml) Vial IV-PUSH 07/05/25 08:59 40 mg Q12H JOSTIN Administration Morphine Sulfate 2 mg 07/05/24 02:05 Morphine Sulfate 2 Mg/Ml Vial IV-PUSH Q4H PRN Pain Scale 8 - 10 Pantoprazole Sodium 40 mg 07/05/24 09:00 07/05/24 08:06 Pantoprazole 40 Mg Tablet. PO 07/05/25 08:59 40 mg DAILY JOSTIN Administration Prochlorperazine Edisylate 5 mg 07/05/24 02:05 Prochlorperazine Edisylate 10 Mg/2 Ml Vial IV-PUSH 07/05/25 02:04 Q4H PRN Nausea And Vomiting Sodium Chloride 0 ml 07/04/24 22:11 07/05/24 01:22 Sodium Chloride 0.9 % 10 Ml Syringe IV-PUSH 07/04/25 22:10 10 ml PRN PRN Administration Flush A&P - Hospitalist Assessment/Plan (1) Acute hypoxic respiratory failure: (2) COPD exacerbation: (3) Hypertension: (4) GERD (gastroesophageal reflux disease): Plan Acute Exacerbation COPD Acute hypoxic respiratory failure d/t AECOPD Tobacco use - afebrile, no leukocytosis. Has been on Levaquin and PO steroid 5days prior toadmit - troponin leak likely demand ischemia d/t hypoxia - CXR - nonacute - CT chest-minimal bibasilar atelectasis or scarring adjacent to hernia, negative for acute pleuroparenchymal disease, moderate to large paraesophageal hiatal hernia - Respiratory panel negative - DuoNebs, azithromycin, IV methylprednisone 40 mg twice daily, inhaled budesonide, hypertonic saline nebs, Mucinex, spirometry and Pep therapy, benzonatate - Sputum culture pending - DVT prophylaxis enoxaparin - Smoking cessation education Chronic conditions Hypertension-amlodipine GERD/hiatal hernia-pantoprazole Documented By: Linda Antonio APRN 06/26 1128 Signed By: 07/05/24 1437 07/07/24 2204 [facility]05-06-2025 [place] [id number] Hospitalist Progress Note Signed Patient: Pepper Ernandez MR#: [id number] : 1955 Acct:[id number] Age/Sex: 69 / F Adm Date: 5 Loc: 3T Room: [address] [place] [address] Type: ADM IN Attending Dr: Eliu Schmitz MD Copies to: ~ Date of Service: 07/06/2024 Subjective Subjective Narrative: Seen and examined. She is resting in bed. She states she got up to the bathroom without her oxygen,on return trip she stated she though she was goingto . Became very dyspneic and was placed on oxygen, saturation she reports 83% at that time. She does not wear oxygen at home. She states cough improved from admission but still present, still nonproductive and tight. Is using PAP therapy and spirometry. Good intake reported, no abdominal complaints. Exam Physical Exam Vital Signs: Temp Pulse Resp BP Pulse Ox O2 Del Method O2 Flow Rate 97.5 F L 86 17 136/82 93 L Nasal Cannula 2 07/06/24 09:54 07/06/24 09:54 07/06/24 09:54 07/06/24 09:54 07/06/24 09:54 07/06/24 09:54 07/06/24 09:54 Narrative: CONST- alert, in bed, elderly female CARD- RRR no abnormal heart tones PULM- dimin, wheeze end-exhalation, no rhonchi, O2 2LNC, tight cough ABD- S/NT, NABS, round/ obese EXTREM- no edema BLE, calves nontender Objective Lab Results 07/06/24 05:23 07/06/24 05:23 Microbiology Results Microbiology 07/05/24 11:25 Sputum - Expectorated Aerobic Culture - Preliminary Moderate Normal Respiratory Lilia 1 Day 07/05/24 11:25 Sputum - Expectorated Gram Stain - Final Meds Allergies and Active Meds Allergies No Known Allergies Allergy (Verified 07/04/24 22:11) Active Meds: Active Medications Generic Name Dose Route Start Last Admin Trade Name Freq PRN Reason Stop Dose Admin Acetaminophen 650 mg 07/05/24 02:05 07/05/24 20:56 Acetaminophen 325 Mg Tablet PO 07/05/25 02:04 650 mg Q6HR PRN Administration Pain Scale 1 - 3 or fever Albuterol 2.5 mg 07/05/24 02:05 Albuterol Neb 2.5 Mg/3 Ml Vial.Neb INHALATION 07/05/25 02:04 Q3H PRN Cough/Wheeze Albuterol/Ipratropium 3 ml 07/05/24 08:00 07/06/24 09:01 Ipratropium/Albuterol 0.5-3 Mg 3 Ml Ampul.Neb INHALATION 07/05/25 07:59 3 ml QID.RESP JOSTIN Administration Amlodipine Besylate 10 mg 07/05/24 14:00 07/06/24 09:56 Amlodipine 10 Mg Tablet PO 07/05/25 13:59 10 mg DAILY JOSTIN Administration Benzonatate 200 mg 07/05/24 02:07 07/05/24 04:02 Benzonatate 100 Mg Capsule PO 07/05/25 02:06 200 mg TID PRN Administration Cough Budesonide 0.5 mg 07/05/24 09:00 07/06/24 09:00 Budesonide 0.5 Mg/2 Ml Ampul.Neb INHALATION 07/05/25 08:59 0.5 mg BID JOSTIN Administration Enoxaparin Sodium 40 mg 07/05/24 10:00 07/06/24 09:56 Enoxaparin 40 Mg/0.4 Ml Syringe SUBCUT 07/05/25 09:59 Not Given DAILY@10 JOSTIN Guaifenesin 1,200 mg 07/05/24 09:00 07/06/24 09:56 Guaifenesin 600 Mg Tab.Er.12h PO 07/05/25 08:59 1,200 mg BID JOSTIN Administration Azithromycin 500 mg in 250 mls @ 250 mls/hr 07/05/24 04:00 07/06/24 04:10 Zithromax IV 250 mls/hr Q24H JOSTIN Administration Methylprednisolone Sodium Succinate 40 mg 07/05/24 09:00 07/06/24 09:56 Methylprednisolone Sod Succ/Pf 40 Mg/Ml (1ml) Vial IV-PUSH 07/05/25 08:59 40 mg Q12H JOSTIN Administration Morphine Sulfate 2 mg 07/05/24 02:05 Morphine Sulfate 2 Mg/Ml Vial IV-PUSH Q4H PRN Pain Scale 8 - 10 Pantoprazole Sodium 40 mg 07/05/24 09:00 07/06/24 09:56 Pantoprazole 40 Mg Tablet.Dr PARRA 07/05/25 08:59 40 mg DAILY JOSTIN Administration Prochlorperazine Edisylate 5 mg 07/05/24 02:05 Prochlorperazine Edisylate 10 Mg/2 Ml Vial IV-PUSH 07/05/25 02:04 Q4H PRN Nausea And Vomiting Sodium Chloride 0 ml 07/04/24 22:11 07/05/24 01:22 Sodium Chloride 0.9 % 10 Ml Syringe IV-PUSH 07/04/25 22:10 10 ml PRN PRN Administration Flush A&P - Hospitalist Assessment/Plan (1) Acute hypoxic respiratory failure: (2) COPD exacerbation: (3) Hypertension: (4) GERD (gastroesophageal reflux disease): Plan Acute Exacerbation COPD Acute hypoxic respiratory failure d/t AECOPD Tobacco use - afebrile, no leukocytosis. Had been on Levaquin and PO steroid 5days prior toadmit - troponin leak likely demand ischemia d/t hypoxia - CXR - nonacute - CT chest-minimal bibasilar atelectasis or scarring adjacent to hernia, negative for acute pleuroparenchymal disease, moderate to large paraesophageal hiatal hernia - Respiratory panel negative - DuoNebs, azithromycin, IV methylprednisone 40 mg twice daily, inhaled budesonide, hypertonic saline nebs, Mucinex, spirometry and Pep therapy, benzonatate - Sputum culture pending - DVT prophylaxis enoxaparin - Smoking cessation education Chronic conditions Hypertension-amlodipine GERD/hiatal hernia-pantoprazole Documented By: Linda Antonio APRN 07/26 0945 Signed By: 07/06/24 1404 07/07/24 3351 [facility]05-06-2025 [facility] [address] [place] [address] Hospitalist Progress Note Signed Patient: Pepper Ernandez MR#: [id number] : 1955 Acct:[id number] Age/Sex: 69 / F Adm Date: 5 Loc: 3T Room: [address] [place] [address] Type: ADM IN Attending Dr: Eliu Schmitz MD Copies to: ~ Date of Service: 07/07/2024 Subjective Subjective Narrative: Patient is seen and examined. She is up in the chair. States she was able to get up to the bathroomtoday much better than yesterday, asks about showering, is keeping her oxygen on now though she states overnight she must have inadvertently pulled it off and she woke up this morning in distress with low saturations. She continues with tight cough by her report that she feels is in the upper portion of her chest. Cough remains nonproductive. Since this may have component of bronchitis as well, will check full respiratory PCR Exam Physical Exam Vital Signs: Temp Pulse Resp BP Pulse Ox O2 Del Method O2 Flow Rate 98.1 F 94 20 131/82 95 Nasal Cannula 2 07/07/24 09:47 07/07/24 09:47 07/07/24 09:47 07/07/24 09:47 07/07/24 09:47 07/07/24 09:47 07/07/24 09:47 Narrative: CONST- alert, in chair, elderly female CARD- RRR no abnormal heart tones PULM- dimin, improved wheeze minimal but sounds tight today with anterior bronchovesicular sounds, no rhonchi, O2 2LNC, tight cough ABD- S/NT, NABS, round/ obese EXTREM- no edema BLE, calves nontender Objective Lab Results 07/06/24 05:23 07/06/24 05:23 Microbiology Results Microbiology 07/05/24 11:25 Sputum - Expectorated Aerobic Culture - Final 07/05/24 11:25 Sputum - Expectorated Gram Stain - Final Meds Allergies and Active Meds Allergies No Known Allergies Allergy (Verified 07/04/24 22:11) Active Meds: Active Medications Generic Name Dose Route Start Last Admin Trade Name Freq PRN Reason Stop Dose Admin Acetaminophen 650 mg 07/05/24 02:05 07/05/24 20:56 Acetaminophen 325 Mg Tablet PO 07/05/25 02:04 650 mg Q6HR PRN Administration Pain Scale 1 - 3 or fever Albuterol 2.5 mg 07/05/24 02:05 Albuterol Neb 2.5 Mg/3 Ml Vial.Neb INHALATION 07/05/25 02:04 Q3H PRN Cough/Wheeze Albuterol/Ipratropium 3 ml 07/05/24 08:00 07/07/24 08:40 Ipratropium/Albuterol 0.5-3 Mg 3 Ml Ampul.Neb INHALATION 07/05/25 07:59 3 ml QID.RESP JOSTIN Administration Amlodipine Besylate 10 mg 07/05/24 14:00 07/07/24 09:50 Amlodipine 10 Mg Tablet PO 07/05/25 13:59 10 mg DAILY JOSTIN Administration Benzonatate 200 mg 07/05/24 02:07 07/07/24 03:17 Benzonatate 100 Mg Capsule PO 07/05/25 02:06 200 mg TID PRN Administration Cough Budesonide 0.5 mg 07/05/24 09:00 07/07/24 08:40 Budesonide 0.5 Mg/2 Ml Ampul.Neb INHALATION 07/05/25 08:59 0.5 mg BID JOSTIN Administration Enoxaparin Sodium 40 mg 07/05/24 10:00 07/07/24 09:50 Enoxaparin 40 Mg/0.4 Ml Syringe SUBCUT 07/05/25 09:59 Not Given DAILY@10 JOSTIN Guaifenesin 1,200 mg 07/05/24 09:00 07/07/24 09:50 Guaifenesin 600 Mg Tab.Er.12h PO 07/05/25 08:59 1,200 mg BID JOSTIN Administration Azithromycin 500 mg in 250 mls @ 250 mls/hr 07/05/24 04:00 07/07/24 03:17 Zithromax IV 250 mls/hr Q24H JOSTIN Administration Methylprednisolone Sodium Succinate 40 mg 07/05/24 09:00 07/07/24 09:50 Methylprednisolone Sod Succ/Pf 40 Mg/Ml (1ml) Vial IV-PUSH 07/05/25 08:59 40 mg Q12H JOSTIN Administration Morphine Sulfate 2 mg 07/05/24 02:05 Morphine Sulfate 2 Mg/Ml Vial IV-PUSH Q4H PRN Pain Scale 8 - 10 Pantoprazole Sodium 40 mg 07/05/24 09:00 07/07/24 09:50 Pantoprazole 40 [address] Tablet.Dr PARRA 07/05/25 08:59 40 mg DAILY JOSTIN Administration Prochlorperazine Edisylate 5 mg 07/05/24 02:05 Prochlorperazine Edisylate 10 Mg/2 Ml Vial IV-PUSH 07/05/25 02:04 Q4H PRN Nausea And Vomiting Sodium Chloride 0 ml 07/04/24 22:11 07/07/24 03:17 Sodium Chloride 0.9 % 10 Ml Syringe IV-PUSH 07/04/25 22:10 10 ml PRN PRN Administration Flush A&P - Hospitalist Assessment/Plan (1) Acute hypoxic respiratory failure: (2) COPD exacerbation: (3) Hypertension: (4) GERD (gastroesophageal reflux disease): Plan Acute Exacerbation COPD, Bronchitis Acute hypoxic respiratory failure d/t AECOPD Tobacco use - afebrile, no leukocytosis. Had been on Levaquin and PO steroid 5days prior toadmit - troponin leak likely demand ischemia d/t hypoxia - CXR - nonacute - CT chest-minimal bibasilar atelectasis or scarring adjacent to hernia, negative for acute pleuroparenchymal disease, moderate to large paraesophageal hiatal hernia - Triple Respiratory panel negative, will check full viral panel - DuoNebs, azithromycin, IV methylprednisone 40 mg decreased to daily, inhaled budesonide, hypertonic saline nebs, Mucinex, spirometry and Pep therapy, benzonatate. Plan oral steroid taper at discharge - Sputum culture negative - DVT prophylaxis enoxaparin - Smoking cessation education - will have therapy eval with ongoing hospitalization and weakness, anticipate discharge next 24-48hr, will need walk test at hi Chronic conditions Hypertension-amlodipine GERD/hiatal hernia-pantoprazole Documented By: Linda Antonio APRN 08/26 1030 Signed By: 07/07/24 1430 07/07/24 6398 [facility]2025 Radiology Diagnostic study note [facility] [place] [address] [place], [place] [id number] CT Scan Report Signed Patient: Pepper Ernandez MR#: [id number] : 1955 Acct:[id number] Age/Sex: 69 / F ADM Date: 5 Loc: 3T Room: [address] [place] [address] Type: ADM IN Attending Dr: Eliu Schmitz MD Copies to: MD Trevin Jeronimo Jr, MD~ Ordering Provider: Trevin Sepulveda Jr, MD Date of Service: 07/05/24 CT/CT chest w con: wheezing, hypoxic, R hilar density/mass on CXR CT CHEST WITH INTRAVENOUS CONTRAST: CLINICAL HISTORY: Shortness breath, hypoxia, wheezing abnormal chest x-ray COMPARISON: Chest x-ray 07/05/2024 TECHNIQUE: Spiral images were obtained through the chest following intravenous administration of IVcontrast. This CT exam was performed using one [...] West M.D. 07/05/2024 9:18 AM Dictation Location: [place] [address] Transcribed By: [facility] 07/05/24917 Dictated By: Phillip West MD 07/05/24913 Signed By: 07/05/24917 [facility] Work Phone: [phone]) 222-282105-04-2025 History and physical note Author Genie Man [facility] Note Date/Time July 05, 2024 3:36am [facility] [address] [place] [address] Hospitalist H&P Signed Patient: Pepper Ernandez MR#: [id number] : 1955 Acct:[id number] Age/Sex: 69 / F Adm Date: 5 Loc: Room: [address] [place] [address] Type: ADM IN Attending Dr: Genie Man MD Copies to: MD Genie Ho MD~ HPI DATE OF EXAMINATION: 07/05/24 CHIEF COMPLAINT: SOB HISTORY OF PRESENT ILLNESS: Patient is a 69 year old female with medical history of HTN, GERD, and COPD presented to ER due to SOB. Patient reports worsening SOB and cough and wheezes,symptoms started about 2 weeks ago, visited her PCP, given Prednisone and Levofloxacin which has been taking over the past several days with no significant improvement. Patient was in [place] nearby and was driving home to [place], she felt short of breath, got out of her car to get fresh air, decidedto call EMS who came and gave her breathing treatments and brought her here for further evaluation and management. She denies nausea, vomiting, diarrhea. Deniesfevers, chills. She does report cough but having difficulty expectorate sputum. on arrival here, patient noted with desaturation down to 86-87% on RA, she is not on oxygen at home. she was mildly tachypneic with mild work of breathing andprolonged expiratory wheezes. Given duonebs in ER and IV steroids. placed on 2L NC with improvement in her oxygen saturation. CXR with no obvious infiltrates. ER reviewed CXR and suspected R hilar mass for which CT chest was done with no obvious infiltrates or mass. Decision was made to admit her for further evaluation and management. Review of Systems Review of Systems All other systems reviewed & are negative unless noted below or in HPI [facility] Medical History COPD (chronic obstructive pulmonary disease) Family History Brother Legacy FamHx Relation: Brother(s) Diabetes Legacy FamHx Relation: Brother(s) Father Cancer Legacy FamHx Problem: Diagnosed with Cancer Social History Smoking Status: Former smoker Substance Use Type: Alcohol Substance Abuse Comment: etoh occasionally. Meds Medications and Allergies Allergies No Known Allergies Allergy (Verified 07/04/24 22:11) Home Medications albuterol sulfate 2.5 mg/3 mL (0.083 %) solution for nebulization 2.5 mg inhalation Q1HR PRN shortness of breath 07/05/24 [History Confirmed 07/05/24] amlodipine 5 mg tablet 5 mg PO DAILY 07/05/24 [History Confirmed 07/05/24] cholecalciferol (vitamin D3) 50 mcg (2,000 unit) capsule (Vitamin D3) 50 mcg PO DAILY 07/05/24 [History Confirmed 07/05/24] omeprazole 40 mg capsule,delayed release 40 mg PO DAILY 07/05/24 [History Confirmed 07/05/24] Exam Physical Exam Vital Signs: Temp Pulse Resp BP Pulse Ox O2 Del Method O2 Flow Rate 98 F 80 20 125/73 97 Nasal Cannula 2 07/04/24 23:52 07/05/24 01:00 07/05/24 01:00 07/05/24 01:00 07/05/24 01:00 07/05/24 01:00 07/05/24 01:00 Narrative: Const General: cooperative HEENT Normal oropharyngeal mucosa without any ulcers or exudates Eyes: Conjunctiva normal Pulmonary Auscultation: diminished breath sounds, decreased air entry, prolonged expiratory wheezes Cardiovascular Rate: normal rate Rhythm: regular rhythm Heart Sounds: S1 normal, S2 normal and no murmurs GI Inspection: non-distended Palpation: soft, not firm and nontender. No rigidity or rebound. Deferred Neuro General: alert, awake and oriented x3. No obvious new focal deficit Musculoskeletal: normal range of motion Extrem General: no cyanosis, no pedal edema Psych Appearance: appropriate affect. Grossly normal. Pleasant Results - Hospitalist H&P Lab Results Labs: Laboratory Last Values Corrected WBC 11.4 X10E3/uL (3.8-11.6) 07/05/24 00:00 Uncorrected WBC Count 11.4 x10E3/uL (3.8-11.6) 07/05/24 00:00 RBC 5.13 x10E6/uL (3.60-5.00) H 07/05/24 00:00 Hgb 16.3 g/dL (11.8-15.4) H 07/05/24 00:00 Hct 48.6 % (34.0-46.4) H 07/05/24 00:00 MCV 94.6 fl (80-100) 07/05/24 00:00 MCH 31.8 pg (24.7-34.3) 07/05/24 00:00 MCHC 33.7 g/dL (32.0-35.0) 07/05/24 00:00 RDW 12.9 % (11.9-15.3) 07/05/24 00:00 Plt Count 281 x10E3/uL (150-450) 07/05/24 00:00 MPV 8.5 fl (6.3-10.7) 07/05/24 00:00 Neut % (Auto) 59.1 % (.) 07/05/24 00:00 Lymph % (Auto) 29.7 % (.) 07/05/24 00:00 [place] % (Auto) 9.0 % (.) 07/05/24 00:00 Eos % (Auto) 1.5 % (.) 07/05/24 00:00 Baso % (Auto) 0.7 % (.) 07/05/24 00:00 Nucleat RBC Rel Count 0.1 /100 WBC (0-0.5) 07/05/24 00:00 Neut # (Auto) 6.7 x10E3/uL (1.8-7.7) 07/05/24 00:00 Lymph # (Auto) 3.4 x10E3/uL (1.00-4.8) 07/05/24 00:00 [place] # (Auto) 1.0 x10E3/uL (0.0-0.8) H 07/05/24 00:00 Eos # (Auto) 0.2 x10E3/uL (0.0-0.45) 07/05/24 00:00 Baso # (Auto) 0.1 x10E3/uL (0.0-0.2) 07/05/24 00:00 Monocyte Dist Width 18.77 % (0.00-20.00) 07/05/24 00:00 PHA Creatinine Clear 65.71 07/05/24 00:00 Sodium 139 mmol/L (136-145) 07/05/24 00:00 Potassium 4.1 mmol/L (3.5-5.1) 07/05/24 00:00 Chloride 103 mmol/L (98-107) 07/05/24 00:00 Carbon Dioxide 28.2 mmol/L (21.0-31.0) 07/05/24 00:00 Anion Gap 11.9 mEq/L (6.0-15.0) 07/05/24 00:00 BUN 16 mg/dL (7-25) 07/05/24 00:00 Creatinine 0.87 mg/dL (0.60-1.20) 07/05/24 00:00 Est GFR (CKD-EPI) > 60.0 mL/Min 07/05/24 00:00 Glucose 117 mg/dL (70-100) H 07/05/24 00:00 Calcium 9.2 mg/dL (8.6-10.3) 07/05/24 00:00 Total Bilirubin 0.2 mg/dl (0.3-1.0) L 07/05/24 00:00 AST 57 U/L (13-39) H 07/05/24 00:00 ALT 50 U/L (7-52) 07/05/24 00:00 Alkaline Phosphatase 70 U/L (34-104) 07/05/24 00:00 Total Creatine Kinase 113 U/L (30-223) 07/05/24 00:00 Troponin I High Sens 27 ng/L (0-15) H 07/05/24 00:00 B-Natriuretic Peptide 42.0 pg/mL (5-100) 07/05/24 00:00 Total Protein 6.8 gm/dL (6.4-8.9) 07/05/24 00:00 Albumin 4.1 gm/dL (3.5-5.7) 07/05/24 00:00 Globulin 2.7 gm/dL 07/05/24 00:00 Albumin/Globulin Ratio 1.5 07/05/24 00:00 SARS-CoV-2 Rap RNA(RT-PCR) Negative (Negative) 07/04/24 00:00 Microbiology Results Micro: Microbiology - Results from entire visit 07/04/24 00:00 Nasopharyngeal SARS-CoV-2, Influenza & RSV (PCR) - Final Assessment & Plan Assessment/Plan (1) Acute hypoxic respiratory failure: (2) COPD exacerbation: Plan -Afebrile, no leukocytosis -Trivial troponin elevation likely demand ischemia due to hypoxia -Chest x-ray showing no obvious infiltrates -CT chest done, prelim read no obvious infiltrates -Respiratory panel unremarkable -Start DuoNebs QID -Start Azithromycin x 5 days -Start Solumedrol IV as directed -Mag sulfate 2 g IV -Start Budesonide BID -Mucinex as directed -PEP as directed -Hypertonic saline nebs -Obtain sputum culture if able -Monitor for fever/leukocytosis DVT ppx: Lovenox Diet: regular Home medications reviewed and resumed as appropriate Discussed with patient at bedside, questions answered, patient is in agreement with above plan IP vs OBS Justification Based on differential dx, clinical care plan, and risk of adverse events, if untreated, in my clinical judgement this patient requires an acute care setting as: INPATIENT because of an expectation of an over 2 midnight stay. Estimated length of stay (# of days): 3 Documented By: Genie Man MD 07/05/24 02 08 Signed By: <Electronically signed by Genie Man MD> 07/05/24 0336 [facility] Work Phone: 1(590) 996-121005-04-2025 Evaluation note* Diagnosis Onset Date Resolution Status Admit Date Acute hypoxic respiratory failure ac alex July 05, 2024 2:05am COPD exacerbation acute July 2:05am GERD (gastroesophageal reflu x disease) acute July 05, 2024 2: 05am Hypertension acute July 05 2:05am [facility] Work Phone: [phone] 460-220205-04-2025 [place] [address] Hospitalist H&P Signed Patient: Pepper Ernandez MR#: [id number] : 1955 Acct:[id number] Age/Sex: 69 / F Adm Date: 5 Loc: Room: [address] [place] [address] Type: ADM IN Attending Dr: Genie Man MD Copies to: MD Genie Ho MD~ HPI DATE OF EXAMINATION: 07/05/24 CHIEF COMPLAINT: SOB HISTORY OF PRESENT ILLNESS: Patient is a 69 year old female with medical history of HTN, GERD, and COPD presented to ER due to SOB. Patient reports worsening SOB and cough and wheezes,symptoms started about 2 weeks ago, visitedher PCP, given Prednisone and Levofloxacin which has been taking over the past several days with nosignificant improvement. Patient was in [place] nearby and was driving home to [place], she felt short of breath, got out of her car to get fresh air, decidedto call EMS who came and gave her breathing treatments and brought her here for further evaluation and management. She denies nausea, vomiting, diarrhea. Deniesfevers, chills. She does report cough but having difficulty expectorate sputum.on arrival here, patient noted with desaturation down to 86-87% on RA, she is not on oxygen at home. she was mildly tachypneic with mild work of breathing andprolonged expiratory wheezes. Given duonebs in ER and IV steroids. placed on 2L NC with improvement in her oxygen saturation. CXR with no obvious infiltrates. ER reviewed CXR and suspected R hilar mass for which CT chest was done with no obvious infiltrates or mass. Decision was made to admit her for further evaluation and management. Review of Systems Review of Systems All other systems reviewed & are negative unless noted below or in HPI [facility] Medical History COPD (chronic obstructive pulmonary disease) Family History Brother Legacy FamHx Relation: Brother(s) Diabetes Legacy FamHx Relation: Brother(s) Father Cancer Legacy FamHx Problem: Diagnosed with Cancer Social History Smoking Status: Former smoker Substance Use Type: Alcohol Substance Abuse Comment: etoh occasionally. Meds Medications and Allergies Allergies No Known Allergies Allergy (Verified 07/04/24 22:11) Home Medications albuterol sulfate 2.5 mg/3 mL (0.083 %) solution for nebulization 2.5 mg inhalation Q1HR PRN shortness of breath 07/05/24 [History Confirmed 07/05/24] amlodipine 5 mg tablet 5 mg PO DAILY 07/05/24 [History Confirmed 07/05/24] cholecalciferol (vitamin D3) 50 mcg (2,000 unit) capsule (Vitamin D3) 50 mcg PO DAILY 07/05/24 [History Confirmed 07/05/24] omeprazole 40 mg capsule,delayed release 40 mg PO DAILY 07/05/24 [History Confirmed 07/05/24] Exam Physical Exam Vital Signs: Temp Pulse Resp BP Pulse Ox O2 Del Method O2 Flow Rate 98 F 80 20 125/73 97 Nasal Cannula 2 07/04/24 23:52 07/05/24 01:00 07/05/24 01:00 07/05/24 01:00 07/05/24 01:00 07/05/24 01:00 07/05/24 01:00 Narrative: Const General: cooperative HEENT Normal oropharyngeal mucosa without any ulcers or exudates Eyes: Conjunctiva normal Pulmonary Auscultation: diminished breath sounds, decreased air entry, prolonged expiratory wheezes Cardiovascular Rate: normal rate Rhythm: regular rhythm Heart Sounds: S1 normal, S2 normal and no murmurs GI Inspection: non-distended Palpation: soft, not firm and nontender. No rigidity or rebound. Deferred Neuro General: alert, awake and oriented x3. No obvious new focal deficit Musculoskeletal: normal range of motion Extrem General: no cyanosis, no pedal edema Psych Appearance: appropriate affect. Grossly normal. Pleasant Results - Hospitalist H&P Lab Results Labs: Laboratory Last Values Corrected WBC 11.4 X10E3/uL (3.8-11.6) 07/05/24 00:00 Uncorrected WBC Count 11.4 x10E3/uL (3.8-11.6) 07/05/24 00:00 RBC 5.13 x10E6/uL (3.60-5.00) H 07/05/24 00:00 Hgb 16.3 g/dL (11.8-15.4) H 07/05/24 00:00 Hct 48.6 % (34.0-46.4) H 07/05/24 00:00 MCV 94.6 fl (80-100) 07/05/24 00:00 MCH 31.8 pg (24.7-34.3) 07/05/24 00:00 MCHC 33.7 g/dL (32.0-35.0) 07/05/24 00:00 RDW 12.9 % (11.9-15.3) 07/05/24 00:00 Plt Count 281 x10E3/uL (150-450) 07/05/24 00:00 MPV 8.5 fl (6.3-10.7) 07/05/24 00:00 Neut % (Auto) 59.1 % (.) 07/05/24 00:00 Lymph % (Auto) 29.7 % (.) 07/05/24 00:00 [place] % (Auto) 9.0 % (.) 07/05/24 00:00 Eos % (Auto) 1.5 % (.) 07/05/24 00:00 Baso % (Auto) 0.7 % (.) 07/05/24 00:00 Nucleat RBC Rel Count 0.1 /100 WBC (0-0.5) 07/05/24 00:00 Neut # (Auto) 6.7 x10E3/uL (1.8-7.7) 07/05/24 00:00 Lymph # (Auto) 3.4 x10E3/uL (1.00-4.8) 07/05/24 00:00 [place] # (Auto) 1.0 x10E3/uL (0.0-0.8) H 07/05/24 00:00 Eos # (Auto) 0.2 x10E3/uL (0.0-0.45) 07/05/24 00:00 Baso # (Auto) 0.1 x10E3/uL (0.0-0.2) 07/05/24 00:00 Monocyte Dist Width 18.77 % (0.00-20.00) 07/05/24 00:00 PHA Creatinine Clear 65.71 07/05/24 00:00 Sodium 139 mmol/L (136-145) 07/05/24 00:00 Potassium 4.1 mmol/L (3.5-5.1) 07/05/24 00:00 Chloride 103 mmol/L (98-107) 07/05/24 00:00 Carbon Dioxide 28.2 mmol/L (21.0-31.0) 07/05/24 00:00 Anion Gap 11.9 mEq/L (6.0-15.0) 07/05/24 00:00 BUN 16 mg/dL (7-25) 07/05/24 00:00 Creatinine 0.87 mg/dL (0.60-1.20) 07/05/24 00:00 Est GFR (CKD-EPI) > 60.0 mL/Min 07/05/24 00:00 Glucose 117 mg/dL (70-100) H 07/05/24 00:00 Calcium 9.2 mg/dL (8.6-10.3) 07/05/24 00:00 Total Bilirubin 0.2 mg/dl (0.3-1.0) L 07/05/24 00:00 AST 57 U/L (13-39) H 07/05/24 00:00 ALT 50 U/L (7-52) 07/05/24 00:00 Alkaline Phosphatase 70 U/L (34-104) 07/05/24 00:00 Total Creatine Kinase 113 U/L (30-223) 07/05/24 00:00 Troponin I High Sens 27 ng/L (0-15) H 07/05/24 00:00 B-Natriuretic Peptide 42.0 pg/mL (5-100) 07/05/24 00:00 Total Protein 6.8 gm/dL (6.4-8.9) 07/05/24 00:00 Albumin 4.1 gm/dL (3.5-5.7) 07/05/24 00:00 Globulin 2.7 gm/dL 07/05/24 00:00 Albumin/Globulin Ratio 1.5 07/05/24 00:00 SARS-CoV-2 Rap RNA(RT-PCR) Negative (Negative) 07/04/24 00:00 Microbiology Results Micro: Microbiology - Results from entire visit 07/04/24 00:00 Nasopharyngeal SARS-CoV-2, Influenza & RSV (PCR) - Final Assessment & Plan Assessment/Plan (1) Acute hypoxic respiratory failure: (2) COPD exacerbation: Plan -Afebrile, no leukocytosis -Trivial troponin elevation likely demand ischemia due to hypoxia -Chest x-ray showing no obvious infiltrates -CT chest done, prelim read no obvious infiltrates -Respiratory panel unremarkable -Start DuoNebs QID -Start Azithromycin x 5 days -Start Solumedrol IV as directed -Mag sulfate 2 g IV -Start Budesonide BID -Mucinex as directed -PEP as directed -Hypertonic saline nebs -Obtain sputum culture if able -Monitor for fever/leukocytosis DVT ppx: Lovenox Diet: regular Home medications reviewed and resumed as appropriate Discussed with patient at bedside, questions answered, patient is in agreement with above plan IP vs OBS Justification Based on differential dx, clinical care plan, and risk of adverse events, if untreated, in my clinical judgement this patient requires an acute care setting as: INPATIENT because of an expectation ofan over 2 midnight stay. Estimated length of stay (# of days): 3 Documented By: Genie Man MD 07/05/2404 11 Signed By: 07/05/24 0336 [facility]04-28-2025 History of Present illness Narrative * Jignesh Saez MD - 06/29/2024 3:15 PM EDTAssociated Problem(s): COPD (chronic obstructive pulmonary disease) ([facility]) Currently having an exacerbation of COPD. Treat with prednisone and add levaquin. Use albuterol PRN. * Jignesh Saez MD - 06/29/2024 2:15 PM EDT Images from the original note were not included. Subjective Patient ID: Pepper Ernandez is a 69 y.o. female who presents for Follow-up (Cough, hard to breath). C/o increased SOB over the past 2-3 weeks. Severe SOB and fatigue with exertion. Chest tight and hard to take deep breath. Frequent cough productive clear sputum. Hard to stay active around the houseand need to take frequent breaks. Frequently notice wheezing. Afebrile. No myalgias or body aches. Severe fatigue and no energy. Mild congestion but no ENRIQUEZ or sinus pressure. Ears not bother patient. Denies sick contacts. Given cefdinir 06/25 and no improvement in symptoms. Using albuterol every few hours which helps. Review of Systems Respiratory: Positive for cough, shortness of breath and wheezing. [...] Effort: Pulmonary effort is normal. Breath sounds: Wheezing present. No rhonchi or rales. Abdominal: General: Bowel sounds are normal. There is no distension. Palpations: Abdomen is soft. Tenderness: There is no abdominal tenderness. There is no guarding or rebound. Musculoskeletal: Cervical back: Neck supple. Right lower leg: No edema. Left lower leg: No edema. Neurological: Mental Status: She is alert. Assessment/Plan Problem List Items Addressed This Visit COPD (chronic obstructive pulmonary disease) ([facility]) - Primary Currently having an exacerbation of COPD. Treat with prednisone and add levaquin. Use albuterol PRN. Relevant Medications levoFLOXacin (Levaquin) 750 MG tablet predniSONE (Deltasone) 10 MG tablet albuterol (2.5 MG/3ML) 0.083% nebulizer solution documented in this encounterChildren's Mercy [id number] History of Present illness Narrative* Jignesh Saez MD - 01/08/2024 11:42 AM ESTAssociated Problem(s): Medicare annual wellness visit, subsequent Due for labs. Discussed proper diet and regular aerobic exercise. Need aerobic exercise 5-6 days a week for 30 minutes at a time. Smaller portions and limit total calories. Colonoscopy every 10 years. Tetanus every 10 years. Advised not to smoke. Discussed daily Aspirin therapy. * Jignesh Saez MD - 01/08/2024 11:42 AM ESTAssociated Problem(s): COPD (chronic obstructive pulmonary disease) ([facility]) Breathing stable and continue trelegy. Use albuterol PRN. * Jignesh Saez MD - 01/08/2024 11:00 AM EST Images from the original note were not [...] snacking. Tries to limit total daily calories. Duefor labs. Requests medication for weight loss. COPD [...] differential Hepatic function panel documented in this encounterChildren's Mercy [id number] History of Present illness Narrative* Jignesh Saez MD - 12/10/2023 2:25 PM EDTAssociated Problem(s): Closed Colles' fracture of left radius with routine healing Doing well after surgery and follow with ortho. * Jignesh Saez MD - 12/10/2023 2:24 PM EDTAssociated Problem(s): Essential hypertension, benign (CMS/HCC) BP controlled and monitor PRN. * Jignesh Saez MD - 12/10/2023 2:24 PM EDTAssociated Problem(s): Postmenopausal Check dexa. * Jignesh Saez MD - 12/10/2023 2:00 PM EDT Images from the original note were [...] splinted. Followed with ortho and to OR forORIF 11/24. Doing well after surgery. Mild pain and using tylenol. Seen yesterday and out of splint.Wearing brace and mild pain. Moving fingers and swelling improved. Never had DEXA scan. Checking BPPRN and typically controlled. BP normal today. Taking [...] Orders DEXA bone density documented in this encounterChildren's Mercy [id number] NoteDate of Procedure 10/09/2023. Notes Bilateral upper eyelid ptosis with brow ptosis, dermatochalasis, skin on lashes temporally.[id number] NoteDate of Procedure 10/09/2023. Waste Recycler Information Right Eye Difference between Bishop visual field results of lids tapped and untaped 15. Left Eye Difference between Bishop visual field results of lids tapped and untaped 15. Interpretation Right Eye Decreased superior visual field. Left Eye Decreased superior visual field.[id number] Instructions* Patient Instructions* Gideon Ruelas MD - 10/09/2023 11:44 AM [...] in eye(s) to protect eye from stitch, riskof corneal abrasion discussed Ptosis surgery sometimes is unpredictable; may need multiple surgeries Risk yoel of dryness of eye/asymmetry Xavier's phenomenon can also occur (other side drops because less drive to raise eyelids as well as brows drop from less forehead use to raise eyelids) *bloody tears after surgery expected, maybe bleeding episode, if occurs hold pressure 10-15 min documented in this encounterOhio[facility] NoteHNO ID: [id number] Author: GIDEON RUELAS MD Service: ? Author Type: Fellow Type: Progress Notes Filed: 11/06/2023 15:39 Note Text: History: Pepper Ernandez is a 68 year old woman with history of droopy eyelids, now bothersome for the past year. She was referred by her cable tender Dr. Westbrook for dermatochalasis. She is most [...] the above, please contact me directly at [phone]. Gideon Ruelas [facility]08-07-2024 History of Present illness Narrative* Gideon Ruelas MD - 10/09/2023 11:17 AM EDT History: Pepper Ernandez is a 68 year old woman with history of droopy eyelids, now bothersome for the past year. She was referred by her cable tender Dr. Westbrook for dermatochalasis. She is most [...] in eye(s) to protect eye from stitch, riskof corneal abrasion discussed Ptosis surgery sometimes is [...] in 1 year prn. documented in this encounterOhiohealth [facility]02-08-2024 History of Present illness Narrative* Jignesh Saez MD - 04/11/2023 1:27 PM ESTAssociated Problem(s): Obesity (BMI 30-39.9) Patient overweight and [...] month. OARRS reviewed. Continue medications as prescribed. * Jignesh Saez MD - 04/11/2023 1:27 PM ESTAssociated Problem(s): Lower extremity edema No edema and elevate legs PRN. * Jignesh Saez MD - 04/11/2023 1:27 PM ESTAssociated Problem(s): Tobacco user Doing well with chantix and stopped smoking. Continue medication for additional 8 weeks. * Jignesh Saez MD - 04/11/2023 1:27 PM ESTAssociated Problem(s): Essential hypertension, benign (CMS/HCC) BP controlled and monitor PRN. * Jignesh Saez MD - 04/11/2023 1:27 PM ESTAssociated Problem(s): COPD (chronic obstructive pulmonary disease) (CMS/HCC) Breathing improved after stopping smoking and continue trelegy. Use albuterol PRN. * Jignesh Saez MD - 04/11/2023 1:00 PM EST Subjective Patient ID: Pepper Ernandez is a [...] (Adipex-P) 37.5 MG tablet documented in this encounterChildren's Mercy [id number] Evaluation note* Encounter Date Diagnosis Assessment Notes Treatment Notes Treatment Clinical Notes May, Bug bite, initial encounter (ICD-10 - W57.XXXA) Take medications as directed. Complete all doses. Unable to determine what type of insect cause bites. . Follow up with primary care provider if no improvement of symptoms with treatment plan [facility] Other Evaluation note* Diagnosis Essential hypertension, benign (CMS/HCC)- Primary Essential hypertension, benign Chronic obstructive pulmonary disease, unspecified COPD type (CMS/HCC) Tobacco user Tobacco use disorder Obesity (BMI 30-39.9) Lower extremity edema Edema documented in this encounter [facility]* Diagnosis Ptosis of both eyelids- Primary Unspecified ptosis of eyelid documented [facility] encounter [facility]* Diagnosis Closed Colles' fracture of left radius with routine healing- Primary Essential hypertension, benign (CMS/HCC) Essential hypertension, benign Postmenopausal Asymptomatic postmenopausal status (age-related) (natural) documented in this encounter [facility]Evaluation [facility]* Diagnosis Essential hypertension, benign (CMS/HCC)- [...] fracture (CMS/HCC)- Primary documented in this encounter [facility]* Diagnosis Essential hypertension, benign (CMS/HCC)- [...] 25.0-29.9) Overweight documented in this encounter [facility]* Diagnosis Essential hypertension, benign (CMS/HCC)- [...] Other abnormal glucose Overweight (BMI 25.0-29.9) Overweight Chronic obstructive pulmonary disease with acute exacerbation (CMS/HCC)- Primary documented in this encounter [facility] HealthcareEvaluation note* Diagnosis Onset Date Resolution Status Admit Date Acute hypoxic respiratory failure ac alex July 05, 2024 2:05am COPD exacerbation acute July 2:05am [facility] Work Phone: Evaluation note* Diagnosis Essential hypertension, benign (CMS/HCC)- [...] Other abnormal glucose Overweight (BMI 25.0-29.9) Overweight Chronic obstructive pulmonary disease with acute exacerbation (CMS/HCC)- Primary Chronic obstructive pulmonary disease, unspecified COPD type (CMS/HCC)- Primary Acute hypoxic respiratory failure (CMS/HCC) documented in this encounter [facility]* Diagnosis Essential hypertension, benign- Primary Essential hypertension, benign Chronic obstructive pulmonary disease, unspecified COPD type (HCC) Tobacco user Tobacco use disorder Lower extremity edema Edema Gastroesophageal reflux disease without esophagitis Esophageal reflux Screening mammogram for breast cancer Essential hypertension, benign- Primary Essential hypertension, benign Chronic obstructive pulmonary disease, unspecified COPD type (HCC) Tobacco user Tobacco use disorder Obesity (BMI 30-39.9) Lower extremity edema Edema Essential hypertension, benign- Primary Essential hypertension, benign Chronic obstructive pulmonary disease, unspecified COPD type (HCC) Obesity (BMI 30-39.9) Lower extremity edema Edema Essential hypertension, benign- Primary Essential hypertension, benign Chronic obstructive pulmonary disease, unspecified COPD type (HCC) Lower extremity edema Edema Gastroesophageal reflux disease without esophagitis Esophageal reflux Overweight (BMI 25.0-29.9) Overweight Closed Colles' fracture of left radius with routine healing- Primary Essential hypertension, benign Essential hypertension, benign Postmenopausal Asymptomatic postmenopausal status (age-related) (natural) Medicare annual wellness visit, subsequent- Primary Essential hypertension, benign Essential hypertension, benign Chronic obstructive pulmonary disease, unspecified COPD type (HCC) Dyslipidemia Other and unspecified hyperlipidemia Encounter for long-term (current) use of medications Encounter for long-term (current) use of other medications Prediabetes Other abnormal glucose Overweight (BMI 25.0-29.9) Overweight Chronic obstructive pulmonary disease with acute exacerbation (HCC)- Primary Chronic obstructive pulmonary disease, unspecified COPD type (HCC)- Primary Acute hypoxic respiratory failure (HCC) Lower extremity edema- Primary Edema SOB (shortness of breath) Shortness of breath Abdominal pain, generalized Essential hypertension, benign Essential hypertension, benign Encounter for long-term (current) use of medications Encounter for long-term (current) use of other medications documented in this encounter [facility]* Diagnosis Essential hypertension, benign- Primary Essential hypertension, benign Chronic obstructive pulmonary disease, unspecified COPD type (HCC) Tobacco user Tobacco use disorder Lower extremity edema Edema Gastroesophageal reflux disease without esophagitis Esophageal reflux Screening mammogram for breast cancer Essential hypertension, benign- Primary Essential hypertension, benign Chronic obstructive pulmonary disease, unspecified COPD type (HCC) Tobacco user Tobacco use disorder Obesity (BMI 30-39.9) Lower extremity edema Edema Essential hypertension, benign- Primary Essential hypertension, benign Chronic obstructive pulmonary disease, unspecified COPD type (HCC) Obesity (BMI 30-39.9) Lower extremity edema Edema Essential hypertension, benign- Primary Essential hypertension, benign Chronic obstructive pulmonary disease, unspecified COPD type (HCC) Lower extremity edema Edema Gastroesophageal reflux disease without esophagitis Esophageal reflux Overweight (BMI 25.0-29.9) Overweight Closed Colles' fracture of left radius with routine healing- Primary Essential hypertension, benign Essential hypertension, benign Postmenopausal Asymptomatic postmenopausal status (age-related) (natural) Medicare annual wellness visit, subsequent- Primary Essential hypertension, benign Essential hypertension, benign Chronic obstructive pulmonary disease, unspecified COPD type (HCC) Dyslipidemia Other and unspecified hyperlipidemia Encounter for long-term (current) use of medications Encounter for long-term (current) use of other medications Prediabetes Other abnormal glucose Overweight (BMI 25.0-29.9) Overweight Chronic obstructive pulmonary disease with acute exacerbation (HCC)- Primary Chronic obstructive pulmonary disease, unspecified COPD type (HCC)- Primary Acute hypoxic respiratory failure (HCC) Lower extremity edema- Primary Edema SOB (shortness of breath) Shortness of breath Abdominal pain, generalized Essential hypertension, benign Essential hypertension, benign Encounter for long-term (current) use of medications Encounter for long-term (current) use of other medications Lower extremity edema- Primary Edema Calculus of gallbladder without cholecystitis without obstruction Abdominal pain, generalized Essential hypertension, benign Essential hypertension, benign Nonalcoholic fatty liver documented in this encounter [facility]* Diagnosis Chest pain, unspecified type- Primary Bilateral upper abdominal pain Left lower quadrant abdominal pain Asymptomatic cholelithiasis documented in this encounter [facility] general Narrative - Reported* Type Description Date Medical History Esophageal reflux Medical History Hypertension Medical History Chronic bronchitis Surgical History tubal Surgical History appendectomy Hospitalization History see above Hospitalization History sob, low 02 levels 06/21 18 07/2017 [facility] Discharge instructionsAmbulatory Orders* DME Home Medical Equipment Time Frame: 1 Day, Location: Determined By Patient [facility] Work Phone: InstructionsNot on filedocumented in this encounter [employer] SystemInstructionsNot on filedocumented in this encounter [facility] [employer] [facility] Summary Purpose Family History No Family History Records Found Relationship Condition Age at Onset Recorded Date/T pavan brother Unknown Diabetes mellitus Unknown father Unknown Malignant neoplasm Unknown Advance Directives No Advanced Directives Records Found Advance Directive Response Recorded Date/ Time Advance Directives No March 08, 2017 11:00am Reason for Referral Specialty Diagnoses / Procedures Referred By Renetta hackett Referred To Contact Diagnoses Obesity (BMI 30-39.9) Jignesh Saez MD [address] [place] [address] Referral ID Status Reason Start Date Expiration Date V isits Requested Visits Authorized [id number] Pending Review 1 1 Chief Complaint and Reason for Visit Chief Complaint Admit Date copd July 05, 2024 2:05am Reason for Visit Admit Date Acute hypoxic respiratory failure July 2:05am COPD exacerbation July 05, 2024 2:05am Reason for Visit Admit Date Acute hypoxic respiratory failure July 2:05am COPD exacerbation July 05, 2024 2:05am GERD (gastroesophageal reflux disease) M ay 2024 2:05am Hypertension July 05, 2024 2:05am Additional Source Comments INFORMATION SOURCE (unrecogn ized section and content) DATE CREATED AUTHOR 08/23/2017 [facility] DATE CREATED AUTHOR AUTHOR'S ORGANIZ ATION 07/18/2020 [facility] DATE CREATED AUTHOR AUTHOR'S ORGANIZ ATION 07/11/2022 [facility] DATE CREATED AUTHOR AUTHOR'S ORGANIZ ATION 11/08/2023 [facility] DATE CREATED AUTHOR AUTHOR'S ORGANIZ ATION 07/19/2024 [facility] DATE CREATED AUTHOR AUTHOR'S ORGANIZ ATION 10/14/2024 [facility] EPIC DATE CREATED AUTHOR AUTHOR'S ORGANIZ ATION 10/21/2024 [facility] REASON FOR VISIT (unrecogniz ed section and content) Reason Comments Follow-up 1 m Reason Comments Dermatochalasis Evaluation Reason Comments Follow-up Broken wrist Reason Comments Medicare Annual Wellness Visit Subsequen t Wellness Reason Comments Follow-up Cough, hard to breat h Reason Comments Follow-up [facility] f /up copd Reason Comments Follow-up Pain/swelling in leg s, feet and stomach Reason Comments Follow-up Discuss test results Reason Comments Cholelithiasis Calculus of gallblad jordon, abdominal pain, referred by Dr. Saez Specialty Diagnoses / Procedures Referred By Renetta t Referred To Contact General Surgery Diagnoses Calculus of gallbladder without cholecystitis without obstruction Generalized abdominal pain Procedures MT OFFICE OUTPATIENT VISIT 60-74 MINS HIGH [facility] [id number] (SNOMED CT) - AMB REFERRAL TO GENERAL SURGERY Jignesh Saez MD [address] [place] [address] Phone: tel: fax: Francesca Munson DO [address] [place] [address] Phone: tel: fax: Referral ID Status Reason Start Date Expiration Date Visits Re quested Visits Authorized [id number] Closed 10/13/2024 04/11/2025 1 1 Care Teams (unrecognized sec tion and content) Team Status: Active Member Role Status Dates Jignesh Saez MD Primary Care Provider Active Team Status: Inactive Member Role Status Dates Trevin Sepulveda Jr, MD Emergency Provider Active Start: July 05, 2024 End: July 08, 2024 Jignesh Saez MD Primary Care Provider Active S tart: July 05, 2024 End: July 08, 2024 Genie Man MD Admit Provider Active Sta rt: July 05, 2024 End: July 08, 2024 Francesca Barbosa DO Attending Provider Active St art: July 05, 2024 End: July 08, 2024 [employer] Relationship Specialty Start Date End Date Jignesh Saez MD [address] [place] [phone] PCP - General Family Medicine 04/11/23 [employer] Relationship Specialty Start Date End Date Jignesh Saez MD [address] [place] [phone] PCP - General Family Medicine 04/11/23 [employer] Relationship Specialty Start Date End Date Jignesh Saez [address] [place] [phone] PCP - General Family Medicine 09/26/23 [employer] Relationship Specialty Start Date End Date Jignesh Saez MD [address] [place] [phone] PCP - General Family Medicine 04/11/23 [employer] Relationship Specialty Start Date End Date Jignesh Saez MD [address] [place] [phone] PCP - General Family Medicine 04/11/23 [employer] Relationship Specialty Start Date End Date Jignesh Saez MD [address] [place] [phone] PCP - General Family Medicine 04/11/23 [employer] Relationship Specialty Start Date End Date Jignesh Saez MD [address] [place] [phone] PCP - General Family Medicine 04/11/23 [employer] Relationship Specialty Start Date End Date Jignesh Saez MD [address] [place] [phone] PCP - General Family Medicine 04/11/23 [employer] Relationship Specialty Start Date End Date Jignesh Saez MD [address] [place] [phone] PCP - General Family Medicine 04/11/23 [employer] Relationship Specialty Start Date End Date Jignesh Saez MD [address] [place] [place] [phone] PCP - General Family Medicine 04/11/23 [employer] Relationship Specialty Start Date End Date Jignesh Saez MD [address] [place] [phone] PCP - General Family Medicine 04/11/23 Team Status: Active Member Role Status Dates Trevin Sepulveda Jr, MD Emergency Provider Active Start: July 05, 2024 Jignesh Saez MD Primary Care Provider Active S tart: July 05, 2024 Genie Man MD Admit Provider, Attending Provi jordon Active Start: July 05, 2024 [employer] Relationship Specialty Start Date End Date Jignesh Saez MD [address] [place] [phone] PCP - General Family Medicine 04/11/23 [employer] Relationship Specialty Start Date End Date Jignesh Saez MD [address] [place] [phone] PCP - General Family Medicine 04/11/23 [employer] Relationship Specialty Start Date End Date Jignesh Saez MD [address] [place] [phone] PCP - General Family Medicine 04/11/23 [employer] Relationship Specialty Start Date End Date Jignesh Saez MD [address] [place] [phone] PCP - [facility] 04/11/23 [employer] Relationship Specialty Start Date End Date Jignesh Saez MD [address] [place] [phone] PCP - General Family [facility] 04/11/23 [employer] Relationship Specialty Start Date End Date Jignesh Saez MD [address] [place] [phone] PCP - [facility] Family Medicine 04/11/23 [employer] Relationship Specialty Start Date End Date Jignesh Saez MD PCP - General Family Medicine 10/01/18 [employer] Relationship Specialty Start Date End Date Jignesh Saez MD PCP - General Family Medicine 10/01/18 Source Comments (unrecognize d section and content) In the event this informatio n is protected by the Federal Confidentiality of Alcohol and Drug Abuse Patient Records regulations: The Federal rules restrict any use of the information to criminally investigate or prosecute any alcohol or drug abuse patient.[facility] Goals (unrecognized section and content) Goals may be documented in a n alternate section FOR RECORDS PERTAINING TO PATIENTS WHO ARE [...] BE BASED ON THE PRIMARY CLINICAL RECORDS. [facility] [employer] [facility]. provides no warranty or guarantee of the accuracy or completeness of information in this document.
--- NOTE | 2024-10-22 08:00 | CA_ITS ---
Patient Name: RADHA ERNANDEZ MR#: [id number] : 1955 Exam Date: 10/22/2024 Ordering Doctor: DR MANUELITO SAEZ . ECHOCARDIOGRAM REPORT PROCEDURE: CA ECHO DOPPLER COMPLETE INDICATIONS: Shortness of breath, edema, hypertension, COPD COMPARISON: None. DESCRIPTION: COMPLETE ECHOCARDIOGRAM Real-time transthoracic echocardiography with 2D, M-mode, spectral and color flow Doppler performed. QUALITY: Technical quality was good. LEFT VENTRICLE: Normal chamber size. Normal left ventricular wall thickness. Calculated left ventricular ejection fraction is 55%. LV EF: Global left ventricular systolic function is normal; visually estimated ejection fraction is 55 to 60%. No obvious wall motion abnormality. DIASTOLIC: Diastolic function is indeterminate. ATRIAL SEPTUM: Visually appears intact. LEFT ATRIUM: Normal chamber size. RIGHT ATRIUM: Normal chamber size. RIGHT VENTRICLE: Normal chamber size. Normal right ventricular systolic function. TRICUSPID VALVE: Normal mobility and thickness. No stenosis with mild regurgitation. Doppler studies reveal mildly (35-45) elevated right sided pressures. RVSP 36 mmHg MITRAL VALVE: Normal mobility and thickness. No evidence of mitral valve stenosis. There is no mitral annular calcification. No mitral regurgitation. AORTIC VALVE: Normal trileaflet appearance. Mildly calcified aortic valve. Normal leaflet mobility. No evidence of aortic valve stenosis. DVI 0.5, JOSE 1.7 cm2, Vmax 1.94 m/s. Trivial aortic regurgitation. AORTIC ROOT: Normal diameter and appearance. Aortic arch is normal in size. PULMONIC VALVE: Normal thickness and mobility. No stenosis. Trivial regurgitation. PERICARDIUM: No evidence of pericardial effusion. IVC: Collapses with inspiration. CONCLUSION: 1. Global left ventricular systolic function is normal; visually estimated ejection fraction is 55 to 60% 2. Normal right ventricular size and systolic function 3. Diastolic function is indeterminate 4. Mild tricuspid regurgitation 5. Mildly elevated right sided pressures; RVSP 36 mmHg 6. No significant valvular abnormalities Adult Echocardiography Procedure Report Left Ventricle LVEDD (3.7 - 5.6 cm): 4.24 cm LVESD (2.2 - 4.0 cm): 2.71 cm LVIVS thickness (0.6 - 1.2 cm): 0.89 cm LVPW thickness (0.5 - 1.0 cm): 0.85 cm e': 0.10 m/s E - e': 8.91 LVOT Max Gradient: 3.79 mm[Hg] LVOT Area (cm2): 0.97 m/s Peak Velocity (LVOT): 0.97 m/s Mean Velocity (LVOT): 0.63 m/s LVOT Diameter 1.98 cm Left Ventricular Ejection Fraction: 55.09 % Left Atrium LA Volume Index (2D A2C): 29.92 ml/m2 Left Atrium Systolic Dimension: 2.64 cm Mitral Valve MV E to A Ratio: 1.06 Mitral Valve A-Wave Peak Velocity: 0.80 m/s Mitral Valve E-Wave Peak Velocity: 0.85 m/s Right Ventricle Aorta AO Root Diam: 3.04 cm Aortic Valve AoV Area (Peak Kyler): 1.54 cm2, 1.68 cm2 AoV Area (VTI): 1.71 cm2, 1.85 cm2 Peak Velocity(Antegrade Flow): 1.78 m/s, 1.70 m/s, 1.94 m/s Peak Gradient(Antegrade Flow): 12.63 mm[Hg], 11.50 mm[Hg], 15.04 mm[Hg] Mean Velocity(Antegrade Flow): 1.14 m/s, 1.14 m/s, 1.29 m/s Mean Gradient(Antegrade Flow): 6.08 mm[Hg], 6.11 mm[Hg], 7.33 mm[Hg] Velocity Time Integral: 34.77 cm, 35.25 cm, 37.79 cm Tricuspid Valve Peak Velocity (Regurgitant Flow): 2.86 m/s Pulmonic Valve Peak Gradient: 2.49 mm[Hg], 2.17 mm[Hg] Right Atrium Right Atrium Systolic Pressure: 19.17 ml, 19.17 ml Dictated by: Mamie Lopez M.D. on 10/22/2024 at 15:50 Approved by: Mamie Lopez M.D. on 10/22/2024 at 15:54
== END 2024-10-22 07:49 | disposition home or self-care (01) ==
LOC: CARD 07:48
PROVIDERS: PCP Family Medicine; Visit Provider Family Medicine
DX: R60.0 Localized edema (principal); R06.02 Shortness of breath
CPT/HCPCS: 93306

== ENCOUNTER 2024-12-01 08:29 | Outpatient (OUT) | payer OTHER, BC, SELFPAY ==
--- OUTSIDE RECORDS SUMMARY | 2024-10-21 10:01 | XMS_ITS ---
Author Organization OHIP Care Team Providers Care Beck Tender Name Role Phone JIGNESH SAEZ Attending Unavailable NADERER, JIGNESH Attending Unavailable NADERER, JIGNESH Attending Unavailable NADERER, JIGNESH Attending Unavailable NADERER, JIGNESH Attending Unavailable NADERER, JIGNESH Attending Unavailable DaromaGenie chicas Admitting Unavailable FringsFrancesca Attending Unavailable Naderekai, Jignesh Primary Care Unavailable NADEREKai, JIGNESH Referring Unavailable NADJIGNESH DUVALL Primary Care Unavailable FRANCESCA MUNSON Attending Unavailable NADERER, JIGNESH Referring Unavailable NADEREKai, JIGNESH Primary Care Unavailable Purpose PROBLEMS DATE TYPE CONDITION / CODE ATTENDING STATUS [facility] 10/21/2024 Unknown Chest pain, unsp ecified / R07.9(ICD-10) FRANCESCA MUNSON Active [facility] 10/21/2024 Unknown Right upper quad rant pain / R10.11(ICD-10) FRANCESCA MUNSON Active [facility] 10/21/2024 Unknown Left upper quadr ant pain / R10.12(ICD-10) FRANCESCA MUNSON Active [facility] 10/21/2024 Unknown Left lower quadr ant pain / R10.32(ICD-10) FRANCESCA MUNSON Active [facility] 10/21/2024 Unknown Calculus of gall bladder without cholecystitis without obstruction / K80.20(ICD-10) FRANCESCA MUNOSN [facility] 10/21/2024 Unknown Cholelithiasis / FREETEXT(AOF) FRANCESCA MUNSON [facility] 10/20/2024 Unknown Pain, unspecifie d / R52(ICD-10) NA Active [facility] 07/05/2024 Unknown Chronic obstruct karine pulmonary disease with (acute) exacerbation / J44.1(ICD-10) [facility] Unknown Essential (prima ry) hypertension / I10(ICD-10) [facility] 07/05/2024 Unknown Gastro-esophagea l reflux disease without esophagitis / K21.9(ICD-10) [facility] PROCEDURES No Procedure Records Found VITAL SIGNS No Vital Signs Records Found RESULTS COMPLETE BLOOD COUNT AUTO DIFF Collected: 07/08/2024 6:38 AM Status: F Source: [facility] TYPE CODE TESTS RESULT OUT [...] 0.0-0.2 10*3/uL Result Comment: PERFORMED BY : [facility] [address] [place] [address] PATHOLOGIST CURRICULUM DEVELOPMENT SPECIALIST ELLA CLAY M.D. Performed By: #### BMP, CBC #### [facility] [address] BASIC METABOLIC PANEL Collected: 07/08/2024 6:38 AM Status: F Source: [facility] TYPE CODE TESTS RESULT OUT OF [...] Pharmacy 73.90 Result Comment: PERFORMED BY : [place] [address] PATHOLOGIST CURRICULUM DEVELOPMENT SPECIALIST ELLA CLAY M.D. Performed By: #### BMP, CBC #### [facility] [address] [place], [place] [id number] [facility] RESPIRATORY (UPPER) PANEL, PCR Observed: 07/07/2024 3:40 PM Status: F Source: [facility] Adenovirus Not detected Bordetella parapertussis Not detected [...] Influenza A H3 Blank Space PERFORMED BY: [place] [address] PATHOLOGIST CURRICULUM DEVELOPMENT SPECIALIST ELLA CLAY M.D. Performed By: #### BIOFIRECO VNOTDE, RESP PANEL UPP. #### [facility] [address] [place], [place] [id number] [facility] BIOFIRE NOT DETECTED Collected: 07/07/2024 3:40 PM S tatus: F Source: [facility] TYPE CODE TESTS RESULT OUT OF RANGE REFERENCE UNITS LAB BIOFIRECOVNOTDE BioFire Not Detected Not Detected Not Detecte Result Comment: This is a du plicate RP2.1 COVID (PCR) result to be used for statistical tracking purpose only. PERFORMED BY: [facility] [address] [place] [address] PATHOLOGIST CURRICULUM DEVELOPMENT SPECIALIST ELLA CLAY M.D. Performed By: #### BIOFIRECO VNOTDE, RESP PANEL UPP. #### [facility] [address] COMPLETE BLOOD COUNT AUTO DIFF Collected: 07/06/2024 5:23 AM Status: F Source: [facility] TYPE CODE TESTS RESULT OUT OF [...] 0.0-0.2 10*3/uL Result Comment: PERFORMED BY : [place] [address] PATHOLOGIST CURRICULUM DEVELOPMENT SPECIALIST ELLA CLAY M.D. Performed By: #### CBC, BMP #### [place] [id number] [facility] BASIC METABOLIC PANEL Collected: 07/06/2024 5:23 AM Status: F Source: [facility] TYPE CODE TESTS RESULT OUT OF [...] Pharmacy 72.00 Result Comment: PERFORMED BY : [place] [address] PATHOLOGIST CURRICULUM DEVELOPMENT SPECIALIST ELLA CLAY M.D. Performed By: #### CBC, BMP #### [place] [id number] [place] GRAM STAIN Observed: 07/05/2024 11:25 AM Status: F Source: [facility] Gram Stain Result 4+ Gram Positive Cocci 3+ Gram Positive Bacilli 2+ White Blood Cells 2+ Epithelial Cells PERFORMED BY: [place] [address] PATHOLOGIST CURRICULUM DEVELOPMENT SPECIALIST ELLA CLAY M.D. Performed By: #### GS, AERC #### [place] [id number] [facility] AEROBIC CULTURE Observed: 07/05/2024 11:25 AM Status: F Source: [facility] Result Tab Codes Moderate Normal Respiratory Lilia 2 Days Gram Stain Result 4+ Gram Positive Cocci 3+ Gram Positive Bacilli 2+ White Blood Cells 2+ Epithelial Cells PERFORMED BY: [place] [id number] PATHOLOGIST CURRICULUM DEVELOPMENT SPECIALIST ELLA CLAY M.D. Performed By: #### GS, AERC #### [place] [id number] [facility] XR CHEST 1V PORTABLE Observed: 10:41 AM Status: COMPLETED Source: [facility] Main [place] [address] [place], [place] [address] XRay Report Signed Patient: Pepper Ernandez MR#: [id number] 0 : 1955 Acct:[id number] Age/Sex: 69 / F ADM Date: 07/05/24 Loc: Room: [address] [place] [address] Type: ADM IN Attending Dr: Eliu Schmitz [...] West M.D. 07/05/2024 10:42 AM Dictation Location: [place] [address] Transcribed By: [facility] 07/05/24 1042 Dictated By: Phillip West MD 07/05/24 1041 Signed By: <Electronically signed by Phillip West MD in OV> 07/05/[address] CHEST W CON Observed: 07/05/2024 9:14 AM Status: COMPLETED Source: [facility] [place] [address] CT Scan Report Signed Patient: Pepper Ernandez MR#: [id number] 0 : 1955 Acct:[id number] Age/Sex: 69 / F ADM Date: 07/05/24 Loc: Room: [address] [place] [address] Type: ADM IN Attending Dr: Eliu Schmitz [...] West M.D. 07/05/2024 9:18 AM Dictation Location: [place] [address] Transcribed By: [facility] 07/05/24917 Dictated By: Phillip West MD 07/05/2414 Signed By: <Electronically signed by Phillip West MD in OV> 07/05/24917 COMPLETE BLOOD COUNT AUTO DIFF Collected: 07/05/2024 6:58 AM Status: F Source: [facility] TYPE CODE TESTS RESULT OUT [...] 0.0-0.2 10*3/uL Result Comment: PERFORMED BY : [place] [address] PATHOLOGIST CURRICULUM DEVELOPMENT SPECIALIST ELLA CLAY M.D. Performed By: #### CBC, CMP, HS TROP #### [place] [id number] [facility] TROPONIN I HIGH SENSITIVITY Collected: 07/05/2024 6:5 8 AM Status: F Source: [facility] TYPE CODE TESTS RESULT OUT OF RANGE REFERENCE UNITS LAB HS TROP Troponin I High Sensitivity 18 High 0-15 Result Comment: The Troponin units of report have been changed to meet the Chest Pain Accreditation requirement, element EC5.M1l2. Troponin units are changed from pg/ml to ng/L. Also, the decimal is removed and results are in whole numbers. PERFORMED BY: [place] [address] PATHOLOGIST CURRICULUM DEVELOPMENT SPECIALIST ELLA CLAY M.D. Performed By: #### CBC, CMP, HS TROP #### [facility] [address] [place], [place] [address] [facility] COMPREHENSIVE METABOLIC PANEL Collected: 07/05/2024 6 :58 AM Status: F Source: [facility] TYPE CODE TESTS RESULT OUT OF [...] Pharmacy 72.12 Result Comment: PERFORMED BY : [place] [address] PATHOLOGIST CURRICULUM DEVELOPMENT SPECIALIST ELLA CLAY M.D. Performed By: #### CBC, CMP, HS TROP #### [address] COMPLETE BLOOD COUNT AUTO DIFF Collected: 07/05/2024 12:00 AM Status: F Source: [facility] TYPE CODE TESTS RESULT OUT OF [...] 0.0-0.2 10*3/uL Result Comment: PERFORMED BY : [place] [address] PATHOLOGIST CURRICULUM DEVELOPMENT SPECIALIST ELLA CLAY M.D. Performed By: #### BNP, HS T ROP, CBC, CK, CMP #### [facility] [address] COMPREHENSIVE METABOLIC PANEL Collected: 07/05/2024 1 2:00 AM Status: F Source: [facility] TYPE CODE TESTS RESULT OUT OF [...] Pharmacy 65.71 Result Comment: PERFORMED BY : [place] [address] PATHOLOGIST CURRICULUM DEVELOPMENT SPECIALIST ELLA CLAY M.D. Performed By: #### BNP, HS T ROP, CBC, CK, CMP #### [place] [id number] [facility] B-TYPE NATRIURETIC PEPTIDE Collected: 07/05/2024 12:0 0 AM Status: F Source: [facility] TYPE CODE TESTS RESULT OUT OF RANGE REFERENCE UNITS LAB BNP B-Type Natriuretic Peptide 42.0 Normal 5-100 pg/mL Result Comment: PERFORMED BY : [place] [address] PATHOLOGIST CURRICULUM DEVELOPMENT SPECIALIST ELLA CLAY M.D. Performed By: #### BNP, HS T ROP, CBC, CK, CMP #### [address] [address] [place] CREATINE KINASE Collected: 12:00 AM Status: F Source: [facility] TYPE CODE TESTS RESULT OUT OF RANGE REFERENCE UNITS LAB CK Creatine Kinase 113 Normal 30-223 U/L Performed By: #### BNP, HS T ROP, CBC, CK, CMP #### [place] [id number] [facility] TROPONIN I HIGH SENSITIVITY Collected: 07/05/2024 12:00 AM Status: F Source: [facility] TYPE CODE TESTS RESULT OUT OF RANGE REFERENCE UNITS LAB HS TROP Troponin I High Sensitivity 27 High 0-15 Result Comment: The Troponin units of report have been changed to meet the Chest Pain Accreditation requirement, element EC5.M1l2. Troponin units are changed from pg/ml to ng/L. Also, the decimal is removed and results are in whole numbers. PERFORMED BY: [place] [address] PATHOLOGIST CURRICULUM DEVELOPMENT SPECIALIST ELLA CLAY M.D. Performed By: #### BNP, HS T ROP, CBC, CK, CMP #### [place] [id number] [facility] ECG 12 LEAD ECG Observed: 07/04/2024 10:15 PM Status: COMPLETED Source: [facility] [place] [address] Electrocardiograph Report Signed Patient: Pepper Ernandez MR#: [id number] 0 : 1955 Acct:[id number] Age/Sex: 69 / F ADM Date: 07/05/24 Loc: Room: [address] [place] [address] Type: ADM IN Attending Dr: Eliu Schmitz MD Ordering Provider: Trevin Sepulveda Jr, MD Date of Service: 07/04/2405/26/2210 [...] ECGs available Confirmed by TREVIN SEPULVEDA MD ([id number]) on 07/05/2024 10:03:37 PM Referred By: Electronically Signed By: TREVIN SEPULVEDA MD Transcribed By: MUS Signed By Trevin Sepulveda Jr, MD 2203 COVID-19 / FLU A/B / RSV PCR Observed: 0 07/04/2024 12:00 AM Status: F Source: [facility] COVID-19 Cepheid Result Negative for SARS-CoV-2 RNA [...] or Cepheid Disclaimer revoked sooner. PERFORMED BY: [facility] [place] [address] PATHOLOGIST CURRICULUM DEVELOPMENT SPECIALIST ELLA CLAY M.D. Performed By: #### CEPHEID N EG, COVID19 FLU RSV #### [facility] [address] [place] [id number] [facility] CEPHEID COVID PCR NEGATIVE Collected: 0 07/04/2024 12:00 AM Status: F Source: [facility] TYPE CODE TESTS RESULT OUT OF RANGE REFERENCE UNITS LAB CEPHEID NEG Cepheid COVID PCR Negative Negative Negative Result Comment: This is a du plicate Cepheid Xpert Xpress CoV-2/Flu/RSV Plus RNA by RT-PCR result to be used for statistical tracking purpose only. PERFORMED BY: [place] [address] PATHOLOGIST CURRICULUM DEVELOPMENT SPECIALIST ELLA CLAY M.D. Performed By: #### CEPHEID N EG, COVID19 FLU RSV #### [place] [id number] [facility] ALLERGIES DATE TYPE / CODE NAME / CODE REACTION SEVERITY SOURCE 07/04/2024 Drug Allergy/0048407 02(SNOMED CT) No Known Allergies/Q271230498 (RXNORM) Unknown [facility] Drug Class/527490843 (SNOMED CT) NO KNOWN ALLERGIES [facility] ENCOUNTERS ADMIT/DISCHARGE ACCOUNT NUMBER ADMITTING ENCOUNTER CLASS LOCATION SOURCE 10/21/2024/10/22/19 [id number] Ambulatory Buildin 80 [facility] 10/20/2024 [id number] Ambulatory Building:Un k nown [facility] 10/13/2024/10/14/19 [id number] Ambulatory Building:[facility] 09/10/2024/09/11/19 [id number] Ambulatory Building:[facility] 07/15/2024/07/16/19 [id number] Ambulatory Building:[facility] 07/05/2024/07/09/19 [id number] Genie Man [facility] [id number]: 2 [facility] 06/29/2024/06/30/19 [id number] Ambulatory Building:[facility] 01/08/2024/01/08/20 24 [id number] Ambulatory Building:[facility] 12/10/2023/12/10/19 [id number] Ambulatory Building:[facility] Medical [facility] FUNCTIONAL STATUS No Functional Status Records Found EQUIPMENT No Equipment Records Found PAYERS ENCOUNTER GUARANTOR PAYER SUBSCRIBER SOURCE 10/21/2024 PEPPER BOOTH: [place], [place] [address]Vvp: () Primary Insurance:BCBS OUT OF STATE TRADITIONALPolicy Number: [id number] Date:2019-05-03 PEPPER BOOTH: [id number] [place] [address]Rvf: () [facility] Ambulatory [facility] 10/21/2024 Secondary Insurance:[facility] ADVPolicy Number: [id number] Date:2024-03-04 PEPPER BOOTH: [id number] [place], [place] [address]Lzu: () [facility] 10/20/2024 PEPPER BOOTH: [place], [place] [address]Ekx: (HP) Primary Insurance:BLUE ACCESS (PPO)Policy Number: [id number] Date:2015-09-282018-03-03 PEPPER BOOTH: [id number] [place] [address]Qzs: () [facility] 10/20/2024 Secondary Insura nce:BCBS OUT OF STATE PPO/TRUSTPolicy Number: [id number] Date:2018-03-04 - 2019-05-03 PEPPER BOOTH: [id number] [place], [place] [address]Ahy: () [facility] 10/20/2024 Tertiary Insuran ce:[facility] OUT OF STATE TRADITIONALPolicy Number: [id number] Date:2019-05-03 PEPPER CHAVEZ KONSTANTIN: [id number] [place], [place] [address]Ier: (HP) [facility] 10/20/2024 Tertiary Insurance:[facility] ADVPolicy Number: [id number] Date:2024-03-04 PEPPERVALERY CHARLTONKVNG BOOTH: [id number] [facility], [place] [address]Gac: (HP) [facility] 10/13/2024 PEPPER BOOTH: [place], [place] [address]Htf: (HP) Primary Insurance:BSPolicy Number: [id number] Date:2019-05-03 PEPPER BOOTH: [id number] [place] [address] [facility] 10/13/2024 Secondary Insurance:WELL[employer] MEDICAREPolicy Number: [id number] Date:2023-07-11 PEPPER BOOTH: [id number] [place] [address] [facility] 09/10/2024 PEPPER BOOTH: [id number] [place] [address]Sgv: (HP) Primary Insurance:BCBSPolicy Number: [id number] Date:2019-05-03 PEPPER BOOTH: [id number] [place] [address] [facility] 09/10/2024 Secondary Insurance:WELLCARE MEDICAREPolicy Number: [id number] Date:2023-07-11 PEPPER GANNONB: [id number] [place] [address] [facility] 07/15/2024 PEPPER GANNONB: [place], [place] [address]Ojb: (HP) [facility] Insurance[facility]: [id number] Date:2019-05-03 PEPPER GANNONB: [id number] [place] [address] [facility] 07/15/2024 Secondary Insurance:[facility] MEDICAREPolicy Number: [id number] Date:2023-07-11 PEPPER GANNONB: [id number] [place] [address] [facility] 07/05/2024 Pepper Ernandez[address] [place] [address]Psf: (HP) Primary Insurance:[place] /BSPolicy Number: [id number] Date:2024-07-04 Pepper Booth: [id number] [place] [address]Yfr: (HP) [facility] 07/05/2024 Secondary Insurance:Bhakti Ware [facility]: [id number] Date:[id number] [address]XF: Pepper GannonB: [id number] [place] [address]Yyb: (HP) [facility] 07/05/2024 Tertiary Insurance:MedicarePolicy Number: [id number] Date:2024-07-04 Pepper Booth: [id number] [place] [address]Gjh: (HP) [facility] 07/05/2024 Tertiary Insuran ce:Self PayPolicy Number: Effective Date:2024-07-04 NOT GIVENUNK [facility] 06/29/2024 PEPPER GANNONB: [place], [place] [address]Rwj: (HP) Primary Insurance:BCBSPolicy Number: [id number] Date:2019-05-03 PEPPER GANNONB: [id number] [place] [address] [facility] 06/29/2024 Secondary Insurance:[facility] MEDICAREPolicy Number: [id number] Date:2023-07-11 PEPPER BOOTH: [id number] [place], [facility] 01/08/2024 PEPPER GANNONB: [place], [place] [address]Unc: (HP) Primary Insurance:WELLCARE MEDICAREPolicy Number: [id number] Date:2023-07-11 PEPPER GANNONB: [id number] [place] [address] [facility] 12/10/2023 PEPPER GANNONB: [place], [place] [address]Ckq: (HP) Primary Insurance:BCBSPolicy Number: [id number] Date:2019-05-03 PEPPER BOOTH: [id number] [place] [address] [facility] 12/10/2023 Secondary Insurance:WELLCARE MEDICAREPolicy Number: [id number] Date:2023-07-11 PEPPER BOOTH: [id number] [place] [address] [facility] SOCIAL HISTORY No Social History Records Found FAMILY HISTORY No Family History Records Found ADVANCE DIRECTIVES No Advanced Directives Records Found INFORMATION SOURCE DATE CREATED AUTHOR AUTHOR'S BECKY ATION 12/01/2024 OHIP
--- OUTSIDE RECORDS SUMMARY | 2024-11-18 04:21 | XMS_ITS | Continuity of Care Document ---
Author Organization [facility] Address [address] [place] [address] Phone Care Team Providers Care Threading Machine Operator Name Role Phone Jignesh Serna MD Primary Care Provider Jignesh Serna MD Attending Provider Care Teams Patient Care Team Team Status: Active Member Role Status Dates Jignesh Serna MD Primary Care Provider Active Patient Care Team Team Status: Inactive Member Role Status Dates Jignesh Serna MD Primary Care Provider Active S tart: November 18, 2024 End: November 18, 2024 Jignesh Serna MD Attending Provider Active Star t: November 18, 2024 End: November 18, 2024 Chief Complaint and Reason for Visit Chief Complaint Admit Date upper resp. infection November 18 7:50am Allergies, Adverse Reactions, Alerts Allergen Type Severity Reaction Last Updated Verified Status No Known Allergies Allergy Unknown 2024 8:00am Yes Active Social History Smoking Status Status Start Date End Date Date of Observa tion Ex-smoker (finding) [facility] 2024 8:03am Observation Status Observation Response Date of Response Legal Sex Female (finding) Sex Assigned At Female 1955 Family History Relationship Condition Age at Onset Recorded Date/T pavan brother Unknown Diabetes mellitus Unknown father Unknown Malignant neoplasm Unknown Problems Active Problems Medical Problem Onset Date Status Calculus of gallbladder without cholecystitis wi thout obstruction Unknown Active Medicare annual wellness visit, subsequent Unkno wn Active Other eosinophilia Unknown Active Lower extremity edema Unknown Active Abdominal pain, generalized Unknown Acti ve Osteoporosis Unknown Active Dyslipidemia Unknown Active Hypersomnolence Unknown Active Overweight Unknown Active Encounter for long-term (current) use of medicat ions Unknown Active Prediabetes Unknown Active COPD (chronic obstructive pulmonary disease) Unk nown Active GERD (gastroesophageal reflux disease) Unknown Active Tobacco user Unknown Active Hypertension Unknown Active Vitamin D deficiency Unknown Active Nonalcoholic fatty liver Unknown Active Inactive/Resolved Problems Medical Problem Onset Date Status Acute hypoxic respiratory failure Unknown Resolved SOB (shortness of breath) Unknown Resolv ed COPD exacerbation Unknown Resolved Medications Medication Status Dose Units Route Directions Qty Days St art Date Stop Date End Date Instructions Adherence Amlodipine 10 mg tablet Active 10 MG PO Daily 30 2024 11:11a m Complies with drug therapy Spironolact one 25 mg tablet Active 25 MG PO Daily 2024 12:00a m Complies with drug therapy Omeprazole 40 mg capsule,del ayed release(DR/ EC) Active 40 MG PO Daily July 05, 2024 12:00a m Complies with drug therapy Albuterol Sulfate 2.5 mg /3 mL (0.083 %) solution for nebulizatio n Active 2.5 MG INHALA TION Every hour as needed for shortness of breath July 05, 2024 12:00a m Medication Name: Albuterol Sulfate (2.5 MG/ 3 ML); Note: Source Status: Taking; Provider: Dereje Tineo ( ) Complies with drug therapy Amlodipine 5 mg tablet Discont inued 5 MG PO Daily July 05, 2024 12:00a m July 05, 2024 1:52p m Cholecalcif dl (Vitamin D3) (Vitamin D3) 50 mcg (2,000 unit) capsule Active 50 MCG PO Daily July 05, 2024 12:00a m Complies with drug therapy Amlodipine 10 mg tablet Discont inued 10 MG PO Daily July 05, 2024 12:00a m [facility] 2024 11:11 am Prednisone 10 mg tablet Discont inued 10 MG PO As Directed July 08, 2024 12:00a m [facility]2024 8:02a m starting 58- 4tabs x3days, then 3tabs x3days, then 2tabs x3days, then 1tab x3days Azithromyci n 500 mg tablet Discont inued 500 MG PO Daily 3 July 08, 2024 12:00a m [facility]2024 8:01a m next dose due 5/8 Benzonatate 100 mg Capsule Discont inued 100 MG PO Three times daily as needed for Cough 20 July 08, 2024 12:00a m [facility] 2024 8:02a m Ipratropium [place] 42 mcg (0.06 %) [place],Non-A erosol Discont inued 2 SPRAY NASAL Three times daily July 08, 2024 12:00a m 2024 8:02a m for duration of nasal symptoms Guaifenesin 600 mg Tablet Extended Release 12hr Discont inued 1200 MG PO Twice daily as needed for congestion July 08, 2024 12:00a m [facility] 2024 8:02a m available over the counter Fluticasone Propion-Alejo meterol (Advair Diskus) 250-50 mcg/dose blister with device Discont inued 1 INH INHALA TION Twice daily July 08, 2024 12:00a m 2024 8:02a m Vital Signs Vital Reading Result Reference Range Collection Date/Time Height 66 [in_i] November 18, 2024 7:59am Weight 84.82 kg November 18, 2024 7:59am Body Temperature 9.3 [degF] 97.6-99.0 November 022024 7:59am Heart Rate 73 /min 60-100 November 18, 2024 7:59am Respiratory rate 24 /min 12-24 November 022024 7:59am Oxygen saturation by Pulse oximetry 91 % 95-100 November 18, 2024 7:59am BP Systolic 140 mm[Hg] 100-140 November 18, 2024 7:59am BP Diastolic 72 mm[Hg] 60-100 November 18, 2024 7:59am BMI (Body Mass Index) 30.2 kg/m2 2024 7:59am Advance Directives Advance Directive Response Recorded Date/ Time Advance Directives No March 08, 2017 11:00am Insurance Providers Guarantor Mustapha Tineo Address [address] [place] [id number] Contact Info. Home Phone: Payer Policy Id Subscriber's Name Subscriber Id Effectiv e Date Expiration Date [place] /BS [id number] Mustapha Tineo [id number] [employer] [facility] [id number] Mustapha Tineo [id number] Self Pay [id number] Self N/A Encounters Encounter Location(s) Arrival/Admit Date Discharge/Depart Date Provider(s) Departed Physician/Prov ider Office Visit -[facility] Family Medicine [place] November 18, 2024 7:50am November 18, 2024 8:20am Jignesh Serna MD
--- OUTSIDE RECORDS SUMMARY | 2024-12-01 08:32 | XMS_ITS | Clinical Summary ---
Author Organization [facility] Address [address] [facility] [place] [address] Care Team Providers Care Blow Mold Machine Operator Name Role Phone Unavailable Primary Care Provider Unavailabl e Source Comments The following information is NOT included in Care Everywhere downloads:Psychiatric notes, ECG results, Cardiac Rehab notes, Pulmonary Function notes, data from SmartForms (includes but not limited toPregnancy data,audiograms, eye exams, pre-surgical evaluation notes, well-child exam data).[facility] Immunizations Immunization Administration Dates Next Due [facility] SARS-COV-2 (COVID-19 ) vaccine, vector non-replicating, recombinant spike protein-Ad26, preservative free, 0.5 mL (DIF=047) 07/07/2020 Social History Tobacco Use Types Packs/Day Years Used Date Smoking Tobacco: Never Assessed Comments Unknown Sex and Gender Information Value Date Recorded Sex Assigned at Not on file Legal Sex Female 1:28 AM EDT Gender Identity Not on file Sexual Orientation Not on file Plan of Treatment Health Maintenance Due Date Last Done Comments Colonoscopy 1955 Hepatitis C Antibody 1972 Tdap Booster 1972 Hepatitis A (HAV) Vaccine (optional start 19+ years) 0 1973 Tetanus (Td or Tdap) Booster 1973 Mammography 1994 CRC Screening 05/05/1999 Cholesterol 05/05/1999 Cologuard (Stool DNA) 05/05/1999 FIT 05/05/1999 Pneumococcal Vaccine(s) (50+ yrs) (1 of 1 - PCV) 05/04 Shingles (RZV) Vaccine (1 of 2) 2004 Hepatitis B (HBV) Vaccine (optional start 60+ years) 0 2014 Bone Densitometry 05/05/2019 COVID-19 Vaccine (2 - season) 2024 05/ 08/2020 Influenza Vaccine (#1) 2024 RSV vaccine (adult) (1 - 1-dose 75+ series) 2029 Pap Smear Discontinued Insurance MEDICARE SP/UNINSURED on file
--- OUTSIDE RECORDS SUMMARY | 2024-12-01 08:32 | XMS_ITS | Patient Health Record ---
Author Organization [facility] Address [address] [place] [address] Care Team Providers Care Production Administrator Name Role Phone Jignesh Serna Primary Care Provider Javier Cheung Unavailable [phone] Maryellen Kennedy Unavailable Allergies No Known Allergies Results Component Value Reference Range Notes SCC- WRIST 3 VIEW LEFT 21409 Reviewed date:03/10/2024 04:05:14 PM Interpretation: Performing Lab: Notes/Report: SCC- WRIST 3 VIEW LEFT [id number] Reviewed date:03/17/2024 03:44:51 PM Interpretation: Performing Lab: Notes/Report: SCC- WRIST 3 VIEW LEFT [id number] Reviewed date:01/16/2024 10:59:08 AM Interpretation: Performing Lab: Notes/Report: Reason For Referral No Information Social History Tobacco Use: Social History Observation [...] Problem Status W/U Status Risk Notes Problem 89027246 Other intraarticular fracture of lower end of left radius, initial encounter for closed fracture (S52.572A) Active confirmed Problem 71796954 Other intraarticular fracture of lower end of left radius, subsequent encounter for closed fracture with routine healing (S52.572D) Active confirmed Problem 44113779 Displaced fractu re of left ulna styloid process, subsequent encounter for closed fracture with routine healing (S52.612D) Active confirmed Problem 03412976 Closed displaced fracture of styloid process of left ulna, initial encounter (S52.612A) Active confirmed Vital Signs Height 5'6 in 02/03/2024 Weight 160 lbs 02/03/2024 BMI 25.82 02/03/2024 Encounters Encounter Location Date Provider Diagnosis [facility] [place] [address] [place] [address] 12/09/2023 Maryellen Marcia Closed Colles' fracture of left radius, initial encounter S52.532A and Other intraarticular fracture of lower end of left radius, initial encounter for closed fracture S52.572A [facility] [place] [address] [address] [address] [place] [address] 01/06/2024 Javier Callaway Displaced fracture o f left ulna styloid process, subsequent encounter for closed fracture with routine healing S52.612D and Other intraarticular fracture of lower end of left radius, subsequent encounter for closed fracture with routine healing S52.572D [facility] [place] [address] [address] [place] [address] [place] [address] 02/03/2024 Javier Callaway Displaced fracture o f left ulna styloid process, subsequent encounter for closed fracture with routine healing S52.612D and Other intraarticular fracture of lower end of left radius, subsequent encounter for closed fracture with routine healing S52.572D [facility] [place] [address] [address] [place] [address] [place] [address] 03/16/2024 Maryellen [facility]ant[facility] Other intraarticular fracture of lower end of left radius, subsequent encounter for closed fracture with routine healing S52.572D and Displaced fracture of left ulna styloid process, subsequent encounter for closed fracture with routine healing S52.612D Assessments Encounter Date Diagnosis (ICD Code) Assessment Notes Treatment Notes Treatment Clinical Notes Section Notes 12/09/2023 Other intraarticular fracture of lower end [...] fracture with routine healing (ICD-10 - S52.612D) 12/09/2023 Other Patient doing w ell overall [...] WEEKS 12/09/2023 SCC- WRIST 3 VIEW LEFT [id number] 12/09/2023 Insurance Providers Payer Name Payer Address Payer Phone Subscriber Number Group Number Insured Name Patient Relationship to Insured Coverage Start Date Coverage End Date Medicare [facility] [address] [place] [address] [id number] RADHA ERNANDEZ Self - patient is the insured Medical (General) History Medical History History ICD Code Asthma/COPD: yes Respiratory problems: Surgical History Surgery Date(Month/Year) ORIF of a left distal radius fracture
--- OUTSIDE RECORDS SUMMARY | 2024-12-01 08:32 | XMS_ITS | Encounter Summary ---
Author Organization [facility] Address [address] [place] [address] Care Team Providers Care Fur Repair Inspector Name Role Phone Unavailable Primary Care Provider Unavailabl e Encounter Details Date Type Department Care Team (Late st Contact Info) Description 03/03/2021 Abstract PATIENT ACUITY SCORE Social History Tobacco Use Types Packs/Day Years [...]
--- OUTSIDE RECORDS SUMMARY | 2024-12-01 08:32 | XMS_ITS | Clinical Summary ---
Author Organization [facility] Address [id number] [address] [place] [address] Care Team Providers Care Director Of Market Analysis Name Role Phone Jignesh Serna MD Primary Care Provider [phone] Allergies No known active allergies Medications amLODIPine (NORVASC) 5 mg tablet Take 1 tablet (5 mg total) by mouth in the morning. Active omeprazole (PriLOSEC) 40 mg capsule Take 1 capsule (40 mg total) by mouth in the morning. Active albuterol (PROVENTIL HFA;VENTOLIN HFA) 90 mcg/actuation inhaler Inhale 2 puffs every 6 (six) hours as needed for wheezing. Active cholecalciferol , vitamin D3, 2,000 units capsule Take by mouth in the morning. 06/24/2020 Active albuterol (PROVENTIL,VENT SOFIE) 2.5 mg /3 mL (0.083 %) nebulizer solution 07/07/2020 Active spironolactone (ALDACTONE) 25 mg tablet Take 1 tablet (25 mg total) by mouth in the morning. Active Active Problems No known active problems Encounters Date Type Department Care Team Description 11/20/2024 Telephone [facility] [address] [facility] [place] [address] Enriqueta Colon CMA 11/05/2024 Telephone [facility] [address] [place] [address] Anitra Tan CMA 10/28/2024 Telephone [facility] [address] [place] [address] Anitra Tan CMA 10/21/2024 10:00 AM EDT Office Visit [facility] [address] [place] [address] Jose Raul Beatty DO Chest pain, unspecified type (Primary Dx); Bilateral upper abdominal pain; Left lower quadrant abdominal pain; Asymptomatic cholelithiasis 10/21/2024 Travel 10/20/2024 Orders Only [facility] [address] [facility] [address] Ref Prov, Not In System 09/21/2024 10:35 AM EDT Ancillary Procedure [facility] [address] [place] [id number] Pain from Last 3 Months Family [...] Fall Risk Screening 05/05/2019 Colonoscopy 09/08/2023 09/07/2020, 10/2018, 10/09/2018, Additional history exists COVID-19 Vaccine (2024-2 6 season) 2024 03/20/2021, 07/07/2020 Influenza Vaccine 11/02/2024 Adult BMI [...] ORDERABLES Fin al Result Performing Organization Address [facility] Co de Phone Number MANUALLY TRANSCRIBED RESULTS * Multiple labs (09/21/2024) us Not In System Ref Prov FL IMAGING Edited Re sult - Final Performing Organization Address [facility] Co de Phone Number MANUALLY TRANSCRIBED RESULTS * Colonoscopy (09/07/2020) us Jose Raul Beatty DO GI PROCEDURE ORDERABLES Fin al Result MANUALLY TRANSCRIBED RESULTS from Last 3 Months or Most Recently Relevant to Health Maintenance Insurance [employer] Care Teams Director Of Market Analysis Relationship Specialty Start Date End Date Jignesh Serna MD PCP - General Family Medicine 7/31/19
--- OUTSIDE RECORDS SUMMARY | 2024-12-01 08:32 | XMS_ITS | Encounter Summary ---
Author Organization [facility] Address [id number] [address] [place] [address] Care Team Providers Care Advocacy Director Name Role Phone Jignesh Serna MD Primary Care Provider [phone] Encounter Details Date Type Department Care Team (Late st Contact Info) Description 10/17/2018 Telephone [facility] [address] [place] [id number] Anitra Tan CMA Social History Tobacco Use [...] on filedocumented in this encounter Care Teams Advocacy Director Relationship Specialty Start Date End Date Jignesh Serna MD PCP - General Family Medicine 10/01/18 documented as of this encounter
--- OUTSIDE RECORDS SUMMARY | 2024-12-01 08:32 | XMS_ITS | Encounter Summary ---
Author Organization [employer] [facility] [employer] Address [id number] [address] [place] [address] Care Team Providers Care Profile Stitching Machine Operator Name Role Phone Jignesh Serna MD Primary Care Provider [phone] Encounter Details Date Type Department Care Team (Late st Contact Info) Description 11/20/2024 Telephone [facility] [address] [place] [address] Enriqueta Colon CMA Social History Tobacco Use Types Packs/Day [...] encounter Miscellaneous Notes * Telephone Encounter - Enriqueta Colon CMA - 11/20/2024 7:25 AM EDT After following up regarding Dr. Beatty's orders for CT chest with contrast, CT abdomen and pelvis, and HIDA scan ordered for patient on 10/21/24, patient's insurance was out of network with [facility]. Testing was cancelled. Will contact patient to see if she would like to complete testing at another hospital system. Will inform Dr. Beatty. * Telephone Encounter - Enriqueta Colon CMA - 11/20/2024 7:25 AM EDT Spoke with patient regarding testing ordered by Dr. Beatty on 10/21/24. Patient is unable to get testing done at [facility] due to insurance issues. Patient has scheduled testing to be completed at [facility]. documented in this encounter Plan of Treatment Not on file documented as of this encounter Visit Diagnoses Not on filedocumented in this encounter Care Teams Profile Stitching Machine Operator Relationship Specialty Start Date End Date Jignesh Serna MD PCP - General Family Medicine 10/01/18 documented as of this encounter
--- NOTE | 2024-12-01 08:42 | CT_ITS ---
The [address] [address] Patient Name: RADHA ERNANDEZ MRN: [id number] date: 1955 Sex: F Assigned Patient Location: CT Current Patient Location: CT Accession/Order Number: [id number] Exam Date: 12/01/2024 09:52 Report Date: 12/01/2024 11:07 At the request of: FRANCESCA MUNSON MD Procedure: CT chest w con CT CHEST, ABDOMEN AND PELVIS WITH CONTRAST COMPARISON: CT chest 08/16/2020 and right upper quadrant ultrasound 09/21/2024 CLINICAL DATA: Upper abdominal pain for a couple months. Spiral images were obtained through the chest, abdomen and pelvis following oral and 100 mL of Omnipaque 300. Images of the chest were reviewed using both narrow and wide window settings. This CT exam was performed using one or more following dose reduction techniques: Automated exposure control, adjustment of the mA and/or kV according to patient size, or use of iterative reconstruction technique. The heart is borderline prominent. There is no pericardial effusion. No aortic aneurysm is seen. There are similar small benign-appearing mediastinal lymph nodes. A large hiatal hernia is again seen. There is mild atelectasis and/or scarring. No developing consolidation, pleural effusion or pneumothorax is seen. No developing pulmonary nodularity is noted. The bony structures are intact. No calcified gallstones are noted. Fatty infiltration of the liver is suspected. No hepatic masses are seen. The spleen and pancreas show no acute findings. Multiple small bilateral adrenal nodules are again visualized. There are symmetric renal nephrograms, without hydronephrosis. There is mild atherosclerotic plaque involving the aorta and iliac arteries. There are tiny abdominal lymph nodes. No ascites is seen. The small bowel loops are normal caliber. Stool is visualized along the colon. There is slight dextroscoliotic curvature. Images through the pelvis show no dilated small bowel. The appendix is not identified. There is moderate distal colonic stool. There are sigmoid diverticula. No active inflammation is seen. The uterus is dextroverted. No adnexal cysts are present. The urinary bladder shows no abnormalities for the degree of distention. There is no ascites. CT/CT abdomen pelvis w con IMPRESSION: LARGE HIATAL HERNIA. FATTY LIVER. SIMILAR SMALL ADRENAL NODULES. NO BOWEL OR URINARY TRACT OBSTRUCTION. DIVERTICULOSIS. NO ACUTE INTRATHORACIC, ABDOMINAL OR PELVIC FINDINGS. Impression dictated by: Aure Wang M.D. 12/01/2024 11:07 AM Dictation Location: [place] [address] Electronically authenticated by: [id number] Y Date: 12/01/2024 11:07
--- NOTE | 2024-12-01 08:42 | CT_ITS ---
The [address] [address] Patient Name: RADHA ERNANDEZ MRN: [id number] date: 1955 Sex: F Assigned Patient Location: CT Current Patient Location: CT Accession/Order Number: [id number] Exam Date: 12/01/2024 09:52 Report Date: 12/01/2024 11:07 At the request of: FRANCESCA MUNSON MD Procedure: CT chest w con CT CHEST, ABDOMEN AND PELVIS WITH CONTRAST COMPARISON: CT chest 08/16/2020 and right upper quadrant ultrasound 09/21/2024 CLINICAL DATA: Upper abdominal pain for a couple months. Spiral images were obtained through the chest, abdomen and pelvis following oral and 100 mL of Omnipaque 300. Images of the chest were reviewed using both narrow and wide window settings. This CT exam was performed using one or more following dose reduction techniques: Automated exposure control, adjustment of the mA and/or kV according to patient size, or use of iterative reconstruction technique. The heart is borderline prominent. There is no pericardial effusion. No aortic aneurysm is seen. There are similar small benign-appearing mediastinal lymph nodes. A large hiatal hernia is again seen. There is mild atelectasis and/or scarring. No developing consolidation, pleural effusion or pneumothorax is seen. No developing pulmonary nodularity is noted. The bony structures are intact. No calcified gallstones are noted. Fatty infiltration of the liver is suspected. No hepatic masses are seen. The spleen and pancreas show no acute findings. Multiple small bilateral adrenal nodules are again visualized. There are symmetric renal nephrograms, without hydronephrosis. There is mild atherosclerotic plaque involving the aorta and iliac arteries. There are tiny abdominal lymph nodes. No ascites is seen. The small bowel loops are normal caliber. Stool is visualized along the colon. There is slight dextroscoliotic curvature. Images through the pelvis show no dilated small bowel. The appendix is not identified. There is moderate distal colonic stool. There are sigmoid diverticula. No active inflammation is seen. The uterus is dextroverted. No adnexal cysts are present. The urinary bladder shows no abnormalities for the degree of distention. There is no ascites. CT/CT chest w con IMPRESSION: LARGE HIATAL HERNIA. FATTY LIVER. SIMILAR SMALL ADRENAL NODULES. NO BOWEL OR URINARY TRACT OBSTRUCTION. DIVERTICULOSIS. NO ACUTE INTRATHORACIC, ABDOMINAL OR PELVIC FINDINGS. Impression dictated by: Aure Wang M.D. 12/01/2024 11:07 AM Dictation Location: [place] [address] Electronically authenticated by: [id number] Y Date: 12/01/2024 11:07
[2024-12-01 08:47] LABS: Estimated GFR (African America >60 (>=60 mL/min/1.73m^2); Estimated GFR (Non-African Ame >60 (>=60 mL/min/1.73m^2)
== END 2024-12-01 08:30 | disposition home or self-care (01) ==
LOC: CT 08:29
PROVIDERS: PCP Family Medicine; Visit Provider Surgery
DX: R07.9 Chest pain, unspecified (principal); R10.11 Right upper quadrant pain; R10.12 Left upper quadrant pain; R10.32 Left lower quadrant pain; K44.9 Diaphragmatic hernia without obstruction or gangrene; K76.0 Fatty (change of) liver, not elsewhere classified; K57.90 Diverticulosis of intestine, part unspecified, without perforation or abscess without bleeding
CPT/HCPCS: 36415; 71260; 74177; 82565; Q9967

== ENCOUNTER 2024-12-10 08:20 | Outpatient (OUT) | payer OTHER, BC, SELFPAY ==
--- NOTE | 2024-12-10 08:20 | NM_ITS ---
The [address] [address] Patient Name: RADHA ERNANDEZ MRN: [id number] date: 1955 Sex: F Assigned Patient Location: [place] Current Patient Location: [place] Accession/Order Number: [id number] Exam Date: 12/10/2024 08:20 Report Date: 12/10/2024 14:13 At the request of: FRANCESCA MUNSON MD Procedure: NM hepatobiliary w pharm HIDA SCAN WITH CCK CLINICAL HISTORY: ASYMPTOMATIC CHOLELITHIASIS COMPARISON: Ultrasound 09/21/2024 TECHNIQUE:Following the intravenous administration of 4.8 mCi of technetium 99m labeled Mebrofenin, anterior imaging of the abdomen was performed out to 60 minutes.8 ounces of the tissue was given the calculated gallbladder ejection fraction. FINDINGS: There is uniform distribution of radionuclide within the liver. Normal gallbladder activity is seen within the first 60 minutes. The gallbladder ejection fraction is 0%. Normal is greater than 40%. TN/TN hepatobiliary w pharm IMPRESSION: NO GALLBLADDER CONTRACTION AFTER ENSURE. 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 Impression dictated by: Quentin Foley Jr., DDoraODora 12/10/2024 2:13 PM Dictation Location: [place] [address] Electronically authenticated by: [id number] Y Date: 12/10/2024 14:13
--- OUTSIDE RECORDS SUMMARY | 2024-12-10 08:28 | XMS_ITS | CCD ---
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 Name Role Phone PHYSICIAN, DEFAULT Unavailable Unavailable PHYSICIAN, DEFAULT Unavailable Unavailable PROVIDER, UNKNOWN Attending Unavailable PROVIDER, UNKNOWN Admitting Unavailable Rivka Reyez Unavailable DR JIGNESH SAEZ Primary Care Unavailable ALIYA .TYRON Admitting Unavailable TYRON DAIVS Attending Unavailable NADJA, DR JIGNESH Zhou Consulting Unavailable NADJA, DR JIGNESH Zhou Attending Unavailable NADJA, DR JIGNESH Zohu Admitting Unavailable NADJA, DR JIGNESH Zhou Primary Care Unavailable Jignesh Saez MD Primary Care Provider Jignesh Saez Primary Care Provider [phone] [place] Referring Unavailab le JIGNESH SAEZ Primary Care Unavailable GIDEON RUELAS Attending Unavailable Trevin Sepulveda MD Emergency Provider Jignesh Saez MD Primary Care Provider [phone] Genie Man MD Admit Provider [phone] Genie Man MD Attending Provider Francesca Barbosa DO Attending Provider JIGNESH SAEZ Attending Unavailable JIGNESH SAEZ Attending Unavailable JIGNESH SAEZ Attending Unavailable JIGNESH SAEZ Attending Unavailable JIGNESH SAEZ Attending Unavailable JIGNESH SAEZ Attending Unavailable Jignesh Saez MD Primary Care Provider JIGNESH SAEZ Referring Unavailable JIGNESH SAEZ Primary Care Unavailable JIGNESH SAEZ Referring Unavailable JIGNESH SAEZ Primary Care Unavailable FRANCESCA MUNSON Attending Unavailable Genie Man Admitting Unavailable Francesca Barbosa Attending Unavailable Jignesh Saez Primary Care Unavailable Jignesh Saez MD Primary Care Provider Jignesh Saez MD Attending Provider Medications Current Medications Medication Drug Class(es) Dates Sig (Normalized) Sig (Original) albuterol 0.83 mg/ml inhalation solution (20 sources) beta2-Adrenergic Agonist Start: 10-21-2024 albuterol (2.5 MG/3ML) 0.083% nebulizer solution Indications: Chronic obstructive pulmonary disease with acute exacerbation (HCC) Take 3 mL (2.5 mg) by nebulization every 4 (four) hours if needed for wheezing or shortness of breath 150 mL 2 10/21/2024 Active Start: 02-18-2023 take 2 puff(s) by [...] as needed. 0 02/18/2023 Active Start: 07-07-2020 albuterol (PRO VENTIL,VENTOLIN) 2.5 mg /3 mL (0.083 %) nebulizer solution 07/07/2020 Active Start: 07-07-2020 End: 06-29-2024 albuterol (2.5 MG/3ML) [...] Active alendronic acid 70 mg oral tablet (19 sources) Bisphosphonate Start: 01-07-2024 take 1 tablet [...] July 05, 2024 1:52pm Start: 10-07-2023 End: 11-05-2024 take 1 tablet by mouth once daily Amlodipine 10 mg tablet Active 10 MG PO Daily November 05, 2024 11:11am Complies with drug therapy amlodipine besyl ate (AMLODIPINE ORAL) Take by mouth. 0 Active take 1 tablet by angela th in the morning amLODIPine (Norvasc) 10 MG tablet Take 10 mg by mouth in the morning. 0 Active amLODIPine Besyl ate Active Arnuity Ellipta (1 source) Arnuity Ellipta Active cholecalciferol 0.05 mg oral capsule (20 sources) Vitamin D Start: 07-05-2024 take 1 capsule by mouth once daily Cholecalciferol (Vitamin D3) (Vitamin D3) 50 mcg (2,000 unit) capsule Active 50 MCG PO Daily July 05, 2024 12:00am Complies with drug therapy Start: 07-22-2020 End: 10-21-2024 take 1 tablet by mouth once daily cholecalciferol (Vitamin D-3) 50 MCG (2000 UT) tablet Indications: Vitamin D deficiency, unspecified , Vitamin D deficiency TAKE 1 TABLET BY MOUTH EVERY DAY 30 tablet 5 08/10/2024 Active Start: 06-24-2020 cholecalcifero l, vitamin D3, [...] / salmeterol 0.05 mg/actuat dry powder inhaler (14 sources) Corticosteroid, beta2-Adrenergic Agonist Start: 07-08-2024 Fluticasone-Salm eterol 250-50 MCG/ACT aerosol powder Inhale 1 Inhalation Daily 07/08/2024 Active Start: 07-08-2024 End: 11-18-2024 Fluticasone Propion-Salmeter ol (Advair Diskus) 250-50 mcg/dose blister with device Discontinued 1 INH INHALATION Twice daily 60 July 08, 2024 12:00am November 18, 2024 8:02am Start: 07-08-2024 Fluticasone Pr opion-Salmeterol (Advair Diskus) [...] (Edema) 30 tablet 2 08/19/2024 10/13/2024 Discontinued levoFLOXacin 750 mg oral tab let (2 sources) Quinolone Antimicrobial S t a r t : 0 [...] ointment (1 source) RNA Synthetase Inhibitor Antibacterial S t a r t : 0 [...] take 1 capsule by mouth once daily Omeprazole 40 mg capsule,delayed release(DR/EC) Active 40 MG PO Daily July 05, 2024 12:00am Complies with drug therapy Omeprazole Activ e predniSONE 10 mg oral tablet (17 sources) Start: 10-22-2024 take 6 tablets by mouth once daily, [...] PO daily x 3 days 39 tablet 10/22/2024 Active Start: 07-08-2024 End: 11-18-2024 Prednisone 10 mg tablet Discontinued 10 MG PO As Directed July 08, 2024 12:00am November 18, 2024 8:02am starting 58- 4tabs x3days, then 3tabs x3days, [...] Feb, Not-Taking spironolactone 25 mg oral tablet (14 sources) Aldosterone Antagonist Start: 09-10-2024 take 1 tablet by mouth once daily Spironolactone 25 mg tablet Active 25 MG PO Daily November 05, 2024 12:00am Complies with drug therapy varenicline 1 mg oral tablet (17 sources) [...] 3 mL by inhalation every six hours Ipratropium-[place] rol 0.5-2.5 (3) MG/3ML 3 ml Inhalation every 6 hrs Mar, Not-Taking azithromycin 500 mg oral tablet (5 sources) Macrolide Antimicrobial Start: 07-08-2024 End: 11-18-2024 Azithromycin 500 mg tablet Discontinued 500 MG PO Daily 3 July 08, 2024 12:00am November 18, 2024 8:01am next dose due 07/09 Start: 03-09-2024 End: 06-29-2024 take 2 tablets by mouth once daily azithromycin (Zithromax) 250 MG tablet Indications: Upper respiratory tract infection, unspecified type 2 PO once a day on day #1, then 1 PO daily on days 2-5 6 tablet 03/09/2024 06/29/2024 Discontinued benzonatate 100 mg oral capsule (5 sources) Non-narcotic Antitussive Start: 07-08-2024 End: 11-18-2024 take 1 capsule by mouth three times daily as needed for cough Benzonatate 100 mg Capsule Discontinued 100 MG PO Three times daily as needed for Cough 20 July 08, 2024 12:00am November 18, 2024 8:02am cefdinir 300 mg oral capsule (3 sources) [...] / neomycin 3.5 mg/ml / polymyxin b [id number] unt/ml ophthalmic suspension (1 source) Aminoglycoside Antibacterial, Polymyxin-class Antibacterial, Corticosteroid Start: 10-03-2016 take 2 drop(s) into the eye(s) three times daily Maxitrol [id number] 2 drops into affected eye Ophthalmic Three times a day for 7 days Oct, Not-Taking 30 actuat fluticasone furoate 0.2 mg/actuat / vilanterol 0.025 mg/actuat dry powder inhaler (2 sources) Corticosteroid, beta2-Adrenergic Agonist Start: 07-18-2018 End: 10-21-2024 take 1 puff(s) by mouth once daily BREO ELLIPTA 200-25 mcg/dose blister with device INHALE 1 PUFF BY MOUTH EVERY DAY 07/18/2018 10/21/2024 Discontinued 12 hr guaiFENesin 600 mg extended release oral tablet (2 sources) Start: 07-08-2024 End: 11-18-2024 take 1 tablet by mouth twice daily as needed for congestion Guaifenesin 600 mg Tablet Extended Release 12hr Discontinued 1200 MG PO Twice daily as needed for congestion July 08, 2024 12:00am November 18, 2024 8:02am available over the counter ipratropium bromide 0.042 mg/actuat metered dose nasal spray (2 sources) Anticholinergic Start: 07-08-2024 End: 11-18-2024 Ipratropium [place] 42 mcg (0.06 %) [place],Non-Aeroso l Discontinued 2 SPRAY NASAL Three times daily July 08, 2024 12:00am November 18, 2024 8:02am for duration of nasal symptoms methylPREDNISolone (1 source) Corticosteroid Start: 03-31-2017 Depo-Medrol [...] Problem Date Documented Date Episodic/Chronic Abdominal pain (20 sources) Generalized abdominal pain; Translations: [Generalized abdominal pain] Onset: 09-10-2024 09-10-2024 Episodic Biliary tract disease (11 sources) Cholelithiasis without obstruction; Translations: [Calculus of gallbladder without cholecystitis without obstruction] Onset: 10-13-2024 10-13-2024 Episodic Chronic obstructive pulmonary disease and bronchiectasis (20 sources) Acute exacerbation of chronic obstructive airways disease; Translations: [Chronic obstructive pulmonary disease with (acute) exacerbation] Onset: 02-19-2023 02-19-2023 Chronic Diabetes mellitus without complication (20 sources) Prediabetes; Translations: [Prediabetes] Onset: 04-27-2022 02-19-2023 Episodic Diseases of white blood cells (20 sources) [...] Onset: 04-27-2022 02-19-2023 Chronic Nonspecific chest pain (4 sources) Chest pain; Translations: [Chest pain, unspecified] Onset: 10-21-2024 10-21-2024 Episodic Nutritional deficiencies (20 sources) Vitamin D deficiency, unspecified; Translations: [Vitamin D deficiency] Onset: 04-24-2022 Chronic Osteoporosis (20 sources) Senile osteoporosis; Translations: [Age-related osteoporosis without current pathological fracture] Onset: 12-10-2023 01-07-2024 Chronic Other aftercare (1 source) Other snf (current) drug therapy; Translations: [OTH SNF CURRENT DRUG THERAPY] Onset: 04-27-2022 Episodic Other aftercare (20 sources) Long-term current use of drug therapy; Translations: [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) drug therapy] Onset: 01-08-2024 01-08-2024 Episodic Other eye disorders (1 source) Ptosis of eyelid; Translations: [Unspecified ptosis of bilateral eyelids] 10-09-2023 Episodic Other liver diseases (6 sources) Non-alcoholic fatty liver disease without non-alcoholic steatohepatitis; Translations: [Fatty (change of) liver, not elsewhere classified] Onset: 10-13-2024 10-13-2024 Chronic Other lower respiratory disease (12 sources) Dyspnea; Translations: [Shortness of breath] Onset: [...] nutritional; endocrine; and metabolic disorders (1 source) Overweight; Translations: [Overweight] 11-17-2024 Episodic Residual codes; unclassified (20 sources) Hypersomnia; Translations: [Hypersomnia, unspecified] Onset: 02-19-2023 02-19-2023 Chronic Residual codes; unclassified (20 sources) Edema of lower extremity; Translations: [Localized edema] Onset: 02-19-2023 02-19-2023 Episodic Residual codes; unclassified (20 sources) Tobacco user; Translations: [Tobacco use] Onset: 02-19-2023 02-19-2023 Episodic Residual codes; unclassified (4 sources) Postmenopausal state; Translations: [Asymptomatic menopausal state] Onset: 12-10-2023 12-10-2023 Episodic Residual codes; unclassified (1 source) Pain, unspecified; Translations: [Pain, unspecified] Onset: 10-20-2024 Episodic Respiratory failure; insufficiency; arrest (adult) (18 sources) Acute respiratory failure; Translations: [Acute respiratory failure with hypoxia] Onset: 07-15-2024 07-05-2024 Episodic Unclassified (1 source) A [facility] screening has identified you as FRAIL or [...] Four Ways to Beat the Frailty Risk [email or web address]/[email or web address] l-nyonez-qbif-ways-to- txha-lsy-cjm ilty-risk 07-08-2024 Unclassified (1 source) Cholelithiasis Onset: 10-21-2024 Past or Other Problems Problem Classification Problem Date Documented Da te Episodic/Chronic Fracture of upper limb (20 sources) Closed Colles' fracture; Translations: [Colles' fracture of left radius, subsequent encounter for closed fracture with routine healing] Onset: 12-10-2023 Resolved: 01-08-2024 12-10-2023 Episodic Mood disorders (17 sources) Mood disorders Onset: 01-08-2024 01-08-2024 Other nutritional; endocrine; and metabolic disorders (20 sources) Body mass index 25-29 - overweight; Translations: [Overweight] Onset: 04-11-2023 07-11-2023 Episodic Results Test Name Value Interpretation Reference Range Facility Creatinine includes GFR, ser umon 12-01-2024 External Creatinine 0.89 [facility] CA ECHO DOPPLER COMPLETEon 0 10-22-2024 [place] [address] Cardiology Report Signed Patient: RADHA ERNANDEZ MR#: [id number] : 1955 Acct:[id number] Age/Sex: 69 / F ADM Date: 10/22/24 Loc: CARD Attending Dr: Jignesh Saez M.D. Ordering Physician: Jignesh Saez M.D. Date of Service: 10/22/24 Procedure(s): CA echo doppler complete Accession Number(s): [id number] cc: Jignesh Saez M.D. Patient Name: RADHA ERNANDEZ MR#: [id number] : 1955 Exam Date: 10/22/2024 Ordering Doctor: DR JIGNESH SAEZ . ECHOCARDIOGRAM REPORT PROCEDURE: CA ECHO DOPPLER COMPLETE INDICATIONS: Shortness of breath, edema, hypertension, COPD COMPARISON: None. DESCRIPTION: COMPLETE ECHOCARDIOGRAM Real-time transthoracic echocardiography with 2D, M-mode, spectral and color flow Doppler performed. QUALITY: Technical quality was good. LEFT VENTRICLE: Normal chamber size. Normal left ventricular wall thickness. Calculated left ventricular ejection fraction is 55%. LV EF: Global left ventricular systolic function is normal; visually estimated ejection fraction is 55 to 60%. No obvious wall motion abnormality. DIASTOLIC: Diastolic function is indeterminate. ATRIAL SEPTUM: Visually appears intact. LEFT ATRIUM: Normal chamber size. RIGHT ATRIUM: Normal chamber size. RIGHT VENTRICLE: Normal chamber size. Normal right ventricular systolic function. TRICUSPID VALVE: Normal mobility and thickness. No stenosis with mild regurgitation. Doppler studies reveal mildly (35-45) elevated right sided pressures. RVSP 36 mmHg MITRAL VALVE: Normal mobility and thickness. No evidence of mitral valve stenosis. There is no mitral annular calcification. No mitral regurgitation. AORTIC VALVE: Normal trileaflet appearance. Mildly calcified aortic valve. Normal leaflet mobility. No evidence of aortic valve stenosis. DVI 0.5, JOSE 1.7 cm2, Vmax 1.94 m/s. Trivial aortic regurgitation. AORTIC ROOT: Normal diameter and appearance. Aortic arch is normal in size. PULMONIC VALVE: Normal thickness and mobility. No stenosis. Trivial regurgitation. PERICARDIUM: No evidence of pericardial effusion. IVC: Collapses with inspiration. CONCLUSION: 1. Global left ventricular systolic function is normal; visually estimated ejection fraction is 55 to 60% 2. Normal right ventricular size and systolic function 3. Diastolic function is indeterminate 4. Mild tricuspid regurgitation 5. Mildly elevated right sided pressures; RVSP 36 mmHg 6. No significant valvular abnormalities Adult Echocardiography Procedure Report Left Ventricle LVEDD (3.7 - 5.6 cm): 4.24 cm LVESD (2.2 - 4.0 cm): 2.71 cm LVIVS thickness (0.6 - 1.2 cm): 0.89 cm LVPW thickness (0.5 - 1.0 cm): 0.85 cm e': 0.10 m/s E - e': 8.91 LVOT Max Gradient: 3.79 mm[Hg] LVOT Area (cm2): 0.97 m/s Peak Velocity (LVOT): 0.97 m/s Mean Velocity (LVOT): 0.63 m/s LVOT Diameter 1.98 cm Left Ventricular Ejection Fraction: 55.09 % Left Atrium LA Volume Index (2D A2C): 29.92 ml/m2 Left Atrium Systolic Dimension: 2.64 cm Mitral Valve MV E to A Ratio: 1.06 Mitral Valve A-Wave Peak Velocity: 0.80 m/s Mitral Valve E-Wave Peak Velocity: 0.85 m/s Right Ventricle Aorta AO Root Diam: 3.04 cm Aortic Valve AoV Area (Peak Kyler): 1.54 cm2, 1.68 cm2 AoV Area (VTI): 1.71 cm2, 1.85 cm2 Peak Velocity(Antegrade Flow): 1.78 m/s, 1.70 m/s, 1.94 m/s Peak Gradient(Antegrade Flow): 12.63 mm[Hg], 11.50 mm[Hg], 15.04 mm[Hg] Mean Velocity(Antegrade Flow): 1.14 m/s, 1.14 m/s, 1.29 m/s Mean Gradient(Antegrade Flow): 6.08 mm[Hg], 6.11 mm[Hg], 7.33 mm[Hg] Velocity Time Integral: 34.77 cm, 35.25 cm, 37.79 cm Tricuspid Valve Peak Velocity (Regurgitant Flow): 2.86 m/s Pulmonic Valve Peak Gradient: 2.49 mm[Hg], 2.17 mm[Hg] Right Atrium Right Atrium Systolic Pressure: 19.17 ml, 19.17 ml Dictated by: Chad Barros (more content not included)... [facility] Radiology, Radiologist, MD - 10/22/2024 [place] [address] Cardiology Report Signed Patient: RADHA ERNANDEZ MR#: [id number] : 1955 Acct:[id number] Age/Sex: 69 / F ADM Date: 10/22/24 Loc: CARD Attending Dr: Jignesh Saez M.D. Ordering Physician: Jignesh Saez M.D. Date of Service: 10/22/24 Procedure(s): CA echo doppler complete Accession Number(s): [id number] cc: Jignesh Saez M.D. Patient Name: RADHA ERNANDEZ MR#: [id number] : 1955 Exam Date: 10/22/2024 Ordering Doctor: DR JIGNESH SAEZ . ECHOCARDIOGRAM REPORT PROCEDURE: CA ECHO DOPPLER COMPLETE INDICATIONS: Shortness of breath, edema, hypertension, COPD COMPARISON: None. DESCRIPTION: COMPLETE ECHOCARDIOGRAM Real-time transthoracic echocardiography with 2D, M-mode, spectral and color flow Doppler performed. QUALITY: Technical quality was good. LEFT VENTRICLE: Normal chamber size. Normal left ventricular wall thickness. Calculated left ventricular ejection fraction is 55%. LV EF: Global left ventricular systolic function is normal; visually estimated ejection fraction is 55 to 60%. No obvious wall motion abnormality. DIASTOLIC: Diastolic function is indeterminate. ATRIAL SEPTUM: Visually appears intact. LEFT ATRIUM: Normal chamber size. RIGHT ATRIUM: Normal chamber size. RIGHT VENTRICLE: Normal chamber size. Normal right ventricular systolic function. TRICUSPID VALVE: Normal mobility and thickness. No stenosis with mild regurgitation. Doppler studies reveal mildly (35-45) elevated right sided pressures. RVSP 36 mmHg MITRAL VALVE: Normal mobility and thickness. No evidence of mitral valve stenosis. There is no mitral annular calcification. No mitral regurgitation. AORTIC VALVE: Normal trileaflet appearance. Mildly calcified aortic valve. Normal leaflet mobility. No evidence of aortic valve stenosis. DVI 0.5, JOSE 1.7 cm2, Vmax 1.94 m/s. Trivial aortic regurgitation. AORTIC ROOT: Normal diameter and appearance. Aortic arch is normal in size. PULMONIC VALVE: Normal thickness and mobility. No stenosis. Trivial regurgitation. PERICARDIUM: No evidence of pericardial effusion. IVC: Collapses with inspiration. CONCLUSION: 1. Global left ventricular systolic function is normal; visually estimated ejection fraction is 55 to 60% 2. Normal right ventricular size and systolic function 3. Diastolic function is indeterminate 4. Mild tricuspid regurgitation 5. Mildly elevated right sided pressures; RVSP 36 mmHg 6. No significant valvular abnormalities Adult Echocardiography Procedure Report Left Ventricle LVEDD (3.7 - 5.6 cm): 4.24 cm LVESD (2.2 - 4.0 cm): 2.71 cm LVIVS thickness (0.6 - 1.2 cm): 0.89 cm LVPW thickness (0.5 - 1.0 cm): 0.85 cm e': 0.10 m/s E - e': 8.91 LVOT Max Gradient: 3.79 mm[Hg] LVOT Area (cm2): 0.97 m/s Peak Velocity (LVOT): 0.97 m/s Mean Velocity (LVOT): 0.63 m/s LVOT Diameter 1.98 cm Left Ventricular Ejection Fraction: 55.09 % Left Atrium LA Volume Index (2D A2C): 29.92 ml/m2 Left Atrium Systolic Dimension: 2.64 cm Mitral Valve MV E to A Ratio: 1.06 Mitral Valve A-Wave Peak Velocity: 0.80 m/s Mitral Valve E-Wave Peak Velocity: 0.85 m/s Right Ventricle Aorta AO Root Diam: 3.04 cm Aortic Valve AoV Area (Peak Kyler): 1.54 cm2, 1.68 cm2 AoV Area (VTI): 1.71 cm2, 1.85 cm2 Peak Velocity(Antegrade Flow): 1.78 m/s, 1.70 m/s, 1.94 m/s Peak Gradient(Antegrade Flow): 12.63 mm[Hg], 11.50 mm[Hg], 15.04 mm[Hg] Mean Velocity(Antegrade Flow): 1.14 m/s, 1.14 m/s, 1.29 m/s Mean Gradient(Antegrade Flow): 6.08 mm[Hg], 6.11 mm[Hg], 7.33 mm[Hg] Velocity Time Integral: 34.77 cm, 35.25 cm, 37.79 cm Tricuspid Valve Peak Velocity (Regurgitant Flow): 2.86 m/s Pulmonic Valve Peak Gradient: 2.49 mm[Hg], 2.17 mm[Hg] Right Atrium Right Atrium Systolic Pressure: 19.17 ml, 19.17 ml Dictated by: Mamie Lopez M.D. on 10/22/2024 at 15:50 Approved by: Mamie Lopez M.D. on 10/22/2024 at 15:54 Dictated By: Mamie Lopez M.D. 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 Ordering Physician: Jignesh Saez M.D. Date of Service: 09/21/24 Procedure(s): US right upper quadrant Accession Number(s): [id number] cc: Jignesh Saez M.D. [facility] [place] [id number] Patient Name: RADHA ERNANDEZ MRN: [facility]:[id number] date: 1955 Sex: F Assigned Patient Location: US Current Patient Location: US Accession/Order Number: [id number] Exam Date: 09/21/2024 11:01 Report Date: 09/21/2024 [...] CONCERN, MRCP IS SUGGESTED.. Impression dictated by: Quentin Foley Jr., D.O. 09/21/2024 11:03 AM Dictation Location: [place] [address] Electronically authenticated by: [id number] Y Date: 09/21/2024 11:03 Dictated By: Quentin Foley M.D. 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 Ordering Physician: Jignesh Saez M.D. Date of Service: 09/21/24 Procedure(s): US right upper quadrant Accession Number(s): [id number] cc: Jignesh Saez M.D. [address] [address] Patient Name: RADHA ERNANDEZ MRN: [facility]:[id number] date: 1955 Sex: F Assigned Patient Location: US Current Patient Location: US Accession/Order Number: [id number] Exam Date: 09/21/2024 11:01 Report Date: 09/21/2024 [...] CONCERN, MRCP IS SUGGESTED.. Impression dictated by: Quentin Foley Jr., D.O. 09/21/2024 11:03 AM Dictation Location: [place] [address] Electronically authenticated by: [id number] Y Date: 09/21/2024 11:03 Dictated By: Quentin Foley M.D. 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 1 mg/dL [facility] Chloride [Moles/Vol] 106 mmol/L 98 - 10 7 mmol/L [facility] CO2 [Moles/Vol] 31.9 mmol/L 21.0 - 32.0 mmol/L [facility] Creatinine [Mass/Vol] 0.68 mg/dL 0.55 - 1.02 mg/dL [facility] GFR/1.73 sq M.predicted CKD-EPI (S/P/Bld) [Vol rate/Area] >60 >=60 mL/min/1.73m 2 [facility] Glucose [Mass/Vol] 122 mg/dL High 74 - 106 mg/dL [facility] Potassium [Moles/Vol] 4.4 mmol/L 3.5 - 5.1 mmol/L [facility] Sodium [Moles/Vol] 146 mmol/L High 136 - 145 mmol/L [facility] TBH EGFR-NON AF ANDORRAN >60 >=60 mL/min/1.73m 2 [facility] Urea nitrogen [Mass/Vol] 11 mg/dL 7.0 - 18.0 mg/dL [facility] Urea nitrogen/Creatinine [Mass ratio] 16.2 mg/mg [facility] ALL CBC WITH AUTO DIFFon BASOPHILS ABSOLUTE AUTO 0 N [facility] Basophils/100 WBC (Bld) 0.3 % 0.2 - 2.0 % [facility] Eosinophils/100 WBC (Bld) 5.6 % 0.9 - 7.0 % [facility] Erythrocyte distribution width (RBC) [Ratio] 12 % 11.0 - 15.0 % [facility] Hematocrit (Bld) [Volume fraction] 45.2 % 36.0 - 48.0 % [facility] Hemoglobin (Bld) [Mass/Vol] 15.3 g/dL 12.0 - 16.0 g/dL [facility] IMMATURE GRANULOCYTES ABS AUTO 0.02 [facility] Immature granulocytes/100 WBC (Bld) 0.3 % 0.0 - 0.5 % [facility] Interpretation and review of laboratory results Abnormal [facility] LYMPHOCYTES ABSOLUTE AUTO 2.6 [facility] Lymphocytes/100 WBC (Bld) 42.9 % 20.5 - 60.0 % [facility] MCH (RBC) [Entitic mass] 32.4 pg 26.7 - 34.0 pg [facility] MCHC (RBC) [Mass/Vol] 33.8 g/dL 29.9 - 35.2 g/dL [facility] MCV (RBC) [Entitic vol] 95.8 fL 81.0 - 99.0 fL [facility] MONOCYTES ABSOLUTE AUTO 0.5 N [facility] Monocytes/100 WBC (Bld) 8.6 % 1.7 - 12.0 % [facility] NEUTROPHILS ABSOLUTE AUTO 2.5 [facility] Neutrophils/100 WBC (Bld) 42.3 % Low 43.0 - 75.0 % [facility] Platelet mean volume (Bld) [Entitic vol] 9.9 fL 9.5 - 13.5 fL [facility] EO # 0.3 [facility] PLT 243 [facility] RBC 4.72 [facility] TB WBC 5.9 [facility] ALL LIPID PROFILE (FASTING)o n 07-28-2024 CHOL HDL RATIO 3.3 [facility] Comment on above: 3.3 - 4.4 LOW RISK 4.4 - 7.1 AVERAGE RISK 7.1 - 11.0 MODERATE RISK >11.0 HIGH RISK Cholesterol [Mass/Vol] 218 mg/dL High NINF - 200 mg/dL [facility] Cholesterol in HDL [Mass/Vol] 67 mg/dL High 40 - 60 mg/dL [facility] Comment on above: > or =60 mg/dl - LOW CARDIOVASCULAR RISK <40 mg/dl - HIGH CARDIOVASCULAR RISK Magnesium [Mass/Vol] 110 mg/dL [facility] Comment on above: <100 mg/dl OPTIMAL 100-129 mg/dl NEAR OR ABOVE OPTIMAL 130-159 mg/dl BORDERLINE HIGH 160-189 mg/dl HIGH >190 mg/dl VERY HIGH Magnesium [Mass/Vol] 41.4 mg/dL [facility] Triglyceride [Mass/Vol] 207 mg/dL High NINF - 150 mg/dL [facility] ALL THYROID STIM HORMONEon 0 07-28-2024 TSH Qn 1.99 m[IU]/L [facility] HMHP LIVER PANELon Albumin [Mass/Vol] 3.2 g/dL Low 3.4 - 5.0 g/dL [facility] ALBUMIN GLOBULIN RATIO 0.9 NO [facility] ALP [Catalytic activity/Vol] 62 U/L 46 - 116 U/L [facility] ALT [Catalytic activity/Vol] 37 U/L 14 - 59 U/L [facility] AST [Catalytic activity/Vol] 21 U/L 15 - 37 U/L [facility] Bilirubin [Mass/Vol] 0.5 mg/dL 0.2 - 1 .0 mg/dL [facility] Bilirubin.indirect [Mass/Vol] 0.1 mg/dL 0.0 - 0.2 mg/dL [facility] Globulin (S) [Mass/Vol] 3.4 g/dL N [facility] Protein [Mass/Vol] 6.6 g/dL 6.4 - 8.2 g/dL [facility] No Panel Informationon 07-28 Interpretation and review of laboratory results Abnormal [facility] Basic Metabolic Panelon Anion gap [Moles/Vol] 10.4 mmol/L Normal 6.0-15.0 [facility] e [facility] Comment on above: Performed By: #### B MP, CBC #### [facility] [address] [place] [id number] [place] Calcium [Mass/Vol] 8.3 mg/dL Low 8.6-10.3 [facility] Comment on above: Performed By: #### B MP, CBC #### [facility] [address] [place] [address] [place] Chloride [Moles/Vol] 104 mmol/L Normal 98-107 [facility] Comment on above: Performed By: #### B MP, CBC #### [facility] [address] [place] [address] [place] CO2 [Moles/Vol] 29.9 mmol/L Normal 21.0-31.0 [facility] Comment on above: Performed By: #### B MP, CBC #### [facility] [address] [place] [id number] [place] Creatinine [Mass/Vol] 0.59 mg/dL Low 0.60-1.20 [facility] Comment on above: Performed By: #### B MP, CBC #### [address] Creatinine Clr Calc Pharmacy 73.90 Normal [facility] Comment on above: Result Comment: PERF ORMED BY: [place] [address] PATHOLOGIST [employer]ITTER [employer]OTTER HELPER ELLA CLAY M.D. Performed By: #### B MP, CBC #### [place] [address] [place] GFR/1.73 sq M.predicted MDRD (S/P/Bld) [Vol rate/Area] mL/min/{1.73_m2} Normal [facility] Comment on above: Performed By: #### B ERNESTINE, CBC #### [address] Glucose [Mass/Vol] 102 mg/dL High 70-100 [facility] Comment on above: Result Comment: [facility] Glucose Reference Range is dependent on time and content of last meal. Glucose of more than 200 mg/dL in a nonstressed, ambulatory subject supports the diagnosis of Diabetes Mellitus. ADA recommended reference range Performed By: #### B MP, CBC #### [address] Potassium [Moles/Vol] 4.3 mmol/L Normal 3.5-5.1 [facility] Comment on above: Result Comment: Hemo lysis is present at a level that could interfere with the result. Contact lab if redraw is required Performed By: #### B MP, CBC #### [address] Sodium [Moles/Vol] 140 mmol/L Normal 136-145 [facility] Comment on above: Performed By: #### B MP, CBC #### [address] Urea nitrogen [Mass/Vol] 16 mg/dL Normal 7-25 [facility] Comment on above: Performed By: #### B MP, CBC #### [place] [address] [place] Basophils Auto (Bld) [#/Vol] Ordered By: Linda Antonio on 07-08-2024 Basophils (Bld) [#/Vol] Automated basoph il count 0.0-0.2 [facility] Basophils/100 WBC Auto (Bld) Ordered By: Linda Antonio on 07-08-2024 Basophils/100 WBC (Bld) Automated basophil % . [facility] Calcium [Mass/volume] in Ser um or PlasmaOrdered By: Linda Antonio on 07-08-2024 Calcium [Mass/Vol] Calcium [Mass/volume ] in Serum or Plasma Low 8.6-10.3 [facility] Carbon dioxide, total [Moles /volume] in Serum or PlasmaOrdered By: Linda Antonio on 07-08-2024 CO2 [Moles/Vol] Carbon dioxide, tota l [Moles/volume] in Serum or Plasma 21.0-31.0 [facility] Chloride [Moles/volume] in S shana or PlasmaOrdered By: Linda Antonio on 07-08-2024 Chloride [Moles/Vol] Chloride [Moles/volume] in Serum or Plasma 98-107 [facility] Complete Blood Count Auto Di ffon 07-08-2024 Basophils (Bld) [#/Vol] 0.1 10*3/uL Normal 0.0-0.2 [facility] Comment on above: Result Comment: PERF ORMED BY: [place] [address] PATHOLOGIST [employer]ITTER [employer] HELPER ELLA CLAY M.D. Performed By: #### B MP, CBC #### [facility] [address] Basophils/100 WBC (Bld) 0.7 % Normal . T himanshu [facility] Comment on above: Performed By: #### B MP, CBC #### [facility] [address] Eosinophils (Bld) [#/Vol] 0.0 10*3/uL Normal 0.0-0.45 [facility] Comment on above: Performed By: #### B MP, CBC #### [address] Eosinophils/100 WBC (Bld) 0.2 % Normal . [facility] Comment on above: Performed By: #### B MP, CBC #### [address] Erythrocyte distribution width (RBC) [Ratio] 13.0 % Normal 11.9-15.3 [facility] Comment on above: Performed By: #### B MP, CBC #### [address] Hematocrit (Bld) [Volume fraction] 44.1 % Normal 34.0-46.4 [facility] Comment on above: Performed By: #### B MP, CBC #### [address] Hemoglobin (Bld) [Mass/Vol] 14.6 g/dL Normal 11.8-15.4 [facility] Comment on above: Performed By: #### B MP, CBC #### [address] Lymphocytes (Bld) [#/Vol] 3.9 10*3/uL Normal 1.00-4.8 [facility] Comment on above: Performed By: #### B MP, CBC #### [address] Lymphocytes/100 WBC (Bld) 28.2 % Normal . [facility] Comment on above: Performed By: #### B MP, CBC #### [address] MCH (RBC) [Entitic mass] 31.9 pg Normal 24.7-34.3 [facility] Comment on above: Performed By: #### B MP, CBC #### [address] MCV (RBC) [Entitic vol] 96.7 fL Normal 80-100 T [facility] Comment on above: Performed By: #### B MP, CBC #### [address] Mean Corpuscular HGB Conc 33.0 g/dL Normal 32.0-35.0 [facility] Comment on above: Performed By: #### B MP, CBC #### [address] Monocytes (Bld) [#/Vol] 1.3 10*3/uL High 0.0-0.8 [facility] Comment on above: Performed By: #### B MP, CBC #### [address] Monocytes/100 WBC (Bld) 9.6 % Normal . T [facility] Comment on above: Performed By: #### B MP, CBC #### [address] Neutrophils (Bld) [#/Vol] 8.4 10*3/uL High 1.8-7.7 [facility] Comment on above: Performed By: #### B MP, CBC #### [address] Neutrophils/100 WBC (Bld) 61.3 % Normal . [facility] Comment on above: Performed By: #### B MP, CBC #### [address] NRBC% 0.1 /100{WBC} Normal 0-0.5 [facility] Comment on above: Performed By: #### B MP, CBC #### [address] Platelet mean volume (Bld) [Entitic vol] 8.6 fL Normal 6.3-10.7 [facility] Comment on above: Performed By: #### B MP, CBC #### [address] Platelets (Bld) [#/Vol] 249 10*3/uL Normal 150-450 [facility] Comment on above: Performed By: #### B MP, CBC #### [address] RBC (Bld) [#/Vol] 4.56 10*6/uL Normal 3.60-5.00 [facility] Comment on above: Performed By: #### B MP, CBC #### [facility] [address] WBC (Bld) [#/Vol] 13.8 10*3/uL High 3.8-11.6 [facility] Comment on above: Performed By: #### B MP, CBC #### [facility] [address] Creatinine [Mass/volume] in Serum or PlasmaOrdered By: Linda Antonio on 07-08-2024 Creatinine [Mass/Vol] Creatinine [Mass/volume] in Serum or Plasma Low 0.60-1.20 [facility] Eosinophils Auto (Bld) [#/Vo l]Ordered By: Linda Antonio on 07-08-2024 Eosinophils (Bld) [#/Vol] Automated eosinophil count 0.0-0.45 [facility] Eosinophils/100 WBC Auto (Bl d)Ordered By: Linda Antonio on 07-08-2024 Eosinophils/100 WBC (Bld) Automated eosinophil % . [facility] Erythrocyte distribution wid th Auto (RBC) [Ratio]Ordered By: Linda Bentley on 07-08-2024 Erythrocyte distribution width (RBC) [Ratio] Erythrocyte distribution width [Ratio] by Automated count 11.9-15.3 [facility] Glucose [Mass/volume] in Ser um or PlasmaOrdered By: Linda Antonio on 07-08-2024 Glucose [Mass/Vol] Glucose [Mass/volume ] in Serum or Plasma High 70-100 [facility] Comment on above: ADA recommended refe rence rangeRandom Glucose Reference Range is dependent on time and content of last meal. Glucose of more than 200 mg/dL in a nonstressed, ambulatory subject supports the diagnosis of Diabetes Mellitus. Hematocrit Auto (Bld) [Volum e fraction]Ordered By: Linda Antonio on 07-08-2024 Hematocrit (Bld) [Volume fraction] Hematocrit [Volume Fraction] of Blood by Automated count 34.0-46.4 [facility] Hemoglobin [Mass/volume] in BloodOrdered By: Linda Antonio on 07-08-2024 Hemoglobin (Bld) [Mass/Vol] Hemoglobin [Mass/volume] in Blood 11.8-15.4 [facility] Leukocytes [#/volume] correc bozena for nucleated erythrocytes in Blood by Automated counOrdered By: Linda Antonio on 07-08-2024 WBC corrected for nucl RBC Auto (Bld) [#/Vol] Leukocytes [#/volume] corrected for nucleated erythrocytes in Blood by Automated coun High 3.8-11.6 [facility] Lymphocytes Auto (Bld) [#/Vo l]Ordered By: Linda Antonio on 07-08-2024 Lymphocytes (Bld) [#/Vol] Lymphocytes [#/volume] in Blood by Automated count 1.00-4.8 [facility] Lymphocytes/100 WBC Auto (Bl d)Ordered By: Linda Antonio on 07-08-2024 Lymphocytes/100 WBC (Bld) Lymphocytes/100 leukocytes in Blood by Automated count . [facility] MCH Auto (RBC) [Entitic mass ]Ordered By: Linda Antonio on 07-08-2024 MCH (RBC) [Entitic mass] MCH [Entitic mass] by Automated count 24.7-34.3 [facility] MCHC Auto (RBC) [Mass/Vol]Or dered By: Linda Antonio on 07-08-2024 MCHC (RBC) [Mass/Vol] MCHC [Mass/volume] by Automated count 32.0-35.0 [facility] MCV Auto (RBC) [Entitic vol] Ordered By: Linda Antonio on 07-08-2024 MCV (RBC) [Entitic vol] MCV [Entitic vol ume] by Automated count 80-100 [facility] Monocytes Auto (Bld) [#/Vol] Ordered By: Linda Antonio on 07-08-2024 Monocytes (Bld) [#/Vol] Automated blood monocyte count High 0.0-0.8 [facility] Monocytes/100 WBC Auto (Bld) Ordered By: Linda Antonio on 07-08-2024 Monocytes/100 WBC (Bld) Automated monocyte % . [facility] Neutrophils Auto (Bld) [#/Vo l]Ordered By: Linda Antonio on 07-08-2024 Neutrophils (Bld) [#/Vol] Neutrophils [#/volume] in Blood by Automated count High 1.8-7.7 [facility] Neutrophils/100 WBC Auto (Bl d)Ordered By: Linda Antonio on 07-08-2024 Neutrophils/100 WBC (Bld) Automated neutrophil % . [facility] No Panel InformationOrdered By: Linda Antonio on 07-08-2024 Estimated GFR (CKD-EPI) > 60.0 mL/Min [facility] Creatinine Clearance (Chem 73.90 [facility] Nucleated erythrocytes [Pres ence] in Blood by Automated countOrdered By: Linda Antonio on 07-08-2024 Nucleated RBC Auto Ql (Bld) Nucleated erythrocytes [Presence] in Blood by Automated count 0-0.5 [facility] Platelet mean volume Auto (B ld) [Entitic vol]Ordered By: Linda Antonio on 07-08-2024 Platelet mean volume (Bld) [Entitic vol] Platelet mean volume [Entitic volume] in Blood by Automated count 6.3-10.7 [facility] Platelets Auto (Bld) [#/Vol] Ordered By: Linda Antonio on 07-08-2024 Platelets (Bld) [#/Vol] Platelets [#/vol ume] in Blood by Automated count 150-450 [facility] Potassium [Moles/volume] in Serum or PlasmaOrdered By: Linda Antonio on 07-08-2024 Potassium [Moles/Vol] Potassium [Moles/volume] in Serum or Plasma 3.5-5.1 [facility] Comment on above: Hemolysis is present at a level that could interfere with the result.Contact lab if redraw is required RBC Auto (Bld) [#/Vol]Ordere d By: Linda Antonio on 07-08-2024 RBC (Bld) [#/Vol] Erythrocytes [#/volume] in Blood by Automated count 3.60-5.00 [facility] Serum or plasma anion gap de terminationOrdered By: Linda Antonio on 07-08-2024 Anion gap [Moles/Vol] Serum or plasma an ion gap determination 6.0-15.0 [facility] Sodium [Moles/volume] in Ser um or PlasmaOrdered By: Linda Antonio on 07-08-2024 Sodium [Moles/Vol] Sodium [Moles/volume ] in Serum or Plasma 136-145 [facility] Urea nitrogen [Mass/volume] in Serum or PlasmaOrdered By: Linda Antonio on 07-08-2024 Urea nitrogen [Mass/Vol] Urea nitrogen [Mass/volume] in Serum or Plasma 7-25 [facility] WBC Auto (Bld) [#/Vol]Ordere d By: Linda Antonio on 07-08-2024 WBC (Bld) [#/Vol] Leukocytes [#/volume ] in Blood by Automated count High 3.8-11.6 [facility] BioFire Not Detectedon 07-07 BioFire Not Detected Not detected Normal Not Detecte T he [facility] Comment on above: Result Comment: This is a duplicate RP2.1 COVID (PCR) result to be used for statistical tracking purpose only. PERFORMED BY: [facility] [address] [place] [address] PATHOLOGIST [employer]ITTER [employer] HELPER ELLA CLAY M.D. Performed By: #### B IOFIRECOVNOTDE, RESP PANEL UPP. ####[facility] COVID-19 Detected/Not Detect edOrdered By: Linda Antonio on 07-07-2024 SARS-CoV-2 (COVID-19) RNA CHRISTY+non-probe Ql (Nph) Not detected Not Detecte [facility] Comment on above: This is a duplicate [...] Influenza A H3 Blank Space PERFORMED BY: [place] [address] PATHOLOGIST SLITTER [employer]TER HELPER ELLA CLAY M.D. Normal [facility] Comment on above: Performed By: #### C EPHEID NEG, COVID19 FLU RSV #### [facility] [address] Respiratory pathogens DNA an d RNA panel - Nasopharynx by CHRISTY with non-probe detectionOrdered By: Linda Antonio on 07-07-2024 Respiratory pathogens DNA and RNA panel CHRISTY+non-probe (Nph) Respiratory pathogens DNA and RNA panel - Nasopharynx by CHRISTY with non-probe detection [facility] Basic Metabolic Panelon Anion gap [Moles/Vol] 11.3 mmol/L Normal 6.0-15.0 Th e [facility] Comment on above: Performed By: #### C BC, BMP #### [address] Calcium [Mass/Vol] 8.7 mg/dL Normal 8.6-10.3 [facility] Comment on above: Performed By: #### C BC, BMP #### [address] Chloride [Moles/Vol] 105 mmol/L Normal 98-107 [facility] Comment on above: Performed By: #### C BC, BMP #### [address] CO2 [Moles/Vol] 28.0 mmol/L Normal 21.0-31.0 [facility] Comment on above: Performed By: #### C BC, BMP #### [address] Creatinine [Mass/Vol] 0.62 mg/dL Normal 0.60-1.20 [facility] Comment on above: Performed By: #### C BC, BMP #### [address] Creatinine Clr Calc Pharmacy 72.00 Normal [facility] Comment on above: Result Comment: PERF ORMED BY: [place] [address] PATHOLOGIST SLITTER [employer]TER HELPER ELLA CLAY M.D. Performed By: #### C BC, BMP #### [address] GFR/1.73 sq M.predicted MDRD (S/P/Bld) [Vol rate/Area] mL/min/{1.73_m2} Normal [facility] Comment on above: Performed By: #### C BC, BMP #### [address] Glucose [Mass/Vol] 155 mg/dL High 70-100 [facility] Comment on above: Result Comment: [facility] Glucose Reference Range is dependent on time and content of last meal. Glucose of more than 200 mg/dL in a nonstressed, ambulatory subject supports the diagnosis of Diabetes Mellitus. ADA recommended reference range Performed By: #### C BC, BMP #### [address] Potassium [Moles/Vol] 4.3 mmol/L Normal 3.5-5.1 [facility] Comment on above: Performed By: #### C BC, BMP #### [address] Sodium [Moles/Vol] 140 mmol/L Normal 136-145 [facility] Comment on above: Performed By: #### C BC, BMP #### [address] Urea nitrogen [Mass/Vol] 13 mg/dL Normal 7-25 [facility] Comment on above: Performed By: #### C BC, BMP #### [address] Complete Blood Count Auto Di ffon 07-06-2024 Basophils (Bld) [#/Vol] 0.1 10*3/uL Normal 0.0-0.2 [facility] Comment on above: Result Comment: PERF ORMED BY: [place] [address] PATHOLOGIST SLITTER [employer]TER HELPER ELLA CLAY M.D. Performed By: #### C BC, BMP #### [address] Basophils/100 WBC (Bld) 0.5 % Normal . T himanshu [facility] Comment on above: Performed By: #### C BC, BMP #### [address] Eosinophils (Bld) [#/Vol] 0.0 10*3/uL Normal 0.0-0.45 [facility] Comment on above: Performed By: #### C BC, BMP #### [address] Eosinophils/100 WBC (Bld) 0.0 % Normal . [facility] Comment on above: Performed By: #### C BC, BMP #### [address] Erythrocyte distribution width (RBC) [Ratio] 13.0 % Normal 11.9-15.3 [facility] Comment on above: Performed By: #### C BC, BMP #### [address] Hematocrit (Bld) [Volume fraction] 46.9 % High 34.0-46.4 [facility] Comment on above: Performed By: #### C BC, BMP #### [address] Hemoglobin (Bld) [Mass/Vol] 15.6 g/dL High 11.8-15.4 [facility] Comment on above: Performed By: #### C BC, BMP #### [address] Lymphocytes (Bld) [#/Vol] 1.7 10*3/uL Normal 1.00-4.8 [facility] Comment on above: Performed By: #### C BC, BMP #### [address] Lymphocytes/100 WBC (Bld) 12.1 % Normal . [facility] Comment on above: Performed By: #### C BC, BMP #### [address] MCH (RBC) [Entitic mass] 31.8 pg Normal 24.7-34.3 [facility] Comment on above: Performed By: #### C BC, BMP #### [address] MCV (RBC) [Entitic vol] 95.9 fL Normal 80-100 T [facility] Comment on above: Performed By: #### C BC, BMP #### [address] Mean Corpuscular HGB Conc 33.2 g/dL Normal 32.0-35.0 [facility] Comment on above: Performed By: #### C BC, BMP #### [facility] [address] [place] [address] [place] Monocytes (Bld) [#/Vol] 0.5 10*3/uL Normal 0.0-0.8 [facility] Comment on above: Performed By: #### C BC, BMP #### [address] Monocytes/100 WBC (Bld) 4.0 % Normal . T he [facility] Comment on above: Performed By: #### C BC, BMP #### [address] Neutrophils (Bld) [#/Vol] 11.5 10*3/uL High 1.8-7.7 [facility] Comment on above: Performed By: #### C BC, BMP #### [address] Neutrophils/100 WBC (Bld) 83.4 % Normal . [facility] Comment on above: Performed By: #### C BC, BMP #### [address] NRBC% 0.0 /100{WBC} Normal 0-0.5 [facility] Comment on above: Performed By: #### C BC, BMP #### [address] Platelet mean volume (Bld) [Entitic vol] 8.8 fL Normal 6.3-10.7 [facility] Comment on above: Performed By: #### C BC, BMP #### [place] [address] [place] Platelets (Bld) [#/Vol] 270 10*3/uL Normal 150-450 [facility] Comment on above: Performed By: #### C BC, BMP #### [place] [address] [place] RBC (Bld) [#/Vol] 4.90 10*6/uL Normal 3.60-5.00 [facility] Comment on above: Performed By: #### C BC, BMP #### [facility] [address] WBC (Bld) [#/Vol] 13.8 10*3/uL High 3.8-11.6 [facility] Comment on above: Performed By: #### C BC, BMP #### [address] Aerobic Cultureon 07-05-2024 Aerobic Culture Result Tab Codes Moderate Normal Respiratory Lilia 2 Days Gram Stain Result 4+ Gram Positive Cocci 3+ Gram Positive Bacilli 2+ White Blood Cells 2+ Epithelial Cells PERFORMED BY: [place] [address] PATHOLOGIST [employer]TER [employer] HELPER ELLA CLAY M.D. Normal [facility] Comment on above: Performed By: #### C EPHEID NEG, COVID19 FLU RSV #### [address] Aerobic cultureOrdered By: Jazz Man on 07-05-2024 Bacteria identified Aer cx Nom (Unsp spec) Aerobic culture [facility] Alanine aminotransferase [En zymatic activity/volume] in Serum or PlasmaOrdered By: Genie Man on 07-05-2024 ALT [Catalytic activity/Vol] Alanine aminotransferase [Enzymatic activity/volume] in Serum or Plasma [facility] Alanine aminotransferase [En zymatic activity/volume] in Serum or PlasmaOrdered By: Trevin Sepulveda on 07-05-2024 ALT [Catalytic activity/Vol] Alanine aminotransferase [Enzymatic activity/volume] in Serum or Plasma [facility] Albumin [Mass/volume] in Ser um or Plasma by Bromocresol green (BCG) dye binding methoOrdered By: Genie Man on 07-05-2024 Albumin BCG dye [Mass/Vol] Albumin [Mass/volume] in Serum or Plasma by Bromocresol green (BCG) dye binding metho 3.5-5.7 [facility] Albumin [Mass/volume] in Ser um or Plasma by Bromocresol green (BCG) dye binding methoOrdered By: Trevin Sepulveda on 07-05-2024 Albumin BCG dye [Mass/Vol] Albumin [Mass/volume] in Serum or Plasma by Bromocresol green (BCG) dye binding metho 3.5-5.7 [facility] Alkaline phosphatase [Enzyma tic activity/volume] in Serum or PlasmaOrdered By: Genie Man on 07-05-2024 ALP [Catalytic activity/Vol] Alkaline phosphatase [Enzymatic activity/volume] in Serum or Plasma 34-104 [facility] Alkaline phosphatase [Enzyma tic activity/volume] in Serum or PlasmaOrdered By: Trevin Sepulveda on 07-05-2024 ALP [Catalytic activity/Vol] Alkaline phosphatase [Enzymatic activity/volume] in Serum or Plasma 34-104 [facility] Aspartate aminotransferase [ Enzymatic activity/volume] in Serum or PlasmaOrdered By: Genie Man on 07-05-2024 AST [Catalytic activity/Vol] Aspartate aminotransferase [Enzymatic activity/volume] in Serum or Plasma 13-39 [facility] Aspartate aminotransferase [ Enzymatic activity/volume] in Serum or PlasmaOrdered By: Trevin Sepulveda on 07-05-2024 AST [Catalytic activity/Vol] Aspartate aminotransferase [Enzymatic activity/volume] in Serum or Plasma High 13-39 [facility] B-Type Natriuretic Peptideon 07-05-2024 Natriuretic peptide B (Bld) [Mass/Vol] 42.0 pg/mL Normal 5-100 [facility] Comment on above: Result Comment: PERF ORMED BY: [place] [address] PATHOLOGIST SLITTER [employer] HELPER ELLA CLAY M.D. Performed By: #### C EPHEID NEG, COVID19 FLU RSV #### [place] [address] [place] Basophils Auto (Bld) [#/Vol] Ordered By: Trevin Sepulveda on 07-05-2024 Basophils (Bld) [#/Vol] Automated basoph il count 0.0-0.2 [facility] Basophils/100 WBC Auto (Bld) Ordered By: Trevin Sepulveda on 07-05-2024 Basophils/100 WBC (Bld) Automated basophil % . [facility] Bilirubin.total [Mass/volume ] in Serum or PlasmaOrdered By: Genie Man on 07-05-2024 Bilirubin [Mass/Vol] Bilirubin.total [Mass/volume] in Serum or Plasma 0.3-1.0 [facility] Bilirubin.total [Mass/volume ] in Serum or PlasmaOrdered By: Trevin Sepulveda on 07-05-2024 Bilirubin [Mass/Vol] Bilirubin.total [Mass/volume] in Serum or Plasma Low 0.3-1.[address] [facility] [address] chest w conon 07-05-2024 CT chest w con [facility] [address] CT Scan Report Signed Patient: Radha Ernandez MR#: [id number] 0 : 1955 Acct:[id number] Age/Sex: 69 / F ADM Date: 07/05/24 Loc: Room: [address] [place] [address] Type: ADM IN Attending Dr: Eliu Schmitz [...] West M.D. 07/05/2024 9:18 AM Dictation Location: [facility]29 Transcribed By: JUNIOR 07/05/24917 Dictated By: Phillip West MD 07/05/24913 Signed By: 07/05/24917 Normal [facility] Calcium [Mass/volume] in Ser um or PlasmaOrdered By: Trevin Sepulveda on 07-05-2024 Calcium [Mass/Vol] Calcium [Mass/volume ] in Serum or Plasma 8.6-10.3 [facility] Carbon dioxide, total [Moles /volume] in Serum or PlasmaOrdered By: Trevin Sepulveda on 07-05-2024 CO2 [Moles/Vol] Carbon dioxide, tota l [Moles/volume] in Serum or Plasma 21.0-31.0 [facility] [place] [Moles/volume] in S shana or PlasmaOrdered By: Trevin Sepulveda on 07-05-2024 [place] [Moles/Vol] [place] [Moles/volume] in Serum or Plasma 98-107 [facility] Complete Blood Count Auto Di ffon 07-05-2024 Basophils (Bld) [#/Vol] 0.0 10*3/uL Normal 0.0-0.2 [facility] Comment on above: Result Comment: PERF ORMED BY: [place] [address] PATHOLOGIST SLITTER CREASER SLOTTER HELPER ELLA CLAY M.D. Performed By: #### C EPHEID NEG, COVID19 FLU RSV #### [address] Basophils/100 WBC (Bld) 0.5 % Normal . [facility] Comment on above: Performed By: #### C EPHEID NEG, COVID19 FLU RSV #### [address] Eosinophils (Bld) [#/Vol] 0.0 10*3/uL Normal 0.0-0.45 [facility] Comment on above: Performed By: #### C EPHEID NEG, COVID19 FLU RSV #### [address] Eosinophils/100 WBC (Bld) 0.1 % Normal . [facility] Comment on above: Performed By: #### C EPHEID NEG, COVID19 FLU RSV #### [address] Erythrocyte distribution width (RBC) [Ratio] 13.1 % Normal 11.9-15.3 [facility] Comment on above: Performed By: #### C EPHEID NEG, COVID19 FLU RSV #### [address] Hematocrit (Bld) [Volume fraction] 46.6 % High 34.0-46.4 [facility] Comment on above: Performed By: #### C EPHEID NEG, COVID19 FLU RSV #### [address] Hemoglobin (Bld) [Mass/Vol] 15.8 g/dL High 11.8-15.4 [facility] Comment on above: Performed By: #### C EPHEID NEG, COVID19 FLU RSV #### [address] Lymphocytes (Bld) [#/Vol] 1.4 10*3/uL Normal 1.00-4.8 [facility] Comment on above: Performed By: #### C EPHEID NEG, COVID19 FLU RSV #### [address] Lymphocytes/100 WBC (Bld) 15.4 % Normal . [facility] Comment on above: Performed By: #### C EPHEID NEG, COVID19 FLU RSV #### [address] MCH (RBC) [Entitic mass] 32.1 pg Normal 24.7-34.3 [facility] Comment on above: Performed By: #### C EPHEID NEG, COVID19 FLU RSV #### [address] MCV (RBC) [Entitic vol] 94.3 fL Normal 80-100 [facility] Comment on above: Performed By: #### C EPHEID NEG, COVID19 FLU RSV #### [address] Mean Corpuscular HGB Conc 34.0 g/dL Normal 32.0-35.0 [facility] Comment on above: Performed By: #### C EPHEID NEG, COVID19 FLU RSV #### [place] [address] [place] Monocytes (Bld) [#/Vol] 0.1 10*3/uL Normal 0.0-0.8 [facility] Comment on above: Performed By: #### C EPHEID NEG, COVID19 FLU RSV #### [place] [address] [place] Monocytes/100 WBC (Bld) 19.66 % Normal 0.00-20.00 [facility] Comment on above: Performed By: #### C EPHEID NEG, COVID19 FLU RSV #### [place] [address] [place] Monocytes/100 WBC (Bld) 1.4 % Normal . [facility] Comment on above: Performed By: #### C EPHEID NEG, COVID19 FLU RSV #### [place] [address] [place] Neutrophils (Bld) [#/Vol] 7.6 10*3/uL Normal 1.8-7.7 [facility] Comment on above: Performed By: #### C EPHEID NEG, COVID19 FLU RSV #### [place] [address] [place] Neutrophils/100 WBC (Bld) 82.6 % Normal . [facility] Comment on above: Performed By: #### C EPHEID NEG, COVID19 FLU RSV #### [place] [address] [place] NRBC% 0.0 /100{WBC} Normal 0-0.5 [facility] Comment on above: Performed By: #### C EPHEID NEG, COVID19 FLU RSV #### [address] Platelet mean volume (Bld) [Entitic vol] 8.4 fL Normal 6.3-10.7 [facility] Comment on above: Performed By: #### C EPHEID NEG, COVID19 FLU RSV #### [address] Platelets (Bld) [#/Vol] 268 10*3/uL Normal 150-450 [facility] Comment on above: Performed By: #### C EPHEID NEG, COVID19 FLU RSV #### [address] RBC (Bld) [#/Vol] 4.94 10*6/uL Normal 3.60-5.00 [facility] Comment on above: Performed By: #### C EPHEID NEG, COVID19 FLU RSV #### [address] WBC (Bld) [#/Vol] 9.2 10*3/uL Normal 3.8-11.6 [facility] Comment on above: Performed By: #### C EPHEID NEG, COVID19 FLU RSV #### [address] Basophils (Bld) [#/Vol] 0.1 10*3/uL Normal 0.0-0.2 [facility] Comment on above: Result Comment: PERF ORMED BY: [place] [address] PATHOLOGIST SLITTER CREASER SLOTTER HELPER ELLA CLAY M.D. Performed By: #### B MARKETING SPECIALIST, HS TROP, CBC, CK, CMP #### [address] Basophils/100 WBC (Bld) 0.7 % Normal . [facility] Comment on above: Performed By: #### B MARKETING SPECIALIST, HS TROP, CBC, CK, CMP #### [address] Eosinophils (Bld) [#/Vol] 0.2 10*3/uL Normal 0.0-0.45 [facility] Comment on above: Performed By: #### B MARKETING SPECIALIST, HS TROP, CBC, CK, CMP #### [address] Eosinophils/100 WBC (Bld) 1.5 % Normal . [facility] Comment on above: Performed By: #### B MARKETING SPECIALIST, HS TROP, CBC, CK, CMP #### [address] Erythrocyte distribution width (RBC) [Ratio] 12.9 % Normal 11.9-15.3 [facility] Comment on above: Performed By: #### B MARKETING SPECIALIST, HS TROP, CBC, CK, CMP #### [address] Hematocrit (Bld) [Volume fraction] 48.6 % High 34.0-46.4 [facility] Comment on above: Performed By: #### B MARKETING SPECIALIST, HS TROP, CBC, CK, CMP #### [address] Hemoglobin (Bld) [Mass/Vol] 16.3 g/dL High 11.8-15.4 [facility] Comment on above: Performed By: #### B MARKETING SPECIALIST, HS TROP, CBC, CK, CMP #### [address] Lymphocytes (Bld) [#/Vol] 3.4 10*3/uL Normal 1.00-4.8 [facility] Comment on above: Performed By: #### B MARKETING SPECIALIST, HS TROP, CBC, CK, CMP #### [address] Lymphocytes/100 WBC (Bld) 29.7 % Normal . [facility] Comment on above: Performed By: #### B MARKETING SPECIALIST, HS TROP, CBC, CK, CMP #### [address] MCH (RBC) [Entitic mass] 31.8 pg Normal 24.7-34.3 [facility] Comment on above: Performed By: #### B MARKETING SPECIALIST, HS TROP, CBC, CK, CMP #### [address] MCV (RBC) [Entitic vol] 94.6 fL Normal 80-100 [facility] Comment on above: Performed By: #### B MARKETING SPECIALIST, HS TROP, CBC, CK, CMP #### [address] Mean Corpuscular HGB Conc 33.7 g/dL Normal 32.0-35.0 [facility] Comment on above: Performed By: #### B MARKETING SPECIALIST, HS TROP, CBC, CK, CMP #### [address] Monocytes (Bld) [#/Vol] 1.0 10*3/uL High 0.0-0.8 [facility] Comment on above: Performed By: #### B MARKETING SPECIALIST, HS TROP, CBC, CK, CMP #### [address] Monocytes/100 WBC (Bld) 18.77 % Normal 0.00-20.00 [facility] Comment on above: Performed By: #### B MARKETING SPECIALIST, HS TROP, CBC, CK, CMP #### [address] Monocytes/100 WBC (Bld) 9.0 % Normal . [facility] Comment on above: Performed By: #### B MARKETING SPECIALIST, HS TROP, CBC, CK, CMP #### [address] Neutrophils (Bld) [#/Vol] 6.7 10*3/uL Normal 1.8-7.7 [facility] Comment on above: Performed By: #### B MARKETING SPECIALIST, HS TROP, CBC, CK, CMP #### [address] Neutrophils/100 WBC (Bld) 59.1 % Normal . [facility] Comment on above: Performed By: #### B MARKETING SPECIALIST, HS TROP, CBC, CK, CMP #### [address] NRBC% 0.1 /100{WBC} Normal 0-0.5 [facility] Comment on above: Performed By: #### B MARKETING SPECIALIST, HS TROP, CBC, CK, CMP #### [address] Platelet mean volume (Bld) [Entitic vol] 8.5 fL Normal 6.3-10.7 [facility] Comment on above: Performed By: #### B MARKETING SPECIALIST, HS TROP, CBC, CK, CMP #### [address] Platelets (Bld) [#/Vol] 281 10*3/uL Normal 150-450 [facility] Comment on above: Performed By: #### B MARKETING SPECIALIST, HS TROP, CBC, CK, CMP #### [address] RBC (Bld) [#/Vol] 5.13 10*6/uL High 3.60-5.00 [facility] Comment on above: Performed By: #### B MARKETING SPECIALIST, HS TROP, CBC, CK, CMP #### [address] WBC (Bld) [#/Vol] 11.4 10*3/uL Normal 3.8-11.6 [facility] Comment on above: Performed By: #### B MARKETING SPECIALIST, HS TROP, CBC, CK, CMP #### [address] Comprehensive Metabolic Pane reinaldo 07-05-2024 Albumin [Mass/Vol] 3.8 g/dL Normal 3.5-5.7 [facility] Comment on above: Performed By: #### C EPHEID NEG, COVID19 FLU RSV #### [address] Albumin/Globulin [Mass ratio] 1.5 {ratio} Normal [facility] Comment on above: Performed By: #### C EPHEID NEG, COVID19 FLU RSV #### [address] ALP [Catalytic activity/Vol] 61 U/L Normal 34-104 [facility] Comment on above: Performed By: #### C EPHEID NEG, COVID19 FLU RSV #### [address] ALT [Catalytic activity/Vol] 40 U/L Normal 7-52 [facility] Comment on above: Performed By: #### C EPHEID NEG, COVID19 FLU RSV #### [address] Anion gap [Moles/Vol] 11.5 mmol/L Normal 6.0-15.0 [facility] Comment on above: Performed By: #### C EPHEID NEG, COVID19 FLU RSV #### [address] AST [Catalytic activity/Vol] 27 U/L Normal 13-39 [facility] Comment on above: Performed By: #### C EPHEID NEG, COVID19 FLU RSV #### [place] [address] [place] Bilirubin [Mass/Vol] 0.3 mg/dL Normal 0.3-1.0 [facility] Comment on above: Performed By: #### C EPHEID NEG, COVID19 FLU RSV #### [place] [address] [place] Calcium [Mass/Vol] 8.7 mg/dL Normal 8.6-10.3 [facility] Comment on above: Performed By: #### C EPHEID NEG, COVID19 FLU RSV #### [place] [address] [place] Chloride [Moles/Vol] 105 mmol/L Normal 98-107 [facility] Comment on above: Performed By: #### C EPHEID NEG, COVID19 FLU RSV #### [place] [address] [place] CO2 [Moles/Vol] 26.1 mmol/L Normal 21.0-31.0 [facility] Comment on above: Performed By: #### C EPHEID NEG, COVID19 FLU RSV #### [address] Creatinine [Mass/Vol] 0.66 mg/dL Normal 0.60-1.20 [facility] Comment on above: Performed By: #### C EPHEID NEG, COVID19 FLU RSV #### [address] Creatinine Clr Calc Pharmacy 72.12 Normal [facility] Comment on above: Result Comment: PERF ORMED BY: [place] [address] PATHOLOGIST SLITTER CREASER SLOTTER HELPER ELLA CLAY M.D. Performed By: #### C EPHEID NEG, COVID19 FLU RSV #### [address] GFR/1.73 sq M.predicted MDRD (S/P/Bld) [Vol rate/Area] mL/min/{1.73_m2} Normal [facility] Comment on above: Performed By: #### C EPHEID NEG, COVID19 FLU RSV #### [address] Globulin (S) [Mass/Vol] 2.5 g/dL Normal [facility] Comment on above: Performed By: #### C EPHEID NEG, COVID19 FLU RSV #### [address] Glucose [Mass/Vol] 171 mg/dL High 70-100 [facility] Comment on above: Result Comment: [place] Glucose Reference Range is dependent on time and content of last meal. Glucose of more than 200 mg/dL in a nonstressed, ambulatory subject supports the diagnosis of Diabetes Mellitus. ADA recommended reference range Performed By: #### C EPHEID NEG, COVID19 FLU RSV #### [address] Potassium [Moles/Vol] 4.6 mmol/L Normal 3.5-5.1 [facility] Comment on above: Performed By: #### C EPHEID NEG, COVID19 FLU RSV #### [address] Protein [Mass/Vol] 6.3 g/dL Low 6.4-8.9 [facility] Comment on above: Performed By: #### C EPHEID NEG, COVID19 FLU RSV #### [address] Sodium [Moles/Vol] 138 mmol/L Normal 136-145 [facility] Comment on above: Performed By: #### C EPHEID NEG, COVID19 FLU RSV #### [address] Urea nitrogen [Mass/Vol] 13 mg/dL Normal 7-25 [facility] Comment on above: Performed By: #### C EPHEID NEG, COVID19 FLU RSV #### [address] Albumin [Mass/Vol] 4.1 g/dL Normal 3.5-5.7 [facility] Comment on above: Performed By: #### C EPHEID NEG, COVID19 FLU RSV #### [address] Albumin/Globulin [Mass ratio] 1.5 {ratio} Normal [facility] Comment on above: Performed By: #### C EPHEID NEG, COVID19 FLU RSV #### [address] ALP [Catalytic activity/Vol] 70 U/L Normal 34-104 [facility] Comment on above: Performed By: #### C EPHEID NEG, COVID19 FLU RSV #### [address] ALT [Catalytic activity/Vol] 50 U/L Normal 7-52 [facility] Comment on above: Performed By: #### C EPHEID NEG, COVID19 FLU RSV #### [address] Anion gap [Moles/Vol] 11.9 mmol/L Normal 6.0-15.0 [facility] Comment on above: Performed By: #### C EPHEID NEG, COVID19 FLU RSV #### [address] AST [Catalytic activity/Vol] 57 U/L High 13-39 [facility] Comment on above: Performed By: #### C EPHEID NEG, COVID19 FLU RSV #### [address] Bilirubin [Mass/Vol] 0.2 mg/dL Low 0.3-1.0 [facility] Comment on above: Performed By: #### C EPHEID NEG, COVID19 FLU RSV #### [address] Calcium [Mass/Vol] 9.2 mg/dL Normal 8.6-10.3 [facility] Comment on above: Performed By: #### C EPHEID NEG, COVID19 FLU RSV #### [address] Chloride [Moles/Vol] 103 mmol/L Normal 98-107 [facility] Comment on above: Performed By: #### C EPHEID NEG, COVID19 FLU RSV #### [address] CO2 [Moles/Vol] 28.2 mmol/L Normal 21.0-31.0 [facility] Comment on above: Performed By: #### C EPHEID NEG, COVID19 FLU RSV #### [place] [address] [place] Creatinine [Mass/Vol] 0.87 mg/dL Normal 0.60-1.20 [facility] Comment on above: Performed By: #### C EPHEID NEG, COVID19 FLU RSV #### [place] [address] [place] Creatinine Clr Calc Pharmacy 65.71 Normal [facility] Comment on above: Result Comment: PERF ORMED BY: [place] [address] PATHOLOGIST SLITTER CREASER SLOTTER HELPER ELLA CLAY M.D. Performed By: #### C EPHEID NEG, COVID19 FLU RSV #### [place] [address] [place] GFR/1.73 sq M.predicted MDRD (S/P/Bld) [Vol rate/Area] mL/min/{1.73_m2} Normal [facility] Comment on above: Performed By: #### C EPHEID NEG, COVID19 FLU RSV #### [place] [address] [place] Globulin (S) [Mass/Vol] 2.7 g/dL Normal [facility] Comment on above: Performed By: #### C EPHEID NEG, COVID19 FLU RSV #### [address] Glucose [Mass/Vol] 117 mg/dL High 70-100 [facility] Comment on above: Result Comment: [facility] Glucose Reference Range is dependent on time and content of last meal. Glucose of more than 200 mg/dL in a nonstressed, ambulatory subject supports the diagnosis of Diabetes Mellitus. ADA recommended reference range Performed By: #### C EPHEID NEG, COVID19 FLU RSV #### [address] Potassium [Moles/Vol] 4.1 mmol/L Normal 3.5-5.1 [facility] Comment on above: Result Comment: Hemo lysis is present at a level that could interfere with the result. Contact lab if redraw is required Performed By: #### C EPHEID NEG, COVID19 FLU RSV #### [place] [address] [place] Protein [Mass/Vol] 6.8 g/dL Normal 6.4-8.9 [facility] Comment on above: Performed By: #### C EPHEID NEG, COVID19 FLU RSV #### [place] [address] [place] Sodium [Moles/Vol] 139 mmol/L Normal 136-145 [facility] Comment on above: Performed By: #### C EPHEID NEG, COVID19 FLU RSV #### [facility] [address] [place] [address] [place] Urea nitrogen [Mass/Vol] 16 mg/dL Normal 7-25 [facility] Comment on above: Performed By: #### C EPHEID NEG, COVID19 FLU RSV #### [facility] [address] [place] [address] [place] Creatine Kinaseon 07-05-2024 CK [Catalytic activity/Vol] 113 U/L Normal 30-223 [facility] Comment on above: Performed By: #### C EPHEID NEG, COVID19 FLU RSV #### [address] Creatine kinase [Enzymatic a ctivity/volume] in Serum or PlasmaOrdered By: Trevin Sepulveda on 07-05-2024 CK [Catalytic activity/Vol] Creatine kinase [Enzymatic activity/volume] in Serum or Plasma 30-223 [facility] Creatinine [Mass/volume] in Serum or PlasmaOrdered By: Trevin Sepulveda on 07-05-2024 Creatinine [Mass/Vol] Creatinine [Mass/volume] in Serum or Plasma 0.60-1.20 [facility] Eosinophils Auto (Bld) [#/Vo l]Ordered By: Trevin Sepulveda on 07-05-2024 Eosinophils (Bld) [#/Vol] Automated eosinophil count 0.0-0.45 [facility] Eosinophils/100 WBC Auto (Bl d)Ordered By: Trevin Sepulveda on 07-05-2024 Eosinophils/100 WBC (Bld) Automated eosinophil % . [facility] Erythrocyte distribution wid th Auto (RBC) [Ratio]Ordered By: Trevin Sepulveda on 07-05-2024 Erythrocyte distribution width (RBC) [Ratio] Erythrocyte distribution width [Ratio] by Automated count 11.9-15.3 [facility] Globulin Calc (S) [Mass/Vol] Ordered By: Genie Man on 07-05-2024 Globulin (S) [Mass/Vol] Serum globulin measurement by calculation (mass/volume) [facility] Globulin Calc (S) [Mass/Vol] Ordered By: Trevin Sepulveda on 07-05-2024 Globulin (S) [Mass/Vol] Serum globulin measurement by calculation (mass/volume) [facility] Glucose [Mass/volume] in Ser um or PlasmaOrdered By: Trevin Sepulveda on 07-05-2024 Glucose [Mass/Vol] Glucose [Mass/volume ] in Serum or Plasma High 70-100 [facility] Comment on above: ADA recommended refe rence [...] Blood Cells 2+ Epithelial Cells PERFORMED BY: [place] [address] PATHOLOGIST SLITTER CREASER SLOTTER HELPER ELLA CLAY M.D. Normal [facility] Comment on above: Performed By: #### C EPHEID NEG, COVID19 FLU RSV #### [address] Gram stain microscopyOrdered By: Genie Man on 07-05-2024 Microscopic observation Gram stain Nom (Unsp spec) Gram stain microscopy [facility] Hematocrit Auto (Bld) [Volum e fraction]Ordered By: Trevin Sepulveda on 07-05-2024 Hematocrit (Bld) [Volume fraction] Hematocrit [Volume Fraction] of Blood by Automated count High 34.0-46.4 [facility] Hemoglobin [Mass/volume] in BloodOrdered By: Trevin Sepulveda on 07-05-2024 Hemoglobin (Bld) [Mass/Vol] Hemoglobin [Mass/volume] in Blood High 11.8-15.4 [facility] Leukocytes [#/volume] correc bozena for nucleated erythrocytes in Blood by Automated counOrdered By: Trevin Sepulveda on 07-05-2024 WBC corrected for nucl RBC Auto (Bld) [#/Vol] Leukocytes [#/volume] corrected for nucleated erythrocytes in Blood by Automated coun 3.8-11.6 [facility] Lymphocytes Auto (Bld) [#/Vo l]Ordered By: Trevin Sepulveda on 07-05-2024 Lymphocytes (Bld) [#/Vol] Lymphocytes [#/volume] in Blood by Automated count 1.00-4.8 [facility] Lymphocytes/100 WBC Auto (Bl d)Ordered By: Trevin Sepulveda on 07-05-2024 Lymphocytes/100 WBC (Bld) Lymphocytes/100 leukocytes in Blood by Automated count . [facility] MCH Auto (RBC) [Entitic mass ]Ordered By: Trevin Sepulveda on 07-05-2024 MCH (RBC) [Entitic mass] MCH [Entitic mass] by Automated count 24.7-34.3 [facility] MCHC Auto (RBC) [Mass/Vol]Or dered By: Trevin Sepulveda on 07-05-2024 MCHC (RBC) [Mass/Vol] MCHC [Mass/volume] by Automated count 32.0-35.0 [facility] MCV Auto (RBC) [Entitic vol] Ordered By: Trevin Sepulveda on 07-05-2024 MCV (RBC) [Entitic vol] MCV [Entitic vol ume] by Automated count 80-100 [facility] Monocyte distribution width [Entitic volume] in Blood by AutomatedOrdered By: Genie Man on 07-05-2024 Monocyte distribution width Auto (Bld) [Entitic vol] Monocyte distribution width [Entitic volume] in Blood by Automated 0.00-20.00 [facility] Monocyte distribution width [Entitic volume] in Blood by AutomatedOrdered By: Trevin Sepulveda on 07-05-2024 Monocyte distribution width Auto (Bld) [Entitic vol] Monocyte distribution width [Entitic volume] in Blood by Automated 0.00-20.00 [facility] Monocytes Auto (Bld) [#/Vol] Ordered By: Trevin Sepulveda on 07-05-2024 Monocytes (Bld) [#/Vol] Automated blood monocyte count High 0.0-0.8 [facility] Monocytes/100 WBC Auto (Bld) Ordered By: Trevin Sepulveda on 07-05-2024 Monocytes/100 WBC (Bld) Automated monocyte % . [facility] Natriuretic peptide B [Mass/ Vol]Ordered By: Trevin Sepulveda on 07-05-2024 Natriuretic peptide B (Bld) [Mass/Vol] BNP ser/plas 5-100 [facility] Neutrophils Auto (Bld) [#/Vo l]Ordered By: Trevin Sepulveda on 07-05-2024 Neutrophils (Bld) [#/Vol] Neutrophils [#/volume] in Blood by Automated count 1.8-7.7 [facility] Neutrophils/100 WBC Auto (Bl d)Ordered By: Trevin Sepulveda on 07-05-2024 Neutrophils/100 WBC (Bld) Automated neutrophil % . [facility] No Panel InformationOrdered By: Trevin Sepulveda on 07-05-2024 Estimated GFR (CKD-EPI) > 60.0 mL/Min [facility] Creatinine Clearance (Chem 65.71 [facility] Nucleated erythrocytes [Pres ence] in Blood by Automated countOrdered By: Trevin Sepulveda on 07-05-2024 Nucleated RBC Auto Ql (Bld) Nucleated erythrocytes [Presence] in Blood by Automated count 0-0.5 [facility] Platelet mean volume Auto (B ld) [Entitic vol]Ordered By: Trevin Sepulveda on 07-05-2024 Platelet mean volume (Bld) [Entitic vol] Platelet mean volume [Entitic volume] in Blood by Automated count 6.3-10.7 [facility] Platelets Auto (Bld) [#/Vol] Ordered By: Trevin Sepulveda on 07-05-2024 Platelets (Bld) [#/Vol] Platelets [#/vol ume] in Blood by Automated count 150-450 [facility] Potassium [Moles/volume] in Serum or PlasmaOrdered By: Trevin Sepulveda on 07-05-2024 Potassium [Moles/Vol] Potassium [Moles/volume] in Serum or Plasma 3.5-5.1 [facility] Comment on above: Hemolysis is present at a level that could interfere with the result.Contact lab if redraw is required Protein [Mass/volume] in Ser um or PlasmaOrdered By: Genie Man on 07-05-2024 Protein [Mass/Vol] Protein [Mass/volume ] in Serum or Plasma Low 6.4-8.9 [facility] Protein [Mass/volume] in Ser um or PlasmaOrdered By: Trevin Sepulveda on 07-05-2024 Protein [Mass/Vol] Protein [Mass/volume ] in Serum or Plasma 6.4-8.9 [facility] RBC Auto (Bld) [#/Vol]Ordere d By: Trevin Sepulveda on 07-05-2024 RBC (Bld) [#/Vol] Erythrocytes [#/volume] in Blood by Automated count High 3.60-5.00 [facility] Serum or plasma albumin/glob ulin mass ratioOrdered By: Genie Man on 07-05-2024 Albumin/Globulin [Mass ratio] Serum or plasma albumin/globulin mass ratio [facility] Serum or plasma albumin/glob ulin mass ratioOrdered By: Trevin Sepulveda on 07-05-2024 Albumin/Globulin [Mass ratio] Serum or plasma albumin/globulin mass ratio [facility] Serum or plasma anion gap de terminationOrdered By: Trevin Sepulveda on 07-05-2024 Anion gap [Moles/Vol] Serum or plasma an ion gap determination 6.0-15.0 [facility] Sodium [Moles/volume] in Ser um or PlasmaOrdered By: Trevin Sepulveda on 07-05-2024 Sodium [Moles/Vol] Sodium [Moles/volume ] in Serum or Plasma 136-145 [facility] Troponin I High Sensitivityo n 07-05-2024 Troponin I High Sensitivity 18 High 0-15 [facility] Comment on above: Result Comment: The Troponin units of report have been changed to meet the Chest Pain Accreditation requirement, element EC5.M1l2. Troponin units are changed from pg/ml to ng/L. Also, the decimal is removed and results are in whole numbers. PERFORMED BY: [place] [address] PATHOLOGIST SLITTER CREASER SLOTTER HELPER ELLA CLAY M.D. Performed By: #### C EPHEID NEG, COVID19 FLU RSV #### [address] Troponin I High Sensitivity 27 High 0-15 [facility] Comment on above: Result Comment: The Troponin units of report have been changed to meet the Chest Pain Accreditation requirement, element EC5.M1l2. Troponin units are changed from pg/ml to ng/L. Also, the decimal is removed and results are in whole numbers. PERFORMED BY: [facility] [address] [place] [address] PATHOLOGIST SLITTER CREASER [employer]OTTER HELPER ELLA CLAY M.D. Performed By: #### C EPHEID NEG, COVID19 FLU RSV #### [facility] [address] Troponin I.cardiac [Mass/vol ume] in Serum or Plasma by Detection limit <= 0.01 ng/Ordered By: Genie Man on 07-05-2024 Troponin I.cardiac DL <= 0.01 ng/mL [Mass/Vol] Troponin I.cardiac [Mass/volume] in Serum or Plasma by Detection limit <= 0.01 ng/ High 015 [facility] Comment on above: The Troponin units o [...] by Detection limit <= 0.01 ng/ High [address] Comment on above: The Troponin units o f report have been changed to meet the Chest Pain Accreditation requirement, element EC5.M1l2. Troponin units are changed from pg/ml to ng/L. Also, the decimal is removed and results are in whole numbers. Urea nitrogen [Mass/volume] in Serum or PlasmaOrdered By: Trevin Sepulveda on 07-05-2024 Urea nitrogen [Mass/Vol] Urea nitrogen [Mass/volume] in Serum or Plasma 09-25 [facility] WBC Auto (Bld) [#/Vol]Ordere d By: Trevin Sepulveda on 07-05-2024 WBC (Bld) [#/Vol] Leukocytes [#/volume ] in Blood by Automated count 3.8-11.6 [facility] X-ray reportOrdered By: Alexey West on 2025 Study report [facility] Main [address] [address] XRay Report Signed Patient: Radha Ernandez MR#: [id number] : 1955 Acct:[id number] Age/Sex: 69 / F ADM Date: 5 Loc: 3T Room: [address] [place] [address] Type: ADM IN Attending Dr: Eliu Schmitz [...] West M.D. 07/05/2024 10:42 AM Dictation Location: [place] [address] Transcribed By: [facility] 07/05/24 104 Dictated By: Phillip West MD 07/05/24 104 Signed By: 07/05/24 [employer] [facility] Work Phone: XR chest 1V portableon 07-05 XR chest 1V portable [facility] Main [address] [address] XRay Report Signed Patient: Radha Ernandez MR#: [id number] 0 : 1955 Acct:[id number] Age/Sex: 69 / F ADM Date: 07/05/24 Loc: 3T Room: [address] [place] [address] Type: ADM IN Attending Dr: Eliu Schmitz [...] West M.D. 07/05/2024 10:42 AM Dictation Location: [facility] Transcribed By: JUNIOR 07/05/24 1042 Dictated By: Phillip West MD 07/05/24 1041 Signed By: 07/05/24 1042 Normal [facility] COVID Cepheid NegativeOrdere d By: Trevin Sepulveda on 07-04-2024 SARS-CoV-2 (COVID-19) Ab IA Ql COVID Cepheid Negative [facility] Comment on above: This is a duplicate [...] or Cepheid Disclaimer revoked sooner. PERFORMED BY: [place] [address] PATHOLOGIST SLITTER CREASER SLOTTER HELPER ELLA CLAY M.D. Normal [facility] Comment on above: Performed By: #### C EPHEID NEG, COVID19 FLU RSV #### [address] [address] [facility] Cepheid COVID PCR Negativeon 07-04-2024 SARS-CoV-2 (COVID-19) RNA CHRISTY+probe Ql (Unsp spec) Negative Normal Negative [facility] Comment on above: Result Comment: This is a duplicate Cepheid Xpert Xpress CoV-2/Flu/RSV Plus RNA by RT-PCR result to be used for statistical tracking purpose only. PERFORMED BY: [place] [id number] PATHOLOGIST SLITTER CREASER SLOTTER HELPER ELLA CLAY M.D. Performed By: #### C EPHEID NEG, COVID19 FLU RSV #### [address] [address] [facility] ECG 12 lead ECGon 07-04-2024 ECG 12 lead ECG [facility] Main [place] [address] [place] [address] Electrocardiograph Report Signed Patient: Radha Ernandez MR#: [id number] 0 : 1955 Acct:[id number] Age/Sex: 69 / F ADM Date: 07/05/24 Loc: Room: [address] [place] [address] Type: ADM IN Attending Dr: Eliu Schmitz [...] ECGs available Confirmed by TREVIN SEPULVEDA MD ([id number]) on 07/05/2024 10:03:37 PM Referred By: Electronically Signed By: TREVIN SEPULVEDA MD Transcribed By: MUS Signed By Trevin Sepulveda Jr, MD 2202 Normal [facility] Respiratory specimen influen za A virus, influenza B virus, respiratory syncytical virOrdered By: Trevin Sepulveda on 07-04-2024 SARS-CoV-2 (COVID-19) RNA CHRISTY+probe Ql (Unsp spec) Respiratory specimen influenza A virus, influenza B virus, respiratory syncytical vir [facility] ALL CBC WITH AUTO DIFFon BASOPHILS ABSOLUTE AUTO 0.0 [facility] Basophils/100 WBC (Bld) 0.3 % 0.2 - 2.0 % [facility] Eosinophils/100 WBC (Bld) 3.2 % 0.9 - 7.0 % [facility] Erythrocyte distribution width (RBC) [Ratio] 12.6 % 11.0 - 15.0 % [facility] Hematocrit (Bld) [Volume fraction] 47.2 % 36.0 - 48.0 % [facility] Hemoglobin (Bld) [Mass/Vol] 16.1 g/dL High 12.0 - 16.0 g/dL [facility] IMMATURE GRANULOCYTES ABS AUTO 0.02 [facility] Immature granulocytes/100 WBC (Bld) 0.2 % 0.0 - 0.5 % [facility] Interpretation and review of laboratory results Abnormal [facility] LYMPHOCYTES ABSOLUTE AUTO 3.9 High [facility] Lymphocytes/100 WBC (Bld) 39.7 % 20.5 - 60.0 % [facility] MCH (RBC) [Entitic mass] 32.1 pg 26.7 - 34.0 pg [facility] MCHC (RBC) [Mass/Vol] 34.1 g/dL 29.9 - 35.2 g/dL [facility] MCV (RBC) [Entitic vol] 94.2 fL 81.0 - 99.0 fL [facility] MONOCYTES ABSOLUTE AUTO 0.8 N [facility] Monocytes/100 WBC (Bld) 8.2 % 1.7 - 12.0 % [facility] NEUTROPHILS ABSOLUTE AUTO 4.7 [facility] Neutrophils/100 WBC (Bld) 48.4 % 43.0 - 75.0 % [facility] Platelet mean volume (Bld) [Entitic vol] 10.4 fL 9.5 - 13.5 fL [facility] TBH EO # 0.3 [facility] PLT [address] [facility] RBC 5.01 [facility] WBC 9.7 [facility] ALL BASIC METABOLIC PANELon 11-20-2023 Anion gap [Moles/Vol] 11.6 mmol/L [facility] Calcium [Mass/Vol] 8.7 mg/dL 8.5 - 10. 1 mg/dL [facility] Chloride [Moles/Vol] 108 mmol/L High 98 - 10 7 mmol/L [facility] CO2 [Moles/Vol] 27.6 mmol/L 21.0 - 32.0 mmol/L [facility] Creatinine [Mass/Vol] 0.72 mg/dL 0.55 - 1.02 mg/dL [facility] GFR/1.73 sq M.predicted CKD-EPI (S/P/Bld) [Vol rate/Area] >60 60 - PINF [facility] Glucose [Mass/Vol] 114 mg/dL High 74 - 106 mg/dL [facility] Interpretation and review of laboratory results Abnormal [facility] Potassium [Moles/Vol] 4.2 mmol/L 3.5 - 5.1 mmol/L [facility] Sodium [Moles/Vol] 143 mmol/L 136 - 145 mmol/L [facility] TB EGFR-NON AF ANDORRAN >60 60 - PINF [facility] Urea nitrogen [Mass/Vol] 15.0 mg/dL 7.0 - 18.0 mg/dL [facility] Urea nitrogen/Creatinine [Mass ratio] 20.8 mg/mg [facility] ALL CBC WITH AUTO DIFFon BASOPHILS ABSOLUTE AUTO 0.0 N [facility] Basophils/100 WBC (Bld) 0.5 % 0.2 - 2.0 % [facility] Eosinophils/100 WBC (Bld) 3.5 % 0.9 - 7.0 % [facility] Erythrocyte distribution width (RBC) [Ratio] 12.1 % 11.0 - 15.0 % [facility] Hematocrit (Bld) [Volume fraction] 41.9 % 36.0 - 48.0 % [facility] Hemoglobin (Bld) [Mass/Vol] 14.0 g/dL 12.0 - 16.0 g/dL [facility] IMMATURE GRANULOCYTES ABS AUTO 0.02 [facility] Immature granulocytes/100 WBC (Bld) 0.2 % 0.0 - 0.5 % [facility] LYMPHOCYTES ABSOLUTE AUTO 3.0 [facility] Lymphocytes/100 WBC (Bld) 36.2 % 20.5 - 60.0 % [facility] MCH (RBC) [Entitic mass] 31.8 pg 26.7 - 34.0 pg [facility] MCHC (RBC) [Mass/Vol] 33.4 g/dL 29.9 - 35.2 g/dL [facility] MCV (RBC) [Entitic vol] 95.2 fL 81.0 - 99.0 fL [facility] MONOCYTES ABSOLUTE AUTO 0.7 N [facility] Monocytes/100 WBC (Bld) 8.7 % 1.7 - 12.0 % [facility] NEUTROPHILS ABSOLUTE AUTO 4.2 [facility] Neutrophils/100 WBC (Bld) 50.9 % 43.0 - 75.0 % [facility] Platelet mean volume (Bld) [Entitic vol] 10.2 fL 9.5 - 13.5 fL [facility] TBH EO # 0.3 [facility] PLT [address] [facility] RBC 4.40 [facility] WBC 8.2 [facility] EXTERNAL PHOTOS OU (BOTH EYE S)on 10-09-2023 [facility] Radiology Study observation (narrative) [facility] PTOSIS VISUAL FIELD OU (BOTH EYES)on 10-09-2023 [facility] Radiology Study observation (narrative) [facility] CBC AUTO DIFFon 04-24-2022 BASO # 0.1 103/ul Normal 0.0-0.1 [facility] Comment on above: Performed By: #### C BC #### [facility] [address] [place] [address] Dr. Brigette Peñaloza Basophils/100 WBC (Bld) 0.7 % Normal 0.2-2.0 [facility] Comment on above: Performed By: #### C BC #### [facility] [address] [place] [address] Dr. Brigette Peñaloza EO # 0.3 103/ul Normal 0.0-0.7 [facility] Comment on above: Performed By: #### C BC #### [facility] [address] [place] [address] Dr. Brigette Peñaloza Eosinophils/100 WBC (Bld) 4.9 % Normal 0.9-7.0 [facility] Comment on above: Performed By: #### C BC #### [facility] [address] [place] [address] Dr. Brigette Peñaloza Erythrocyte distribution width (RBC) [Ratio] 12.7 % Normal 11.0-15.0 [facility] Comment on above: Performed By: #### C BC #### [facility] [address] [place] [address] Dr. Brigette Peñaloza Hematocrit (Bld) [Volume fraction] 48.0 % Normal 36.0-48.0 [facility] Comment on above: Performed By: #### C BC #### [facility] [address] [place] [address] Dr. Brigette Peñaloza Hemoglobin (Bld) [Mass/Vol] 16.1 g/dL Critically high 12.0-16.0 [facility] Comment on above: Performed By: #### C BC #### [facility] [address] [place] [address] Dr. Brigette Peñaloza IG # 0.02 10e3/ul Normal 0.00-0.03 [facility] Comment on above: Performed By: #### C BC #### [facility] [address] [place] [address] Dr. Brigette Peñaloza IG % 0.3 % Normal 0.0-0.5 [facility] Comment on above: Performed By: #### C BC #### [facility] [address] [place] [address] Dr. Brigette Peñaloza LYMPH # 2.7 103/ul Normal 1.2-3.8 [facility] Comment on above: Performed By: #### C BC #### [facility] [address] [place] [address] Dr. Brigette Peñaloza Lymphocytes/100 WBC (Bld) 39.2 % Normal 20.5-60.0 [facility] Comment on above: Performed By: #### C BC #### [facility] [address] [place] [address] Dr. Brigette Peñaloza MANUAL DIFF REQ NO Normal [facility] Comment on above: Performed By: #### C BC #### [facility] [address] [place] [address] Dr. Brigette Peñaloza MCH (RBC) [Entitic mass] 30.3 pg Normal 26.7-34.0 [facility] Comment on above: Performed By: #### C BC #### [facility] [address] [place] [address] Dr. Brigette Peñaloza MCHC (RBC) [Mass/Vol] 33.5 g/dL Normal 29.9-35.2 [facility] Comment on above: Performed By: #### C BC #### [facility] [address] [place] [address] Dr. Brigette Peñaloza MCV (RBC) [Entitic vol] 90.4 fL Normal 81.0-99.0 [facility] Comment on above: Performed By: #### C BC #### [facility] [address] [place] [address] Dr. Brigette Peñaloza MONO # 0.7 103/ul Normal 0.3-0.8 [facility] Comment on above: Performed By: #### C BC #### [facility] [address] [place] [address] Dr. Briegtte Peñaloza Monocytes/100 WBC (Bld) 9.9 % Normal 1.7-12.0 [facility] Comment on above: Performed By: #### C BC #### [facility] [address] [place] [address] Dr. Brigette Peñaloza NEUT # 3.1 103/ul Normal 1.4-6.5 [facility] Comment on above: Performed By: #### C BC #### [facility] [address] [place] [address] Dr. Brigette Peñaloza Neutrophils/100 WBC (Bld) 45.0 % Normal 43.0-75.0 [facility] Comment on above: Performed By: #### C BC #### [facility] [address] [place] [address] Dr. Brigette Peñaloza Platelet mean volume (Bld) [Entitic vol] 10.2 fL Normal 9.5-13.5 [facility] Comment on above: Performed By: #### C BC #### [facility] [address] [place] [address] Dr. Brigette Peñaloza PLT 283 103/ul Normal 150-450 [facility] Comment on above: Performed By: #### C BC #### [facility] [address] [place] [address] Dr. Brigette Peñaloza RBC 5.31 106/ul Normal 4.20-5.40 [facility] Comment on above: Performed By: #### C BC #### [facility] [address] [place] [address] Dr. Brigette Peñaloza WBC 7.0 103/ul Normal 4.0-11.0 [facility] Comment on above: Performed By: #### C BC #### [facility] [address] [place] [address] Dr. Brigette Peñaloza GLYCOHEMOGLOBIN A1Con 2022 ADA RECOMMENDATION SEE BELOW Normal [facility] Comment on above: Result Comment: ADA RECOMMENDED LIMIT 4.0 - 6.0 ADA THERAPEUTIC TARGET < 7.0 ACTION SUGGESTED > 7.0 Performed By: #### A 1C #### [facility] [address] [place] [address] Dr. Brigette Peñaloza Glucose [Mass/Vol] 117 mg/dL Normal [facility] Comment on above: Performed By: #### A 1C #### [facility] [address] [place] [address] [address] Brigette Peñaloza HbA1c (Bld) [Mass fraction] 5.7 % Normal 4.5-6.2 [facility] Comment on above: Performed By: #### A 1C #### [facility] [address] [place] [address] Dr. Brigette Peñaloza LIPID PROFILEon 04-24-2022 CHOL-HDL RATIO NORM SEE BELOW Normal [facility] Comment on above: Result Comment: 3.3 - 4.4 LOW RISK 4.4 - 7.1 AVERAGE RISK 7.1 - 11.0 MODERATE RISK >11.0 HIGH RISK Performed By: #### L IPID, TSH, LIVER, BMP #### [facility] [address] [place] [address] Dr. Brigette Peñaloza Cholesterol [Mass/Vol] 187 mg/dL Normal <=200 [facility] Comment on above: Performed By: #### L IPID, TSH, LIVER, BMP #### [facility] [address] [place] [address] [address] Brigette Peñaloza Cholesterol in HDL [Mass/Vol] 54 mg/dL Normal 40-60 [facility] Comment on above: Performed By: #### L IPID, TSH, LIVER, BMP #### [facility] [address] [place] [address] [address] Brigette Peñaloza Cholesterol in LDL [Mass/Vol] 105.6 mg/dL Normal [facility] Comment on above: Performed By: #### L IPID, TSH, LIVER, BMP #### [facility] [address] [place] [address] [address] Brigette Peñaloza Cholesterol.total/Mini sterol in HDL [Mass ratio] 3.5 {ratio} Normal [facility] Comment on above: Performed By: #### L IPID, TSH, LIVER, BMP #### [facility] [address] [place] [address] [address] Brigette Peñaloza HDL NORMAL > or = 60 mg/dl - LO W CARDIOVASCULAR RISK <40 mg/dl - HIGH CARDIOVASCULAR RISK Normal [facility] Comment on above: Performed By: #### L IPID, TSH, LIVER, BMP #### [facility] [address] [place] [address] [address] Brigette Peñaloza LDL CALC NORMAL SEE BELOW Normal [facility] Comment on above: Result Comment: <100 mg/dl OPTIMAL 100 - 129 mg/dl NEAR OR ABOVE OPTIMAL 130 - 159 mg/dl BORDERLINE HIGH 160 - 189 mg/dl HIGH >190 mg/dl VERY HIGH Performed By: #### L IPID, TSH, LIVER, BMP #### [facility] [address] [place] [address] [address] Brigette Peñaloza Triglyceride [Mass/Vol] 137 mg/dL Normal <=150 T [facility] Comment on above: Performed By: #### L IPID, TSH, LIVER, BMP #### [facility] [address] [place] [address] Dr. Brigette Peñaloza VLDL CALC 27.4 mg/dL Normal [facility] Comment on above: Performed By: #### L IPID, TSH, LIVER, BMP #### [facility] [address] [place] [address] [address] Brigette Peñaloza LIVER PROFILEon 04-24-2022 Albumin [Mass/Vol] 3.6 g/dL Normal 3.4-5.0 [facility] Comment on above: Performed By: #### L IPID, TSH, LIVER, BMP #### [facility] [address] [place] [address] Dr. Brigette Peñaloza Albumin/Globulin [Mass ratio] 1.0 {ratio} Normal [facility] Comment on above: Performed By: #### L IPID, TSH, LIVER, BMP #### [facility] [address] [place] [address] Dr. Brigette Peñaloza ALP [Catalytic activity/Vol] 97 U/L Normal 46-116 [facility] Comment on above: Performed By: #### L IPID, TSH, LIVER, BMP #### [facility] [address] [place] [address] [address] Brigette Peñaloza ALT [Catalytic activity/Vol] 41 U/L Normal 14-59 [facility] Comment on above: Performed By: #### L IPID, TSH, LIVER, BMP #### [facility] [address] [place] [address] [address] Brigette Peñaloza AST [Catalytic activity/Vol] 24 U/L Normal 15-37 [facility] Comment on above: Performed By: #### L IPID, TSH, LIVER, BMP #### [facility] [address] [place] [address] Dr. Brigette Peñaloza BILI, CONJUGATED 0.1 mg/dL Normal 0.0-0.2 [facility] Comment on above: Performed By: #### L IPID, TSH, LIVER, BMP #### [facility] [address] [place] [address] Dr. Brigette Peñaloza Bilirubin [Mass/Vol] 0.3 mg/dL Normal 0.2-1.0 [facility] Comment on above: Performed By: #### L IPID, TSH, LIVER, BMP #### [facility] [address] [place] [address] Dr. Brigette Peñaloza Globulin (S) [Mass/Vol] 3.5 g/dL Normal T [facility] Comment on above: Performed By: #### L IPID, TSH, LIVER, BMP #### [facility] [address] [place] [address] Dr. Brigette Peñaloza Protein [Mass/Vol] 7.1 g/dL Normal 6.4-8.2 [facility] Comment on above: Performed By: #### L IPID, TSH, LIVER, BMP #### [facility] [address] [place] [address] Dr. Brigette Peñaloza PROF CHEM 8 (BAS METB)on Anion gap [Moles/Vol] 8.7 mmol/L Normal [facility] Comment on above: Performed By: #### L IPID, TSH, LIVER, BMP #### [facility] [address] [place] [address] [address] Brigette Peñaloza Calcium [Mass/Vol] 9.1 mg/dL Normal 8.5-10.1 [facility] Comment on above: Performed By: #### L IPID, TSH, LIVER, BMP #### [facility] [address] [place] [address] Dr. Brigette Peñaloza Chloride [Moles/Vol] 106 mmol/L Normal 98-107 [facility] Comment on above: Performed By: #### L IPID, TSH, LIVER, BMP #### [facility] [address] [place] [address] Dr. Brigette Peñaloza CO2 [Moles/Vol] 29.7 mmol/L Normal 21.0-32.0 [facility] Comment on above: Performed By: #### L IPID, TSH, LIVER, BMP #### [facility] [address] [place] [address] Dr. Brigette Peñaloza Creatinine [Mass/Vol] 0.81 mg/dL Normal 0.55-1.02 [facility] Comment on above: Performed By: #### L IPID, TSH, LIVER, BMP #### [facility] [address] [place] [address] Dr. Brigette Peñaloza EGFR-AF ANDORRAN >60 Normal >=60 [facility] Comment on above: Performed By: #### L IPID, TSH, LIVER, BMP #### [facility] [address] [place] [address] Dr. Brigette Peñaloza EGFR-NON AF ANDORRAN >60 Normal >=60 [facility] Comment on above: Performed By: #### L IPID, TSH, LIVER, BMP #### [facility] [address] [place] [address] Dr. Brigette Peñaloza Glucose [Mass/Vol] 114 mg/dL Critically high 74-106 [facility] Comment on above: Performed By: #### L IPID, TSH, LIVER, BMP #### [facility] [address] [place] [address] [address] Brigette Peñaloza Potassium [Moles/Vol] 4.4 mmol/L Normal 3.5-5.1 [facility] Comment on above: Performed By: #### L IPID, TSH, LIVER, BMP #### [facility] [address] [place] [address] [address] Brigette Peañloza Sodium [Moles/Vol] 140 mmol/L Normal 136-145 [facility] Comment on above: Performed By: #### L IPID, TSH, LIVER, BMP #### [facility] [address] [place] [address] Dr. Brigette Peñaloza Urea nitrogen [Mass/Vol] 9.0 mg/dL Normal 7.0-18.0 [facility] Comment on above: Performed By: #### L IPID, TSH, LIVER, BMP #### [facility] [address] [place] [address] Dr. Brigette Peñaloza Urea nitrogen/Creatinine [Mass ratio] 11.1 mg/mg Normal [facility] [place] Comment on above: Performed By: #### L IPID, TSH, LIVER, BMP #### [facility] [address] [place] [address] Dr. Brigette Peñaloza TSHon 04-24-2022 TSH 1.598 uIU/mL Normal 0.358-3.740 [facility] Comment on above: Performed By: #### L IPID, TSH, LIVER, BMP #### [facility] [address] [place] [address] Dr. Brigette Peñaloza VITAMIN D 25 OHon 04-24-2022 VIT D 25-OH 50.4 ng/mL Normal [facility] [place] Comment on above: Performed By: #### V ITAD #### [facility] [address] [place] [address] Dr. Brigette Peñaloza VIT D RANGES SEE BELOW Normal [facility] [place] Comment on above: Result Comment: <20 ng/mL Vit D deficient 20 - <30 ng/mL Vit D insufficient 30 - 100 ng/mL Vit D sufficient >100 ng/mL Potential Toxicity Performed By: #### V ITAD #### [facility] [address] [address] [address] Brigette Peñaloza Vital Signs Date Time Vital Sign Value Performing Clinician Facility 11-18-2024 07:59-0400 Body height 167.64 cm Jignesh Saez MD Work Phone: [facility] 11-18-2024 07:59-0400 Body mass index (BMI) [Ratio] 30.2 kg/m2 Jignesh Saez MD Work Phone: [facility] 11-18-2024 07:59-0400 Body temperature 9.3 [degF] Jignesh Saez MD Work Phone: [facility] 11-18-2024 07:59-0400 Body weight 84.82 kg Jignesh Saez MD Work Phone: [facility] 11-18-2024 07:59-0400 Diastolic blood pressure 72 mm[Hg] Jignesh Saez MD Work Phone: [facility] 11-18-2024 07:59-0400 Heart rate 73 /min Jignesh Saez MD Work Phone: [facility] 11-18-2024 07:59-0400 Respiratory rate 24 /min Jignesh Saez MD Work Phone: [facility] 11-18-2024 07:59-0400 SaO2% (BldA) [Mass fraction] 91 % Jignesh Saez MD Work Phone: [facility] 11-18-2024 07:59-0400 Systolic blood pressure 140 mm[Hg] Jignesh Saez MD Work Phone: [facility] 10-21-2024 10:05-0400 Body height 167.6 cm [facility]ca [facility]son [facility] 10-21-2024 10:05-0400 Body mass index (BMI) [Ratio] 30.28 kg/m2 Francesca Munson DO Work Phone: [facility] 10-21-2024 10:05-0400 Body weight 85.09 kg Francesca Munson DO Work Phone: [facility] 10-21-2024 10:05-0400 Diastolic blood pressure 85 mm[Hg] Francesca Munson DO Work Phone: [facility] 10-21-2024 10:05-0400 Heart rate 70 /min Francesca Munson DO Work Phone: [facility] 10-21-2024 10:05-0400 Systolic blood pressure 132 mm[Hg] Francesca Munson DO Work Phone: [facility] 10-13-2024 10:09-0400 Body height 167.6 cm Jignesh Saez MD Work Phone: [facility] 10-13-2024 10:09-0400 Body mass index (BMI) [Ratio] 30.51 kg/m2 Jignesh Saez MD Work Phone: [facility] 10-13-2024 10:09-0400 Body temperature 96.4 [degF] Jignesh Saez MD Work Phone: [facility] 10-13-2024 10:09-0400 Body weight 85.73 kg Jignesh Saez MD Work Phone: [facility] 10-13-2024 10:09-0400 Diastolic blood pressure 78 mm[Hg] Jignesh Saez MD Work Phone: [facility] 10-13-2024 10:09-0400 Heart rate 71 /min Jignesh Saez MD Work Phone: [facility] 10-13-2024 10:09-0400 Respiratory rate 22 /min Jignesh Saez MD Work Phone: [facility] 10-13-2024 10:09-0400 SaO2% (BldA) [Mass fraction] 94 % Jignesh Saez MD Work Phone: [facility] 10-13-2024 10:09-0400 Systolic blood pressure 138 mm[Hg] Jignesh Saez MD Work Phone: [facility] 09-10-2024 11:47-0400 Body height 167.6 cm Jignesh Saez MD Work Phone: [facility] 09-10-2024 11:47-0400 Body mass index (BMI) [Ratio] 30.83 kg/m2 Jignesh Saez MD Work Phone: [facility] 09-10-2024 11:47-0400 Body temperature 96.6 [degF] Jignesh Saez MD Work Phone: [facility] 09-10-2024 11:47-0400 Body weight 86.64 kg Jignesh Saez MD Work Phone: [facility] 09-10-2024 11:47-0400 Diastolic blood pressure 66 mm[Hg] Jignesh Saez MD Work Phone: [facility] 09-10-2024 11:47-0400 Heart rate 82 /min Jignesh Saez MD Work Phone: [facility] 09-10-2024 11:47-0400 Respiratory rate 22 /min Jignesh Saez MD Work Phone: [facility] 09-10-2024 11:47-0400 SaO2% (BldA) [Mass fraction] 98 % Jignesh Saez MD Work Phone: [facility] 09-10-2024 11:47-0400 Systolic blood pressure 114 mm[Hg] Jingesh Saez MD Work Phone: [facility] 07-15-2024 11:00-0400 Body height 167.6 cm Jignesh Saez MD Work Phone: [facility] 07-15-2024 11:00-0400 Body mass index (BMI) [Ratio] 30.67 kg/m2 Jignesh Saez MD Work Phone: [facility] 07-15-2024 11:00-0400 Body temperature 97.3 [degF] Jignesh Saez MD Work Phone: [facility] 07-15-2024 11:00-0400 Body weight 86.18 kg Jignesh Saez MD Work Phone: [facility] 07-15-2024 11:00-0400 Diastolic blood pressure 82 mm[Hg] Jignesh Saez MD Work Phone: [facility] 07-15-2024 11:00-0400 Heart rate 81 /min Jignesh Saez MD Work Phone: [facility] 07-15-2024 11:00-0400 Respiratory rate 22 /min Jignesh Saez MD Work Phone: [facility] 07-15-2024 11:00-0400 SaO2% (BldA) [Mass fraction] 93 % Jignesh Saez MD Work Phone: [facility] 07-15-2024 11:00-0400 Systolic blood pressure 124 mm[Hg] Jignesh Saez MD Work Phone: [facility] 07-08-2024 12:03-0400 Heart rate 86 /min Trevin Sepulveda MD Work Phone: [facility] 07-08-2024 12:03-0400 Respiratory rate 20 /min Trevin Sepulveda MD Work Phone: [facility] 07-08-2024 12:00-0400 Body temperature 98.1 [degF] Trevin Sepulveda MD Work Phone: [facility] 07-08-2024 12:00-0400 Diastolic blood pressure 76 mm[Hg] Trevin Sepulveda MD Work Phone: [facility] 07-08-2024 12:00-0400 Inhaled oxygen flow rate 3 L/min Trevin Sepulveda MD Work Phone: [facility] 07-08-2024 12:00-0400 SaO2% (BldA) [Mass fraction] 92 % Trevin Sepulveda MD Work Phone: [facility] 07-08-2024 12:00-0400 Systolic blood pressure 143 mm[Hg] Trevin Sepulveda MD Work Phone: [facility] 07-08-2024 05:46-0400 Body weight 89.9 kg Trevin Sepulveda MD Work Phone: [facility] 07-06-2024 16:50-0400 Body height 167.64 cm Trevin Sepulveda MD Work Phone: [facility] 07-05-2024 02:30-0400 Diastolic blood pressure 92 mm[Hg] Trevin Sepulveda MD Work Phone: [facility] 07-05-2024 02:30-0400 Heart rate 82 /min Trevin Sepulveda MD Work Phone: [facility] 07-05-2024 02:30-0400 Inhaled oxygen flow rate 2 L/min Trevin Sepulveda MD Work Phone: [facility] 07-05-2024 02:30-0400 Respiratory rate 20 /min Trevin Sepulveda MD Work Phone: [facility] 07-05-2024 02:30-0400 SaO2% (BldA) [Mass fraction] 98 % Trevin Sepulveda MD Work Phone: [facility] 07-05-2024 02:30-0400 Systolic blood pressure 135 mm[Hg] Trevin Sepulveda MD Work Phone: [facility] 07-04-2024 23:52-0400 Body temperature 98 [degF] Trevin Sepulveda MD Work Phone: [facility] 07-04-2024 23:48-0400 Body height 167.64 cm Trevin Sepulveda MD Work Phone: [facility] 07-04-2024 23:48-0400 Body weight 84 kg Trevin Sepulveda MD Work Phone: [facility] 06-29-2024 14:32-0400 Body height 167.6 cm Jignesh Saez MD Work Phone: [facility] 06-29-2024 14:32-0400 Body mass index (BMI) [Ratio] 29.86 kg/m2 Jignesh Saez MD Work Phone: [facility] 06-29-2024 14:32-0400 Body temperature 96.6 [degF] Jignesh Saez MD Work Phone: [facility] 06-29-2024 14:32-0400 Body weight 83.92 kg Jignesh Saez MD Work Phone: [facility] 06-29-2024 14:32-0400 Diastolic blood pressure 58 mm[Hg] Jignesh Saez MD Work Phone: [facility] 06-29-2024 14:32-0400 Heart rate 85 /min Jignesh Saez MD Work Phone: [facility] 06-29-2024 14:32-0400 Respiratory rate 24 /min Jignesh Saez MD Work Phone: [facility] 06-29-2024 14:32-0400 SaO2% (BldA) [Mass fraction] 91 % Jignesh Saez MD Work Phone: [facility] 06-29-2024 14:32-0400 Systolic blood pressure 106 mm[Hg] Jignesh Saez MD Work Phone: [facility] 01-08-2024 11:05-0500 Body height 167.6 cm Jignesh Saez MD Work Phone: [facility] 01-08-2024 11:05-0500 Body mass index (BMI) [Ratio] 29.05 kg/m2 Jignesh Saez MD Work Phone: [facility] 01-08-2024 11:05-0500 Body temperature 96.01 [degF] Jignesh Saez MD Work Phone: [facility] 01-08-2024 11:05-0500 Body weight 81.65 kg Jignesh Saez MD Work Phone: [facility] 01-08-2024 11:05-0500 Diastolic blood pressure 74 mm[Hg] Jignesh Saez MD Work Phone: [facility] 01-08-2024 11:05-0500 Heart rate 82 /min Jignesh Saez MD Work Phone: [facility] 01-08-2024 11:05-0500 Respiratory rate 22 /min Jignesh Saez MD Work Phone: [facility] 01-08-2024 11:05-0500 SaO2% (BldA) [Mass fraction] 92 % Jignesh Saez MD Work Phone: [facility] 01-08-2024 11:05-0500 Systolic blood pressure 126 mm[Hg] Jignesh Saez MD Work Phone: [facility] 12-10-2023 14:06-0400 Body height 167.6 cm Jignesh Saez MD Work Phone: [facility] 12-10-2023 14:06-0400 Body mass index (BMI) [Ratio] 28.08 kg/m2 Jignesh Saez MD Work Phone: [facility] 12-10-2023 14:06-0400 Body temperature 95.7 [degF] Jignesh Saez MD Work Phone: [facility] 12-10-2023 14:06-0400 Body weight 78.93 kg Jignesh Saez MD Work Phone: [facility] 12-10-2023 14:06-0400 Diastolic blood pressure 66 mm[Hg] Jignesh Saez MD Work Phone: [facility] 12-10-2023 14:06-0400 Heart rate 31 /min Jignesh Saez MD Work Phone: [facility] 12-10-2023 14:06-0400 Respiratory rate 22 /min Jignesh Saez MD Work Phone: [facility] 12-10-2023 14:06-0400 SaO2% (BldA) [Mass fraction] 93 % Jignesh Saez MD Work Phone: [facility] 12-10-2023 14:06-0400 Systolic blood pressure 110 mm[Hg] Jignesh Saez MD Work Phone: [facility] 04-11-2023 13:13-0500 Body height 167.6 cm Jignesh Saez MD Work Phone: [facility] 04-11-2023 13:13-0500 Body mass index (BMI) [Ratio] 29.7 kg/m2 Jignesh Saez MD Work Phone: [facility] 04-11-2023 13:13-0500 Body temperature 97.3 [degF] Jignesh Saez MD Work Phone: [facility] 04-11-2023 13:13-0500 Body weight 83.46 kg Jignesh Saez MD Work Phone: [facility] 04-11-2023 13:13-0500 Diastolic blood pressure 70 mm[Hg] Jignesh Saez MD Work Phone: [facility] 04-11-2023 13:13-0500 Heart rate 80 /min Jignesh Saez MD Work Phone: [facility] 04-11-2023 13:13-0500 SaO2% (BldA) [Mass fraction] 95 % Jignesh Saez MD Work Phone: [facility] 04-11-2023 13:13-0500 Systolic blood pressure 130 mm[Hg] Jignesh Saez MD Work Phone: [facility] 05-13-2022 15:30-0400 Body height 165.74 cm Rivka Reyez Other [employer] Other 05-13-2022 15:30-0400 Body mass index (BMI) [Ratio] 30.45 kg/m2 Rivka Reyez Other [employer] Other 05-13-2022 15:30-0400 Body temperature 98.9 [degF] Rivka Reyez Other [employer] Other 05-13-2022 15:30-0400 Body weight 83.64 kg Rivka Reyez Other [employer] Other 05-13-2022 15:30-0400 Diastolic blood pressure 69 mm[Hg] Rivka Reyez Other [employer] Other 05-13-2022 15:30-0400 SaO2% (BldA) [Mass fraction] 93 % Rivka Reyez Other [employer] Other 05-13-2022 15:30-0400 Systolic blood pressure 116 mm[Hg] Rivka Reyez Other [employer] Other Encounters Encounter Date Encounter Type Care Provider Facility Start: 12-02-2024 End: 12-02-2024 Telephone encounter [facility]queta Colon [facility] Start: 12-01-2024 End: 12-01-2024 Orders Only Tram Whalen [facility] Comment on above: Chest pain, unspecif ied type; Bilateral upper abdominal pain; Left lower quadrant abdominal pain Start: 11-20-2024 End: 11-20-2024 Telephone encounter Enriqueta Colon [facility] Start: 11-18-2024 End: 11-18-2024 ambulatory Jignesh Saez MD Work Phone: [facility] Work Phone: Start: 11-18-2024 End: 11-18-2024 Patient encounter procedure Jignesh Saez MD -[facility] [place] Work Phone: Start: 11-05-2024 End: 11-05-2024 Telephone encounter Anitra Tan CMA [facility] Start: 10-28-2024 End: 10-29-2024 Telephone encounter Anitra Britney [facility] Start: 10-22-2024 End: 10-22-2024 Clinisync Result Encounter Jignesh Saez MD Work Phone: [facility] Unsolicited Start: 10-22-2024 End: 10-22-2024 Clinisync Result Encounter Jignesh Saez MD Work Phone: [facility] Unsolicited Start: 10-21-2024 End: 10-21-2024 ambulatory JIGNESH SAEZ [facility] Start: 10-21-2024 End: 10-21-2024 Office outpatient new 45 minutes Francesca Munson DO Work Phone: [facility] Comment on above: Chest pain, unspecif ied type (Primary Dx); Bilateral upper abdominal pain; Left lower quadrant abdominal pain; Asymptomatic cholelithiasis Start: 10-20-2024 End: 10-20-2024 Orders Only Not In System Ref Prov [facility] Start: 10-13-2024 End: 10-13-2024 Bamboo [...] of medications Start: 09-10-2024 End: 09-10-2024 ambulatory JIGNESH SAEZ Not Available Start: 07-28-2024 End: 07-28-2024 Clinisync Result Encounter Jignesh Saez MD Work Phone: [facility] External Department Unsolicited Start: 07-28-2024 End: 07-28-2024 [...] of inpatient Trevin Sepulveda MD Work Phone: [facility] Work Phone: Start: 06-29-2024 End: [...] End: 10-09-2023 ambulatory BRIEN WESTBROOK Facility:[facility] Start: 10-09-2023 End: 10-09-2023 Office outpatient new [...] 05-13-2022 End: 05-13-2022 ambulatory Rivka Reyez Other [employer] Other Start: 05-13-2022 Office outpatient ne w 20 minutes Rivka Reyez [facility] Start: 04-24-2022 End: 04-25-[address] JIGNESH SAEZ Facility:[facility] Start: 09-27-2021 End: 09-27-[address] JIGNESH SAEZ Facility:[facility] Start: 07-17-2020 End: 07-18-2020 ambulatory UNKNOWN PROVIDER Facility:[facility] Start: 04-19-2017 End: 04-20-2017 Ambulatory DEFAULT PHYSICIAN Facility:[facility] Procedures Date Procedure Procedure Detail Performing Clinician Start: 12-01-2024 Creatinine blood Delmar Munson DO Work Phone: Start: 10-22-2024 CA ECHO DOPPLER COMPLETE Jignesh Saez MD Work Phone: Start: 09-21-2024 MULTIPLE LABS Not In Sy [...] Work Phone: Start: 07-05-2024 Gram stain microscopy T jean claude Sepulveda MD Work Phone: Start: 07-05-2024 CT [...] malign ant neoplasm of colon [facility] Start: 10-21-2025 Adult BMI Screening Adult BMI Screen ing [facility] Start: 10-21-2025 Tobacco Screening Tobacco Screening [facility] Start: 01-12-2025 End: 01-12-2025 Patient encounter procedure 01/12/2025 10:00 AM EST Office Visit [facility] [address] [place] [phone] Jignesh Saez MD [address] [place] [address] [facility] Start: 01-07-2025 Medicare Annual Well ness (AWV) Medicare Annual Wellness (AWV) [facility] Start: 11-25-2024 End: 11-25-2024 Patient encounter procedure 11/25/2024 7:00 AM EDT Appointment [facility] [address] [place] [address] Francesca Munson, DO [address] [place] [address] [phone] [facility] Start: 11-10-2024 End: 11-10-2024 Patient encounter procedure 11/10/2024 3:00 PM EDT Appointment [facility] [address] [place] [address] Francesca Munson, DO [address] [place] [address] [phone] [facility] Start: 11-02-2024 COVID-19 Vaccine ( season) COVID-19 Vaccine ( season) [facility] Start: 11-02-2024 Influenza vaccination N [facility] Start: 10-21-2024 End: 10-21-2025 CT Abdomen and Pelvis W contrast IV CT abdomen and pelvis with contrast Imaging Routine Bilateral upper abdominal pain Left lower quadrant abdominal pain Expected: 10/21/2024, Expires: 10/21/2025 [facility] Comment on above: Expected: 10/21/2024 , Expires: 10/21/2025 Start: 10-21-2024 End: 10-21-2025 CT Chest limited W contrast IV CT chest with contrast Imaging Routine Chest pain, unspecified type Expected: 10/21/2024, Expires: 10/21/2025 [employer] Work Phone: Comment on above: Expected: 10/21/2024 , Expires: 10/21/2025 Start: 10-21-2024 End: 10-21-2025 NM Biliary ducts and Gallbladder Views for patency of biliary structures and ejection fraction W sincalide and W radionuclide IV NM hepatobiliary system imaging with pharmacologic agent Imaging Routine Asymptomatic cholelithiasis Expected: 10/21/2024, Expires: 10/21/2025 [facility] Comment on above: Expected: 10/21/2024 , Expires: 10/21/2025 Start: 10-21-2024 End: 10-21-2024 Patient encounter procedure 10/21/2024 10:00 AM EDT Office Visit [facility] [address] [place] [phone] Francesca Munson DO [address] [place] [phone] [facility] Start: 10-13-2024 End: 10-13-2025 US.doppler Lower extremity vein - left Vascular US lower extremity venous duplex left Imaging Routine Lower extremity edema Expected: 10/13/2024, Expires: 10/13/2025 [facility] [employer] Work Phone: Comment on above: Expected: 10/13/2024 , Expires: 10/13/2025 Start: 10-13-2024 End: 10-13-2025 Vascular US lower extremity venous insufficiency left Vascular US lower extremity venous insufficiency left Imaging Routine Lower extremity edema Expected: 10/13/2024, Expires: 10/13/2025 [employer] Comment on above: Expected: 10/13/2024 , Expires: 10/13/2025 Start: 10-13-2024 End: 10-13-2024 Patient encounter procedure 10/13/2024 10:00 AM EDT Office Visit [facility] [address] [place] [address] Jignesh Saez MD [address] [place] [phone] Arrived [facility] Comment on above: Arrived Start: 09-29-2024 End: 09-29-2024 Patient encounter procedure 09/29/2024 1:30 PM EDT Office Visit [facility] [address] [place] [address] Jignesh Saez MD [address] [place] [phone] [facility] Start: 09-28-2024 End: 09-28-2024 Patient encounter procedure 09/28/2024 1:30 PM EDT Office Visit [facility] [address] [place] [address] Jignesh Saez MD [address] [place] [phone] [facility] Start: 09-10-2024 End: 09-10-2025 Basic metabolic 1998 panel - Serum or Plasma Basic metabolic panel Lab Routine Essential hypertension, benign Expected: 09/10/2024 (Approximate), Expires: 09/10/2025 [facility] Comment on above: Expected: 09/10/2024 (Approximate), Expires: 09/10/2025 Start: 09-10-2024 End: 09-10-2025 CBC W Auto Differential panel - Blood CBC and differential Lab Routine Encounter for long-term (current) use of medications Expected: 09/10/2024 (Approximate), Expires: 09/10/2025 [facility] Comment on above: Expected: 09/10/2024 (Approximate), Expires: 09/10/2025 Start: 09-10-2024 End: 09-10-2026 Echocardiogram 2D complete Echocardiogram 2D complete Echocardiography Routine Lower extremity edema SOB (shortness of breath) Expected: 09/10/2024 (Approximate), Expires: 09/10/2026 [facility] Work Phone: Comment on above: Expected: 09/10/2024 [...] Abdominal pain, generalized Expected: 09/10/2024, Expires: 09/10/2025 [facility] Comment on above: Expected: 09/10/2024 , Expires: 09/10/2025 Start: 07-15-2024 End: 07-15-2024 Patient encounter procedure 07/15/2024 11:00 AM EDT Office Visit [facility] [address] [place] [address] Jignesh Saez MD [address] [place] [phone] Arrived [facility] Comment on above: Arrived Start: 07-08-2024 [facility] Start: 07-05-2024 End: 07-05-2024 [facility] Start: 07-05-2024 Hospital admission [facility] Start: 07-05-2024 Microbial culture of sputum [facility] Start: 07-05-2024 CT Chest W contrast IV [facility] Start: 07-05-2024 CT of thorax with contrast CT chest w con [facility] Start: 07-05-2024 Plain chest X-ray XR chest 1V portab le [facility] Start: 07-05-2024 XR Chest Single view Fi [facility] Start: 06-29-2024 End: 06-29-2024 Patient encounter procedure 06/29/2024 2:15 PM EDT Office Visit [facility] [address] [place] [address] Jignesh Saez MD [address] [place] [phone] Arrived [facility] Comment on above: Arrived Start: 02-29-2024 Screening for malign ant neoplasm of breast Mammogram [facility] Start: 02-20-2024 End: 02-20-2024 Patient encounter procedure 02/20/2024 10:00 AM EST Office Visit [facility] [address] [place] [address] Jignesh Saez MD [address] [place] [address] [facility] Start: 01-08-2024 End: 01-07-2025 Basic metabolic 1998 panel - Serum or Plasma Basic metabolic panel Lab Routine Essential hypertension, benign (CMS/HCC) Expected: 01/08/2024 (Approximate), Expires: 01/07/2025 [facility] Comment on above: Expected: 01/08/2024 (Approximate), Expires: 01/07/2025 Start: 01-08-2024 End: 01-07-2025 CBC W Auto Differential panel - Blood CBC and differential Lab Routine Encounter for long-term (current) use of medications Expected: 01/08/2024 (Approximate), Expires: 01/07/2025 [facility] Comment on above: Expected: 01/08/2024 (Approximate), Expires: 01/07/2025 Start: 01-08-2024 End: 01-07-2025 Hemoglobin A1c/Hemoglobin.total in Blood Hemoglobin A1c Lab Routine Prediabetes Expected: 01/08/2024 (Approximate), Expires: 01/07/2025 [facility] Work Phone: Comment on above: Expected: 01/08/2024 (Approximate), Expires: 01/07/2025 Start: 01-08-2024 End: 01-07-2025 Hepatic function 2000 panel - Serum or Plasma Hepatic function panel Lab Routine Encounter for long-term (current) use of medications Expected: 01/08/2024 (Approximate), Expires: 01/07/2025 [facility] Comment on above: Expected: 01/08/2024 (Approximate), Expires: 01/07/2025 Start: 01-08-2024 End: 01-07-2025 Lipid 1996 panel - Serum or Plasma Lipid panel Lab Routine Dyslipidemia (CMS/HCC) Expected: 01/08/2024 (Approximate), Expires: 01/07/2025 [facility] Comment on above: Expected: 01/08/2024 (Approximate), Expires: 01/07/2025 Start: 01-08-2024 End: 01-07-2025 Thyrotropin [Units/volume] in Serum or Plasma TSH Lab Routine Prediabetes Overweight (BMI 25.0-29.9) Expected: 01/08/2024 (Approximate), Expires: 01/07/2025 [facility] Comment on above: Expected: 01/08/2024 (Approximate), Expires: 01/07/2025 Start: 01-08-2024 End: 01-08-2024 Patient encounter procedure [facility] Comment on above: Arrived Start: 12-10-2023 End: 12-09-2024 DXA Skeletal system Views for bone density DEXA bone density Imaging Routine Postmenopausal Expected: 12/10/2023, Expires: 12/09/2024 [facility] Work Phone: Comment on above: Expected: 12/10/2023 , Expires: 12/09/2024 Start: 12-10-2023 End: 12-10-2023 Patient encounter procedure [facility] Comment on above: Arrived Start: 11-03-2023 COVID-19 Vaccine ( season) COVID-19 Vaccine ( season) [facility] Start: 11-03-2023 Influenza vaccination Influenza Vacc ine (#1) [facility] Start: 09-08-2023 Screening for malign ant neoplasm of colon Colonoscopy [facility] Start: 05-07-2023 End: 05-07-2023 Patient encounter procedure 05/07/2023 9:15 AM EST Office Visit [facility] [address] [place] [phone] Jignesh Saez MD [address] [place] [phone] [facility] Start: 03-04-2023 Advance Directive Discussion Advance Directive Discussion [facility] Start: 11-02-2022 Covid-19 Vaccine ( season) Covid-19 Vaccine () [facility] Start: 11-02-2022 Influenza vaccination Influenza Vacc ine (#1) [facility] Start: 05-05-2019 Fall Risk Screening Fall Risk Screen ing [facility] Start: 05-05-2019 Pneumococcal Vaccine : 65+ (1 of 1 - PCV) Pneumococcal Vaccine: 65+ (1 of 1 - PCV) [facility] Start: 05-05-2019 Screening for osteoporosis Bone Density Screening [facility] Start: 2014 RSV Vaccine (1 - 1-d ose 60+ series) RSV Vaccine (1 - 1-dose 60+ series) [facility] Start: 2004 Administration of varicella zoster vaccine Zoster (Shingles) Vaccine (1 of 2) [facility] Start: 2004 Shingrix Vaccine (1 of 2) Shingrix Vaccine (1 of 2) [facility] Start: 05-05-1999 Diabetes Screening Diabetes Screenin g [facility] Start: 05-05-1999 Lipid panel Lipid Screening [facility] Start: 05-05-1999 Screening for malign ant neoplasm of colon [facility] Start: 1994 Screening for malign ant neoplasm of breast Mammogram Screening [facility] Start: 1973 DTaP,Tdap and Td Vaccines (1 - Tdap) DTaP,Tdap and Td Vaccines (1 - Tdap) [facility] Start: 1973 Pneumococcal Vaccine : 65+ Years (1 of 2 - PCV) Pneumococcal Vaccine: 65+ Years (1 of 2 - PCV) [facility] Start: 1973 Urine microalbumin profile DTaP,Tdap,Td Vaccine (1 - Tdap) [facility] Start: 1972 Adult BMI Follow Up Plan Adult BMI F ollow Up Plan [facility] Start: 1972 Adult BMI Screening Adult BMI Screen ing [facility] Start: 1972 Anxiety Screening Anxiety Screening [facility] Start: 1972 Depression Screening Depression Scre ening [facility] Start: 1972 Hepatitis C screening Hepatitis C Sc reening [facility] Start: 1966 Depression Screening Depression Scre ening [facility] Start: 1966 Tobacco Screening Tobacco Screening [facility] Start: 1960 Pneumococcal Vaccine : 65+ Years (1 - PCV) Pneumococcal Vaccine: 65+ Years (1 - PCV) [facility] Start: 1960 Pneumococcal Vaccine : 65+ Years (1 of 2 - PCV) Pneumococcal Vaccine: 65+ Years (1 of 2 - PCV) [facility] Start: 1954 Medicare Annual Well ness (AWV) Medicare Annual Wellness (AWV) [facility] Start: 1954 Screening for malign ant neoplasm of colon [facility] Albumin/Globulin ratio [facility] Anion gap measurement [facility] Basophils [#/volume] in Blood by Automated count [facility] Basophils/100 leukoc ytes in Blood by Automated count [facility] End: 10-21-2025 Creatinine includes GFR, serum Creatinine includes GFR, serum Lab Routine Chest pain, unspecified type Bilateral upper abdominal pain Left lower quadrant abdominal pain 1 Occurrences starting 10/21/2024 until 10/21/2025 [facility] Comment on above: 1 Occurrences starti ng 10/21/2024 until 10/21/2025 Eosinophils/100 leukocytes in Blood by Automated count [facility] Erythrocyte distribu tion width [Ratio] by Automated count [facility] Erythrocytes [#/volu me] in Blood [facility] Globulin [Mass/volum e] in Serum [facility] Hematocrit [Volume Fraction] of Blood [facility] Hemoglobin [Mass/vol ume] in Blood [facility] Leukocytes [#/volume ] corrected for nucleated erythrocytes in Blood by Automated coun [facility] Leukocytes [#/volume ] in Blood [facility] Lymphocytes [#/volum e] in Blood by Automated count [facility] Lymphocytes/100 leukocytes in Blood by Automated count [facility] MCH [Entitic mass] b y Automated count [facility] MCHC [Mass/volume] b y Automated count [facility] MCV [Entitic volume] by Automated count [facility] Monocytes [#/volume] in Blood by Automated count [facility] Monocytes/100 leukoc ytes in Blood by Automated count [facility] Neutrophils [#/volum e] in Blood by Automated count [facility] Neutrophils/100 leukocytes in Blood by Automated count [facility] Nucleated erythrocyt es [Presence] in Blood by Automated count [facility] Patient Education Azithromycin ( Systemic) Benzonatate Prednisone Know your Meds [facility] Work Phone: Patient referral [facility] Work Phone: Platelet mean volume [Entitic volume] in Blood by Automated count [facility] Platelets [#/volume] in Blood [facility] Payers Date Payer Category Payer Self-pay 2024 Medicare HMO [employer] [id number] 2024 Unknown [id number] 2023 Medicare WELLCARE MEDICAR E WELLCARE BY JO [id number] 2023-Present [address] [place] [id number] 2023 Medicare (Managed Care) [employer] MEDICARE [id number] 2023 Medicare [id number] 2019 Blue Cross Blue Shield BCBS [id number] 2019 Blue Cross Blue [facility] - Other ANTH [id number] 2019 Unknown 2015 Unknown [id number] 1959 Blue Cross Blue Shield [id number] 1959 Medicare [id number] 1954 Unknown [id number] 2.732 1954 Unknown [id number] [id number]. 2.593 1954 Unknown [id number] [id number]. 2.593 1954 Unknown [id number] [id number]. 2.1259 1954 Unknown [id number] [id number]. 2.1259 1954 Unknown [id number] [id number]. 2.1259 1954 Unknown [id number] [id number]. 2.1259 1954 Unknown [id number] [id number]. 2.1259 1954 Unknown [id number] [id number]. 2.1259 1954 Unknown [id number] [id number]. 2.1286 1954 Unknown [id number] [id number]. 2.1286 Unknown [id number]. 2.531 Social History Date Type Detail Facility Unknown if ever smoked [employer] Other Start: 04-14-2020 End: 02-19-2023 Sex Assigned At [employer] Other Start: 02-19-2023 End: 10-21-2024 Tobacco smoking status UTIS Ex-smoker [facility] End: 06-09-2017 History of tobacco use Current smoker [facility] End: 06-09-2017 History of tobacco use Cigarette Smoker [facility] Start: 04-14-2020 End: 02-19-2023 Cigarettes smoked current (pack per day) - Reported 0.3 [facility] Start: 02-19-2023 End: 10-21-2024 Tobacco use and exposure Smokeless tobacco non-user [facility] Start: 1955 Sex Assigned At Not on file N [facility] Start: 10-09-2023 End: 10-21-2024 Alcohol intake Current drinker of alcohol (finding) [facility] National Score (1-100), lower number is lower risk 80 [facility] Start: 10-09-2023 Alcohol Comment occasional [facility] Start: 10-07-2014 End: 07-05-2024 Sex Female (finding) [facility] Start: 1955 Sex Assigned At Female [facility] [place] Start: 07-07-2024 SDOH Follow up SDOH Follow up [facility] Work Phone: Start: 12-16-2020 Alcoholic beverage intake Current non-drinker of alcohol (finding) [facility] Start: 10-21-2024 Alcohol Comment [facility] Goals Date Patient Goal Desired Activity /State Functional Status Date Assessment Result Facility 07-08-2024 Functional status Patient at Baseline [facility] Work Phone: Mental Status Date Assessment Result Facility 07-08-2024 Cognitive function Cognitive Sta tus Patient at Baseline [facility] Work Phone: Clinical Notes 05-13-2022 to 12-02-2024 Telephone Encounter - Enriqueta Colon [facility] - 12/02/2024 10:41 AM EDTTelephone Encounter - Enriqueta Colon [facility] - 12/02/2024 10:41 AM EDTTelephone Encounter - Anitra Tan, [facility] - 11/05/2024 10:27 AM EDT Note Date & Type Note Facility 12-02-2024 Miscellaneous Notes Formattin g of this note might be different from the original. ----- Message from Francesca Munson DO sent at 12/02/2024 8:57 AM EDT ----- Regarding: RE: CT abdomen pelvis chest results Thanks. ----- Message ----- From: Enriqueta Colon CMA Sent: 12/02/2024 8:55 AM EDT To: Francesca Munson DO Subject: RE: CT abdomen pelvis chest results I will call patient this morning to see if she has the HIDA scan scheduled at [facility]. Will inform patient that we will schedule an appointment after receiving HIDA results. Thank you, Enriqueta ----- Message ----- From: Francesca Munson DO Sent: 12/02/2024 8:29 AM EDT To: Enriqueta Colon CMA Subject: CT abdomen pelvis chest results Please let patient know that she has a large hiatal hernia as well as a fatty liver. Did she have her CCK HIDA scan done yet? When she gets that done and I have the results we will call or she can come in for an appointment after all the above are completed. I need to speak to her again. ThanksDr. Grace Spoke with patient regarding CT results. Patient verbally understood with no further questions. Patient stated she will call [facility] today to schedule an appointment for the HIDA scan to be completed. Informed patient that per Dr. Munson, once HIDA has been completed, I will call her with results and we will schedule an appointment at that time. Patient verbally understood. documented in this encounter [facility] 12-02-2024 Telephone encount er Note ----- Message from Francesca Munson DO sent at 12/02/2024 8:57 AM EDT ----- Regarding: RE: CT abdomen pelvis chest results Thanks. ----- Message ----- From: Enriqueta Colon CMA Sent: 12/02/2024 8:55 AM EDT To: Francesca Munson DO Subject: RE: CT abdomen pelvis chest results I will call patient this morning to see if she has the HIDA scan scheduled at [facility]. Will inform patient that we will schedule an appointment after receiving HIDA results. Thank you, Enriqueta ----- Message ----- From: Francesca Munson DO Sent: 12/02/2024 8:29 AM EDT To: Enriqueta Colon CMA Subject: CT abdomen pelvis chest results Please let patient know that she has a large hiatal hernia as well as a fatty liver. Did she have her CCK HIDA scan done yet? When she gets that done and I have the results we will call or she can come in for an appointment after all the above are completed. I need to speak to her again. Thanks, [facility]24 Telephone encount er Note Spoke with patient regarding CT results. Patient verbally understood with no further questions. Patient stated she will call [facility] today to schedule an appointment for the HIDA scan to be completed. Informed patient that per Dr. Munson, once HIDA has been completed, I will call her with results and we will schedule an appointment at that time. Patient verbally understood. [facility] 11-20-2024 Miscellaneous Notes Formattin g of this note might be different from the original. After following up regarding Dr. Munson's orders for CT chest with contrast, CT abdomen and pelvis, and HIDA scan ordered for patient on 10/21/24, patient's insurance was out of network with [facility]. Testing was cancelled. Will contact patient to see if she would like to complete testing at another hospital system. Will inform Dr. Munson. [facility] Telephone encount er Note After following up regarding Dr. Munson's orders for CT chest with contrast, CT abdomen and pelvis, and HIDA scan ordered for patient on 10/21/24, patient's insurance was out of network with [facility]. Testing was cancelled. Will contact patient to see if she would like to complete testing at another hospital system. Will inform Dr. Munson. [facility] 11-05-2024 Miscellaneous Notes Formattin g of this note might be different from the original. I had a call from the Rivka at financial clearance for [facility]. Our [facility] hospitals are out of network for the patients insurance. Her visit would be covered because Dr Munson is in network, however she can't have the testing ( CT's & HIDA Scan) can't be performed at [facility]. She also couldn't have surgery at our hospital. I did explain to the patient that she could have it completed at another hospital and results sent to Dr Munson still, however he is only operating at [facility] at this time. That was verified by my anti air warfare operations officer & is open to change, to include [facility] but at this time, were only looking at [facility] in [place]. There is our patient financial representative that could help the patient set up financial arrangements. I offered Naz the number for Talita Donald, who is in that position, but Naz says she will speak with Dr Saez her PCP first. I told her it's still medically recommended that she has the testing that was ordered, she just needed to have that completed where her insurance is accepted. She checked with [facility], and asked me to fax it over to them. Originally she was going to go there & they asked for an office visit note to support an insurance pre-certification, so I sent the office note from Dr Munson and the order for the 2 C.T's, the HIDA, and the lab needed. I will call central scheduling through [facility] & let them know that she's having testing done elsewhere. documented in this encounter [facility] 11-05-2024 Telephone encount er Note I had a call from the Rivka at financial clearance for [facility]. Our [facility] hospitals are out of network for the patients insurance. Her visit would be covered because Dr Munson is in network, however she can't have the testing ( CT's & HIDA Scan) can't be performed at [facility]. She also couldn't have surgery at our hospital. I did explain to the patient that she could have it completed at another hospital and results sent to Dr Munson still, however he is only operating at [facility] at this time. That was verified by my anti air warfare operations officer & is open to change, to include [facility] but at this time, were only looking at [facility] in [place]. There is our patient financial representative that could help the patient set up financial arrangements. I offered Naz the number for Talita Donald, who is in that position, but Naz says she will speak with Dr Saez her PCP first. I told her it's still medically recommended that she has the testing that was ordered, she just needed to have that completed where her insurance is accepted. She checked with [facility], and asked me to fax it over to them. Originally she was going to go there & they asked for an office visit note to support an insurance pre-certification, so I sent the office note from Dr Munson and the order for the 2 C.T's, the HIDA, and the lab needed. I will call central scheduling through [employer] & let them know that she's having testing done elsewhere. [facility] 10-28-2024 Miscellaneous Notes Formattin g of this note might be different from the original. Naz called the office to see if she needed to go to [place] to get the testing that Dr Munson ordered. He ordered the following: CT of the abdomen & pelvis, CT of the chest, HIDA Scan, & Creatinine with GFR serum. I told her that when she calls the [employer] Central Scheduling, even though it's a [place] number, they will ask her which hospital location she wants. She does live closest to ([facility]) [facility]. She asked me if she could go there instead. I did fax the orders over to Central Scheduling at [facility]. Today when calling them to ensure they received the orders, Ortiz told me that they did, however they wouldn't call the patient to schedule, until they got approval from the pre-cert person which would take approximately 7-10 days. If they ran into any issues with getting an approval, they'd reach out to our office, at that time for progress notes and such. I then called the [facility] Central Scheduling and asked her what their process is.They're willing to get the patient scheduled right away and just schedule her out 7-10 days to make sure they do get the approval before her testing. Being that we're in the same system they will already have access to any thing they need such as progress notes etc... I was also assured that the patients insurance is in network with them. Including the [place] and [place] radiology. When I called Monica and told her the information I had gathered. She said that she'd be fine with just calling and scheduling the testing at [facility]. Which will also be great that Dr. Munson will have access to all of the results, much sooner. She's not scheduled yet. I did call Ortiz at [facility] Central Scheduling and let them know that she is now planning to just schedule with [facility]. I called Naz & she said that [facility] wouldn't schedule her until prior auth was approved. I reminded her what we had discussed that the other day. I also confirmed that day that they do accept her insurance. Remembering that conversation now, she called [phone] & they scheduled her for the first available in [place]. The CT is scheduled for 11-10-24 at 230 pm, and HIDA is scheduled for 11/25/24 at 7 a.m. I also called Central Scheduling a second time to verify that they do take her insurance & they sais yes, they do. documented in this encounter [facility] 10-28-2024 Telephone encount er Note Naz called the office to see if she needed to go to [place] to get the testing that Dr Munson ordered. He ordered the following: CT of the abdomen & pelvis, CT of the chest, HIDA Scan, & Creatinine with GFR serum. I told her that when she calls the [facility] Central Scheduling, even though it's a [place] number, they will ask her which hospital location she wants. She does live closest to ([facility]) [facility]. She asked me if she could go there instead. I did fax the orders over to Central Scheduling at [facility]. Today when calling them to ensure they received the orders, Ortiz told me that they did, however they wouldn't call the patient to schedule, until they got approval from the pre-cert person which would take approximately 7-10 days. If they ran into any issues with getting an approval, they'd reach out to our office, at that time for progress notes and such. I then called the [facility] Central Scheduling and asked her what their process is.They're willing to get the patient scheduled right away and just schedule her out 7-10 days to make sure they do get the approval before her testing. Being that we're in the same system they will already have access to any thing they need such as progress notes etc... I was also assured that the patients insurance is in network with them. Including the [place] and [place] radiology. When I called Monica and told her the information I had gathered. She said that she'd be fine with just calling and scheduling the testing at [facility]. Which will also be great that Dr. Munson will have access to all of the results, much sooner. She's not scheduled yet. I did call Ortiz at [facility] Central Scheduling and let them know that she is now planning to just schedule with [facility]. [facility] 10-28-2024 Telephone encount er Note I called Naz & she said that [facility] wouldn't schedule her until prior auth was approved. I reminded her what we had discussed that the other day. I also confirmed that day that they do accept her insurance. Remembering that conversation now, she called [phone] & they scheduled her for the first available in [place]. The CT is scheduled for 11-10-24 at 230 pm, and HIDA is scheduled for 11/25/24 at 7 a.m. I also called Central Scheduling a second time to verify that they do take her insurance & they sais yes, they do. [facility] 10-21-2024 History of Presen t illness Narrative Images from the original note were not included. [facility] [id number] [facility] [id number] CONSULT NOTE CHIEF COMPLAINT Chief Complaint Patient [...] ultrasound of the gallbladder performed at [facility] on September 21, 2024 which showed fatty infiltration of the liver with cholelithiasis with mild dilatation of the common bile duct and no wall thickening of the gallbladder and negative Hooper sign. She can not remember when she last had a colonoscopy but it was done at [place]. She has a history of polyps in [...] Date Asthma COPD (chronic obstructive pulmonary disease) ([facility]) GERD (gastroesophageal reflux disease) Hypertension SURGICAL HISTORY Past Surgical History: Procedure Laterality Date COLONOSCOPY COLONOSCOPY N/A 10/09/2018 Performed by Francesca Munson DO at [facility] LOCAL EXCISION SKIN TAG Right 10/09/2018 Performed by Francesca Munson DO at [facility] TUBAL LIGATION WRIST FRACTURE SURGERY Left 02/2024 [...] patient/family/caregiver Referring and communicating with other health career discovery teacher - Francesca Munson DO 10/21/24 10:15 AM This note was created with the assistance of a speech recognition program. While intending to generate a timely document that accurately reflects the content of the visit, no guarantee can be provided that every grammatical or spelling mistake has been or will be identified or corrected. Thank you for your understanding. documented in this encounter [facility] 10-13-2024 History of Presen t illness Narrative Associated Problem(s): Nonalcoholic fatty liver [...] note were not included. Subjective Patient ID: Radha Ernandez is a 69 y.o. female who [...] cholesterol and BS. documented in this encounter [facility] 09-10-2024 History of Presen t illness Narrative Associated Problem(s): Lower extremity edema [...] note were not included. Subjective Patient ID: Radha Ernandez is a 69 y.o. female who [...] Orders US RUQ documented in this encounter [facility] 07-15-2024 History of Presen t illness Narrative Associated Problem(s): Acute hypoxic respiratory failure (CMS/HCC) Recent hypoxia and on oxygen but able to wean to room air. Monitor SpO2. Associated Problem(s): COPD (chronic obstructive pulmonary disease) (CMS/HCC) Recent exacerbation and hypoxia but improved. Continue advair and use albuterol PRN. Images from the original note were not included. Subjective Patient ID: Radha Ernandez is a 69 y.o. female who presents for Follow-up ([facility] f/up copd). Hospital follow up from 07/05-07/08 [...] air. Monitor SpO2. documented in this encounter [facility] 07-08-2024 Progress note Note Date/Time July 07, 2024 10:04pm [facility] [address] [place] [address] Hospitalist Progress Note Signed Patient: Radha Ernandez MR#: [id number] : 1955 Acct:[id number] Age/Sex: 69 / F Adm Date: 5 Loc: Room: [address] [place] [address] Type: ADM IN Attending Dr: Eliu Schmitz [...] 07/05/24 11:22 07/05/24 11:22 07/05/24 11:22 07/05/24 11:07/05/24 11:22 Narrative: CONST- alert, in bed, elderly [...] <Electronically signed by Eliu Schmitz MD> 07/07/24 2208 [facility] Work Phone: 1(194) 332-460205-07-2025 Progress note Author Linda Antonio [facility] Note Date/Time July 07, 2024 10:04p m [facility] [address] [place] [address] Hospitalist Progress Note Signed Patient: Radha Ernandez MR#: [id number] : 1955 Acct:[id number] Age/Sex: 69 / F Adm Date: 5 Loc: Room: [address] [place] [address] Type: ADM IN Attending Dr: Eliu Schmitz [...] 07/26 0945 Signed By: <Electronically signed by ME Antonio> 07/06/24 1404 <Electronically signed by Eliu Shcmitz MD> 07/07/24 8833 [facility] Work Phone: 1(967) 439-875105-07-2025 Progress note Author Linda Antonio [facility] Note Date/Time July 07, 2024 10:03p m [facility] [address] [place] [address] Hospitalist Progress Note Signed Patient: Radha Ernandez MR#: [id number] : 1955 Acct:[id number] Age/Sex: 69 / F Adm Date: 5 Loc: 3T Room: [address] [place] [address] Type: ADM IN Attending Dr: Eliu Schmitz [...] next 24-48hr, [facility] Chronic conditions Hypertension-amlodipine GERD/hiatal hernia-pantoprazole Documented By: Linda Antonio, EM 08/26 1030 Signed By: <Electronically signed by EM Antonio> 07/07/24 1430 <Electronically signed by Eliu Schmitz MD> 07/07/24 7430 [facility] Work Phone: 1(690) 320-792705-06-2025 [place] [id number] Hospital[place] Progress Note Signed Patient: Radha Ernandez MR#: [id number] : 1955 Acct:[id number] Age/Sex: 69 / F Adm Date: 5 Loc: Room: [address] [place] [address] Type: ADM IN Attending Dr: Eliu Schmitz [...] 07/05/24 09:00 07/05/24 08:06 Pantoprazole 40 Mg Tablet.Dr PARRA 07/05/25 08:59 [...] Antonio APRN 06/26 1128 Signed By: 07/05/24 9847 07/07/24 6347 [facility]05-06-2025 [place] [id number] Hospitalist Progress Note Signed Patient: Radha Ernandez MR#: [id number] : 1955 Acct:[id number] Age/Sex: 69 / F Adm Date: 5 Loc: 3T Room: [address] [place] [address] Type: ADM IN Attending Dr: Eliu Schmitz [...] 09:00 07/06/24 09:56 Pantoprazole 40 Mg Tablet.Dr PO 07/05/25 08:59 40 mg DAILY JOSTIN [...] 07/26 0945 Signed By: 07/06/24 1404 07/07/24 2204 [facility]05-06-20[place] [address] Hospitalist Progress Note Signed Patient: Radha Ernandez MR#: [id number] : 1955 Acct:[id number] Age/Sex: 69 / F Adm Date: 5 Loc: 3T Room: [address] [place] [address] Type: ADM IN Attending Dr: Eliu Schmitz [...] next 24-48hr, [facility] Chronic conditions Hypertension-amlodipine GERD/hiatal hernia-pantoprazole Documented By: Linda Antonio APRN 08/26 1030 Signed By: 07/07/24 1430 07/07/24 2203 [facility]2025 Radiology Diagnostic study note [facility] Main [place] [address] [place] [address] CT Scan Report Signed Patient: Radha Ernandez MR#: [id number] : 1955 Acct:[id number] Age/Sex: 69 / F ADM Date: 5 Loc: Room: [address] [place] [address] Type: ADM IN Attending Dr: Eliu Schmitz [...] West M.D. 07/05/2024 9:18 AM Dictation Location: [place] [address] Transcribed By: [facility] 07/05/24917 Dictated By: Phillip West MD 07/05/24 0914 Signed By: 07/05/24 0918 [facility] Work Phone: 1(555) 126-874205-04-2025 History and physical note Author Genie Man [facility] Note Date/Time July 05, 2024 3:36am [facility] [address] [place] [address] Hospitalist H&P Signed Patient: Radha Ernandez MR#: [id number] : 1955 Acct:[id number] Age/Sex: 69 / F Adm Date: 5 Loc: 3T Room: [address] [place] [address] Type: ADM IN Attending Dr: Genie Man [...] with no significant improvement. Patient was in [place] nearby and was driving home to [place], she felt short of breath, got out [...] negative unless noted below or in HPI [facility] Medical History COPD (chronic obstructive pulmonary disease) [...] % (Auto) 29.7 % (.) 07/05/24 00:00 [place] % (Auto) 9.0 % (.) 07/05/24 00:00 Eos % (Auto) 1.5 % (.) 07/05/24 00:00 Baso % (Auto) 0.7 % (.) 07/05/24 00:00 Nucleat RBC Rel Count 0.1 /100 WBC (0-0.5) 07/05/24 00:00 Neut # (Auto) 6.7 x10E3/uL (1.8-7.7) 07/05/24 00:00 Lymph # (Auto) 3.4 x10E3/uL (1.00-4.8) 07/05/24 00:00 Fayette # (Auto) 1.0 x10E3/uL (0.0-0.8) H 07/05/24 [...] signed by Genie Man MD> 07/05/24 0336 [facility] Work Phone: 1(826) 831-299405-04-2025 Evaluation note* Diagnosis Onset Date Resolution Status Admit Date Acute hypoxic respiratory failure ac chipewwa July 05, 2024 2:05am COPD exacerbation acute July 2:05am GERD (gastroesophageal reflu x disease) acute July 05, 2024 2: 05am Hypertension acute July 05 2:05am [facility] Work Phone: 1(121) 164-919805-04-2025 [place] [address] Hospitalist H&P Signed Patient: Radah Ernandez MR#: [id number] : 1955 Acct:[id number] Age/Sex: 69 / F Adm Date: 5 Loc: Room: [address] [place] [address] Type: ADM IN Attending Dr: Genie Man [...] days with nosignificant improvement. Patient was in [place] nearby and was driving home to [place], she felt short of breath, got out [...] negative unless noted below or in HPI [facility] Medical History COPD (chronic obstructive pulmonary disease) [...] % (Auto) 29.7 % (.) 07/05/24 00:00 [place] % (Auto) 9.0 % (.) 07/05/24 00:00 Eos % (Auto) 1.5 % (.) 07/05/24 00:00 Baso % (Auto) 0.7 % (.) 07/05/24 00:00 Nucleat RBC Rel Count 0.1 /100 WBC (0-0.5) 07/05/24 00:00 Neut # (Auto) 6.7 x10E3/uL (1.8-7.7) 07/05/24 00:00 Lymph # (Auto) 3.4 x10E3/uL (1.00-4.8) 07/05/24 00:00 [place] # (Auto) 1.0 x10E3/uL (0.0-0.8) H 07/05/24 [...] MD 07/05/2404 11 Signed By: 07/05/24 0336 [facility]04-28-2025 History of Present illness Narrative * Jignesh Saez MD - 06/29/2024 3:15 PM EDTAssociated Problem(s): COPD (chronic obstructive pulmonary disease) ([facility]) Currently having an exacerbation of COPD. Treat with prednisone and add levaquin. Use albuterol PRN. * Jignesh Saez MD - 06/29/2024 2:15 PM EDT Images from the original note were not included. Subjective Patient ID: Radha Ernandez is a 69 y.o. female who [...] This Visit COPD (chronic obstructive pulmonary disease) ([facility]) - Primary Currently having an exacerbation of COPD. Treat with prednisone and add levaquin. Use albuterol PRN. Relevant Medications levoFLOXacin (Levaquin) 750 MG tablet predniSONE (Deltasone) 10 MG tablet albuterol (2.5 MG/3ML) 0.083% nebulizer solution documented in this encounterSaint Alexius [id number] History of Present illness Narrative* Jignesh Saez [...] ESTAssociated Problem(s): COPD (chronic obstructive pulmonary disease) ([facility]) Breathing stable and continue trelegy. Use albuterol PRN. * Jignesh Saez MD - 01/08/2024 11:00 AM EST Images from the original note were not included. Subjective Patient ID: Radha Ernandez is a 68 y.o. female who [...] differential Hepatic function panel documented in this encounterSaint Alexius [id number] History of Present illness Narrative* Jignesh Saez [...] note were not included. Subjective Patient ID: Radha Ernandez is a 68 y.o. female who [...] Orders DEXA bone density documented in this encounterSaint Alexius [id number] NoteDate of Procedure 10/09/2023. Notes Bilateral upper eyelid ptosis with brow ptosis, dermatochalasis, skin on lashes temporally.[id number] NoteDate of Procedure 10/09/2023. Mailroom Clerk Information Right Eye Difference between Bishop visual field results of lids tapped and untaped 15. Left Eye Difference between Bishop visual field results of lids tapped and untaped 15. Interpretation Right Eye Decreased superior visual field. Left Eye Decreased superior visual field.[id number] Instructions* Patient Instructions* Gideon Ruelas MD - [...] hold pressure 10-15 min documented in this encounterK[facility]08-[facility]-2024 NoteHNO ID: [id number] Author: GIDEON RUELAS MD Service: ? Author Type: Fellow Type: Progress Notes Filed: 11/06/2023 15:39 Note Text: History: Radha Ernandez is a 68 year old woman with history of droopy eyelids, now bothersome for the past year. She was referred by her grooming salon manager Dr. Westbrook for dermatochalasis. She is most [...] by others. I have seen and examined Radha Ernandez. I also have reviewed and agree [...] the above, please contact me directly at [phone]. Gideon Ruelas, [facility]08-07-2024 History of Present illness Narrative* Gideon Ruelas MD - 10/09/2023 11:17 AM EDT History: Radha Ernandez is a 68 year old woman with history of droopy eyelids, now bothersome for the past year. She was referred by her grooming salon manager Dr. Westbrook for dermatochalasis. She is most [...] in 1 year prn. documented in this encounterK[facility]02-08-2024 History of Present illness Narrative* Jignesh Saez [...] 04/11/2023 1:00 PM EST Subjective Patient ID: Radha Ernandez is a 67 y.o. female who [...] (Adipex-P) 37.5 MG tablet documented in this encounterNOMS [id number] Evaluation note* Encounter Date Diagnosis Assessment Notes Treatment Notes Treatment Clinical Notes May, Bug bite, initial encounter (ICD-10 - W57.XXXA) Take medications as directed. Complete all doses. Unable to determine what type of insect cause bites. . Follow up with primary care provider if no improvement of symptoms with treatment plan [facility] Other Evaluation note* Diagnosis Essential hypertension, benign (CMS/HCC)- Primary Essential hypertension, benign Chronic obstructive pulmonary disease, unspecified COPD type (CMS/HCC) Tobacco user Tobacco use disorder Obesity (BMI 30-39.9) Lower extremity edema Edema documented in this encounter [facility]* Diagnosis Ptosis of both eyelids- Primary Unspecified ptosis of eyelid documented [facility] encounter [facility]* Diagnosis Closed Colles' fracture of left radius with routine healing- Primary Essential hypertension, benign (CMS/HCC) Essential hypertension, benign Postmenopausal Asymptomatic postmenopausal status (age-related) (natural) documented in this encounter [facility]* Diagnosis Essential hypertension, benign (CMS/HCC)- [...] fracture (CMS/HCC)- Primary documented [facility] this encounter [facility]* Diagnosis Essential hypertension, benign (CMS/HCC)- [...] (BMI 25.0-29.9) Overweight documented in this encounter [facility] HealthcareEvaluation note* Diagnosis Essential hypertension, benign (CMS/HCC)- [...] exacerbation (CMS/HCC)- Primary documented in this encounter [facility] HealthcareEvaluation note* Diagnosis Onset Date Resolution Status Admit Date Acute hypoxic respiratory failure ac chipewwa July 05, 2024 2:05am COPD exacerbation acute July 2:05am [facility] Work Phone: Evaluation note* Diagnosis [...] respiratory failure (CMS/HCC) documented in this encounter [facility] HealthcareEvaluation note* Diagnosis Essential hypertension, [...] of other medications documented in this encounter [facility] HealthcareEvaluation note* Diagnosis Essential hypertension, benign- Primary [...] Nonalcoholic fatty liver documented in this encounter [facility] HealthcareEvaluation note* Diagnosis Chest pain, unspecified type- Primary Bilateral upper abdominal pain Left lower quadrant abdominal pain Asymptomatic cholelithiasis documented in this encounter [facility] noteNo assessment information available [facility] Work Phone: Evaluation note* Diagnosis Chest pain, unspecified type Bilateral upper abdominal pain Left lower quadrant abdominal pain [facility] encounter [facility] SystemHistory general Narrative - Reported* Type Description Date Medical History Esophageal reflux Medical History Hypertension Medical History Chronic bronchitis Surgical History tubal Surgical History appendectomy Hospitalization History see above Hospitalization History sob, low 02 levels 06/21 18 07/2017 [facility] Other Hospital Discharge instructionsAmbulatory Orders* DME Home Medical Equipment Time Frame: 1 Day, Location: Determined By Patient [facility] Work Phone: InstructionsNot on filedocumented in this encounter [facility] SystemInstructionsNot on filedocumented in this encounter [facility] SystemInstructionsNot on filedocumented in this encounter [facility] SystemInstructionsNot on filedocumented in this encounter [facility] SystemReason for referral (narrative)No reason for referral information availableKing'[facility] [place] Work Phone: Summary Purpose Family History Relationship Condition Age at Onset Recorded Date/T pavan brother Unknown Diabetes mellitus Unknown father Unknown Malignant neoplasm Unknown Advance Directives Advance Directive Response Recorded Date/ Time Advance Directives No March 08, 2017 11:00am Reason for Referral Specialty Diagnoses / Procedures Referred By Renetta t Referred To Contact Diagnoses Obesity (BMI 30-39.9) Jignesh Saez MD [address] [place] [address] Referral ID Status Reason Start Date Expiration Date V isits Requested Visits Authorized [id number] Pending Review 1 1 Chief Complaint and [...] 2024 2:05am Hypertension July 05, 2024 2:05am Chief Complaint Admit Date upper resp. infection November 18 7:50am Additional Source Comments INFORMATION SOURCE (unrecogn ized section and content) DATE CREATED AUTHOR 08/23/[address] [facility] DATE CREATED AUTHOR AUTHOR'S ORGANIZ ATION 07/18/2020 [facility] DATE CREATED AUTHOR AUTHOR'S ORGANIZ ATION 07/11/2022 [facility] DATE CREATED AUTHOR AUTHOR'S ORGANIZ ATION 11/08/2023 [facility] DATE CREATED AUTHOR AUTHOR'S ORGANIZ ATION 10/14/2024 [facility] DATE CREATED AUTHOR AUTHOR'S ORGANIZ ATION 10/21/2024 [facility] DATE CREATED AUTHOR AUTHOR'S ORGANIZ ATION 11/13/2024 [facility] REASON FOR VISIT (unrecogniz ed section and content) Reason Comments Follow-up 1 m Reason Comments Dermatochalasis Evaluation Reason Comments Follow-up Broken wrist Reason Comments Medicare Annual Wellness Visit Subsequen t Wellness Reason Comments Follow-up Cough, hard to breat h Reason Comments Follow-up [facility] f /up copd Reason Comments Follow-up Pain/swelling in leg s, feet and stomach Reason Comments Follow-up Discuss test results Reason Comments Cholelithiasis Calculus of gallblad jordon, abdominal pain, referred by Dr. Saez Specialty Diagnoses / Procedures Referred By Renetta hackett Referred To Contact General Surgery Diagnoses Calculus of gallbladder without cholecystitis without obstruction Generalized abdominal pain Procedures MD OFFICE OUTPATIENT VISIT 60-74 MINS HIGH MDM [id number] (SNOMED CT) - AMB REFERRAL TO GENERAL SURGERY Jignesh Saez MD [address] [place] [address] Phone: tel: fax: Francesca Munson DO [address] [place] [address] Phone: tel: fax: Referral ID Status Reason Start Date Expiration Date Visits Re quested Visits Authorized [id number] Closed 10/13/2024 04/11/2025 1 1 Care Teams [...] July 05, 2024 End: July 08, 2024 Edger Tailer Relationship Specialty Start Date End Date Jignesh Saez MD [address] [place] [address] PCP - General Family Medicine 04/11/23 Edger Tailer Relationship Specialty Start Date End Date Jignesh Saez MD [address] [place] [address] PCP - General Family Medicine 04/11/23 Edger Tailer Relationship Specialty Start Date End Date Jignesh Saez [address] [place] [address] PCP - General Family Medicine 09/26/23 Edger Tailer Relationship Specialty Start Date End Date Jignesh Saez MD [address] [place] [address] PCP - General Family Medicine 04/11/23 Edger Tailer Relationship Specialty Start Date End Date Jignesh Saez MD [address] [place] [address] PCP - General Family Medicine 04/11/23 Edger Tailer Relationship Specialty Start Date End Date Jignesh Saez MD [address] [place] [address] PCP - General Family Medicine 04/11/23 Edger Tailer Relationship Specialty Start Date End Date Jignesh Saez MD [address] [place] [address] PCP - General Family Medicine 04/11/23 Edger Tailer Relationship Specialty Start Date End Date Jignesh Saez MD [address] [place] [address] PCP - General Family Medicine 04/11/23 Edger Tailer Relationship Specialty Start Date End Date Jignesh Saez MD [address] [place] [address] PCP - General Family Medicine 04/11/23 Edger Tailer Relationship Specialty Start Date End Date Jignesh Saez MD [address] [place] [address] PCP - General Family Medicine 04/11/23 Edger Tailer Relationship Specialty Start Date End Date Jignesh Saez MD [address] [place] [address] PCP - General Family Medicine 04/11/23 Team Status: Active Member Role Status Jackie Sepulveda Jr, MD Emergency Provider Active Start: July 05, 2024 Jignesh Saez MD Primary Care Provider Active S tart: July 05, 2024 Genie Man MD Admit Provider, Attending Provi jordon Active Start: July 05, 2024 Edger Tailer Relationship Specialty Start Date End Date Jignesh Saez MD [address] [place] [address] PCP - General Family Medicine 04/11/23 Edger Tailer Relationship Specialty Start Date End Date Jignesh Saez MD [address] [place] [address] PCP - General Family Medicine 04/11/23 Edger Tailer Relationship Specialty Start Date End Date Jignesh Saez MD [address] [place] [address] PCP - General Family Medicine 04/11/23 Edger Tailer Relationship Specialty Start Date End Date Jignesh Saez MD [address] [place] [address] PCP - General Family Medicine 04/11/23 Edger Tailer Relationship Specialty Start Date End Date Jignesh Saez MD [address] [place] [address] PCP - General Family Medicine 04/11/23 Edger Tailer Relationship Specialty Start Date End Date Jignesh Saez MD [address] [place] [address] PCP - General Family Medicine 04/11/23 Edger Tailer Relationship Specialty Start Date End Date Jignesh Saez MD PCP - General Family Medicine 10/01/18 Edger Tailer Relationship Specialty Start Date End Date Jignesh Saez MD PCP - General Family Medicine 10/01/18 Edger Tailer Relationship Specialty Start Date End Date Jignesh Saez MD [address] [place] [address] PCP - General Family Medicine 04/11/23 Edger Tailer Relationship Specialty Start Date End Date Jignesh Saez MD PCP - General Family Medicine 10/01/18 Edger Tailer Relationship Specialty Start Date End Date Jignesh Saez MD PCP - General Family Medicine 10/01/18 Team Status: Inactive Member Role Status Dates Jignesh Saez MD Primary Care Provider Active S tart: November 18, 2024 End: November 18, 2024 Jignesh Saez MD Attending Provider Active Star t: November 18, 2024 End: November 18, 2024 Edger Tailer Relationship Specialty Start Date End Date Jignesh Saez MD PCP - General Family [facility] 10/01/18 Source Comments (unrecognize d section and content) In the event this informatio n is protected by the Federal Confidentiality of Alcohol and Drug Abuse Patient Records regulations: The Federal rules restrict any use of the information to criminally investigate or prosecute any alcohol or drug abuse patient.[facility] Goals (unrecognized section and content) Goals may [...] BE BASED ON THE PRIMARY CLINICAL RECORDS. [employer] [facility]. provides no warranty or guarantee of the accuracy or completeness of information in this document.
== END 2024-12-10 08:21 | disposition home or self-care (01) ==
LOC: NM 08:20
PROVIDERS: PCP Family Medicine; Visit Provider Surgery
DX: K80.20 Calculus of gallbladder without cholecystitis without obstruction (principal)
CPT/HCPCS: 78227; A9537